=== PATIENT | male | born 1955 | race Caucasian/White ===

== ENCOUNTER → 2017-11-05 17:35 | Outpatient (CLI) | payer OTHER, SELFPAY ==
[2017-11-05] VITALS (16 sets, daily range): BP systolic 111–147; BP diastolic 53–87; PULSE 76–89; RESP 16–17; TEMP 36.1–36.5; O2SAT 99–100; BMI 36.2
[2017-11-05 20:22] LABS: POC Glucose,Bedside 336 (70-110)
[2017-11-06 00:30] VITALS: BP 124/63; PULSE 74; RESP 17; TEMP 36.2; O2SAT 98
[2017-11-06 00:50] VITALS: BP 126/67; PULSE 80; RESP 17; TEMP 36.1; O2SAT 98
[2017-11-06 01:50] VITALS: BP 125/70; PULSE 82; RESP 17; TEMP 36.1; O2SAT 100
[2017-11-06 02:11] VITALS: BP 125/70; PULSE 82; RESP 17; TEMP 36.1; O2SAT 100
[2017-11-06 02:13] LABS: Hematocrit 31.8 % (42.0-52.0)
[2017-11-06 02:17] LABS: Hemoglobin 9.5 g/dL (14.1-18.0)
== END | disposition home or self-care (01) ==
PROVIDERS: Family Provider Family Medicine; PCP Family Medicine; Visit Provider Internal Medicine Adolescent Medicine
DX: D64.9 Anemia, unspecified (principal)
CPT/HCPCS: 36415; 36430; 82962; 85014; 85018; 86850; P9016

== ENCOUNTER → 2017-11-07 10:14 | Outpatient (CLI) | payer OTHER, SELFPAY ==
[2017-11-07 13:27] LABS: Basophils % 0.7 % (0.1-2.0); Eosinophils # 0.2 K/mm3 (0.0-0.4); Eosinophils % 3.5 % (0.1-12.0); Hematocrit 32.5 % (42.0-52.0); Hemoglobin 9.6 g/dL (14.1-18.0); Lymphocytes % 41.9 K/mm3 (10-50); Mean Corpuscular HGB Conc 29.5 g/dL (31.8-35.4); Mean Corpuscular Volume 81.1 fl (80-94); Mean Platelet Volume 8.5 fl (7.4-10.4); Monocytes # 0.3 K/mm3 (0.1-1.0); Monocytes % 6.3 % (1.7-9.3); Neutrophils # 2.3 K/mm3 (1.8-7.8); Neutrophils % 47.5 % (37.0-80.0); Platelet Count 305 K/mm3 (142-424); Red Blood Count 4.01 M/mm3 (4.60-6.20); Red Cell Distribution Width 14.5 % (11.5-17.5); White Blood Count 4.8 K/mm3 (4.8-10.8)
[2017-11-07 13:51] LABS: Alanine Aminotransferase 143 U/L (12-78); Albumin Level 3.8 gm/dL (3.4-5.0); Albumin/Globulin Ratio 1.2 (1.1-1.8); Alkaline Phosphatase 140 U/L (46-116); Anion Gap 13.7 mEq/L (5-15); Aspartate Amino Transferase 99 U/L (15-37); Bilirubin,Total 0.5 mg/dL (0.2-1.0); Blood Urea Nitrogen 11 mg/dL (7-18); Calcium 8.9 mg/dL (8.5-10.1); Carbon Dioxide 28 mmol/L (21.0-32.0); Chloride 103 mmol/L (98-107); Creatinine,Serum 1.26 mg/dL (0.70-1.30); Estimated Glomerular Filt Rate 58 ml/min (>60); GFR (African American) 71 ML/MIN (>60); Globulin 3.3 gm/dl (1.3-3.2); Glucose 211 mg/dL (74-106); Magnesium 1.5 mg/dL (1.4-2.2); Potassium 3.7 mmoL/L (3.5-5.1); Sodium 141 mmol/L (136-145); Total Protein,Serum 7.1 gm/dL (6.4-8.2)
== END ==
PROVIDERS: Visit Provider Nurse Practitioner Family
DX: D64.9 Anemia, unspecified (principal); N18.9 Chronic kidney disease, unspecified
CPT/HCPCS: 36415; 80053; 83735; 85025

== ENCOUNTER → 2017-11-09 08:43 | Outpatient (CLI) | payer OTHER, SELFPAY ==
--- NOTE | 2017-11-09 08:45 | CA_ITS ---
PROCEDURE: 2-D M-mode and color Doppler study INDICATIONS FOR THE TEST: Chest pain X COPDX Heart Murmur Tobacco SmokingEX Palpitations FatigueX Syncope Edema HypertensionXDiabetes MellitusX Rheumatic Fever SOBXDOEXObesityXHyperlipidemiaX Family History HD Additional History CKD PATIENT INFORMATION HEIGHT: 71 WEIGHT:258 GENDER: Male B/P:170/81 2-D/M-MODE INTERPRETATION: 2-D MEASUREMENTS OBSERVED VALUES IN CMS Right Ventricular Dimension (RVDd) 2.3 Interventricular Septum (Thickness)(IVsd) .9 Left Ventricular Internal Dimensions(LVIDd) 5.7 Left Ventricular Posterior Wall (Thickness)(LVPWd) .9 Aortic Root 3.8 Aortic Cusp Separation 2.0 Left Atrial Dimensions (LAD) 3.3 2D 1. Left atrium is normal size, left ventricle is normal size, there is no concentric left ventricular hypertrophy, visually estimated ejection fraction 55% with no obvious regional wall motion abnormality. 2. The right atrium and right ventricle are normal size and contractility. 3. The aortic valve is minimally thickened and fibrosed. 4. The mitral and tricuspid valve leaflets are minimally thickened. 5. The pulmonic valve is poorly visualized. 6. No significant pericardial effusion noted. DOPPLER INTERROGATION: Doppler interrogation of the aortic, mitral and tricuspid valvular presence of mild mitral and tricuspid regurgitation, tricuspid regurgitant jet velocity is insufficient for calculation of the right ventricular systolic pressure, diastolic parameters are within normal range. CONCLUSION: 1. Normal left ventricular size, preserved left ventricular systolic function, visually estimated ejection fraction 55% with no obvious regional wall motion abnormality, diastolic parameters are within normal range. 2. Mild mitral and tricuspid regurgitation 3. No significant pericardial effusion noted.
== END ==
PROVIDERS: Family Provider Family Medicine; PCP Family Medicine; Visit Provider Internal Medicine
DX: D64.9 Anemia, unspecified
CPT/HCPCS: 93306

== ENCOUNTER → 2017-11-20 07:59 | Outpatient (CLI) | payer OTHER, SELFPAY ==
[2017-11-20 08:40] LABS: Basophils % 1.1 % (0.1-2.0); Eosinophils # 0.1 K/mm3 (0.0-0.4); Hematocrit 30.5 % (42.0-52.0); Hemoglobin 8.5 g/dL (14.1-18.0); Lymphocytes # 1.9 K/mm3 (0.7-4.5); Lymphocytes % 48.8 K/mm3 (10-50); Mean Corpuscular HGB Conc 28.1 g/dL (31.8-35.4); Mean Corpuscular Hemoglobin 22.8 pg (27.0-31.2); Mean Corpuscular Volume 81.1 fl (80-94); Mean Platelet Volume 9.4 fl (7.4-10.4); Monocytes # 0.3 K/mm3 (0.1-1.0); Monocytes % 8.4 % (1.7-9.3); Neutrophils # 1.5 K/mm3 (1.8-7.8); Neutrophils % 38.7 % (37.0-80.0); Platelet Count 237 K/mm3 (142-424); Red Blood Count 3.75 M/mm3 (4.60-6.20); White Blood Count 3.8 K/mm3 (4.8-10.8)
[2017-11-20 09:00] LABS: Alanine Aminotransferase 56 U/L (12-78); Albumin Level 3.4 gm/dL (3.4-5.0); Albumin/Globulin Ratio 1.1 (1.1-1.8); Alkaline Phosphatase 153 U/L (46-116); Anion Gap 11.2 mEq/L (5-15); Aspartate Amino Transferase 47 U/L (15-37); Bilirubin,Total 0.2 mg/dL (0.2-1.0); Blood Urea Nitrogen 11 mg/dL (7-18); Calcium 8.5 mg/dL (8.5-10.1); Carbon Dioxide 31 mmol/L (21.0-32.0); Chloride 102 mmol/L (98-107); Creatinine,Serum 1.24 mg/dL (0.70-1.30); Estimated Glomerular Filt Rate 59 ml/min (>60); Ferritin 16 ng/mL (8-388); GFR (African American) 72 ML/MIN (>60); Globulin 3.2 gm/dl (1.3-3.2); Glucose 295 mg/dL (74-106); Magnesium 1.5 mg/dL (1.4-2.2); Potassium 4.2 mmoL/L (3.5-5.1); Sodium 140 mmol/L (136-145); Total Protein,Serum 6.6 gm/dL (6.4-8.2)
[2017-11-21 08:33] LABS: Iron 47 ug/dL (38-169); Iron Saturation 10 % (15-55); UIBC 408 ug/dL (111-343); Vitamin B12 637 pg/mL (232-1245)
[2017-11-22 06:20] LABS: Folate >20.0 ng/mL (>3.0); Transferrin 367 mg/dL (200-370)
== END ==
PROVIDERS: Visit Provider Nurse Practitioner Family
DX: D64.9 Anemia, unspecified (principal); N18.9 Chronic kidney disease, unspecified
CPT/HCPCS: 36415; 80053; 82607; 82728; 82746; 83540; 83550; 83735; 84466; 85025

== ENCOUNTER → 2017-11-26 07:37 | Outpatient (CLI) | payer OTHER, SELFPAY ==
[2017-11-26 14:25] LABS: Basophils % 0.4 % (0.1-2.0); Eosinophils # 0.2 K/mm3 (0.0-0.4); Hematocrit 30.8 % (42.0-52.0); Hemoglobin 8.8 g/dL (14.1-18.0); Lymphocytes # 2.1 K/mm3 (0.7-4.5); Lymphocytes % 33.9 K/mm3 (10-50); Mean Corpuscular HGB Conc 28.6 g/dL (31.8-35.4); Mean Corpuscular Hemoglobin 22.2 pg (27.0-31.2); Mean Corpuscular Volume 77.6 fl (80-94); Mean Platelet Volume 8.5 fl (7.4-10.4); Monocytes # 0.3 K/mm3 (0.1-1.0); Monocytes % 5.4 % (1.7-9.3); Neutrophils # 3.4 K/mm3 (1.8-7.8); Neutrophils % 56.4 % (37.0-80.0); Platelet Count 254 K/mm3 (142-424); Red Blood Count 3.97 M/mm3 (4.60-6.20); Red Cell Distribution Width 14.9 % (11.5-17.5); White Blood Count 6.1 K/mm3 (4.8-10.8)
[2017-11-26 15:19] LABS: Alanine Aminotransferase 48 U/L (12-78); Albumin Level 3.5 gm/dL (3.4-5.0); Alkaline Phosphatase 154 U/L (46-116); Anion Gap 14.3 mEq/L (5-15); Aspartate Amino Transferase 33 U/L (15-37); Bilirubin,Total 0.3 mg/dL (0.2-1.0); Blood Urea Nitrogen 8 mg/dL (7-18); Calcium 8.2 mg/dL (8.5-10.1); Carbon Dioxide 28 mmol/L (21.0-32.0); Chloride 101 mmol/L (98-107); Creatinine,Serum 1.36 mg/dL (0.70-1.30); Estimated Glomerular Filt Rate 53 ml/min (>60); GFR (African American) 65 ML/MIN (>60); Globulin 3.4 gm/dl (1.3-3.2); Glucose 204 mg/dL (74-106); Potassium 3.3 mmoL/L (3.5-5.1); Sodium 140 mmol/L (136-145); Total Protein,Serum 6.9 gm/dL (6.4-8.2)
== END ==
PROVIDERS: Visit Provider Nurse Practitioner Family
DX: D64.9 Anemia, unspecified (principal)
CPT/HCPCS: 36415; 80053; 85025

== ENCOUNTER → 2017-12-12 10:39 | Outpatient (CLI) | payer OTHER, SELFPAY ==
[2017-12-12 13:56] LABS: Alanine Aminotransferase 76 U/L (12-78); Albumin Level 3.8 gm/dL (3.4-5.0); Alkaline Phosphatase 164 U/L (46-116); Anion Gap 12.9 mEq/L (5-15); Aspartate Amino Transferase 56 U/L (15-37); Bilirubin,Total 0.4 mg/dL (0.2-1.0); Blood Urea Nitrogen 10 mg/dL (7-18); Calcium 8.3 mg/dL (8.5-10.1); Carbon Dioxide 29 mmol/L (21.0-32.0); Chloride 93 mmol/L (98-107); Creatinine,Serum 1.76 mg/dL (0.70-1.30); Estimated Glomerular Filt Rate 40 ml/min (>60); GFR (African American) 48 ML/MIN (>60); Globulin 3.7 gm/dl (1.3-3.2); Glucose 353 mg/dL (74-106); Magnesium 1.2 mg/dL (1.4-2.2); Sodium 132 mmol/L (136-145); Total Protein,Serum 7.5 gm/dL (6.4-8.2)
[2017-12-12 14:01] LABS: Basophils % 0.5 % (0.1-2.0); Eosinophils # 0.2 K/mm3 (0.0-0.4); Eosinophils % 2.5 % (0.1-12.0); Hematocrit 35.8 % (42.0-52.0); Hemoglobin 9.9 g/dL (14.1-18.0); Lymphocytes % 26.8 K/mm3 (10-50); Mean Corpuscular HGB Conc 27.7 g/dL (31.8-35.4); Mean Corpuscular Volume 75.8 fl (80-94); Mean Platelet Volume 8.1 fl (7.4-10.4); Monocytes # 0.6 K/mm3 (0.1-1.0); Neutrophils # 4.7 K/mm3 (1.8-7.8); Neutrophils % 62.2 % (37.0-80.0); Platelet Count 289 K/mm3 (142-424); Red Blood Count 4.72 M/mm3 (4.60-6.20); Red Cell Distribution Width 15.1 % (11.5-17.5); White Blood Count 7.5 K/mm3 (4.8-10.8)
[2017-12-12 14:03] LABS: Potassium 2.9 mmoL/L (3.5-5.1)
== END ==
PROVIDERS: Visit Provider Nurse Practitioner Family
DX: D64.9 Anemia, unspecified (principal); N18.9 Chronic kidney disease, unspecified
CPT/HCPCS: 36415; 80053; 83735; 85025

== ENCOUNTER → 2017-12-31 07:09 | Outpatient (CLI) | payer OTHER, SELFPAY ==
[2017-12-31 14:01] LABS: Basophils % 0.5 % (0.1-2.0); Eosinophils # 0.2 K/mm3 (0.0-0.4); Hematocrit 33.4 % (42.0-52.0); Hemoglobin 9.9 g/dL (14.1-18.0); Lymphocytes # 2.8 K/mm3 (0.7-4.5); Lymphocytes % 47.8 K/mm3 (10-50); Mean Corpuscular HGB Conc 29.5 g/dL (31.8-35.4); Mean Corpuscular Hemoglobin 21.4 pg (27.0-31.2); Mean Corpuscular Volume 72.6 fl (80-94); Mean Platelet Volume 8.9 fl (7.4-10.4); Monocytes # 0.3 K/mm3 (0.1-1.0); Monocytes % 5.7 % (1.7-9.3); Neutrophils # 2.5 K/mm3 (1.8-7.8); Platelet Count 271 K/mm3 (142-424); Red Cell Distribution Width 16.4 % (11.5-17.5); White Blood Count 5.9 K/mm3 (4.8-10.8)
[2017-12-31 14:07] LABS: Alanine Aminotransferase 70 U/L (12-78); Albumin Level 3.2 gm/dL (3.4-5.0); Albumin/Globulin Ratio 0.8 (1.1-1.8); Alkaline Phosphatase 120 U/L (46-116); Anion Gap 14.8 mEq/L (5-15); Aspartate Amino Transferase 49 U/L (15-37); Bilirubin,Total 0.3 mg/dL (0.2-1.0); Blood Urea Nitrogen 11 mg/dL (7-18); Calcium 8.4 mg/dL (8.5-10.1); Carbon Dioxide 29 mmol/L (21.0-32.0); Chloride 96 mmol/L (98-107); Creatinine,Serum 1.73 mg/dL (0.70-1.30); Estimated Glomerular Filt Rate 40 ml/min (>60); GFR (African American) 49 ML/MIN (>60); Globulin 3.8 gm/dl (1.3-3.2); Glucose 222 mg/dL (74-106); Magnesium 1.5 mg/dL (1.4-2.2); Sodium 137 mmol/L (136-145)
[2017-12-31 14:12] LABS: Potassium 2.8 mmoL/L (3.5-5.1)
== END ==
PROVIDERS: Visit Provider Nurse Practitioner Family
DX: D64.9 Anemia, unspecified (principal)
CPT/HCPCS: 36415; 80053; 83735; 85025

== ENCOUNTER → 2018-01-08 07:02 | Outpatient (CLI) | payer OTHER, SELFPAY ==
[2018-01-08 13:49] LABS: Alanine Aminotransferase 101 U/L (12-78); Albumin Level 3.3 gm/dL (3.4-5.0); Albumin/Globulin Ratio 0.9 (1.1-1.8); Alkaline Phosphatase 135 U/L (46-116); Anion Gap 12.9 mEq/L (5-15); Aspartate Amino Transferase 77 U/L (15-37); Bilirubin,Total 0.2 mg/dL (0.2-1.0); Blood Urea Nitrogen 8 mg/dL (7-18); Calcium 8.4 mg/dL (8.5-10.1); Carbon Dioxide 28 mmol/L (21.0-32.0); Chloride 103 mmol/L (98-107); Creatinine,Serum 1.37 mg/dL (0.70-1.30); Estimated Glomerular Filt Rate 53 ml/min (>60); GFR (African American) 64 ML/MIN (>60); Globulin 3.6 gm/dl (1.3-3.2); Glucose 200 mg/dL (74-106); Potassium 3.9 mmoL/L (3.5-5.1); Sodium 140 mmol/L (136-145); Total Protein,Serum 6.9 gm/dL (6.4-8.2)
[2018-01-08 13:56] LABS: Basophils % 0.4 % (0.1-2.0); Eosinophils # 0.2 K/mm3 (0.0-0.4); Eosinophils % 2.9 % (0.1-12.0); Hematocrit 34.5 % (42.0-52.0); Hemoglobin 10.2 g/dL (14.1-18.0); Lymphocytes # 2.2 K/mm3 (0.7-4.5); Lymphocytes % 31.4 K/mm3 (10-50); Mean Corpuscular HGB Conc 29.6 g/dL (31.8-35.4); Mean Corpuscular Hemoglobin 21.2 pg (27.0-31.2); Mean Corpuscular Volume 71.6 fl (80-94); Mean Platelet Volume 7.9 fl (7.4-10.4); Monocytes # 0.4 K/mm3 (0.1-1.0); Monocytes % 6.1 % (1.7-9.3); Neutrophils # 4.2 K/mm3 (1.8-7.8); Neutrophils % 59.2 % (37.0-80.0); Platelet Count 286 K/mm3 (142-424); Red Blood Count 4.82 M/mm3 (4.60-6.20); Red Cell Distribution Width 16.4 % (11.5-17.5); White Blood Count 7.1 K/mm3 (4.8-10.8)
== END ==
PROVIDERS: Visit Provider Nurse Practitioner Family
DX: D64.9 Anemia, unspecified (principal); E87.6 Hypokalemia
CPT/HCPCS: 36415; 80053; 85025

== ENCOUNTER → 2018-01-25 10:50 | Outpatient (CLI) | payer OTHER, SELFPAY ==
[2018-01-25 12:34] LABS: Anion Gap 14.1 mEq/L (5-15); Blood Urea Nitrogen 8 mg/dL (7-18); Carbon Dioxide 33 mmol/L (21.0-32.0); Chloride 94 mmol/L (98-107); Estimated Glomerular Filt Rate 41 ml/min (>60); GFR (African American) 50 ML/MIN (>60); Glucose 126 mg/dL (74-106); Potassium 4.1 mmoL/L (3.5-5.1); Sodium 137 mmol/L (136-145)
== END ==
PROVIDERS: PCP Family Medicine; Visit Provider Internal Medicine Cardiovascular Disease
DX: I50.22 Chronic systolic (congestive) heart failure (principal); E78.5 Hyperlipidemia, unspecified
CPT/HCPCS: 36415; 80048; 83880

== ENCOUNTER → 2018-02-11 07:30 | Outpatient (CLI) | payer OTHER, SELFPAY ==
[2018-02-11 13:32] LABS: Basophils % 0.7 % (0.1-2.0); Eosinophils # 0.2 K/mm3 (0.0-0.4); Eosinophils % 2.7 % (0.1-12.0); Hematocrit 41.8 % (42.0-52.0); Hemoglobin 12.5 g/dL (14.1-18.0); Lymphocytes # 2.9 K/mm3 (0.7-4.5); Lymphocytes % 42.5 K/mm3 (10-50); Mean Corpuscular Volume 73.4 fl (80-94); Mean Platelet Volume 9.5 fl (7.4-10.4); Monocytes # 0.6 K/mm3 (0.1-1.0); Monocytes % 8.1 % (1.7-9.3); Neutrophils # 3.1 K/mm3 (1.8-7.8); Platelet Count 284 K/mm3 (142-424); Red Blood Count 5.69 M/mm3 (4.60-6.20); Red Cell Distribution Width 19.4 % (11.5-17.5); White Blood Count 6.7 K/mm3 (4.8-10.8)
[2018-02-11 15:20] LABS: Alanine Aminotransferase 91 U/L (12-78); Albumin Level 3.8 gm/dL (3.4-5.0); Albumin/Globulin Ratio 0.9 (1.1-1.8); Alkaline Phosphatase 152 U/L (46-116); Anion Gap 16.2 mEq/L (5-15); Aspartate Amino Transferase 67 U/L (15-37); Bilirubin,Total 0.4 mg/dL (0.2-1.0); Blood Urea Nitrogen 7 mg/dL (7-18); Calcium 9.4 mg/dL (8.5-10.1); Carbon Dioxide 28 mmol/L (21.0-32.0); Chloride 100 mmol/L (98-107); Creatinine,Serum 1.39 mg/dL (0.70-1.30); Estimated Glomerular Filt Rate 52 ml/min (>60); GFR (African American) 63 ML/MIN (>60); Globulin 4.1 gm/dl (1.3-3.2); Glucose 223 mg/dL (74-106); Potassium 4.2 mmoL/L (3.5-5.1); Sodium 140 mmol/L (136-145); Thyroid Stimulating Hormone 0.82 uIU/ml (0.358-3.740); Total Protein,Serum 7.9 gm/dL (6.4-8.2)
== END ==
LOC: LAB 07:32 → LAB.CARL 02-12 07:21
PROVIDERS: PCP Nurse Practitioner Family; Visit Provider Physician Assistant
DX: E11.9 Type 2 diabetes mellitus without complications (principal); E03.9 Hypothyroidism, unspecified
CPT/HCPCS: 36415; 80053; 84443; 85025

== ENCOUNTER → 2018-05-24 07:57 | Outpatient (CLI) | payer OTHER, SELFPAY ==
[2018-05-24 14:58] LABS: Basophils % 0.2 % (0.1-2.0); Eosinophils # 0.1 K/mm3 (0.0-0.4); Eosinophils % 0.6 % (0.1-12.0); Hematocrit 38.2 % (42.0-52.0); Hemoglobin 11.4 g/dL (14.1-18.0); Lymphocytes # 1.5 K/mm3 (0.7-4.5); Lymphocytes % 9.6 % (10-50); Mean Corpuscular HGB Conc 29.9 g/dL (31.8-35.4); Mean Corpuscular Hemoglobin 23.6 pg (27.0-31.2); Mean Platelet Volume 7.7 fl (7.4-10.4); Monocytes # 0.5 K/mm3 (0.1-1.0); Neutrophils # 13.3 K/mm3 (1.8-7.8); Neutrophils % 86.6 % (37.0-80.0); Platelet Count 278 K/mm3 (142-424); Red Blood Count 4.83 M/mm3 (4.60-6.20); Red Cell Distribution Width 20.3 % (11.5-17.5); White Blood Count 15.3 K/mm3 (4.8-10.8)
[2018-05-24 15:00] LABS: MANUAL DIFFERENTIAL MANUAL DIFFERENTIAL (MANUAL DIFF)
[2018-05-24 16:21] LABS: Alanine Aminotransferase 80 U/L (12-78); Albumin Level 3.3 gm/dL (3.4-5.0); Alkaline Phosphatase 144 U/L (46-116); Anion Gap 16.2 mEq/L (5-15); Aspartate Amino Transferase 50 U/L (15-37); Bilirubin,Total 0.5 mg/dL (0.2-1.0); Blood Urea Nitrogen 11 mg/dL (7-18); Calcium 8.4 mg/dL (8.5-10.1); Carbon Dioxide 25 mmol/L (21.0-32.0); Chloride 96 mmol/L (98-107); Creatinine,Serum 1.39 mg/dL (0.70-1.30); Estimated Glomerular Filt Rate 52 ml/min (>60); GFR (African American) 63 ML/MIN (>60); Globulin 3.4 gm/dl (1.3-3.2); Glucose 243 mg/dL (74-106); Potassium 3.2 mmoL/L (3.5-5.1); Sodium 134 mmol/L (136-145); Thyroid Stimulating Hormone 0.24 uIU/ml (0.358-3.740); Total Protein,Serum 6.7 gm/dL (6.4-8.2)
[2018-05-24 16:39] LABS: Hypochromasia 2+; Lymphocytes % 10 % (10-50); Monocytes % 1 % (2-9); Neutrophils % 89 % (42-76); Platelet Estimate Normal; Total Cells Counted 100
[2018-05-24 16:40] LABS: Microcytosis 1+
== END ==
PROVIDERS: PCP Nurse Practitioner Family; Visit Provider Nurse Practitioner Family
DX: E11.9 Type 2 diabetes mellitus without complications (principal); E03.9 Hypothyroidism, unspecified; D64.9 Anemia, unspecified
CPT/HCPCS: 36415; 80053; 83036; 84443; 85007; 85025

== ENCOUNTER 2018-06-14 11:34 | Outpatient (CLI) | payer OTHER, SELFPAY ==
--- NOTE | 2018-06-14 11:28 | PC.NURSE ---
HERE TO HAVE CROWDER CATHETER REMOVED PER MD ORDERS
[2018-06-14 13:33] LABS: Basophils # 0.1 K/mm3 (0-0.2); Basophils % 0.6 % (0.1-2.0); Eosinophils # 0.1 K/mm3 (0.0-0.4); Eosinophils % 1.2 % (0.1-12.0); Hematocrit 45.1 % (42.0-52.0); Hemoglobin 13.7 g/dL (14.1-18.0); Lymphocytes # 3.3 K/mm3 (0.7-4.5); Mean Corpuscular HGB Conc 30.4 g/dL (31.8-35.4); Mean Corpuscular Hemoglobin 23.4 pg (27.0-31.2); Mean Corpuscular Volume 77.1 fl (80-94); Mean Platelet Volume 8.8 fl (7.4-10.4); Monocytes # 0.8 K/mm3 (0.1-1.0); Neutrophils # 6.8 K/mm3 (1.8-7.8); Neutrophils % 61.2 % (37.0-80.0); Platelet Count 404 K/mm3 (142-424); Red Blood Count 5.85 M/mm3 (4.60-6.20); Red Cell Distribution Width 20.4 % (11.5-17.5); White Blood Count 11.1 K/mm3 (4.8-10.8)
[2018-06-14 14:39] LABS: Hemoglobin A1C 7.2 % (0.0-7.0)
[2018-06-14 15:21] LABS: Alanine Aminotransferase 89 U/L (12-78); Albumin Level 3.7 gm/dL (3.4-5.0); Albumin/Globulin Ratio 0.8 (1.1-1.8); Alkaline Phosphatase 152 U/L (46-116); Anion Gap 16.1 mEq/L (5-15); Aspartate Amino Transferase 47 U/L (15-37); Bilirubin,Total 0.4 mg/dL (0.2-1.0); Blood Urea Nitrogen 14 mg/dL (7-18); Calcium 9.6 mg/dL (8.5-10.1); Carbon Dioxide 27 mmol/L (21.0-32.0); Chloride 93 mmol/L (98-107); Chol/HDL Ratio 4.6 (1-3.5); Cholesterol 291 mg/dL (140-200); Creatinine,Serum 1.29 mg/dL (0.70-1.30); Estimated Glomerular Filt Rate 57 ml/min (>60); GFR (African American) 69 ML/MIN (>60); Globulin 4.4 gm/dl (1.3-3.2); Glucose 165 mg/dL (74-106); HDL Cholesterol 63 mg/dL (27-67); LDL Cholesterol 167 mg/dL (0-130); Magnesium 1.6 mg/dL (1.4-2.2); Phosphorous 3.1 mg/dL (2.4-4.9); Potassium 4.1 mmoL/L (3.5-5.1); Sodium 132 mmol/L (136-145); Total Protein,Serum 8.1 gm/dL (6.4-8.2); Triglycerides 303 mg/dL (30-200); VLDL Cholesterol 61 mg/dL (0-40)
[2018-06-15 07:15] LABS: Iron 39 ug/dL (38-169); UIBC 417 ug/dL (111-343)
[2018-06-15 22:51] LABS: Folate >20.0 ng/mL (>3.0); Iron Saturation 9 % (15-55); Vitamin B12 1010 pg/mL (232-1245)
[2018-06-16 12:26] LABS: Peripheral Smear Review Scanned Result
== END 2018-06-14 11:35 | disposition home or self-care (01) ==
PROVIDERS: PCP Nurse Practitioner Family; Visit Provider Nurse Practitioner Family
DX: R52 Pain, unspecified (principal); I10 Essential (primary) hypertension; D64.9 Anemia, unspecified; J44.9 Chronic obstructive pulmonary disease, unspecified
CPT/HCPCS: 36415; 80053; 80061; 82607; 82652; 82746; 83036; 83540; 83550; 83735; 84100; 85025

== ENCOUNTER → 2018-08-01 10:23 | Outpatient (CLI) | payer OTHER, SELFPAY ==
[2018-08-01 11:05] LABS: Basophils % 0.6 % (0.1-2.0); Eosinophils # 0.2 K/mm3 (0.0-0.4); Eosinophils % 4.4 % (0.1-12.0); Hematocrit 38.3 % (42.0-52.0); Hemoglobin 11.1 g/dL (14.1-18.0); Lymphocytes # 2.2 K/mm3 (0.7-4.5); Lymphocytes % 44.6 % (10-50); Mean Corpuscular HGB Conc 29.1 g/dL (31.8-35.4); Mean Corpuscular Volume 78.9 fl (80-94); Mean Platelet Volume 8.4 fl (7.4-10.4); Monocytes # 0.4 K/mm3 (0.1-1.0); Monocytes % 7.6 % (1.7-9.3); Neutrophils # 2.1 K/mm3 (1.8-7.8); Neutrophils % 42.9 % (37.0-80.0); Platelet Count 268 K/mm3 (142-424); Red Blood Count 4.85 M/mm3 (4.60-6.20); White Blood Count 4.9 K/mm3 (4.8-10.8)
== END ==
PROVIDERS: Visit Provider Internal Medicine Cardiovascular Disease
DX: D64.9 Anemia, unspecified (principal); E11.9 Type 2 diabetes mellitus without complications; E78.5 Hyperlipidemia, unspecified; I10 Essential (primary) hypertension; I50.22 Chronic systolic (congestive) heart failure; J44.9 Chronic obstructive pulmonary disease, unspecified; N18.2 Chronic kidney disease, stage 2 (mild); R00.0 Tachycardia, unspecified; R06.02 Shortness of breath
CPT/HCPCS: 36415; 83880; 85025

== ENCOUNTER → 2018-08-06 09:19 | Outpatient (POV) | payer OTHER, SELFPAY | PROVIDERS: Visit Provider Internal Medicine | DX: Z00.00 Encounter for general adult medical examination without abnormal findings (principal) ==

== ENCOUNTER → 2018-11-04 07:41 | Outpatient (CLI) | payer OTHER, SELFPAY ==
--- NOTE | 2018-11-04 07:44 | US_ITS ---
US Arterial Ankle Brachial Ind History: Claudication, rest pain, history of smoking ORDERING PHYSICIAN: Gavin Izaguirre MD PATIENT AGE: 63 years TECHNIQUE: Segmental pressures obtained of both right and left leg. These are compared to brachial blood pressure to yield index at each level sampled including summary TRUNG. The data sheets from the procedure are available in PACS FINDINGS Rest study only performed today No prior studies available for comparison. Blood pressures reported are in millimeters mercury. RIGHT LEG TRUNG = 1.32. RIGHT LEG TBI=1.27 Brachial BP: 127 Thigh BP: 133 Calf BP: 164 Ankle PT: 168 Ankle DP : 157 Digit =161 LEFT LEG TRUNG = 1.33 LEFT LEG TBI= 1.32 Brachial BPD: 118 Thigh BP: 150 Calf BP: 163 Ankle PT:169 Ankle DP: 152 Digit = 168 Pulses and waveforms: Normal. The waveforms are normal except at the right ankle were the pulse is a radical on the tracing obtained. IMPRESSION: The ABIs as reported above are within normal limits. Waveforms and pulses are also unremarkable.
== END ==
PROVIDERS: PCP Family Medicine; Visit Provider Internal Medicine
DX: I50.22 Chronic systolic (congestive) heart failure (principal); M79.604 Pain in right leg; M79.605 Pain in left leg; R06.02 Shortness of breath; Z86.711 Personal history of pulmonary embolism
CPT/HCPCS: 93922

== ENCOUNTER → 2019-03-06 09:52 | Outpatient (CLI) | payer OTHER, SELFPAY ==
[2019-03-06 14:46] LABS: Basophils % 0.6 % (0.1-2.0); Eosinophils # 0.2 K/mm3 (0.0-0.4); Eosinophils % 2.2 % (0.1-12.0); Hematocrit 38.4 % (42.0-52.0); Hemoglobin 11.3 g/dL (14.1-18.0); Lymphocytes # 2.8 K/mm3 (0.7-4.5); Lymphocytes % 40.4 % (10-50); Mean Corpuscular HGB Conc 29.3 g/dL (31.8-35.4); Mean Corpuscular Hemoglobin 23.8 pg (27.0-31.2); Mean Corpuscular Volume 81.3 fl (80-94); Mean Platelet Volume 10.6 fl (7.4-10.4); Monocytes # 0.5 K/mm3 (0.1-1.0); Monocytes % 7.1 % (1.7-9.3); Neutrophils # 3.4 K/mm3 (1.8-7.8); Neutrophils % 49.7 % (37.0-80.0); Platelet Count 309 K/mm3 (142-424); Red Blood Count 4.73 M/mm3 (4.60-6.20); White Blood Count 6.9 K/mm3 (4.8-10.8)
[2019-03-06 15:13] LABS: Alanine Aminotransferase 40 U/L (12-78); Albumin Level 3.7 gm/dL (3.4-5.0); Albumin/Globulin Ratio 0.9 (1.1-1.8); Alkaline Phosphatase 145 U/L (46-116); Anion Gap 15.2 mEq/L (5-15); Aspartate Amino Transferase 30 U/L (15-37); Bilirubin,Total 0.2 mg/dL (0.2-1.0); Blood Urea Nitrogen 8 mg/dL (7-18); Calcium 9.5 mg/dL (8.5-10.1); Carbon Dioxide 27 mmol/L (21.0-32.0); Chloride 92 mmol/L (98-107); Chol/HDL Ratio 2.7 (1-3.5); Cholesterol 111 mg/dL (140-200); Estimated Glomerular Filt Rate 61 ml/min (>60); Free Thyroxine Index 2.8 ug/dL (5.93-13.13); GFR (African American) 74 ML/MIN (>60); Globulin 4.3 gm/dl (1.3-3.2); Glucose 170 mg/dL (74-106); HDL Cholesterol 41 mg/dL (27-67); LDL Cholesterol 46 mg/dL (0-130); Potassium 4.2 mmoL/L (3.5-5.1); Sodium 130 mmol/L (136-145); T4 (Thyroxine) 8.1 ug/dl (4.7-13.3); Thyroid Stimulating Hormone 4.45 uIU/ml (0.358-3.740); Triglycerides 122 mg/dL (30-200); Triiodothryronine (T3) Uptake 34 % (31-39); VLDL Cholesterol 24 mg/dL (0-40)
[2019-03-06 15:56] LABS: Hemoglobin A1C 7.9 % (0.0-7.0)
== END ==
PROVIDERS: PCP Family Medicine; Visit Provider Family Medicine
DX: E11.9 Type 2 diabetes mellitus without complications (principal); E03.9 Hypothyroidism, unspecified; Z79.4 Long term (current) use of insulin
CPT/HCPCS: 36415; 80053; 80061; 83036; 84436; 84443; 84479; 85025

== ENCOUNTER → 2020-06-01 14:31 | Outpatient (CLI) | payer MEDICAID, SELFPAY ==
[2020-06-01 15:22] LABS: Basophils % 0.7 % (0.1-2.0); Eosinophils # 0.1 K/mm3 (0.0-0.4); Eosinophils % 1.3 % (0.1-12.0); Hematocrit 51.4 % (42.0-52.0); Hemoglobin 17.2 g/dL (14.1-18.0); Lymphocytes # 2.8 K/mm3 (0.7-4.5); Lymphocytes % 46.4 % (10-50); Mean Corpuscular HGB Conc 33.4 g/dL (31.8-35.4); Mean Corpuscular Volume 95.7 fl (80-94); Mean Platelet Volume 10.6 fl (7.4-10.4); Monocytes # 0.4 K/mm3 (0.1-1.0); Monocytes % 6.7 % (1.7-9.3); Neutrophils # 2.7 K/mm3 (1.8-7.8); Platelet Count 192 K/mm3 (142-424); Red Blood Count 5.37 M/mm3 (4.60-6.20); Red Cell Distribution Width 14.4 % (11.5-17.5)
[2020-06-01 15:52] LABS: Alanine Aminotransferase 148 U/L (12-78); Albumin Level 4.6 g/dl (3.5-5.0); Alkaline Phosphatase 168 U/L (38-126); Anion Gap 14.7 mEq/L (5-15); Aspartate Amino Transferase 121 U/L (17-59); Bilirubin,Direct 0.2 mg/dl (0.0-0.4); Bilirubin,Indirect 0.3 mg/dL (0.0-0.9); Bilirubin,Total 0.5 mg/dl (0.2-1.3); Bilirubin,Unconjugated 0.3 mg/dL (0.0-1.1); Blood Urea Nitrogen 11 mg/dl (9-20); Calcium 10.1 mg/dl (8.4-10.2); Carbon Dioxide 33 mmol/L (22.0-30.0); Chloride 96 mmol/L (98-107); Chol/HDL Ratio 3.4 (1-3.5); Cholesterol 141 mg/dl (140-200); Estimated Glomerular Filt Rate 51 ml/min (>60); GFR (African American) 62 ML/MIN (>60); Glucose 306 mg/dl (74-100); HDL Cholesterol 42 mg/dl (40-60); Potassium 4.7 mmoL/L (3.5-5.1); Sodium 139 mmol/L (136-145); Triglycerides 161 mg/dl (30-150); VLDL Cholesterol 32 mg/dL (0-40)
[2020-06-01 16:03] LABS: Direct LDL Cholesterol 75.68 mg/dL (100-129)
== END ==
PROVIDERS: Visit Provider Urology
DX: R06.02 Shortness of breath (principal); E11.8 Type 2 diabetes mellitus with unspecified complications; E78.49 Other hyperlipidemia; I50.22 Chronic systolic (congestive) heart failure; J44.9 Chronic obstructive pulmonary disease, unspecified; R94.31 Abnormal electrocardiogram [ECG] [EKG]; D64.89 Other specified anemias; N18.2 Chronic kidney disease, stage 2 (mild); I11.0 Hypertensive heart disease with heart failure; Z79.4 Long term (current) use of insulin
CPT/HCPCS: 36415; 80048; 80061; 80076; 85025

== ENCOUNTER → 2020-06-09 11:56 | Outpatient (CLI) | payer MEDICAID, SELFPAY ==
--- NOTE | 2020-06-09 11:57 | CA_ITS ---
APPROVED REPORT EXAM: Comprehensive 2D, Doppler, and color-flow Echocardiogram Front Desk: Amber Dahl CRT Ht: 5 ft 11 in Wt: 220lbs BSA: 2.20 BP: 122/80 mmHg Indications: Chest Pain, COPD, Diabetes, Hyperlipidemia, Hypertension/HDD, CKD 2D Dimensions LVOT 1.59 cm (M/F) 1.5-2.5 M-Mode Dimensions RVDd 1.56 cm (0.9-2.6) LA Diam 2.56 cm (1.9-4.0) LVDd 4.72 cm (3.5-5.7) Ao Diam 4.20 cm (2.0-3.7) LVDs 3.25 cm (3.5-5.7) IVSd 1.28 cm (0.6-1.1) PWd 0.59 cm (0.6-1.1) EF (Teich) 58.90% FS 31.10% EDV (Teich) 103.40 mL ESV (Teich) 42.50 mL LV Diastology E Decel Time 213.00 (160-240 msec) E/A Ratio 1.00 MED E' 7.30 (< 7 cm/sec) MED A' 13.00 cm/s E'/MED E' Ratio 10.85 (>14) LAT E' 11.30 (<10 cm/sec) LAT A' 12.50 cm/s E/LAT E' Ratio 7.01 (>14) Aortic Valve AoV Peak Joseph. 133.00 (50-130 cm/s) AO Peak GR. 7.10 mmHg AO Mean GR. 4.30 (<5 mmHg) AO VTI 21.91 (18-25 cm) Mitral Valve MV A Velocity 79.00 (40-130 cm/s) E/A Ratio 1.00 MV Decel. Time 213.00 (160-240 ms) Pulmonary Valve PV Peak Velocity 72.00 (50-150 cm/s) Tricuspid Valve TR P. Velocity 232.00 cm/s RAP Estimate 10.00 mmHg RVSP 31.50 mmHg Left Ventricle Technically difficult study because of the patient factors and poor acoustic windows. Left atrium is mildly enlarged, left ventricle is normal size, there is mild concentric left ventricular hypertrophy, visually estimated ejection fraction 55% with no obvious regional wall motion abnormality, grade 1 diastolic dysfunction seen without tissue Doppler evidence of raise left atrial pressure. Right Ventricle Right atrium and right ventricular qualitatively mildly enlarged with normal contractility. Aortic Valve Aortic valve is minimally thickened and fibrosed, there is no aortic stenosis or aortic insufficiency. Mitral Valve Mitral valve is grossly normal, there is mild mitral regurgitation. Tricuspid Valve Tricuspid valve is grossly normal, there is mild tricuspid regurgitation, tricuspid regurgitation jet velocity is inadequate for calculation of the right ventricular systolic pressure. Pulmonic Valve Pulmonic valve is poorly visualized. Great Vessels Aortic root is normal size. Pericardium No significant pericardial effusion noted. Conclusion 1. Technically difficult study, mild biatrial enlargement, normal left ventricular size, mild concentric left ventricular hypertrophy, visually estimated ejection fraction 55% with no regional wall motion abnormality, grade 1 diastolic dysfunction seen without tissue Doppler evidence of raise left atrial pressure. 2. Mildly enlarged right ventricle with normal contractility. 3. Mild mitral and tricuspid regurgitation. 4. No significant pericardial effusion noted. Electronically signed by : Nasir Aguayo, 06/10/2020 15:29:02
== END ==
PROVIDERS: PCP Family Medicine; Visit Provider Urology
DX: R06.02 Shortness of breath (principal); R94.31 Abnormal electrocardiogram [ECG] [EKG]; I50.22 Chronic systolic (congestive) heart failure; D64.89 Other specified anemias; E11.8 Type 2 diabetes mellitus with unspecified complications; E78.49 Other hyperlipidemia; I10 Essential (primary) hypertension; J44.9 Chronic obstructive pulmonary disease, unspecified; N18.2 Chronic kidney disease, stage 2 (mild)
CPT/HCPCS: 93306

== ENCOUNTER 2021-12-25 19:30 | Observation (INO) | payer MEDICAID, SELFPAY ==
[2021-12-25 19:29] VITALS: BP 142/88; PULSE 91; RESP 20; TEMP 36.9; O2SAT 97; BMI 33.0
--- NOTE | 2021-12-25 20:01 | ECG_ITS ---
APPROVED REPORT Exam: Resting ECG HR:90 bpm ECG Measurements Heart Rate 90 AXES DE 160 P 7 QRSd 94 QRS -32 QT 344 T 17 QTc 391 Conclusion SINUS RHYTHM LEFT AXIS DEVIATION [QRS AXIS < -30] Late r wave progression ABNORMAL ECG UNCONFIRMED REPORT Electronically signed by : Clifton Kulkarni MD 12/27/2021 21:12:13
--- NOTE | 2021-12-25 20:01 | XR_ITS ---
PROCEDURE INFORMATION: Exam: XR Chest Exam date and time: 12/25/2021 8:01 PM Age: 66 years old Clinical indication: Dyspnea; Additional info: Short of air TECHNIQUE: Imaging protocol: Radiologic exam of the chest. Views: 2 views. COMPARISON: CR CXR2 XR chest AP 11/05/2017 2:06 PM FINDINGS: Lungs: No consolidation. Pleural spaces: No pneumothorax. Heart/Mediastinum: No cardiomegaly. Bones/joints: No acute fracture. IMPRESSION: No acute findings.
[2021-12-25 20:10] LABS: Coronavirus 19, PCR Not Detected (NotDetected); Influenza A, PCR Not Detected (NotDetected); Influenza B, PCR Not Detected (NotDetected)
[2021-12-25 20:16] LABS: Alanine Aminotransferase 39 U/L (12-78); Albumin/Globulin Ratio 1.4 (1.1-1.8); Alkaline Phosphatase 116 U/L (38-126); Anion Gap 11.9 mEq/L (5-15); Aspartate Amino Transferase 42 U/L (17-59); Blood Urea Nitrogen 11 mg/dl (9-20); Calcium 8.9 mg/dl (8.4-10.2); Carbon Dioxide 27 mmol/L (22.0-30.0); Chloride 102 mmol/L (98-107); Creatinine Clearance Estimated 103 mL/min (50-200); Estimated Glomerular Filt Rate 67 ml/min (>60); GFR (African American) 82 ML/MIN (>60); Globulin 2.9 g/dL (1.3-3.2); Glucose 348 mg/dl (74-100); Potassium 3.9 mmoL/L (3.5-5.1); Sodium 137 mmol/L (136-145); Total Protein,Serum 6.9 g/dl (6.3-8.2)
[2021-12-25 20:17] LABS: Bilirubin,Total < 0.1 mg/dl (0.2-1.3); Lactic Acid 2.3 mmol/L (0.7-2.1)
[2021-12-25 20:30] LABS: Troponin I < 0.01 ng/ml (0.00-0.034)
[2021-12-25 20:31] VITALS: BP 136/74; PULSE 91; RESP 23; O2SAT 96
[2021-12-25 20:31] LABS: NT Pro Brain Natriuretic Pep. 26.5 pg/mL (0-125)
[2021-12-25 20:33] LABS: Basophils % 0.4 % (0.1-2.0); Eosinophils # 0.1 K/mm3 (0.0-0.4); Eosinophils % 1.4 % (0.1-12.0); Hematocrit 44.6 % (42.0-52.0); Hemoglobin 15.1 g/dL (14.1-18.0); Lymphocytes # 2.5 K/mm3 (0.7-4.5); Lymphocytes % 25.4 % (10-50); Mean Corpuscular HGB Conc 33.8 g/dL (31.8-35.4); Mean Corpuscular Hemoglobin 31.6 pg (27.0-31.2); Mean Corpuscular Volume 93.3 fl (80-94); Mean Platelet Volume 9.3 fl (7.4-10.4); Monocytes # 0.7 K/mm3 (0.1-1.0); Monocytes % 6.7 % (1.7-9.3); Neutrophils # 6.4 K/mm3 (1.8-7.8); Neutrophils % 66.1 % (37.0-80.0); Platelet Count 235 K/mm3 (142-424); Red Blood Count 4.78 M/mm3 (4.60-6.20); Red Cell Distribution Width 13.3 % (11.5-17.5); White Blood Count 9.7 K/mm3 (4.8-10.8)
--- NOTE | 2021-12-25 20:55 | HMH.EDSOB ---
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 The time I documented below is in addition to time spent performing reported procedures but includes the following listed in this critical care notation. Medical Decision Making - Medical Records Medical records reviewed: Yes: I reviewed the patient's medical records. - [place] Inquiry Pt receiving controlled substance: No Vital Signs: 12/25/21 19:29 Temperature 98.5 F Temperature Source Oral Pulse Rate [Left] 91 H Respiratory Rate 20 Blood Pressure [Right Arm] 142/88 H Blood Pressure Mean [Right Arm] 106 02 Sat by Pulse Oximetry 97 Oxygen Delivery Method Nasal Cannula Oxygen Flow Rate (LPM) 3 - Lab Data Lab results reviewed: Yes: I reviewed the patient's lab results. Lab Results 12/25/21 19:41: WBC 9.7, RBC 4.78, Hgb 15.1, Hct 44.6, MCV 93.3, MCH 31.6 H, MCHC 33.8, RDW 13.3, Plt Count 235, MPV 9.3, Neut % (Auto) 66.1, Lymph % (Auto) 25.4, [place] % (Auto) 6.7, Eos % (Auto) 1.4, Baso % (Auto) 0.4, Neut # (Auto) 6.4, Lymph # (Auto) 2.5, [place] # (Auto) 0.7, Eos # (Auto) 0.1, Baso # (Auto) 0.0 12/25/21 19:41: Sodium 137, Potassium 3.9, Chloride 102, Carbon Dioxide 27, Anion Gap 11.9, BUN 11, Creatinine 1.10, Estimated Creat Clear 103, Estimated GFR 67, Est GFR ( Amer) 82, Glucose 348 H, Calcium 8.9, Total Bilirubin < 0.1 L, AST 42, ALT 39, Alkaline Phosphatase 116, Troponin I < 0.01, Total Protein 6.9, Albumin 4.0, Globulin 2.9, Albumin/Globulin Ratio 1.4 12/25/21 19:41: Lactate 2.3 H 12/25/21 19:41: SARS-CoV-2 (PCR) Not detected, Influenza A Untype (PCR) Not detected, Influenza Type B (PCR) Not detected 12/25/21 19:41: NT-Pro-B Natriuret Pep 26.5 Result diagrams: 12/25/21 19:41 12/25/21 19:41 Orders (Tests/Meds): ED MEDICATIONS Generic Name Dose Route Start Last Admin Trade Name Freq PRN Reason Stop Dose Admin Sodium Chloride 1,000 mls @ 999 mls/hr 12/25/21 20:15 Sod Chlor 0.9% 1000ml Bag IV 12/25/21 21:15 .Q1H1M [facility] ORDERS Category Date Time Status Troponin I Q3H Lab 12/25/21 23:15 Ordered Troponin I Q3H Lab 12/26/21 02:15 Ordered Blood Culture Stat Micro 12/25/21 19:41 Received - Radiology Data #1 Image(s): Chest Image Reviewed: Yes I have reviewed radiologist's interpretation Preliminary Findings: Normal/NAD - ECG Data Tracing #1 Normal Sinus Rhythm: Yes Ischemic changes: non-specific ST-T wave changes - DEBRA Score for Non-Stemi Age of Patient: 60-69 years old Heart Rate: 90-109 bpm Systolic Blood Pressure: 140-159 mmHg Serum Creatinine: 0.80-1.19 mg/dl CHF Killip Class: I-No CHF Other Risk Factors: None Non-Stemi Risk Score: 104 Resp/SOB HPI - General Chief Complaint: Shortness of Breath/Dyspnea Stated Complaint: SOA Time Seen by Provider: 12/25/21 20:00 Mode of Arrival: EMS Source of Information: Patient, EMS, Medical Record Limitations: No Limitations Description of Symptoms (Recalled from ER Triage Doc. by RN): Pt states that he has just finished antibiotics from left lower lobe pnemonia pt is on 3 l for copd states that he just feels bad and has a trouble breathing - History of Present Illness over the last 10 days has
[2021-12-25 21:01] VITALS: BP 128/71; PULSE 88; O2SAT 98
[2021-12-25 21:36] LABS: Chol/HDL Ratio 4.7 (1-3.5); Cholesterol 189 mg/dl (140-200); HDL Cholesterol 40 mg/dl (40-60); Triglycerides 232 mg/dl (30-150); VLDL Cholesterol 46 mg/dL (0-40)
[2021-12-25 21:40] LABS: Hemoglobin A1C 6.7 % (4.0-6.0)
[2021-12-25 21:47] LABS: Direct LDL Cholesterol 106.48 mg/dL (100-129)
[2021-12-25 22:01] LABS: T4 (Thyroxine) 9.8 ug/dl (5.53-11.0)
[2021-12-25 22:14] LABS: Thyroid Stimulating Hormone 0.23 uIU/mL (0.465-4.68)
[2021-12-25 22:31] VITALS: BP 136/83; PULSE 89; RESP 17; TEMP 36.7; O2SAT 97; BMI 33.5
--- NOTE | 2021-12-25 22:31 | PC.NURSE ---
patient up to floor via wheelchair @ this time.
[2021-12-25 22:34] VITALS: BP 128/71; PULSE 88; RESP 18; TEMP 36.8; O2SAT 99
[2021-12-25 22:39] LABS: Reflex Lactic Add Lactic Reflex
[2021-12-25 23:00] VITALS: PULSE 80
[2021-12-26] VITALS (23 sets, daily range): BP systolic 107–145; BP diastolic 60–84; PULSE 57–103; RESP 16–20; TEMP 36.4–36.8; O2SAT 94–100; BMI 33.5
[2021-12-26 00:37] LABS: Lactic Acid Follow Up (RFLX 1) 1.5 mmol/L (0.7-2.1)
[2021-12-26 01:05] LABS: Troponin I < 0.01 ng/ml (0.00-0.034)
[2021-12-26 03:44] LABS: Troponin I < 0.01 ng/ml (0.00-0.034)
[2021-12-26 05:47] LABS: POC Glucose,Bedside 300 (70-110)
--- NOTE | 2021-12-26 06:08 | PC.NURSE ---
PT ALERT AND ORIENTED X 4. PT IS CURRENTLY ON 3 L NC, PT STATES HE NORMALLY WEARS 2-3L NC AT HOME. PT IS MAINTAINING O2 SAT >92%. LUNGS SOUNDS - CLEAR, DIMINISHED. PT HAS + 1 EDEMA TO BILATERAL LOWER EXT. BS ACTIVE X 4 - LAST BM WAS 12/25/21 PER PT REPORT. PT STATES HE HAS EPISODES OF URINARY AND BOWEL INCONTINENCE. PT HAD 1 EPISODE OF URINARY INCONTINENCE THIS SHIFT, PT CLEANED AND DEPENDS CHANGED. OTHER TIME PT USED URINAL. PT HAS RESTED WELL THIS SHIFT. MONITORING PT VIA TELE - NSR. PT HAS HAD NO C/O OF CHEST PAIN OR SOA. NITRO PASTE NOTED TO CHEST. CHECKING BLOOD GLUCOSE AC&HS. IV FLUIDS INFUSING PER ORDER. NO COMPLAINTS VOICED THUS FAR DURING MY SHIFT. PT IS TO HAVE A CARDIOLOGY AND PULMONARY CONSULT. CALL LIGHT IN REACH, BED ALARM ON FOR SAFETY.
[2021-12-26 06:42] LABS: Basophils % 0.2 % (0.1-2.0); Eosinophils # 0.1 K/mm3 (0.0-0.4); Eosinophils % 0.7 % (0.1-12.0); Hematocrit 40.9 % (42.0-52.0); Mean Corpuscular HGB Conc 34.3 g/dL (31.8-35.4); Mean Corpuscular Hemoglobin 31.2 pg (27.0-31.2); Mean Corpuscular Volume 90.9 fl (80-94); Monocytes # 0.1 K/mm3 (0.1-1.0); Monocytes % 1.4 % (1.7-9.3); Neutrophils # 5.3 K/mm3 (1.8-7.8); Neutrophils % 81.7 % (37.0-80.0); Platelet Count 199 K/mm3 (142-424); Red Cell Distribution Width 13.3 % (11.5-17.5); White Blood Count 6.5 K/mm3 (4.8-10.8)
[2021-12-26 06:52] LABS: Anion Gap 11.3 mEq/L (5-15); Blood Urea Nitrogen 13 mg/dl (9-20); Calcium 8.8 mg/dl (8.4-10.2); Carbon Dioxide 25 mmol/L (22.0-30.0); Chloride 106 mmol/L (98-107); Creatinine Clearance Estimated 115 mL/min (50-200); Estimated Glomerular Filt Rate 75 ml/min (>60); GFR (African American) 91 ML/MIN (>60); Glucose 348 mg/dl (74-100); Magnesium 1.6 mg/dl (1.6-2.3); Potassium 4.3 mmoL/L (3.5-5.1); Sodium 138 mmol/L (136-145)
--- NOTE | 2021-12-26 07:28 | HMH.PHAVTE ---
[facility] Pharmacy VTE Monitoring - Patient Demographics Admission date: 12/25/21 Report Date: 12/26/21 Time: 07:28 Allergies/Adverse Reactions: Patient Allergies morphine Adverse Reaction (Verified 12/25/21 22:36) Height: 1.8 m Weight: 108.499 kg Patient Problems: Current Active Problems (Last Updated 06/10/19 @ 13:26 by Dai Peraza RN) Acute exacerbation of chronic obstructive airways disease (Acute) Obesity (BMI 30-39.9) (Acute) Atypical angina (Acute) Diabetes mellitus (Chronic) - VTE Risk Labs: VTE Related Lab Results Hgb 14.0 g/dL (14.1-18.0) L 12/26/21 06:30 Hct 40.9 % (42.0-52.0) L 12/26/21 06:30 Plt Count 199 K/mm3 (142-424) 12/26/21 06:30 BUN 13 mg/dl (9-20) 12/26/21 06:30 Creatinine 1.00 mg/dl (0.66-1.25) 12/26/21 06:30 Estimated Creat Clear 115 mL/min (50-200) 12/26/21 06:30 VTE Score: 9 VTE Risk Level: Moderate Risk - Prophylaxis VTE Prophylaxis Ordered?: Yes Types of VTE Prophylaxis: TEDS Knee High Location of Applied Device: Bilateral Lower Extremeties
--- NOTE | 2021-12-26 08:00 | CA_ITS ---
APPROVED REPORT EXAM: Comprehensive 2D, Doppler, and color-flow Echocardiogram Bottom Ironer: Amber Dahl CRT Ht: 5 ft 11 in Wt: 237lbs BSA: 2.27 BP: 142/88 mmHg Indications: Chest Pain, COPD, Shortness of Breath, Diabetes, Obesity, CAD, Hyperlipidemia, Hypertension/HDD, CKD, home O2 2D Dimensions LVOT 2.01 cm (M/F) 1.5-2.5 M-Mode Dimensions RVDd 2.14 cm (0.9-2.6) LA Diam 3.06 cm (1.9-4.0) LVDd 4.88 cm (3.5-5.7) Ao Diam 4.10 cm (2.0-3.7) LVDs 3.58 cm (3.5-5.7) IVSd 1.60 cm (0.6-1.1) PWd 0.62 cm (0.6-1.1) EF (Teich) 51.90% FS 26.60% EDV (Teich) 111.70 mL ESV (Teich) 53.70 mL LV Diastology E Decel Time 150.00 (160-240 msec) E/A Ratio 0.64 Aortic Valve AO Peak GR. 9.80 mmHg Mitral Valve MV E Max Joseph. 55.00 (40-130 cm/s) MV A Velocity 86.00 (40-130 cm/s) E/A Ratio 0.64 MV Decel. Time 150.00 (160-240 ms) MV PHT 44.00 ms Pulmonary Valve PV Peak Velocity 133.00 (50-150 cm/s) Tricuspid Valve TR P. Velocity 307.00 cm/s RAP Estimate 10.00 mmHg RVSP 47.70 mmHg Left Ventricle Technically difficult study because of the patient factors and poor acoustic windows. Left atrium is mildly enlarged, left ventricle is normal size, estimated ejection fraction 55% with no regional wall motion abnormality, Doppler evidence of impaired LV relaxation seen. Right Ventricle Right atrium and right ventricle are mildly enlarged with normal contractility. Aortic Valve Aortic valve is minimally thickened and fibrosed there is no aortic stenosis or aortic insufficiency. Mitral Valve Mitral valve is grossly normal, there is trace mitral regurgitation. Tricuspid Valve Tricuspid grossly normal, there is trace tricuspid regurgitation, tricuspid regurgitation jet velocity is inadequate for calculation of the right ventricular systolic pressure. Pulmonic Valve Pulmonic valve is poorly visualized. Great Vessels Aortic root is normal size. Inferior vena cava is poorly visualized. Pericardium No significant pericardial effusion noted. Conclusion 1. Normal left ventricular size, preserved left ventricular systolic function, estimated ejection fraction 55% with no regional wall motion abnormality, Doppler evidence of impaired LV relaxation seen. 2. Mildly enlarged right ventricle with normal contractility. 3. Trace mitral and tricuspid regurgitation. 4. No significant pericardial effusion. 5. Inferior vena cava is poorly visualized. Electronically signed by : Nasir Aguayo MD 12/26/2021 19:48:02
--- NOTE | 2021-12-26 09:35 | HMH.PHAINT ---
MEDICATION RECONCILIATION COMPLETED ON PATIENT USING EXTERNAL FILL HISTORY FROM PHARMACY AND LIST FROM PCP OFFICE. -CON HERNANDEZD
--- NOTE | 2021-12-26 09:46 | HMH.PULMCON ---
*Admission Date: 12/25/21 *Reason for consult:: COPD exacerbation *History of present illness: Mr. Nichole is a 66-year-old male prior smoker around [id number] smoking/smoked 20 years ago presented to hospital with worsening respiratory distress along with chest tightness. Patient denies any wheezing, febrile episodes, worsening cough or worsening productive phlegm with this episode. Denies any known sick contacts. [facility] History Medical History: Reports:: Asthma, Chronic Obstructive Pulmonary Disease (COPD), Diabetes Mellitus Type 2, Home Oxygen, Hyperlipidemia, Hypertension, Osteoporosis, Seizures Denies:: Cancer, Diabetes Mellitus Type 1, MRSA *Have you ever received a pneumonia vaccine?: Yes *Have you received a flu vaccine this season?: Yes Other Medical History: Reports: Arthritis, Cataracts, Glaucoma, Hypothyroidism, Osteoporosis, Thyroid Disease Laterality Cases: Left: Arthroscopy Shoulder, Right: Carpal Tunnel Release Other Surgeries: Yes: No Previous Surgery, Cardiac Catheterization, Colonoscopy Amputation: No Fractures: Yes - *Social History Smoking Status: Former smoker Tobacco Type: cigarettes Alcohol Intake: never Alcohol Intake Frequency:: other Substance Use Type: denies use *Occupational Status:: unemployed Housing: house Household Members: spouse *Travel in the last 8 weeks: None Family Hx:: Coronary Artery Disease, Diabetes, Heart Attack, Hyperlipidemia, Hypertension ROS - Cons Denies fever(s), Denies headache(s) - Eyes Reports blurry vision - ENT Denies bleeding gums - Card Reports chest pain, Reports shortness of breath, Reports shortness of breath with activity - Resp Respiratory: Reports chest congestion, Reports cough, Denies excessive phlegm production, Denies coughing up blood, Denies cough with sputum production, Denies pain with breathing - GI Gastrointestingal: Denies: abdominal pain - Psych Denies thoughts of hurting/killing others, Denies thoughts of hurting/killing yourself Meds Home Medications Medication Instructions Recorded Confirmed Type insulin glargine 100 unit/mL 120 unit SQ DAILY ml 11/20/17 12/26/21 History subcutaneous solution montelukast 10 mg tablet 10 mg PO PM 11/20/17 12/26/21 History oxycodone 10 mg tablet 10 mg PO TIDP PRN 11/20/17 12/26/21 History pantoprazole 40 mg tablet,delayed 40 mg PO DAILY tab 11/20/17 12/25/21 History release potassium chloride 20 mEq 20 meq PO BID tab 06/10/18 12/25/21 History tablet,extended release metoprolol succinate 25 mg 25 mg PO DAILY #30 tab 11/02/21 12/25/21 Rx tablet,extended release 24 hr furosemide 40 mg tablet 40 mg PO DAILY #30 tab 11/21/21 12/25/21 Rx nitroglycerin 0.4 mg sublingual 0.4 mg SUBLINGUAL Q5-15M PRN #25 11/21/21 12/25/21 Rx tablet tab spironolactone 25 mg tablet 25 mg PO DAILY #90 tab 11/22/21 12/25/21 Rx albuterol sulfate 90 mcg/actuation 2 puff INHALATION Q4-6H PRN #8.5 g 12/15/21 12/25/21 Rx aerosol inhaler allopurinol 300 mg tablet 300 mg PO DAILY #90 tab 12/15/21 12/25/21 Rx cetirizine 10 mg tablet 10 mg PO DAILY #90 tab 12/15/21 12/25/21 Rx escitalopram oxalate 10 mg tablet 10 mg PO DAILY tab 12/15/21 12/25/21 History triamcinolone acetonide 0.5 % 1 applic TP BID 12/15/21 12/25/21 History topical cream oxybutynin chloride 15 mg 15 mg PO DAILY #30 tab 12/23/21 12/25/21 Rx tablet,extended release 24 hr ARIPiprazole [Aripiprazole 5mg 5 mg PO DAILY 12/25/21 12/25/21 History Tablet] Insulin Lispro [Humalog Kwikpen 25 unit SQ AC 12/26/21 12/26/21 History U-100] Levothyroxine Sodium 175 mcg PO DAILY 12/26/21 12/26/21 History [Levothyroxine 175mcg (0.175mg) Tab] Pregabalin [Lyrica 100mg Cap] 100 mg PO TID 12/26/21 12/26/21 History Rivaroxaban [Xarelto 15mg tablet] 15 mg PO QPMWITHMEAL 12/26/21 12/26/21 History Tizanidine HCl [Zanaflex 4mg 4 mg PO HSP PRN 12/26/21 12/26/21 History tablet] Topiramate 50 mg PO DAILY 12/26/21 12/26/21 History diazePAM [Diazepam 10
--- NOTE | 2021-12-26 09:58 | HMH.CNCARD ---
History of Present Illness Consult date: 12/26/21 Requesting physician: Mj Allen Consult reason: chest pain, shortness of breath Chief complaint: SOA, chest pain Additional Medical History:: 1. Hypertension 2. Hyperlipidemia 3. Diabetes mellitus, treated for 30 years, insulin requiring 4. History of diastolic congestive heart failure A. Echocardiogram, 06/2020, 1. Technically difficult study, mild biatrial enlargement, normal left ventricular size, mild concentric left ventricular hypertrophy, visually estimated ejection fraction 55% with no regional wall motion abnormality, grade 1 diastolic dysfunction seen without tissue Doppler evidence of raise left atrial pressure. 2. Mildly enlarged right ventricle with normal contractility. 3. Mild mitral and tricuspid regurgitation. 4. No significant pericardial effusion noted. 5. COPD with chronic oxygen therapy and history of asbestos exposure 6. Obesity 7. Sedentary lifestyle 8. History of pulmonary embolus with chronic anticoagulation therapy History of present illness: 66-year-old white male presented to the emergency department for difficulty breathing with some associated chest discomfort. Patient received combination of 4 baby aspirin, breathing treatment and sublingual nitroglycerin with transdermal paste with subsequent resolution of symptoms. Patient is a long-term diabetic with COPD in addition to hypertension and hyperlipidemia. He describes 2 months history of exertional shortness of breath and chest pain that resolves with rest. He just finished 10 days of antibiotic therapy for bronchitis/pneumonia but is still having shortness of breath and chest pain. He was admitted with troponins returning normal x3 overnight. EKG is sinus with borderline voltage criteria for LVH, left axis deviation and possible old anterior TN. No acute ST segment changes are noted. Echocardiogram today shows ejection fraction estimated about 50% with no significant valve disease. Patient was last seen in our office in late 2020 and due to complaints of chest pain and shortness of breath he was slated for left heart catheterization at that time but patient states he chickened out . At this time he is ready to have the procedure if deemed necessary. [facility] History Medical History: Reports:: Asthma, Chronic Obstructive Pulmonary Disease (COPD), Diabetes Mellitus Type 2, Home Oxygen, Hyperlipidemia, Hypertension, Osteoporosis, Seizures Denies:: Cancer, Diabetes Mellitus Type 1, MRSA *Have you ever received a pneumonia vaccine?: Yes *Have you received a flu vaccine this season?: Yes Other Medical History: Reports: Arthritis, Cataracts, Glaucoma, Hypothyroidism, Osteoporosis, Thyroid Disease Laterality Cases: Left: Arthroscopy Shoulder, Right: Carpal Tunnel Release Other Surgeries: Yes: No Previous Surgery, Cardiac Catheterization, Colonoscopy Amputation: No Fractures: Yes - *Social History Smoking Status: Former smoker Tobacco Type: cigarettes Alcohol Intake: never Alcohol Intake Frequency:: other Substance Use Type: denies use *Occupational Status:: unemployed Housing: house Household Members: spouse *Travel in the last 8 weeks: None Family Hx:: Coronary Artery Disease, Diabetes, Heart Attack, Hyperlipidemia, Hypertension Meds Home Medications Medication Instructions Recorded Confirmed Type insulin glargine 100 unit/mL 120 unit SQ DAILY ml 11/20/17 12/26/21 History subcutaneous solution montelukast 10 mg tablet 10 mg PO PM 11/20/17 12/26/21 History oxycodone 10 mg tablet 10 mg PO TIDP PRN 11/20/17 12/26/21 History pantoprazole 40 mg tablet,delayed 40 mg PO DAILY tab 11/20/17 12/25/21 History release potassium chloride 20 mEq 20 meq PO BID tab 06/10/18 12/25/21 History tablet,extended release metoprolol succinate 25 mg 25 mg PO DAILY #30 tab 11/02/21 12/25/21 Rx tablet,extended release 24 hr furosemide 40 mg tablet 40 mg PO DAILY #30 tab 11/21/21
--- NOTE | 2021-12-26 10:19 | IR_ITS ---
APPROVED REPORT Patient Location: Inpatient Make Up Operator Helper: ALVIN Macias RT (R) PROCEDURES Left heart catheterization Left ventriculogram Selective coronary angiogram FFR to the LAD INDICATION Coronary artery disease, Accelerated angina pectoris Informed consent was obtained prior to the procedure. COMPLICATIONS None Estimated Blood Loss: Less than 10 mls TECHNIQUE One percent lidocaine used to anesthetize the right anterior aspect of the wrist. The right radial artery was accessed via the Seldinger technique. A 6 Italian sheath was placed in the right radial artery. 2.5 mg of verapamil, 800 mcg of nitroglycerin, 1mg Lidocaine and 5000 U Heparin were given through the arterial sheath. The papa catheter was also used to perform left heart catheterization, left ventriculogram and selective coronary angiogram. At the end the diagnostic angiogram therapeutic heparin was administered giving a therapeutic ACT and the guide catheter was placed in the left main artery followed by a Choice PT extra-support wire. An nevus FFR catheter was equalized in the left main artery and then advanced to the distal LAD where adenosine was infused. The FFR index dropped to 0.83. Given this did not meet hemodynamic significance the apparatus was removed the sheath was removed good hemostasis was achieved using TR banding patient was transferred to the postop putting in stable condition ANGIOGRAPHIC RESULTS The left main artery Has a distal 20% concentric stenosis The left anterior descending artery Has a proximal hazy 40% stenosis with a mid vessel 20% stenosis The circumflex artery Is nondominant and has mild 10% diffuse luminal irregularities The right coronary artery Is a large dominant vessel with mild mid vessel 10% luminal regularities The JULIAN ventriculogram reveals Normal 65% The left ventricular end-diastolic pressure 20 mmHg FFR index 0.83 in the LAD IMPRESSION Mild to moderate coronary disease as described above Normal ejection fraction Elevated LVEDP PLAN 1. LDL less than 55 to be achieved with high intensity statin 2. Risk factor modification 3. Avoidance of tobacco products 4. Medical management for coronary artery disease 5. Treatment diastolic dysfunction Electronically signed by : Gavin Izaguirre MD 12/26/2021 13:51:27
--- NOTE | 2021-12-26 12:05 | HMH.HP ---
*Admission Date: 12/25/21 *Chief complaint: sob *History of present illness: this patient presented to the ed with progressive sob and episodes of chest pain over the last few days - pt has known ht dis and copd - pt has been compliant with meds -pt will be admitted to be seen by card and pul as sx have been progressive - [facility] History I have reviewed the patient's past medical history: Yes Medical History: Reports:: Asthma, Chronic Obstructive Pulmonary Disease (COPD), Diabetes Mellitus Type 2, Home Oxygen, Hyperlipidemia, Hypertension, Osteoporosis, Seizures Denies:: Cancer, Diabetes Mellitus Type 1, MRSA *Have you ever received a pneumonia vaccine?: Yes *Have you received a flu vaccine this season?: Yes Other Medical History: Reports: Arthritis, Cataracts, Glaucoma, Hypothyroidism, Osteoporosis, Thyroid Disease Laterality Cases: Left: Arthroscopy Shoulder, Right: Carpal Tunnel Release Other Surgeries: Yes: No Previous Surgery, Cardiac Catheterization, Colonoscopy Amputation: No Fractures: Yes - *Social History Smoking Status: Former smoker Tobacco Type: cigarettes Alcohol Intake: never Alcohol Intake Frequency:: other Substance Use Type: denies use *Occupational Status:: unemployed Housing: house Household Members: spouse *Travel in the last 8 weeks: None Family Hx:: Coronary Artery Disease, Diabetes, Heart Attack, Hyperlipidemia, Hypertension Review of Systems - Review of Systems Review of systems:: pertinent systems reviewed and negative unless documented below - Constitutional Denies chills - Eyes Denies change in vision - ENT Denies nasal congestion - *Cardiovascular Reports chest pain at rest, Reports chest pain with activity, Reports shortness of breath - *Respiratory Reports cough, Reports shortness of breath, Reports shortness of breath with activity, Denies coughing up blood - *Gastrointestinal Denies abdominal pain - *Genitourinary Denies blood in urine - *Musculoskeletal Denies joint pain - Integumentary/Breasts Denies rash - *Neurologic Reports weakness, Denies localized weakness, Denies headache(s) Meds Home Medications Medication Instructions Recorded Confirmed Type insulin glargine 100 unit/mL 120 unit SQ DAILY ml 11/20/17 12/26/21 History subcutaneous solution montelukast 10 mg tablet 10 mg PO PM 11/20/17 12/26/21 History oxycodone 10 mg tablet 10 mg PO TIDP PRN 11/20/17 12/26/21 History pantoprazole 40 mg tablet,delayed 40 mg PO DAILY tab 11/20/17 12/25/21 History release potassium chloride 20 mEq 20 meq PO BID tab 06/10/18 12/25/21 History tablet,extended release metoprolol succinate 25 mg 25 mg PO DAILY #30 tab 11/02/21 12/25/21 Rx tablet,extended release 24 hr furosemide 40 mg tablet 40 mg PO DAILY #30 tab 11/21/21 12/25/21 Rx nitroglycerin 0.4 mg sublingual 0.4 mg SUBLINGUAL Q5-15M PRN #25 11/21/21 12/25/21 Rx tablet tab spironolactone 25 mg tablet 25 mg PO DAILY #90 tab 11/22/21 12/25/21 Rx albuterol sulfate 90 mcg/actuation 2 puff INHALATION Q4-6H PRN #8.5 g 12/15/21 12/25/21 Rx aerosol inhaler allopurinol 300 mg tablet 300 mg PO DAILY #90 tab 12/15/21 12/25/21 Rx cetirizine 10 mg tablet 10 mg PO DAILY #90 tab 12/15/21 12/25/21 Rx escitalopram oxalate 10 mg tablet 10 mg PO DAILY tab 12/15/21 12/25/21 History triamcinolone acetonide 0.5 % 1 applic TP BID 12/15/21 12/25/21 History topical cream oxybutynin chloride 15 mg 15 mg PO DAILY #30 tab 12/23/21 12/25/21 Rx tablet,extended release 24 hr ARIPiprazole [Aripiprazole 5mg 5 mg PO DAILY 12/25/21 12/25/21 History Tablet] Insulin Lispro [Humalog Kwikpen 25 unit SQ AC 12/26/21 12/26/21 History U-100] Levothyroxine Sodium 175 mcg PO DAILY 12/26/21 12/26/21 History [Levothyroxine 175mcg (0.175mg) Tab] Pregabalin [Lyrica 100mg Cap] 100 mg PO TID 12/26/21 12/26/21 History Rivaroxaban [Xarelto 15mg tablet] 15 mg PO QPMWITHMEAL 12/26/21 12/26/21 History Tizanidine HCl [Zanaflex 4mg 4 mg
--- NOTE | 2021-12-26 17:42 | PC.NURSE ---
pt is A&OX4. went down for a heart cath today, received no stents. radial band has been removed and dressing applied is CDI. no complaints of pain this shift. has been incontinent of bladder X2 today. 2L of O2 via NC, tolerating well.
[2021-12-26 20:22] LABS: POC Glucose,Bedside 288 (70-110)
[2021-12-26 20:22] LABS: POC Glucose,Bedside 275 (70-110)
[2021-12-27] VITALS: BP 117/52; PULSE 70; PULSE 75; RESP 16; TEMP 36.6; O2SAT 94
[2021-12-27 00:51] LABS: POC Glucose,Bedside 348 (70-110)
[2021-12-27 04:00] VITALS: BP 147/74; PULSE 60; PULSE 66; RESP 17; TEMP 36.6; O2SAT 96
--- NOTE | 2021-12-27 04:02 | PC.NURSE ---
Pt is alert and oriented x4, pt has rested throughout the night. Pt has used urinal independently. Pt has complained of pain 1 time this shift, treated prn per mar. Pt has had no complaints. Pt is on 1L NC with O2 sats >90%. Lung sounds diminished but clear bilaterally. Pt is ACHS FS, pt required coverage. Tele shows NSR.
[2021-12-27 04:51] VITALS: BMI 33.3
[2021-12-27 06:03] LABS: POC Glucose,Bedside 278 (70-110)
[2021-12-27 06:09] VITALS: PULSE 65; PULSE 68; O2SAT 95
--- NOTE | 2021-12-27 07:35 | HMH.PNCARD ---
Subjective Date: 12/27/21 Time: 08:02 Principal diagnosis: CP, SOA Interval history: 66-year-old white male in bed in no acute distress. Denies any chest pain, shortness of breath or chest pressure. Results of echocardiogram and left heart catheterization (noted below) discussed with patient. Echo results: 1. Normal left ventricular size, preserved left ventricular systolic function, estimated ejection fraction 55% with no regional wall motion abnormality, Doppler evidence of impaired LV relaxation seen. 2. Mildly enlarged right ventricle with normal contractility. 3. Trace mitral and tricuspid regurgitation. 4. No significant pericardial effusion. 5. Inferior vena cava is poorly visualized. Electronically signed by : Nasir Aguayo MD 12/26/2021 19:48:02 ANGIOGRAPHIC RESULTS: The left main artery Has a distal 20% concentric stenosis The left anterior descending artery Has a proximal hazy 40% stenosis with a mid vessel 20% stenosis The circumflex artery Is nondominant and has mild 10% diffuse luminal irregularities The right coronary artery Is a large dominant vessel with mild mid vessel 10% luminal regularities The JULIAN ventriculogram reveals Normal 65% The left ventricular end-diastolic pressure 20 mmHg FFR index 0.83 in the LAD IMPRESSION Mild to moderate coronary disease as described above Normal ejection fraction Elevated LVEDP PLAN 1. LDL less than 55 to be achieved with high intensity statin 2. Risk factor modification 3. Avoidance of tobacco products 4. Medical management for coronary artery disease 5. Treatment diastolic dysfunction Electronically signed by : Gavin Izaguirre MD 12/26/2021 13:51:27 Exam Vital signs and Labs for Last 24 Hours: Temp Pulse Resp BP Pulse Ox 97.9 F 65 17 147/74 H 95 12/27/21 04:00 12/27/21 06:09 12/27/21 04:00 12/27/21 04:00 12/27/21 06:09 Laboratory Results - last 24 hr 12/26/21 13:28: POC Glucose 275 H 12/26/21 16:20: POC Glucose 288 H 12/26/21 20:17: POC Glucose 348 H* 12/27/21 05:55: POC Glucose 278 H I & O for Last 24 hours: Intake & Output 12/24/21 12/25/21 12/26/21 12/27/21 11:59 11:59 11:59 11:59 Intake Total 392 / 392 790 / 790 Output Total 700 / 700 1400 / 1400 Balance -308 / -308 -610 / -610 Weight 239 lb 3.2 oz 238 lb - Constitutional no acute distress - *Routine Respiratory Exam Present: CTA bilaterally - *Routine Cardiovascular Exam Present: RRR - *Routine Neurological Exam Present: alert, oriented X3 Progress Note: A&P (1) Chest pain Status: Acute (2) Acute exacerbation of chronic obstructive airways disease Status: Acute (3) Obesity (BMI 30-39.9) Status: Acute (4) Diabetes mellitus Status: Chronic (5) Abnormal EKG Status: Chronic (6) HLD (hyperlipidemia) Status: Chronic (7) HTN (hypertension) Status: Chronic (8) Severe sepsis with acute organ dysfunction Status: Acute (9) Atypical angina Status: Acute Assessment and Plan for All Diagnoses:: 1. Chest pain without ACS. LHC revealed mild to moderate CAD with recommendation for medical therapy. 2. COPD with acute exacerbation, defer to PCP and pulmonary 3. History of pulmonary embolus on chronic rivaroxaban therapy. 4. Hypertension, controlled 5. Hyperlipidemia, not on statin therapy, LDL 106, HDL 40. Will start atorvastatin 40 mg daily. 6. Diabetes mellitus, on insulin therapy, hemoglobin A1c 6.7 Stable from a cardiac standpoint for discharge home. Home medication recommendations: Xarelto 15 mg daily Metoprolol succinate 25 mg daily Lasix 40 mg daily Increase Spironolactone 25 mg to BID New Atorvastatin 40 mg daily Stop Potassium Start ASA 81 mg daily BMP in one week to decide on need for potassium supplementation Follow up in 1 wk
[2021-12-27 08:00] VITALS: BP 147/72; PULSE 80; PULSE 81; RESP 18; TEMP 36.6; O2SAT 98
--- NOTE | 2021-12-27 09:04 | HMH.DCSUM ---
General - General Admission date:: 12/25/21 Discharge date: 12/27/21 HPI HPI: this patient presented to the ed with progressive sob and episodes of chest pain over the last few days - pt has known ht dis and copd - pt has been compliant with meds -pt will be admitted to be seen by card and pul as sx have been progressive - Hospital Course Hospital Course: 66-year-old male patient admitted to [facility] with increasing shortness of breath and chest pain over the last several days, has known heart disease and COPD. He reports taking all medications per instruction Cardiology and pulmonology consulted 12/25/2021 chest x-ray reveals no acute findings 12/26/21 ECHO: Conclusion 1. Normal left ventricular size, preserved left ventricular systolic function, estimated ejection fraction 55% with no regional wall motion abnormality, Doppler evidence of impaired LV relaxation seen. 2. Mildly enlarged right ventricle with normal contractility. 3. Trace mitral and tricuspid regurgitation. 4. No significant pericardial effusion. 5. Inferior vena cava is poorly visualized. Electronically signed by : Nasir Aguayo MD 12/26/2021 cardiac catheterization: ANGIOGRAPHIC RESULTS The left main artery Has a distal 20% concentric stenosis The left anterior descending artery Has a proximal hazy 40% stenosis with a mid vessel 20% stenosis The circumflex artery Is nondominant and has mild 10% diffuse luminal irregularities The right coronary artery Is a large dominant vessel with mild mid vessel 10% luminal regularities The JULIAN ventriculogram reveals Normal 65% The left ventricular end-diastolic pressure 20 mmHg FFR index 0.83 in the LAD IMPRESSION Mild to moderate coronary disease as described above Normal ejection fraction Elevated LVEDP PLAN 1. LDL less than 55 to be achieved with high intensity statin 2. Risk factor modification 3. Avoidance of tobacco products 4. Medical management for coronary artery disease 5. Treatment diastolic dysfunction Electronically signed by : Gavin Izaguirre MD Cardiology has seen and recommends: 1. Chest pain without ACS. LHC revealed mild to moderate CAD with recommendation for medical therapy. 2. COPD with acute exacerbation, defer to PCP and pulmonary 3. History of pulmonary embolus on chronic rivaroxaban therapy. 4. Hypertension, controlled 5. Hyperlipidemia, not on statin therapy, LDL 106, HDL 40. Will start atorvastatin 40 mg daily. 6. Diabetes mellitus, on insulin therapy, hemoglobin A1c 6.7 Stable from a cardiac standpoint for discharge home. Home medication recommendations: Xarelto 15 mg daily Metoprolol succinate 25 mg daily Lasix 40 mg daily Increase Spironolactone 25 mg to BID New Atorvastatin 40 mg daily Stop Potassium Start ASA 81 mg daily BMP in one week to decide on need for potassium supplementation Follow up in 1 wk Pulmonary has seen and recommends: 66-year-old greater than 37-ytpb-tpex smoking history last smoked 20 years ago. On chronic long-term oxygen therapy at 2 L. Patient also carries a diagnosis of sleep apnea however not compliant with his NIV. On home inhaler therapy including Breo along with DuoNeb/albuterol every 6 hours on as-needed basis. Completed vaccination for COVID-19 pneumonia. Present with worsening respiratory distress and chest tightness not associated with fevers cough or productive phlegm. COVID-19 and flu PCR negative. Evidence of leukocytosis. BUN/creatinine within normal limits. Chest x-ray right lower lobe airspace disease/atelectasis. Patient was initiated levofloxacin upon admission. Interval update: Patient respiratory status remained stable on 2 L home long-term oxygen therapy. Continue to receive doxycycline with Advair 250. We will continue home inhaler therapy which appears to be Breo as per the patient. Plan: Doxycycline 100 mg twice daily x5 days for COPD exacerbation Initiate Advair 25
--- NOTE | 2021-12-27 09:23 | DIET.NUTRFU ---
Patient plans to discharge today and follow-up with [facility]. He was told to eat no salt, this RD reviewed handout and reviewed regular meal intake at home. He reports he consumes 3-4 powerade daily each one has 150mg of sodium. Patient has been educated on DM diet in past and used to checking label for sugar content, now he will be watching sodium content also.
--- NOTE | 2021-12-27 09:32 | HMH.PULMPN ---
Internal Medicine - PN: Subj *Date: 12/27/21 *Time: 11:09 Interval history: No acute respiratory events overnight. Continues to remain on nasal cannula. LHC, CAD status post stenting. Exam - Constitutional Constitutional:: Present: no acute distress, comfortable - HENMT Exam HENMT: Present: normocephalic - Eye Exam Eyes:: Present: normal appearance both eyes and related structures - Neck Exam Neck:: Present: normal visual inspection - Respiratory Exam Respiratory:: Present: able to speak in complete sentences, no respiratory distress. Absent: wheezing - Cardiovascular Exam Cardiac:: Present: S1, S2 - GI Exam GI:: Present: soft - Skin Exam Skin: Present: warm, no rash - Neurological Exam Neurological: Present: alert, awake, normal cognition - Extremities Exam Extremities: Present: no cyanosis, no clubbing, no edema Assessment and Plan (1) Chest pain Status: Acute Qualifiers: Qualified Code(s): R07.89 - Other chest pain Category: Medical Code(s): R07.9 - Chest pain, unspecified (2) Acute exacerbation of chronic obstructive airways disease Status: Acute Category: Medical Code(s): J44.1 - Chronic obstructive pulmonary disease with (acute) exacerbation (3) Obesity (BMI 30-39.9) Status: Acute Category: Medical Code(s): E66.9 - Obesity, unspecified (4) Diabetes mellitus Status: Chronic Qualifiers: Qualified Code(s): E11.69 - Type 2 diabetes mellitus with other specified complication Category: Medical Code(s): E11.9 - Type 2 diabetes mellitus without complications (5) Abnormal EKG Status: Chronic Category: Medical Code(s): R94.31 - Abnormal electrocardiogram [ECG] [EKG] (6) HLD (hyperlipidemia) Status: Chronic Qualifiers: Qualified Code(s): E78.49 - Other hyperlipidemia Category: Medical Code(s): E78.5 - Hyperlipidemia, unspecified (7) HTN (hypertension) Status: Chronic Category: Medical Code(s): I10 - Essential (primary) hypertension (8) Severe sepsis with acute organ dysfunction Status: Acute Category: Medical Code(s): A41.9 - Sepsis, unspecified organism; R65.20 - Severe sepsis without septic shock (9) Atypical angina Status: Acute Category: Medical Code(s): I20.8 - Other forms of angina pectoris - Assessment and plan all Dx Assessment and Plan for all problems:: #COPD exacerbation: 66-year-old greater than 48-kwbe-ctrd smoking history last smoked 20 years ago. On chronic long-term oxygen therapy at 2 L. Patient also carries a diagnosis of sleep apnea however not compliant with his NIV. On home inhaler therapy including Breo along with DuoNeb/albuterol every 6 hours on as-needed basis. Completed vaccination for COVID-19 pneumonia. Present with worsening respiratory distress and chest tightness not associated with fevers cough or productive phlegm. COVID-19 and flu PCR negative. Evidence of leukocytosis. BUN/creatinine within normal limits. Chest x-ray right lower lobe airspace disease/atelectasis. Patient was initiated levofloxacin upon admission. Interval update: Patient respiratory status remained stable on 2 L home long-term oxygen therapy. Continue to receive doxycycline with Advair 250. We will continue home inhaler therapy which appears to be Breo as per the patient. C status post CAD and stenting. Plan: Doxycycline 100 mg twice daily x5 days for COPD exacerbation Advair 250 twice daily along with DuoNebs every 6 hours on as-needed basis Incentive spirometry #Thank for involving pulmonary in this patient care. We will follow the patient in pulmonary clinic in 4 to 6 weeks to full PFT 6-minute walk testing and nocturnal oximetry testing.
--- NOTE | 2021-12-27 11:17 | HMH.PTEV ---
Physical Therapy Evaluation Rehab PT IP Evaluation Start: 12/27/21 08:28 Freq: ONCE Status: Active Protocol: Document 12/27/21 11:06 CECY (Rec: 12/27/21 11:17 CECY [id number]) Subjective/History History History this patient presented to the ed with progressive sob and episodes of chest pain over the last few days - pt has known ht dis and copd Subjective Subjective Pt reports he is feeling good. Wishes to sit in chair. Rehab PT IP Eval Objective Appearance Patient Behavior Appropriate,Cooperative Patient Orientation Name,Birthday,Year,Situation Difficulty following instructions none Speech Pattern Clear,Appropriate Ambulation Patient Able to Ambulate Yes Ambulation Observation IP General Gait Pattern Observation Wide Based Gait Ambulation Distance (feet) 100 Ambulation Assistive Device None Ambulation Ability Supervision/Stand by,Contact Guard/Hand Hold Balance Ability to Arise Able, uses arms to help Sitting Balance Steady, safe Standing Balance Steady, wide stance Dynamic Sitting Balance Ability Good Dynamic Standing Balance Ability Good Transfers Bed Transfer Ability Independent Chair Transfer Ability Independent Sit to Stand Bed Transfer Ability Independent Sit to Stand Chair Transfer Ability Independent Rehab PT IP prob,goals,plan Problems Date of Evaluation: 12/27/21 Rehab Potential Rehab Potential Innapropriate for Skilled Therapy Discharge Plan PT Discharge Plan Pt at very functional baseline - has all appropriate and needed AD's at home w/ supervison. Pt does not require skilled therapy at this time - pt to dc home once medically stable G -code Required No PHYSICIAN CERTIFICATION: I certify the specified therapy services for Adeel Deweynata YO are required, authorized, and reviewed every 30 days.
[2021-12-27 12:00] VITALS: BP 164/75; PULSE 95; RESP 18; TEMP 37; O2SAT 95
[2021-12-27 18:47] LABS: POC Glucose,Bedside 327 (70-110)
--- NOTE | 2021-12-28 11:46 | CARE MANAGER ---
Spoke with patient's daughter who states patient is doing well. Picked up his meds without any issues and is aware of doctors' appointments. ANGELLA Barney
--- NOTE | 2021-12-28 13:22 | DIET.NUTRFU ---
Spoke to patient today to reviewed cardiac and diabetic diet recommendations. Patient was just here at facility but left to early to see for dietitian. He has PMH of cardiac and diabetic diet, will mail handout so can review. also wanted to review discharge plan notes, did then also- provided wanted potassium stopped until follow-up apt and new labs are drawn.
== END 2021-12-27 12:33 | disposition home or self-care (01) ==
LOC: ER 21:31 → 2ND 22:51
PROVIDERS: Internal Medicine; Admitting Provider Emergency Medicine; Emergency Provider Emergency Medicine; PCP Family Medicine; Visit Provider Family Medicine
DX: J44.1 Chronic obstructive pulmonary disease with (acute) exacerbation (principal); E11.22 Type 2 diabetes mellitus with diabetic chronic kidney disease; E78.5 Hyperlipidemia, unspecified; I13.0 Hypertensive heart and chronic kidney disease with heart failure and stage 1 through stage 4 chronic kidney disease, or unspecified chronic kidney disease; I25.118 Atherosclerotic heart disease of native coronary artery with other forms of angina pectoris; I50.22 Chronic systolic (congestive) heart failure; N18.2 Chronic kidney disease, stage 2 (mild); R06.02 Shortness of breath; R60.9 Edema, unspecified; R94.31 Abnormal electrocardiogram [ECG] [EKG]; Z79.4 Long term (current) use of insulin; Z79.01 Long term (current) use of anticoagulants; Z99.81 Dependence on supplemental oxygen; Z87.891 Personal history of nicotine dependence
CPT/HCPCS: 36415; 71046; 80048; 80053; 80061; 82962; 83036; 83605; 83735; 83880; 84436; 84443; 84484; 85025; 87040; 93005; 93306; 93458; 93571; 94640; 99152; 99285; C1725; C1769; C9803; G0378; J0153; J1644; J1956; Q9967; U0003; U0005

== ENCOUNTER → 2022-01-03 07:15 | Outpatient (CLI) | payer MEDICAID, SELFPAY ==
[2022-01-03 08:25] VITALS: PULSE 86; PULSE 90
== END ==
PROVIDERS: PCP Family Medicine; Visit Provider Internal Medicine Pulmonary Disease
DX: J44.1 Chronic obstructive pulmonary disease with (acute) exacerbation (principal)
CPT/HCPCS: 94060; 94640; 94727; 94729

== ENCOUNTER → 2022-01-05 09:35 | Outpatient (CLI) | payer MEDICAID, SELFPAY ==
--- NOTE | 2022-01-05 10:12 | CA_ITS ---
FINAL REPORT CLINICAL HISTORY: PT HAD CATH 12/06/21 WITH RT WRIST ACCESS,C/O PAIN AND RT HAND SWELLING, PT ON XARELTO FINDINGS: Spectral and Doppler waveform evaluations of the right wrist was performed. Spectral analysis was performed. There is no evidence of pseudoaneurysm. IMPRESSION: No evidence of pseudoaneurysm. Reviewed, Interpreted and Dictated by Doug Pham III, MD Transcribed by Valerie Hill Authenticated and [facility]
[2022-01-05 10:15] LABS: Basophils # 0.1 K/mm3 (0-0.2); Basophils % 1.5 % (0.1-2.0); Eosinophils # 0.2 K/mm3 (0.0-0.4); Eosinophils % 1.9 % (0.1-12.0); Hematocrit 50.8 % (42.0-52.0); Hemoglobin 16.4 g/dL (14.1-18.0); Lymphocytes # 2.6 K/mm3 (0.7-4.5); Lymphocytes % 29.8 % (10-50); Mean Corpuscular HGB Conc 32.2 g/dL (31.8-35.4); Mean Corpuscular Hemoglobin 31.5 pg (27.0-31.2); Mean Corpuscular Volume 97.7 fl (80-94); Mean Platelet Volume 9.7 fl (7.4-10.4); Monocytes # 0.6 K/mm3 (0.1-1.0); Monocytes % 6.5 % (1.7-9.3); Neutrophils # 5.3 K/mm3 (1.8-7.8); Neutrophils % 60.2 % (37.0-80.0); Platelet Count 234 K/mm3 (142-424); Red Cell Distribution Width 13.4 % (11.5-17.5); White Blood Count 8.8 K/mm3 (4.8-10.8)
[2022-01-05 10:54] LABS: Alanine Aminotransferase 52 U/L (12-78); Albumin Level 4.4 g/dl (3.5-5.0); Albumin/Globulin Ratio 1.6 (1.1-1.8); Alkaline Phosphatase 123 U/L (38-126); Anion Gap 11.2 mEq/L (5-15); Aspartate Amino Transferase 50 U/L (17-59); Bilirubin,Total 0.2 mg/dl (0.2-1.3); Blood Urea Nitrogen 15 mg/dl (9-20); Calcium 10.3 mg/dl (8.4-10.2); Carbon Dioxide 31 mmol/L (22.0-30.0); Chloride 100 mmol/L (98-107); Estimated Glomerular Filt Rate 67 ml/min (>60); GFR (African American) 82 ML/MIN (>60); Globulin 2.8 g/dL (1.3-3.2); Glucose 188 mg/dl (74-100); Potassium 4.2 mmoL/L (3.5-5.1); Sodium 138 mmol/L (136-145); Total Protein,Serum 7.2 g/dl (6.3-8.2)
[2022-01-05 11:37] LABS: Iron 104 ug/dL (49-181)
[2022-01-05 11:46] LABS: Total Iron Binding Capacity 358 ug/dL (261-462)
[2022-01-12 09:17] LABS: 1,25 Dihydroxy Vitamin D 38 pg/mL (.); 1,25-Dihydroxy, Vitamin D-2 <10 pg/mL (.); 1,25-Dihydroxy, Vitamin D-3 38 pg/mL (.)
== END ==
PROVIDERS: PCP Family Medicine; Visit Provider Physician Assistant
DX: M79.601 Pain in right arm (principal); Z76.89 Persons encountering health services in other specified circumstances; E78.49 Other hyperlipidemia; I11.0 Hypertensive heart disease with heart failure; I50.22 Chronic systolic (congestive) heart failure; N18.2 Chronic kidney disease, stage 2 (mild); R60.9 Edema, unspecified
CPT/HCPCS: 36415; 80053; 82652; 83540; 83550; 85025; 93931

== ENCOUNTER → 2022-07-25 07:45 | Outpatient (CLI) | payer MEDICARE, OTHER, MEDICAID, SELFPAY ==
--- NOTE | 2022-07-25 08:03 | XR_ITS ---
FINAL REPORT CLINICAL HISTORY: hand pain, inability to extend fingers, ?neuropathy patient is unable to extend fingers, tech attempted to straighten but it is too painful for patient , best images due to patient condition. FINDINGS: 3 views of the right hand were obtained. There is no acute fracture or dislocation. Flexion deformity of the 2nd through 5th digits is worst involving the 5th digit. There is chronic deformity of the 5th proximal phalanx consistent with a prior fracture. There are mild degenerative changes. IMPRESSION: Mild degenerative changes. Reviewed, Interpreted and Dictated by Doug Pham III, MD Transcribed by Cory Lopez Authenticated and . [facility]
--- NOTE | 2022-07-25 08:03 | XR_ITS ---
FINAL REPORT CLINICAL HISTORY: hand pain hand pain, inability to extend fingers, ?neuropathy patient is unable to extend fingers, tech attempted to straighten but it is too painful for patient , best images due to patient condition. FINDINGS: 3 views of the left hand were obtained. There is no acute fracture or dislocation. There is flexion deformity of the 2nd through 5th digits. There are mild degenerative changes. IMPRESSION: Mild degenerative change. Reviewed, Interpreted and Dictated by Doug Pham III, MD Transcribed by Cory Lopez Authenticated and . [facility]
== END ==
PROVIDERS: PCP Family Medicine; Visit Provider Orthopaedic Surgery
DX: M79.641 Pain in right hand (principal); M79.642 Pain in left hand
CPT/HCPCS: 73130

== ENCOUNTER 2022-08-25 12:27 | Emergency (ER) | payer MEDICARE, OTHER, MEDICAID, SELFPAY ==
[2022-08-25 12:37] VITALS: BP 109/80; PULSE 89; RESP 16; TEMP 36.6; O2SAT 96; BMI 31.2
--- NOTE | 2022-08-25 12:40 | PC.NURSE ---
Indwelling latham placed due to unable to void since time of fall. 1300ml output. Decreased sensation to RLE. +pedal pulses. notified.
--- NOTE | 2022-08-25 12:51 | HMH.EDGENADL ---
Discharge Plan Disposition Chief Complaint: Fall Prescriptions Prescriptions: No Action montelukast 10 mg tablet 10 mg PO PM pantoprazole 40 mg tablet,delayed release (DR/EC) 40 mg PO DAILY oxycodone 10 mg tablet 10 mg PO TIDP PRN (Reason: Moderate Pain) insulin glargine [Lantus U-100 Insulin] 100 unit/mL solution 80 unit SQ DAILY diazepam 10 mg tablet 5 mg PO TIDP PRN (Reason: Tremors) Qty: 45 5RF oxybutynin chloride 15 mg tablet extended release 24hr 15 mg PO DAILY Qty: 90 3RF potassium chloride 20 mEq tablet extended release 20 meq PO DAILY Label Comments: TAKE 1 TABLET BY MOUTH TWICE DAILY escitalopram oxalate 10 mg tablet 10 mg PO DAILY Label Comments: TAKE 1 TABLET BY MOUTH EVERY DAY cetirizine 10 mg tablet 10 mg PO DAILY Qty: 90 3RF allopurinol 300 mg tablet 300 mg PO DAILY Qty: 90 3RF Ozempic 0.25 mg or 0.5 mg(2 mg/1.5 mL) pen injector 0.5 mg SQ WEEKLY isosorbide mononitrate 60 mg tablet extended release 24 hr 60 mg PO DAILY Qty: 30 2RF atorvastatin 40 mg tablet 40 mg PO HS Qty: 90 3RF furosemide 40 mg tablet 40 mg PO DAILY Qty: 30 5RF metoprolol succinate [Toprol XL] 25 mg tablet extended release 24 hr 25 mg PO DAILY Qty: 30 3RF rivaroxaban 15 mg tablet 15 mg PO QPMWITHMEAL Qty: 30 5RF spironolactone 25 mg tablet 25 mg PO BID Qty: 180 3RF tizanidine 4 mg tablet 4 mg PO HSP PRN (Reason: Muscle Spasm) Qty: 90 3RF topiramate [Topamax] 25 mg tablet 25 mg PO DAILY Qty: 90 3RF nitroglycerin 0.4 mg tablet, sublingual 0.4 mg SL Q5-15M PRN (Reason: chest pain) Qty: 25 0RF triamcinolone acetonide 0.5 % cream 1 applic TP BID Qty: 15 0RF aspirin 81 mg tablet,chewable 81 mg PO DAILY 30 Days Qty: 30 0RF topiramate 50 mg tablet 50 mg PO DAILY Qty: 90 0RF albuterol sulfate [Ventolin HFA] 90 mcg/actuation HFA aerosol inhaler 2 puff IH Q4-6H PRN (Reason: shortness of breath or wheezing) Qty: 8.5 10RF aripiprazole 5 MG tablet 5 mg PO DAILY levothyroxine 175 MCG tablet 175 mcg PO DAILY insulin lispro 100 UNIT/ML insulin pen 25 unit SQ AC pregabalin 100 MG capsule 100 mg PO TID Referrals Follow up/Referrals: Provider,Referral, [Referring] - See instructions Discharge ED Provider: Karla Mascorro General Adult HPI General Chief complaint: Fall Stated complaint: fall Time Seen by Provider: 08/25/22 12:51 Mode of Arrival: EMS Source of Information: EMS Limitations: Physical Limitations Description of Symptoms (Recalled from ER Triage Doc. by RN): Presents via POV d/t fall last night secondary to dizziness at approx. 9pm. Pt states he landed on his right hip on the hard wood floor. Denies head injury. Neg. LOC. +Blood thinners (unknown). Denies hx of back/hip injury/surgies. Pt further reports decreased senstation to RLE and unable to void since the fall. History of Present Illness HPI narrative: Patient is a 67-year-old man who was dizzy last night and had a mechanical fall secondary to his dizziness. States that he did not lose consciousness has not been dizzy before or after that. He fell directly onto his bottom and had immediate lower back pain and associated right lower extremity numbness and weakness and urinary retention. Patient states his numbness goes down the medial aspect and saddle area of his right lower extremity extending all the way down to his foot he is having difficulty with dorsiflexion of the lower extremity as well as extension at the hip. Been unable to walk since this happened. Happened at 9 PM yesterday evening on the . Denies any cervical spine pain or thoracic pain denies any chest abdomen pelvis or other long bone pain. He does state however that he has right hip pain associate with this fall Related Data Home Medications Medication Instructions Recorded Confirmed montelukast 10 mg tablet 10 mg PO PM Al
[2022-08-25 12:56] VITALS: BP 101/69; PULSE 86; O2SAT 96
--- NOTE | 2022-08-25 12:57 | CT_ITS ---
FINAL REPORT TECHNIQUE: Axial images were performed through the lumbar spine by computed tomography. Sagittal reconstruction images were also performed. This study was performed with techniques to keep radiation doses as low as reasonably achievable, (ALARA). Individualized dose reduction techniques using automated exposure control or adjustment of mA and/or kV according to the patient''s size were employed. CLINICAL HISTORY: fall, Lower T/L pain, RLE weakness, saddle anesth FINDINGS: There is mild anterior osteophyte formation, most evident at L1-2 and L3-4. The vertebral body demonstrates normal height. There is no malalignment. L1-2: No significant disc bulge or protrusion. L2-3: Mild diffuse disc bulge is present with mild bilateral neural foraminal narrowing. L3-4: Mild diffuse disc bulge is present with mild bilateral neural foraminal narrowing. L4-5: Moderate diffuse disc bulge and endplate hypertrophy are present. There is mild to moderate right and mild left neural foraminal narrowing. L5-S1: No significant disc bulge or protrusion. IMPRESSION: Hypertrophic changes of degenerative disc disease, most evident at L4-5 where there is mild to moderate right neural foraminal narrowing. Reviewed, Interpreted and Dictated by Ryland Vargas MD Transcribed by Valerie Hill Authenticated and [facility]
--- NOTE | 2022-08-25 12:57 | CT_ITS ---
FINAL REPORT TECHNIQUE: Axial images through the pelvis were performed by computed tomography. Sagittal and coronal reformatted images were obtained and reviewed. This study was performed with techniques to keep radiation doses as low as reasonably achievable (ALARA). Individualized dose reduction techniques using automated exposure control or adjustment of mA and/or kV according to the patient's size were employed. CLINICAL HISTORY: fall, Lower T/L pain, RLE weakness, saddle anesth FINDINGS: Rodriguez balloon catheter is seen within a decompressed urinary bladder. No acute fracture is identified. There is moderate right hip joint space narrowing with subchondral sclerosis. There is avascular necrosis of the right femoral head. There is indentation at the anterior surface of the right femoral head. There is mild left hip joint space narrowing. IMPRESSION: Moderate to advanced osteoarthritis of the right hip with underlying avascular necrosis of the right femoral head. Reviewed, Interpreted and Dictated by Ryland Vargas MD Transcribed by Valerie Hill Authenticated and . [facility]
--- NOTE | 2022-08-25 12:57 | CT_ITS ---
FINAL REPORT TECHNIQUE: Axial images through the thoracic spine were performed. Sagittal reconstruction images were performed. This study was performed with techniques to keep radiation doses as low as reasonably achievable, (ALARA). Individualized dose reduction techniques using automated exposure control or adjustment of mA and/or kV according to the patient's size were employed. CLINICAL HISTORY: fall, Lower T/L pain, RLE weakness, saddle anesth FINDINGS: There is moderate anterior osteophyte formation in the mid and lower thoracic spine. There is mild loss of height of T7 and T8, probably chronic. At the T6-7 level is an unusual calcification in the anterior aspect of the spinal canal. Finding is best seen on image 84 of series 1002 and image 89 of series 7. There is mild spinal canal compromise. IMPRESSION: Moderate changes of degenerative disc disease. Unusual calcification at T6-7, may be related to a calcified partially extruded disc. Please correlate with any radicular symptoms. Reviewed, Interpreted and Dictated by Ryland Vargas MD Transcribed by Valerie Hill Authenticated and [facility]
[2022-08-25 13:00] VITALS: BP 102/67; PULSE 97; O2SAT 95
[2022-08-25 13:00] LABS: Coronavirus 19, PCR Not Detected (NotDetected); Influenza A, PCR Not Detected (NotDetected); Influenza B, PCR Not Detected (NotDetected)
[2022-08-25 13:17] LABS: Basophils # 0.1 K/mm3 (0-0.2); Basophils % 0.8 % (0.1-2.0); Eosinophils # 0.2 K/mm3 (0.0-0.4); Eosinophils % 1.5 % (0.1-12.0); Hematocrit 45.2 % (42.0-52.0); Hemoglobin 15.2 g/dL (14.1-18.0); Lymphocytes # 2.3 K/mm3 (0.7-4.5); Lymphocytes % 21.8 % (10-50); Mean Corpuscular HGB Conc 33.7 g/dL (31.8-35.4); Mean Corpuscular Hemoglobin 31.6 pg (27.0-31.2); Mean Corpuscular Volume 93.8 fl (80-94); Mean Platelet Volume 10.2 fl (7.4-10.4); Monocytes # 0.7 K/mm3 (0.1-1.0); Monocytes % 6.8 % (1.7-9.3); Neutrophils # 7.2 K/mm3 (1.8-7.8); Neutrophils % 68.9 % (37.0-80.0); Platelet Count 226 K/mm3 (142-424); Red Blood Count 4.81 M/mm3 (4.60-6.20); Red Cell Distribution Width 14.3 % (11.5-17.5); White Blood Count 10.4 K/mm3 (4.8-10.8)
[2022-08-25 13:18] LABS: Alanine Aminotransferase 23 U/L (12-78); Albumin Level 4.2 g/dl (3.5-5.0); Albumin/Globulin Ratio 1.4 (1.1-1.8); Alkaline Phosphatase 87 U/L (38-126); Anion Gap 11.6 mEq/L (5-15); Aspartate Amino Transferase 39 U/L (17-59); Bilirubin,Total 1.1 mg/dl (0.2-1.3); Blood Urea Nitrogen 16 mg/dl (9-20); Calcium 8.9 mg/dl (8.4-10.2); Carbon Dioxide 29 mmol/L (22.0-30.0); Chloride 98 mmol/L (98-107); Creatinine Clearance Estimated 88 mL/min (50-200); Estimated Glomerular Filt Rate 61 ml/min (>60); GFR (African American) 74 ML/MIN (>60); Glucose 140 mg/dl (74-100); Potassium 4.6 mmoL/L (3.5-5.1); Sodium 134 mmol/L (136-145); Total Protein,Serum 7.2 g/dl (6.3-8.2)
[2022-08-25 13:24] LABS: Activated Partial Thrombo Time 36.9 seconds (22.8-30.6); INR 1.24 (0.9-1.1); Prothrombin Time 13.2 seconds (10.1-12.5)
[2022-08-25 13:30] VITALS: BP 111/68; PULSE 86; O2SAT 90
--- NOTE | 2022-08-25 13:33 | PC.NURSE ---
calling [facility] to speak to a doctor dairy nutrition consultant for traumatic cuda equina diagnosis.
[2022-08-25 14:00] VITALS: BP 110/63; PULSE 80; RESP 16; O2SAT 94
--- NOTE | 2022-08-25 14:19 | PC.NURSE ---
calling [facility] to get and update health promotion specialist back for pt
--- NOTE | 2022-08-25 14:27 | PC.NURSE ---
Dr Mascorro speaking with [facility]
--- NOTE | 2022-08-25 14:30 | PC.NURSE ---
stated they would not accept the transfer until an MRI has been done
--- NOTE | 2022-08-25 14:33 | PC.NURSE ---
called MRI to see if we could get one [facility] said they wouldn't be able to do it until after 16:45 but was calling to speak to there boss before a definite yes.. [facility] will not except pt for transfer without MRI
--- NOTE | 2022-08-25 14:40 | PC.NURSE ---
calling [facility] to see possible transfer
--- NOTE | 2022-08-25 14:42 | PC.NURSE ---
Holding to speak to a Vic surgeon at [facility]
--- NOTE | 2022-08-25 14:46 | PC.NURSE ---
christian hinkle speaking to dr. obrien @ [facility]
--- NOTE | 2022-08-25 14:54 | PC.NURSE ---
weather check for [employer]. declined transport due to weather at this time
--- NOTE | 2022-08-25 14:54 | PC.NURSE ---
call [facility] for possible transfer
--- NOTE | 2022-08-25 14:58 | PC.NURSE ---
er speaking to trauma md
--- NOTE | 2022-08-25 15:02 | PC.NURSE ---
pt accepted to by Dr. Triplett
--- NOTE | 2022-08-25 15:09 | PC.NURSE ---
[facility] called regarding pt transfer
--- NOTE | 2022-08-25 15:18 | PC.NURSE ---
Report provided to hSakira PERALES
--- NOTE | 2022-08-25 15:32 | PC.NURSE ---
Patient updated on plan of car; transfer to . EMS enroute. Indwelling latham emptied; 700 ml output. Personal belongings placed in bag and labeled.
[2022-08-25 15:56] VITALS: BP 115/65; PULSE 78; RESP 13; TEMP 36.6; O2SAT 98
--- NOTE | 2022-08-25 16:02 | PC.NURSE ---
13:[address] with (2) polly cm, RN, and Tech to assist with transfer maintaining spinal alignment. MD notified of further decrease in sensation of RLE and minimal movement.
== END 2022-08-25 16:01 | disposition other institution (70) ==
PROVIDERS: Emergency Provider Student in an Organized Health Care Education/Training Program; PCP Family Medicine
DX: R20.0 Anesthesia of skin (principal); R33.9 Retention of urine, unspecified; G83.4 Cauda equina syndrome; M62.81 Muscle weakness (generalized)
CPT/HCPCS: 72128; 72131; 72192; 80053; 85025; 85610; 85730; 96361; 96374; 96376; 99291; C9803; U0003; U0005

== ENCOUNTER → 2023-01-23 10:07 | Outpatient (CLI) | payer MEDICARE, OTHER, MEDICAID, SELFPAY ==
[2023-01-23 10:44] LABS: Basophils # 0.1 K/mm3 (0-0.2); Basophils % 0.4 % (0.1-2.0); Eosinophils # 0.1 K/mm3 (0.0-0.4); Eosinophils % 0.9 % (0.1-12.0); Hematocrit 52.4 % (42.0-52.0); Hemoglobin 17.2 g/dL (14.1-18.0); Lymphocytes # 2.2 K/mm3 (0.7-4.5); Mean Corpuscular HGB Conc 32.8 g/dL (31.8-35.4); Mean Corpuscular Volume 91.6 fl (80-94); Monocytes # 0.6 K/mm3 (0.1-1.0); Monocytes % 4.8 % (1.7-9.3); Neutrophils # 8.8 K/mm3 (1.8-7.8); Neutrophils % 74.9 % (37.0-80.0); Platelet Count 206 K/mm3 (142-424); Red Blood Count 5.72 M/mm3 (4.60-6.20); Red Cell Distribution Width 15.7 % (11.5-17.5); White Blood Count 11.7 K/mm3 (4.8-10.8)
[2023-01-23 11:20] LABS: Chloride 103 mmol/L (98-107); Potassium 4.3 mmoL/L (3.5-5.1); Sodium 140 mmol/L (136-145)
[2023-01-23 11:23] LABS: Alanine Aminotransferase 27 U/L (12-78); Albumin Level 4.3 g/dl (3.5-5.0); Alkaline Phosphatase 128 U/L (38-126); Anion Gap 14.3 mEq/L (5-15); Aspartate Amino Transferase 31 U/L (17-59); Bilirubin,Direct 0.3 mg/dl (0.0-0.4); Bilirubin,Indirect 0.4 mg/dL (0.0-0.9); Bilirubin,Total 0.7 mg/dl (0.2-1.3); Bilirubin,Unconjugated 0.4 mg/dL (0.0-1.1); Blood Urea Nitrogen 11 mg/dl (9-20); Calcium 9.6 mg/dl (8.4-10.2); Carbon Dioxide 27 mmol/L (22.0-30.0); Chol/HDL Ratio 3.6 (1-3.5); Cholesterol 139 mg/dl (140-200); Estimated Glomerular Filt Rate 75 ml/min (>60); GFR (African American) 91 ML/MIN (>60); Glucose 152 mg/dl (74-100); HDL Cholesterol 39 mg/dl (40-60); Total Protein,Serum 7.6 g/dl (6.3-8.2); Triglycerides 108 mg/dl (30-150); VLDL Cholesterol 22 mg/dL (0-40)
[2023-01-23 11:34] LABS: Direct LDL Cholesterol 78.62 mg/dL (100-129)
[2023-01-23 11:41] LABS: Free T4 (Free Thyroxine) 0.99 ng/dl (0.78-2.19)
[2023-01-23 11:54] LABS: Thyroid Stimulating Hormone 1.13 uIU/mL (0.465-4.68)
== END ==
PROVIDERS: PCP Family Medicine; Visit Provider Physician Assistant
DX: E11.9 Type 2 diabetes mellitus without complications (principal); E78.5 Hyperlipidemia, unspecified; I25.10 Atherosclerotic heart disease of native coronary artery without angina pectoris; I50.22 Chronic systolic (congestive) heart failure; J44.9 Chronic obstructive pulmonary disease, unspecified; R06.02 Shortness of breath; R07.9 Chest pain, unspecified; R94.31 Abnormal electrocardiogram [ECG] [EKG]; I11.0 Hypertensive heart disease with heart failure; Z79.4 Long term (current) use of insulin
CPT/HCPCS: 36415; 80048; 80061; 80076; 84439; 84443; 85025

== ENCOUNTER 2023-03-29 00:41 | Observation (INO) | payer MEDICARE, OTHER, SELFPAY ==
[2023-03-29] VITALS (11 sets, daily range): BP systolic 114–139; BP diastolic 68–89; PULSE 77–118; RESP 13–19; TEMP 36.5–37; O2SAT 91–95; BMI 30.7; BMI 32.3
--- NOTE | 2023-03-29 00:44 | ECG_ITS ---
APPROVED REPORT Exam: Resting ECG HR:118 bpm ECG Measurements Heart Rate 118 AXES AK 164 P 34 QRSd 88 QRS -50 QT 314 T 52 QTc 384 Conclusion SINUS TACHYCARDIA INDETERMINATE AXIS LEFT ANTERIOR FASCICULAR BLOCK [QRS AXIS <= -45, QR IN I, RS IN II] MODERATE VOLTAGE CRITERIA FOR LVH, CONSIDER NORMAL VARIANT [MEETS CRITERIA IN ONE OF: R(aVL), S(V1), R(V5), R(V5/V6)+S(V1)] POSSIBLE ANTERIOR MYOCARDIAL INFARCTION , OF INDETERMINATE AGE [30 ms Q WAVE IN V3/V4, OR R < 0.2 mV IN V4] ABNORMAL ECG UNCONFIRMED REPORT Electronically signed by : Clifton Kulkarni MD 03/29/2023 21:26:42
--- NOTE | 2023-03-29 00:47 | HMH.EDGENADL ---
Discharge Plan Disposition Patient Disposition: Admitted Condition: Good Chief Complaint: Chest Pain Prescriptions Prescriptions: No Action montelukast 10 mg tablet 10 mg PO PM insulin glargine [Basaglar KwikPen U-100 Insulin] 100 unit/mL (3 mL) insulin pen SQ azithromycin [Zithromax Z-Esequiel] 250 mg tablet See Rx Instructions PO .COMPLEX Qty: 6 0RF Rx Instructions: For 250 mg dose pack: take 500 mg today (day 1), then 250 mg for 4 days (days 2-5) PO diazepam 5 mg tablet 5 mg PO TID Qty: 90 2RF cetirizine 10 mg tablet 10 mg PO DAILY Qty: 90 3RF atorvastatin 40 mg tablet 40 mg PO HS Qty: 90 3RF metoprolol succinate [Toprol XL] 25 mg tablet extended release 24 hr 25 mg PO DAILY Qty: 30 3RF spironolactone 25 mg tablet 25 mg PO BID Qty: 180 3RF tizanidine 4 mg tablet 4 mg PO HSP PRN (Reason: Muscle Spasm) Qty: 90 3RF oxycodone-acetaminophen 10-325 mg tablet 1 tab PO TID PRN Patient Comments: TAKE 1 TABLET BY MOUTH THREE TIMES DAILY NEEDED Ozempic 1 mg/dose (4 mg/3 mL) pen injector 1 mg SQ WEEKLY Patient Comments: INJECT 1MG UNDER THE SKIN 1 TIME A WEEK nitroglycerin 0.4 mg tablet, sublingual 0.4 mg SL Q5-15M PRN (Reason: chest pain) Qty: 25 0RF triamcinolone acetonide 0.5 % cream 1 applic TP BID Qty: 15 0RF aspirin 81 mg tablet,chewable 81 mg PO DAILY 30 Days Qty: 30 0RF isosorbide mononitrate 60 mg tablet extended release 24 hr 60 mg PO DAILY Qty: 90 3RF escitalopram oxalate 10 mg tablet 10 mg PO DAILY Qty: 90 1RF furosemide 40 mg tablet 40 mg PO DAILY Qty: 30 5RF topiramate [Topamax] 25 mg tablet 25 mg PO DAILY Qty: 90 3RF albuterol sulfate [Ventolin HFA] 90 mcg/actuation HFA aerosol inhaler 2 puff IH Q4-6H PRN (Reason: shortness of breath or wheezing) Qty: 8.5 10RF aripiprazole 5 mg tablet See Rx Instructions .ROUTE .COMPLEX Qty: 90 0RF Dose Instruction: TAKE 1 TABLET BY MOUTH DAILY FOR MOOD Rx Instructions: TAKE 1 TABLET BY MOUTH DAILY FOR MOOD allopurinol 300 mg tablet 300 mg PO DAILY Qty: 90 3RF pantoprazole 40 mg tablet,delayed release (DR/EC) See Rx Instructions .ROUTE .COMPLEX Qty: 90 0RF Dose Instruction: TAKE 1 TABLET BY MOUTH DAILY FOR GERD Rx Instructions: TAKE 1 TABLET BY MOUTH DAILY FOR GERD rivaroxaban 15 mg tablet 15 mg PO QPMWITHMEAL Qty: 30 5RF potassium chloride 20 mEq tablet extended release 20 meq PO DAILY Qty: 30 5RF oxybutynin chloride 15 mg tablet extended release 24hr 15 mg PO DAILY Qty: 90 3RF topiramate 50 mg tablet 50 mg PO DAILY Qty: 90 0RF levothyroxine 175 MCG tablet 175 mcg PO DAILY insulin lispro 100 UNIT/ML insulin pen 25 unit SQ AC pregabalin 100 MG capsule 100 mg PO TID Referrals Follow up/Referrals: Provider,Referral, MD [Primary Care Provider] - See instructions Clinical Impressions Clinical Impression: Left lower lobe pneumonia Discharge ED Provider: Mercedes Cage General Adult HPI General Chief complaint: Chest Pain Stated complaint: Chest pain Time Seen by Provider: 03/29/23 00:46 History of Present Illness HPI narrative: Patient has a PMHx significant for COPD on 2L NC at baseline, HTN, CAD, DM, CKD, CHF who presents to the ED via EMS with complaints of chest pain. Patient notes that upon awakening this morning, he was feeling very fatigued and short of breath. Patient notes that he took a dose of his diuretics, but has only urinated once today. Patient notes that as the day progressed, shortness of breath increased. Patient notes that he wears 2 L at baseline, but due to increasing shortness of breath changed to 3 L nasal cannula. Approximately 2 hours prior to arrival, the patient started experiencing chest pain, which she describes as a pressure sensation. Patient took 2 nitro tabs at home with some improvement of pain, but due to mike
--- NOTE | 2023-03-29 00:58 | XR_ITS ---
PROCEDURE INFORMATION: Exam: XR Chest Exam date and time: 03/29/2023 1:27 AM Age: 68 years old Clinical indication: Sternal or substernal pain; Additional info: Chest pain TECHNIQUE: Imaging protocol: Radiologic exam of the chest. Views: 1 view. COMPARISON: CR XR CHEST 2V 12/25/2021 8:01 PM FINDINGS: Lungs: There is mild prominence of the perihilar lung markings which could be related to crowding. Pleural spaces: No evidence of pleural effusion, pneumothorax, or pleural thickening in the visualized pleural spaces. Heart/Mediastinum: Stable cardiac and mediastinal contours. Bones/joints: No evidence of acute osseous abnormalities within the visualized portions of the thoracic spine and ribs. Osseous structures appear appropriate for patient age. Other findings: The patient is rotated on the examination which somewhat alters the expected anatomic relationships and limits the study. There is a low level of inspiration. IMPRESSION: No dense parenchymal consolidation, pleural effusion, or pneumothorax.
[2023-03-29 01:01] LABS: VBG Base Excess 2.6 mmol/L (-2.4-2.3); VBG HCO3 27.5 mmol/L (23-30); VBG Oxygen Saturation 87.2 % (50-70); VBG PCO2 46.4 mmol/L (35-51); VBG PH 7.39 mmol/L (7.31-7.41); VBG PO2 50.5 mmol/L (28-40); VBG Total CO2 28.9 mmol/L (23-27)
--- NOTE | 2023-03-29 01:06 | PC.NURSE ---
0052 bladder scan shows 400ml in bladder. Per , anchor latham catheter. 16fr latham catheter anchored, pt tolerated well. 400 ml clear/yellow urine drained.
[2023-03-29 01:07] LABS: Microscopic, Urine URINE MICROSCOPIC (MICROSCOPIC)
[2023-03-29 01:09] LABS: Appearance,Urine CLEAR (Clear); Bilirubin,Urine Negative (Negative); Blood, Urine Negative (Negative); Color,Urine YELLOW (Yellow); Glucose,Urine (UA) 2+ (Negative); Ketones,Urine Negative (Negative); Leukocyte Esterase,Urine 1+ (Negative); Nitrate,Urine Negative (Negative); Protein,Urine Negative (Negative); Urobilinogen,Urine 0.2 EU/dl (0.2)
[2023-03-29 01:15] LABS: Alanine Aminotransferase 46 U/L (12-78); Albumin Level 4.4 g/dl (3.5-5.0); Albumin/Globulin Ratio 1.4 (1.1-1.8); Alkaline Phosphatase 144 U/L (38-126); Anion Gap 16.9 mEq/L (5-15); Aspartate Amino Transferase 43 U/L (17-59); Bilirubin,Total 0.4 mg/dl (0.2-1.3); Blood Urea Nitrogen 11 mg/dl (9-20); Calcium 9.4 mg/dl (8.4-10.2); Carbon Dioxide 31 mmol/L (22.0-30.0); Chloride 91 mmol/L (98-107); Creatinine Clearance Estimated 85 mL/min (50-200); Estimated Glomerular Filt Rate 61 ml/min (>60); GFR (African American) 73 ML/MIN (>60); Globulin 3.2 g/dL (1.3-3.2); Glucose 380 mg/dl (74-100); Lipase 189 U/L (23-300); Potassium 3.9 mmoL/L (3.5-5.1); Sodium 135 mmol/L (136-145); Total Protein,Serum 7.6 g/dl (6.3-8.2)
[2023-03-29 01:17] LABS: Basophils # 0.1 K/mm3 (0-0.2); Basophils % 0.4 % (0.1-2.0); Eosinophils # 0.2 K/mm3 (0.0-0.4); Eosinophils % 0.8 % (0.1-12.0); Hematocrit 45.5 % (42.0-52.0); Hemoglobin 15.5 g/dL (14.1-18.0); Lymphocytes # 3.6 K/mm3 (0.7-4.5); Lymphocytes % 19.4 % (10-50); Mean Corpuscular Hemoglobin 31.5 pg (27.0-31.2); Mean Corpuscular Volume 92.6 fl (80-94); Mean Platelet Volume 10.1 fl (7.4-10.4); Monocytes % 5.2 % (1.7-9.3); Neutrophils # 13.8 K/mm3 (1.8-7.8); Neutrophils % 74.2 % (37.0-80.0); Platelet Count 212 K/mm3 (142-424); Red Blood Count 4.91 M/mm3 (4.60-6.20); Red Cell Distribution Width 14.8 % (11.5-17.5); White Blood Count 18.6 K/mm3 (4.8-10.8)
[2023-03-29 01:19] LABS: MANUAL DIFFERENTIAL MANUAL DIFFERENTIAL (MANUAL DIFF)
[2023-03-29 01:21] LABS: Squamous Epithelial Cell,Urine Occasional #/hpf (0-5)
[2023-03-29 01:27] LABS: NT Pro Brain Natriuretic Pep. < 20.0 pg/mL (0-125)
[2023-03-29 01:50] LABS: Troponin I < 0.01 ng/ml (0.00-0.034)
--- NOTE | 2023-03-29 02:31 | EXP.HP ---
History of Present Illness *Admission Date: 03/29/23 *Reason for visit:: chest thighness *History of present illness: This is a 68yo male with PMHx significant for COPD on 2L NC at baseline, HTN, CAD, DM, CKD, CHF who presented to the ED via EMS with complaints of chest pain. Patient notes that upon awakening this morning, he was feeling very fatigued and short of breath. Also reported not able to urinate despite taking a dose of his diuretics. Shortness of breath increased and worsened throughout the day today Approximately 2 hours prior to arrival, the patient started experiencing chest pain, which she describes as a pressure sensation. Patient took 2 nitro tabs at home with some improvement of pain, but due to continued pain decided call EMS. In route, EMS gave the patient 324 of aspirin and another nitro tab. Patient reports that he underwent a heart cath 3 months ago that was negative. Patient is on Xarelto at home. Admitted for treatment and management. [facility] Disclaimer: The information contained in this section may have been updated after the patient was seen, as this information can be updated by other users. Medical History Abnormal EKG Atypical angina Chest pain Edema Encounter for immunization HTN (hypertension) Leg pain, bilateral SOB (shortness of breath) Tachycardia Surgical History H/O repair of rotator cuff Family History Other Diabetes Hypertension Stroke Social History (Updated 03/29/23 @ 03:36 by Lashonda Monge RN) Smoking Status: Unknown if ever smoked alcohol intake: never substance use type: denies use current occupational status: unemployed Travel in the last 8 weeks: None household members: spouse housing: house caffeine: Yes Review of Systems Review of Systems Review of systems:: pertinent systems reviewed and negative unless documented below Meds Home Medications and Allergies Home Medications Medication Instructions Recorded Confirmed Type montelukast 10 mg tablet 10 mg PO PM Allergy symptoms 11/20/17 03/29/23 History insulin lispro 100 unit/mL 25 unit SQ AC Diabetes 12/26/21 03/29/23 History subcutaneous pen levothyroxine 175 mcg tablet 175 mcg PO DAILY Thyroid 12/26/21 03/29/23 History pregabalin 100 mg capsule 100 mg PO TID Pain 12/26/21 03/29/23 History tizanidine 4 mg tablet 4 mg PO HSP PRN Muscle Spasm #90 04/20/22 03/29/23 Rx tabs isosorbide mononitrate 60 mg 60 mg PO DAILY #90 tabs 10/05/22 03/29/23 Rx tablet,extended release 24 hr escitalopram oxalate 10 mg tablet 10 mg PO DAILY Depression #90 tabs 10/19/22 03/29/23 Rx albuterol sulfate 90 mcg/actuation 2 puff inhalation Q4-6H PRN 01/01/23 03/29/23 Rx aerosol inhaler (Ventolin HFA) shortness of breath or wheezing #8.5 grams oxycodone-acetaminophen 10 mg-325 1 tab PO TIDP PRN Moderate Pain 03/07/23 03/29/23 History mg tablet (Scale Score 5-6) semaglutide 1 mg/dose (4 mg/3 mL) 1 mg SQ WEEKLY Diabetes 03/07/23 03/29/23 History subcutaneous pen injector (Ozempic) diazepam 5 mg tablet 5 mg PO TID Tremors #90 tabs 03/09/23 03/29/23 Rx insulin glargine 100 unit/mL (3 80 unit SQ DAILY Diabetes 03/09/23 03/29/23 History mL) subcutaneous pen (Basaglar KwikPen U-100 Insulin) allopurinol 300 mg tablet 300 mg PO DAILY Gout 03/29/23 03/29/23 History aripiprazole 5 mg tablet 5 mg PO DAILY Mood 03/29/23 03/29/23 History aspirin 81 mg chewable tablet 81 mg PO DAILY Heart Health 03/29/23 03/29/23 History atorvastatin 40 mg tablet 40 mg PO HS Cholesterol 03/29/23 03/29/23 History cetirizine 10 mg tablet 10 mg PO DAILY Allergy Symptoms 03/29/23 03/29/23 History furosemide 40 mg tablet 40 mg PO DAILY Fluid 03/29/23 03/29/23 History metoprolol succinate 25 mg 25 mg PO DAILY High Blood Pressure 03/29/23 03/29/23 History tablet,extend
[2023-03-29 02:35] LABS: Lymphocytes % 22 % (10-50); Monocytes % 3 % (2-9); Neutrophils % 74 % (42-76); Platelet Estimate Normal; RBC Morphology Normal; Total Cells Counted 100
--- NOTE | 2023-03-29 02:46 | PC.NURSE ---
called [facility] for admission
[2023-03-29 03:05] LABS: Hemoglobin A1C 8.7 % (4.0-6.0)
[2023-03-29 03:54] LABS: Basophils # 0.1 K/mm3 (0-0.2); Basophils % 0.4 % (0.1-2.0); Eosinophils # 0.2 K/mm3 (0.0-0.4); Eosinophils % 1.1 % (0.1-12.0); Hematocrit 43.5 % (42.0-52.0); Hemoglobin 15.2 g/dL (14.1-18.0); Lymphocytes # 2.5 K/mm3 (0.7-4.5); Lymphocytes % 17.7 % (10-50); Mean Corpuscular HGB Conc 34.9 g/dL (31.8-35.4); Mean Corpuscular Hemoglobin 32.5 pg (27.0-31.2); Mean Corpuscular Volume 93.1 fl (80-94); Mean Platelet Volume 9.8 fl (7.4-10.4); Monocytes # 0.8 K/mm3 (0.1-1.0); Monocytes % 5.6 % (1.7-9.3); Neutrophils # 10.8 K/mm3 (1.8-7.8); Neutrophils % 75.3 % (37.0-80.0); Platelet Count 185 K/mm3 (142-424); Red Blood Count 4.67 M/mm3 (4.60-6.20); Red Cell Distribution Width 14.8 % (11.5-17.5); White Blood Count 14.3 K/mm3 (4.8-10.8)
[2023-03-29 04:19] LABS: Chloride 93 mmol/L (98-107); Potassium 3.8 mmoL/L (3.5-5.1); Sodium 136 mmol/L (136-145)
[2023-03-29 04:21] LABS: Blood Urea Nitrogen 12 mg/dl (9-20); Creatinine Clearance Estimated 85 mL/min (50-200); Estimated Glomerular Filt Rate 61 ml/min (>60); GFR (African American) 73 ML/MIN (>60)
[2023-03-29 04:22] LABS: Alanine Aminotransferase 45 U/L (12-78); Albumin Level 4.3 g/dl (3.5-5.0); Albumin/Globulin Ratio 1.3 (1.1-1.8); Alkaline Phosphatase 145 U/L (38-126); Anion Gap 14.8 mEq/L (5-15); Aspartate Amino Transferase 48 U/L (17-59); Bilirubin,Total 0.2 mg/dl (0.2-1.3); Calcium 8.7 mg/dl (8.4-10.2); Carbon Dioxide 32 mmol/L (22.0-30.0); Globulin 3.3 g/dL (1.3-3.2); Glucose 320 mg/dl (74-100); Total Protein,Serum 7.6 g/dl (6.3-8.2)
[2023-03-29 04:26] LABS: Hemoglobin A1C 8.6 % (4.0-6.0)
[2023-03-29 04:48] LABS: Troponin I < 0.01 ng/ml (0.00-0.034)
[2023-03-29 05:18] LABS: POC Glucose,Bedside 296 (70-110)
--- NOTE | 2023-03-29 07:56 | HMH.PHAINT1 ---
Pharmacy Intervention Comments: MEDICATION RECONCILIATION COMPLETED ON PATIENT USING EXTERNAL FILL HISTORY FROM PHARMACY AND LIST FROM PCP OFFICE. -GLADIS OLMSTEAD, COND
[2023-03-29 09:05] LABS: Troponin I < 0.01 ng/ml (0.00-0.034)
[2023-03-29 11:49] LABS: POC Glucose,Bedside 304 (70-110)
[2023-03-29 11:49] LABS: POC Glucose,Bedside 311 (70-110)
--- NOTE | 2023-03-29 13:49 | HMH.PTEV ---
Physical Therapy Evaluation Rehab PT IP Evaluation Start: 03/29/23 12:08 Freq: ONCE Status: Active Protocol: Document 03/29/23 13:44 PHORNE (Rec: 03/29/23 13:49 PHORNE [id number]) Subjective/History History History 68 yowm adm to [facility] with PNA. PMHx significant for COPD on 2L NC at baseline, HTN, CAD, DM, CKD, CHF. He reports he uses a walker for ambulation at home and has assistance with all transfers and ADLs at baseline. He uses oxygen via NC at all times at baseline. Subjective Subjective Pt has no c/o at this time other than generalized fatigue . New diagnosis of cancer in past 12 No months? Rehab PT IP Eval Objective Appearance Patient Behavior Appropriate Patient Orientation Person,Place,Time Difficulty following instructions none Speech Pattern Clear Ambulation Patient Able to Ambulate Yes Ambulation Observation IP General Gait Pattern Observation Wide Based Gait,Shuffling Step Ambulation Distance (feet) 10 Ambulation Assistive Device None Ambulation Ability Minimal x 1 (25% assist) Balance Ability to Arise Able, uses arms to help Sitting Balance Steady, safe Standing Balance Unsteady Dynamic Sitting Balance Ability Fair Dynamic Standing Balance Ability Poor Transfers Bed Transfer Ability Minimal x 1 (25% assist) Chair Transfer Ability Minimal x 1 (25% assist) Sit to Stand Bed Transfer Ability Minimal x 1 (25% assist) Sit to Stand Chair Transfer Ability Minimal x 1 (25% assist) Rehab PT IP prob,goals,plan Problems Date of Evaluation: 03/29/23 PT IP Problems Bed Mobility,Transfers,Gait Rehab Potential Rehab Potential Good Plan PT Intervention Plan Bed Mobility,Transfers,Gait, Therapeutic Exercise PT Plan Frequency Daily Duration LOS Discharge Goals Bed Transfer Ability Contact Guard/Hand Hold Sit to Stand Chair Transfer Ability Minimal x 1 (25% assist) Ambulation Assistive Device Rolling Walker Ambulation Distance (feet) 20 Discharge Plan PT Discharge Plan Pt is currently at or close to baseline for all activity ( which was very poor to begin with). He is appropriate to return home once medically
--- NOTE | 2023-03-29 13:55 | HMH.OTEV ---
OT Inpatient Evaluation Rehab OT IP Evaluation Start: 03/29/23 12:08 Freq: ONCE Status: Active Protocol: Document 03/29/23 13:48 [facility] (Rec: 03/29/23 13:55 [facility] [id number]) Rehab OT IP Assessment Subjective History Pt oriented x 3 on arrival. Pt agreeable to engage in therapy evaluation. Pt was admitted on 03/29/23 for left lower lobe PNA. Pt is a 68yo male with PMHx significant for COPD on 2L NC at baseline, HTN, CAD, DM, CKD, CHF who presented to the ED via EMS with complaints of chest pain. Prior to being in the hospital pt lived at home with his . Pt reports he requires assistance with bathing and dressing. He also has sitters that come to assist with ADLs . He is dependent upon others for completion of all IADLs. Pt does use a rolling walker during transfers. He wear o2 at all times. Subjective I am still tired. Objective Patient Orientation Person,Place,Birthday Upper Extremity Gross ROM WFL Bed Mobility bed mobility-scooting,bed mobility - supine/sit Assist Level Minimal x 1 (25% assist) Transfer Training Sit/Stand Transfer Assist Level Minimal x 2 (25% assist) Rehab OT IP prob,goals,plan Problems Date of Evaluation: 03/29/23 OT IP Problems Bed Mobility,Transfers,Balance ,Self care,Safety Rehab Potential Rehab Potential Good Equipment Needs Assistive Devices Rolling / Wheeled Walker Plan OT intervention Plan Bed Mobility,Transfers,Balance ,Self care,Safety,Therapeutic Exercise OT Plan Frequency BID Duration LOS Discharge Goals Bed Mobility Ability Standby Assistance,Assistance x1 Sit to Stand Chair Transfer Ability Minimal x 1 (25% assist) Chair Transfer Ability Minimal x 1 (25% assist) Chair Transfer Technique Sit to/from Ambulatory Chair Transfer Assistive Devices Rolling Walker Feeding Ability Assist with Tray Set Up Lower Body Dressing Ability Assistance X1 Upper Body Dress
[2023-03-29 16:19] LABS: POC Glucose,Bedside 276 (70-110)
--- NOTE | 2023-03-29 18:36 | PC.NURSE ---
Patient Rodriguez catheter taken out at 1100, patient unable to void. MD aware.
[2023-03-29 21:44] LABS: POC Glucose,Bedside 189 (70-110)
--- NOTE | 2023-03-29 23:08 | PC.NURSE ---
2310 PATIENT HAS NOT VOIDED SINCE 11:30 THIS AM. ORDER RECEIVED TO BLADDER SCAN AND IF > 300 PERFORM I/O CAT.
--- NOTE | 2023-03-29 23:09 | PC.NURSE ---
500 UOP VIA I/O CATH. U/A SENT TO LAB. SEVERIANO Yu NP NOTIFIED. TO BLADDER SCAN AGAIN IN 6 HRS AND IF > 300 I/O CATH AGAIN.
[2023-03-29 23:26] LABS: Microscopic,Cath URINE MICROSCOPIC (MICROSCOPIC)
[2023-03-29 23:27] LABS: Appearance,Urine/Cath CLOUDY (Clear); Bilirubin,Cath Negative (Negative); Blood, Urine/Cath 3+ (Negative); Color,Urine/Cath DARK YELLOW (Yellow); Glucose,Urine/Cath (UA) 1+ (Negative); Ketones,Urine/Cath Negative (Negative); Leukocyte Esterase,Cath Negative (Negative); Nitrate,Cath Negative (Negative); Protein,Urine/Cath TRACE (Negative); Specific Gravity, Urine/Cath 1.025 (1.005-1.030); Urobilinogen,Cath 0.2 EU/dl (0.2)
[2023-03-30] VITALS: BP 105/60; PULSE 69; RESP 18; TEMP 36.3; O2SAT 95
[2023-03-30 00:21] LABS: Squamous Epithelial Ur./Cath Occasional #/hpf (0-5); WBC,Urine/Cath Occasional #/hpf (0-3)
--- NOTE | 2023-03-30 03:26 | PC.NURSE ---
#18 fr latham cath anchored due to 1000 cc uop. Pt says he retains urine and has to have a latham catheter at home.
[2023-03-30 04:00] VITALS: BP 111/60; PULSE 66; RESP 18; TEMP 36.4; O2SAT 94; BMI 32.8
--- NOTE | 2023-03-30 05:11 | PC.NURSE ---
RESTING IN BED. C/O LOW BACK PAIN EARLY IN THE SHIFT AND RECEIVED TYLENOL 650 MG PO. F/C INTACT TO BSD, UOP CLEAR LIGHT YELLOW. NO COUGHING NOTED. 02 AT 2LNC. 02 [id number]
[2023-03-30 05:47] LABS: POC Glucose,Bedside 138 (70-110)
[2023-03-30 07:25] LABS: Basophils % 0.5 % (0.1-2.0); Eosinophils # 0.2 K/mm3 (0.0-0.4); Eosinophils % 3.4 % (0.1-12.0); Hematocrit 42.1 % (42.0-52.0); Hemoglobin 14.5 g/dL (14.1-18.0); Lymphocytes % 28.4 % (10-50); Mean Corpuscular HGB Conc 34.5 g/dL (31.8-35.4); Mean Corpuscular Volume 92.8 fl (80-94); Mean Platelet Volume 9.4 fl (7.4-10.4); Monocytes # 0.4 K/mm3 (0.1-1.0); Monocytes % 6.1 % (1.7-9.3); Neutrophils # 4.3 K/mm3 (1.8-7.8); Neutrophils % 61.7 % (37.0-80.0); Platelet Count 137 K/mm3 (142-424); Red Blood Count 4.54 M/mm3 (4.60-6.20); Red Cell Distribution Width 14.8 % (11.5-17.5); White Blood Count 6.9 K/mm3 (4.8-10.8)
[2023-03-30 07:26] LABS: Chloride 101 mmol/L (98-107); Potassium 3.6 mmoL/L (3.5-5.1); Sodium 136 mmol/L (136-145)
[2023-03-30 07:29] LABS: Alanine Aminotransferase 35 U/L (12-78); Albumin Level 3.8 g/dl (3.5-5.0); Albumin/Globulin Ratio 1.3 (1.1-1.8); Alkaline Phosphatase 89 U/L (38-126); Anion Gap 8.6 mEq/L (5-15); Aspartate Amino Transferase 47 U/L (17-59); Bilirubin,Total 0.6 mg/dl (0.2-1.3); Blood Urea Nitrogen 12 mg/dl (9-20); Calcium 8.1 mg/dl (8.4-10.2); Carbon Dioxide 30 mmol/L (22.0-30.0); Creatinine Clearance Estimated 109 mL/min (50-200); Estimated Glomerular Filt Rate 84 ml/min (>60); GFR (African American) 102 ML/MIN (>60); Glucose 147 mg/dl (74-100); Total Protein,Serum 6.8 g/dl (6.3-8.2)
[2023-03-30 07:30] LABS: Magnesium 1.7 mg/dl (1.6-2.3)
[2023-03-30 08:00] VITALS: BP 116/58; PULSE 74; RESP 19; TEMP 36.6; O2SAT 94; O2SAT 96
[2023-03-30 09:08] LABS: POC Glucose,Bedside 241 (70-110)
--- NOTE | 2023-03-30 10:04 | SW/DCPLANNER ---
Addendum entered by Alley Velasquez 03/30/23 13:51: Lilli w/ [facility] stated that services will begin Sunday04/02/23 for this patient. Original Note: I spoke w/ this patient regarding plans once medically stable for discharge. PT/OT recommended that patient return home w/ home health services. Patient is agreeable to home health and stated that he has used [facility] in the past. Patient stated that he prefer to use [facility] once discharged and will have 24/ assistance at home. Patient does currently use home O2 and will have a portable tank. I will fax patient information/order to [facility] at time of discharge. Patient may discharge home later today.
--- NOTE | 2023-03-30 11:16 | PC.NURSE ---
courtesy tech note: pt is sitting up in bed. A pitcher of ice water was given per request. Call light is within reach.
[2023-03-30 12:00] VITALS: BP 133/73; PULSE 89; RESP 19; TEMP 36.8; O2SAT 98
--- NOTE | 2023-03-30 12:31 | EXP.DC.SUM ---
General Admission date:: 03/29/23 Discharge date: 03/30/23 HPI HPI HPI: This is a 68yo male with PMHx significant for COPD on 2L NC at baseline, HTN, CAD, DM, CKD, CHF who presented to the ED via EMS with complaints of chest pain. Patient notes that upon awakening this morning, he was feeling very fatigued and short of breath. Also reported not able to urinate despite taking a dose of his diuretics. Shortness of breath increased and worsened throughout the day today Approximately 2 hours prior to arrival, the patient started experiencing chest pain, which she describes as a pressure sensation. Patient took 2 nitro tabs at home with some improvement of pain, but due to continued pain decided call EMS. In route, EMS gave the patient 324 of aspirin and another nitro tab. Patient reports that he underwent a heart cath 3 months ago that was negative. Patient is on Xarelto at home. Admitted for treatment and management. Hospital Course Hospital Course Hospital Course: 68yo male with PMHx significant for COPD on 2L NC at baseline, HTN, CAD, DM, CKD, heart failure with preserved ejection fraction, progressive paralysis, dependent on his and a private sitter for ADLs who presented to the ED via EMS with complaints of chest pain. Patient notes that upon awakening this morning, he was feeling very fatigued and short of breath. Also reported not able to urinate despite taking a dose of his diuretics. Upon arrival patient was found tachycardia, elevated WBC, on acute urinary retention. CXR was obtained. Discussion with ER provider was made for admission. Symptoms have improved during admission, white cell count normalized. Stable kidney function and electrolytes. Back to baseline oxygen requirement. Stable for discharge home with home health. Problems addressed as follows: -left lower pneumonia: -COPD exacerbation Confirmed clinically. pain may be pleuritic pain on his left side, ACS ruled out. however patient had 3 rounds of nitro and ASA. EKG reviewed and there is negative. Findings are significant for increased difficult breathing and moderate leukocytosis. Radiology did not confirm the diagnosis. Imaging reviewed. Patient improved during admission to baseline oxygen of 2 L continuously. Was started on azithromycin and ceftriaxone. We will continue antibiotics to complete 5 days total with azithromycin and cefdinir. Stable on his baseline oxygen requirement. Continue breathing treatment per home regimen. Sputum obtained, still pending at discharge. - Acute urinary retention in the setting of chronic cauda equina syndrome. - Neurogenic bladder -No UTI noted during admission. Rodriguez catheter placed due to inability to void. Patient on oxybutynin at baseline. Added tamsulosin. His Rodriguez was placed during admission and left at discharge due to retention, will refer patient to urology for further management. Patient states he does not in and out cath at home, this would likely be a safer option than long-term indwelling Rodriguez given increased risk for infection. Explained this to patient. He would like to keep Rodriguez at this time given difficulty with urination. -Chronic conditions: CHF, HTN HLD, COPD: Conditions reviewed. does not seem to be on fluid overload or COPD exacerbation. Continue home regimen. -Uncontrolled Diabetes Mellitus: A1c 8.7. resume home lantus. sliding scale. Significant social determinants of health given patient's stability, functional paraplegia, dependence upon others for all of his ADLs. This significantly complicates his condition. If he did not have a spouse that cared for him heating engineer that cared for him 25/12, he would surely be in a nursing facility. Home health consult placed on discharge Exam Data for Last 24 hours Vital signs and Labs for Last 24 Hours: Temp Pulse Resp BP Pulse Ox O2 Del Method O2 Flow Rate 97.8 F 74 19 116/58 L 96 Nasal Cannula 2 03/30/23 08:00 03/30/23 08:00
[2023-03-30 12:32] LABS: POC Glucose,Bedside 260 (70-110)
--- NOTE | 2023-03-30 13:33 | HMH.PHAINT1 ---
Pharmacy Intervention Comments: DISCHARGE MEDICATION COUNSELING PROVIDED. DISCUSSED STARTING THE FOLLOWING: -AZITHROMYCIN (ANTIBIOTIC, DAILY, TAKE WITH FOOD, N/V/D POSSIBLE) -CEFDINIR (ANTIBIOTIC, TWICE DAILY, TAKE WITH FOOD, N/V/D POSSIBLE) -TAMSULOSIN (FOR PROSTATE/URINARY FUNCTION, TAKE AT BEDTIME, DIZZINESS, LIGHTHEADEDNESS, LOW BP POSSIBLE) PATIENT VERBALIZED NO QUESTIONS AT THIS TIME.
--- NOTE | 2023-03-30 13:36 | PC.NURSE ---
Spoke with daughter and she can have him picked up between 15:30- 16:00.
--- NOTE | 2023-04-02 16:25 | CARE MANAGER ---
Spoke with patient's daughter who states that he is doing ok. She states they asked for latham cath supplies to take home and the hospital did not send any. We discussed how typically the bags and actually foleys are provided by whomever is caring for it in the outpatient setting, such as home health who is seeing the patient. She said he otherwise had no issues with his stay. His medications were picked up and they deny any questions. ANGELLA Barney
--- NOTE | 2023-04-07 15:26 | PC.NURSE ---
blood culture results on worklist, notified dr. ayers (on shift at the time). He states culture is most likely a contaminant however he does request a f/u call with pt to see how pt is feeling. Called the number on pts chart- was pts daughter/POA. Daughter reports pt is feeling better regarding his pneumonia. states she is having some difficulty getting pt in for a urology appt, gave her another number to call for a urologist.
== END 2023-03-30 16:02 | disposition home health service (06) ==
LOC: ER 02:19 → 2ND 03:07
PROVIDERS: Nurse Practitioner Family; Admitting Provider Internal Medicine Adolescent Medicine; Emergency Provider Emergency Medicine; PCP Emergency Medicine; Visit Provider Internal Medicine Adolescent Medicine
DX: J18.9 Pneumonia, unspecified organism (principal); R33.8 Other retention of urine; G83.4 Cauda equina syndrome; I50.22 Chronic systolic (congestive) heart failure; I13.0 Hypertensive heart and chronic kidney disease with heart failure and stage 1 through stage 4 chronic kidney disease, or unspecified chronic kidney disease; E78.49 Other hyperlipidemia; J44.9 Chronic obstructive pulmonary disease, unspecified; E11.69 Type 2 diabetes mellitus with other specified complication; Z79.4 Long term (current) use of insulin; Z79.01 Long term (current) use of anticoagulants; Z99.81 Dependence on supplemental oxygen; N18.9 Chronic kidney disease, unspecified; E11.22 Type 2 diabetes mellitus with diabetic chronic kidney disease; F44.4 Conversion disorder with motor symptom or deficit
CPT/HCPCS: 36415; 51702; 71045; 80053; 81001; 82803; 82962; 83036; 83690; 83735; 83880; 84484; 85007; 85025; 87040; 87086; 93005; 97110; 97163; 97166; 99285; G0378; J0456; J0696

== ENCOUNTER 2023-03-30 20:43 | Emergency (ER) | payer MEDICARE, OTHER, SELFPAY ==
--- NOTE | 2023-03-30 20:20 | PC.NURSE ---
[facility]; patient is a&ox4, 68 yo male who called ems tonight after rolling over and pulling/tugging on indwelling latham catheter. No bleeding evident, but rates pain to jonas /suprapubic area 5/10. Unsure of still draining appropriately and 'wants to be checked out'. Room assigned 10.
[2023-03-30 20:35] VITALS: BP 119/69; PULSE 102; RESP 20; TEMP 36.7; O2SAT 95; BMI 67.6
--- NOTE | 2023-03-30 20:36 | PC.NURSE ---
in rrom talking with patient at this time.
--- NOTE | 2023-03-30 20:37 | HMH.EDGENADL ---
Discharge Plan Disposition Patient Disposition: Home, Self-Care Prescriptions Prescriptions: No Action montelukast 10 mg tablet 10 mg PO PM insulin glargine [Basaglar FaucndoPen U-100 Insulin] 100 unit/mL (3 mL) insulin pen 80 unit SQ DAILY diazepam 5 mg tablet 5 mg PO TID Qty: 90 2RF tizanidine 4 mg tablet 4 mg PO HSP PRN (Reason: Muscle Spasm) Qty: 90 3RF oxycodone-acetaminophen 10-325 mg tablet 1 tab PO TIDP PRN (Reason: Moderate Pain (Scale Score 5-6)) Patient Comments: TAKE 1 TABLET BY MOUTH THREE TIMES DAILY NEEDED Ozempic 1 mg/dose (4 mg/3 mL) pen injector 1 mg SQ WEEKLY Patient Comments: INJECT 1MG UNDER THE SKIN 1 TIME A WEEK isosorbide mononitrate 60 mg tablet extended release 24 hr 60 mg PO DAILY Qty: 90 3RF escitalopram oxalate 10 mg tablet 10 mg PO DAILY Qty: 90 1RF albuterol sulfate [Ventolin HFA] 90 mcg/actuation HFA aerosol inhaler 2 puff IH Q4-6H PRN (Reason: shortness of breath or wheezing) Qty: 8.5 10RF furosemide 40 mg tablet 40 mg PO DAILY atorvastatin 40 mg tablet 40 mg PO HS oxybutynin chloride 15 mg tablet extended release 24hr 15 mg PO DAILY cetirizine 10 mg tablet 10 mg PO DAILY topiramate [Topamax] 25 mg tablet 25 mg PO DAILY spironolactone 25 mg tablet 25 mg PO BID pantoprazole 40 mg tablet,delayed release (DR/EC) 40 mg PO DAILY nitroglycerin 0.4 mg tablet, sublingual 0.4 mg SUBLINGUAL Q5MINP PRN (Reason: chest pain) aspirin 81 mg tablet,chewable 81 mg PO DAILY allopurinol 300 mg tablet 300 mg PO DAILY metoprolol succinate [Toprol XL] 25 mg tablet extended release 24 hr 25 mg PO DAILY aripiprazole 5 mg tablet 5 mg PO DAILY rivaroxaban 15 mg tablet 15 mg PO QPMWITHMEAL potassium chloride 20 mEq tablet extended release 20 meq PO DAILY tamsulosin 0.4 mg Capsule 0.8 mg PO HS 30 Days Qty: 60 0RF azithromycin 500 mg tablet 500 mg PO DAILY 3 Days Qty: 3 0RF cefdinir 300 mg capsule 300 mg PO BID 3 Days Qty: 6 0RF levothyroxine 175 MCG tablet 175 mcg PO DAILY insulin lispro 100 UNIT/ML insulin pen 25 unit SQ AC pregabalin 100 MG capsule 100 mg PO TID Clinical Impressions Clinical Impression: Complication of Latham catheter Instructions Patient Instructions: DI for Urinary Tract Infection (UTI), DI for Urinary Tract Infection in Children Discharge ED Provider: Karla Mascorro General Adult HPI General Chief complaint: Urogenital-Male Stated complaint: latham cath issues Time Seen by Provider: 03/30/23 20:43 History of Present Illness HPI narrative: Patient is a 68-year-old male who was discharged earlier today had a diagnosis of acute urinary retention and pneumonia. Had a Latham catheter that was indwelling and was told to follow-up with urology for a voiding trial. However he went home and felt like his Latham may have repositioned and started having leaking outside of his Latham catheter. Denies any significant pain or other symptoms. Related Data Home Medications Medication Instructions Recorded Confirmed montelukast 10 mg tablet 10 mg PO PM Allergy symptoms 11/20/17 03/29/23 insulin lispro 100 unit/mL 25 unit SQ AC Diabetes 12/26/21 03/29/23 subcutaneous pen levothyroxine 175 mcg tablet 175 mcg PO DAILY Thyroid 12/26/21 03/29/23 pregabalin 100 mg capsule 100 mg PO TID Pain 12/26/21 03/29/23 oxycodone-acetaminophen 10 mg-325 1 tab PO TIDP PRN Moderate Pain 03/07/23 03/29/23 mg tablet (Scale Score 5-6) semaglutide 1 mg/dose (4 mg/3 mL) 1 mg SQ WEEKLY Diabetes 03/07/23 03/29/23 subcutaneous pen injector (Ozempic) insulin glargine 100 unit/mL (3 80 unit SQ DAILY Diabetes 03/09/23 03/29/23 mL) subcutaneous pen (Basaglar KwikPen U-100 Insulin) allopurinol 300 mg tablet 300 mg PO DAILY Gout 03/29/23 03/29/23 aripiprazole 5 mg tablet 5 mg PO DAILY Mood 03/29/23 03/29/23 aspi
[2023-03-30 20:45] VITALS: BP 119/69; PULSE 102; O2SAT 97
[2023-03-30 21:00] VITALS: BP 121/68; PULSE 99; O2SAT 96
--- NOTE | 2023-03-30 21:37 | PC.NURSE ---
Patient resting in bed at this time. No complaints of pain at catheter site. Urine remains yellow and clear. Emptied 1000ml out of urine meter bag.
[2023-03-30 22:01] VITALS: BP 125/67; PULSE 95; RESP 18; TEMP 36.7; O2SAT 96
== END 2023-03-30 22:02 | disposition home or self-care (01) ==
LOC: ER 21:01
PROVIDERS: Emergency Provider Student in an Organized Health Care Education/Training Program; PCP Emergency Medicine
DX: T83.091A Other mechanical complication of indwelling urethral catheter, initial encounter (principal); I20.89 Other forms of angina pectoris; I11.9 Hypertensive heart disease without heart failure
CPT/HCPCS: 99282

== ENCOUNTER 2023-04-11 21:19 | Observation (INO) | payer MEDICARE, OTHER, SELFPAY ==
[2023-04-11 21:19] VITALS: BP 91/52; PULSE 120; RESP 20; TEMP 37.6; O2SAT 94; BMI 32.1
[2023-04-11 21:31] VITALS: BP 99/67; PULSE 119; O2SAT 93
--- NOTE | 2023-04-11 21:37 | XR_ITS ---
PROCEDURE INFORMATION: Exam: XR Chest Exam date and time: 04/11/2023 9:59 PM Age: 68 years old Clinical indication: Cough and shortness of breath; Additional info: Cough, SOA TECHNIQUE: Imaging protocol: Radiologic exam of the chest. Views: 1 view. COMPARISON: CR XR CHEST PORTABLE 03/29/2023 1:27 AM FINDINGS: Lungs: Unremarkable. No consolidation. Pleural spaces: Unremarkable. No pleural effusion. No pneumothorax. Heart/Mediastinum: Evidence for a left paratracheal mass at the thoracic inlet noted. Bones/joints: Unremarkable. IMPRESSION: 1. No acute abnormality. 2. Evidence for left paratracheal mass or mass effect raising concern for possible enlarged left thyroid mass. Advise further assessment with nonemergent ultrasound of the thyroid.
--- NOTE | 2023-04-11 21:54 | PC.NURSE ---
VBG collected at this time. RT at bedside
[2023-04-11 22:00] VITALS: BP 119/67; PULSE 112; O2SAT 95
[2023-04-11 22:00] LABS: VBG Base Excess -4.4 mmol/L (-2.4-2.3); VBG HCO3 20.3 mmol/L (23-30); VBG Oxygen Saturation 90.7 % (50-70); VBG PCO2 33.3 mmol/L (35-51); VBG PO2 57.6 mmol/L (28-40); VBG Total CO2 21.3 mmol/L (23-27)
[2023-04-11 22:01] VITALS: PULSE 114
[2023-04-11 22:31] VITALS: BP 120/66; PULSE 122; O2SAT 94
--- NOTE | 2023-04-11 22:34 | PC.NURSE ---
Pt yeison chamged out per Dr Campa
--- NOTE | 2023-04-11 22:35 | HMH.EDGENADL ---
Discharge Plan Disposition Patient Disposition: Admitted Condition: Fair Prescriptions Prescriptions: No Action insulin glargine [Makenzie Paris U-100 Insulin] 100 unit/mL (3 mL) insulin pen 80 unit SQ DAILY diazepam 5 mg tablet 5 mg PO TID Qty: 90 2RF tizanidine 4 mg tablet 4 mg PO HSP PRN (Reason: Muscle Spasm) Qty: 90 3RF oxycodone-acetaminophen 10-325 mg tablet 1 tab PO TIDP PRN (Reason: Moderate Pain (Scale Score 5-6)) Patient Comments: TAKE 1 TABLET BY MOUTH THREE TIMES DAILY NEEDED Ozempic 1 mg/dose (4 mg/3 mL) pen injector 1 mg SQ WEEKLY Patient Comments: INJECT 1MG UNDER THE SKIN 1 TIME A WEEK isosorbide mononitrate 60 mg tablet extended release 24 hr 60 mg PO DAILY Qty: 90 3RF escitalopram oxalate 10 mg tablet 10 mg PO DAILY Qty: 90 1RF albuterol sulfate [Ventolin HFA] 90 mcg/actuation HFA aerosol inhaler 2 puff IH Q4-6H PRN (Reason: shortness of breath or wheezing) Qty: 8.5 10RF topiramate 50 mg tablet See Rx Instructions .ROUTE .COMPLEX Qty: 90 0RF Dose Instruction: TAKE 1 TABLET BY MOUTH DAILY FOR MIGRAINE Rx Instructions: TAKE 1 TABLET BY MOUTH DAILY FOR MIGRAINE furosemide 40 mg tablet 40 mg PO DAILY atorvastatin 40 mg tablet 40 mg PO HS oxybutynin chloride 15 mg tablet extended release 24hr 15 mg PO DAILY topiramate [Topamax] 25 mg tablet 25 mg PO DAILY spironolactone 25 mg tablet 25 mg PO BID pantoprazole 40 mg tablet,delayed release (DR/EC) 40 mg PO DAILY nitroglycerin 0.4 mg tablet, sublingual 0.4 mg SUBLINGUAL Q5MINP PRN (Reason: chest pain) aspirin 81 mg tablet,chewable 81 mg PO DAILY allopurinol 300 mg tablet 300 mg PO DAILY metoprolol succinate [Toprol XL] 25 mg tablet extended release 24 hr 25 mg PO DAILY aripiprazole 5 mg tablet 5 mg PO DAILY rivaroxaban 15 mg tablet 15 mg PO QPMWITHMEAL potassium chloride 20 mEq tablet extended release 20 meq PO DAILY tamsulosin 0.4 mg Capsule 0.8 mg PO HS 30 Days Qty: 60 0RF levothyroxine 175 MCG tablet 175 mcg PO DAILY insulin lispro 100 UNIT/ML insulin pen 25 unit SQ AC pregabalin 100 MG capsule 100 mg PO TID Clinical Impressions Clinical Impression: Acute and chronic respiratory failure, Acute exacerbation of chronic obstructive pulmonary disease, SIRS (systemic inflammatory response syndrome), STEPHANI (acute kidney injury), Peritracheal mass Discharge ED Provider: Estephania Campa General Adult HPI <Estephania Campa DO - Last Filed: 04/11/23 23:24> General Chief complaint: Urogenital-Male Stated complaint: weakness Time Seen by Provider: 04/11/23 21:23 Mode of Arrival: EMS Source of Information: Patient and EMS Limitations: No Limitations Description of Symptoms (Recalled from ER Triage Doc. by RN): Pt arrives via [facility]. with c/o increased weakness, back pain, and bleeding around his latham which was placed here 2 weeks ago. Blood present on meatus no hematuria in latham bag. Denies any pulling of tubing. History of Present Illness HPI narrative: This patient is a 68-year-old male with a history of type 2 diabetes, hypertension, hyperlipidemia, CKD, systolic heart failure, COPD on 2 L nasal cannula home, progressive paralysis, and urinary retention with Latham catheter in place presenting to the emergency department with concern for increasing weakness, back pain, bleeding around his Latham, fevers, cough, congestion, and shortness of breath that have been worsening over the last few days. The Latham catheter has been in place since 03/30/2023 after it was replaced in the ED following accidental removal after discharge from 03/29. He was admitted at that time for COPD exacerbation and urinary retention. On medical record review, he was seen by his primary care provider on 04/09/2023 and was doing well at that time. He reports compliance with his medicat
[2023-04-11 22:39] LABS: Microscopic, Urine URINE MICROSCOPIC (MICROSCOPIC)
--- NOTE | 2023-04-11 22:45 | ECG_ITS ---
APPROVED REPORT Exam: Resting ECG HR:121 bpm ECG Measurements Heart Rate 121 AXES NM 157 P 31 QRSd 100 QRS -57 QT 338 T 39 QTc 410 Conclusion SINUS TACHYCARDIA LEFT ANTERIOR FASCICULAR BLOCK [QRS AXIS <= -45, QR IN I, RS IN II] VOLTAGE CRITERIA FOR LVH [MEETS CRITERIA IN ONE OF: R(aVL), S(V1), R(V5), R(V5/V6)+S(V1)] POSSIBLE ANTERIOR MYOCARDIAL INFARCTION , PROBABLY OLD [30 ms Q WAVE IN V3/V4, OR R < 0.2 mV IN V4] ABNORMAL ECG UNCONFIRMED REPORT Electronically signed by : Clifton Kulkarni MD 04/12/2023 17:30:53
[2023-04-11 22:49] LABS: Alanine Aminotransferase 37 U/L (12-78); Albumin Level 4.2 g/dl (3.5-5.0); Albumin/Globulin Ratio 1.3 (1.1-1.8); Alkaline Phosphatase 93 U/L (38-126); Anion Gap 15.7 mEq/L (5-15); Aspartate Amino Transferase 39 U/L (17-59); Basophils % 0.3 % (0.1-2.0); Bilirubin,Total 0.5 mg/dl (0.2-1.3); Blood Urea Nitrogen 10 mg/dl (9-20); Calcium 9.2 mg/dl (8.4-10.2); Carbon Dioxide 26 mmol/L (22.0-30.0); Chloride 100 mmol/L (98-107); Creatinine Clearance Estimated 82 mL/min (50-200); Eosinophils # 0.1 K/mm3 (0.0-0.4); Eosinophils % 0.8 % (0.1-12.0); Estimated Glomerular Filt Rate 55 ml/min (>60); GFR (African American) 67 ML/MIN (>60); Globulin 3.2 g/dL (1.3-3.2); Glucose 174 mg/dl (74-100); Hematocrit 43.4 % (42.0-52.0); Hemoglobin 14.9 g/dL (14.1-18.0); Lymphocytes # 3.8 K/mm3 (0.7-4.5); Lymphocytes % 24.8 % (10-50); Mean Corpuscular HGB Conc 34.3 g/dL (31.8-35.4); Mean Corpuscular Hemoglobin 31.3 pg (27.0-31.2); Mean Corpuscular Volume 91.2 fl (80-94); Mean Platelet Volume 9.5 fl (7.4-10.4); Monocytes # 0.8 K/mm3 (0.1-1.0); Monocytes % 5.5 % (1.7-9.3); Neutrophils # 10.5 K/mm3 (1.8-7.8); Neutrophils % 68.6 % (37.0-80.0); Platelet Count 220 K/mm3 (142-424); Potassium 3.7 mmoL/L (3.5-5.1); Red Blood Count 4.76 M/mm3 (4.60-6.20); Red Cell Distribution Width 14.3 % (11.5-17.5); Sodium 138 mmol/L (136-145); Total Protein,Serum 7.4 g/dl (6.3-8.2); White Blood Count 15.3 K/mm3 (4.8-10.8)
[2023-04-11 22:50] LABS: Lactic Acid 1.9 mmol/L (0.7-2.1)
[2023-04-11 22:51] LABS: MANUAL DIFFERENTIAL MANUAL DIFFERENTIAL (MANUAL DIFF)
[2023-04-11 22:54] LABS: D-Dimer 0.96 ug/mL (0.0-0.5)
[2023-04-11 23:00] VITALS: BP 129/65; PULSE 122; RESP 19; O2SAT 90
[2023-04-11 23:04] LABS: NT Pro Brain Natriuretic Pep. 47.7 pg/mL (0-125)
[2023-04-11 23:06] LABS: Troponin I < 0.01 ng/ml (0.00-0.034)
[2023-04-11 23:06] LABS: Appearance,Urine CLEAR (Clear); Bilirubin,Urine Negative (Negative); Blood, Urine 2+ (Negative); Color,Urine YELLOW (Yellow); Glucose,Urine (UA) Negative (Negative); Ketones,Urine Negative (Negative); Leukocyte Esterase,Urine 3+ (Negative); Nitrate,Urine Negative (Negative); Protein,Urine Negative (Negative); Urobilinogen,Urine 0.2 EU/dl (0.2)
[2023-04-11 23:08] LABS: T4 (Thyroxine) 7.9 ug/dl (5.53-11.0)
[2023-04-11 23:22] LABS: Thyroid Stimulating Hormone 3.13 uIU/mL (0.465-4.68)
[2023-04-11 23:45] LABS: Eosinophils % 1 % (0-3); Lymphocytes % 23 % (10-50); Monocytes % 1 % (2-9); Neutrophils % 74 % (42-76); Total Cells Counted 100
[2023-04-11 23:46] LABS: Platelet Estimate Normal; RBC Morphology Normal
[2023-04-11 23:59] LABS: Bacteria,Urine Trace /lpf; RBC,Urine Occasional #/hpf (0-3); Squamous Epithelial Cell,Urine Occasional #/hpf (0-5); Transitional Epi Cells,Urine OCC #/lpf (0-3)
[2023-04-12] VITALS (15 sets, daily range): BP systolic 91–131; BP diastolic 44–81; PULSE 70–113; RESP 17–18; TEMP 36.6–37.2; O2SAT 90–95; BMI 33.1
--- NOTE | 2023-04-12 | CT_ITS ---
PROCEDURE INFORMATION: Exam: CT Neck With Contrast Exam date and time: 04/12/2023 1:07 AM Age: 68 years old Clinical indication: Abnormal findings; Abnormal radiologic study of neck; Additional info: Concern for paratracheal mass per radiology TECHNIQUE: Imaging protocol: Computed tomography of the neck with contrast. Radiation optimization: All CT scans at this facility use at least one of these dose optimization techniques: automated exposure control; mA and/or kV adjustment per patient size (includes targeted exams where dose is matched to clinical indication); or iterative reconstruction. Contrast material: ISOVUE; Contrast volume: 75 ml; Contrast route: IV; REPORTING DATA: Count of CT and Cardiac NM exams in prior 12 months: This patient has received 3 known CTs and 0 known cardiac nuclear medicine studies in the 12 months prior to the current study. COMPARISON: CR XR CHEST PORTABLE 04/11/2023 9:59 PM FINDINGS: Mastoid air cells: The visualized mastoid sinuses are clear Paranasal sinuses: The visualized portions of the sinuses are clear. Nasal cavity: There is prominent rightward nasal septal deviation with nasal septal spur formation. Pharynx: No significant tonsillar enlargement. Larynx: The epiglottis and aryepiglottic folds are preserved. Prevertebral and retropharyngeal spaces: No retropharyngeal or prevertebral fluid collections. Salivary glands: The visualized parotid glands and submandibular glands appear within range of normal. Thyroid: There is a large ovoid heterogeneous mass in the left thyroid bed measuring approximately 7.3 x 5.6 x 7.5 cm. This shows mixed attenuation with areas of enhancement and other areas of somewhat rounded and amorphous decreased attenuation. The findings are most likely thyroidal in etiology. There are a few peripheral calcifications along the anterior inferior aspect of the mass. This mass creates localized mass effect with [id number] tracheal deviation. This mass also extends into the left thoracic inlet creating mild mass effect upon the adjacent great vessels. The right thyroid lobe appears diminutive. Lymph nodes: No pathologic adenopathy. Trachea: No significant tracheal narrowing. Lungs: The visualized portions of the lung apices are normal. Bones/joints: The visualized cervical spine demonstrates mild discogenic and spondylitic degenerative changes at multiple levels. This is predominantly manifest by endplate discogenic degenerative changes and marginal osteophytes, most prominent at the C4 through C7 levels. There is mild anterior positioning of the mandibular condyles in relation to the the temporomandibular joints bilaterally. There is no evidence of acute fracture. Mild left parasagittal posterior bar/disc at the C3-C4 level produces mild left ventral effacement upon the thecal sac. Posterior central bar/disc at the C4-C5 level produces moderate ventral effacement upon the thecal sac and moderate central canal stenosis. Similar findings are present at C5-C6. There is a posterior and left parasagittal and neural foraminal bar/disc at the C6-C7 level resulting in mild central canal and marked leftward neural foraminal narrowing at this level. Soft tissues: No significant soft tissue swelling. No focal soft tissue hematomas. IMPRESSION: Large ovoid heterogeneous mass within the left thyroid bed suggestive of thyroid mass, resulting in localized mass effect and [id number] tracheal deviation. Correlate clinically and recommend additional evaluation. Differential includes both benign and malignant etiologies. Recommend ENT consultation. Multilevel discogenic and spondylitic degenerative changes of the cervical spine as described above wit
--- NOTE | 2023-04-12 | CT_ITS ---
PROCEDURE INFORMATION: Exam: CT Abdomen And Pelvis With Contrast Exam date and time: 04/12/2023 1:11 AM Age: 68 years old Clinical indication: Abdominal pain; Additional info: Abd pain, latham issues, sirs + TECHNIQUE: Imaging protocol: Computed tomography of the abdomen and pelvis with contrast. Radiation optimization: All CT scans at this facility use at least one of these dose optimization techniques: automated exposure control; mA and/or kV adjustment per patient size (includes targeted exams where dose is matched to clinical indication); or iterative reconstruction. Contrast material: ISOVUE; Contrast volume: 75 ml; Contrast route: IV; REPORTING DATA: Count of CT and Cardiac NM exams in prior 12 months: This patient has received 3 known CTs and 0 known cardiac nuclear medicine studies in the 12 months prior to the current study. COMPARISON: CT BONY PELVIS 08/25/2022 1:22 PM FINDINGS: Lungs: Left lower lobe pneumonic infiltrate as noted on the CT chest redemonstrated. Liver: Fatty liver changes noted. Liver otherwise unremarkable. Gallbladder and bile ducts: Normal. No calcified stones. No ductal dilation. Pancreas: Normal. No ductal dilation. Spleen: Normal. No splenomegaly. Adrenal glands: Normal. No mass. Kidneys and ureters: No obstructing stones or uropathy. Stomach and bowel: Unremarkable. No obstruction. No mucosal thickening. Appendix: Appendix is normal. No evidence of appendicitis. Intraperitoneal space: Unremarkable. No free air. No significant fluid collection. Vasculature: Unremarkable. No abdominal aortic aneurysm. Lymph nodes: Unremarkable. No enlarged lymph nodes. Urinary bladder: Bladder largely decompressed with a Latham catheter with associated bladder air. Reproductive: Unremarkable as visualized. Bones/joints: Unremarkable. No acute fracture. Soft tissues: Unremarkable. IMPRESSION: 1. Left lower lobe pneumonia redemonstrated. 2. Additional nonemergent findings as above.
--- NOTE | 2023-04-12 | CT_ITS ---
PROCEDURE INFORMATION: Exam: CTA Chest With Contrast Exam date and time: 04/12/2023 1:11 AM Age: 68 years old Clinical indication: Condition or disease; Lung condition and disease; Respiratory failure; Acute on chronic; Additional info: Acute on chronic resp failure TECHNIQUE: Imaging protocol: Computed tomographic angiography of the chest with contrast. Exam focused on the arteries. 3D rendering (Not supervised by radiologist): MIP and/or 3D reconstructed images were created by the technologist. Radiation optimization: All CT scans at this facility use at least one of these dose optimization techniques: automated exposure control; mA and/or kV adjustment per patient size (includes targeted exams where dose is matched to clinical indication); or iterative reconstruction. Contrast material: ISOVUE; Contrast volume: 75 ml; Contrast route: INTRAVENOUS (IV); REPORTING DATA: Count of CT and Cardiac NM exams in prior 12 months: This patient has received 3 known CTs and 0 known cardiac nuclear medicine studies in the 12 months prior to the current study. COMPARISON: CR XR CHEST PORTABLE 04/11/2023 9:59 PM FINDINGS: Pulmonary arteries: Normal. No pulmonary emboli. Aorta: Dilated ascending aorta measuring 4.4 cm. Advise clinical assessment and follow-up. 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 Lungs: A [id number] area of airspace opacification compatible with pneumonia noted involving most of the left lower lobe. A incidental 7 mm nodule noted in the posterolateral left upper lobe on axial image 32 of series 5. Lungs are otherwise clear. Pleural spaces: Unremarkable. No pneumothorax. No pleural effusion. Heart: Unremarkable. No cardiomegaly. No pericardial effusion. Lymph nodes: Multiple mildly enlarged left hilar and infrahilar lymph nodes are identified largest measuring up to 13 mm in short axis. No other mediastinal or hilar adenopathy. Bones/joints: Unremarkable. No acute fracture. Soft tissues: Unremarkable. IMPRESSION: 1. Large area of pneumonia involving the left lower lobe. Advise follow-up chest x-rays to ensure resolution. 2. Left hilar and infrahilar adenopathy presumably reactive. Advise follow-up CT chest in 3 months to ensure resolution of this finding. 3. Incidental 7 mm left upper lobe nodule that can be reassessed on follow-up CT in 3 months as well. 4. Dilated ascending aorta measuring 4.4 cm. Advise clinical assessment and follow-up. 5. 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 Further assessment with nonemergent ultrasound of the thyroid advised. Tissue sampling of this lesion may be indicated. COMMENTS: Consistent with the [employer]'s Incidental Findings Committee white paper (J Am Heather Radiol 2015): In patients aged 35 years and older with an incidental thyroid nodule equal to or greater than 1.[address], MRI or extrathyroidal US, further evaluation with dedicated thyroid US is recommended for patients with normal life expectancy and without comorbidities. For smaller nodules without suspicious features, no further evaluation or follow up is recommended.
--- NOTE | 2023-04-12 00:40 | PC.NURSE ---
Admitting notified for hospitalist OBS admission to Med/Surg 213 for COPD Exacerbation
--- NOTE | 2023-04-12 00:56 | PC.NURSE ---
PHONE REPORT RECEIVED FROM MENG RN/ED NURSE AT 0050. PATIENT IS A 68 YO MALE. ADM DIAGNOSIS IS UTI/COPD EXACERBATION/RUL PNEUMONIA.
--- NOTE | 2023-04-12 00:57 | PC.NURSE ---
report called to Anju PERALES
[2023-04-12 01:17] LABS: Coronavirus 19, PCR Not Detected (NotDetected); Influenza A, PCR Not Detected (NotDetected); Influenza B, PCR Not Detected (NotDetected)
--- NOTE | 2023-04-12 01:41 | EXP.HP ---
History of Present Illness *Admission Date: 04/12/23 *Reason for visit:: SOB *History of present illness: This is a 68yo male with PMHx significant for COPD on 2L NC at baseline, HTN, CAD, DM, CKD, CHF who presented to the ED via EMS with complaints of SOB and difficulty breathing, increased weakness and bleeding from latham catheter. catheter was reworked on the same day of discharged 03/30 for same issues. Patient is on Xarelto at home. Patient was hospitalized for pneumonia with exacerbation of his COPD. Recently discharge home with PO abx for pneumonia. Patient reported being taking his meds. Did follow up with PCP. Conditions had worsening over the last few days. patient called EMS. found to be hypoxic on arrival. Admitted for treatment and management. [facility] Disclaimer: The information contained in this section may have been updated after the patient was seen, as this information can be updated by other users. Medical History (Updated 04/12/23 @ 10:48 by Quinn Orozco MD) Abnormal EKG Acute urinary retention Atypical angina Chest pain Chronic respiratory failure with hypoxia Diabetes mellitus Edema Encounter for immunization Healthcare-associated pneumonia HTN (hypertension) Leg pain, bilateral Pneumonia SOB (shortness of breath) Tachycardia Surgical History H/O repair of rotator cuff Family History Other Diabetes Hypertension Stroke Social History (Updated 04/12/23 @ 02:12 by Lashonda Monge RN) Smoking Status: Never smoker alcohol intake: never substance use type: denies use current occupational status: unemployed Travel in the last 8 weeks: None household members: spouse housing: house caffeine: Yes Meds Home Medications and Allergies Home Medications Medication Instructions Recorded Confirmed Type insulin lispro 100 unit/mL 25 unit SQ AC Diabetes 12/26/21 04/12/23 History subcutaneous pen levothyroxine 175 mcg tablet 175 mcg PO DAILY Thyroid 12/26/21 04/12/23 History pregabalin 100 mg capsule 100 mg PO TID Pain 12/26/21 04/12/23 History tizanidine 4 mg tablet 4 mg PO HSP PRN Muscle Spasm #90 04/20/22 04/12/23 Rx tabs albuterol sulfate 90 mcg/actuation 2 puff inhalation Q4-6H PRN 07/31/23 11/09/23 Rx aerosol inhaler (Ventolin HFA) shortness of breath or wheezing #8.5 grams oxycodone-acetaminophen 10 mg-325 1 tab PO TIDP PRN Moderate Pain 03/07/23 04/12/23 History mg tablet (Scale Score 5-6) semaglutide 1 mg/dose (4 mg/3 mL) 1 mg SQ WEEKLY Diabetes 03/07/23 04/12/23 History subcutaneous pen injector (Ozempic) diazepam 5 mg tablet 5 mg PO TID Tremors #90 tabs 03/09/23 04/12/23 Rx insulin glargine 100 unit/mL (3 80 unit SQ DAILY Diabetes 03/09/23 04/12/23 History mL) subcutaneous pen (Basaglar KwikPen U-100 Insulin) allopurinol 300 mg tablet 300 mg PO DAILY Gout 03/29/23 04/12/23 History aripiprazole 5 mg tablet 5 mg PO DAILY Mood 03/29/23 04/12/23 History aspirin 81 mg chewable tablet 81 mg PO DAILY Heart Health 03/29/23 04/12/23 History atorvastatin 40 mg tablet 40 mg PO HS Cholesterol 03/29/23 04/12/23 History furosemide 40 mg tablet 40 mg PO DAILY Fluid 03/29/23 04/12/23 History metoprolol succinate 25 mg 25 mg PO DAILY High Blood Pressure 03/29/23 04/12/23 History tablet,extended release 24 hr (Toprol XL) nitroglycerin 0.4 mg sublingual 0.4 mg sublingual Q5MINP PRN chest 03/29/23 04/12/23 History tablet pain oxybutynin chloride 15 mg 15 mg PO DAILY Bladder 03/29/23 04/12/23 History tablet,extended release 24 hr pantoprazole 40 mg tablet,delayed 40 mg PO DAILY Acid Reflux 03/29/23 04/12/23 History release potassium chloride 20 mEq 20 meq PO DAILY Supplement 03/29/23 04/12/23 History tablet,extended release rivaroxaban 15 mg tablet 15 mg PO QPMWITHMEAL Blood 03/29/23 04/12/23 History thinner/AFIB spironolactone 25 mg ta
--- NOTE | 2023-04-12 01:50 | PC.NURSE ---
0150 PATIENT ARRIVED TO THE FLOOR VIA STRETCHER AND ADMITTED T0 ROOM 213.
--- NOTE | 2023-04-12 02:19 | PC.NURSE ---
pt arrived to the floor via wheelchair @01:56
[2023-04-12 05:41] LABS: POC Glucose,Bedside 306 (70-110)
[2023-04-12 06:18] LABS: Basophils % 0.2 % (0.1-2.0); Eosinophils % 0.2 % (0.1-12.0); Hematocrit 39.6 % (42.0-52.0); Hemoglobin 13.6 g/dL (14.1-18.0); Lymphocytes # 1.3 K/mm3 (0.7-4.5); Lymphocytes % 12.1 % (10-50); Mean Corpuscular HGB Conc 34.3 g/dL (31.8-35.4); Mean Corpuscular Hemoglobin 31.9 pg (27.0-31.2); Mean Corpuscular Volume 93.1 fl (80-94); Mean Platelet Volume 9.8 fl (7.4-10.4); Monocytes # 0.2 K/mm3 (0.1-1.0); Neutrophils % 85.5 % (37.0-80.0); Platelet Count 170 K/mm3 (142-424); Red Blood Count 4.25 M/mm3 (4.60-6.20); Red Cell Distribution Width 14.3 % (11.5-17.5); White Blood Count 10.5 K/mm3 (4.8-10.8)
[2023-04-12 06:39] LABS: Alanine Aminotransferase 40 U/L (12-78); Albumin Level 3.9 g/dl (3.5-5.0); Albumin/Globulin Ratio 1.3 (1.1-1.8); Alkaline Phosphatase 98 U/L (38-126); Anion Gap 18.4 mEq/L (5-15); Aspartate Amino Transferase 42 U/L (17-59); Bilirubin,Total 0.4 mg/dl (0.2-1.3); Blood Urea Nitrogen 13 mg/dl (9-20); Calcium 8.7 mg/dl (8.4-10.2); Carbon Dioxide 20 mmol/L (22.0-30.0); Chloride 100 mmol/L (98-107); Creatinine Clearance Estimated 85 mL/min (50-200); Estimated Glomerular Filt Rate 55 ml/min (>60); GFR (African American) 67 ML/MIN (>60); Glucose 344 mg/dl (74-100); Potassium 4.4 mmoL/L (3.5-5.1); Sodium 134 mmol/L (136-145); Total Protein,Serum 6.9 g/dl (6.3-8.2)
--- NOTE | 2023-04-12 07:53 | EXP.PHA.CONS ---
Pharmacy Consult Date: 04/12/23 Time: 07:54 Referring provider: rupinder Reason for Consult:: pharmacy consulted to initiate and manage vancomycin therapy for possible pneumonia Allergies Allergy/AdvReac Type Severity Reaction Status Date / Time No Known Allergies Allergy Verified 04/09/23 09:55 Home Medications Medication Instructions Recorded Confirmed Type insulin lispro 100 unit/mL 25 unit SQ AC Diabetes 12/26/21 04/12/23 History subcutaneous pen levothyroxine 175 mcg tablet 175 mcg PO DAILY Thyroid 12/26/21 04/12/23 History pregabalin 100 mg capsule 100 mg PO TID Pain 12/26/21 04/12/23 History tizanidine 4 mg tablet 4 mg PO HSP PRN Muscle Spasm #90 04/20/22 04/12/23 Rx tabs albuterol sulfate 90 mcg/actuation 2 puff inhalation Q4-6H PRN 01/01/23 04/12/23 Rx aerosol inhaler (Ventolin HFA) shortness of breath or wheezing #8.5 grams oxycodone-acetaminophen 10 mg-325 1 tab PO TIDP PRN Moderate Pain 03/07/23 04/12/23 History mg tablet (Scale Score 5-6) semaglutide 1 mg/dose (4 mg/3 mL) 1 mg SQ WEEKLY Diabetes 03/07/23 04/12/23 History subcutaneous pen injector (Ozempic) diazepam 5 mg tablet 5 mg PO TID Tremors #90 tabs 03/09/23 04/12/23 Rx insulin glargine 100 unit/mL (3 80 unit SQ DAILY Diabetes 03/09/23 04/12/23 History mL) subcutaneous pen (Basaglar KwikPen U-100 Insulin) allopurinol 300 mg tablet 300 mg PO DAILY Gout 03/29/23 04/12/23 History aripiprazole 5 mg tablet 5 mg PO DAILY Mood 03/29/23 04/12/23 History aspirin 81 mg chewable tablet 81 mg PO DAILY Heart Health 03/29/23 04/12/23 History atorvastatin 40 mg tablet 40 mg PO HS Cholesterol 03/29/23 04/12/23 History furosemide 40 mg tablet 40 mg PO DAILY Fluid 03/29/23 04/12/23 History metoprolol succinate 25 mg 25 mg PO DAILY High Blood Pressure 03/29/23 04/12/23 History tablet,extended release 24 hr (Toprol XL) nitroglycerin 0.4 mg sublingual 0.4 mg sublingual Q5MINP PRN chest 03/29/23 04/12/23 History tablet pain oxybutynin chloride 15 mg 15 mg PO DAILY Bladder 03/29/23 04/12/23 History tablet,extended release 24 hr pantoprazole 40 mg tablet,delayed 40 mg PO DAILY Acid Reflux 03/29/23 04/12/23 History release potassium chloride 20 mEq 20 meq PO DAILY Supplement 03/29/23 04/12/23 History tablet,extended release rivaroxaban 15 mg tablet 15 mg PO QPMWITHMEAL Blood 03/29/23 04/12/23 History thinner/AFIB spironolactone 25 mg tablet 25 mg PO BID Fluid 03/29/23 04/12/23 History topiramate 25 mg tablet (Topamax) 25 mg PO DAILY Migraines 03/29/23 04/12/23 History cetirizine 10 mg tablet 10 mg PO DAILY allergies 04/12/23 04/12/23 History escitalopram oxalate 10 mg tablet 10 mg PO DAILY Mood 04/12/23 04/12/23 History isosorbide mononitrate 60 mg 60 mg PO DAILY High Blood Pressure 04/12/23 04/12/23 History tablet,extended release 24 hr montelukast 10 mg tablet 10 mg PO DAILY allergies 04/12/23 04/12/23 History tamsulosin 0.4 mg capsule 0.8 mg PO HS Prostate 04/12/23 04/12/23 History topiramate 50 mg tablet 50 mg PO DAILY Migraines 04/12/23 04/12/23 History New Prescriptions to Start Prescriptions: Height: 1.8 m Weight: 107.501 kg Laboratory Results:: Laboratory Results - last 24 hr 04/11/23 21:37: VBG pH 7.40, VBG pCO2 33.3 L, VBG pO2 57.6 H, VBG HCO3 20.3 L, VBG Total CO2 21.3 L, VBG O2 Saturation 90.7 H, VBG Base Excess -4.4 L 04/11/23 22:25: WBC 15.3 H, RBC 4.76, Hgb 14.9, Hct 43.4, MCV 91.2, MCH 31.3 H, MCHC 34.3, RDW 14.3, Plt Count 220, MPV 9.5, Neut % (Auto) 68.6, Lymph % (Auto) 24.8, [place] % (Auto) 5.5, Eos % (Auto) 0.8, Baso % (Auto) 0.3, Neut # (Auto) 10.5 H, Lymph # (Auto) 3.8, [place] # (Auto) 0.8, Eos # (Auto) 0.1, Baso # (Auto) 0.0, Total Counted 100, Neutrophils % (Manual) 74, Lymphocytes % (Manual) 23, Monocytes % (Manual) 1 L, Eosinophils % (Manual) 1, Basophils % (Manual) 1.0, Platelet Estimate Normal, RBC Morphology Normal, D-Dimer 0.96 H, Sodium 138, Potassium 3.7, Chloride 100, Carbon Dioxide 26, Anion Gap 15.7
--- NOTE | 2023-04-12 08:34 | HMH.PHAINT1 ---
Pharmacy Intervention Comments: Med reconciliation completed using pharmacy fill record, past discharge summary from 03/30, and patient interview.
--- NOTE | 2023-04-12 08:54 | EXP.PULM.CON ---
History of Present Illness History of present illness: Ms. Nichole is a 68-year-old male last smoked more than 30 years ago with reported history of COPD, chronic hypoxic respiratory failure on 200 At baseline, CKD, CHF presented to the ER with worsening respiratory distress increased weakness found to be in hypoxic respiratory failure on arrival and pulmonary was called for further evaluation and management. [facility] Disclaimer: The information contained in this section may have been updated after the patient was seen, as this information can be updated by other users. Medical History (Updated 04/12/23 @ 10:48 by Quinn Orozco MD) Abnormal EKG Acute urinary retention Atypical angina Chest pain Chronic respiratory failure with hypoxia Diabetes mellitus Edema Encounter for immunization Healthcare-associated pneumonia HTN (hypertension) Leg pain, bilateral Pneumonia SOB (shortness of breath) Tachycardia Surgical History H/O repair of rotator cuff Family History Other Diabetes Hypertension Stroke Social History (Updated 04/12/23 @ 02:12 by Lashonda Monge RN) Smoking Status: Never smoker alcohol intake: never substance use type: denies use current occupational status: unemployed Travel in the last 8 weeks: None household members: spouse housing: house caffeine: Yes Review of Systems Constitutional Constitutional: Reports anorexia, Reports body ache(s) and Reports fatigue Eyes Eyes: Denies eye discharge, Denies dry eyes, Denies irritation and Denies itchy eyes ENT Ears, Nose, Mouth, and Throat: Denies epistaxis, Denies facial pain, Denies lip swelling and Denies throat swelling *Cardiovascular Cardiovascular: Reports dyspnea and Reports dyspnea on exertion *Respiratory Respiratory: Denies change in phlegm color, Reports chest congestion, Reports cough, Reports dyspnea, Reports dyspnea on exertion, Denies excessive phlegm production and Denies wheezing *Gastrointestinal Gastrointestinal: Denies abdominal pain, Denies belching and Denies cramping *Musculoskeletal Musculoskeletal: Reports back pain, Reports myalgias and Reports other (No small joint swelling or Pain) Psychiatric Psychiatric: Denies homicidal ideation and Denies suicidal ideation Endocrine Endocrine: Reports fatigue and Denies heat intolerance Hematologic/Lymphatic Hematologic/Lymphatic: Denies easy bleeding and Denies lymphadenopathy Allergic/Immunologic Allergic/Immunologic: Denies itchy eyes, Denies lip swelling, Denies throat swelling and Denies wheezing Pulmonology Exam Inpatient Vital signs and Labs for Last 24 Hours: Temp Pulse Resp BP Pulse Ox O2 Del Method O2 Flow Rate 98.4 F 101 H 18 115/73 93 L Nasal Cannula 2 04/12/23 07:52 04/12/23 07:52 04/12/23 07:52 04/12/23 07:52 04/12/23 07:52 04/12/23 07:52 04/12/23 07:52 Laboratory Results - last 24 hr 04/11/23 21:37: VBG pH 7.40, VBG pCO2 33.3 L, VBG pO2 57.6 H, VBG HCO3 20.3 L, VBG Total CO2 21.3 L, VBG O2 Saturation 90.7 H, VBG Base Excess -4.4 L 04/11/23 22:25: WBC 15.3 H, RBC 4.76, Hgb 14.9, Hct 43.4, MCV 91.2, MCH 31.3 H, MCHC 34.3, RDW 14.3, Plt Count 220, MPV 9.5, Neut % (Auto) 68.6, Lymph % (Auto) 24.8, [place] % (Auto) 5.5, Eos % (Auto) 0.8, Baso % (Auto) 0.3, Neut # (Auto) 10.5 H, Lymph # (Auto) 3.8, [place] # (Auto) 0.8, Eos # (Auto) 0.1, Baso # (Auto) 0.0, Total Counted 100, Neutrophils % (Manual) 74, Lymphocytes % (Manual) 23, Monocytes % (Manual) 1 L, Eosinophils % (Manual) 1, Basophils % (Manual) 1.0, Platelet Estimate Normal, RBC Morphology Normal, D-Dimer 0.96 H, Sodium 138, Potassium 3.7, Chloride 100, Carbon Dioxide 26, Anion Gap 15.7 H, BUN 10, Creatinine 1.30 H, Estimated Creat Clear 82, Estimated GFR 55 L, Est GFR ( Amer) 67, Glucose 174 H, Lactate 1.9, Calcium 9.2, Total Bilirubin 0.5, AST 39, ALT 37, Alkaline Phosphatase 93, Troponin I <
--- NOTE | 2023-04-12 09:55 | HMH.OTEV ---
OT Inpatient Evaluation Rehab OT IP Evaluation Start: 04/12/23 07:17 Freq: ONCE Status: Active Protocol: Document 04/12/23 09:49 [email or web address] (Rec: 04/12/23 09:55 [email or web address] [id number]) Rehab OT IP Assessment Subjective History This is a 68yo male with PMHx significant for COPD on 2L NC at baseline, HTN, CAD, DM, CKD , CHF who presented to the ED via EMS with complaints of SOB and difficulty breathing, increased weakness and bleeding from latham catheter. catheter was reworked on the same day of discharged 03/30 for same issues. Patient is on Xarelto at home. Patient was hospitalized for pneumonia with exacerbation of his COPD. Recently discharge home with PO abx for pneumonia. Patient reported being taking his meds . Did follow up with PCP. Conditions had worsening over the last few days. patient called EMS. found to be hypoxic on arrival. Admitted for treatment and management. Patient lives with in 1 story home with ramp to enter. Patient requires assistance from and sitter who for all ADLs and fx'l mobility. Sitter comes 4 hours a day to assist with patient's need to give the a break. Patient uses a power wheelchair to maneuver throughout the house. Subjective I can try to get up. Instructed Patient on proper hand and foot placement to complete bed mobility from supine->sit @ EOB requiring Mod A. Patient demonstrated good dynamic sitting balance @ EOB. Instructed Patient on SPT from EOB->recliner requiring Mod/Min A. Left Patient sitting upright in chair with needs met at end of session.
--- NOTE | 2023-04-12 10:07 | HMH.PTEV ---
Physical Therapy Evaluation Rehab PT IP Evaluation Start: 04/12/23 07:17 Freq: ONCE Status: Active Protocol: Document 04/12/23 09:58 RAMÍREZ (Rec: 04/12/23 10:07 PHOROBBIE [id number]) Subjective/History History History 68 yowm adm to [facility] with COPD exac. He has PMH of COPD, HTN, CAD, DM, CKD, CHF. He lives with his and has sitter suring the week and they both assist iris with all of his ADLs. He does not ambulates and uses a motorized w/c at baseline for all mobility. He uses oxygen at 2 L/min via NC at all times at home. No LORY the home. Subjective Subjective Pt reports generally feeling unwell, but no specific c/o. He agrees to mobility assessment. New diagnosis of cancer in past 12 No months? Rehab PT IP Eval Objective Appearance Patient Behavior Appropriate Patient Orientation Person,Place,Time Difficulty following instructions none Speech Pattern Clear Ambulation Patient Able to Ambulate No Balance Ability to Arise Able, uses arms to help Sitting Balance Steady, safe Standing Balance Unsteady Dynamic Sitting Balance Ability Fair Dynamic Standing Balance Ability Poor Transfers Bed Transfer Ability Minimal x 1 (25% assist) Chair Transfer Ability Moderate x 1 (50% assist) Sit to Stand Bed Transfer Ability Moderate x 1 (50% assist) Sit to Stand Chair Transfer Ability Moderate x 1 (50% assist) Rehab PT IP prob,goals,plan Problems Date of Evaluation: 04/12/23 PT IP Problems Bed Mobility,Transfers Rehab Potential Rehab Potential Good Plan PT Intervention Plan Bed Mobility,Transfers, Therapeutic Exercise PT Plan Frequency Daily Duration LOS Discharge Goals Bed Transfer Ability Minimal x 1 (25% assist) Sit to Stand Chair Transfer Ability Minimal x 2 (25% assist) Discharge Plan PT Discharge Plan Pt is appropriate to return home once medically stable for d/c. Recommend continuing home health therapy already established. Eval Complexity Eval Charge Codes 12511 - High Complexity P
[2023-04-12 10:58] LABS: POC Glucose,Bedside 375 (70-110)
[2023-04-12 11:43] LABS: Procalcitonin 0.156 ng/mL (0.0-2.0)
--- NOTE | 2023-04-12 11:52 | SW/DCPLANNER ---
I spoke w/ this patient regarding plans once medically stable for discharge. PT/OT evaluated patient and stated that he could return home w/ home health services. Patient stated that he is not interested in placement and would prefer to return home w/ [facility]. Once patient is medically stable for discharge I will fax updated patient information to Lilli w/ [facility]. Patient could possibly discharge home tomorrow.
[2023-04-12 16:19] LABS: POC Glucose,Bedside 358 (70-110)
--- NOTE | 2023-04-12 17:27 | PC.NURSE ---
A&OX4. TOLERATING 2LNC WELL WHICH HE WEARS AT HOME. PT HAS BEEN UP TO CHAIR PART OF SHIFT, BACK TO BED, X2 ASSIST. F/C PRESENT DRAINING BRIGHT YELLOW URINE. PT HAS C/O BACK PAIN, TX PER MAR, EFFECTIVENESS NOTED. NO OTHER NEEDS OR C/O NOTED AT THIS TIME. PT IS VERY PLEASANT. VSS.
--- NOTE | 2023-04-12 18:42 | PC.NURSE ---
SMALL AMOUNT OF BRIGHT RED BLEEDING NOTED TO TIP OF PENIS AT F/C INSERTION SITE WHEN CHANGING PT. CLEANED, NO MORE BLEEDING NOTED.
[2023-04-12 20:33] LABS: POC Glucose,Bedside 333 (70-110)
[2023-04-13] VITALS: BP 125/62; PULSE 72; PULSE 80; RESP 18; TEMP 36.6; O2SAT 94
[2023-04-13 04:00] VITALS: BP 114/62; PULSE 68; PULSE 70; RESP 20; TEMP 36.6; O2SAT 95; BMI 33.3
--- NOTE | 2023-04-13 04:03 | PC.NURSE ---
Patient remains on home oxygen 2.5LNC. Wheezes in bilateral bases. VS stable and no other changes noted. No bloody discharge noted around catheter.
[2023-04-13 06:33] LABS: Basophils % 0.2 % (0.1-2.0); Eosinophils % 0.2 % (0.1-12.0); Hematocrit 36.6 % (42.0-52.0); Hemoglobin 12.5 g/dL (14.1-18.0); Lymphocytes # 1.8 K/mm3 (0.7-4.5); Lymphocytes % 17.9 % (10-50); Mean Corpuscular Hemoglobin 32.1 pg (27.0-31.2); Mean Corpuscular Volume 94.3 fl (80-94); Mean Platelet Volume 9.4 fl (7.4-10.4); Monocytes # 0.6 K/mm3 (0.1-1.0); Monocytes % 5.9 % (1.7-9.3); Neutrophils # 7.5 K/mm3 (1.8-7.8); Neutrophils % 75.9 % (37.0-80.0); Platelet Count 171 K/mm3 (142-424); Red Blood Count 3.89 M/mm3 (4.60-6.20); Red Cell Distribution Width 14.5 % (11.5-17.5); White Blood Count 9.8 K/mm3 (4.8-10.8)
[2023-04-13 06:37] LABS: POC Glucose,Bedside 270 (70-110)
[2023-04-13 06:52] LABS: Alanine Aminotransferase 28 U/L (12-78); Albumin Level 3.6 g/dl (3.5-5.0); Albumin/Globulin Ratio 1.3 (1.1-1.8); Alkaline Phosphatase 77 U/L (38-126); Anion Gap 13.1 mEq/L (5-15); Aspartate Amino Transferase 31 U/L (17-59); Bilirubin,Total 0.3 mg/dl (0.2-1.3); Blood Urea Nitrogen 19 mg/dl (9-20); Calcium 8.5 mg/dl (8.4-10.2); Carbon Dioxide 24 mmol/L (22.0-30.0); Chloride 103 mmol/L (98-107); Creatinine Clearance Estimated 92 mL/min (50-200); Estimated Glomerular Filt Rate 61 ml/min (>60); GFR (African American) 73 ML/MIN (>60); Globulin 2.7 g/dL (1.3-3.2); Glucose 287 mg/dl (74-100); Magnesium 1.8 mg/dl (1.6-2.3); Potassium 4.1 mmoL/L (3.5-5.1); Sodium 136 mmol/L (136-145); Total Protein,Serum 6.3 g/dl (6.3-8.2)
[2023-04-13 08:00] VITALS: BP 125/61; PULSE 70; PULSE 74; RESP 17; TEMP 36.5; O2SAT 96
--- NOTE | 2023-04-13 08:48 | PC.NURSE ---
COURTESY NOTE: morning round completed on pt. pt denies any assistance needs. no new pt requests at this time. Josemanuel SRNA
[2023-04-13 09:17] LABS: POC Glucose,Bedside 247 (70-110)
--- NOTE | 2023-04-13 09:20 | EXP.PULM.PN ---
Subjective *Date: 04/13/23 *Time: 10:42 Interval history: No acute respiratory vents overnight. Patient denies any new respiratory complaints. Pulmonology Exam Inpatient Vital signs and Labs for Last 24 Hours: Temp Pulse Resp BP Pulse Ox O2 Del Method O2 Flow Rate 97.7 F 74 17 125/61 96 Nasal Cannula 2 04/13/23 08:00 04/13/23 08:00 04/13/23 08:00 04/13/23 08:00 04/13/23 08:00 04/13/23 08:00 04/13/23 08:00 Laboratory Results - last 24 hr 04/12/23 10:47: POC Glucose 375 H* 04/12/23 10:53: Procalcitonin 0.156 04/12/23 16:03: POC Glucose 358 H* 04/12/23 20:26: POC Glucose 333 H* 04/13/23 05:23: WBC 9.8, RBC 3.89 L, Hgb 12.5 L, Hct 36.6 L, MCV 94.3 H, MCH 32.1 H, MCHC 34.0, RDW 14.5, Plt Count 171, MPV 9.4, Neut % (Auto) 75.9, Lymph % (Auto) 17.9, [place] % (Auto) 5.9, Eos % (Auto) 0.2, Baso % (Auto) 0.2, Neut # (Auto) 7.5, Lymph # (Auto) 1.8, [place] # (Auto) 0.6, Eos # (Auto) 0.0, Baso # (Auto) 0.0, Sodium 136, Potassium 4.1, Chloride 103, Carbon Dioxide 24, Anion Gap 13.1, BUN 19 D, Creatinine 1.20, Estimated Creat Clear 92, Estimated GFR 61, Est GFR ( Amer) 73, Glucose 287 H, Calcium 8.5, Magnesium 1.8, Total Bilirubin 0.3, AST 31 D, ALT 28 D, Alkaline Phosphatase 77, Total Protein 6.3, Albumin 3.6, Globulin 2.7, Albumin/Globulin Ratio 1.3 04/13/23 06:28: POC Glucose 270 H 04/13/23 08:59: POC Glucose 247 H I & O for Labs for Last 24 Hours: Intake & Output 04/10/23 04/11/23 04/12/23 11/10/23 23:59 23:59 23:59 23:59 Intake Total 2234 / 2234 648 / 648 Output Total 3700 / 4900 2600 / 2600 Balance -1466 / -2666 -1951 / -1951 Weight 230 lb 237 lb 237 lb 11.2 oz Constitutional: Present moderate distress Head: Present normocephalic and atraumatic ENT: Present normal exam, normal oropharynx and mucous membranes moist Neck: Present full ROM Respiratory: Present able to speak in complete sentences; Absent prolonged expiratory phase, respiratory distress or wheezes Cardiac: Present S1/S2, Tachycardia and radial pulses present GI: Present soft and distention; Absent tenderness or guarding Skin: Present intact; Absent cyanosis or jaundice Neuro: Present alert, awake and oriented x 3 Extremities: Present normal inspection; Absent clubbing or cyanosis Psychiatric: Present normal affect and cooperative Assessment and Plan *Assessment and plan (1) Chronic respiratory failure with hypoxia: Status: Acute Category: Medical Code(s): J96.11 - Chronic respiratory failure with hypoxia (2) Pneumonia: Status: Acute Qualifiers: Laterality: left Lung location: lower lobe of lung Pneumonia type: due to unspecified organism Qualified Code(s): J18.9 - Pneumonia, unspecified organism Category: Medical Code(s): J18.9 - Pneumonia, unspecified organism Plan Ms. Nichole is a 68-year-old male last smoked more than 30 years ago with reported history of COPD, chronic hypoxic respiratory failure on 200 At baseline, CKD, CHF presented to the ER with worsening respiratory distress increased weakness found to be in hypoxic respiratory failure on arrival and pulmonary was called for further evaluation and management. Patient was recently in the hospital for chest pain admitted on 03/29/23 , thought to be pleuritic secondary to left lower lobe airspace disease, received ceftriaxone and azithromycin and discharged on 03/30/23 cefdinir and azithromycin complete a total of 5-day course CTA upon admission, left lower lobe airspace disease. Left hilar adenopathy. Patient also noted to have large left paratracheal mass 7 cm in size with mass effect on the trachea. Afebrile. Hemodynamically stable with leukocytosis upon admission, improving. COVID-19 and flu PCR negative. Patient was initiated on vancomycin and cefepime upon admission. On examination patient does not appear to be in any respiratory distress. Admits to chronic cough with scant productive phlegm at baseline, no significant worsenin
[2023-04-13 12:00] VITALS: PULSE 70
[2023-04-13 12:25] LABS: POC Glucose,Bedside 235 (70-110)
--- NOTE | 2023-04-13 13:03 | EXP.DC.SUM ---
General Admission date:: 04/12/23 Discharge date: 04/13/23 HPI HPI HPI: This is a 68yo male with PMHx significant for COPD on 2L NC at baseline, HTN, CAD, DM, CKD, CHF who presented to the ED via EMS with complaints of SOB and difficulty breathing, increased weakness and bleeding from latham catheter. catheter was reworked on the same day of discharged 03/30 for same issues. Patient is on Xarelto at home. Patient was hospitalized for pneumonia with exacerbation of his COPD. Recently discharge home with PO abx for pneumonia. Patient reported being taking his meds. Did follow up with PCP. Conditions had worsening over the last few days. patient called EMS. found to be hypoxic on arrival. Admitted for treatment and management. Hospital Course Hospital Course Hospital Course: 68yo male with PMHx significant for COPD on 2L NC at baseline, HTN, CAD, DM, CKD, heart failure with preserved ejection fraction, progressive paralysis, dependent on his and a private sitter for ADLs who presented to the ED via EMS with complaints of worsening SOB after recently discharged form this institution for [facility] P[facility]. Patient notes that upon awakening this morning, he was feeling very fatigued and short of breath. Also reported bleeding form his latham. . Upon arrival patient was found tachycardia, elevated WBC. CTA was obtained. Discussion with ER provider was made for readmission. Patient at baseline oxygen. Pulmonology was consulted. Stable for discharge home to complete antibiotic course. Strong concern for high risk of readmissions given patient social determinants, debility, equivalent status to being a group home patient and significant nursing needs along with poorly controlled diabetes at home leading to increased risk for infections. Problems addressed during hospitalization as follows: -left lower pneumonia: -COPD exacerbation Confirmed clinically and radiologically. Had increased work of breathing and moderate leukocytosis on admission. Quickly returned to baseline oxygen requirement of 2 L. Was initiated on vancomycin and Zosyn. Pulmonology was consulted. Recommend transitioning to levofloxacin to complete a 7-day course of antibiotics total. Continue DuoNebs at home. Patient in no acute distress and at baseline level of function. Cough is chronic. Pulmonology also recommends incentive spirometry and flutter valve. Regarding patient's lymphadenopathy likely reactive. Patient is not willing to pursue any invasive procedures/bronchoscopy at this point of time. We will continue to monitor with repeat CT chest in 3 months for the noted 7 mm nodule and lymphadenopathy left hilar - Urinary retention with latham catheter in place . Urinary catheter to remain in place. -Uncontrolled Diabetes Mellitus: last A1c 8.7. Continue home regimen with mealtime insulin at discharge. Defer further adjustments to PCP Continue other home medic patients can,, GERD, BPH mood. Significant social determinants of health given patient's stability, functional paraplegia, dependence upon others for all of his ADLs. This significantly complicates his condition. 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 Home health consult placed on discharge Exam Data for Last 24 hours Vital signs and Labs for Last 24 Hours: Temp Pulse Resp BP Pulse Ox O2 Del Method O2 Flow Rate 97.7 F 74 17 125/61 96 Nasal Cannula 2 04/13/23 08:00 04/13/23 08:00 04/13/23 08:00 04/13/23 08:00 04/13/23 08:00 04/13/23 08:00 04/13/23 08:00 Laboratory Results - last 24 hr 04/12/23 16:03: POC Glucose 358 H* 04/12/23 20:26: POC Glucose 333 H* 04/13/23 05:23: WBC 9.8, RBC 3.89 L, Hgb 12.5 L, Hct 36.6 L, MCV 94.3 H, MCH 32.1 H, MCHC 34.0, RDW 14.5, Plt Count 171, MPV 9.4, Neut % (Auto) 75.9, Lymph % (Auto) 17.9, [place] % (Auto) 5.9, Eos % (Auto) 0.2, Baso % (Auto) 0.2, Neut # (Auto) 7.5, Lymph # (Auto
[2023-04-13 13:56] VITALS: BMI 33.3
--- NOTE | 2023-04-16 14:24 | SW/DCPLANNER ---
Follow up phone call w/ patient: daughter stated that patient is doing well at home at this time. Daughter stated that home health has not contacted him at this time. I will follow up w/ Lilli from [facility] regarding home health services. Daughter stated that patient did not have any further needs/questions at this time.
--- NOTE | 2023-04-18 15:46 | PC.NURSE ---
urine culture results enterococcus faecalis, pt admitted to floor, given vancomycin and levaquin.
== END 2023-04-13 15:10 | disposition home health service (06) ==
LOC: ER 23:25 → 2ND 04-12 00:45
PROVIDERS: Internal Medicine Pulmonary Disease; Nurse Practitioner Family; Admitting Provider Internal Medicine Adolescent Medicine; Emergency Provider Emergency Medicine; PCP Emergency Medicine; Visit Provider Internal Medicine Adolescent Medicine
DX: J44.1 Chronic obstructive pulmonary disease with (acute) exacerbation (principal); J96.11 Chronic respiratory failure with hypoxia; J18.9 Pneumonia, unspecified organism; G83.4 Cauda equina syndrome; Z97.8 Presence of other specified devices; I50.22 Chronic systolic (congestive) heart failure; E78.49 Other hyperlipidemia; J44.9 Chronic obstructive pulmonary disease, unspecified; E11.69 Type 2 diabetes mellitus with other specified complication; I11.0 Hypertensive heart disease with heart failure; Z79.01 Long term (current) use of anticoagulants; Z79.4 Long term (current) use of insulin; Z99.81 Dependence on supplemental oxygen; F44.4 Conversion disorder with motor symptom or deficit; R33.9 Retention of urine, unspecified
CPT/HCPCS: 36415; 70491; 71045; 71275; 74177; 80053; 81001; 82803; 82962; 83605; 83735; 83880; 84145; 84436; 84443; 84484; 85007; 85025; 85378; 87040; 87081; 87086; 87636; 93005; 97110; 97163; 97165; 97530; 99291; G0378; J2543; Q9967

== ENCOUNTER 2023-04-25 09:36 | Emergency (ER) | payer MEDICARE, OTHER, SELFPAY ==
[2023-04-25 09:38] VITALS: BP 117/75; PULSE 80; RESP 19; TEMP 36.5; O2SAT 98; BMI 39.0
--- NOTE | 2023-04-25 09:52 | PC.NURSE ---
BLADDER SCAN 418MLS
[2023-04-25 10:01] VITALS: BP 117/57; PULSE 70; O2SAT 97
[2023-04-25 10:15] VITALS: BP 121/64; PULSE 77; O2SAT 99
--- NOTE | 2023-04-25 10:27 | HMH.EDGENADL ---
Discharge Plan Disposition Patient Disposition: Home, Self-Care Condition: Good Prescriptions Prescriptions: No Action albuterol sulfate [Ventolin HFA] 90 mcg/actuation HFA aerosol inhaler 2 puff IH Q4-6H PRN (Reason: shortness of breath or wheezing) Qty: 8.5 10RF allopurinol 300 mg tablet 300 mg PO DAILY 90 Days Qty: 90 3RF atorvastatin 40 mg tablet 40 mg PO HS 90 Days Qty: 90 2RF diazepam 5 mg tablet 5 mg PO TID 90 Days Qty: 270 2RF escitalopram oxalate 10 mg tablet 10 mg PO DAILY 90 Days Qty: 90 2RF furosemide 40 mg tablet 40 mg PO DAILY 90 Days Qty: 90 2RF isosorbide mononitrate 60 mg tablet extended release 24 hr 60 mg PO DAILY 90 Days Qty: 90 2RF metoprolol succinate [Toprol XL] 25 mg tablet extended release 24 hr 25 mg PO DAILY 90 Days Qty: 90 0RF montelukast 10 mg tablet 10 mg PO DAILY 90 Days Qty: 90 2RF nitroglycerin 0.4 mg tablet, sublingual 0.4 mg SUBLINGUAL Q5MINP PRN (Reason: chest pain) Qty: 90 0RF oxybutynin chloride 15 mg tablet extended release 24hr 15 mg PO DAILY 90 Days Qty: 90 2RF potassium chloride 20 mEq tablet extended release 20 meq PO DAILY 90 Days Qty: 90 2RF pregabalin 100 mg capsule 100 mg PO TID 30 Days Qty: 90 3RF rivaroxaban 15 mg tablet 15 mg PO QPMWITHMEAL 90 Days Qty: 90 2RF Ozempic 1 mg/dose (4 mg/3 mL) pen injector 1 mg SQ WEEKLY 90 Days Qty: 9.75 3RF spironolactone 25 mg tablet 25 mg PO BID 90 Days Qty: 180 3RF tamsulosin 0.4 mg capsule 0.8 mg PO HS 90 Days Qty: 180 3RF tizanidine 4 mg tablet 4 mg PO HSP PRN (Reason: Muscle Spasm) Qty: 90 3RF topiramate [Topamax] 25 mg tablet 25 mg PO DAILY 90 Days Qty: 90 3RF Rx Instructions: Takes with 50 mg tablet for a total of 75 mg daily insulin glargine [Basaglrocky LoredoPen U-100 Insulin] 100 unit/mL (3 mL) insulin pen 80 unit SQ DAILY 60 Days Qty: 48 2RF insulin lispro 100 unit/mL insulin pen 25 unit SQ AC 60 Days Qty: 15 2RF budesonide 90 mcg/actuation aerosol powdr breath activated 1 inh inhalation BID 30 Days Qty: 1 4RF oxycodone 10 mg tablet 10 mg PO Q4H PRN (Reason: chronic pain) 30 Days Qty: 120 0RF levothyroxine 175 mcg tablet 175 mcg PO DAILY 30 Days Qty: 30 3RF pantoprazole 40 mg tablet,delayed release (DR/EC) 40 mg PO DAILY aspirin 81 mg tablet,chewable 81 mg PO DAILY aripiprazole 5 mg tablet 5 mg PO DAILY cetirizine 10 mg tablet 10 mg PO DAILY Patient Comments: TAKE 1 TABLET BY MOUTH DAILY topiramate 50 mg tablet 50 mg PO DAILY Patient Comments: TAKE 1 TABLET BY MOUTH DAILY FOR MIGRAINE Rx Instructions: Takes with 25 mg tablet for a total of 75 mg daily levofloxacin 750 mg tablet 750 mg PO DAILY 5 Days Qty: 5 0RF Rx Instructions: start on 04/14/23, complete full course Referrals Follow up/Referrals: Paulo Brody DO [Primary Care Provider] - See instructions Activity Restrictions/Add. Instructions Additional Instructions/Restrictions: You were evaluated in the emergency department today. Please call your urologist and let them know that you were not able to urinate after Latham catheter removal, so you had to have a new one placed today. Exercise good Latham catheter care at home. Return to the emergency department for new or worsening symptoms. Clinical Impressions Clinical Impression: Acute urinary retention Instructions Patient Instructions: How to Care for Your Latham Catheter -- Male Discharge ED Provider: Estephania Campa General Adult HPI General Chief complaint: Urogenital-Male Stated complaint: NEEDS CATHETER Time Seen by Provider: 04/25/23 10:03 Mode of Arrival: Wheelchair Source of Information: Patient and Spouse Limitations: No Limitations Description of Symptoms (Recalled from ER Triage Doc. by RN): Pt c/o inability to urinate and requesting latham cath. Stahasmukh he has been having difficulty voiding
[2023-04-25 10:30] VITALS: BP 119/67; PULSE 77; O2SAT 99
[2023-04-25 10:39] LABS: Basophils # 0.1 K/mm3 (0-0.2); Basophils % 0.6 % (0.1-2.0); Eosinophils # 0.1 K/mm3 (0.0-0.4); Eosinophils % 1.7 % (0.1-12.0); Hematocrit 42.8 % (42.0-52.0); Hemoglobin 14.1 g/dL (14.1-18.0); Lymphocytes # 1.9 K/mm3 (0.7-4.5); Lymphocytes % 23.1 % (10-50); Mean Corpuscular Hemoglobin 31.1 pg (27.0-31.2); Mean Corpuscular Volume 94.4 fl (80-94); Mean Platelet Volume 9.1 fl (7.4-10.4); Monocytes # 0.6 K/mm3 (0.1-1.0); Monocytes % 7.1 % (1.7-9.3); Neutrophils # 5.5 K/mm3 (1.8-7.8); Neutrophils % 67.5 % (37.0-80.0); Platelet Count 154 K/mm3 (142-424); Red Blood Count 4.53 M/mm3 (4.60-6.20); Red Cell Distribution Width 14.7 % (11.5-17.5); White Blood Count 8.1 K/mm3 (4.8-10.8)
[2023-04-25 10:41] LABS: Blood Urea Nitrogen 15 mg/dl (9-20); Calcium 8.5 mg/dl (8.4-10.2); Carbon Dioxide 27 mmol/L (22.0-30.0); Chloride 95 mmol/L (98-107); Creatinine Clearance Estimated 100 mL/min (50-200); Estimated Glomerular Filt Rate 55 ml/min (>60); GFR (African American) 67 ML/MIN (>60); Glucose 223 mg/dl (74-100); Sodium 132 mmol/L (136-145)
[2023-04-25 10:45] LABS: Microscopic, Urine URINE MICROSCOPIC (MICROSCOPIC)
[2023-04-25 10:48] LABS: Appearance,Urine CLEAR (Clear); Bilirubin,Urine Negative (Negative); Blood, Urine TRACE-I (Negative); Color,Urine YELLOW (Yellow); Glucose,Urine (UA) Negative (Negative); Ketones,Urine Negative (Negative); Leukocyte Esterase,Urine Negative (Negative); Nitrate,Urine Negative (Negative); Protein,Urine Negative (Negative); Specific Gravity, Urine <= 1.005 (1.005-1.030); Urobilinogen,Urine 0.2 EU/dl (0.2)
[2023-04-25 10:49] LABS: Bacteria,Urine Trace /lpf; RBC,Urine Occasional #/hpf (0-3); Squamous Epithelial Cell,Urine Occasional #/hpf (0-5)
[2023-04-25 11:00] VITALS: BP 118/74; BP 123/74; PULSE 75; PULSE 82; RESP 18; RESP 20; TEMP 36.5; O2SAT 97; O2SAT 98
== END 2023-04-25 11:02 | disposition home or self-care (01) ==
PROVIDERS: Emergency Provider Emergency Medicine; PCP Internal Medicine
DX: R33.9 Retention of urine, unspecified (principal); E87.1 Hypo-osmolality and hyponatremia; E11.65 Type 2 diabetes mellitus with hyperglycemia; E66.9 Obesity, unspecified; I11.0 Hypertensive heart disease with heart failure; I50.9 Heart failure, unspecified; J44.9 Chronic obstructive pulmonary disease, unspecified; N18.2 Chronic kidney disease, stage 2 (mild); E78.5 Hyperlipidemia, unspecified; Z79.4 Long term (current) use of insulin; Z79.85 Long-term (current) use of injectable non-insulin antidiabetic drugs; Z87.891 Personal history of nicotine dependence
CPT/HCPCS: 51702; 80048; 81001; 85025; 87086; 99283

== ENCOUNTER 2023-05-11 22:20 | Observation (INO) | payer MEDICARE, OTHER, SELFPAY ==
[2023-05-11 22:20] VITALS: BP 108/74; PULSE 79; RESP 20; TEMP 36.5; O2SAT 94; BMI 33.3
[2023-05-11 22:30] VITALS: BP 117/69; PULSE 73; RESP 16; O2SAT 97
--- NOTE | 2023-05-11 22:41 | ECG_ITS ---
APPROVED REPORT Exam: Resting ECG HR:76 bpm ECG Measurements Heart Rate 76 AXES VA 185 P 19 QRSd 101 QRS -29 QT 354 T 67 QTc 384 Conclusion SINUS RHYTHM VOLTAGE CRITERIA FOR LVH [MEETS CRITERIA IN ONE OF: R(aVL), S(V1), R(V5), R(V5/V6)+S(V1)] POSSIBLE ANTERIOR MYOCARDIAL INFARCTION , OF INDETERMINATE AGE [30 ms Q WAVE IN V3/V4, OR R < 0.2 mV IN V4] ABNORMAL ECG UNCONFIRMED REPORT Electronically signed by : Clifton Kulkarni MD 05/12/2023 09:56:44
--- NOTE | 2023-05-11 22:45 | HMH.EDGENADL ---
Discharge Plan Disposition Patient Disposition: Admitted Condition: Good Prescriptions Prescriptions: No Action albuterol sulfate [Ventolin HFA] 90 mcg/actuation HFA aerosol inhaler 2 puff IH Q4-6H PRN (Reason: shortness of breath or wheezing) Qty: 8.5 10RF allopurinol 300 mg tablet 300 mg PO DAILY 90 Days Qty: 90 3RF atorvastatin 40 mg tablet 40 mg PO HS 90 Days Qty: 90 2RF diazepam 5 mg tablet 5 mg PO TID 90 Days Qty: 270 2RF escitalopram oxalate 10 mg tablet 10 mg PO DAILY 90 Days Qty: 90 2RF furosemide 40 mg tablet 40 mg PO DAILY 90 Days Qty: 90 2RF isosorbide mononitrate 60 mg tablet extended release 24 hr 60 mg PO DAILY 90 Days Qty: 90 2RF metoprolol succinate [Toprol XL] 25 mg tablet extended release 24 hr 25 mg PO DAILY 90 Days Qty: 90 0RF montelukast 10 mg tablet 10 mg PO DAILY 90 Days Qty: 90 2RF nitroglycerin 0.4 mg tablet, sublingual 0.4 mg SUBLINGUAL Q5MINP PRN (Reason: chest pain) Qty: 90 0RF oxybutynin chloride 15 mg tablet extended release 24hr 15 mg PO DAILY 90 Days Qty: 90 2RF potassium chloride 20 mEq tablet extended release 20 meq PO DAILY 90 Days Qty: 90 2RF pregabalin 100 mg capsule 100 mg PO TID 30 Days Qty: 90 3RF rivaroxaban 15 mg tablet 15 mg PO QPMWITHMEAL 90 Days Qty: 90 2RF Ozempic 1 mg/dose (4 mg/3 mL) pen injector 1 mg SQ WEEKLY 90 Days Qty: 9.75 3RF spironolactone 25 mg tablet 25 mg PO BID 90 Days Qty: 180 3RF tamsulosin 0.4 mg capsule 0.8 mg PO HS 90 Days Qty: 180 3RF tizanidine 4 mg tablet 4 mg PO HSP PRN (Reason: Muscle Spasm) Qty: 90 3RF topiramate [Topamax] 25 mg tablet 25 mg PO DAILY 90 Days Qty: 90 3RF Rx Instructions: Takes with 50 mg tablet for a total of 75 mg daily insulin glargine [Basaglar FacundoPen U-100 Insulin] 100 unit/mL (3 mL) insulin pen 80 unit SQ DAILY 60 Days Qty: 48 2RF insulin lispro 100 unit/mL insulin pen 25 unit SQ AC 60 Days Qty: 15 2RF budesonide 90 mcg/actuation aerosol powdr breath activated 1 inh inhalation BID 30 Days Qty: 1 4RF levothyroxine 175 mcg tablet 175 mcg PO DAILY 30 Days Qty: 30 3RF oxycodone 10 mg tablet 10 mg PO Q4H PRN (Reason: chronic pain) 30 Days Qty: 120 0RF pantoprazole 40 mg tablet,delayed release (DR/EC) 40 mg PO DAILY aspirin 81 mg tablet,chewable 81 mg PO DAILY aripiprazole 5 mg tablet 5 mg PO DAILY cetirizine 10 mg tablet 10 mg PO DAILY Patient Comments: TAKE 1 TABLET BY MOUTH DAILY topiramate 50 mg tablet 50 mg PO DAILY Patient Comments: TAKE 1 TABLET BY MOUTH DAILY FOR MIGRAINE Rx Instructions: Takes with 25 mg tablet for a total of 75 mg daily levofloxacin 750 mg tablet 750 mg PO DAILY 5 Days Qty: 5 0RF Rx Instructions: start on 04/14/23, complete full course Referrals Follow up/Referrals: Paulo Brody DO [Primary Care Provider] - See instructions Clinical Impressions Clinical Impression: Acute exacerbation of chronic obstructive pulmonary disease Discharge ED Provider: Mercedes Cage General Adult HPI <Natanael Moran MD - Last Filed: 05/11/23 23:06> General Chief complaint: Shortness of Breath/Dyspnea Stated complaint: Shortness of Breath Time Seen by Provider: 05/11/23 22:35 Mode of Arrival: EMS Source of Information: Patient and EMS Limitations: No Limitations Description of Symptoms (Recalled from ER Triage Doc. by RN): Patient states that he has beeb admitted here twice for pneumonia recently and for the last two days he has had greater shortness of breath and painful deep breathing. History of Present Illness HPI narrative: 68-year-old male, history of insulin-dependent diabetes, CKD, recent admission last month for pneumonia, COPD on 2 L nasal cannula baseline, hypertension, hyperlipidemia, chronic indwelling Rodriguez presents with worsening chest pain back pain and shortness of breath over the last cou
--- NOTE | 2023-05-11 22:47 | XR_ITS ---
PROCEDURE INFORMATION: Exam: XR Chest Exam date and time: 05/11/2023 10:50 PM Age: 68 years old Clinical indication: Shortness of breath; Additional info: SOA TECHNIQUE: Imaging protocol: Radiologic exam of the chest. Views: 1 view. Total images: 1 COMPARISON: CT ANGIO CHEST PE PROTOCOL 04/12/2023 1:11 AM FINDINGS: Tubes, catheters and devices: EKG leads are present. Lungs: Fine linear right basilar atelectasis. Mild residual left retrocardiac infiltrate. No focal airspace consolidation or vascular congestion. No interstitial edema. Pleural spaces: Unremarkable. No pleural effusion. No pneumothorax. Heart/Mediastinum: Left paratracheal mass compatible with chest CT April 12, 2023, likely thyroid mass. Normal heart size. No mediastinal widening. Bones/joints: Partially visualized moderate degenerative changes thoracic spine. Other findings: Patient rotation to the left. IMPRESSION: 1. Mild residual left retrocardiac infiltrate, improved from chest CT April 12, 2023. 2. Minor right basilar atelectasis 3. Left paratracheal mass, likely of thyroid origin.
[2023-05-11 22:54] LABS: Basophils # 0.1 K/mm3 (0-0.2); Basophils % 0.6 % (0.1-2.0); Eosinophils # 0.3 K/mm3 (0.0-0.4); Eosinophils % 3.2 % (0.1-12.0); Hematocrit 42.8 % (42.0-52.0); Hemoglobin 14.2 g/dL (14.1-18.0); Lymphocytes # 2.6 K/mm3 (0.7-4.5); Lymphocytes % 32.2 % (10-50); Mean Corpuscular HGB Conc 33.2 g/dL (31.8-35.4); Mean Corpuscular Hemoglobin 30.3 pg (27.0-31.2); Monocytes # 0.7 K/mm3 (0.1-1.0); Monocytes % 8.5 % (1.7-9.3); Neutrophils # 4.4 K/mm3 (1.8-7.8); Neutrophils % 55.5 % (37.0-80.0); Platelet Count 180 K/mm3 (142-424); Red Cell Distribution Width 14.4 % (11.5-17.5); White Blood Count 7.9 K/mm3 (4.8-10.8)
[2023-05-11 23:00] VITALS: BP 109/70; RESP 19
[2023-05-11 23:00] LABS: Alanine Aminotransferase 33 U/L (12-78); Albumin Level 4.3 g/dl (3.5-5.0); Albumin/Globulin Ratio 1.3 (1.1-1.8); Alkaline Phosphatase 95 U/L (38-126); Anion Gap 13.5 mEq/L (5-15); Aspartate Amino Transferase 35 U/L (17-59); Bilirubin,Total 0.3 mg/dl (0.2-1.3); Blood Urea Nitrogen 15 mg/dl (9-20); Calcium 8.3 mg/dl (8.4-10.2); Carbon Dioxide 27 mmol/L (22.0-30.0); Chloride 96 mmol/L (98-107); Creatinine Clearance Estimated 83 mL/min (50-200); Estimated Glomerular Filt Rate 55 ml/min (>60); GFR (African American) 67 ML/MIN (>60); Globulin 3.3 g/dL (1.3-3.2); Glucose 206 mg/dl (74-100); Potassium 3.5 mmoL/L (3.5-5.1); Sodium 133 mmol/L (136-145); Total Protein,Serum 7.6 g/dl (6.3-8.2)
[2023-05-11 23:07] LABS: VBG Base Excess -2.4 mmol/L (-2.4-2.3); VBG HCO3 23.6 mmol/L (23-30); VBG Oxygen Saturation 80.1 % (50-70); VBG PH 7.33 mmol/L (7.31-7.41)
[2023-05-11 23:21] LABS: Lactic Acid 1.7 mmol/L (0.7-2.1)
[2023-05-11 23:29] VITALS: PULSE 72; PULSE 92
[2023-05-11 23:30] VITALS: BP 112/83; PULSE 86; RESP 20; O2SAT 95
[2023-05-11 23:32] LABS: NT Pro Brain Natriuretic Pep. < 20.0 pg/mL (0-125)
[2023-05-11 23:33] LABS: Troponin I < 0.01 ng/ml (0.00-0.034)
--- NOTE | 2023-05-11 23:43 | PC.NURSE ---
Patient resting in bed, breathing even and unlabored. no needs at this time. offered a blanket for comfort, patient refused.
[2023-05-12] VITALS (15 sets, daily range): BP systolic 105–150; BP diastolic 55–82; PULSE 95–117; RESP 15–22; TEMP 36.4–36.8; O2SAT 91–96; BMI 33.4
--- NOTE | 2023-05-12 01:10 | PC.NURSE ---
I spoke with household appliance installer, Dora PERALES, to request a bed for admission.
--- NOTE | 2023-05-12 01:24 | PC.NURSE ---
report called to nereida villela
--- NOTE | 2023-05-12 01:26 | PC.NURSE ---
0120 received phome report from Elisabeth RN/ED nurse. Patient is a 68 yo male. Admission diagnosis: COPD exacerbation.
--- NOTE | 2023-05-12 01:41 | PC.NURSE ---
PT ARRIVED TO FLOOR AT 1:31 AM
--- NOTE | 2023-05-12 01:55 | PC.NURSE ---
PATIENT ARRIVED TO THE FLOOR VIA STRETCHER AT 0120. FSBS 257. ORIENTED TO ROOM AND EQUIPEMENT.
[2023-05-12 02:01] LABS: POC Glucose,Bedside 257 (70-110)
[2023-05-12 02:12] LABS: Coronavirus 19, PCR Not Detected (NotDetected); Influenza A, PCR Not Detected (NotDetected); Influenza B, PCR Not Detected (NotDetected)
--- NOTE | 2023-05-12 02:13 | EXP.HP ---
History of Present Illness *Admission Date: 05/12/23 *Reason for visit:: shortness of breath *History of present illness: This is a 68-year-old male with past medical history of insulin-dependent diabetes, CKD, recurrent admission for shortness of breath and pneumonia, COPD on 2 L nasal cannula at baseline, hypertension, hyperlipidemia, chronic indwelling Rodriguez catheter who presents emergency department today with complaints of shortness of breath and chest pain. He reports increased work of breathing over the last several days and states that he was unable to finish his antibiotics for his prior hospitalization for pneumonia. He reports pain with breathing. Denies fever or any further sick contacts. Emergency Department workup significant for increased work of breathing with wheezing on arrival to the emergency department. He currently is on his 2 L nasal cannula. Blood gas within normal limits. Creatinine 1.3 which is patient's baseline. Chest x-ray with some improvement and retrocardiac opacity as compared to prior imaging. Patient was treated with DuoNebs and steroids in the emergency department. He was attempted to be discharged home but had further increased work of breathing when reevaluated by ED provider. Given this, he will be admitted to hospital service for further evaluation. [facility] Disclaimer: The information contained in this section may have been updated after the patient was seen, as this information can be updated by other users. Medical History Abnormal EKG Acute urinary retention Atypical angina Chest pain Chronic respiratory failure with hypoxia CKD (chronic kidney disease) stage 2, GFR 60-89 ml/min Diabetes mellitus Edema Encounter for immunization Healthcare-associated pneumonia HTN (hypertension) Leg pain, bilateral Pneumonia SOB (shortness of breath) Tachycardia Surgical History H/O repair of rotator cuff Family History Other Diabetes Hypertension Stroke Social History (Updated 05/12/23 @ 02:31 by Carla Zee RN) Smoking Status: Former smoker tobacco type: cigarettes alcohol intake: never substance use type: denies use current occupational status: unemployed Travel in the last 8 weeks: None household members: spouse housing: house caffeine: Yes Review of Systems Constitutional Constitutional: Reports as per HPI Eyes Eyes: Reports as per HPI ENT Ears, Nose, Mouth, and Throat: Reports as per HPI *Cardiovascular Cardiovascular: Reports as per HPI *Respiratory Respiratory: Reports as per HPI *Gastrointestinal Gastrointestinal: Reports as per HPI *Genitourinary Genitourinary: Reports as per HPI *Musculoskeletal Musculoskeletal: Reports as per HPI *Neurologic Neurologic: Reports as per HPI Meds Home Medications and Allergies Home Medications Medication Instructions Recorded Confirmed Type aripiprazole 5 mg tablet 5 mg PO DAILY Mood 03/29/23 05/11/23 History aspirin 81 mg chewable tablet 81 mg PO DAILY Heart Health 03/29/23 05/11/23 History pantoprazole 40 mg tablet,delayed 40 mg PO DAILY Acid Reflux 03/29/23 05/11/23 History release topiramate 50 mg tablet 50 mg PO DAILY Migraines 04/12/23 05/11/23 History allopurinol 300 mg tablet 300 mg PO DAILY Gout 90 days #90 04/17/23 05/11/23 Rx tabs atorvastatin 40 mg tablet 40 mg PO HS Cholesterol 90 days 04/17/23 05/11/23 Rx #90 tabs budesonide 90 mcg/actuation breath 1 inh inhalation BID 30 days #1 ea 04/17/23 05/11/23 Rx activated powder inhaler diazepam 5 mg tablet 5 mg PO TID Tremors 90 days #270 04/17/23 05/11/23 Rx tabs escitalopram oxalate 10 mg tablet 10 mg PO DAILY Mood 90 days #90 04/17/23 05/11/23 Rx tabs furosemide 40 mg tablet 40 mg PO DAILY Fluid 90 days #90 04/17/23 05/11/23 Rx tabs insulin lispro
[2023-05-12 03:22] LABS: Microscopic, Urine URINE MICROSCOPIC (MICROSCOPIC)
[2023-05-12 03:25] LABS: Troponin I < 0.01 ng/ml (0.00-0.034)
[2023-05-12 03:36] LABS: Appearance,Urine CLEAR (Clear); Bilirubin,Urine Negative (Negative); Blood, Urine 1+ (Negative); Color,Urine YELLOW (Yellow); Glucose,Urine (UA) 1+ (Negative); Ketones,Urine Negative (Negative); Leukocyte Esterase,Urine 2+ (Negative); Nitrate,Urine Negative (Negative); PH,Urine 5.5 (5.0-8.5); Protein,Urine Negative (Negative); Urobilinogen,Urine 0.2 EU/dl (0.2)
--- NOTE | 2023-05-12 03:39 | PC.NURSE ---
PATIENT C/O SOA ON EXERTION. CHEST WALL TENDER TO PALPATION. O2 AT 2LNC. HAS RECEIVED BOTH ROCEPHINE AND AZITHROMYCIN IVAB. BLOOD SUGAR RUNNING IN 200s. F/C TO BED SIDE DRAINAGE, UOP ADEQUATE.
[2023-05-12 03:45] LABS: Bacteria,Urine Trace /lpf
[2023-05-12 05:09] LABS: POC Glucose,Bedside 375 (70-110)
[2023-05-12 07:49] LABS: Chloride 96 mmol/L (98-107); Potassium 3.5 mmoL/L (3.5-5.1); Sodium 134 mmol/L (136-145)
[2023-05-12 07:51] LABS: Blood Urea Nitrogen 18 mg/dl (9-20); Creatinine Clearance Estimated 84 mL/min (50-200); Estimated Glomerular Filt Rate 55 ml/min (>60); GFR (African American) 67 ML/MIN (>60)
[2023-05-12 07:52] LABS: Anion Gap 26.5 mEq/L (5-15); Calcium 8.4 mg/dl (8.4-10.2); Carbon Dioxide 15 mmol/L (22.0-30.0); Chol/HDL Ratio 3.1 (1-3.5); Cholesterol 96 mg/dl (140-200); Glucose 393 mg/dl (74-100); HDL Cholesterol 31 mg/dl (40-60); Triglycerides 62 mg/dl (30-150); VLDL Cholesterol 12 mg/dL (0-40)
[2023-05-12 07:54] LABS: Basophils % 0.1 % (0.1-2.0); Eosinophils % 0.2 % (0.1-12.0); Hematocrit 42.2 % (42.0-52.0); Hemoglobin 13.7 g/dL (14.1-18.0); Lymphocytes # 0.8 K/mm3 (0.7-4.5); Lymphocytes % 7.7 % (10-50); Mean Corpuscular HGB Conc 32.4 g/dL (31.8-35.4); Mean Corpuscular Hemoglobin 30.9 pg (27.0-31.2); Mean Corpuscular Volume 95.5 fl (80-94); Mean Platelet Volume 10.2 fl (7.4-10.4); Monocytes # 0.2 K/mm3 (0.1-1.0); Monocytes % 1.9 % (1.7-9.3); Neutrophils # 9.1 K/mm3 (1.8-7.8); Neutrophils % 90.2 % (37.0-80.0); Platelet Count 160 K/mm3 (142-424); Red Blood Count 4.42 M/mm3 (4.60-6.20); Red Cell Distribution Width 14.1 % (11.5-17.5); White Blood Count 10.1 K/mm3 (4.8-10.8)
[2023-05-12 08:03] LABS: Direct LDL Cholesterol 56.06 mg/dL (100-129)
[2023-05-12 08:09] LABS: MANUAL DIFFERENTIAL MANUAL DIFFERENTIAL (MANUAL DIFF)
[2023-05-12 08:48] LABS: Lymphocytes % 5 % (10-50); Monocytes % 2 % (2-9); Neutrophils % 93 % (42-76); Platelet Estimate Normal; RBC Morphology Normal; Total Cells Counted 100
[2023-05-12 10:49] LABS: POC Glucose,Bedside 366 (70-110)
[2023-05-12 16:20] LABS: POC Glucose,Bedside 406 (70-110)
--- NOTE | 2023-05-12 16:48 | PC.NURSE ---
Patient A&Ox4 with VSS. Patient continues to have high glucose. Patient noncompliant with ordered diet as family members have brought outside sources of food. Patient educated about proper diet and continues to eat outside sources of food from family.
--- NOTE | 2023-05-12 21:41 | PC.NURSE ---
FSBS 406. J AN WEINER NOTIFIED. ORDER TO GIVE 20 UNITS OF S/S HUMALOG AND REPEAT FSBS AT 2200.
--- NOTE | 2023-05-12 22:14 | PC.NURSE ---
PATIENT WAS EATING ANOTHER BAG OF MCDONALDS DELIVERED BY [employer]. INFORMED PATIENT THAT HE DID NOT NEED TO EAT THE FASTFOOD HIS BLD SUGAR 406. PATIENT NON COMPLIANT. CONTINUES TO EATFOODS ON TOP OF HOSPITAL DIET.
[2023-05-12 23:43] LABS: POC Glucose,Bedside 406 (70-110)
[2023-05-12 23:43] LABS: POC Glucose,Bedside 353 (70-110)
[2023-05-13] VITALS (9 sets, daily range): BP systolic 114–132; BP diastolic 63–78; PULSE 86–112; RESP 18–24; TEMP 36.5–37.2; O2SAT 93–96; BMI 33.6
[2023-05-13 12:25] LABS: POC Glucose,Bedside 274 (70-110)
--- NOTE | 2023-05-13 16:15 | EXP.PN ---
Subjective *Date: 05/13/23 *Time: 16:15 Interval history: patient was seen and evaluated at the bedside. denies chest pain, shortness of breath, nausea, vomiting, abdominal pain. Patient does not have any complaints at this time. feels better overall Exam Data for Last 24 hours Vital signs and Labs for Last 24 Hours: Temp Pulse Resp BP Pulse Ox O2 Del Method O2 Flow Rate 98.0 F 91 H 18 129/69 95 Nasal Cannula 3 05/13/23 15:06 05/13/23 15:06 05/13/23 15:06 05/13/23 15:06 05/13/23 15:06 05/13/23 15:06 05/13/23 15:06 Laboratory Results - last 24 hr 05/12/23 16:05: POC Glucose 406 H* 05/12/23 20:20: POC Glucose 406 H* 05/12/23 22:40: POC Glucose 353 H* 05/13/23 12:19: POC Glucose 274 H I & O for Last 24 hours: Intake & Output 05/10/23 05/11/23 05/12/23 05/13/23 23:59 23:59 23:59 23:59 Intake Total 1650 / 2620 1450 / 1450 Output Total 6400 / 6400 5000 / 5000 Balance -4750 / -3780 -3550 / -3550 Weight 105.233 kg 105.959 kg 106.64 kg Constitutional Constitutional: no acute distress *Routine HEENT Exam Head: Present normocephalic Eye: Present EOMI and PERRL ENT: Present mucous membranes moist *Routine Neck Exam Neck: Present supple; Absent lymphadenopathy *Routine Respiratory Exam Respiratory: Present CTA bilaterally *Routine Cardiovascular Exam Cardiovascular: Present RRR *Routine Abdominal Exam Abdominal: Present soft and normoactive bowel sounds; Absent tenderness *Routine Extremities Exam Extremities: Absent cyanosis, clubbing or edema *Routine Skin Exam Skin: Present warm; Absent rash *Routine Neurological Exam Neurological: Present alert and oriented X3 Assessment and Plan *Assessment and plan (1) Acute exacerbation of chronic obstructive pulmonary disease: Status: Acute Category: Medical Code(s): J44.1 - Chronic obstructive pulmonary disease with (acute) exacerbation (2) Chronic pain: Problem Comment: This patient has multiple reasons to have chronic pain including, diabetic peripheral polyneuropathy, cauda equina syndrome, and other issues. We will continue his oxycodone but I would prefer to do this without the acetaminophen. I will give him up to 4 tablets/day of oxycodone 10 mg. Goal is to keep him comfortable as best as possible. He is on diazepam as well and this is greatly concerning but we will discuss it at his next visit. Status: Acute Qualifiers: Chronic pain type: other chronic pain Qualified Code(s): G89.29 - Other chronic pain Category: Medical Code(s): G89.29 - Other chronic pain (3) Diabetes mellitus type 2 in obese: Problem Comment: Patient's A1c was excellent. We will continue his glargine and lispro insulins. Status: Acute Category: Medical Code(s): E11.69 - Type 2 diabetes mellitus with other specified complication; E66.9 - Obesity, unspecified (4) CKD (chronic kidney disease) stage 2, GFR 60-89 ml/min: Problem Comment: Last labs revealed a GFR of 61. He continues to be stage II mild chronic kidney disease probably related to his diabetes and hypertension. Status: Chronic Category: Medical Code(s): N18.2 - Chronic kidney disease, stage 2 (mild) (5) Chronic respiratory failure with hypoxia: Status: Acute Category: Medical Code(s): J96.11 - Chronic respiratory failure with hypoxia (6) HLD (hyperlipidemia): Problem Comment: Patient is on atorvastatin. Last lipid panel does reveal a total triglyceride of 108 total cholesterol 139 LDL of 78 VLDL of 22 HDL of 39. This really is good panel and I would continue atorvastatin 40. Status: Chronic Qualifiers: Hyperlipidemia type: other hyperlipidemia Qualified Code(s): E78.49 - Other hyperlipidemia Category: Medical Code(s): E78.5 - Hyperlipidemia, unspecified Plan COPD exacerbation T2DM Chronic pain Urinary retention with chronic Rodriguez cat
[2023-05-13 17:18] LABS: POC Glucose,Bedside 271 (70-110)
--- NOTE | 2023-05-13 18:35 | PC.NURSE ---
Patient A&ox4 and VSS. Patient continues to tolerate IV abx. Patient continues to have good intake and urine output.
[2023-05-14 04:00] VITALS: BP 122/76; PULSE 73; RESP 22; TEMP 36.6; O2SAT 97; BMI 34.1
--- NOTE | 2023-05-14 04:47 | PC.NURSE ---
VITAL SIGNS STABLE. AFEBRILE. HAS BEEN MORE COMPLIANT WITH DIABETIC DIET. CONTINUES TO REQUIRE S/S INSULIN FOR BLD SUGAR ELEVATIO. VALIUM HAS HELPED WITH TREMORS. NO C/O BACK PAIN AFTER RECEIVING OXYCODONE. DEXACOM INTACT TO [facility].LUNGS/C/D BILAT. NO COUGH. NO RESP DISTRESS. F/C INTACT TO [facility], URINE CLEAR YELLOW.
[2023-05-14 06:30] VITALS: PULSE 63; PULSE 65; O2SAT 92
[2023-05-14 07:12] LABS: Chloride 95 mmol/L (98-107)
[2023-05-14 07:13] LABS: Potassium 3.8 mmoL/L (3.5-5.1); Sodium 133 mmol/L (136-145)
[2023-05-14 07:16] LABS: Anion Gap 11.8 mEq/L (5-15); Basophils % 0.1 % (0.1-2.0); Blood Urea Nitrogen 28 mg/dl (9-20); Calcium 8.6 mg/dl (8.4-10.2); Carbon Dioxide 30 mmol/L (22.0-30.0); Creatinine Clearance Estimated 93 mL/min (50-200); Eosinophils % 0.3 % (0.1-12.0); Estimated Glomerular Filt Rate 61 ml/min (>60); GFR (African American) 73 ML/MIN (>60); Glucose 226 mg/dl (74-100); Hematocrit 41.5 % (42.0-52.0); Hemoglobin 13.6 g/dL (14.1-18.0); Lymphocytes # 2.4 K/mm3 (0.7-4.5); Lymphocytes % 20.8 % (10-50); Mean Corpuscular HGB Conc 32.8 g/dL (31.8-35.4); Mean Corpuscular Hemoglobin 30.7 pg (27.0-31.2); Mean Corpuscular Volume 93.6 fl (80-94); Mean Platelet Volume 9.7 fl (7.4-10.4); Monocytes # 0.7 K/mm3 (0.1-1.0); Monocytes % 6.4 % (1.7-9.3); Neutrophils # 8.3 K/mm3 (1.8-7.8); Neutrophils % 72.3 % (37.0-80.0); Platelet Count 173 K/mm3 (142-424); Red Blood Count 4.43 M/mm3 (4.60-6.20); Red Cell Distribution Width 14.4 % (11.5-17.5); White Blood Count 11.4 K/mm3 (4.8-10.8)
[2023-05-14 07:40] VITALS: BP 123/67; PULSE 82; RESP 18; TEMP 36.4; O2SAT 97
[2023-05-14 11:49] VITALS: BP 122/65; PULSE 74; RESP 16; TEMP 36.9; O2SAT 97
[2023-05-14 11:50] VITALS: PULSE 72; PULSE 76; O2SAT 94
--- NOTE | 2023-05-14 12:12 | EXP.DC.SUM ---
General Admission date:: 05/12/23 Discharge date: 05/14/23 HPI HPI HPI: This is a 68-year-old male with past medical history of insulin-dependent diabetes, CKD, recurrent admission for shortness of breath and pneumonia, COPD on 2 L nasal cannula at baseline, hypertension, hyperlipidemia, chronic indwelling Rodriguez catheter who presents emergency department today with complaints of shortness of breath and chest pain. He reports increased work of breathing over the last several days and states that he was unable to finish his antibiotics for his prior hospitalization for pneumonia. He reports pain with breathing. Denies fever or any further sick contacts. Emergency Department workup significant for increased work of breathing with wheezing on arrival to the emergency department. He currently is on his 2 L nasal cannula. Blood gas within normal limits. Creatinine 1.3 which is patient's baseline. Chest x-ray with some improvement and retrocardiac opacity as compared to prior imaging. Patient was treated with DuoNebs and steroids in the emergency department. He was attempted to be discharged home but had further increased work of breathing when reevaluated by ED provider. Given this, he will be admitted to hospital service for further evaluation. Hospital Course Hospital Course Hospital Course: Patient was seen and evaluated at the bedside on the day of discharge. Patient is stable for discharge. Patient wishes to be discharged. All patient questions were answered and patient was given time to ask questions. Patient was discharged in stable condition. Patient understands that she can return to ER in case of any sudden changes in health. Total time spent on DC - 38 mins COPD exacerbation - improved T2DM Chronic pain Urinary retention with chronic Rodriguez catheter HTN HLD Plan Continue corticosteroids and nebulizer treatments DC on PO abx and follow up with PCP in 1 week Continue home chronic Rodriguez catheter continue home medicationn DVT Continue home Xarelto Full Code Exam Data for Last 24 hours Vital signs and Labs for Last 24 Hours: Temp Pulse Resp BP Pulse Ox O2 Del Method O2 Flow Rate 98.4 F 72 16 122/65 94 L Nasal Cannula 2 05/14/23 11:49 05/14/23 11:50 05/14/23 11:49 05/14/23 11:49 05/14/23 11:50 05/14/23 11:50 05/14/23 11:50 FiO2 28 05/13/23 18:36 Laboratory Results - last 24 hr 05/12/23 02:00: RSV Nasal Swab Negative 05/13/23 12:19: POC Glucose 274 H 05/13/23 17:10: POC Glucose 271 H 05/14/23 06:29: WBC 11.4 H, RBC 4.43 L, Hgb 13.6 L, Hct 41.5 L, MCV 93.6, MCH 30.7, MCHC 32.8, RDW 14.4, Plt Count 173, MPV 9.7, Neut % (Auto) 72.3, Lymph % (Auto) 20.8, [place] % (Auto) 6.4, Eos % (Auto) 0.3, Baso % (Auto) 0.1, Neut # (Auto) 8.3 H, Lymph # (Auto) 2.4, [place] # (Auto) 0.7, Eos # (Auto) 0.0, Baso # (Auto) 0.0, Sodium 133 L, Potassium 3.8, Chloride 95 L, Carbon Dioxide 30, Anion Gap 11.8, BUN 28 H D, Creatinine 1.20, Estimated Creat Clear 93, Estimated GFR 61, Est GFR ( Amer) 73, Glucose 226 H, Calcium 8.6 I & O for Last 24 hours: Intake & Output 05/11/23 05/12/23 05/13/23 05/14/23 23:59 23:59 23:59 23:59 Intake Total 1650 / 2620 1690 / 2410 1070 / 1070 Output Total 6400 / 6400 6300 / 6300 4325 / 4325 Balance -4750 / -3780 -4610 / -3890 -3255 / -3255 Weight 105.233 kg 105.959 kg 106.64 kg 108.046 kg Constitutional Constitutional: no acute distress *Routine HEENT Exam Head: Present normocephalic Eye: Present EOMI and PERRL ENT: Present mucous membranes moist *Routine Neck Exam Neck: Present supple; Absent lymphadenopathy *Routine Respiratory Exam Respiratory: Present CTA bilaterally *Routine Cardiovascular Exam Cardiovascular: Present RRR *Routine Abdominal Exam Abdominal: Present soft and normoactive bowel sounds; Absent tenderness *Routine Extremities Exam Extremities: Absent cyanosis, clubbing or edema *Routine Skin Exam Skin: Present warm; Absent rash *Routine Neurolog
--- NOTE | 2023-05-14 13:04 | PC.NURSE ---
pt called to inform that pt is being discharged, pt stated 30 minutes away
--- NOTE | 2023-05-15 14:51 | CARE MANAGER ---
Addendum entered by Alley Velasquez 05/17/23 10:43: Patient information has been faxed to Lilli sullivan/ [facility] to resume services. Original Note: Called and spoke with patient's daughter in regards to recent discharge. She states that patient is doing well, no questions or concerns at time of call. He has started new medication and is aware of scheduled f/u appt.
[2023-05-16 11:24] LABS: POC Glucose,Bedside 220 (70-110)
[2023-05-16 11:24] LABS: POC Glucose,Bedside 207 (70-110)
[2023-05-16 11:24] LABS: POC Glucose,Bedside 271 (70-110)
[2023-05-16 11:24] LABS: POC Glucose,Bedside 350 (70-110)
== END 2023-05-14 14:05 | disposition home or self-care (01) ==
LOC: ER 05-12 01:10 → 2ND 05-12 02:12
PROVIDERS: Emergency Medicine; Internal Medicine; Nurse Practitioner Acute Care; Admitting Provider Internal Medicine Adolescent Medicine; Emergency Provider Emergency Medicine; PCP Internal Medicine; Visit Provider Internal Medicine Adolescent Medicine
DX: J44.1 Chronic obstructive pulmonary disease with (acute) exacerbation (principal); G89.29 Other chronic pain; E66.9 Obesity, unspecified; N18.2 Chronic kidney disease, stage 2 (mild); J96.11 Chronic respiratory failure with hypoxia; E78.49 Other hyperlipidemia; E11.22 Type 2 diabetes mellitus with diabetic chronic kidney disease; Z99.81 Dependence on supplemental oxygen; Z87.891 Personal history of nicotine dependence; E11.42 Type 2 diabetes mellitus with diabetic polyneuropathy; E11.69 Type 2 diabetes mellitus with other specified complication; Z68.34 Body mass index [BMI] 34.0-34.9, adult; E78.5 Hyperlipidemia, unspecified; R33.9 Retention of urine, unspecified
CPT/HCPCS: 36415; 71045; 80048; 80053; 80061; 81001; 82803; 82962; 83605; 83735; 83880; 84484; 85007; 85025; 87040; 87086; 87636; 87807; 93005; 94640; 94761; 99285; G0378; J0456; J0696; J3475

== ENCOUNTER 2023-05-30 19:21 | Emergency (ER) | payer MEDICARE, OTHER, SELFPAY ==
[2023-05-30] VITALS (8 sets, daily range): BP systolic 111–115; BP diastolic 60–71; PULSE 86–97; RESP 13–20; TEMP 36.8; O2SAT 95–99; BMI 31.5
--- NOTE | 2023-05-30 20:16 | XR_ITS ---
PROCEDURE INFORMATION: Exam: XR Chest Exam date and time: 05/30/2023 8:17 PM Age: 68 years old Clinical indication: Dyspnea TECHNIQUE: Imaging protocol: Radiologic exam of the chest. Views: 1 view. COMPARISON: 1. CR XR CHEST PORTABLE 05/11/2023 10:[address] ANGIO CHEST PE PROTOCOL 04/12/2023 1:11 AM FINDINGS: Lungs: Normal. Pleural spaces: Normal No pleural effusion. No pneumothorax. 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 Vasculature: Atherosclerotic thoracic aorta. Bones/joints: Moderate degenerative change of the thoracic spine. IMPRESSION: No acute findings.
--- NOTE | 2023-05-30 20:17 | HMH.EDGENADL ---
Discharge Plan Disposition Chief Complaint: Shortness of Breath/Dyspnea Prescriptions Prescriptions: No Action allopurinol 300 mg tablet 300 mg PO DAILY 90 Days Qty: 90 3RF atorvastatin 40 mg tablet 40 mg PO HS 90 Days Qty: 90 2RF diazepam 5 mg tablet 5 mg PO TID 90 Days Qty: 270 2RF escitalopram oxalate 10 mg tablet 10 mg PO DAILY 90 Days Qty: 90 2RF isosorbide mononitrate 60 mg tablet extended release 24 hr 60 mg PO DAILY 90 Days Qty: 90 2RF metoprolol succinate [Toprol XL] 25 mg tablet extended release 24 hr 25 mg PO DAILY 90 Days Qty: 90 0RF montelukast 10 mg tablet 10 mg PO DAILY 90 Days Qty: 90 2RF nitroglycerin 0.4 mg tablet, sublingual 0.4 mg SUBLINGUAL Q5MINP PRN (Reason: chest pain) Qty: 90 0RF oxybutynin chloride 15 mg tablet extended release 24hr 15 mg PO DAILY 90 Days Qty: 90 2RF potassium chloride 20 mEq tablet extended release 20 meq PO DAILY 90 Days Qty: 90 2RF pregabalin 100 mg capsule 100 mg PO TID 30 Days Qty: 90 3RF rivaroxaban 15 mg tablet 15 mg PO QPMWITHMEAL 90 Days Qty: 90 2RF Ozempic 1 mg/dose (4 mg/3 mL) pen injector 1 mg SQ WEEKLY 90 Days Qty: 9.75 3RF spironolactone 25 mg tablet 25 mg PO BID 90 Days Qty: 180 3RF tamsulosin 0.4 mg capsule 0.8 mg PO HS 90 Days Qty: 180 3RF tizanidine 4 mg tablet 4 mg PO HSP PRN (Reason: Muscle Spasm) Qty: 90 3RF topiramate [Topamax] 25 mg tablet 25 mg PO DAILY 90 Days Qty: 90 3RF Rx Instructions: Takes with 50 mg tablet for a total of 75 mg daily insulin lispro 100 unit/mL insulin pen 25 unit SQ AC 60 Days Qty: 15 2RF budesonide 90 mcg/actuation aerosol powdr breath activated 1 inh inhalation BID 30 Days Qty: 1 4RF levothyroxine 175 mcg tablet 175 mcg PO DAILY 30 Days Qty: 30 3RF oxycodone 10 mg tablet 10 mg PO Q4H PRN (Reason: chronic pain) 30 Days Qty: 120 0RF pantoprazole 40 mg tablet,delayed release (DR/EC) 40 mg PO DAILY aspirin 81 mg tablet,chewable 81 mg PO DAILY aripiprazole 5 mg tablet 5 mg PO DAILY topiramate 50 mg tablet 50 mg PO DAILY Patient Comments: TAKE 1 TABLET BY MOUTH DAILY FOR MIGRAINE Rx Instructions: Takes with 25 mg tablet for a total of 75 mg daily albuterol sulfate [Ventolin HFA] 90 mcg/actuation HFA aerosol inhaler 2 inh INHALATION Q4HP PRN (Reason: SOA) Patient Comments: INHALE 2 PUFFS BY MOUTH EVERY 4 TO 6 HOURS NEEDED FOR SHORTNESS OF BREATH OR WHEEZING insulin glargine [Basaglar KwikPen U-100 Insulin] 100 unit/mL (3 mL) insulin pen 80 unit SQ DAILY Patient Comments: ADMINISTER 70 UNITS UNDER THE SKIN EVERY MORNING furosemide 40 mg tablet 40 mg PO BID 30 Days Qty: 90 0RF Referrals Follow up/Referrals: Paulo Brody DO [Primary Care Provider] - See instructions Clinical Impressions Clinical Impression: Bronchitis, Chest wall muscle strain Discharge ED Provider: Karla Mascorro General Adult HPI General Chief complaint: Shortness of Breath/Dyspnea Stated complaint: Pne Time Seen by Provider: 05/30/23 20:08 Mode of Arrival: EMS Source of Information: Patient Limitations: No Limitations Description of Symptoms (Recalled from ER Triage Doc. by RN): Patient developed a non productive cough today and has been more SOA but has been having oxygen sats fine on his home oxygen of 2L NC. History of Present Illness HPI narrative: Patient is a 68-year-old male history of COPD, CKD, has had multiple diagnoses recently of pneumonia presents today with cough that began today with associated back pain with a cough. States he was coughing so hard at 1 point he felt like he was in a pass out. No increased wheezing sputum production etc. Related Data Home Medications Medication Instructions Recorded Confirmed aripiprazole 5 mg tablet 5 mg PO DAILY Mood 03/29/23 05/21/23 aspirin 81 mg chewable tablet 81 mg PO DAILY Heart Health 03/29/23 05/21/23 pantoprazole 40 mg tablet,delayed 40 mg PO DAILY Acid Reflux 03/29/23 05/21/23 release topiramate 50 mg tablet 50 mg PO DAILY Migraines 04/12/23 05/21/23 albuterol sulfate 90 mcg/actuation 2 inh inhalation Q4HP PRN SOA 05/12/23 05/21/23 aerosol inhaler (Ventolin HFA) insulin glargine 100 unit/mL (3 80 unit SQ DAILY Diabetes 05/12/23 05/21/23 mL) subcutaneous pen (Basaglar KwikPen U-100 Insulin) Previous Rx's Medication Instructions Recorded allopurinol 300 mg tablet 300 mg PO DAILY Gout 90 days #90 04/17/23 tabs atorvastatin 40 mg tablet 40 mg PO HS Cholesterol 90 days 04/17/23 #90 tabs budesonide 90 mcg/actuation breath 1 inh inhalation BID 30 days #1 ea 04/17/23 activated powder inhaler diazepam 5 mg tablet 5 mg PO TID Tremors 90 days #270 04/17/23 tabs escitalopram oxalate 10 mg tablet 10 mg PO DAILY Mood 90 days #90 04/17/23 tabs insulin lispro 100 unit/mL 25 unit (0.25 mL) SQ AC Diabetes 04/17/23 subcutaneous pen 60 days #15 mL isosorbide mononitrate 60 mg 60 mg PO DAILY High Blood Pressure 04/17/23 tablet,extended release 24 hr 90 days #90 tabs metoprolol succinate 25 mg 25 mg PO DAILY High Blood Pressure 04/17/23 tablet,extended release 24 hr 90 days #90 tabs (Toprol XL) montelukast 10 mg tablet 10 mg PO DAILY allergies 90 days 04/17/23 #90 tabs nitroglycerin 0.4 mg sublingual 0.4 mg sublingual Q5MINP PRN chest 04/17/23 tablet pain #90 tabs oxybutynin chloride 15 mg 15 mg PO DAILY Bladder 90 days #90 04/17/23 tablet,extended release 24 hr tabs potassium chloride 20 mEq 20 meq PO DAILY Supplement 90 days 04/17/23 tablet,extended release #90 tabs pregabalin 100 mg capsule 100 mg PO TID Pain 30 days #90 caps 04/17/23 rivaroxaban 15 mg tablet 15 mg PO QPMWITHMEAL Blood 04/17/23 thinner/AFIB 90 days #90 tabs semaglutide 1 mg/dose (4 mg/3 mL) 1 mg (0.75 mL) SQ WEEKLY Diabetes 04/17/23 subcutaneous pen injector (Ozempic) 90 days #9.75 mL spironolactone 25 mg tablet 25 mg PO BID Fluid 90 days #180 04/17/23 tabs tamsulosin 0.4 mg capsule 0.8 mg PO HS Prostate 90 days #180 04/17/23 caps tizanidine 4 mg tablet 4 mg PO HSP PRN Muscle Spasm #90 04/17/23 tabs topiramate 25 mg tablet (Topamax) 25 mg PO DAILY Migraines 90 days 04/17/23 #90 tabs levothyroxine 175 mcg tablet 175 mcg PO DAILY Thyroid 30 days 04/18/23 #30 tabs oxycodone 10 mg tablet 10 mg PO Q4H PRN chronic pain 30 05/11/23 days #120 tabs furosemide 40 mg tablet 40 mg PO BID Fluid 30 days #90 tabs 05/14/23 Allergies Allergy/AdvReac Type Severity Reaction Status Date / Time gabapentin [From Neurontin] Allergy Intermediate Rash Verified 05/21/23 08:25 [facility] Disclaimer: The information contained in this section may have been updated after the patient was seen, as this information can be updated by other users. Medical History (Updated 05/30/23 @ 20:18 by Karla Mascorro MD) Abnormal EKG Acute exacerbation of chronic obstructive pulmonary disease Acute urinary retention Acute urinary retention At risk for osteoporosis At risk for polypharmacy Atypical angina Cauda equina syndrome Chest pain Chronic indwelling Rodriguez catheter Chronic pain Chronic respiratory failure with hypoxia Chronic systolic heart failure CKD (chronic kidney disease) stage 2, GFR 60-89 ml/min COPD (chronic obstructive pulmonary disease) Diabetes mellitus Diabetes mellitus type 2 in obese Edema Encounter for immunization Healthcare-associated pneumonia HLD (hyperlipidemia) HTN (hypertension) Leg pain, bilateral Paralysis, progressive Peritracheal mass Pneumonia SOB (shortness of breath) Tachycardia Surgical History H/O repair of rotator cuff Family History Other Diabetes Hypertension Stroke Social History Smoking Status: Former smoker tobacco type: cigarettes alcohol intake: never substance use type: denies use current occupational status: unemployed Travel in the last 8 weeks: None household members: spouse housing: house caffeine: Yes ROS Obtained: Yes All systems reviewed & no additional complaints except as documented Physical Exam General General appearance: alert and in no apparent distress Respiratory Respiratory exam: Present other (On his home 2 L with oxygen saturations which are normal no respiratory distress no focal adventitious lung sounds no wheezing or prolonged expiratory phase.) Cardiovascular Cardiovascular exam: Present regular rate; Absent tachycardia Abdominal Exam Abdominal exam: Present soft; Absent distention Neurological Exam Neurological exam: Present alert and oriented X3 Medical Decision Making [place] Inquiry Pt receiving controlled substance: No Vital Signs: 05/30/23 19:21 05/30/23 19:33 05/30/23 20:00 Temperature 98.2 F Temperature Source Oral Pulse Rate 96 H 97 H Pulse Rate [Radial] 86 Respiratory Rate 16 13 16 Blood Pressure 112/64 Blood Pressure [Left Radial Artery] 111/65 Blood Pressure Mean [Left Radial Artery] 80 Blood Pressure Source [Left Radial Artery] Automatic Cuff Blood Pressure Position [Left Radial Artery] Sitting 02 Sat by Pulse Oximetry 95 99 97 Oxygen Delivery Method Nasal Cannula Nasal Cannula Nasal Cannula Oxygen Flow Rate (LPM) 2 2 2 05/30/23 20:30 05/30/23 20:45 05/30/23 21:00 Temperature Temperature Source Pulse Rate 86 92 H 94 H Pulse Rate [Radial] Respiratory Rate 19 Blood Pressure 111/71 111/61 Blood Pressure [Left Radial Artery] Blood Pressure Mean [Left Radial Artery] Blood Pressure Source [Left Radial Artery] Blood Pressure Position [Left Radial Artery] 02 Sat by Pulse Oximetry 99 96 96 Oxygen Delivery Method Nasal Cannula Nasal Cannula Nasal Cannula Oxygen Flow Rate (LPM) 2 2 2 05/30/23 21:30 Temperature Temperature Source Pulse Rate 92 H Pulse Rate [Radial] Respiratory Rate Blood Pressure 115/60 Blood Pressure [Left Radial Artery] Blood Pressure Mean [Left Radial Artery] Blood Pressure Source [Left Radial Artery] Blood Pressure Position [Left Radial Artery] 02 Sat by Pulse Oximetry 95 Oxygen Delivery Method Nasal Cannula Oxygen Flow Rate (LPM) 2 Lab Data Lab results reviewed: Yes I reviewed the patient's lab results. Lab Results 05/30/23 19:49: WBC 6.4, RBC 4.50 L, Hgb 13.6 L, Hct 40.7 L, MCV 90.3, MCH 30.2, MCHC 33.5, RDW 14.1, Plt Count 148, MPV 9.7, Neut % (Auto) 64.3, Lymph % (Auto) 26.4, [place] % (Auto) 7.3, Eos % (Auto) 1.6, Baso % (Auto) 0.4, Neut # (Auto) 4.1, Lymph # (Auto) 1.7, [place] # (Auto) 0.5, Eos # (Auto) 0.1, Baso # (Auto) 0.0, Sodium 134 L, Potassium 4.5, Chloride 103, Carbon Dioxide 22, Anion Gap 13.5, BUN 12, Creatinine 1.10, Estimated Creat Clear 93, Estimated GFR 67, Est GFR ( Amer) 81, Glucose 187 H, Calcium 8.7, Total Bilirubin 0.7, AST 53, ALT 36, Alkaline Phosphatase 64, Troponin I < 0.01, Total Protein 7.0, Albumin 3.9, Globulin 3.1, Albumin/Globulin Ratio 1.3 05/30/23 20:30: SARS-CoV-2 (PCR) Not detected, Influenza A Untype (PCR) Not detected, Influenza Type B (PCR) Not detected 05/30/23 19:49 05/30/23 19:49 Orders (Tests/Meds): ED MEDICATIONS Discontinued Medications Generic Name Dose Route Start Last Admin Trade Name Freq PRN Reason Stop Dose Admin Ketorolac Tromethamine 15 mg 05/30/23 20:16 05/30/23 20:52 Ketorolac 30mg/Ml Vial IV 05/30/23 20:17 15 mg ONCE ONE Administration ORDERS Category Date Time Status CXR --portable [XR chest portable] Stat Exams 05/30/23 20:16 Completed CBC w/Auto Diff [Complete Blood Count Auto Diff] Stat Lab 05/30/23 19:49 Completed CMP [Comprehensive Metabolic Panel] Stat Lab 05/30/23 19:49 Completed Rapid PCR Covid and Flu A/B Stat Lab 05/30/23 20:30 Completed Trop I [Troponin I] Stat Lab 05/30/23 19:49 Completed Troponin I Q3H Lab 05/30/23 23:30 Ordered Troponin I Q3H Lab 05/31/23 02:30 Ordered HEART Score History (anamnesis): Slightly suspicious ECG: Non-specific disturbance Age: >65 years Risk factors: 3 or more risk factors Troponin: </= normal limit HEART Score: 5 Medical Decision Narrative: Patient is a 68-year-old male with history of COPD presenting today with a cough that you started today he has a normal respiratory exam for me he is on his home oxygen with normal oxygen saturations. He does have some back pain with a cough which is most likely musculoskeletal. Will get a plain film check him for COVID and flu give him some Toradol and reassess Reassessment patient very stable no respiratory distress chest x-ray performed which I personally interpreted which shows no acute cardiopulmonary emergency. Specifically no pneumonia. Radiology read consistent with this as well. EKG performed which I personally interpreted shows a ventricular rate of 87 sinus rhythm no acute ST segment elevations depressions or T wave inversions to suggest acute ischemia there is a negative deflection in lead aVF with left anterior fascicular block overall nondiagnostic emergency EKG. Troponin undetectably low this is not consistent with acute coronary syndrome myocarditis etc. I am not concerned clinically about a pulmonary embolism. Overall this is still consistent with a viral bronchitis most likely musculoskeletal strain causing the back pain that has been having. He has been advised to take [id number] medications for that COVID and flu were negative no indication for specific antiviral or antibiotics and supportive care has been emphasized and he will follow-up with primary care doctor which she agrees to. Critical Care Critical Care Time Critical Care Time: No
--- NOTE | 2023-05-30 20:31 | ECG_ITS ---
APPROVED REPORT Exam: Resting ECG HR:87 bpm ECG Measurements Heart Rate 87 AXES NC 171 P 26 QRSd 92 QRS -46 QT 341 T 52 QTc 386 Conclusion SINUS RHYTHM LEFT ANTERIOR FASCICULAR BLOCK [QRS AXIS <= -45, QR IN I, RS IN II] VOLTAGE CRITERIA FOR LVH Late R wave progression - old finding ABNORMAL ECG UNCONFIRMED REPORT Electronically signed by : Clifton Kulkarni MD 06/01/2023 08:00:18
[2023-05-30 20:32] LABS: Basophils % 0.4 % (0.1-2.0); Eosinophils # 0.1 K/mm3 (0.0-0.4); Eosinophils % 1.6 % (0.1-12.0); Hematocrit 40.7 % (42.0-52.0); Hemoglobin 13.6 g/dL (14.1-18.0); Lymphocytes # 1.7 K/mm3 (0.7-4.5); Lymphocytes % 26.4 % (10-50); Mean Corpuscular HGB Conc 33.5 g/dL (31.8-35.4); Mean Corpuscular Hemoglobin 30.2 pg (27.0-31.2); Mean Corpuscular Volume 90.3 fl (80-94); Mean Platelet Volume 9.7 fl (7.4-10.4); Monocytes # 0.5 K/mm3 (0.1-1.0); Monocytes % 7.3 % (1.7-9.3); Neutrophils # 4.1 K/mm3 (1.8-7.8); Neutrophils % 64.3 % (37.0-80.0); Platelet Count 148 K/mm3 (142-424); Red Cell Distribution Width 14.1 % (11.5-17.5); White Blood Count 6.4 K/mm3 (4.8-10.8)
[2023-05-30 20:34] LABS: Alanine Aminotransferase 36 U/L (12-78); Albumin Level 3.9 g/dl (3.5-5.0); Albumin/Globulin Ratio 1.3 (1.1-1.8); Alkaline Phosphatase 64 U/L (38-126); Anion Gap 13.5 mEq/L (5-15); Aspartate Amino Transferase 53 U/L (17-59); Bilirubin,Total 0.7 mg/dl (0.2-1.3); Blood Urea Nitrogen 12 mg/dl (9-20); Calcium 8.7 mg/dl (8.4-10.2); Carbon Dioxide 22 mmol/L (22.0-30.0); Chloride 103 mmol/L (98-107); Creatinine Clearance Estimated 93 mL/min (50-200); Estimated Glomerular Filt Rate 67 ml/min (>60); GFR (African American) 81 ML/MIN (>60); Globulin 3.1 g/dL (1.3-3.2); Glucose 187 mg/dl (74-100); Potassium 4.5 mmoL/L (3.5-5.1); Sodium 134 mmol/L (136-145)
[2023-05-30 20:49] LABS: Troponin I < 0.01 ng/ml (0.00-0.034)
[2023-05-30] MEDS: KETOROLAC 30MG/ML VIAL 15 MG IV (20:52)
[2023-05-30 20:53] LABS: Coronavirus 19, PCR Not Detected (NotDetected); Influenza A, PCR Not Detected (NotDetected); Influenza B, PCR Not Detected (NotDetected)
--- NOTE | 2023-05-30 22:28 | PC.NURSE ---
Daughter notified that patient was ready for discharge and she states that she is on her way to get him.
== END 2023-05-30 22:49 | disposition home or self-care (01) ==
PROVIDERS: Emergency Provider Student in an Organized Health Care Education/Training Program; PCP Internal Medicine
DX: J40 Bronchitis, not specified as acute or chronic (principal); S29.011A Strain of muscle and tendon of front wall of thorax, initial encounter; R06.02 Shortness of breath; J44.9 Chronic obstructive pulmonary disease, unspecified; I13.0 Hypertensive heart and chronic kidney disease with heart failure and stage 1 through stage 4 chronic kidney disease, or unspecified chronic kidney disease; N18.2 Chronic kidney disease, stage 2 (mild); I50.22 Chronic systolic (congestive) heart failure; E11.22 Type 2 diabetes mellitus with diabetic chronic kidney disease; E78.5 Hyperlipidemia, unspecified; I20.9 Angina pectoris, unspecified
CPT/HCPCS: 71045; 80053; 84484; 85025; 87636; 93005; 96374; 99285

== ENCOUNTER 2023-06-12 12:36 | Outpatient (CLI) | payer MEDICARE, OTHER, SELFPAY ==
[2023-06-12 12:45] LABS: Microscopic, Urine URINE MICROSCOPIC (MICROSCOPIC)
[2023-06-12 12:47] LABS: Appearance,Urine CLEAR (Clear); Bilirubin,Urine Negative (Negative); Blood, Urine 3+ (Negative); Color,Urine YELLOW (Yellow); Glucose,Urine (UA) Negative (Negative); Ketones,Urine Negative (Negative); Leukocyte Esterase,Urine 2+ (Negative); Nitrate,Urine Negative (Negative); Protein,Urine Negative (Negative)
[2023-06-12 13:02] LABS: RBC,Urine 20-50 #/hpf (0-3); Squamous Epithelial Cell,Urine Occasional #/hpf (0-5)
[2023-06-12 13:03] LABS: Bacteria,Urine Trace /lpf
== END 2023-06-12 23:59 ==
PROVIDERS: PCP Internal Medicine; Visit Provider Internal Medicine
DX: R39.9 Unspecified symptoms and signs involving the genitourinary system (principal); N39.0 Urinary tract infection, site not specified; B96.89 Other specified bacterial agents as the cause of diseases classified elsewhere
CPT/HCPCS: 81001; 87086

== ENCOUNTER 2023-07-05 10:44 | Outpatient (CLI) | payer MEDICARE, OTHER, SELFPAY ==
[2023-07-05 10:50] LABS: Microscopic, Urine URINE MICROSCOPIC (MICROSCOPIC)
[2023-07-05 11:10] LABS: Appearance,Urine CLOUDY (Clear); Bilirubin,Urine Negative (Negative); Blood, Urine 3+ (Negative); Color,Urine RED (Yellow); Glucose,Urine (UA) Negative (Negative); Ketones,Urine Negative (Negative); Leukocyte Esterase,Urine 2+ (Negative); Nitrate,Urine POSITIVE (Negative); Protein,Urine 1+ (Negative)
[2023-07-05 11:18] LABS: Bacteria,Urine 1+ /lpf; RBC,Urine TNTC #/hpf (0-3); Squamous Epithelial Cell,Urine Occasional #/hpf (0-5)
== END 2023-07-05 23:59 ==
LOC: LAB.DROPOF 10:45
PROVIDERS: PCP Internal Medicine; Visit Provider Internal Medicine
DX: R82.90 Unspecified abnormal findings in urine (principal); R30.0 Dysuria; N39.0 Urinary tract infection, site not specified; B96.5 Pseudomonas (aeruginosa) (mallei) (pseudomallei) as the cause of diseases classified elsewhere; B96.89 Other specified bacterial agents as the cause of diseases classified elsewhere
CPT/HCPCS: 81001; 87086

== ENCOUNTER 2023-07-07 16:11 | Emergency (ER) | payer MEDICARE, OTHER, SELFPAY ==
[2023-07-07 16:11] VITALS: BP 124/77; PULSE 105; RESP 16; TEMP 36.7; O2SAT 95; BMI 32.3
--- NOTE | 2023-07-07 16:56 | HMH.EDGENADL ---
Discharge Plan Disposition Patient Disposition: Home, Self-Care Prescriptions Prescriptions: New cefdinir 300 mg capsule 300 mg PO BID 7 Days Qty: 14 0RF No Action Ozempic 2 mg/dose (8 mg/3 mL) pen injector SQ allopurinol 300 mg tablet 300 mg PO DAILY 90 Days Qty: 90 3RF atorvastatin 40 mg tablet 40 mg PO HS 90 Days Qty: 90 2RF diazepam 5 mg tablet 5 mg PO TID 90 Days Qty: 270 2RF escitalopram oxalate 10 mg tablet 10 mg PO DAILY 90 Days Qty: 90 2RF isosorbide mononitrate 60 mg tablet extended release 24 hr 60 mg PO DAILY 90 Days Qty: 90 2RF montelukast 10 mg tablet 10 mg PO DAILY 90 Days Qty: 90 2RF nitroglycerin 0.4 mg tablet, sublingual 0.4 mg SUBLINGUAL Q5MINP PRN (Reason: chest pain) Qty: 90 0RF oxybutynin chloride 15 mg tablet extended release 24hr 15 mg PO DAILY 90 Days Qty: 90 2RF potassium chloride 20 mEq tablet extended release 20 meq PO DAILY 90 Days Qty: 90 2RF pregabalin 100 mg capsule 100 mg PO TID 30 Days Qty: 90 3RF rivaroxaban 15 mg tablet 15 mg PO QPMWITHMEAL 90 Days Qty: 90 2RF tamsulosin 0.4 mg capsule 0.8 mg PO HS 90 Days Qty: 180 3RF tizanidine 4 mg tablet 4 mg PO HSP PRN (Reason: Muscle Spasm) Qty: 90 3RF insulin lispro 100 unit/mL insulin pen 25 unit SQ AC 60 Days Qty: 15 2RF budesonide 90 mcg/actuation aerosol powdr breath activated 1 inh inhalation BID 30 Days Qty: 1 4RF levothyroxine 175 mcg tablet 175 mcg PO DAILY 30 Days Qty: 30 3RF metoprolol succinate 25 mg tablet extended release 24 hr See Rx Instructions .ROUTE .COMPLEX Qty: 90 0RF Dose Instruction: TAKE ONE TABLET BY MOUTH EVERY DAY FOR high blood pressure Rx Instructions: TAKE ONE TABLET BY MOUTH EVERY DAY FOR high blood pressure oxycodone 10 mg tablet 10 mg PO Q4H PRN (Reason: chronic pain) 30 Days Qty: 120 0RF pantoprazole 40 mg tablet,delayed release (DR/EC) 40 mg PO DAILY 60 Days Qty: 60 1RF topiramate [Topamax] 25 mg tablet 25 mg PO DAILY 90 Days Qty: 90 3RF Rx Instructions: Takes with 50 mg tablet for a total of 75 mg daily spironolactone 25 mg tablet See Rx Instructions .ROUTE .COMPLEX Qty: 180 4RF Dose Instruction: TAKE 1 TABLET BY MOUTH TWICE DAILY Rx Instructions: TAKE 1 TABLET BY MOUTH TWICE DAILY aspirin 81 mg tablet,chewable 81 mg PO DAILY aripiprazole 5 mg tablet 5 mg PO DAILY topiramate 50 mg tablet 50 mg PO DAILY Patient Comments: TAKE 1 TABLET BY MOUTH DAILY FOR MIGRAINE Rx Instructions: Takes with 25 mg tablet for a total of 75 mg daily albuterol sulfate [Ventolin HFA] 90 mcg/actuation HFA aerosol inhaler 2 inh INHALATION Q4HP PRN (Reason: SOA) Patient Comments: INHALE 2 PUFFS BY MOUTH EVERY 4 TO 6 HOURS NEEDED FOR SHORTNESS OF BREATH OR WHEEZING insulin glargine [Basaglar KwikPen U-100 Insulin] 100 unit/mL (3 mL) insulin pen 80 unit SQ DAILY Patient Comments: ADMINISTER 70 UNITS UNDER THE SKIN EVERY MORNING furosemide 40 mg tablet 40 mg PO BID 30 Days Qty: 90 0RF Referrals Follow up/Referrals: Provider,Referral, MD [Primary Care Provider] - See instructions Activity Restrictions/Add. Instructions Additional Instructions/Restrictions: Call your family doctor to establish care for this visit to the emergency department and schedule follow-up within 48 hours to ensure improvement. If you have any worsening of your condition or any other concerning signs or symptoms, return to the emergency department or your primary care doctor for further evaluation. Cefdinir twice daily for 7 days Clinical Impressions Clinical Impression: UTI (urinary tract infection) due to urinary indwelling catheter Qualifiers: Indwelling urinary catheter type: indwelling urethral catheter Encounter type: initial encounter Qualified Code(s): T83.511A - Infection and inflammatory reaction due to indwelling urethral catheter, initial encounter Instructions Patient Instructions: DI for Urinary Tract Infection (UTI), DI for Urinary Tract Infection in Children Discharge ED Provider: Zenon Vora [facility] Adult [facility] General Chief complaint: Urogenital-Male Stated complaint: blood in urine Time Seen by Provider: 07/07/23 16:11 Mode of Arrival: EMS Source of Information: Patient and EMS Limitations: No Limitations Description of Symptoms (Recalled from ER Triage Doc. by RN): pt presents to ED from home via EMs for blood in urine. pt does have chronic latham catheter, pt reports this is due to weak bladder . pt reports his f/c has not been changed for approx 4-5 weeks. pt reports he used to have home health but they have not been to his house. pt reports abdominal pain located in middle of abdomen that began sunday night. blood in urine began sunday night. pt does take a blood thinner History of Present Illness HPI narrative: 68-year-old male with history of hypertension, hyperlipidemia, COPD on 2 L nasal cannula at home, diabetes, chronic indwelling Latham catheter secondary to bladder failing, presenting with hematuria. Patient states that for the past couple of days he has had lower abdominal tenderness and distention. Had a fever and clamminess yesterday, 07/06. Today, he noticed that the output from his Latham catheter was red and cloudy. Denies flank tenderness, nausea or vomiting, cough, chest pain, shortness of breath, or any other concerns. Related Data Home Medications Medication Instructions Recorded Confirmed aripiprazole 5 mg tablet 5 mg PO DAILY Mood 03/29/23 06/14/23 aspirin 81 mg chewable tablet 81 mg PO DAILY Heart Health 03/29/23 06/14/23 topiramate 50 mg tablet 50 mg PO DAILY Migraines 04/12/23 06/14/23 albuterol sulfate 90 mcg/actuation 2 inh inhalation Q4HP PRN SOA 05/12/23 06/14/23 aerosol inhaler (Ventolin HFA) insulin glargine 100 unit/mL (3 80 unit SQ DAILY Diabetes 05/12/23 06/14/23 mL) subcutaneous pen (Basaglar KwikPen U-100 Insulin) semaglutide 2 mg/dose (8 mg/3 mL) mg SQ 06/14/23 06/14/23 subcutaneous pen injector (Ozempic) Previous Rx's Medication Instructions Recorded allopurinol 300 mg tablet 300 mg PO DAILY Gout 90 days #90 04/17/23 tabs atorvastatin 40 mg tablet 40 mg PO HS Cholesterol 90 days 04/17/23 #90 tabs budesonide 90 mcg/actuation breath 1 inh inhalation BID 30 days #1 ea 04/17/23 activated powder inhaler diazepam 5 mg tablet 5 mg PO TID Tremors 90 days #270 04/17/23 tabs escitalopram oxalate 10 mg tablet 10 mg PO DAILY Mood 90 days #90 04/17/23 tabs insulin lispro 100 unit/mL 25 unit (0.25 mL) SQ AC Diabetes 04/17/23 subcutaneous pen 60 days #15 mL isosorbide mononitrate 60 mg 60 mg PO DAILY High Blood Pressure 04/17/23 tablet,extended release 24 hr 90 days #90 tabs montelukast 10 mg tablet 10 mg PO DAILY allergies 90 days 04/17/23 #90 tabs nitroglycerin 0.4 mg sublingual 0.4 mg sublingual Q5MINP PRN chest 04/17/23 tablet pain #90 tabs oxybutynin chloride 15 mg 15 mg PO DAILY Bladder 90 days #90 04/17/23 tablet,extended release 24 hr tabs potassium chloride 20 mEq 20 meq PO DAILY Supplement 90 days 04/17/23 tablet,extended release #90 tabs pregabalin 100 mg capsule 100 mg PO TID Pain 30 days #90 caps 04/17/23 rivaroxaban 15 mg tablet 15 mg PO QPMWITHMEAL Blood 04/17/23 thinner/AFIB 90 days #90 tabs tamsulosin 0.4 mg capsule 0.8 mg PO HS Prostate 90 days #180 04/17/23 caps tizanidine 4 mg tablet 4 mg PO HSP PRN Muscle Spasm #90 04/17/23 tabs levothyroxine 175 mcg tablet 175 mcg PO DAILY Thyroid 30 days 04/18/23 #30 tabs furosemide 40 mg tablet 40 mg PO BID Fluid 30 days #90 tabs 05/14/23 metoprolol succinate 25 mg See Rx Instructions .Route 05/31/23 tablet,extended release 24 hr .COMPLEX #90 tabs oxycodone 10 mg tablet 10 mg PO Q4H PRN chronic pain 30 06/05/23 days #120 tabs pantoprazole 40 mg tablet,delayed 40 mg PO DAILY Acid Reflux 60 days 06/05/23 release #60 tabs topiramate 25 mg tablet (Topamax) 25 mg PO DAILY Migraines 90 days 06/05/23 #90 tabs spironolactone 25 mg tablet See Rx Instructions .Route 07/02/23 .COMPLEX #180 tabs cefdinir 300 mg capsule 300 mg PO BID 7 days #14 caps 07/07/23 Allergies Allergy/AdvReac Type Severity Reaction Status Date / Time gabapentin [From Neurontin] Allergy Intermediate Rash Verified 06/14/23 09:57 [facility] Disclaimer: The information contained in this section may have been updated after the patient was seen, as this information can be updated by other users. Medical History Abnormal EKG Acute exacerbation of chronic obstructive pulmonary disease Acute urinary retention Acute urinary retention At risk for osteoporosis As I mentioned in my previous note that the things have become difficult due to his advanced disease. We will stop the DEXA scan. His daughter indicates to be very difficult for him to undergo this procedure and I agree. Please see palliative care below. At risk for polypharmacy Patient is on multiple medications from multiple medications from multiple providers. I think we have gotten this patient's medications down as low as we can at this point. If the patient were to enter palliative care other medicines might be removed please see below. Atypical angina Cauda equina syndrome Probably causing some of his pain. Continue his pain medications which appear to be controlling his pain fairly well. PDMP was checked. Chest pain Chronic indwelling Latham catheter I reviewed the UA that was obtained recently. This is typical for an indwelling catheter and I do not think there is anything further to do at this point. Chronic pain This patient has multiple reasons to have chronic pain including, diabetic peripheral polyneuropathy, cauda equina syndrome, and other issues. We will continue his oxycodone but I would prefer to do this without the acetaminophen. I will give him up to 4 tablets/day of oxycodone 10 mg. Goal is to keep him comfortable as best as possible. He is on diazepam as well and this is greatly concerning but we will discuss it at his next visit. Chronic respiratory failure with hypoxia Chronic systolic heart failure CKD (chronic kidney disease) stage 2, GFR 60-89 ml/min Last labs revealed a GFR of 61. He continues to be stage II mild chronic kidney disease probably related to his diabetes and hypertension. He does follow with nephrology, however he would follow with palliative medicine if he enters that program see below.. COPD (chronic obstructive pulmonary disease) Patient had wheezes at his last visit. I did prescribe budesonide MDI and he is using that twice a day. He does feel the MDIs have been helpful and did not have wheezes today.. Diabetes mellitus This patient's A1c done November 2022 was 5.4. This actually is excellent. Would not change his insulin regimen at this point. Diabetes mellitus type 2 in obese A1c's have been good. However in this patient I am not sure trying to attain A1c is around 7 is worth the effort or worth the potential downside for this patient. Leave things as they are currently. Edema Encounter for immunization Healthcare-associated pneumonia HLD (hyperlipidemia) Patient is on atorvastatin. Last lipid panel does reveal a total triglyceride of 108 total cholesterol 139 LDL of 78 VLDL of 22 HDL of 39. This really is good panel and I would continue atorvastatin 40. HTN (hypertension) Blood pressures have been good here at the clinic. Will continue his current therapy, see below. Leg pain, bilateral Paralysis, progressive Peritracheal mass Pneumonia SOB (shortness of breath) Tachycardia Surgical History H/O repair of rotator cuff Family History Other Diabetes Hypertension Stroke Social History Smoking Status: Former smoker tobacco type: cigarettes alcohol intake: never substance use type: denies use current occupational status: unemployed Travel in the last 8 weeks: None household members: spouse housing: house caffeine: Yes ROS Obtained: Yes All systems reviewed & no additional complaints except as documented Physical Exam General General appearance: alert, in no apparent distress and other (Chronically ill) Head Head exam: atraumatic and normocephalic Eye Eye exam: Present normal appearance, PERRL and EOMI ENT ENT exam: Present mucous membranes moist Neck Neck exam: Present normal inspection, full ROM and trachea midline Respiratory Respiratory exam: Present normal lung sounds bilaterally and other (On home oxygen); Absent respiratory distress, wheezes, stridor, accessory muscle use or prolonged expiratory phase Cardiovascular Cardiovascular exam: Present normal rhythm Abdominal Exam Abdominal exam: Present soft; Absent distention, tenderness, guarding, rebound or rigidity Extremities Exam Extremities exam: Absent edema Neurological Exam Neurological exam: Present alert, oriented X3, CN II-XII intact and normal gait; Absent motor sensory deficit Skin Skin exam: Present warm and dry; Absent diaphoresis or erythema Medical Decision Making Medical Records Medical records reviewed: Yes I reviewed the patient's medical records. Heber Inquiry Pt receiving controlled substance: No He[place] was queried for this patient: No Vital Signs: 07/07/23 16:11 07/07/23 17:03 07/07/23 17:30 Temperature 98.0 F Temperature Source Oral Pulse Rate 115 H 109 H Pulse Rate [Left Radial] 105 H Respiratory Rate 16 Blood Pressure 111/68 120/74 Blood Pressure [Right Arm] 124/77 Blood Pressure Mean 89 Blood Pressure Mean [Right Arm] 92 02 Sat by Pulse Oximetry 95 93 L 93 L Oxygen Delivery Method Room Air Nasal Cannula Nasal Cannula Oxygen Flow Rate (LPM) 2 2 07/07/23 18:00 Temperature Temperature Source Pulse Rate 105 H Pulse Rate [Left Radial] Respiratory Rate Blood Pressure 131/79 Blood Pressure [Right Arm] Blood Pressure Mean 93 Blood Pressure Mean [Right Arm] 02 Sat by Pulse Oximetry 92 L Oxygen Delivery Method Nasal Cannula Oxygen Flow Rate (LPM) 2 Lab Data Lab Results 07/07/23 17:43: Urine Color Yellow, Urine Appearance Sl cloudy, Urine pH 7.5, Ur Specific [place] <= 1.005, Urine Protein Negative, Urine Glucose (UA) Negative, Urine Ketones Negative, Urine Blood 3+, Urine Nitrate Negative, Urine Bilirubin Negative, Urine Urobilinogen 0.2, Ur Leukocyte Esterase 3+ A, Urine RBC 5-10, Urine WBC 10-20, Ur Squamous Epith Cells None, Urine Bacteria Trace Orders (Tests/Meds): ED MEDICATIONS Generic Name Dose Route Start Last Admin Trade Name Freq PRN Reason Stop Dose Admin Lactated Ringer's 1,000 mls @ 999 mls/hr 07/07/23 18:06 07/07/23 18:17 Lactated Ringer's 1000 Ml Bag IV 07/07/23 19:06 999 mls/hr .Q1H1M ONE Administration Ceftriaxone Sodium 1 gm/ 50 mls @ 100 mls/hr 07/07/23 18:28 Sodium Chloride IV 07/07/23 18:57 ONCE ONE ORDERS Category Date Time Status UA [Urinalysis and Microscopic] Stat Lab 07/07/23 17:43 Completed Urine Culture Stat Micro 07/07/23 17:43 Received Medical Decision Narrative: 68-year-old male with history of hypertension, hyperlipidemia, COPD on 2 L nasal cannula at home, diabetes, chronic indwelling Latham catheter secondary to bladder failing, presenting with hematuria. Patient states that for the past couple of days he has had lower abdominal tenderness and distention. Had a fever and clamminess yesterday, 2/. Today, he noticed that the output from his Latham catheter was red and cloudy. Denies flank tenderness, nausea or vomiting, cough, chest pain, shortness of breath, or any other concerns. History was obtained via conversation with patient and EMS. On arrival, patient hemodynamically stable, alert, oriented x4, appropriate, GCS 15, moving all extremities spontaneously, pupils equal and reactive to light. Full physical exam performed and significant for chronically ill-appearing male in no acute distress. On home oxygen. Lungs are clear to auscultation. Patient saturating appropriately on his home oxygen. Abdomen is soft, nontender. Patient does have blood and sediment in Latham bag.. Differential includes UTI, pyelonephritis, nephrolithiasis, viral syndrome, among others. Patient was given Latham exchange for symptomatic management and correction of underlying abnormalities. Workup independently interpreted and significant for UTI with blood, leukocyte Estrace, white blood cells, and bacteria on UA. See radiology read for full review of final results. On reevaluation, patient given 1 g ceftriaxone. Given patient presentation, workup, history, this most likely represents UTI in the setting of chronic indwelling Latham. Because patient at baseline without signs or symptoms of clinical decompensation, deemed appropriate for discharge. Results were relayed to patient who voiced understanding and were agreeable to outpatient management and follow up. At the time of discharge the patient was hemodynamically stable, tolerating PO, and mobilizing appropriately. Critical Care Critical Care Time Critical Care Time: No
[2023-07-07 17:03] VITALS: BP 111/68; PULSE 115; O2SAT 93
[2023-07-07 17:30] VITALS: BP 120/74; PULSE 109; O2SAT 93
--- NOTE | 2023-07-07 17:44 | PC.NURSE ---
18F latham removed and replaced from our facility. pt does have a chronic latham placed. urine sent from new latham placement
[2023-07-07 18:00] VITALS: BP 131/79; PULSE 105; O2SAT 92
[2023-07-07 18:11] LABS: Microscopic, Urine URINE MICROSCOPIC (MICROSCOPIC)
[2023-07-07 18:14] LABS: Appearance,Urine SL CLOUDY (Clear); Bilirubin,Urine Negative (Negative); Blood, Urine 3+ (Negative); Color,Urine YELLOW (Yellow); Glucose,Urine (UA) Negative (Negative); Ketones,Urine Negative (Negative); Leukocyte Esterase,Urine 3+ (Negative); Nitrate,Urine Negative (Negative); PH,Urine 7.5 (5.0-8.5); Protein,Urine Negative (Negative); Specific Gravity, Urine <= 1.005 (1.005-1.030); Urobilinogen,Urine 0.2 EU/dl (0.2)
[2023-07-07] MEDS: LACTATED RINGERS 1000ML 1,000 ML 999 ML IV (18:17)
[2023-07-07 18:30] VITALS: BP 115/77; PULSE 106; O2SAT 92
[2023-07-07 18:32] LABS: Bacteria,Urine Trace /lpf
[2023-07-07] MEDS: CEFTRIAXONE SODIUM 1 GM in 0.9 % SODIUM CHLORIDE 50 ML IV (18:44)
[2023-07-07 19:17] VITALS: BP 112/76; PULSE 96; RESP 20; TEMP 36.6; O2SAT 90
== END 2023-07-07 19:18 | disposition home or self-care (01) ==
PROVIDERS: Emergency Provider Emergency Medicine
DX: T83.511A Infection and inflammatory reaction due to indwelling urethral catheter, initial encounter (principal); R31.9 Hematuria, unspecified; E11.22 Type 2 diabetes mellitus with diabetic chronic kidney disease; I13.0 Hypertensive heart and chronic kidney disease with heart failure and stage 1 through stage 4 chronic kidney disease, or unspecified chronic kidney disease; E78.5 Hyperlipidemia, unspecified; J44.9 Chronic obstructive pulmonary disease, unspecified; N18.2 Chronic kidney disease, stage 2 (mild); I50.20 Unspecified systolic (congestive) heart failure; Z87.891 Personal history of nicotine dependence
CPT/HCPCS: 81001; 87086; 96361; 96365; 99284; J0696

== ENCOUNTER 2023-07-18 11:39 | Outpatient (CLI) | payer MEDICARE, OTHER, SELFPAY | END 2023-07-18 23:59 | PROVIDERS: PCP Internal Medicine; Visit Provider Internal Medicine | DX: R30.0 Dysuria (principal) | CPT/HCPCS: 87086 ==

== ENCOUNTER 2023-07-25 17:53 | Outpatient (CLI) | payer MEDICARE, OTHER, SELFPAY ==
[2023-07-25 20:12] LABS: Microscopic, Urine URINE MICROSCOPIC (MICROSCOPIC)
[2023-07-25 20:52] LABS: Appearance,Urine CLEAR (Clear); Bilirubin,Urine Negative (Negative); Blood, Urine 3+ (Negative); Color,Urine YELLOW (Yellow); Glucose,Urine (UA) TRACE (Negative); Ketones,Urine Negative (Negative); Leukocyte Esterase,Urine TRACE (Negative); Nitrate,Urine Negative (Negative); Protein,Urine Negative (Negative); Urobilinogen,Urine 0.2 EU/dl (0.2)
[2023-07-25 21:04] LABS: Squamous Epithelial Cell,Urine Occasional #/hpf (0-5); WBC,Urine Occasional #/hpf (0-3)
== END 2023-07-25 23:59 ==
PROVIDERS: PCP Internal Medicine; Visit Provider Internal Medicine
DX: R30.9 Painful micturition, unspecified (principal)
CPT/HCPCS: 81001

== ENCOUNTER 2023-07-27 10:47 | Outpatient (CLI) | payer MEDICARE, OTHER, SELFPAY | END 2023-07-27 23:59 | PROVIDERS: PCP Internal Medicine; Visit Provider Internal Medicine | DX: R36.9 Urethral discharge, unspecified (principal); B96.83 Acinetobacter baumannii as the cause of diseases classified elsewhere; Z79.899 Other long term (current) drug therapy | CPT/HCPCS: 87070; 87205 ==

== ENCOUNTER 2023-09-10 18:57 | Outpatient (CLI) | payer MEDICARE, OTHER, SELFPAY | END 2023-09-10 23:59 | LOC: LAB.DROPOF 18:59 | PROVIDERS: PCP Internal Medicine; Visit Provider Internal Medicine | DX: N39.0 Urinary tract infection, site not specified (principal); T83.511A Infection and inflammatory reaction due to indwelling urethral catheter, initial encounter; B96.29 Other Escherichia coli [E. coli] as the cause of diseases classified elsewhere | CPT/HCPCS: 87086 ==

== ENCOUNTER 2023-09-22 13:14 | Emergency (ER) | payer MEDICARE, OTHER, SELFPAY ==
[2023-09-22 13:14] VITALS: BP 138/103; PULSE 99; RESP 20; TEMP 36.7; O2SAT 96; BMI 30.8
[2023-09-22 13:30] VITALS: BP 141/78; PULSE 97; RESP 18; O2SAT 95
--- NOTE | 2023-09-22 13:35 | PC.NURSE ---
DR REECE AT BEDSIDE
--- NOTE | 2023-09-22 13:35 | PC.NURSE ---
bladder scan showed greater than 750ml,ER aware
[2023-09-22 14:00] VITALS: BP 133/82; PULSE 105; RESP 18; O2SAT 93
[2023-09-22 14:30] VITALS: BP 139/78; PULSE 110; RESP 18; O2SAT 97
--- NOTE | 2023-09-22 14:30 | PC.NURSE ---
removed regular 16 fr latham cath that was placed yesterday per [facility]ators per the patient. attempted to place a regular 3 way latham cath with no success for bladder irrigation per ER MD. when removing latham that was placed a lot of bleeding was noted and ER MD called to the bedside. was able to place a 2 way coude with difficulty and with ER doc. however latham is completly clotted off and unable to drain. ER MD to transfer patient
--- NOTE | 2023-09-22 14:54 | CT_ITS ---
PROCEDURE INFORMATION: Exam: CTA Abdomen and Pelvis With Contrast Exam date and time: 09/22/2023 5:17 PM Age: 68 years old Clinical indication: Other: Blood in latham bag; Patient HX: PT got new latham yesterday and has had blood since; Additional info: Bladder hemorrhage TECHNIQUE: Imaging protocol: Computed tomographic angiography of the abdomen and pelvis with contrast. Exam focused on the arteries. 3D rendering (Not supervised by radiologist): MIP and/or 3D reconstructed images were created by the technologist. Radiation optimization: All CT scans at this facility use at least one of these dose optimization techniques: automated exposure control; mA and/or kV adjustment per patient size (includes targeted exams where dose is matched to clinical indication); or iterative reconstruction. Contrast material: ISOVUE 370; Contrast volume: 100 ml; Contrast route: INTRAVENOUS (IV); COMPARISON: CT ABDOMEN PELVIS W CON 04/12/2023 1:11 AM FINDINGS: Tubes, catheters and devices: Small collections of air in the region of the balloon tip most likely related to positioning rather than suggestive of developing infection. Findings demonstrated on series 1002: 111 -115, 5: 186-194. Lungs: Bibasilar atelectasis versus parenchymal scarring. Diaphragm: Small hiatal hernia Aorta: Scattered regions of atherosclerotic vascular calcification within the abdominal aorta and common iliac arteries. Celiac trunk and mesenteric arteries: No occlusion or significant stenosis. Renal arteries: No occlusion or significant stenosis. Right iliac arteries: No occlusion or significant stenosis. Left iliac arteries: No occlusion or significant stenosis. Liver: Decreased density throughout the liver compatible with hepatic steatosis. Gallbladder and bile ducts: Unremarkable. No calcified stones. No ductal dilation. Pancreas: Unremarkable. No mass. No ductal dilation. Spleen: The spleen is unremarkable. Adrenal glands: Adrenal glands unremarkable. Kidneys and ureters: Bilateral punctate nonobstructing renal calculi. Punctate foci of increased density in the region of the left ureterovesical junction suggestive of multiple calculi. Mild bilateral hydroureteronephrosis. Perinephric stranding. Findings nonspecific and may reflect acute versus chronic inflammatory change. Stomach and bowel: Unremarkable. No obstruction. No mucosal thickening. Appendix: Appendix unremarkable Intraperitoneal space: Unremarkable. No free air. No significant fluid collection. Lymph nodes: Unremarkable. No enlarged lymph nodes. Urinary bladder: Marked bladder distension. Latham catheter balloon present within the bulbar urethra and does not extend into the bladder. Reproductive: Unremarkable as visualized. Bones/joints: Lumbar spondylosis with multilevel disc degeneration. Soft tissues: Soft tissue debris demonstrated in the dependent position of the bladder. Findings most likely compatible with hemorrhage. Fat filled inguinal hernias. IMPRESSION: 1. Malpositioning of balloon inflated Latham catheter within the bulbar the urethra. This does not extend into the bladder. 2. Marked bladder distension. 3. Soft tissue debris demonstrated in the dependent position of the bladder. Findings most likely compatible with hemorrhage. 4. A call is been placed to the referring physician at which time an addended report will be issued.
--- NOTE | 2023-09-22 15:24 | HMH.EDGENADL ---
Discharge Plan Disposition Patient Disposition: Xfer Short-Term Hosp Prescriptions Prescriptions: No Action ranolazine 500 mg tablet extended release 12 hr 500 mg PO Q12H Qty: 60 2RF Rx Instructions: do not break, crush, or chew tablet(s) Ozempic 2 mg/dose (8 mg/3 mL) pen injector SQ oxycodone 10 mg tablet 10 mg PO Q6H PRN (Reason: pain) 30 Days Qty: 120 0RF oxycodone 10 mg tablet 10 mg PO Q6H PRN (Reason: pain) 30 Days Qty: 120 0RF pregabalin 100 mg capsule 100 mg PO TID 30 Days Qty: 90 3RF allopurinol 300 mg tablet 300 mg PO DAILY 90 Days Qty: 90 3RF atorvastatin 40 mg tablet 40 mg PO HS 90 Days Qty: 90 2RF escitalopram oxalate 10 mg tablet 10 mg PO DAILY 90 Days Qty: 90 2RF isosorbide mononitrate 60 mg tablet extended release 24 hr 60 mg PO DAILY 90 Days Qty: 90 2RF montelukast 10 mg tablet 10 mg PO DAILY 90 Days Qty: 90 2RF nitroglycerin 0.4 mg tablet, sublingual 0.4 mg SUBLINGUAL Q5MINP PRN (Reason: chest pain) Qty: 90 0RF oxybutynin chloride 15 mg tablet extended release 24hr 15 mg PO DAILY 90 Days Qty: 90 2RF potassium chloride 20 mEq tablet extended release 20 meq PO DAILY 90 Days Qty: 90 2RF rivaroxaban 15 mg tablet 15 mg PO QPMWITHMEAL 90 Days Qty: 90 2RF tamsulosin 0.4 mg capsule 0.8 mg PO HS 90 Days Qty: 180 3RF tizanidine 4 mg tablet 4 mg PO HSP PRN (Reason: Muscle Spasm) Qty: 90 3RF insulin lispro 100 unit/mL insulin pen 25 unit SQ AC 60 Days Qty: 15 2RF budesonide 90 mcg/actuation aerosol powdr breath activated 1 inh inhalation BID 30 Days Qty: 1 4RF metoprolol succinate 25 mg tablet extended release 24 hr See Rx Instructions .ROUTE .COMPLEX Qty: 90 0RF Dose Instruction: TAKE ONE TABLET BY MOUTH EVERY DAY FOR high blood pressure Rx Instructions: TAKE ONE TABLET BY MOUTH EVERY DAY FOR high blood pressure pantoprazole 40 mg tablet,delayed release (DR/EC) 40 mg PO DAILY 60 Days Qty: 60 1RF topiramate [Topamax] 25 mg tablet 25 mg PO DAILY 90 Days Qty: 90 3RF Rx Instructions: Takes with 50 mg tablet for a total of 75 mg daily spironolactone 25 mg tablet See Rx Instructions .ROUTE .COMPLEX Qty: 180 4RF Dose Instruction: TAKE 1 TABLET BY MOUTH TWICE DAILY Rx Instructions: TAKE 1 TABLET BY MOUTH TWICE DAILY aripiprazole 5 mg tablet 5 mg PO DAILY Qty: 90 1RF levothyroxine 175 mcg tablet See Rx Instructions .ROUTE .COMPLEX Qty: 30 3RF Dose Instruction: TAKE ONE TABLET BY MOUTH EVERY DAY Rx Instructions: TAKE ONE TABLET BY MOUTH EVERY DAY diazepam 5 mg tablet 5 mg PO TID 90 Days Qty: 270 2RF oxycodone 10 mg tablet 10 mg PO Q4H PRN (Reason: chronic pain) 30 Days Qty: 120 0RF sulfamethoxazole-trimethoprim 800-160 mg tablet 1 tab PO BID 14 Days Qty: 28 0RF furosemide 40 mg tablet 40 mg PO BID 30 Days Qty: 90 0RF aspirin 81 mg tablet,chewable 81 mg PO DAILY topiramate 50 mg tablet 50 mg PO DAILY Patient Comments: TAKE 1 TABLET BY MOUTH DAILY FOR MIGRAINE Rx Instructions: Takes with 25 mg tablet for a total of 75 mg daily albuterol sulfate [Ventolin HFA] 90 mcg/actuation HFA aerosol inhaler 2 inh INHALATION Q4HP PRN (Reason: SOA) Patient Comments: INHALE 2 PUFFS BY MOUTH EVERY 4 TO 6 HOURS NEEDED FOR SHORTNESS OF BREATH OR WHEEZING insulin glargine [Basaglar KwikPen U-100 Insulin] 100 unit/mL (3 mL) insulin pen 80 unit SQ DAILY Patient Comments: ADMINISTER 70 UNITS UNDER THE SKIN EVERY MORNING cefdinir 300 mg capsule 300 mg PO BID 7 Days Qty: 14 0RF Referrals Follow up/Referrals: Provider,Referral, MD [Primary Care Provider] - See instructions Clinical Impressions Clinical Impression: Hematuria, Obstructed Rodriguez catheter Instructions Patient Instructions: DI for Acute Abdominal Pain Discharge ED Provider: Estephania Campa General Adult HPI <Estephania Campa DO - Last Filed: 09/22/23 15:35> General Chief complaint: Abdominal Pain Stated complaint: Catheter Problems Time Seen by Provider: 09/22/23 13:18 Mode of Arrival: EMS Source of Information: Patient Limitations: No Limitations Description of Symptoms (Recalled from ER Triage Doc. by RN): PT had a new catheter placed yesterday by [facility] and ever since it has been severe bloody output and abd pain. pt is following with dr burkett in [place] for urinary issues, denies any fever History of Present Illness HPI narrative: This patient is a 68-year-old male with a history of cauda equina syndrome, hypertension, hyperlipidemia, COPD on 2 L nasal cannula at home, diabetes, chronic indwelling Rodriguez catheter secondary to bladder failing, presenting with hematuria. Patient reports that he had [facility] switch out his Rodriguez catheter yesterday, and since then he has had suprapubic pain and hematuria. He notes that he thinks that his catheter stopped draining. He is on Xarelto. No other concerns noted at this time. Related Data Home Medications Medication Instructions Recorded Confirmed aspirin 81 mg chewable tablet 81 mg PO DAILY Heart Health 03/29/23 09/10/23 topiramate 50 mg tablet 50 mg PO DAILY Migraines 04/12/23 09/10/23 albuterol sulfate 90 mcg/actuation 2 inh inhalation Q4HP PRN SOA 05/12/23 09/10/23 aerosol inhaler (Ventolin HFA) insulin glargine 100 unit/mL (3 80 unit SQ DAILY Diabetes 05/12/23 09/10/23 mL) subcutaneous pen (Basaglar KwikPen U-100 Insulin) semaglutide 2 mg/dose (8 mg/3 mL) mg SQ 06/14/23 09/10/23 subcutaneous pen injector (Ozempic) Previous Rx's Medication Instructions Recorded allopurinol 300 mg tablet 300 mg PO DAILY Gout 90 days #90 04/17/23 tabs atorvastatin 40 mg tablet 40 mg PO HS Cholesterol 90 days 04/17/23 #90 tabs budesonide 90 mcg/actuation breath 1 inh inhalation BID 30 days #1 ea 04/17/23 activated powder inhaler escitalopram oxalate 10 mg tablet 10 mg PO DAILY Mood 90 days #90 04/17/23 tabs insulin lispro 100 unit/mL 25 unit (0.25 mL) SQ AC Diabetes 04/17/23 subcutaneous pen 60 days #15 mL isosorbide mononitrate 60 mg 60 mg PO DAILY High Blood Pressure 04/17/23 tablet,extended release 24 hr 90 days #90 tabs montelukast 10 mg tablet 10 mg PO DAILY allergies 90 days 04/17/23 #90 tabs nitroglycerin 0.4 mg sublingual 0.4 mg sublingual Q5MINP PRN chest 04/17/23 tablet pain #90 tabs oxybutynin chloride 15 mg 15 mg PO DAILY Bladder 90 days #90 04/17/23 tablet,extended release 24 hr tabs potassium chloride 20 mEq 20 meq PO DAILY Supplement 90 days 04/17/23 tablet,extended release #90 tabs rivaroxaban 15 mg tablet 15 mg PO QPMWITHMEAL Blood 04/17/23 thinner/AFIB 90 days #90 tabs tamsulosin 0.4 mg capsule 0.8 mg (2 x 0.4 mg) PO HS Prostate 04/17/23 90 days #180 caps tizanidine 4 mg tablet 4 mg PO HSP PRN Muscle Spasm #90 04/17/23 tabs metoprolol succinate 25 mg See Rx Instructions .Route 05/31/23 tablet,extended release 24 hr .COMPLEX #90 tabs pantoprazole 40 mg tablet,delayed 40 mg PO DAILY Acid Reflux 60 days 06/05/23 release #60 tabs topiramate 25 mg tablet (Topamax) 25 mg PO DAILY Migraines 90 days 06/05/23 #90 tabs spironolactone 25 mg tablet See Rx Instructions .Route 07/02/23 .COMPLEX #180 tabs cefdinir 300 mg capsule 300 mg PO BID 7 days #14 caps 07/07/23 ranolazine 500 mg tablet,extended 500 mg PO Q12H #60 tabs 07/23/23 release,12 hr aripiprazole 5 mg tablet 5 mg PO DAILY Mood #90 tabs 08/20/23 levothyroxine 175 mcg tablet See Rx Instructions .Route 08/21/23 .COMPLEX #30 tabs diazepam 5 mg tablet 5 mg PO TID Tremors 90 days #270 09/04/23 tabs oxycodone 10 mg tablet 10 mg PO Q4H PRN chronic pain 30 09/04/23 days #120 tabs oxycodone 10 mg tablet 10 mg PO Q6H PRN pain 30 days #120 09/10/23 tabs oxycodone 10 mg tablet 10 mg PO Q6H PRN pain 30 days #120 09/10/23 tabs pregabalin 100 mg capsule 100 mg PO TID Pain 30 days #90 caps 09/10/23 sulfamethoxazole 800 1 tab PO BID 14 days #28 tabs 09/19/23 mg-trimethoprim 160 mg tablet furosemide 40 mg tablet 40 mg PO BID Fluid 30 days #90 tabs 09/21/23 Allergies Allergy/AdvReac Type Severity Reaction Status Date / Time gabapentin [From Neurontin] Allergy Intermediate Rash Verified 09/10/23 10:04 [facility] <Estephania Campa DO - Last Filed: 09/22/23 15:35> PFS Disclaimer: The information contained in this section may have been updated after the patient was seen, as this information can be updated by other users. Medical History Acute exacerbation of chronic obstructive pulmonary disease Acute urinary retention Chronic pain At risk for osteoporosis Diabetes mellitus type 2 in obese At risk for polypharmacy Pneumonia Healthcare-associated pneumonia Chronic respiratory failure with hypoxia Chronic indwelling Rodriguez catheter Peritracheal mass Acute urinary retention Cauda equina syndrome Paralysis, progressive Encounter for immunization Atypical angina Chest pain Abnormal EKG Edema Leg pain, bilateral Tachycardia SOB (shortness of breath) Chronic systolic heart failure CKD (chronic kidney disease) stage 2, GFR 60-89 ml/min Diabetes mellitus COPD (chronic obstructive pulmonary disease) HLD (hyperlipidemia) HTN (hypertension) Surgical History H/O repair of rotator cuff Family History Other Diabetes Hypertension Stroke Social History Smoking Status: Former smoker tobacco type: cigarettes alcohol intake: never substance use type: denies use current occupational status: unemployed Travel in the last 8 weeks: None household members: spouse housing: house caffeine: Yes <Estephania Campa DO - Last Filed: 09/22/23 15:35> ROS Obtained: Yes All systems reviewed & no additional complaints except as documented Physical Exam <Estephania Campa DO - Last Filed: 09/22/23 15:35> General General appearance: alert, in no apparent distress and obese Head Head exam: atraumatic and normocephalic Eye Eye exam: Present normal appearance, PERRL and EOMI ENT ENT exam: Present normal exam, normal oropharynx, mucous membranes moist and normal external ear exam Neck Neck exam: Present normal inspection, full ROM and trachea midline; Absent tenderness Chest Chest inspection: Present normal inspection and symmetric chest wall rise; Absent tenderness Respiratory Respiratory exam: Present normal lung sounds bilaterally; Absent respiratory distress, wheezes, stridor or accessory muscle use Cardiovascular Cardiovascular exam: Present regular rate and normal rhythm Abdominal Exam Abdominal exam: Present soft and tenderness (Suprapubic with fullness); Absent distention, guarding, rebound or rigidity exam: Present other (Rodriguez catheter in place with adonis blood.) Extremities Exam Extremities exam: Present normal capillary refill; Absent tenderness or edema Back Exam Back exam: Present normal inspection and full ROM; Absent tenderness Neurological Exam Neurological exam: Present alert, oriented X3, CN II-XII intact and other (Chronic bilateral lower extremity edema) Psychiatric Psychiatric exam: Present normal affect and normal mood Skin Skin exam: Present warm and dry Medical Decision Making <Estephania Campa, DO - Last Filed: 09/22/23 15:35> Medical Records Medical records reviewed: Yes I reviewed the patient's medical records. [place] Inquiry Pt receiving controlled substance: No Vital Signs: 09/22/23 13:14 09/22/23 13:30 09/22/23 14:00 Temperature 98.0 F Temperature Source Oral Pulse Rate 97 H 105 H Pulse Rate [Right Radial] 99 H Respiratory Rate 20 18 18 Blood Pressure 141/78 H 133/82 Blood Pressure [Right Arm] 138/103 H Blood Pressure Mean 100 97 Blood Pressure Mean [Right Arm] 114 02 Sat by Pulse Oximetry 96 95 93 L Oxygen Delivery Method Room Air 09/22/23 14:30 09/22/23 15:33 Temperature Temperature Source Pulse Rate 110 H Pulse Rate [Right Radial] Respiratory Rate 18 22 Blood Pressure 139/78 130/74 Blood Pressure [Right Arm] Blood Pressure Mean 96 98 Blood Pressure Mean [Right Arm] 02 Sat by Pulse Oximetry 97 97 Oxygen Delivery Method Lab Data Lab results reviewed: Yes I reviewed the patient's lab results. Orders (Tests/Meds): ED MEDICATIONS Generic Name Dose Route Start Last Admin Trade Name Freq PRN Reason Stop Dose Admin Lactated Ringer's 3,000 mls @ 998.983 mls/hr 09/22/23 14:25 Lactated Ringer's For Irr 3000ml IR 10/22/23 14:24 NEEDED PRN CONTINUOUS BLADDER IRRIGATION Discontinued Medications Generic Name Dose Route Start Last Admin Trade Name Santiago PRN Reason Stop Dose Admin Lactated Ringer's 1,000 mls @ 999 mls/hr 09/22/23 14:40 09/22/23 16:00 Lactated Ringer's 1000 Ml Bag IV 09/22/23 15:40 999 mls/hr .Q1H1M ONE Administration ORDERS Category Date Time Status CT angio abdomen pelvis Stat Cat Scan 09/22/23 14:54 Ordered Activated Partial Thrombo Time Stat Lab 09/22/23 13:39 Ordered Complete Blood Count Auto Diff Stat Lab 09/22/23 13:39 Ordered Comprehensive Metabolic Panel Stat Lab 09/22/23 13:39 Ordered Prothrombin Time INR Stat Lab 09/22/23 13:39 Ordered Urinalysis and Microscopic Stat Lab 09/22/23 15:00 Received Urine Culture Stat Micro 09/22/23 15:00 Received Medical Decision Narrative: In summary, this patient is a 68-year-old male presenting to the Emergency Department for evaluation of hematuria after Rodriguez catheter exchange. Differential diagnoses considered include but are not limited to urethral injury, bladder injury, clotted off Rodriguez catheter, coagulopathy, anemia. Ruling out the most morbid conditions drove assessment. I reviewed patient's past medical records and noted previous evaluation in July for similar symptoms. On exam, the patient is in no acute distress, but he does have suprapubic tenderness and fullness as well as adonis blood in his Rodriguez catheter. It does not appear to be actively draining at this time. Bladder scan was obtained that demonstrated greater than 700 and his bladder despite Rodriguez catheter being in place. Labs were ordered including CBC, CMP, coags. CTA of the abdomen pelvis was also ordered. Bolus of IV fluids was ordered. After discussion with the patient, decision was made to try and irrigate the bladder, as I feel that his Rodriguez has clotted off given the adonis blood. Rodriguez catheter was removed, at which point he started having more adonis blood coming from his penis. A new Rodriguez catheter was placed with about 300 mL of bloody urine out. We did try to instill some sterile fluids without good return. At this time, patient care signed to the oncoming provider, Dr. Vora. <Zenon Vora MD - Last Filed: 09/22/23 16:36> Vital Signs: 09/22/23 13:14 09/22/23 13:30 09/22/23 14:00 Temperature 98.0 F Temperature Source Oral Pulse Rate 97 H 105 H Pulse Rate [Right Radial] 99 H Respiratory Rate 20 18 18 Blood Pressure 141/78 H 133/82 Blood Pressure [Right Arm] 138/103 H Blood Pressure Mean 100 97 Blood Pressure Mean [Right Arm] 114 02 Sat by Pulse Oximetry 96 95 93 L Oxygen Delivery Method Room Air 09/22/23 14:30 09/22/23 15:33 Temperature Temperature Source Pulse Rate 110 H Pulse Rate [Right Radial] Respiratory Rate 18 22 Blood Pressure 139/78 130/74 Blood Pressure [Right Arm] Blood Pressure Mean 96 98 Blood Pressure Mean [Right Arm] 02 Sat by Pulse Oximetry 97 97 Oxygen Delivery Method Orders (Tests/Meds): ED MEDICATIONS Generic Name Dose Route Start Last Admin Trade Name Freq PRN Reason Stop Dose Admin Lactated Ringer's 3,000 mls @ 998.983 mls/hr 09/22/23 14:25 Lactated Ringer's For Irr 3000ml IR 10/22/23 14:24 NEEDED PRN CONTINUOUS BLADDER IRRIGATION Discontinued Medications Generic Name Dose Route Start Last Admin Trade Name Freq PRN Reason Stop Dose Admin Lactated Ringer's 1,000 mls @ 999 mls/hr 09/22/23 14:40 09/22/23 16:00 Lactated Ringer's 1000 Ml Bag IV 09/22/23 15:40 999 mls/hr .Q1H1M ONE Administration ORDERS Category Date Time Status CT angio abdomen pelvis Stat Cat Scan 09/22/23 14:54 Ordered Activated Partial Thrombo Time Stat Lab 09/22/23 13:39 Ordered Complete Blood Count Auto Diff Stat Lab 09/22/23 13:39 Ordered Comprehensive Metabolic Panel Stat Lab 09/22/23 13:39 Ordered Prothrombin Time INR Stat Lab 09/22/23 13:39 Ordered Urinalysis and Microscopic Stat Lab 09/22/23 15:00 Received Urine Culture Stat Micro 09/22/23 15:00 Received Medical Decision Narrative: In summary, this patient is a 68-year-old male presenting to the Emergency Department for evaluation of hematuria after Rodriguez catheter exchange. Differential diagnoses considered include but are not limited to urethral injury, bladder injury, clotted off Rodriguez catheter, coagulopathy, anemia. Ruling out the most morbid conditions drove assessment. I reviewed patient's past medical records and noted previous evaluation in July for similar symptoms. On exam, the patient is in no acute distress, but he does have suprapubic tenderness and fullness as well as adonis blood in his Rodriguez catheter. It does not appear to be actively draining at this time. Bladder scan was obtained that demonstrated greater than 700 and his bladder despite Rodriguez catheter being in place. Labs were ordered including CBC, CMP, coags. CTA of the abdomen pelvis was also ordered. Bolus of IV fluids was ordered. After discussion with the patient, decision was made to try and irrigate the bladder, as I feel that his Rodriguez has clotted off given the adonis blood. Rodriguez catheter was removed, at which point he started having more adonis blood coming from his penis. A new Rodriguez catheter was placed with about 300 mL of bloody urine out. We did try to instill some sterile fluids without good return. At this time, patient care signed to the oncoming provider, Dr. Vora. Diony: I assumed primary responsibility for this patient after signout from previous physician. I agree with previous workup, I did very little for this patient's care. I was involved in coud? Rodriguez placement, unable to irrigate, flush, or retrieve clots given coud? tip. Very difficult Rodriguez placement. Intravenous access difficult to obtain. Because patient has many clots bedside ultrasound with large volume bladder, concern for impending bladder rupture. [facility] was contacted and case was discussed at length with hospitalist and urologist, recommended transfer, graciously. Because patient high risk for clinical decompensation if discharged, deemed appropriate for transfer and inpatient admission. Results were relayed to patient who voiced understanding and patient was agreeable to transfer, inpatient admission, and management. Patient was graciously accepted and transferred to [place] for further definitive management, under Dr. Peters and Sophie. Critical Care <Estephania Campa DO - Last Filed: 09/22/23 15:35> Critical Care Time Critical Care Time: No <Zenon Vora MD - Last Filed: 09/22/23 16:36> Critical Care Time Critical Care Time: Yes (ID) Attestation: On 09/22/23, the high probability of a clinically significant, sudden or life threatening deterioration of the following system(s) required my full and direct attention, intervention and personal management. The time I documented below is in addition to time spent performing reported procedures but includes the following listed in this critical care notation. Total Time Total Critical Care Time: 60
[2023-09-22 15:33] VITALS: BP 130/74; RESP 22; O2SAT 97
--- NOTE | 2023-09-22 15:51 | PC.NURSE ---
calling [facility] for transfer
--- NOTE | 2023-09-22 15:56 | PC.NURSE ---
[facility] to call back soon
[2023-09-22] MEDS: LACTATED RINGERS 1000ML 1,000 ML 999 ML IV (16:00)
[2023-09-22 16:11] LABS: Microscopic, Urine URINE MICROSCOPIC (MICROSCOPIC)
--- NOTE | 2023-09-22 16:30 | PC.NURSE ---
LONG PATEL speaking with Dr Barrios at this time
--- NOTE | 2023-09-22 16:33 | PC.NURSE ---
DR Barrios accepted will call back with 4room assignment
[2023-09-22 16:42] LABS: Appearance,Urine Turbid (Clear); Color,Urine Red (Yellow)
[2023-09-22 16:46] LABS: Basophils # 0.2 K/mm3 (0-0.2); Basophils % 0.6 % (0.1-2.0); Eosinophils # 0.2 K/mm3 (0.0-0.4); Eosinophils % 0.7 % (0.1-12.0); Hematocrit 47.5 % (42.0-52.0); Lymphocytes # 2.2 K/mm3 (0.7-4.5); Lymphocytes % 7.3 % (10-50); Mean Corpuscular HGB Conc 31.6 g/dL (31.8-35.4); Mean Corpuscular Hemoglobin 27.8 pg (27.0-31.2); Mean Corpuscular Volume 87.8 fl (80-94); Mean Platelet Volume 9.6 fl (7.4-10.4); Monocytes # 0.4 K/mm3 (0.1-1.0); Monocytes % 1.3 % (1.7-9.3); Neutrophils # 27.9 K/mm3 (1.8-7.8); Neutrophils % 90.2 % (37.0-80.0); Platelet Count 334 K/mm3 (142-424); Red Cell Distribution Width 18.6 % (11.5-17.5)
[2023-09-22 16:52] LABS: Chloride 89 mmol/L (98-107); Potassium 5.8 mmoL/L (3.5-5.1); Sodium 125 mmol/L (136-145)
[2023-09-22 16:54] LABS: Alanine Aminotransferase 35 U/L (12-78); Aspartate Amino Transferase 50 U/L (17-59); Blood Urea Nitrogen 25 mg/dl (9-20); Creatinine Clearance Estimated 56 mL/min (50-200); Estimated Glomerular Filt Rate 38 ml/min (>60); GFR (African American) 46 ML/MIN (>60)
[2023-09-22 16:55] LABS: Albumin Level 4.2 g/dl (3.5-5.0); Albumin/Globulin Ratio 1.3 (1.1-1.8); Alkaline Phosphatase 142 U/L (38-126); Anion Gap 25.8 mEq/L (5-15); Bilirubin,Total 1.5 mg/dl (0.2-1.3); Calcium 9.4 mg/dl (8.4-10.2); Carbon Dioxide 16 mmol/L (22.0-30.0); Globulin 3.2 g/dL (1.3-3.2); Glucose 356 mg/dl (74-100); Total Protein,Serum 7.4 g/dl (6.3-8.2)
[2023-09-22 16:58] LABS: Blood, Urine 3+ (Negative); Glucose,Urine (UA) 3+ (Negative); Ketones,Urine 2+ (Negative); Leukocyte Esterase,Urine 3+ (Negative); Nitrate,Urine POSITIVE (Negative); PH,Urine 7.5 (5.0-8.5); Protein,Urine 3+ (Negative)
[2023-09-22 16:59] LABS: MANUAL DIFFERENTIAL MANUAL DIFFERENTIAL (MANUAL DIFF)
--- NOTE | 2023-09-22 17:00 | PC.NURSE ---
called report to Chitra PERALES at [facility] on [address], answered all questions
[2023-09-22 17:02] LABS: Bilirubin,Urine 2+ (Negative); RBC,Urine TNTC #/hpf (0-3)
--- NOTE | 2023-09-22 17:02 | ECG_ITS ---
APPROVED REPORT Exam: Resting ECG HR:150 bpm ECG Measurements Heart Rate 150 AXES NH 96 P -30 QRSd 92 QRS -54 QT 297 T 52 QTc 383 Conclusion SINUS TACHYCARDIA WITH SHORT NH INTERVAL, POSSIBLE ATRIAL FLUTTER LEFT ANTERIOR FASCICULAR BLOCK [QRS AXIS <= -45, QR IN I, RS IN II] POSSIBLE ANTERIOR MYOCARDIAL INFARCTION , OF INDETERMINATE AGE [30 ms Q WAVE IN V3/V4, OR R < 0.2 mV IN V4] CRITICAL TEST RESULT UNCONFIRMED REPORT Electronically signed by : JAYDEN CASEY, 09/24/2023 03:01:44
[2023-09-22 17:03] LABS: Bacteria,Urine 1+ /lpf
[2023-09-22] MEDS: ONDANSETRON 4MG/2ML VIAL 4 MG IV (17:06)
--- NOTE | 2023-09-22 17:08 | PC.NURSE ---
bladder scan 946ml
--- NOTE | 2023-09-22 17:12 | PC.NURSE ---
PT TO CT
[2023-09-22] MEDS: 0.9 % SODIUM CHLORIDE 50 ML VIAL IV (17:18)
[2023-09-22] MEDS: SODIUM CHLORIDE 0.9% 10ML SYR (RAD ONLY) 10 ML IV (17:18)
[2023-09-22] MEDS: IOPAMIDOL-370 (76%);100ML BOTTLE 100 ML IV (17:18)
[2023-09-22] MEDS: CEFTRIAXONE SODIUM 2 GM in 0.9 % SODIUM CHLORIDE 100 ML IV (17:27)
--- NOTE | 2023-09-22 17:30 | PC.NURSE ---
spoke with patient JUAN JDaisy Bharti Nichole at [phone] and advised that patient is being transferred to [facility].
[2023-09-22 17:48] LABS: Lymphocytes % 10 % (10-50); Neutrophils % 89 % (42-76); Platelet Estimate Normal; RBC Morphology Normal; Total Cells Counted 100
--- NOTE | 2023-09-22 17:56 | PC.NURSE ---
pt being transferred at this time to [facility]
--- NOTE | 2023-09-22 18:07 | PC.NURSE ---
SWAPNAAD called with report after patient had already left facility that [place] cath is not in the bladder and there is debris in bladder probably from hemmorrhage. Relayed message to ROSALEE PERALES
[2023-09-22 18:10] VITALS: BP 99/60; PULSE 110; RESP 22; TEMP 36.7; O2SAT 94
== END 2023-09-22 18:12 | disposition short-term general hospital (02) ==
PROVIDERS: Emergency Provider Emergency Medicine
DX: T83.511A Infection and inflammatory reaction due to indwelling urethral catheter, initial encounter; B96.29 Other Escherichia coli [E. coli] as the cause of diseases classified elsewhere; T83.091A Other mechanical complication of indwelling urethral catheter, initial encounter; D72.829 Elevated white blood cell count, unspecified; E87.1 Hypo-osmolality and hyponatremia; E87.5 Hyperkalemia; R31.9 Hematuria, unspecified; R94.31 Abnormal electrocardiogram [ECG] [EKG]; E11.22 Type 2 diabetes mellitus with diabetic chronic kidney disease; N18.2 Chronic kidney disease, stage 2 (mild); I11.0 Hypertensive heart disease with heart failure; I50.22 Chronic systolic (congestive) heart failure; J44.9 Chronic obstructive pulmonary disease, unspecified; Z87.891 Personal history of nicotine dependence; Z79.4 Long term (current) use of insulin
CPT/HCPCS: 74174; 80053; 81001; 85007; 85025; 87086; 93005; 96365; 96366; 96367; 96375; 99285; J0696; J2405; Q9967

== ENCOUNTER 2023-09-29 11:42 | Emergency (ER) | payer MEDICARE, OTHER, SELFPAY ==
[2023-09-29 11:40] VITALS: BP 118/81; PULSE 65; RESP 18; TEMP 36.7; O2SAT 96; BMI 25.8
[2023-09-29 11:45] VITALS: PULSE 91; O2SAT 92
[2023-09-29 12:00] VITALS: BP 119/75; PULSE 89; O2SAT 93
--- NOTE | 2023-09-29 12:05 | CT_ITS ---
PROCEDURE INFORMATION: Exam: CT Abdomen And Pelvis With Contrast Exam date and time: 09/29/2023 12:39 PM Age: 68 years old Clinical indication: Abdominal pain; Acute; Prior surgery; Surgery date: 1-6 months; Surgery type: Urethral; Additional info: Recent urethral surg; Increasing abd/urethral pain TECHNIQUE: Imaging protocol: Computed tomography of the abdomen and pelvis with contrast. Radiation optimization: All CT scans at this facility use at least one of these dose optimization techniques: automated exposure control; mA and/or kV adjustment per patient size (includes targeted exams where dose is matched to clinical indication); or iterative reconstruction. Contrast material: ISOVUE; Contrast volume: 75 ml; Contrast route: IV; COMPARISON: CT ANGIO ABDOMEN PELVIS 09/22/2023 5:17 PM FINDINGS: Lungs: Bibasilar subsegmental atelectasis noted. Subtle tree-in-bud opacities in the lower lobe suspicious for bronchiolitis/aspiration. Liver: No focal hepatic lesions. Gallbladder and bile ducts: Cholelithiasis noted without pericholecystic fluid/stranding. No biliary ductal dilation. Pancreas: No peripancreatic fluid stranding. No main pancreatic ductal dilation. Spleen: No splenomegaly. Adrenal glands: The adrenal glands are normal. Kidneys and ureters: Nephrograms are symmetric. Nonobstructive left nephrolithiasis noted. No hydroureteronephrosis on either side. No solid lesions. Stomach and bowel: No bowel wall thickening or distention. Appendix: A normal appendix is identified. Intraperitoneal space: There is no evidence of free intraperitoneal or pelvic fluid. Vasculature: Proximal ascending aorta measures 4.2 x 3.7 cm (ectatic). The aorta demonstrates mild atherosclerotic calcification. Lymph nodes: No lymphadenopathy. Urinary bladder: Urinary bladder is decompressed around a Rodriguez catheter. Intravesicular air likely from recent instrumentation. Reproductive: Unremarkable as visualized. 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 No intra-articular collapse. No acute osseous abnormality. Multilevel degenerative changes of the included spine. Soft tissues: There is nonspecific subcutaneous air dissecting through the fascial planes of the right thigh. There is nonspecific gynecomastia. IMPRESSION: 1. No acute abnormality in the abdomen or pelvis. Nonobstructive left nephrolithiasis. 2. Subtle tree-in-bud opacities in the lower lobe suspicious for bronchiolitis/aspiration. 3. There is nonspecific subcutaneous air dissecting through the fascial planes of the right thigh.
--- NOTE | 2023-09-29 12:07 | ED_ITS ---
Discharge Plan Disposition Patient Disposition: Home, Self-Care Prescriptions Prescriptions: No Action ranolazine 500 mg tablet extended release 12 hr 500 mg PO Q12H Qty: 60 2RF Rx Instructions: do not break, crush, or chew tablet(s) Ozempic 2 mg/dose (8 mg/3 mL) pen injector SQ oxycodone 10 mg tablet 10 mg PO Q6H PRN (Reason: pain) 30 Days Qty: 120 0RF oxycodone 10 mg tablet 10 mg PO Q6H PRN (Reason: pain) 30 Days Qty: 120 0RF pregabalin 100 mg capsule 100 mg PO TID 30 Days Qty: 90 3RF allopurinol 300 mg tablet 300 mg PO DAILY 90 Days Qty: 90 3RF atorvastatin 40 mg tablet 40 mg PO HS 90 Days Qty: 90 2RF escitalopram oxalate 10 mg tablet 10 mg PO DAILY 90 Days Qty: 90 2RF isosorbide mononitrate 60 mg tablet extended release 24 hr 60 mg PO DAILY 90 Days Qty: 90 2RF montelukast 10 mg tablet 10 mg PO DAILY 90 Days Qty: 90 2RF nitroglycerin 0.4 mg tablet, sublingual 0.4 mg SUBLINGUAL Q5MINP PRN (Reason: chest pain) Qty: 90 0RF oxybutynin chloride 15 mg tablet extended release 24hr 15 mg PO DAILY 90 Days Qty: 90 2RF potassium chloride 20 mEq tablet extended release 20 meq PO DAILY 90 Days Qty: 90 2RF rivaroxaban 15 mg tablet 15 mg PO QPMWITHMEAL 90 Days Qty: 90 2RF tamsulosin 0.4 mg capsule 0.8 mg PO HS 90 Days Qty: 180 3RF tizanidine 4 mg tablet 4 mg PO HSP PRN (Reason: Muscle Spasm) Qty: 90 3RF insulin lispro 100 unit/mL insulin pen 25 unit SQ AC 60 Days Qty: 15 2RF budesonide 90 mcg/actuation aerosol powdr breath activated 1 inh inhalation BID 30 Days Qty: 1 4RF metoprolol succinate 25 mg tablet extended release 24 hr See Rx Instructions .ROUTE .COMPLEX Qty: 90 0RF Dose Instruction: TAKE ONE TABLET BY MOUTH EVERY DAY FOR high blood pressure Rx Instructions: TAKE ONE TABLET BY MOUTH EVERY DAY FOR high blood pressure pantoprazole 40 mg tablet,delayed release (DR/EC) 40 mg PO DAILY 60 Days Qty: 60 1RF topiramate [Topamax] 25 mg tablet 25 mg PO DAILY 90 Days Qty: 90 3RF Rx Instructions: Takes with 50 mg tablet for a total of 75 mg daily spironolactone 25 mg tablet See Rx Instructions .ROUTE .COMPLEX Qty: 180 4RF Dose Instruction: TAKE 1 TABLET BY MOUTH TWICE DAILY Rx Instructions: TAKE 1 TABLET BY MOUTH TWICE DAILY aripiprazole 5 mg tablet 5 mg PO DAILY Qty: 90 1RF levothyroxine 175 mcg tablet See Rx Instructions .ROUTE .COMPLEX Qty: 30 3RF Dose Instruction: TAKE ONE TABLET BY MOUTH EVERY DAY Rx Instructions: TAKE ONE TABLET BY MOUTH EVERY DAY diazepam 5 mg tablet 5 mg PO TID 90 Days Qty: 270 2RF oxycodone 10 mg tablet 10 mg PO Q4H PRN (Reason: chronic pain) 30 Days Qty: 120 0RF sulfamethoxazole-trimethoprim 800-160 mg tablet 1 tab PO BID 14 Days Qty: 28 0RF furosemide 40 mg tablet 40 mg PO BID 30 Days Qty: 90 0RF aspirin 81 mg tablet,chewable 81 mg PO DAILY topiramate 50 mg tablet 50 mg PO DAILY Patient Comments: TAKE 1 TABLET BY MOUTH DAILY FOR MIGRAINE Rx Instructions: Takes with 25 mg tablet for a total of 75 mg daily albuterol sulfate [Ventolin HFA] 90 mcg/actuation HFA aerosol inhaler 2 inh INHALATION Q4HP PRN (Reason: SOA) Patient Comments: INHALE 2 PUFFS BY MOUTH EVERY 4 TO 6 HOURS NEEDED FOR SHORTNESS OF BREATH OR WHEEZING insulin glargine [Basaglar KwikPen U-100 Insulin] 100 unit/mL (3 mL) insulin pen 80 unit SQ DAILY Patient Comments: ADMINISTER 70 UNITS UNDER THE SKIN EVERY MORNING cefdinir 300 mg capsule 300 mg PO BID 7 Days Qty: 14 0RF Referrals Follow up/Referrals: Paulo Brody DO [Primary Care Provider] - See instructions Activity Restrictions/Add. Instructions Additional Instructions/Restrictions: No emergent medical condition identified today but you do have a catheter associated urinary tract infection. After discussing the case with your urologist please continue your IM Rocephin shots keep the Rodriguez catheter that you currently have indwelling call their clinic first thing on Sunday to be seen next available appointment. Clinical Impressions Clinical Impression: Catheter-associated urinary tract infection, Post-op pain, Emphysema (subcutaneous) (surgical) resulting from a procedure Discharge ED Provider: Karla Mascorro General Adult HPI General Chief complaint: Shortness of Breath/Dyspnea Stated complaint: SOA, Weakness Time Seen by Provider: 09/29/23 12:01 Mode of Arrival: EMS Source of Information: Patient and EMS Limitations: No Limitations Description of Symptoms (Recalled from ER Triage Doc. by RN): shortness of air. weakness History of Present Illness HPI narrative: Patient is a 68-year-old male who was recently transported to [facility] for urethral tear requiring urethral emergency surgery. He was discharged a few days ago and is back to our emergency department today with increasing pain in his urethra and lower abdominal discomfort and pain. Does not mention or complain of any shortness of breath to me but does have some generalized weakness. No fevers or chills. Has an indwelling Rodriguez catheter. Related Data Home Medications Medication Instructions Recorded Confirmed aspirin 81 mg chewable tablet 81 mg PO DAILY Heart Health 03/29/23 09/10/23 topiramate 50 mg tablet 50 mg PO DAILY Migraines 04/12/23 09/10/23 albuterol sulfate 90 mcg/actuation 2 inh inhalation Q4HP PRN SOA 05/12/23 09/10/23 aerosol inhaler (Ventolin HFA) insulin glargine 100 unit/mL (3 80 unit SQ DAILY Diabetes 05/12/23 09/10/23 mL) subcutaneous pen (Basaglar KwikPen U-100 Insulin) semaglutide 2 mg/dose (8 mg/3 mL) mg SQ 06/14/23 09/10/23 subcutaneous pen injector (Ozempic) Previous Rx's Medication Instructions Recorded allopurinol 300 mg tablet 300 mg PO DAILY Gout 90 days #90 04/17/23 tabs atorvastatin 40 mg tablet 40 mg PO HS Cholesterol 90 days 04/17/23 #90 tabs budesonide 90 mcg/actuation breath 1 inh inhalation BID 30 days #1 ea 04/17/23 activated powder inhaler escitalopram oxalate 10 mg tablet 10 mg PO DAILY Mood 90 days #90 04/17/23 tabs insulin lispro 100 unit/mL 25 unit (0.25 mL) SQ AC Diabetes 04/17/23 subcutaneous pen 60 days #15 mL isosorbide mononitrate 60 mg 60 mg PO DAILY High Blood Pressure 11/14/23 tablet,extended release 24 hr 90 days #90 tabs montelukast 10 mg tablet 10 mg PO DAILY allergies 90 days 04/17/23 #90 tabs nitroglycerin 0.4 mg sublingual 0.4 mg sublingual Q5MINP PRN chest 04/17/23 tablet pain #90 tabs oxybutynin chloride 15 mg 15 mg PO DAILY Bladder 90 days #90 04/17/23 tablet,extended release 24 hr tabs potassium chloride 20 mEq 20 meq PO DAILY Supplement 90 days 04/17/23 tablet,extended release #90 tabs rivaroxaban 15 mg tablet 15 mg PO QPMWITHMEAL Blood 04/17/23 thinner/AFIB 90 days #90 tabs tamsulosin 0.4 mg capsule 0.8 mg (2 x 0.4 mg) PO HS Prostate 04/17/23 90 days #180 caps tizanidine 4 mg tablet 4 mg PO HSP PRN Muscle Spasm #90 04/17/23 tabs metoprolol succinate 25 mg See Rx Instructions .Route 05/31/23 tablet,extended release 24 hr .COMPLEX #90 tabs pantoprazole 40 mg tablet,delayed 40 mg PO DAILY Acid Reflux 60 days 06/05/23 release #60 tabs topiramate 25 mg tablet (Topamax) 25 mg PO DAILY Migraines 90 days 06/05/23 #90 tabs spironolactone 25 mg tablet See Rx Instructions .Route 07/02/23 .COMPLEX #180 tabs cefdinir 300 mg capsule 300 mg PO BID 7 days #14 caps 07/07/23 ranolazine 500 mg tablet,extended 500 mg PO Q12H #60 tabs 07/23/23 release,12 hr aripiprazole 5 mg tablet 5 mg PO DAILY Mood #90 tabs 08/20/23 levothyroxine 175 mcg tablet See Rx Instructions .Route 08/21/23 .COMPLEX #30 tabs diazepam 5 mg tablet 5 mg PO TID Tremors 90 days #270 09/04/23 tabs oxycodone 10 mg tablet 10 mg PO Q4H PRN chronic pain 30 09/04/23 days #120 tabs oxycodone 10 mg tablet 10 mg PO Q6H PRN pain 30 days #120 09/10/23 tabs oxycodone 10 mg tablet 10 mg PO Q6H PRN pain 30 days #120 09/10/23 tabs pregabalin 100 mg capsule 100 mg PO TID Pain 30 days #90 caps 09/10/23 sulfamethoxazole 800 1 tab PO BID 14 days #28 tabs 09/19/23 mg-trimethoprim 160 mg tablet furosemide 40 mg tablet 40 mg PO BID Fluid 30 days #90 tabs 09/24/23 Allergies Allergy/AdvReac Type Severity Reaction Status Date / Time gabapentin [From Neurontin] Allergy Intermediate Rash Verified 09/10/23 10:04 [facility] Disclaimer: The information contained in this section may have been updated after the patient was seen, as this information can be updated by other users. Medical History Acute exacerbation of chronic obstructive pulmonary disease Acute urinary retention Chronic pain At risk for osteoporosis Diabetes mellitus type 2 in obese At risk for polypharmacy Pneumonia Healthcare-associated pneumonia Chronic respiratory failure with hypoxia Chronic indwelling Rodriguez catheter Peritracheal mass Acute urinary retention Cauda equina syndrome Paralysis, progressive Encounter for immunization Atypical angina Chest pain Abnormal EKG Edema Leg pain, bilateral Tachycardia SOB (shortness of breath) Chronic systolic heart failure CKD (chronic kidney disease) stage 2, GFR 60-89 ml/min Diabetes mellitus COPD (chronic obstructive pulmonary disease) HLD (hyperlipidemia) HTN (hypertension) Surgical History H/O repair of rotator cuff Family History Other Diabetes Hypertension Stroke Social History Smoking Status: Never smoker alcohol intake: never substance use type: denies use current occupational status: unemployed Travel in the last 8 weeks: None household members: spouse housing: house caffeine: Yes ROS Obtained: Yes All systems reviewed & no additional complaints except as documented Physical Exam General General appearance: alert and in no apparent distress Respiratory Respiratory exam: Present normal lung sounds bilaterally Cardiovascular Cardiovascular exam: Present regular rate and normal rhythm Abdominal Exam Abdominal exam: Present soft, distention, tenderness (Diffusely tender) and other (Urethra shows no evidence of any active bleeding ulcerations or any lesions Rodriguez is in place) Neurological Exam Neurological exam: Present alert and oriented X3 Medical Decision Making [place] Inquiry Pt receiving controlled substance: No Vital Signs: 09/29/23 11:40 09/29/23 11:45 09/29/23 12:00 Temperature 98.1 F Temperature Source Oral Pulse Rate 91 H 89 Pulse Rate [Right] 65 Respiratory Rate 18 Blood Pressure 119/75 Blood Pressure [Right Arm] 118/81 Blood Pressure Mean [Right Arm] 93 02 Sat by Pulse Oximetry 96 92 L 93 L Oxygen Delivery Method Nasal Cannula Nasal Cannula Oxygen Flow Rate (LPM) 2 2 09/29/23 13:00 09/29/23 13:30 Temperature Temperature Source Pulse Rate 85 91 H Pulse Rate [Right] Respiratory Rate Blood Pressure 117/68 122/76 Blood Pressure [Right Arm] Blood Pressure Mean [Right Arm] 02 Sat by Pulse Oximetry 92 L 90 L Oxygen Delivery Method Nasal Cannula Nasal Cannula Oxygen Flow Rate (LPM) 2 2 Lab Data Lab Results 09/29/23 11:48: WBC 8.0, RBC 4.24 L, Hgb 11.8 L, Hct 36.0 L, MCV 84.8, MCH 27.7, MCHC 32.7, RDW 18.7 H, Plt Count 344, MPV 8.3, Neut % (Auto) 63.4, Lymph % (Auto) 28.4, [place] % (Auto) 5.7, Eos % (Auto) 1.4, Baso % (Auto) 1.1, Neut # (Auto) 5.1, Lymph # (Auto) 2.3, [place] # (Auto) 0.5, Eos # (Auto) 0.1, Baso # (Auto) 0.1, Sodium 134 L, Potassium 4.8, Chloride 96 L, Carbon Dioxide 32 H, Anion Gap 10.8, BUN 22 H, Creatinine 1.20, Estimated Creat Clear 70, Estimated GFR 61, Est GFR ( Amer) 73, Glucose 168 H, Calcium 10.1, Total Bilirubin 0.5, AST 37, ALT 27, Alkaline Phosphatase 102, Total Protein 7.5, Albumin 3.9, G lobulin 3.6 H, Albumin/Globulin Ratio 1.1 09/29/23 13:34: Urine Color Yellow, Urine Appearance Clear, Urine pH 7.0, Ur Specific [place] 1.010, Urine Protein Negative, Urine Glucose (UA) Negative, Urine Ketones Negative, Urine Blood 2+, Urine Nitrate Negative, Urine Bilirubin Negative, Urine Urobilinogen 0.2, Ur Leukocyte Esterase 2+ A, Urine RBC 3-5, Urine WBC 10-20, Ur Squamous Epith Cells Occasional, Urine Bacteria Trace 09/29/23 11:48 09/29/23 11:48 Orders (Tests/Meds): ED MEDICATIONS Discontinued Medications Generic Name Dose Route Start Last Admin Trade Name Freq PRN Reason Stop Dose Admin Lactated Ringer's 1,000 mls @ 999 mls/hr 09/29/23 12:15 09/29/23 12:31 Lactated Ringer's 1000 Ml Bag IV 09/29/23 13:15 999 mls/hr .Q1H1M DORYS Administration Iopamidol 75 ml 09/29/23 12:39 09/29/23 12:40 Iopamidol-370 (76%);100ml Bottle IV 09/29/23 12:40 75 ml ONCE ONE Administration Morphine Sulfate 4 mg 09/29/23 12:05 09/29/23 12:32 Morphine 4mg/Ml Syringe IV 09/29/23 12:06 4 mg ONCE ONE Administration Ondansetron HCl 4 mg 09/29/23 12:05 09/29/23 12:32 Ondansetron 4mg/2ml Vial IV 09/29/23 12:06 4 mg ONCE ONE Administration Sodium Chloride 10 ml 09/29/23 12:39 09/29/23 12:40 Sodium Chloride 0.9% 10ml Syr (Rad Only) IV 09/29/23 12:40 10 ml ONCE ONE Administration ORDERS Category Date Time Status CT abdomen pelvis w con Stat Cat Scan 09/29/23 12:05 Completed CBC w/Auto Diff [Complete Blood Count Auto Diff] Stat Lab 09/29/23 11:48 Completed CMP [Comprehensive Metabolic Panel] Stat Lab 09/29/23 11:48 Completed UA [Urinalysis and Microscopic] Stat Lab 09/29/23 13:34 Completed Urine Culture Stat Micro 09/29/23 13:34 Received Medical Decision Narrative: Patient with above history and physical with diffuse abdominal pain worsening pain specifically localized to the penis and the location where the catheter has inserted itself most likely normal postoperative pain given the recent injury and surgery. No evidence of any lesions or obvious infection. Will check his urine get a CT scan for further evaluation make sure there is no surgical pathology that is related or unrelated to the recent intervention. IV fluids pain medicine nausea medicine have been administered will reassess. CT scan was performed I personally interpreted which shows no acute intra- abdominal abnormality or nothing specifically in the urethral area or in the surrounding surgical site. Specifically no evidence of hematoma abscess etc. However there is subcutaneous emphysema on the right anterior lateral thigh. I went and reexamined the patient after looking at this he has no significant tenderness or soft tissue abnormalities erythema etc. in this area. He did have a Band-Aid over this location where he said he had recent antibiotic administration through an IM injection which could have introduced air. Additionally patient recently had surgery and certainly could have some subcutaneous emphysema after retroperitoneal or urethral surgery. Nonetheless this is not consistent with a necrotizing soft tissue infection right now. And will not look into any further pathology for the subcutaneous emphysema. Update 1:49 PM patient's daughter is at the bedside. Urinalysis returned and did show what appears to be urinary tract infection. Normally with the indwelling Rodriguez catheter we would either replace and initiate antibiotics or completely remove and do intermittent catheter. However after recent urethral surgery he will need an indwelling Rodriguez catheter to remain for reepithelialization. This is not something that I would typically take a catheter out for therefore I will discuss the case with the patient's urologist. And further discussed this with the patient. The patient's daughter did state that he was septic in the hospital with E. coli bacteremia and they have been giving the patient IM Rocephin at home. This should be adequate coverage for an ongoing urinary tract infection at the moment. Reassessment 2:10 PM I spoke with Dr. Piña who is on-call for Dr. Noyola the surgeon who operated on Mr. Nichole. We discussed the case we will keep the Rodirguez catheter indwelling at this point continue the IM Rocephin they will call the clinic on Sunday to be seen next available appointment. There is no evidence of any sepsis or systemic infection at this point patient was discharged in stable condition. Critical Care Critical Care Time Critical Care Time: No
[2023-09-29 12:15] LABS: Chloride 96 mmol/L (98-107); Potassium 4.8 mmoL/L (3.5-5.1); Sodium 134 mmol/L (136-145)
[2023-09-29 12:17] LABS: Blood Urea Nitrogen 22 mg/dl (9-20); Creatinine Clearance Estimated 70 mL/min (50-200); Estimated Glomerular Filt Rate 61 ml/min (>60); GFR (African American) 73 ML/MIN (>60)
[2023-09-29 12:18] LABS: Alanine Aminotransferase 27 U/L (12-78); Albumin Level 3.9 g/dl (3.5-5.0); Albumin/Globulin Ratio 1.1 (1.1-1.8); Alkaline Phosphatase 102 U/L (38-126); Anion Gap 10.8 mEq/L (5-15); Aspartate Amino Transferase 37 U/L (17-59); Bilirubin,Total 0.5 mg/dl (0.2-1.3); Calcium 10.1 mg/dl (8.4-10.2); Carbon Dioxide 32 mmol/L (22.0-30.0); Globulin 3.6 g/dL (1.3-3.2); Glucose 168 mg/dl (74-100); Total Protein,Serum 7.5 g/dl (6.3-8.2)
[2023-09-29 12:23] LABS: Basophils # 0.1 K/mm3 (0-0.2); Basophils % 1.1 % (0.1-2.0); Eosinophils # 0.1 K/mm3 (0.0-0.4); Eosinophils % 1.4 % (0.1-12.0); Hemoglobin 11.8 g/dL (14.1-18.0); Lymphocytes # 2.3 K/mm3 (0.7-4.5); Lymphocytes % 28.4 % (10-50); Mean Corpuscular HGB Conc 32.7 g/dL (31.8-35.4); Mean Corpuscular Hemoglobin 27.7 pg (27.0-31.2); Mean Corpuscular Volume 84.8 fl (80-94); Mean Platelet Volume 8.3 fl (7.4-10.4); Monocytes # 0.5 K/mm3 (0.1-1.0); Monocytes % 5.7 % (1.7-9.3); Neutrophils # 5.1 K/mm3 (1.8-7.8); Neutrophils % 63.4 % (37.0-80.0); Platelet Count 344 K/mm3 (142-424); Red Blood Count 4.24 M/mm3 (4.60-6.20); Red Cell Distribution Width 18.7 % (11.5-17.5)
[2023-09-29] MEDS: LACTATED RINGERS 1000ML 1,000 ML 999 ML IV (12:31)
[2023-09-29] MEDS: MORPHINE 4MG/ML SYRINGE 4 MG IV (12:32)
[2023-09-29] MEDS: ONDANSETRON 4MG/2ML VIAL 4 MG IV (12:32)
[2023-09-29] MEDS: IOPAMIDOL-370 (76%);100ML BOTTLE 75 ML IV (12:40)
[2023-09-29] MEDS: SODIUM CHLORIDE 0.9% 10ML SYR (RAD ONLY) 10 ML IV (12:40)
[2023-09-29 13:00] VITALS: BP 117/68; PULSE 85; O2SAT 92
[2023-09-29 13:30] VITALS: BP 122/76; PULSE 91; O2SAT 90
[2023-09-29 13:38] LABS: Microscopic, Urine URINE MICROSCOPIC (MICROSCOPIC)
[2023-09-29 13:40] LABS: Appearance,Urine CLEAR (Clear); Bilirubin,Urine Negative (Negative); Blood, Urine 2+ (Negative); Color,Urine YELLOW (Yellow); Glucose,Urine (UA) Negative (Negative); Ketones,Urine Negative (Negative); Leukocyte Esterase,Urine 2+ (Negative); Nitrate,Urine Negative (Negative); Protein,Urine Negative (Negative); Urobilinogen,Urine 0.2 EU/dl (0.2)
[2023-09-29 13:52] LABS: Bacteria,Urine Trace /lpf; Squamous Epithelial Cell,Urine Occasional #/hpf (0-5)
--- NOTE | 2023-09-29 13:53 | PC.NURSE ---
iraida calling [facility] transfer center for er
--- NOTE | 2023-09-29 13:56 | PC.NURSE ---
called [facility] transfer line per Dr Mascorro for Urology Consult.
--- NOTE | 2023-09-29 14:05 | PC.NURSE ---
Dr. Mascorro on the phone with Keenan Piña [facility]-Urology.
[2023-09-29 14:23] VITALS: BP 120/70; PULSE 82; RESP 16; TEMP 36.7; O2SAT 96
== END 2023-09-29 14:28 | disposition home or self-care (01) ==
PROVIDERS: Emergency Provider Student in an Organized Health Care Education/Training Program; PCP Internal Medicine
DX: T83.511A Infection and inflammatory reaction due to indwelling urethral catheter, initial encounter (principal); T81.82XA Emphysema (subcutaneous) resulting from a procedure, initial encounter; J44.9 Chronic obstructive pulmonary disease, unspecified; E11.9 Type 2 diabetes mellitus without complications; N18.9 Chronic kidney disease, unspecified; I11.0 Hypertensive heart disease with heart failure; I50.22 Chronic systolic (congestive) heart failure; Z79.4 Long term (current) use of insulin
CPT/HCPCS: 74177; 80053; 81001; 85025; 87086; 96361; 96374; 96375; 99285; J2405; Q9967

== ENCOUNTER 2023-10-19 23:22 | Inpatient (IN) | payer MEDICARE, OTHER, SELFPAY ==
[2023-10-19 23:25] VITALS: BMI 31.3
--- NOTE | 2023-10-19 23:26 | XR_ITS ---
PROCEDURE INFORMATION: Exam: XR Chest Exam date and time: 10/19/2023 11:29 PM Age: 68 years old Clinical indication: Other: Acute nausea onset; Additional info: Acute nausea onset/cardiac history TECHNIQUE: Imaging protocol: Radiologic exam of the chest. Views: 1 view. COMPARISON: CR XR CHEST PORTABLE 05/30/2023 8:17 PM FINDINGS: Lungs: Unremarkable. No consolidation. Pleural spaces: Unremarkable. No pleural effusion. No pneumothorax. Heart/Mediastinum: Cardiomegaly. Bones/joints: Unremarkable. IMPRESSION: No acute findings.
[2023-10-19 23:30] VITALS: BP 124/61; PULSE 90; O2SAT 97
--- NOTE | 2023-10-19 23:32 | ECG_ITS ---
APPROVED REPORT Exam: Resting ECG HR:89 bpm ECG Measurements Heart Rate 89 AXES VT 170 P 32 QRSd 101 QRS 28 QT 353 T 13 QTc 400 Conclusion SINUS RHYTHM POSSIBLE ANTERIOR MYOCARDIAL INFARCTION , OF INDETERMINATE AGE [30 ms Q WAVE IN V3/V4, OR R < 0.2 mV IN V4] ABNORMAL ECG UNCONFIRMED REPORT Electronically signed by : JAYDEN CASEY, 10/20/2023 06:00:34
[2023-10-19 23:33] VITALS: BP 121/79; PULSE 95; RESP 20; TEMP 36.4; O2SAT 98; BMI 30.7
--- NOTE | 2023-10-19 23:42 | ED_ITS ---
Discharge Plan Disposition Patient Disposition: Admitted Prescriptions Prescriptions: No Action ranolazine 500 mg tablet extended release 12 hr 500 mg PO Q12H Qty: 60 2RF Rx Instructions: do not break, crush, or chew tablet(s) Ozempic 2 mg/dose (8 mg/3 mL) pen injector SQ oxycodone 10 mg tablet 10 mg PO Q6H PRN (Reason: pain) 30 Days Qty: 120 0RF oxycodone 10 mg tablet 10 mg PO Q6H PRN (Reason: pain) 30 Days Qty: 120 0RF pregabalin 100 mg capsule 100 mg PO TID 30 Days Qty: 90 3RF allopurinol 300 mg tablet 300 mg PO DAILY 90 Days Qty: 90 3RF atorvastatin 40 mg tablet 40 mg PO HS 90 Days Qty: 90 2RF isosorbide mononitrate 60 mg tablet extended release 24 hr 60 mg PO DAILY 90 Days Qty: 90 2RF montelukast 10 mg tablet 10 mg PO DAILY 90 Days Qty: 90 2RF nitroglycerin 0.4 mg tablet, sublingual 0.4 mg SUBLINGUAL Q5MINP PRN (Reason: chest pain) Qty: 90 0RF oxybutynin chloride 15 mg tablet extended release 24hr 15 mg PO DAILY 90 Days Qty: 90 2RF potassium chloride 20 mEq tablet extended release 20 meq PO DAILY 90 Days Qty: 90 2RF rivaroxaban 15 mg tablet 15 mg PO QPMWITHMEAL 90 Days Qty: 90 2RF tamsulosin 0.4 mg capsule 0.8 mg PO HS 90 Days Qty: 180 3RF tizanidine 4 mg tablet 4 mg PO HSP PRN (Reason: Muscle Spasm) Qty: 90 3RF insulin lispro 100 unit/mL insulin pen 25 unit SQ AC 60 Days Qty: 15 2RF budesonide 90 mcg/actuation aerosol powdr breath activated 1 inh inhalation BID 30 Days Qty: 1 4RF topiramate [Topamax] 25 mg tablet 25 mg PO DAILY 90 Days Qty: 90 3RF Rx Instructions: Takes with 50 mg tablet for a total of 75 mg daily spironolactone 25 mg tablet See Rx Instructions .ROUTE .COMPLEX Qty: 180 4RF Dose Instruction: TAKE 1 TABLET BY MOUTH TWICE DAILY Rx Instructions: TAKE 1 TABLET BY MOUTH TWICE DAILY aripiprazole 5 mg tablet 5 mg PO DAILY Qty: 90 1RF levothyroxine 175 mcg tablet See Rx Instructions .ROUTE .COMPLEX Qty: 30 3RF Dose Instruction: TAKE ONE TABLET BY MOUTH EVERY DAY Rx Instructions: TAKE ONE TABLET BY MOUTH EVERY DAY diazepam 5 mg tablet 5 mg PO TID 90 Days Qty: 270 2RF oxycodone 10 mg tablet 10 mg PO Q4H PRN (Reason: chronic pain) 30 Days Qty: 120 0RF sulfamethoxazole-trimethoprim 800-160 mg tablet 1 tab PO BID 14 Days Qty: 28 0RF furosemide 40 mg tablet 40 mg PO BID 30 Days Qty: 90 0RF escitalopram oxalate 10 mg tablet See Rx Instructions .ROUTE .COMPLEX Qty: 90 0RF Dose Instruction: TAKE 1 TABLET BY MOUTH DAILY FOR DEPRESSION Rx Instructions: TAKE 1 TABLET BY MOUTH DAILY FOR DEPRESSION metoprolol succinate 25 mg tablet extended release 24 hr See Rx Instructions .ROUTE .COMPLEX Qty: 90 0RF Dose Instruction: TAKE ONE TABLET BY MOUTH EVERY DAY FOR high blood pressure Rx Instructions: TAKE ONE TABLET BY MOUTH EVERY DAY FOR high blood pressure pantoprazole 40 mg tablet,delayed release (DR/EC) See Rx Instructions .ROUTE .COMPLEX Qty: 60 0RF Dose Instruction: TAKE ONE TABLET BY MOUTH EVERY DAY FOR acid reflux Rx Instructions: TAKE ONE TABLET BY MOUTH EVERY DAY FOR acid reflux aspirin 81 mg tablet,chewable 81 mg PO DAILY topiramate 50 mg tablet 50 mg PO DAILY Patient Comments: TAKE 1 TABLET BY MOUTH DAILY FOR MIGRAINE Rx Instructions: Takes with 25 mg tablet for a total of 75 mg daily albuterol sulfate [Ventolin HFA] 90 mcg/actuation HFA aerosol inhaler 2 inh INHALATION Q4HP PRN (Reason: SOA) Patient Comments: INHALE 2 PUFFS BY MOUTH EVERY 4 TO 6 HOURS NEEDED FOR SHORTNESS OF BREATH OR WHEEZING insulin glargine [Basaglar KwikPen U-100 Insulin] 100 unit/mL (3 mL) insulin pen 80 unit SQ DAILY Patient Comments: ADMINISTER 70 UNITS UNDER THE SKIN EVERY MORNING cefdinir 300 mg capsule 300 mg PO BID 7 Days Qty: 14 0RF Referrals Follow up/Referrals: Provider,Referral, MD [Primary Care Provider] - See instructions Clinical Impressions Clinical Impression: Acute hyponatremia, Abdominal pain UTI (urinary tract infection) due to urinary indwelling catheter Qualifiers: Indwelling urinary catheter type: indwelling urethral catheter Encounter type: initial encounter Qualified Code(s): T83.511A - Infection and inflammatory reaction due to indwelling urethral catheter, initial encounter Instructions Patient Instructions: DI for Diarrhea and Traveler's Diarrhea -- Adult, DI for Diarrhea and Traveler's Diarrhea -- Child, DI for Nausea -- Adult, DI for Nausea -- Child Discharge ED Provider: Natanael Moran Adult HPI General Chief complaint: Nausea/Vomiting/Diarrhea Stated complaint: N/V Time Seen by Provider: 10/19/23 23:23 Mode of Arrival: EMS Source of Information: Patient and EMS Limitations: Physical Limitations Description of Symptoms (Recalled from ER Triage Doc. by RN): pt to ED via EMS with c/o N/V and RLQ abd pain starting at 1000 this morning. pt reports he took zofran and phenergren about 1 hour ago and he is no longer N/V. last bm 1 1/2 hr ago History of Present Illness HPI narrative: 68-year-old male with history of prior cauda equina syndrome and chronic urinary retention with chronic indwelling Rodriguez, recent urethral repair after a laceration from Rodriguez's, COPD, hypertension hyperlipidemia, diabetes presents with vomiting and abdominal pain. He reports that he has been vomiting since about 10:00 today. He is continue to have normal bowel movements today. He reports abdominal pain, more so on the right lower aspect. Nothing like this has happened before. Vomitus is yellow, not blood containing. He denies any chest pain. He reports that he has been much more thirsty than normal for the last few days, has been drinking more water. Related Data Home Medications Medication Instructions Recorded Confirmed aspirin 81 mg chewable tablet 81 mg PO DAILY Heart Health 03/29/23 09/10/23 topiramate 50 mg tablet 50 mg PO DAILY Migraines 04/12/23 09/10/23 albuterol sulfate 90 mcg/actuation 2 inh inhalation Q4HP PRN SOA 05/12/23 09/10/23 aerosol inhaler (Ventolin HFA) insulin glargine 100 unit/mL (3 80 unit SQ DAILY Diabetes 05/12/23 09/10/23 mL) subcutaneous pen (Basaglar KwikPen U-100 Insulin) semaglutide 2 mg/dose (8 mg/3 mL) mg SQ 06/14/23 09/10/23 subcutaneous pen injector (Ozempic) Previous Rx's Medication Instructions Recorded allopurinol 300 mg tablet 300 mg PO DAILY Gout 90 days #90 04/17/23 tabs atorvastatin 40 mg tablet 40 mg PO HS Cholesterol 90 days 04/17/23 #90 tabs budesonide 90 mcg/actuation breath 1 inh inhalation BID 30 days #1 ea 04/17/23 activated powder inhaler insulin lispro 100 unit/mL 25 unit (0.25 mL) SQ AC Diabetes 04/17/23 subcutaneous pen 60 days #15 mL isosorbide mononitrate 60 mg 60 mg PO DAILY High Blood Pressure 04/17/23 tablet,extended release 24 hr 90 days #90 tabs montelukast 10 mg tablet 10 mg PO DAILY allergies 90 days 04/17/23 #90 tabs nitroglycerin 0.4 mg sublingual 0.4 mg sublingual Q5MINP PRN chest 04/17/23 tablet pain #90 tabs oxybutynin chloride 15 mg 15 mg PO DAILY Bladder 90 days #90 04/17/23 tablet,extended release 24 hr tabs potassium chloride 20 mEq 20 meq PO DAILY Supplement 90 days 04/17/23 tablet,extended release #90 tabs rivaroxaban 15 mg tablet 15 mg PO QPMWITHMEAL Blood 04/17/23 thinner/AFIB 90 days #90 tabs tamsulosin 0.4 mg capsule 0.8 mg (2 x 0.4 mg) PO HS Prostate 04/17/23 90 days #180 caps tizanidine 4 mg tablet 4 mg PO HSP PRN Muscle Spasm #90 04/17/23 tabs topiramate 25 mg tablet (Topamax) 25 mg PO DAILY Migraines 90 days 06/05/23 #90 tabs spironolactone 25 mg tablet See Rx Instructions .Route 07/02/23 .COMPLEX #180 tabs cefdinir 300 mg capsule 300 mg PO BID 7 days #14 caps 07/07/23 ranolazine 500 mg tablet,extended 500 mg PO Q12H #60 tabs 07/23/23 release,12 hr aripiprazole 5 mg tablet 5 mg PO DAILY Mood #90 tabs 08/20/23 levothyroxine 175 mcg tablet See Rx Instructions .Route 08/21/23 .COMPLEX #30 tabs diazepam 5 mg tablet 5 mg PO TID Tremors 90 days #270 09/04/23 tabs oxycodone 10 mg tablet 10 mg PO Q4H PRN chronic pain 30 09/04/23 days #120 tabs oxycodone 10 mg tablet 10 mg PO Q6H PRN pain 30 days #120 09/10/23 tabs oxycodone 10 mg tablet 10 mg PO Q6H PRN pain 30 days #120 09/10/23 tabs pregabalin 100 mg capsule 100 mg PO TID Pain 30 days #90 caps 09/10/23 sulfamethoxazole 800 1 tab PO BID 14 days #28 tabs 09/19/23 mg-trimethoprim 160 mg tablet furosemide 40 mg tablet 40 mg PO BID Fluid 30 days #90 tabs 09/24/23 escitalopram oxalate 10 mg tablet See Rx Instructions .Route 10/01/23 .COMPLEX #90 tabs metoprolol succinate 25 mg See Rx Instructions .Route 10/15/23 tablet,extended release 24 hr .COMPLEX #90 tabs pantoprazole 40 mg tablet,delayed See Rx Instructions .Route 10/15/23 release .COMPLEX #60 tabs Allergies Allergy/AdvReac Type Severity Reaction Status Date / Time gabapentin [From Neurontin] Allergy Intermediate Rash Verified 09/10/23 10:04 [facility] Disclaimer: The information contained in this section may have been updated after the patient was seen, as this information can be updated by other users. Medical History Acute exacerbation of chronic obstructive pulmonary disease Acute urinary retention Chronic pain At risk for osteoporosis Diabetes mellitus type 2 in obese At risk for polypharmacy Pneumonia Healthcare-associated pneumonia Chronic respiratory failure with hypoxia Chronic indwelling Rodriguez catheter Peritracheal mass Acute urinary retention Cauda equina syndrome Paralysis, progressive Encounter for immunization Atypical angina Chest pain Abnormal EKG Edema Leg pain, bilateral Tachycardia SOB (shortness of breath) Chronic systolic heart failure CKD (chronic kidney disease) stage 2, GFR 60-89 ml/min Diabetes mellitus COPD (chronic obstructive pulmonary disease) HLD (hyperlipidemia) HTN (hypertension) Surgical History H/O repair of rotator cuff Family History Other Diabetes Hypertension Stroke Social History Smoking Status: Never smoker alcohol intake: never substance use type: denies use current occupational status: unemployed Travel in the last 8 weeks: None household members: spouse housing: house caffeine: Yes ROS Obtained: Yes All systems reviewed & no additional complaints except as documented Physical Exam General General appearance: alert and in no apparent distress Head Head exam: atraumatic and normocephalic Eye Eye exam: Present normal appearance, PERRL and EOMI ENT ENT exam: Present normal oropharynx and normal external ear exam Neck Neck exam: Present normal inspection and full ROM Chest Chest inspection: Present normal inspection and symmetric chest wall rise; Absent tenderness Respiratory Respiratory exam: Present normal lung sounds bilaterally; Absent respiratory distress Cardiovascular Cardiovascular exam: Present regular rate and normal rhythm Abdominal Exam Abdominal exam: Present soft, distention and tenderness (Mild, generalized, worse in the lower abdomen); Absent guarding Extremities Exam Extremities exam: Present normal inspection; Absent edema or joint swelling Back Exam Back exam: Present normal inspection; Absent tenderness Neurological Exam Neurological exam: Present alert and oriented X3 (Poor historian); Absent motor sensory deficit Psychiatric Psychiatric exam: Present normal affect and normal mood Skin Skin exam: Present warm, dry and normal color Lymphatic Lymphatic Findings: no adenopathy Medical Decision Making Medical Records Medical records reviewed: Yes I reviewed the patient's medical records. [place] Inquiry Pt receiving controlled substance: No [place] was queried for this patient: No Vital Signs: 10/19/23 23:30 10/19/23 23:33 10/20/23 00:31 Temperature 97.6 F Temperature Source Oral Pulse Rate 90 Pulse Rate [Left Radial] 95 H Respiratory Rate 20 Blood Pressure 124/61 127/71 Blood Pressure [Right Arm] 121/79 Blood Pressure Mean 89 Blood Pressure Mean [Right Arm] 93 Blood Pressure Source [Right Arm] Automatic Cuff Blood Pressure Position [Right Arm] Sitting 02 Sat by Pulse Oximetry 97 98 Oxygen Delivery Method Room Air 10/20/23 01:30 Temperature Temperature Source Pulse Rate 98 H Pulse Rate [Left Radial] Respiratory Rate Blood Pressure 134/81 Blood Pressure [Right Arm] Blood Pressure Mean 98 Blood Pressure Mean [Right Arm] Blood Pressure Source [Right Arm] Blood Pressure Position [Right Arm] 02 Sat by Pulse Oximetry 99 Oxygen Delivery Method Room Air Lab Data Lab results reviewed: Yes I reviewed the patient's lab results. Lab Results 10/19/23 00:12: WBC 14.2 H, RBC 4.81, Hgb 13.6 L, Hct 40.5 L, MCV 84.2, MCH 28.3, MCHC 33.6, RDW 17.4, Plt Count 250, MPV 9.9, Neut % (Auto) 77.9, Lymph % (Auto) 12.9, [place] % (Auto) 7.3, Eos % (Auto) 1.5, Baso % (Auto) 0.4, Neut # (Auto) 11.1 H, Lymph # (Auto) 1.8, [place] # (Auto) 1.0, Eos # (Auto) 0.2, Baso # (Auto) 0.1, Sodium 109 L*, Potassium 4.9, Chloride 73 L, Carbon Dioxide 18 L, A nion Gap 22.9 H, BUN 18, Creatinine 1.00, Estimated Creat Clear 103, Estimated GFR 75, Est GFR ( Amer) 90, Glucose 169 H, Calcium 9.7, Total Bilirubin 1.3, AST 57, ALT 29, Alkaline Phosphatase 127 H, Troponin I < 0.01, Total Protein 9.0 H, Albumin 4.9, Globulin 4.1 H, Albumin/Globulin Ratio 1.2 10/20/23 00:12: Lactate 1.9, Magnesium 1.7, Lipase 202 10/20/23 00:46: VBG pH 7.43 H, VBG pCO2 18.4 L, VBG pO2 166.9 H, VBG HCO3 12.0 L , VBG Total CO2 12.6 L, VBG O2 Saturation 98.7 H, VBG Base Excess -12.3 L, VBG Lactic Acid 13.6 H 10/20/23 00:50: Urine Color Yellow, Urine Appearance Cloudy, Urine pH 6.0, Ur Specific [place] 1.025, Urine Protein 2+, Urine Glucose (UA) Negative, Urine Ketones Negative, Urine Blood 3+, Urine Nitrate Negative, Urine Bilirubin 1+ A, Urine Urobilinogen 0.2, Ur Leukocyte Esterase 2+ A, Urine RBC 5-10, Urine WBC Tntc, Ur Squamous Epith Cells 10-20, Urine Bacteria 3+, Urine Sodium 13.0 L 10/20/23 01:16: Sodium 116 L 10/20/23 02:05: Lactate 2.8 H, Troponin I < 0.01 10/19/23 00:12 10/20/23 01:16 Orders (Tests/Meds): ED MEDICATIONS Generic Name Dose Route Start Last Admin Trade Name Santiago PRN Reason Stop Dose Admin Sodium Chloride 10 ml 10/20/23 01:11 10/20/23 01:12 Sodium Chloride 0.9% 10ml Syr (Rad Only) IV 11/19/23 01:10 10 ml NEEDED PRN Administration Maintain IV Site Discontinued Medications Generic Name Dose Route Start Last Admin Trade Name Freq PRN Reason Stop Dose Admin Lactated Ringer's 1,000 mls @ 999 mls/hr 10/19/23 23:45 10/19/23 23:59 Lactated Ringer's 1000 Ml Bag IV 10/20/23 00:45 999 mls/hr .Q1H1M DORYS Administration Meropenem 1 gm/ Sodium 100 mls @ 100 mls/hr 10/20/23 02:29 Chloride IV 10/20/23 02:30 ONCE ONE Iopamidol 75 ml 10/20/23 01:11 10/20/23 01:12 Iopamidol-370 (76%);100ml Bottle IV 10/20/23 01:12 75 ml ONCE ONE Administration ORDERS Category Date Time Status CT abdomen pelvis w con Stat Cat Scan 10/19/23 23:49 Completed Chest XR -- portable [XR chest portable] Stat Exams 10/19/23 23:26 Completed Complete Blood Count Auto Diff Stat Lab 10/19/23 00:12 Completed Comprehensive Metabolic Panel Stat Lab 10/19/23 00:12 Completed Lactic Acid Stat Lab 10/19/23 23:49 Completed Lactic Acid Stat Lab 10/20/23 02:05 Completed Lipase Stat Lab 10/19/23 23:49 Completed Magnesium Stat Lab 10/19/23 23:49 Completed Osmolality Stat Lab 10/20/23 00:50 Received Sodium Stat Lab 10/20/23 01:16 Completed Sodium,Urine Random Stat Lab 10/20/23 00:50 Completed Troponin I Q3H Lab 10/20/23 02:05 Completed Troponin I Q3H Lab 10/20/23 05:30 Ordered Troponin I Stat Lab 10/19/23 00:12 Completed UA [Urinalysis and Microscopic] Stat Lab 10/20/23 00:50 Completed Blood Culture Stat Micro 10/20/23 02:05 Received Urine Culture Stat Micro 10/20/23 00:50 Received VBG [Venous Blood Gas] Stat RT 10/20/23 00:46 Completed ECG Data Tracing #1: I reviewed this ECG and interpreted as documented below: Sinus rhythm, rate of 89, no significant ST changes, isolated T wave inversions in lead III, artifact limits interpretation. ECG initial impression date: 10/19/23 ECG initial impression time: 23:35 Medical Decision Narrative: 68-year-old male with extensive past medical history as documented above including chronic indwelling Rodriguez and recurrent urinary tract infections presents with nausea and vomiting and abdominal pain today. History was obtained interactive discussion with patient, chart review. On arrival, patient is [afebrile, hemodynamically stable, satting appropriately, alert, oriented x4, GCS 15], moving all extremities spontaneously. Full physical exam performed and significant for mild abdominal distention and tenderness, worse in the lower abdomen. Differential includes but is not limited to UTI, bowel obstruction, gastroenteritis, pancreatitis, cholecystitis, appendicitis, Patient was given 1 L fluid bolus, Tylenol, Zofran for symptomatic management and correction of underlying abnormalities. Workup initiated including CBC CMP VBG lipase lactate CT abdomen pelvis IV contrast. Patient's Rodriguez was exchanged and a fresh urine sample was sent. On re-evaluation, patient [remains afebrile, HD stable.] continues to have mild abd pain. Laboratory workup independently interpreted by me and significant for severe hyponatremia with sodium 109. on repeat, it was 116. Patient is also hypochloremic with mildly elevated anion gap. Initial lactate was normal at 1.9. The lactate on the VBG came back markedly elevated at 13. Repeat lactate taken immediately came back at 2.8. Urine sodium is appropriately low given hyponatremia. Urine and serum osmolality not yet returned. Initial troponin undetectably low. Urine shows too numerous to count white blood cells and 3+ bacteria, negative nitrates. Imaging independently interpreted by me and significant for no acute intra- abdominal pathology, specifically no evidence of bowel perforation, appendicitis, cholecystitis, ureterolithiasis etc.. See radiology read for full review of final results. CTA for mesenteric ischemia was considered, but deemed unnecessary due to history and exam. Given patient history, exam and workup, patient's presentation most likely represents hyponatremia of uncertain underlying etiology. I am also concerned that patient may have a complicated UTI from indwelling Rodriguez given serum leukocytosis, too numerous to count WBCs and 3+ bacteria in the urine. On review of his prior urine results, he has history of extensively resistant bacteria. Given this, patient was initiated on meropenem for coverage of possible UTI. Blood cultures were obtained. I had interactive discussion with patient regarding admission. I had interact discussion with hospitalist regarding admission. Patient is admitted in stable condition for further evaluation and management. Procedures Risk/Benefits of Procedure(s) Were Explained: Yes Critical Care Critical Care Time Critical Care Time: Yes Attestation: On 10/19/23, the high probability of a clinically significant, sudden or life threatening deterioration of the following system(s) required my full and direct attention, intervention and personal management. The time I documented below is in addition to time spent performing reported procedures but includes the following listed in this critical care notation. Total Time Total Critical Care Time: 35
--- NOTE | 2023-10-19 23:49 | CT_ITS ---
PROCEDURE INFORMATION: Exam: CT Abdomen And Pelvis With Contrast Exam date and time: 10/20/2023 12:48 AM Age: 68 years old Clinical indication: Vomiting; Additional info: Persistent vomiting, lower abd pain TECHNIQUE: Imaging protocol: Computed tomography of the abdomen and pelvis with contrast. Radiation optimization: All CT scans at this facility use at least one of these dose optimization techniques: automated exposure control; mA and/or kV adjustment per patient size (includes targeted exams where dose is matched to clinical indication); or iterative reconstruction. Contrast material: ISOVUE; Contrast volume: 75 ml; Contrast route: IV; COMPARISON: CT ABDOMEN PELVIS W CON 09/29/2023 12:39 PM FINDINGS: Tubes, catheters and devices: Rodriguez catheter. Liver: Normal. No mass. Gallbladder and bile ducts: Normal. No calcified stones. No ductal dilation. Pancreas: Normal. No ductal dilation. Spleen: Normal. No splenomegaly. Adrenal glands: Normal. No mass. Kidneys and ureters: Punctate non-obstructing right renal stone. No hydronephrosis. Stomach and bowel: Constipation. No colitis or small bowel obstruction. Appendix: No evidence of appendicitis. Intraperitoneal space: Unremarkable. No free air. No significant fluid collection. Vasculature: Unremarkable. No abdominal aortic aneurysm. Lymph nodes: Unremarkable. No enlarged lymph nodes. Urinary bladder: Unremarkable as visualized. Reproductive: Unremarkable as visualized. Bones/joints: Unremarkable. No acute fracture. Soft tissues: Small bilateral inguinal hernias with fat IMPRESSION: No acute findings.
[2023-10-19] MEDS: LACTATED RINGERS 1000ML 1,000 ML 999 ML IV (23:59)
[2023-10-20] VITALS (12 sets, daily range): BP systolic 108–134; BP diastolic 58–81; PULSE 87–116; RESP 16–24; TEMP 36.7–37.2; O2SAT 96–99; BMI 28.8
[2023-10-20 00:24] LABS: Basophils # 0.1 K/mm3 (0-0.2); Basophils % 0.4 % (0.1-2.0); Eosinophils # 0.2 K/mm3 (0.0-0.4); Eosinophils % 1.5 % (0.1-12.0); Hematocrit 40.5 % (42.0-52.0); Hemoglobin 13.6 g/dL (14.1-18.0); Lymphocytes # 1.8 K/mm3 (0.7-4.5); Lymphocytes % 12.9 % (10-50); Mean Corpuscular HGB Conc 33.6 g/dL (31.8-35.4); Mean Corpuscular Hemoglobin 28.3 pg (27.0-31.2); Mean Corpuscular Volume 84.2 fl (80-94); Mean Platelet Volume 9.9 fl (7.4-10.4); Monocytes % 7.3 % (1.7-9.3); Neutrophils # 11.1 K/mm3 (1.8-7.8); Neutrophils % 77.9 % (37.0-80.0); Platelet Count 250 K/mm3 (142-424); Red Blood Count 4.81 M/mm3 (4.60-6.20); Red Cell Distribution Width 17.4 % (11.5-17.5); White Blood Count 14.2 K/mm3 (4.8-10.8)
[2023-10-20 00:30] LABS: Potassium 4.9 mmoL/L (3.5-5.1)
[2023-10-20 00:32] LABS: Alanine Aminotransferase 29 U/L (12-78); Alkaline Phosphatase 127 U/L (38-126); Aspartate Amino Transferase 57 U/L (17-59); Bilirubin,Total 1.3 mg/dl (0.2-1.3); Blood Urea Nitrogen 18 mg/dl (9-20); Creatinine Clearance Estimated 103 mL/min (50-200); Estimated Glomerular Filt Rate 75 ml/min (>60); GFR (African American) 90 ML/MIN (>60)
[2023-10-20 00:33] LABS: Albumin Level 4.9 g/dl (3.5-5.0); Albumin/Globulin Ratio 1.2 (1.1-1.8); Anion Gap 22.9 mEq/L (5-15); Calcium 9.7 mg/dl (8.4-10.2); Carbon Dioxide 18 mmol/L (22.0-30.0); Globulin 4.1 g/dL (1.3-3.2); Glucose 169 mg/dl (74-100)
[2023-10-20 00:36] LABS: Lactic Acid 1.9 mmol/L (0.7-2.1); Lipase 202 U/L (23-300); Magnesium 1.7 mg/dl (1.6-2.3)
[2023-10-20 00:45] LABS: Chloride 73 mmol/L (98-107); Sodium 109 mmol/L (136-145)
[2023-10-20 00:47] LABS: Troponin I < 0.01 ng/ml (0.00-0.034)
--- NOTE | 2023-10-20 00:47 | PC.NURSE ---
notified of na 109
--- NOTE | 2023-10-20 00:49 | INFXCTL.NOTE ---
seizure pads in place at this time.
[2023-10-20 00:56] LABS: Microscopic, Urine URINE MICROSCOPIC (MICROSCOPIC)
[2023-10-20 01:04] LABS: Appearance,Urine CLOUDY (Clear); Blood, Urine 3+ (Negative); Color,Urine YELLOW (Yellow); Glucose,Urine (UA) Negative (Negative); Ketones,Urine Negative (Negative); Leukocyte Esterase,Urine 2+ (Negative); Nitrate,Urine Negative (Negative); Protein,Urine 2+ (Negative); Specific Gravity, Urine 1.025 (1.005-1.030); Urobilinogen,Urine 0.2 EU/dl (0.2)
--- NOTE | 2023-10-20 01:05 | PC.NURSE ---
pt in CT at this time
[2023-10-20] MEDS: IOPAMIDOL-370 (76%);100ML BOTTLE 75 ML IV (01:12)
[2023-10-20] MEDS: SODIUM CHLORIDE 0.9% 10ML SYR (RAD ONLY) 10 ML IV (01:12)
[2023-10-20 01:19] LABS: Bilirubin,Urine 1+ (Negative)
[2023-10-20 01:20] LABS: Bacteria,Urine 3+ /lpf; WBC,Urine TNTC #/hpf (0-3)
[2023-10-20 01:26] LABS: VBG Base Excess -12.3 mmol/L (-2.4-2.3); VBG Oxygen Saturation 98.7 % (50-70); VBG PH 7.43 mmol/L (7.31-7.41); VBG PO2 166.9 mmol/L (28-40); VBG Total CO2 12.6 mmol/L (23-27)
[2023-10-20 01:28] LABS: VBG PCO2 18.4 mmol/L (35-51)
[2023-10-20 01:29] LABS: Sodium 116 mmol/L (136-145)
[2023-10-20 01:29] LABS: Lactate Venous 13.6 mmol/L (0.4-2.0)
--- NOTE | 2023-10-20 01:30 | PC.NURSE ---
notified md of vbg results at this time.
--- NOTE | 2023-10-20 02:08 | PC.NURSE ---
called lab and spoke with zay, advised of cultures obtained, repeat lactic acid
[2023-10-20 02:20] LABS: Lactic Acid 2.8 mmol/L (0.7-2.1)
[2023-10-20 02:33] LABS: Troponin I < 0.01 ng/ml (0.00-0.034)
--- NOTE | 2023-10-20 02:38 | PC.NURSE ---
meropenem not available in ED, but available on 2nd floor. spoke with 2nd floor charge nurse, and advised antibiotic to be given on 2nd floor.
--- NOTE | 2023-10-20 02:41 | P.HP_ITS ---
History of Present Illness *Admission Date: 10/20/23 *Reason for visit:: n/v and abdominal pain *History of present illness: This is a 68-year-old male with history of prior cauda equina syndrome and chronic urinary retention with chronic indwelling Latham, recent urethral repair after a laceration from Latham's, COPD, hypertension hyperlipidemia, diabetes presents with vomiting and abdominal pain. He reports that he has been vomiting since about 10:00 today. He is continue to have normal bowel movements today. He reports abdominal pain, more so on the right lower aspect. Nothing like this has happened before. Vomitus is yellow, not blood containing. He denies any chest pain. He reports that he has been much more thirsty than normal for the last few days, has been drinking more water. Admitted fir treatment. [facility] Disclaimer: The information contained in this section may have been updated after the patient was seen, as this information can be updated by other users. Medical History Acute exacerbation of chronic obstructive pulmonary disease Acute urinary retention Chronic pain At risk for osteoporosis Diabetes mellitus type 2 in obese At risk for polypharmacy Pneumonia Healthcare-associated pneumonia Chronic respiratory failure with hypoxia Chronic indwelling Latham catheter Peritracheal mass Acute urinary retention Cauda equina syndrome Paralysis, progressive Encounter for immunization Atypical angina Chest pain Abnormal EKG Edema Leg pain, bilateral Tachycardia SOB (shortness of breath) Chronic systolic heart failure CKD (chronic kidney disease) stage 2, GFR 60-89 ml/min Diabetes mellitus COPD (chronic obstructive pulmonary disease) HLD (hyperlipidemia) HTN (hypertension) Surgical History H/O repair of rotator cuff Family History Other Diabetes Hypertension Stroke Social History (Updated 10/20/23 @ 03:09 by Lashonda Monge RN) Smoking Status: Never smoker alcohol intake: never substance use type: denies use current occupational status: unemployed Travel in the last 8 weeks: None household members: spouse housing: house caffeine: Yes Meds Home Medications and Allergies Home Medications Medication Instructions Recorded Confirmed Type aspirin 81 mg chewable tablet 81 mg PO DAILY Heart Health 03/29/23 09/10/23 History topiramate 50 mg tablet 50 mg PO DAILY Migraines 04/12/23 09/10/23 History allopurinol 300 mg tablet 300 mg PO DAILY Gout 90 days #90 04/17/23 09/10/23 Rx tabs atorvastatin 40 mg tablet 40 mg PO HS Cholesterol 90 days 04/17/23 09/10/23 Rx #90 tabs budesonide 90 mcg/actuation breath 1 inh inhalation BID 30 days #1 ea 04/17/23 09/10/23 Rx activated powder inhaler insulin lispro 100 unit/mL 25 unit (0.25 mL) SQ AC Diabetes 04/17/23 09/10/23 Rx subcutaneous pen 60 days #15 mL isosorbide mononitrate 60 mg 60 mg PO DAILY High Blood Pressure 04/17/23 09/10/23 Rx tablet,extended release 24 hr 90 days #90 tabs montelukast 10 mg tablet 10 mg PO DAILY allergies 90 days 04/17/23 09/10/23 Rx #90 tabs nitroglycerin 0.4 mg sublingual 0.4 mg sublingual Q5MINP PRN chest 04/17/23 09/10/23 Rx tablet pain #90 tabs oxybutynin chloride 15 mg 15 mg PO DAILY Bladder 90 days #90 04/17/23 09/10/23 Rx tablet,extended release 24 hr tabs potassium chloride 20 mEq 20 meq PO DAILY Supplement 90 days 04/17/23 09/10/23 Rx tablet,extended release #90 tabs rivaroxaban 15 mg tablet 15 mg PO QPMWITHMEAL Blood 04/17/23 09/10/23 Rx thinner/AFIB 90 days #90 tabs tamsulosin 0.4 mg capsule 0.8 mg (2 x 0.4 mg) PO HS Prostate 04/17/23 09/10/23 Rx 90 days #180 caps tizanidine 4 mg tablet 4 mg PO HSP PRN Muscle Spasm #90 04/17/23 09/10/23 Rx tabs albuterol sulfate 90 mcg/actuation 2 inh inhalation Q4HP PRN SOA 05/12/23 09/10/23 History aerosol inhaler (Ventolin HFA) insulin glargine 100 unit/mL (3 80 unit SQ DAILY Diabetes 05/12/23 09/10/23 History mL) subcutaneous pen (Basaglar KwikPen U-100 Insulin) topiramate 25 mg tablet (Topamax) 25 mg PO DAILY Migraines 90 days 06/05/23 09/10/23 Rx #90 tabs semaglutide 2 mg/dose (8 mg/3 mL) mg SQ 06/14/23 09/10/23 History subcutaneous pen injector (Ozempic) spironolactone 25 mg tablet See Rx Instructions .Route 07/02/23 09/10/23 Rx .COMPLEX #180 tabs cefdinir 300 mg capsule 300 mg PO BID 7 days #14 caps 07/07/23 09/10/23 Rx ranolazine 500 mg tablet,extended 500 mg PO Q12H #60 tabs 07/23/23 09/10/23 Rx release,12 hr aripiprazole 5 mg tablet 5 mg PO DAILY Mood #90 tabs 08/20/23 09/10/23 Rx levothyroxine 175 mcg tablet See Rx Instructions .Route 08/21/23 09/10/23 Rx .COMPLEX #30 tabs diazepam 5 mg tablet 5 mg PO TID Tremors 90 days #270 09/04/23 09/10/23 Rx tabs oxycodone 10 mg tablet 10 mg PO Q4H PRN chronic pain 30 09/04/23 09/10/23 Rx days #120 tabs oxycodone 10 mg tablet 10 mg PO Q6H PRN pain 30 days #120 09/10/23 09/10/23 Rx tabs oxycodone 10 mg tablet 10 mg PO Q6H PRN pain 30 days #120 09/10/23 09/10/23 Rx tabs pregabalin 100 mg capsule 100 mg PO TID Pain 30 days #90 caps 09/10/23 09/10/23 Rx sulfamethoxazole 800 1 tab PO BID 14 days #28 tabs 09/19/23 Rx mg-trimethoprim 160 mg tablet furosemide 40 mg tablet 40 mg PO BID Fluid 30 days #90 tabs 09/24/23 Rx escitalopram oxalate 10 mg tablet See Rx Instructions .Route 10/01/23 Rx .COMPLEX #90 tabs metoprolol succinate 25 mg See Rx Instructions .Route 10/15/23 Rx tablet,extended release 24 hr .COMPLEX #90 tabs pantoprazole 40 mg tablet,delayed See Rx Instructions .Route 10/15/23 Rx release .COMPLEX #60 tabs New Prescriptions to Start Prescriptions: Allergies Allergy/AdvReac Type Severity Reaction Status Date / Time gabapentin [From Neurontin] Allergy Intermediate Rash Verified 09/10/23 10:04 Exam Data for Last 24 hours Vital signs and Labs for Last 24 Hours: Temp Pulse Resp BP Pulse Ox O2 Del Method 97.6 F 98 H 20 134/81 99 Room Air 10/19/23 23:33 10/20/23 01:30 10/19/23 23:33 10/20/23 01:30 10/20/23 01:30 10/20/23 01:30 Laboratory Results - last 24 hr 10/19/23 00:12: WBC 14.2 H, RBC 4.81, Hgb 13.6 L, Hct 40.5 L, MCV 84.2, MCH 28.3, MCHC 33.6, RDW 17.4, Plt Count 250, MPV 9.9, Neut % (Auto) 77.9, Lymph % (Auto) 12.9, [place] % (Auto) 7.3, Eos % (Auto) 1.5, Baso % (Auto) 0.4, Neut # (Auto) 11.1 H, Lymph # (Auto) 1.8, [place] # (Auto) 1.0, Eos # (Auto) 0.2, Baso # (Auto) 0.1, Sodium 109 L*, Potassium 4.9, Chloride 73 L, Carbon Dioxide 18 L, Anion Gap 22.9 H, BUN 18, Creatinine 1.00, Estimated Creat Clear 103, Estimated GFR 75, Est GFR ( Amer) 90, Glucose 169 H, Calcium 9.7, Total Bilirubin 1.3, AST 57, ALT 29, Alkaline Phosphatase 127 H, Troponin I < 0.01, Total Protein 9.0 H, Albumin 4.9, Globulin 4.1 H, Albumin/Globulin Ratio 1.2 10/20/23 00:12: Lactate 1.9, Magnesium 1.7, Lipase 202 10/20/23 00:46: VBG pH 7.43 H, VBG pCO2 18.4 L, VBG pO2 166.9 H, VBG HCO3 12.0 L , VBG Total CO2 12.6 L, VBG O2 Saturation 98.7 H, VBG Base Excess -12.3 L, VBG Lactic Acid 13.6 H 10/20/23 00:50: Urine Color Yellow, Urine Appearance Cloudy, Urine pH 6.0, Ur Specific [place] 1.025, Urine Protein 2+, Urine Glucose (UA) Negative, Urine Ketones Negative, Urine Blood 3+, Urine Nitrate Negative, Urine Bilirubin 1+ A, Urine Urobilinogen 0.2, Ur Leukocyte Esterase 2+ A, Urine RBC 5-10, Urine WBC Tntc, Ur Squamous Epith Cells 10-20, Urine Bacteria 3+, Urine Sodium 13.0 L 10/20/23 01:16: Sodium 116 L 10/20/23 02:05: Lactate 2.8 H, Troponin I < 0.01 I & O for Last 24 hours: Intake & Output 10/17/23 10/18/23 10/19/23 10/20/23 23:59 23:59 23:59 23:59 Weight 99.79 kg *Routine HEENT Exam Head: Present normocephalic and atraumatic Eye: Present EOMI, PERRL and normal accommodation ENT: Present mucous membranes dry *Routine Respiratory Exam Respiratory: Present CTA bilaterally and normal respiratory effort *Routine Cardiovascular Exam Cardiovascular: Present RRR, Normal S1 and tachycardia *Routine Abdominal Exam Abdominal: Present soft, normoactive bowel sounds and tenderness *Routine Rectal Exam Rectal:: deferred *Routine Genitalia Exam Genitalia:: normal male (latham catheter. edematous ) Assessment and Plan *Assessment and plan (1) Acute hyponatremia: Status: Acute Category: Medical Code(s): E87.1 - Hypo-osmolality and hyponatremia (2) Abdominal pain: Status: Acute Qualifiers: Abdominal location: lower abdomen, unspecified Qualified Code(s): R10.30 - Lower abdominal pain, unspecified Category: Medical Code(s): R10.9 - Unspecified abdominal pain (3) Catheter-associated urinary tract infection: Status: Acute Qualifiers: Encounter type: initial encounter Indwelling urinary catheter type: indwelling urethral catheter Qualified Code(s): T83.511A - Infection and inflammatory reaction due to indwelling urethral catheter, initial encounter; N39.0 - Urinary tract infection, site not specified Category: Medical Code(s): T83.511A - Infection and inflammatory reaction due to indwelling urethral catheter, initial encounter; N39.0 - Urinary tract infection, site not specified (4) Diabetes mellitus type 2 in obese: Problem Comment: As I mentioned in the past having rigid A1c goals does not seem appropriate in this patient. However according to the patient and his daughter his last A1c which was done outside of our system was 6.5 which is excellent. Will continue with the current therapies. Status: Acute Category: Medical Code(s): E11.69 - Type 2 diabetes mellitus with other specified complication; E66.9 - Obesity, unspecified Plan 68-year-old male with history of prior cauda equina syndrome and chronic urinary retention with chronic indwelling Latham, recent urethral repair after a laceration from Latham's, COPD, hypertension hyperlipidemia, diabetes presents with vomiting and abdominal pain. on arrival initial work up showed severe hyponatremia with sodium 109. on repeat, it was 116. Patient is also hyp ochloremic with mildly elevated anion gap. Initial lactate was normal at 1.9. The lactate on the VBG came back markedly elevated at 13. Repeat lactate taken immediately came back at 2.8. Urine sodium is appropriately low given hyponatremia. Urine and serum osmolality not yet returned. Initial troponin undetectably low. Urine shows too numerous to count white blood cells and 3+ bacteria, negative nitrates. ED requeted admission for further work up. Agreed for admission. Plan as follow: - Acute hyponatremia: admit patient started on hypertonic saline. goal of correction 8-10mEq/24 hr CMP q4 hr monitor VS per unit encouraged hydration -Abdominal pain likely secondary to UTI/cystitis associated with chronic indwelling urinary catheter: UA pending started on Meropemen 1G q 12h IV replaced catheter at ED monitor for sepsis repeat CBC in the morning. monitor WBC - Diabetes. Uncontrolled last a1c 8.3 repeat this morning sliding scale accucheck before meals
--- NOTE | 2023-10-20 02:55 | PC.NURSE ---
[id number] called rn house supervisor for bed, pt being admitted to hospitalist for UTI and hyponatremia
--- NOTE | 2023-10-20 02:56 | PC.NURSE ---
Patient arrived to floor via stretcher from ED at 2:50.
[2023-10-20] MEDS: MEROPENEM 1 GM in 0.9 % SODIUM CHLORIDE 100 ML IV ×3 (03:41→18:40)
[2023-10-20] MEDS: SODIUM CHLORIDE 3 % 500 ML 64 ML IV (03:42)
[2023-10-20 05:28] LABS: Reflex Lactic Add Lactic Reflex
[2023-10-20 06:13] LABS: POC Glucose,Bedside 160 (70-110)
[2023-10-20 08:51] LABS: Basophils % 0.4 % (0.1-2.0); Eosinophils # 0.1 K/mm3 (0.0-0.4); Eosinophils % 0.9 % (0.1-12.0); Hematocrit 39.5 % (42.0-52.0); Hemoglobin 13.6 g/dL (14.1-18.0); Lymphocytes # 1.1 K/mm3 (0.7-4.5); Lymphocytes % 13.3 % (10-50); Mean Corpuscular HGB Conc 34.3 g/dL (31.8-35.4); Mean Corpuscular Volume 84.4 fl (80-94); Mean Platelet Volume 9.4 fl (7.4-10.4); Monocytes # 0.7 K/mm3 (0.1-1.0); Monocytes % 8.6 % (1.7-9.3); Neutrophils # 6.5 K/mm3 (1.8-7.8); Neutrophils % 76.7 % (37.0-80.0); Platelet Count 150 K/mm3 (142-424); Red Blood Count 4.68 M/mm3 (4.60-6.20); White Blood Count 8.4 K/mm3 (4.8-10.8)
[2023-10-20 09:12] LABS: Alanine Aminotransferase 25 U/L (12-78); Albumin Level 4.1 g/dl (3.5-5.0); Albumin/Globulin Ratio 1.2 (1.1-1.8); Alkaline Phosphatase 104 U/L (38-126); Anion Gap 16.5 mEq/L (5-15); Aspartate Amino Transferase 39 U/L (17-59); Bilirubin,Total 0.9 mg/dl (0.2-1.3); Blood Urea Nitrogen 15 mg/dl (9-20); Calcium 9.1 mg/dl (8.4-10.2); Carbon Dioxide 22 mmol/L (22.0-30.0); Chloride 80 mmol/L (98-107); Creatinine Clearance Estimated 96 mL/min (50-200); Estimated Glomerular Filt Rate 84 ml/min (>60); GFR (African American) 102 ML/MIN (>60); Globulin 3.3 g/dL (1.3-3.2); Glucose 144 mg/dl (74-100); Magnesium 1.8 mg/dl (1.6-2.3); Potassium 4.5 mmoL/L (3.5-5.1); Total Protein,Serum 7.4 g/dl (6.3-8.2)
[2023-10-20 09:14] LABS: Sodium 114 mmol/L (136-145)
[2023-10-20] MEDS: PANTOPRAZOLE 40MG TABLET 40 MG PO (09:20)
[2023-10-20] MEDS: ENOXAPARIN 40MG/0.4ML SYRINGE 40 MG SQ (09:20)
[2023-10-20 09:30] LABS: Lactic Acid Follow Up (RFLX 1) 1.4 mmol/L (0.7-2.1)
[2023-10-20 10:09] LABS: Hemoglobin A1C 7.1 % (4.0-6.0)
[2023-10-20 11:25] LABS: POC Glucose,Bedside 277 (70-110)
[2023-10-20] MEDS: humaLOG 100 UNITS/ML 3ML VIAL (SSI) SQ ×3 (11:30→20:49)
[2023-10-20 12:39] LABS: Chloride 85 mmol/L (98-107); Potassium 4.5 mmoL/L (3.5-5.1); Sodium 117 mmol/L (136-145)
[2023-10-20 12:42] LABS: Alanine Aminotransferase 32 U/L (12-78); Alkaline Phosphatase 117 U/L (38-126); Anion Gap 14.5 mEq/L (5-15); Aspartate Amino Transferase 39 U/L (17-59); Bilirubin,Total 0.8 mg/dl (0.2-1.3); Blood Urea Nitrogen 16 mg/dl (9-20); Carbon Dioxide 22 mmol/L (22.0-30.0); Creatinine Clearance Estimated 87 mL/min (50-200); Estimated Glomerular Filt Rate 67 ml/min (>60); GFR (African American) 81 ML/MIN (>60)
[2023-10-20 12:43] LABS: Albumin Level 4.1 g/dl (3.5-5.0); Albumin/Globulin Ratio 1.3 (1.1-1.8); Calcium 8.9 mg/dl (8.4-10.2); Globulin 3.2 g/dL (1.3-3.2); Glucose 223 mg/dl (74-100); Total Protein,Serum 7.3 g/dl (6.3-8.2)
[2023-10-20] MEDS: diazePAM 5MG TABLET 5 MG PO ×2 (12:56→20:49)
[2023-10-20] MEDS: OXYCODONE 5MG IMMEDIATE RELEASE TABLET 10 MG PO ×2 (12:56→20:55)
[2023-10-20 13:19] LABS: Troponin I < 0.01 ng/ml (0.00-0.034)
[2023-10-20] MEDS: FLUTICASONE HFA 110MCG INHALER 1 PUFF IH ×2 (13:44→23:54)
[2023-10-20] MEDS: PREGABALIN 100MG CAPSULE 100 MG PO ×2 (13:47→20:49)
[2023-10-20] MEDS: ISOSORBIDE MONO 60MG TAB.ER.24H 60 MG PO (13:48)
[2023-10-20] MEDS: ASPIRIN 81MG CHEWABLE TABLET 81 MG PO (13:48)
[2023-10-20] MEDS: TOPIRAMATE 25MG TABLET 25 MG PO (13:48)
[2023-10-20] MEDS: METOPROLOL SUCCINATE XL 25MG TABLET 25 MG PO (13:49)
[2023-10-20] MEDS: OXYBUTYNIN 5MG TAB 5 MG PO ×2 (13:49→20:49)
[2023-10-20] MEDS: ALLOPURINOL 300MG TABLET 300 MG PO (13:49)
[2023-10-20] MEDS: RANOLAZINE 500MG ER TABLET 500 MG PO (13:49)
[2023-10-20] MEDS: ARIPiprazole 10MG TABLET 5 MG PO (13:49)
[2023-10-20] MEDS: LEVOTHYROXINE 175MCG (0.175MG) TAB 175 MCG PO (13:49)
[2023-10-20 16:01] LABS: Chloride 88 mmol/L (98-107)
[2023-10-20 16:02] LABS: Potassium 4.4 mmoL/L (3.5-5.1); Sodium 119 mmol/L (136-145)
[2023-10-20 16:04] LABS: Alanine Aminotransferase 29 U/L (12-78); Albumin Level 3.8 g/dl (3.5-5.0); Albumin/Globulin Ratio 1.2 (1.1-1.8); Alkaline Phosphatase 98 U/L (38-126); Anion Gap 14.4 mEq/L (5-15); Aspartate Amino Transferase 36 U/L (17-59); Bilirubin,Total 0.5 mg/dl (0.2-1.3); Blood Urea Nitrogen 15 mg/dl (9-20); Carbon Dioxide 21 mmol/L (22.0-30.0); Creatinine Clearance Estimated 87 mL/min (50-200); Estimated Glomerular Filt Rate 67 ml/min (>60); GFR (African American) 81 ML/MIN (>60); Globulin 3.1 g/dL (1.3-3.2); Total Protein,Serum 6.9 g/dl (6.3-8.2)
[2023-10-20 16:05] LABS: Calcium 8.9 mg/dl (8.4-10.2); Glucose 149 mg/dl (74-100)
[2023-10-20 16:25] LABS: POC Glucose,Bedside 155 (70-110)
[2023-10-20] MEDS: 0.9 % SODIUM CHLORIDE 1000ML 1,000 ML 75 ML IV (17:23)
[2023-10-20] MEDS: RIVAROXABAN 15MG TABLET 15 MG PO (17:24)
--- NOTE | 2023-10-20 18:05 | PC.NURSE ---
Patient is alert & oriented x4. Tolerating room air well. Rodriguez draining well. Tolerated 3% hypertonic saline well. Labs checked q4h and was switched to NS per MD. Repositioned in bed q2h. Seizure pads in place throughout shift. No complaints this shift. Call light within reach.
[2023-10-20 20:17] LABS: POC Glucose,Bedside 173 (70-110)
[2023-10-20 20:46] LABS: Chloride 88 mmol/L (98-107); Potassium 4.3 mmoL/L (3.5-5.1); Sodium 118 mmol/L (136-145)
[2023-10-20 20:48] LABS: Blood Urea Nitrogen 14 mg/dl (9-20); Creatinine Clearance Estimated 80 mL/min (50-200); Estimated Glomerular Filt Rate 61 ml/min (>60); GFR (African American) 73 ML/MIN (>60)
[2023-10-20] MEDS: NYSTATIN TOPICAL POWDER 30GM TP (20:48)
[2023-10-20 20:49] LABS: Alanine Aminotransferase 28 U/L (12-78); Albumin Level 3.6 g/dl (3.5-5.0); Albumin/Globulin Ratio 1.3 (1.1-1.8); Alkaline Phosphatase 93 U/L (38-126); Anion Gap 14.3 mEq/L (5-15); Aspartate Amino Transferase 38 U/L (17-59); Bilirubin,Total 0.5 mg/dl (0.2-1.3); Calcium 8.6 mg/dl (8.4-10.2); Carbon Dioxide 20 mmol/L (22.0-30.0); Globulin 2.8 g/dL (1.3-3.2); Glucose 163 mg/dl (74-100); Total Protein,Serum 6.4 g/dl (6.3-8.2)
[2023-10-20] MEDS: ATORVASTATIN 40MG TABLET 40 MG PO (20:49)
[2023-10-20] MEDS: TAMSULOSIN 0.4MG CAPSULE 0.800000000000000044 MG PO (20:49)
[2023-10-20] MEDS: MONTELUKAST SODIUM 10MG TAB 10 MG PO (20:49)
[2023-10-21] VITALS (8 sets, daily range): BP systolic 94–114; BP diastolic 55–70; PULSE 68–104; RESP 16–18; TEMP 36.5–36.8; O2SAT 92–98; BMI 28.8
[2023-10-21] MEDS: RANOLAZINE 500MG ER TABLET 500 MG PO ×2 (00:20→11:13)
[2023-10-21] MEDS: MEROPENEM 1 GM in 0.9 % SODIUM CHLORIDE 100 ML IV ×3 (03:14→20:32)
[2023-10-21] MEDS: OXYCODONE 5MG IMMEDIATE RELEASE TABLET 10 MG PO ×3 (03:15→20:32)
[2023-10-21] MEDS: LEVOTHYROXINE 175MCG (0.175MG) TAB 175 MCG PO (06:11)
[2023-10-21 06:44] LABS: Basophils # 0.1 K/mm3 (0-0.2); Basophils % 0.6 % (0.1-2.0); Eosinophils # 0.1 K/mm3 (0.0-0.4); Eosinophils % 1.7 % (0.1-12.0); Hematocrit 37.2 % (42.0-52.0); Lymphocytes # 2.1 K/mm3 (0.7-4.5); Lymphocytes % 27.9 % (10-50); Mean Corpuscular HGB Conc 32.2 g/dL (31.8-35.4); Mean Corpuscular Volume 86.9 fl (80-94); Mean Platelet Volume 9.7 fl (7.4-10.4); Monocytes # 0.9 K/mm3 (0.1-1.0); Monocytes % 11.6 % (1.7-9.3); Neutrophils # 4.4 K/mm3 (1.8-7.8); Neutrophils % 58.1 % (37.0-80.0); Platelet Count 176 K/mm3 (142-424); Red Blood Count 4.28 M/mm3 (4.60-6.20); White Blood Count 7.6 K/mm3 (4.8-10.8)
[2023-10-21 06:51] LABS: Anion Gap 15.8 mEq/L (5-15); Blood Urea Nitrogen 13 mg/dl (9-20); Calcium 9.1 mg/dl (8.4-10.2); Carbon Dioxide 26 mmol/L (22.0-30.0); Chloride 90 mmol/L (98-107); Creatinine Clearance Estimated 80 mL/min (50-200); Estimated Glomerular Filt Rate 61 ml/min (>60); GFR (African American) 73 ML/MIN (>60); Glucose 128 mg/dl (74-100); Potassium 4.8 mmoL/L (3.5-5.1); Sodium 127 mmol/L (136-145)
[2023-10-21 06:53] LABS: POC Glucose,Bedside 119 (70-110)
[2023-10-21] MEDS: FLUTICASONE HFA 110MCG INHALER 1 PUFF IH ×2 (07:04→20:52)
[2023-10-21] MEDS: ACETAMINOPHEN 325MG TAB 650 MG PO (07:47)
[2023-10-21] MEDS: diazePAM 5MG TABLET 5 MG PO ×3 (07:47→20:33)
[2023-10-21] MEDS: PREGABALIN 100MG CAPSULE 100 MG PO ×3 (07:47→20:33)
[2023-10-21] MEDS: PANTOPRAZOLE 40MG TABLET 40 MG PO (07:48)
[2023-10-21] MEDS: METOPROLOL SUCCINATE XL 25MG TABLET 25 MG PO (07:49)
[2023-10-21] MEDS: ALLOPURINOL 300MG TABLET 300 MG PO (07:49)
[2023-10-21] MEDS: ISOSORBIDE MONO 60MG TAB.ER.24H 60 MG PO (07:49)
[2023-10-21] MEDS: OXYBUTYNIN 5MG TAB 5 MG PO ×3 (07:49→20:33)
[2023-10-21] MEDS: ASPIRIN 81MG CHEWABLE TABLET 81 MG PO (07:49)
[2023-10-21] MEDS: TOPIRAMATE 25MG TABLET 25 MG PO (07:49)
[2023-10-21] MEDS: NYSTATIN TOPICAL POWDER 30GM TP ×2 (07:49→20:38)
[2023-10-21] MEDS: ARIPiprazole 10MG TABLET 5 MG PO (07:50)
[2023-10-21] MEDS: ENOXAPARIN 40MG/0.4ML SYRINGE 40 MG SQ (07:52)
[2023-10-21] MEDS: 0.9 % SODIUM CHLORIDE 1000ML 1,000 ML 75 ML IV (08:44)
[2023-10-21] MEDS: HYDROCODONE/APAP 5/325 MG TABLET 1 TAB PO (10:23)
[2023-10-21 11:26] LABS: POC Glucose,Bedside 131 (70-110)
--- NOTE | 2023-10-21 16:35 | P.PN_ITS ---
Subjective *Date: 10/21/23 *Time: 16:42 Interval history: seen at bedside, complains of headache, denied CP, SOB, N/V Exam Data for Last 24 hours Vital signs and Labs for Last 24 Hours: Temp Pulse Resp BP Pulse Ox O2 Del Method 98 F 78 16 98/60 L 97 Room Air 10/21/23 16:00 10/21/23 16:00 10/21/23 16:00 10/21/23 16:00 10/21/23 16:00 10/21/23 13:00 Laboratory Results - last 24 hr 10/20/23 00:50: Urine Color Yellow, Urine Appearance Cloudy, Urine pH 6.0, Ur Specific [place] 1.025, Urine Protein 2+, Urine Glucose (UA) Negative, Urine Ketones Negative, Urine Blood 3+, Urine Nitrate Negative, Urine Bilirubin 1+ A, Urine Urobilinogen 0.2, Ur Leukocyte Esterase 2+ A, Urine RBC 5-10, Urine WBC Tntc, Ur Squamous Epith Cells 10-20, Urine Bacteria 3+ 10/20/23 19:54: POC Glucose 173 H 10/20/23 20:25: Sodium 118 L, Potassium 4.3, Chloride 88 L, Carbon Dioxide 20 L, Anion Gap 14.3, BUN 14, Creatinine 1.20, Estimated Creat Clear 80, Estimated GFR 61, Est GFR ( Amer) 73, Glucose 163 H, Calcium 8.6, Total Bilirubin 0.5, AST 38, ALT 28, Alkaline Phosphatase 93, Total Protein 6.4, Albumin 3.6, Globuli n 2.8, Albumin/Globulin Ratio 1.3 10/21/23 05:18: POC Glucose 119 H 10/21/23 06:15: WBC 7.6, RBC 4.28 L, Hgb 12.0 L D, Hct 37.2 L, MCV 86.9, MCH 28.0, MCHC 32.2, RDW 18.0 H, Plt Count 176, MPV 9.7, Neut % (Auto) 58.1, Lymph % (Auto) 27.9, [place] % (Auto) 11.6 H, Eos % (Auto) 1.7, Baso % (Auto) 0.6, Neut # (Auto) 4.4, Lymph # (Auto) 2.1, [place] # (Auto) 0.9, Eos # (Auto) 0.1, Baso # (Auto) 0.1, Sodium 127 L, Potassium 4.8, Chloride 90 L, Carbon Dioxide 26, Anion Gap 15.8 H, BUN 13, Creatinine 1.20, Estimated Creat Clear 80, Estimated GFR 61, Est GFR ( Amer) 73, Glucose 128 H D, Calcium 9.1 10/21/23 11:12: POC Glucose 131 H I & O for Last 24 hours: Intake & Output 10/18/23 10/19/23 10/20/23 10/21/23 23:59 23:59 23:59 23:59 Intake Total 1652 / 1652 2552 / 2552 Output Total 2400 / 2400 4100 / 4100 Balance -748 / -748 -1548 / -1548 Weight 99.79 kg 93.582 kg 93.621 kg Microbiology Reports for the Last 24 Hours: Microbiology 10/20/23 00:50 Urine,Clean Catch Urine Culture - Preliminary Gram Negative Rods Constitutional Constitutional: no acute distress *Routine HEENT Exam Head: Present normocephalic Eye: Present EOMI and PERRL ENT: Present mucous membranes moist *Routine Neck Exam Neck: Present supple; Absent lymphadenopathy *Routine Respiratory Exam Respiratory: Present CTA bilaterally *Routine Cardiovascular Exam Cardiovascular: Present RRR *Routine Abdominal Exam Abdominal: Present soft and normoactive bowel sounds; Absent tenderness *Routine Extremities Exam Extremities: Absent cyanosis, clubbing or edema *Routine Skin Exam Skin: Present warm; Absent rash *Routine Neurological Exam Neurological: Present alert and oriented X3 Assessment and Plan *Assessment and plan (1) Acute hyponatremia: Status: Acute Category: Medical Code(s): E87.1 - Hypo-osmolality and hyponatremia (2) Abdominal pain: Status: Acute Qualifiers: Abdominal location: lower abdomen, unspecified Qualified Code(s): R10.30 - Lower abdominal pain, unspecified Category: Medical Code(s): R10.9 - Unspecified abdominal pain (3) Catheter-associated urinary tract infection: Status: Acute Qualifiers: Encounter type: initial encounter Indwelling urinary catheter type: indwelling urethral catheter Qualified Code(s): T83.511A - Infection and inflammatory reaction due to indwelling urethral catheter, initial encounter; N39.0 - Urinary tract infection, site not specified Category: Medical Code(s): T83.511A - Infection and inflammatory reaction due to indwelling urethral catheter, initial encounter; N39.0 - Urinary tract infection, site not specified (4) Diabetes mellitus type 2 in obese: Problem Comment: As I mentioned in the past having rigid A1c goals does not seem appropriate in this patient. However according to the patient and his daughter his last A1c which was done outside of our system was 6.5 which is excellent. Will continue with the current therapies. Status: Acute Category: Medical Code(s): E11.69 - Type 2 diabetes mellitus with other specified complication; E66.9 - Obesity, unspecified Plan 68-year-old male with history of prior cauda equina syndrome and chronic urinary retention with chronic indwelling Rodriguez, recent urethral repair after a laceration from Rodriguez's, COPD, hypertension hyperlipidemia, diabetes presents with vomiting and abdominal pain. on arrival initial work up showed severe hyponatremia with sodium 109. on repeat, it was 116. Patient is also hypochloremic with mildly elevated anion gap. Initial lactate was normal at 1.9. The lactate on the VBG came back markedly elevated at 13. Repeat lactate taken immediately came back at 2.8. Urine sodium is appropriately low given hyponatremia. Urine and serum osmolality not yet returned. Initial troponin undetectably low. Urine shows too numerous to count white blood cells and 3+ bacteria, negative nitrates. ED requeted admission for further work up. Agreed for admission. Plan as follow: - Acute hyponatremia: admit patient started on hypertonic saline. goal of correction 8-10mEq/24 hr CMP q4 hr monitor VS per unit encouraged hydration hold off on NS due to rapid correction, await next check -Abdominal pain likely secondary to UTI/cystitis associated with chronic indwelling urinary catheter: UA pending started on Meropemen 1G q 12h IV replaced catheter at ED monitor for sepsis repeat CBC in the morning. monitor WBC - Diabetes. Uncontrolled last a1c 8.3 repeat this morning sliding scale accucheck before meals contninue to monitor BMP, likely DC 1-2 days
[2023-10-21] MEDS: RIVAROXABAN 15MG TABLET 15 MG PO (16:55)
[2023-10-21] MEDS: humaLOG 100 UNITS/ML 3ML VIAL (SSI) SQ (17:09)
[2023-10-21 17:11] LABS: Chloride 91 mmol/L (98-107); Sodium 121 mmol/L (136-145)
[2023-10-21 17:14] LABS: Blood Urea Nitrogen 16 mg/dl (9-20); Calcium 8.5 mg/dl (8.4-10.2); Carbon Dioxide 21 mmol/L (22.0-30.0); Creatinine Clearance Estimated 80 mL/min (50-200); Estimated Glomerular Filt Rate 61 ml/min (>60); GFR (African American) 73 ML/MIN (>60); Glucose 180 mg/dl (74-100)
[2023-10-21 17:33] LABS: POC Glucose,Bedside 188 (70-110)
[2023-10-21 20:24] LABS: POC Glucose,Bedside 143 (70-110)
[2023-10-21] MEDS: TAMSULOSIN 0.4MG CAPSULE 0.800000000000000044 MG PO (20:32)
[2023-10-21] MEDS: ATORVASTATIN 40MG TABLET 40 MG PO (20:33)
[2023-10-21] MEDS: MONTELUKAST SODIUM 10MG TAB 10 MG PO (20:33)
--- NOTE | 2023-10-21 22:31 | PC.NURSE ---
report given to Lorin Muñoz Rn at this time
[2023-10-22] VITALS (9 sets, daily range): BP systolic 107–133; BP diastolic 56–71; PULSE 70–91; RESP 16–18; TEMP 36.3–36.9; O2SAT 93–97; BMI 28.9
[2023-10-22] MEDS: RANOLAZINE 500MG ER TABLET 500 MG PO ×3 (00:13→23:05)
[2023-10-22] MEDS: MEROPENEM 1 GM in 0.9 % SODIUM CHLORIDE 100 ML IV ×3 (02:32→18:07)
[2023-10-22] MEDS: humaLOG 100 UNITS/ML 3ML VIAL (SSI) SQ ×3 (05:54→21:15)
[2023-10-22] MEDS: LEVOTHYROXINE 175MCG (0.175MG) TAB 175 MCG PO (06:05)
[2023-10-22] MEDS: FLUTICASONE HFA 110MCG INHALER 1 PUFF IH ×2 (06:21→20:05)
[2023-10-22 06:34] LABS: POC Glucose,Bedside 164 (70-110)
[2023-10-22 07:38] LABS: Basophils # 0.1 K/mm3 (0-0.2); Basophils % 0.5 % (0.1-2.0); Eosinophils # 0.3 K/mm3 (0.0-0.4); Eosinophils % 3.1 % (0.1-12.0); Hematocrit 36.7 % (42.0-52.0); Hemoglobin 11.6 g/dL (14.1-18.0); Lymphocytes # 1.8 K/mm3 (0.7-4.5); Lymphocytes % 19.5 % (10-50); Mean Corpuscular HGB Conc 31.7 g/dL (31.8-35.4); Mean Corpuscular Hemoglobin 28.4 pg (27.0-31.2); Mean Corpuscular Volume 89.7 fl (80-94); Mean Platelet Volume 9.7 fl (7.4-10.4); Monocytes # 0.6 K/mm3 (0.1-1.0); Monocytes % 6.4 % (1.7-9.3); Neutrophils # 6.5 K/mm3 (1.8-7.8); Neutrophils % 70.5 % (37.0-80.0); Platelet Count 173 K/mm3 (142-424); Red Blood Count 4.09 M/mm3 (4.60-6.20); Red Cell Distribution Width 17.9 % (11.5-17.5); White Blood Count 9.2 K/mm3 (4.8-10.8)
[2023-10-22] MEDS: PREGABALIN 100MG CAPSULE 100 MG PO ×3 (09:01→21:15)
[2023-10-22] MEDS: ASPIRIN 81MG CHEWABLE TABLET 81 MG PO (09:01)
[2023-10-22] MEDS: diazePAM 5MG TABLET 5 MG PO ×3 (09:01→21:16)
[2023-10-22] MEDS: METOPROLOL SUCCINATE XL 25MG TABLET 25 MG PO (09:01)
[2023-10-22] MEDS: ENOXAPARIN 40MG/0.4ML SYRINGE 40 MG SQ (09:01)
[2023-10-22] MEDS: PANTOPRAZOLE 40MG TABLET 40 MG PO (09:02)
[2023-10-22] MEDS: TOPIRAMATE 25MG TABLET 25 MG PO (09:02)
[2023-10-22] MEDS: ALLOPURINOL 300MG TABLET 300 MG PO (09:02)
[2023-10-22] MEDS: OXYBUTYNIN 5MG TAB 5 MG PO ×3 (09:02→21:15)
[2023-10-22] MEDS: ARIPiprazole 10MG TABLET 5 MG PO (09:02)
[2023-10-22] MEDS: ISOSORBIDE MONO 60MG TAB.ER.24H 60 MG PO (09:02)
[2023-10-22] MEDS: NYSTATIN TOPICAL POWDER 30GM TP ×2 (09:03→21:17)
[2023-10-22] MEDS: OXYCODONE 5MG IMMEDIATE RELEASE TABLET 10 MG PO ×2 (09:11→21:56)
[2023-10-22 09:50] LABS: Anion Gap 15.8 mEq/L (5-15); Blood Urea Nitrogen 16 mg/dl (9-20); Carbon Dioxide 21 mmol/L (22.0-30.0); Chloride 92 mmol/L (98-107); Creatinine Clearance Estimated 88 mL/min (50-200); Estimated Glomerular Filt Rate 67 ml/min (>60); GFR (African American) 81 ML/MIN (>60); Glucose 145 mg/dl (74-100); Potassium 4.8 mmoL/L (3.5-5.1); Sodium 124 mmol/L (136-145)
[2023-10-22] MEDS: 0.9 % SODIUM CHLORIDE 1000ML 1,000 ML 100 ML IV (10:08)
[2023-10-22 11:12] LABS: POC Glucose,Bedside 161 (70-110)
[2023-10-22 12:10] LABS: Osmolality, Urine 458 mOsmol/kg (.)
[2023-10-22 16:19] LABS: POC Glucose,Bedside 129 (70-110)
[2023-10-22] MEDS: POLYETHYLENE GLYCOL 3350 17 GM PACKET PO (17:00)
--- NOTE | 2023-10-22 17:52 | P.PN_ITS ---
Subjective *Date: 10/22/23 *Time: 17:52 Interval history: patient is seen at bedside, alexa CP, SOB, N/V Exam Data for Last 24 hours Vital signs and Labs for Last 24 Hours: Temp Pulse Resp BP Pulse Ox O2 Del Method 98.5 F 81 18 112/63 97 Room Air 10/22/23 15:47 10/22/23 16:00 10/22/23 15:47 10/22/23 15:47 10/22/23 15:47 10/22/23 17:00 Laboratory Results - last 24 hr 10/20/23 00:50: Urine Osmolality 458 10/21/23 20:13: POC Glucose 143 H 10/22/23 05:52: POC Glucose 164 H 10/22/23 06:26: WBC 9.2, RBC 4.09 L, Hgb 11.6 L, Hct 36.7 L, MCV 89.7, MCH 28.4, MCHC 31.7 L, RDW 17.9 H, Plt Count 173, MPV 9.7, Neut % (Auto) 70.5, Lymph % (Auto) 19.5, [place] % (Auto) 6.4, Eos % (Auto) 3.1, Baso % (Auto) 0.5, Neut # (Auto) 6.5, Lymph # (Auto) 1.8, [place] # (Auto) 0.6, Eos # (Auto) 0.3, Baso # (Auto) 0.1, Sodium 124 L, Potassium 4.8, Chloride 92 L, Carbon Dioxide 21 L, Anion Gap 15.8 H, BUN 16, Creatinine 1.10, Estimated Creat Clear 88, Estimated GFR 67, Est GFR ( Amer) 81, Glucose 145 H, Calcium 9.0 10/22/23 11:02: POC Glucose 161 H 10/22/23 16:08: POC Glucose 129 H I & O for Last 24 hours: Intake & Output 10/19/23 10/20/23 10/21/23 10/22/23 23:59 23:59 23:59 23:59 Intake Total 1652 / 1652 2792 / 3252 2422 / 2422 Output Total 2400 / 2400 6000 / 6000 6900 / 6900 Balance -748 / -748 -3208 / -2748 -6668 / -4720 Weight 99.79 kg 93.582 kg 93.621 kg 93.84 kg Microbiology Reports for the Last 24 Hours: Microbiology 10/20/23 00:50 Urine,Clean Catch Urine Culture - Final Escherichia coli Constitutional Constitutional: no acute distress *Routine HEENT Exam Head: Present normocephalic Eye: Present EOMI and PERRL ENT: Present mucous membranes moist *Routine Neck Exam Neck: Present supple; Absent lymphadenopathy *Routine Respiratory Exam Respiratory: Present CTA bilaterally *Routine Cardiovascular Exam Cardiovascular: Present RRR *Routine Abdominal Exam Abdominal: Present soft and normoactive bowel sounds; Absent tenderness *Routine Extremities Exam Extremities: Absent cyanosis, clubbing or edema *Routine Skin Exam Skin: Present warm; Absent rash *Routine Neurological Exam Neurological: Present alert and oriented X3 Assessment and Plan *Assessment and plan (1) Acute hyponatremia: Status: Acute Category: Medical Code(s): E87.1 - Hypo-osmolality and hyponatremia (2) Abdominal pain: Status: Acute Qualifiers: Abdominal location: lower abdomen, unspecified Qualified Code(s): R10.30 - Lower abdominal pain, unspecified Category: Medical Code(s): R10.9 - Unspecified abdominal pain (3) Catheter-associated urinary tract infection: Status: Acute Qualifiers: Encounter type: initial encounter Indwelling urinary catheter type: indwelling urethral catheter Qualified Code(s): T83.511A - Infection and inflammatory reaction due to indwelling urethral catheter, initial encounter; N39.0 - Urinary tract infection, site not specified Category: Medical Code(s): T83.511A - Infection and inflammatory reaction due to indwelling urethral catheter, initial encounter; N39.0 - Urinary tract infection, site not specified (4) Diabetes mellitus type 2 in obese: Problem Comment: As I mentioned in the past having rigid A1c goals does not seem appropriate in this patient. However according to the patient and his daughter his last A1c which was done outside of our system was 6.5 which is excellent. Will continue with the current therapies. Status: Acute Category: Medical Code(s): E11.69 - Type 2 diabetes mellitus with other specified complication; E66.9 - Obesity, unspecified Plan 68-year-old male with history of prior cauda equina syndrome and chronic urinary retention with chronic indwelling Rodriguez, recent urethral repair after a laceration from Rodriguez's, COPD, hypertension hyperlipidemia, diabetes presents with vomiting and abdominal pain. on arrival initial work up showed severe hyponatremia with sodium 109. on repeat, it was 116. Patient is also hypochloremic with mildly elevated anion gap. Initial lactate was normal at 1.9. The lactate on the VBG came back markedly elevated at 13. Repeat lactate taken immediately came back at 2.8. Urine sodium is appropriately low given hyponatremia. Urine and serum osmolality not yet returned. Initial troponin undetectably low. Urine shows too numerous to count white blood cells and 3+ bacteria, negative nitrates. ED requeted admission for further work up. Agreed for admission. Plan as follow: - Acute hyponatremia: improving closely monitor BMP, Na today 124 started on NS @ 75 ml monitor VS per unit encouraged hydration -Abdominal pain likely secondary to UTI/cystitis associated with chronic indwelling urinary catheter: UA pending started on Meropemen 1G q 12h IV replaced catheter at ED monitor for sepsis repeat CBC in the morning. monitor WBC - Diabetes. Uncontrolled last a1c 8.3 repeat this morning sliding scale accucheck before meals continue to monitor BMP on NS, likely DC 1-2 days
[2023-10-22] MEDS: RIVAROXABAN 15MG TABLET 15 MG PO (18:07)
[2023-10-22 20:15] LABS: POC Glucose,Bedside 163 (70-110)
[2023-10-22] MEDS: MONTELUKAST SODIUM 10MG TAB 10 MG PO (21:15)
[2023-10-22] MEDS: ATORVASTATIN 40MG TABLET 40 MG PO (21:16)
[2023-10-22] MEDS: TAMSULOSIN 0.4MG CAPSULE 0.800000000000000044 MG PO (21:16)
[2023-10-23] VITALS: BP 124/67; PULSE 79; PULSE 80; RESP 16; TEMP 37.1; O2SAT 94
[2023-10-23] MEDS: 0.9 % SODIUM CHLORIDE 1000ML 1,000 ML 100 ML IV ×3 (01:46→23:59)
[2023-10-23] MEDS: MEROPENEM 1 GM in 0.9 % SODIUM CHLORIDE 100 ML IV (03:03)
[2023-10-23 04:00] VITALS: BP 117/63; PULSE 84; PULSE 92; RESP 18; TEMP 37.1; O2SAT 98; BMI 30.7
--- NOTE | 2023-10-23 04:51 | PC.NURSE ---
VITAL SIGNS STABLE/AFEBRILE. WAS MEDICATED WITH OXYCODONE 10 MG PO AT 2200 FOR CHRONIC BACK PAIN. HAS HAD NO C/O PAIN SINCE THEN. [place] PWD APPLIED TO PENIS AND INNER GROINS FOR RASH/REDNESS. F/C PATENT AND INTACT TO BSD, URINE CLEAR YELLOW. SIDE RAILS PADDED. NO SEIZURE ACTIVITY NOTED.
[2023-10-23 05:47] LABS: POC Glucose,Bedside 140 (70-110)
[2023-10-23] MEDS: LEVOTHYROXINE 175MCG (0.175MG) TAB 175 MCG PO (06:22)
[2023-10-23] MEDS: FLUTICASONE HFA 110MCG INHALER 1 PUFF IH ×2 (06:51→22:36)
[2023-10-23 07:29] LABS: Basophils # 0.1 K/mm3 (0-0.2); Basophils % 0.7 % (0.1-2.0); Eosinophils # 0.1 K/mm3 (0.0-0.4); Eosinophils % 1.6 % (0.1-12.0); Hemoglobin 11.4 g/dL (14.1-18.0); Lymphocytes # 1.6 K/mm3 (0.7-4.5); Lymphocytes % 18.5 % (10-50); Mean Corpuscular HGB Conc 30.8 g/dL (31.8-35.4); Mean Corpuscular Hemoglobin 28.9 pg (27.0-31.2); Mean Corpuscular Volume 93.9 fl (80-94); Mean Platelet Volume 9.9 fl (7.4-10.4); Monocytes # 0.7 K/mm3 (0.1-1.0); Monocytes % 7.8 % (1.7-9.3); Neutrophils % 71.4 % (37.0-80.0); Platelet Count 157 K/mm3 (142-424); Red Blood Count 3.94 M/mm3 (4.60-6.20); Red Cell Distribution Width 17.5 % (11.5-17.5); White Blood Count 8.4 K/mm3 (4.8-10.8)
[2023-10-23 07:50] LABS: Anion Gap 17.1 mEq/L (5-15); Blood Urea Nitrogen 14 mg/dl (9-20); Calcium 8.8 mg/dl (8.4-10.2); Carbon Dioxide 19 mmol/L (22.0-30.0); Chloride 93 mmol/L (98-107); Creatinine Clearance Estimated 102 mL/min (50-200); Estimated Glomerular Filt Rate 75 ml/min (>60); GFR (African American) 90 ML/MIN (>60); Glucose 128 mg/dl (74-100); Potassium 4.1 mmoL/L (3.5-5.1); Sodium 125 mmol/L (136-145)
[2023-10-23 08:00] VITALS: BP 119/65; PULSE 90; RESP 17; TEMP 36.6; O2SAT 95
[2023-10-23] MEDS: POLYETHYLENE GLYCOL 3350 17 GM PACKET PO ×2 (08:54→20:26)
[2023-10-23] MEDS: ENOXAPARIN 40MG/0.4ML SYRINGE 40 MG SQ (08:54)
[2023-10-23] MEDS: TOPIRAMATE 25MG TABLET 25 MG PO (08:55)
[2023-10-23] MEDS: ISOSORBIDE MONO 60MG TAB.ER.24H 60 MG PO (08:55)
[2023-10-23] MEDS: OXYBUTYNIN 5MG TAB 5 MG PO ×3 (08:55→20:26)
[2023-10-23] MEDS: PREGABALIN 100MG CAPSULE 100 MG PO ×3 (08:55→20:25)
[2023-10-23] MEDS: diazePAM 5MG TABLET 5 MG PO ×3 (08:55→20:25)
[2023-10-23] MEDS: PANTOPRAZOLE 40MG TABLET 40 MG PO (08:55)
[2023-10-23] MEDS: ALLOPURINOL 300MG TABLET 300 MG PO (08:56)
[2023-10-23] MEDS: METOPROLOL SUCCINATE XL 25MG TABLET 25 MG PO (08:56)
[2023-10-23] MEDS: ASPIRIN 81MG CHEWABLE TABLET 81 MG PO (08:56)
[2023-10-23] MEDS: ARIPiprazole 10MG TABLET 5 MG PO (08:56)
[2023-10-23] MEDS: NYSTATIN TOPICAL POWDER 30GM TP ×2 (08:58→20:25)
--- NOTE | 2023-10-23 08:58 | P.PN_ITS ---
Subjective *Date: 10/23/23 *Time: 08:58 Medical Exam Vital signs and Labs for Last 24 Hours: Vital Signs Temp Pulse Pulse Resp BP Pulse Ox O2 Del Method 10/23/23 08:00 97.8 F 90 17 119/65 95 10/23/23 06:31 Room Air 10/23/23 04:55 Room Air 10/23/23 04:00 98.8 F 92 H 18 117/63 98 Room Air 10/23/23 04:00 84 10/23/23 03:00 Room Air 10/23/23 01:00 Room Air 10/23/23 00:00 98.7 F 80 16 124/67 94 L Room Air 10/23/23 00:00 79 10/22/23 22:51 Room Air 10/22/23 21:00 Room Air 10/22/23 20:00 93 L Room Air 10/22/23 20:00 97.7 F 76 18 118/56 L 95 Room Air 10/22/23 20:00 76 10/22/23 18:36 Room Air 10/22/23 17:00 Room Air 10/22/23 16:00 81 10/22/23 15:47 98.5 F 78 18 112/63 97 Room Air 10/22/23 15:00 Room Air 10/22/23 13:00 Nasal Cannula 10/22/23 12:00 70 10/22/23 11:28 97.6 F 70 17 107/57 L 96 Room Air 10/22/23 11:00 Room Air 10/22/23 09:00 Room Air Intake and Output 10/22/23 10/23/23 10/23/23 23:59 07:59 15:59 Intake Total 1764 / 4186 570 / 570 0 / 570 Output Total 2600 / 2600 Balance 1764 / -2714 -2030 / -2030 0 / -2030 Intake: Intake, Oral Amount 1056 / 3378 0 / 0 Intake, Total IV Amount 708 / 808 570 / 570 0.9 % Sodium Chloride 1000ML 1, 708 / 708 470 / 470 000 ml @ 100 mls/hr IV .Q10H DORYS Rx#:[id number] Meropenem 1 gm In 0.9 % Sodium 100 / 100 Chloride 100 ml @ 100 mls/hr IV Q8H DORYS Rx#:[id number] Output: Output, Urine Amount 2600 / 2600 Other: Number of Unmeasured Voids 0 Weight 99.609 kg Patient Weight 10/23/23 23:59 Weight 99.609 kg Laboratory Results - last 24 hr 10/20/23 00:50: Serum Osmolality 249 L, Urine Osmolality 458 10/22/23 06:26: Sodium 124 L, Potassium 4.8, Chloride 92 L, Carbon Dioxide 21 L, Anion Gap 15.8 H, BUN 16, Creatinine 1.10, Estimated Creat Clear 88, Estimated GFR 67, Est GFR ( Amer) 81, Glucose 145 H, Calcium 9.0 10/22/23 11:02: POC Glucose 161 H 10/22/23 16:08: POC Glucose 129 H 10/22/23 20:08: POC Glucose 163 H 10/23/23 05:37: POC Glucose 140 H 10/23/23 06:20: WBC 8.4, RBC 3.94 L, Hgb 11.4 L, Hct 37.0 L, MCV 93.9, MCH 28.9, MCHC 30.8 L, RDW 17.5, Plt Count 157, MPV 9.9, Neut % (Auto) 71.4, Lymph % (Auto) 18.5, [place] % (Auto) 7.8, Eos % (Auto) 1.6, Baso % (Auto) 0.7, Neut # (Auto) 6.0, Lymph # (Auto) 1.6, [place] # (Auto) 0.7, Eos # (Auto) 0.1, Baso # (Auto) 0.1, Sodium 125 L, Potassium 4.1, Chloride 93 L, Carbon Dioxide 19 L, Anion Gap 17.1 H, BUN 14, Creatinine 1.00, Estimated Creat Clear 102, Estimated GFR 75, Est GFR ( Amer) 90, Glucose 128 H, Calcium 8.8 I & O for Labs for Last 24 Hours: Intake & Output 10/20/23 10/21/23 10/22/23 10/23/23 23:59 23:59 23:59 23:59 Intake Total 1652 / 1652 2792 / 3252 4186 / 4186 570 / 570 Output Total 2400 / 2400 6000 / 6000 6900 / 6900 2600 / 2600 Balance -748 / -748 -3208 / -2748 -2714 / / Weight 93.582 kg 93.621 kg 93.84 kg 99.609 kg Microbiology Reports for the Last 24 Hours: Microbiology 10/20/23 00:50 Urine,Clean Catch Urine Culture - Final Escherichia coli The patient's infection will respond to the chosen ABx?: Yes (AFEBRILE OVER 24 HRS, WHITE COUNT 8.4.) Is the patient receiving the right drug, dose, and route?: Yes Could a more targeted ABx be ordered?: No (BLOOD CULTURE PENDING, URINE CULTURE= ESBL E. COLI SENSITIVE TO MEROPENEM.)
[2023-10-23] MEDS: OXYCODONE 5MG IMMEDIATE RELEASE TABLET 10 MG PO ×2 (09:10→16:35)
[2023-10-23] MEDS: SENNA 8.6MG TABLET 8.59999999999999964 MG PO (11:46)
[2023-10-23] MEDS: RANOLAZINE 500MG ER TABLET 500 MG PO ×2 (11:47→23:14)
[2023-10-23 11:55] LABS: POC Glucose,Bedside 155 (70-110)
[2023-10-23] MEDS: ERTAPENEM SODIUM 1 GM in 0.9 % SODIUM CHLORIDE 50 ML IV (12:01)
[2023-10-23 16:00] VITALS: BP 115/68; PULSE 83; RESP 20; TEMP 36.6; O2SAT 97
[2023-10-23] MEDS: RIVAROXABAN 15MG TABLET 15 MG PO (16:35)
[2023-10-23 16:46] LABS: POC Glucose,Bedside 123 (70-110)
--- NOTE | 2023-10-23 17:44 | PC.NURSE ---
PT PLEASANT WITH NO ISSUES FROM PREVIOUS SHIFT.
[2023-10-23 20:00] VITALS: BP 125/69; PULSE 95; RESP 16; TEMP 36.9; O2SAT 93; O2SAT 94
--- NOTE | 2023-10-23 20:06 | EXP.ACUTE.PN ---
Subjective *Date: 10/23/23 *Time: 20:09 Interval history: Patient complains of not having had a good bowel movement in a few days. Had 1 charted yesterday however. Stable on room air. Afebrile. Seeing improvement in kidney function. Auto diuresing aggressively. -8.7 L since admission. Sodium slowly improving. Medical Exam Vital signs and Labs for Last 24 Hours: Vital Signs Temp Pulse Pulse Resp BP Pulse Ox O2 Del Method 10/23/23 18:27 Room Air 10/23/23 17:00 Room Air 10/23/23 16:00 97.9 F 83 20 115/68 97 Room Air 10/23/23 15:00 Room Air 10/23/23 13:00 Room Air 10/23/23 11:00 Room Air 10/23/23 09:00 Room Air 10/23/23 08:00 Room Air 10/23/23 08:00 97.8 F 90 17 119/65 95 10/23/23 06:31 Room Air 10/23/23 04:55 Room Air 10/23/23 04:00 98.8 F 92 H 18 117/63 98 Room Air 10/23/23 04:00 84 10/23/23 03:00 Room Air 10/23/23 01:00 Room Air 10/23/23 00:00 98.7 F 80 16 124/67 94 L Room Air 10/23/23 00:00 79 10/22/23 22:51 Room Air 10/22/23 21:00 Room Air Intake and Output 10/23/23 10/23/23 10/23/23 07:59 15:59 23:59 Intake Total 570 / 2070 750 / 2070 750 / 2070 Output Total 2600 / 5100 1600 / 5100 900 / 5100 Balance -2030 / -3030 -850 / -3030 -150 / -3030 Intake: Intake, Oral Amount 750 / 1500 750 / 1500 Intake, Total IV Amount 570 / 570 0.9 % Sodium Chloride 1000ML 1, 470 / 470 000 ml @ 100 mls/hr IV .Q10H [facility] Rx#:[id number] Meropenem 1 gm In 0.9 % Sodium 100 / 100 Chloride 100 ml @ 100 mls/hr IV Q8H [facility] Rx#:[id number] Output: Output, Urine Amount 2600 / 5100 1600 / 5100 900 / 5100 Other: Number of Unmeasured Voids 0 0 0 Weight 99.609 kg Patient Weight 10/23/23 23:59 Weight 99.609 kg Laboratory Results - last 24 hr 10/20/23 00:50: Serum Osmolality 249 L 10/22/23 20:08: POC Glucose 163 H 10/23/23 05:37: POC Glucose 140 H 10/23/23 06:20: WBC 8.4, RBC 3.94 L, Hgb 11.4 L, Hct 37.0 L, MCV 93.9, MCH 28.9, MCHC 30.8 L, RDW 17.5, Plt Count 157, MPV 9.9, Neut % (Auto) 71.4, Lymph % (Auto) 18.5, [place] % (Auto) 7.8, Eos % (Auto) 1.6, Baso % (Auto) 0.7, Neut # (Auto) 6.0, Lymph # (Auto) 1.6, [place] # (Auto) 0.7, Eos # (Auto) 0.1, Baso # (Auto) 0.1, Sodium 125 L, Potassium 4.1, Chloride 93 L, Carbon Dioxide 19 L, Anion Gap 17.1 H, BUN 14, Creatinine 1.00, Estimated Creat Clear 102, Estimated GFR 75, Est GFR ( Amer) 90, Glucose 128 H, Calcium 8.8 10/23/23 11:43: POC Glucose 155 H 10/23/23 16:33: POC Glucose 123 H I & O for Labs for Last 24 Hours: Intake & Output 10/20/23 10/21/23 10/22/23 10/23/23 23:59 23:59 23:59 23:59 Intake Total 1652 / 1652 2792 / 3252 4186 / 4186 2069 / 2070 Output Total 2400 / 2400 6000 / 6000 6900 / 6900 5100 / 5100 Balance -748 / -748 -3208 / -2748 -2714 / -2714 -3030 / -3030 Weight 93.582 kg 93.621 kg 93.84 kg 99.609 kg Constitutional: Present no acute distress, obese, chronically ill appearing and cooperative Head: Present atraumatic and normocephalic ENT: Present normal exam Neck: Present normal inspection Respiratory: Present normal respiratory effort; Absent rhonchi, wheezes or crackles Cardiac: Present Reg Rate and Rhythm GI: Present soft, distention, tenderness (Nonfocal) and normal bowel sounds Comment:: Rodriguez in place, edematous Extremities: Present normal inspection and full ROM Skin: Present intact; Absent erythema Neuro: Present Grossly Intact, alert, awake, oriented x 3 and moves all extremities Assessment and Plan *Assessment and plan (1) Catheter-associated urinary tract infection: Status: Acute Qualifiers: Encounter type: initial encounter Indwelling urinary catheter type: indwelling urethral catheter Qualified Code(s): T83.511A - Infection and inflammatory reaction due to indwelling urethral catheter, initial encounter; N39.0 - Urinary tract infection, site not specified Category: Medical Code(s): T83.511A - Infection and inflammatory reaction due to indwelling urethral catheter, initial encounter; N39.0 - Urinary tract infection, site not specified (2) Acute hyponatremia: Status: Acute Category: Medical Code(s): E87.1 - Hypo-osmolality and hyponatremia (3) Abdominal pain: Status: Acute Qualifiers: Abdominal location: lower abdomen, unspecified Qualified Code(s): R10.30 - Lower abdominal pain, unspecified Category: Medical Code(s): R10.9 - Unspecified abdominal pain (4) Diabetes mellitus type 2 in obese: Problem Comment: As I mentioned in the past having rigid A1c goals does not seem appropriate in this patient. However according to the patient and his daughter his last A1c which was done outside of our system was 6.5 which is excellent. Will continue with the current therapies. Status: Acute Category: Medical Code(s): E11.69 - Type 2 diabetes mellitus with other specified complication; E66.9 - Obesity, unspecified Plan 68-year-old male with history of prior cauda equina syndrome and chronic urinary retention with chronic indwelling Rodriguez, recent urethral repair after a laceration from Rodriguez's, COPD, hypertension hyperlipidemia, diabetes presents with vomiting and abdominal pain. on arrival initial work up showed severe hyponatremia with sodium 109. on repeat, it was 116. Patient is also hypochloremic with mildly elevated anion gap. Initial lactate was normal at 1.9. The lactate on the VBG came back markedly elevated at 13. Repeat lactate taken immediately came back at 2.8. Urine sodium is appropriately low given hyponatremia. Urine and serum osmolality not yet returned. Initial troponin undetectably low. Urine shows too numerous to count white blood cells and 3+ bacteria, negative nitrates. ED requeted admission for further work up. Agreed for admission. Showing clinical improvement. Urine culture positive for E. coli, will transition to ertapenem today. Continues to require inpatient management. Problems addressed as follows: Catheter associated UTI due to E. coli -Transition to ertapenem for once daily dosing of 1 g -Transition to Bactrim at discharge to avoid need for PICC line. Treat for total of 7 days, last dose on 10/25 -BMP and CBC ordered for the morning -White cell count normalized today 0.4 Acute hyponatremia: improving -Sodium 125 today, chloride 93. Showing improvement. -Continue normal saline at 75 cc an hour. -Auto diuresing, -8.7 L since admission -Would like to see sodium above 130 before discharge home Abdominal pain likely secondary to UTI/cystitis versus constipation -Bowel movement charted yesterday. If no bowel movement however by tomorrow, will consider initiation of enema -Continue aggressive bowel regimen with relaxed state, senna scheduled Diabetes - A1c better controlled at 7.1 this admission -Continue sliding scale insulin with fingersticks ACHS DNR Diabetic diet
[2023-10-23 20:20] LABS: POC Glucose,Bedside 151 (70-110)
[2023-10-23] MEDS: ATORVASTATIN 40MG TABLET 40 MG PO (20:26)
[2023-10-23] MEDS: TAMSULOSIN 0.4MG CAPSULE 0.800000000000000044 MG PO (20:26)
[2023-10-23] MEDS: MONTELUKAST SODIUM 10MG TAB 10 MG PO (20:26)
[2023-10-23] MEDS: humaLOG 100 UNITS/ML 3ML VIAL (SSI) SQ (20:27)
--- NOTE | 2023-10-23 21:08 | PC.NURSE ---
[address] DR WEBB NOTIFIED RE NO BMX 5 DAYS ACCORDING TO PATIENT WHO ALSO SAYS MIRALX DAILY NOT WORKIN. MIRALAX INCREASED TO BID. SEE AUG.
[2023-10-24] VITALS: BP 120/74; PULSE 96; RESP 18; TEMP 36.5; O2SAT 90
[2023-10-24 04:00] VITALS: BP 113/67; PULSE 99; RESP 18; TEMP 36.8; O2SAT 94; BMI 30.4
--- NOTE | 2023-10-24 04:57 | PC.NURSE ---
OFFERED PRUNE JUICE WITH [facility] . REFUSED AFTER TAKING 1 SIP STATING HE DID NOT LIKE IT. ENCOURAGED HIM TO DRINK IT TO HELP WITH CONSTIPATION. RECEIVED MIRALAX ORDERED. HAS NOT HAD A BM TONIGHT, CROWDER CATH TO BSD, UOP CLEAR YELLOW AND ADEQUATE AMTS. SEIZURE PRECAUTIONS. CONTACT PRECAUTIONS FOR ESBL.
[2023-10-24 05:31] LABS: POC Glucose,Bedside 166 (70-110)
[2023-10-24] MEDS: humaLOG 100 UNITS/ML 3ML VIAL (SSI) SQ (06:04)
[2023-10-24] MEDS: LEVOTHYROXINE 175MCG (0.175MG) TAB 175 MCG PO (06:04)
[2023-10-24] MEDS: FLUTICASONE HFA 110MCG INHALER 1 PUFF IH ×2 (06:37→20:39)
[2023-10-24 06:58] LABS: Basophils % 0.2 % (0.1-2.0); Eosinophils # 0.1 K/mm3 (0.0-0.4); Hematocrit 35.5 % (42.0-52.0); Hemoglobin 11.5 g/dL (14.1-18.0); Lymphocytes % 19.3 % (10-50); Mean Corpuscular HGB Conc 32.5 g/dL (31.8-35.4); Mean Corpuscular Hemoglobin 28.5 pg (27.0-31.2); Mean Corpuscular Volume 87.8 fl (80-94); Mean Platelet Volume 9.4 fl (7.4-10.4); Monocytes # 0.7 K/mm3 (0.1-1.0); Monocytes % 6.5 % (1.7-9.3); Neutrophils # 7.7 K/mm3 (1.8-7.8); Platelet Count 209 K/mm3 (142-424); Red Blood Count 4.04 M/mm3 (4.60-6.20); Red Cell Distribution Width 17.9 % (11.5-17.5); White Blood Count 10.5 K/mm3 (4.8-10.8)
[2023-10-24 07:14] LABS: Anion Gap 13.4 mEq/L (5-15); Blood Urea Nitrogen 13 mg/dl (9-20); Calcium 8.9 mg/dl (8.4-10.2); Carbon Dioxide 22 mmol/L (22.0-30.0); Chloride 96 mmol/L (98-107); Creatinine Clearance Estimated 101 mL/min (50-200); Estimated Glomerular Filt Rate 97 ml/min (>60); GFR (African American) 117 ML/MIN (>60); Glucose 138 mg/dl (74-100); Potassium 4.4 mmoL/L (3.5-5.1); Sodium 127 mmol/L (136-145)
[2023-10-24 08:00] VITALS: BP 110/80; PULSE 108; RESP 16; TEMP 36.5; O2SAT 93
[2023-10-24] MEDS: SODIUM PHOS/BIPHOSPHATE FLEET 133ML ENEMA 133 ML RC (08:53)
[2023-10-24] MEDS: ENOXAPARIN 40MG/0.4ML SYRINGE 40 MG SQ (08:53)
[2023-10-24] MEDS: NYSTATIN TOPICAL POWDER 30GM TP ×2 (08:53→21:15)
[2023-10-24] MEDS: POLYETHYLENE GLYCOL 3350 17 GM PACKET PO ×2 (08:53→21:10)
[2023-10-24] MEDS: ARIPiprazole 10MG TABLET 5 MG PO (08:53)
[2023-10-24] MEDS: ERTAPENEM SODIUM 1 GM in 0.9 % SODIUM CHLORIDE 50 ML IV (08:53)
[2023-10-24] MEDS: PANTOPRAZOLE 40MG TABLET 40 MG PO (08:54)
[2023-10-24] MEDS: CITALOPRAM 20MG TABLET 20 MG PO (08:54)
[2023-10-24] MEDS: TOPIRAMATE 25MG TABLET 25 MG PO (08:54)
[2023-10-24] MEDS: SENNA 8.6MG TABLET 8.59999999999999964 MG PO (08:54)
[2023-10-24] MEDS: diazePAM 5MG TABLET 5 MG PO ×3 (08:54→21:10)
[2023-10-24] MEDS: ASPIRIN 81MG CHEWABLE TABLET 81 MG PO (08:54)
[2023-10-24] MEDS: ISOSORBIDE MONO 60MG TAB.ER.24H 60 MG PO (08:54)
[2023-10-24] MEDS: OXYBUTYNIN 5MG TAB 5 MG PO ×3 (08:55→21:10)
[2023-10-24] MEDS: ALLOPURINOL 300MG TABLET 300 MG PO (08:55)
[2023-10-24] MEDS: METOPROLOL SUCCINATE XL 25MG TABLET 25 MG PO (08:55)
[2023-10-24] MEDS: PREGABALIN 100MG CAPSULE 100 MG PO ×3 (08:55→21:10)
[2023-10-24] MEDS: OXYCODONE 5MG IMMEDIATE RELEASE TABLET 10 MG PO ×2 (08:57→16:58)
[2023-10-24] MEDS: 0.9 % SODIUM CHLORIDE 1000ML 1,000 ML 100 ML IV (11:29)
[2023-10-24] MEDS: RANOLAZINE 500MG ER TABLET 500 MG PO (11:30)
[2023-10-24 11:40] LABS: POC Glucose,Bedside 130 (70-110)
[2023-10-24 12:00] VITALS: BP 111/65; PULSE 96; RESP 18; TEMP 36.4; O2SAT 93
[2023-10-24 15:30] VITALS: BP 117/67; PULSE 100; RESP 17; TEMP 36.5; O2SAT 94
[2023-10-24] MEDS: MINERAL OIL ENEMA 133ML 133 ML RC (15:34)
[2023-10-24 16:21] LABS: POC Glucose,Bedside 116 (70-110)
--- NOTE | 2023-10-24 16:33 | XR_ITS ---
PROCEDURE INFORMATION: Exam: XR Abdomen Exam date and time: 10/24/2023 5:16 PM Age: 68 years old Clinical indication: Bloating and constipation; Additional info: Constipation, distension TECHNIQUE: Imaging protocol: Radiologic exam of the abdomen. Views: Frontal supine view of the abdomen. 1 View. COMPARISON: CT ABDOMEN PELVIS W CON 10/20/2023 12:48 AM FINDINGS: Gastrointestinal tract: Diffuse gaseous and stool distended large bowel. Bones/joints: No acute findings. IMPRESSION: Diffuse gaseous and stool distended large bowel.
[2023-10-24] MEDS: RIVAROXABAN 15MG TABLET 15 MG PO (16:55)
--- NOTE | 2023-10-24 17:16 | EXP.ACUTE.PN ---
Subjective *Date: 10/24/23 *Time: 17:16 Interval history: Stable on room air today. Afebrile. Complaining of abdominal discomfort, still quite distended this morning. No bowel movement overnight. Denies any emesis but does have some mild nausea. Tolerating p.o. liquids Medical Exam Vital signs and Labs for Last 24 Hours: Vital Signs Temp Pulse Resp BP Pulse Ox O2 Del Method 10/24/23 15:30 97.7 F 100 H 17 117/67 94 L Room Air 10/24/23 15:00 Room Air 10/24/23 12:00 97.5 F L 96 H 18 111/65 93 L Room Air 10/24/23 08:00 97.7 F 108 H 16 110/80 93 L Room Air 10/24/23 06:27 Room Air 10/24/23 05:00 Room Air 10/24/23 04:00 98.2 F 99 H 18 113/67 94 L Room Air 10/24/23 03:00 Room Air 10/24/23 01:00 Room Air 10/24/23 00:00 97.7 F 96 H 18 120/74 90 L Room Air 10/23/23 23:00 Room Air 10/23/23 21:00 Room Air 10/23/23 20:00 93 L Room Air 10/23/23 20:00 98.5 F 95 H 16 125/69 94 L Room Air 10/23/23 18:27 Room Air Intake and Output 10/24/23 10/24/23 10/24/23 07:59 15:59 23:59 Intake Total 510 / 510 Output Total 1150 / 1150 Balance -640 / -640 Intake: Intake, Oral Amount 510 / 510 Output: Output, Urine Amount 1150 / 1150 Other: Number of Unmeasured Voids 0 Number of Bowel Movements 1 Weight 98.566 kg Patient Weight 10/24/23 23:59 Weight 98.566 kg Laboratory Results - last 24 hr 10/23/23 20:12: POC Glucose 151 H 10/24/23 05:24: POC Glucose 166 H 10/24/23 06:14: WBC 10.5, RBC 4.04 L, Hgb 11.5 L, Hct 35.5 L, MCV 87.8, MCH 28.5, MCHC 32.5, RDW 17.9 H, Plt Count 209 D, MPV 9.4, Neut % (Auto) 73.0, Lymph % (Auto) 19.3, [place] % (Auto) 6.5, Eos % (Auto) 1.0, Baso % (Auto) 0.2, Neut # (Auto) 7.7, Lymph # (Auto) 2.0, [place] # (Auto) 0.7, Eos # (Auto) 0.1, Baso # (Auto) 0.0, Sodium 127 L, Potassium 4.4, Chloride 96 L, Carbon Dioxide 22, Anion Gap 13.4, BUN 13, Creatinine 0.80, Estimated Creat Clear 101, Estimated GFR 97, Est GFR ( Amer) 117 D, Glucose 138 H, Calcium 8.9 10/24/23 11:33: POC Glucose 130 H 10/24/23 16:14: POC Glucose 116 H I & O for Labs for Last 24 Hours: Intake & Output 10/21/23 10/22/23 10/23/23 10/24/23 23:59 23:59 23:59 23:59 Intake Total 2792 / 3252 4186 / 4186 4136 / 4136 510 / 510 Output Total 6000 / 6000 6900 / 6900 5100 / 5100 1150 / 1150 Balance -3208 / -2748 -2714 / -2714 -964 / -964 -640 / -640 Weight 93.621 kg 93.84 kg 99.609 kg 98.566 kg Constitutional: Present no acute distress, obese, chronically ill appearing and cooperative Head: Present atraumatic and normocephalic ENT: Present normal exam Neck: Present normal inspection Respiratory: Present normal respiratory effort; Absent rhonchi, wheezes or crackles Cardiac: Present Reg Rate and Rhythm GI: Present soft, distention, tenderness (Nonfocal) and normal bowel sounds; Absent rigidity Comments:: Firm but not rigid. Comment:: Rodriguez in place, edematous Extremities: Present normal inspection and full ROM Skin: Present intact; Absent erythema Neuro: Present Grossly Intact, alert, awake, oriented x 3 and moves all extremities Assessment and Plan *Assessment and plan (1) Catheter-associated urinary tract infection: Status: Acute Qualifiers: Encounter type: initial encounter Indwelling urinary catheter type: indwelling urethral catheter Qualified Code(s): T83.511A - Infection and inflammatory reaction due to indwelling urethral catheter, initial encounter; N39.0 - Urinary tract infection, site not specified Category: Medical Code(s): T83.511A - Infection and inflammatory reaction due to indwelling urethral catheter, initial encounter; N39.0 - Urinary tract infection, site not specified (2) Acute hyponatremia: Status: Acute Category: Medical Code(s): E87.1 - Hypo-osmolality and hyponatremia (3) Abdominal pain: Status: Acute Qualifiers: Abdominal location: lower abdomen, unspecified Qualified Code(s): R10.30 - Lower abdominal pain, unspecified Category: Medical Code(s): R10.9 - Unspecified abdominal pain (4) Diabetes mellitus type 2 in obese: Problem Comment: As I mentioned in the past having rigid A1c goals does not seem appropriate in this patient. However according to the patient and his daughter his last A1c which was done outside of our system was 6.5 which is excellent. Will continue with the current therapies. Status: Acute Category: Medical Code(s): E11.69 - Type 2 diabetes mellitus with other specified complication; E66.9 - Obesity, unspecified (5) Constipation by delayed colonic transit: Status: Acute Category: Medical Code(s): K59.01 - Slow transit constipation Plan 68-year-old male with history of prior cauda equina syndrome and chronic urinary retention with chronic indwelling Rodriguez, recent urethral repair after a laceration from Rodriguez's, COPD, hypertension hyperlipidemia, diabetes presents with vomiting and abdominal pain. on arrival initial work up showed severe hyponatremia with sodium 109. on repeat, it was 116. Patient is also hypochloremic with mildly elevated anion gap. Initial lactate was normal at 1.9. The lactate on the VBG came back markedly elevated at 13. Repeat lactate taken immediately came back at 2.8. Urine sodium is appropriately low given hyponatremia. Urine and serum osmolality not yet returned. Initial troponin undetectably low. Urine shows too numerous to count white blood cells and 3+ bacteria, negative nitrates. ED requeted admission for further work up. Agreed for admission. Showing clinical improvement. Urine culture positive for E. coli, tolerating ertapenem. Plan to complete 7 days of antibiotics. Still no meaningful bowel movement. Continues to require inpatient management. Problems addressed as follows: Catheter associated UTI due to E. coli -Continue ertapenem for once daily dosing of 1 g -Transition to Bactrim at discharge to avoid need for PICC line. Treat for total of 7 days, last dose on 10/25 -BMP and CBC ordered for the morning -White cell count normal at 10 Constipation Abdominal pain -Aggressive bowel regimen with MiraLAX and senna. -2 enemas today administered. Continue to monitor. -Had 1 small bowel movement after first enema but no significant improvement in abdominal discomfort -KUB pending -States he does not have trouble going at home however CT on admission showed constipation. In conjunction with his cauda equina and chronic opiate therapy, suspect chronic constipation that is acutely worse due to his hospitalization. Acute hyponatremia: improving -Sodium 127, chloride 96 today. showing improvement. -Continue normal saline at 75 cc an hour. -Auto diuresing, -7.6 L since admission. Improved urine output over the past 24 hours. -Would like to see sodium above 130 before discharge home Abdominal pain likely secondary to UTI/cystitis versus constipation -Bowel movement charted yesterday. If no bowel movement however by tomorrow, will consider initiation of enema -Continue aggressive bowel regimen with relaxed state, senna scheduled Diabetes - A1c better controlled at 7.1 this admission -Continue sliding scale insulin with fingersticks ACHS DNR Diabetic diet
--- NOTE | 2023-10-24 18:39 | PC.NURSE ---
Pt has done well since I took over care at 1500. c/o pain x1. PRN meds given. No other complaints this shift.
[2023-10-24 20:00] VITALS: BP 102/70; PULSE 102; RESP 20; TEMP 36.9; O2SAT 95
[2023-10-24 20:46] LABS: POC Glucose,Bedside 143 (70-110)
[2023-10-24] MEDS: TAMSULOSIN 0.4MG CAPSULE 0.800000000000000044 MG PO (21:10)
[2023-10-24] MEDS: MONTELUKAST SODIUM 10MG TAB 10 MG PO (21:10)
[2023-10-24] MEDS: ATORVASTATIN 40MG TABLET 40 MG PO (21:10)
[2023-10-24] MEDS: ACETAMINOPHEN 325MG TAB 650 MG PO (21:13)
[2023-10-25] VITALS: BP 99/66; PULSE 93; RESP 18; TEMP 36.7; O2SAT 92
[2023-10-25] MEDS: 0.9 % SODIUM CHLORIDE 1000ML 1,000 ML 100 ML IV (01:57)
[2023-10-25 04:00] VITALS: BP 116/67; PULSE 77; RESP 18; TEMP 36.3; O2SAT 94; BMI 30.5
[2023-10-25 05:55] LABS: Basophils # 0.1 K/mm3 (0-0.2); Basophils % 0.7 % (0.1-2.0); Eosinophils # 0.2 K/mm3 (0.0-0.4); Eosinophils % 3.1 % (0.1-12.0); Hematocrit 33.6 % (42.0-52.0); Hemoglobin 10.9 g/dL (14.1-18.0); Lymphocytes # 2.5 K/mm3 (0.7-4.5); Lymphocytes % 33.9 % (10-50); Mean Corpuscular HGB Conc 32.4 g/dL (31.8-35.4); Mean Corpuscular Hemoglobin 28.3 pg (27.0-31.2); Mean Corpuscular Volume 87.2 fl (80-94); Mean Platelet Volume 8.4 fl (7.4-10.4); Monocytes # 0.7 K/mm3 (0.1-1.0); Monocytes % 9.6 % (1.7-9.3); Neutrophils # 3.9 K/mm3 (1.8-7.8); Neutrophils % 52.7 % (37.0-80.0); Platelet Count 190 K/mm3 (142-424); Red Blood Count 3.85 M/mm3 (4.60-6.20); Red Cell Distribution Width 17.7 % (11.5-17.5); White Blood Count 7.4 K/mm3 (4.8-10.8)
[2023-10-25] MEDS: FLUTICASONE HFA 110MCG INHALER 1 PUFF IH (05:57)
[2023-10-25] MEDS: LEVOTHYROXINE 175MCG (0.175MG) TAB 175 MCG PO (06:01)
[2023-10-25 06:09] LABS: Anion Gap 14.1 mEq/L (5-15); Blood Urea Nitrogen 13 mg/dl (9-20); Calcium 8.6 mg/dl (8.4-10.2); Carbon Dioxide 21 mmol/L (22.0-30.0); Chloride 98 mmol/L (98-107); Creatinine Clearance Estimated 101 mL/min (50-200); Estimated Glomerular Filt Rate 84 ml/min (>60); GFR (African American) 102 ML/MIN (>60); Glucose 106 mg/dl (74-100); Potassium 4.1 mmoL/L (3.5-5.1); Sodium 129 mmol/L (136-145)
[2023-10-25 06:13] LABS: POC Glucose,Bedside 107 (70-110)
--- NOTE | 2023-10-25 07:46 | XR_ITS ---
FINAL REPORT CLINICAL HISTORY: constipation, improvement in gaseous distension? FINDINGS: SINGLE VIEW ABDOMEN A single view of the abdomen was obtained. There is a nonobstructive bowel gas pattern. There is a large amount of gas and stool. Small bowel is moderately distended. No abnormal calcifications are identified. Abnormal sclerosis and irregularity is seen of the right superior femoral head concerning for underlying AVN. IMPRESSION: Large amount of gas and stool with moderate small bowel distention. No evidence of obstruction. Questionable AVN of the right femoral head. Reviewed, Interpreted and Dictated by Ryland Vargas MD Transcribed by Kia Tate Authenticated and [facility]
[2023-10-25 08:00] VITALS: BP 92/60; PULSE 70; RESP 18; TEMP 36.6; O2SAT 96
[2023-10-25] MEDS: ALLOPURINOL 300MG TABLET 300 MG PO (08:33)
[2023-10-25] MEDS: CITALOPRAM 20MG TABLET 20 MG PO (08:34)
[2023-10-25] MEDS: ASPIRIN 81MG CHEWABLE TABLET 81 MG PO (08:34)
[2023-10-25] MEDS: ARIPiprazole 10MG TABLET 5 MG PO (08:34)
[2023-10-25] MEDS: ENOXAPARIN 40MG/0.4ML SYRINGE 40 MG SQ (08:34)
[2023-10-25] MEDS: ERTAPENEM SODIUM 1 GM in 0.9 % SODIUM CHLORIDE 50 ML IV (08:35)
[2023-10-25] MEDS: ISOSORBIDE MONO 60MG TAB.ER.24H 60 MG PO (08:35)
[2023-10-25] MEDS: PANTOPRAZOLE 40MG TABLET 40 MG PO (08:36)
[2023-10-25] MEDS: METOPROLOL SUCCINATE XL 25MG TABLET 25 MG PO (08:36)
[2023-10-25] MEDS: OXYBUTYNIN 5MG TAB 5 MG PO ×2 (08:36→12:58)
[2023-10-25] MEDS: TOPIRAMATE 25MG TABLET 25 MG PO (08:37)
[2023-10-25] MEDS: POLYETHYLENE GLYCOL 3350 17 GM PACKET PO (08:37)
[2023-10-25] MEDS: SENNA 8.6MG TABLET 8.59999999999999964 MG PO (08:38)
[2023-10-25] MEDS: NYSTATIN TOPICAL POWDER 30GM TP (08:39)
[2023-10-25] MEDS: diazePAM 5MG TABLET 5 MG PO ×2 (08:48→15:15)
[2023-10-25] MEDS: OXYCODONE 5MG IMMEDIATE RELEASE TABLET 10 MG PO (08:48)
[2023-10-25] MEDS: PREGABALIN 100MG CAPSULE 100 MG PO ×2 (08:48→15:15)
[2023-10-25 11:15] LABS: POC Glucose,Bedside 134 (70-110)
[2023-10-25 11:36] VITALS: BP 104/64; PULSE 73; RESP 17; TEMP 36.5; O2SAT 93
[2023-10-25] MEDS: SODIUM PHOS/BIPHOSPHATE FLEET 133ML ENEMA 133 ML RC (12:24)
[2023-10-25] MEDS: RANOLAZINE 500MG ER TABLET 500 MG PO (12:24)
--- NOTE | 2023-10-25 12:39 | EXP.DC.SUM ---
General Admission date:: 10/20/23 Discharge date: 10/25/23 HPI HPI HPI: This is a 68-year-old male with history of prior cauda equina syndrome and chronic urinary retention with chronic indwelling Rodriguez, recent urethral repair after a laceration from Rodriguez's, COPD, hypertension hyperlipidemia, diabetes presents with vomiting and abdominal pain. He reports that he has been vomiting since about 10:00 today. He is continue to have normal bowel movements today. He reports abdominal pain, more so on the right lower aspect. Nothing like this has happened before. Vomitus is yellow, not blood containing. He denies any chest pain. He reports that he has been much more thirsty than normal for the last few days, has been drinking more water. Admitted fir treatment. Hospital Course Hospital Course Hospital Course: 68-year-old male with history of prior cauda equina syndrome and chronic urinary retention with chronic indwelling Rodriguez, recent urethral repair after a laceration from Rodriguez's, COPD, hypertension hyperlipidemia, diabetes presents with vomiting and abdominal pain. on arrival initial work up showed severe hyponatremia with sodium 109. on repeat, it was 116. Patient is also hypochloremic with mildly elevated anion gap. Initial lactate was normal at 1.9. The lactate on the VBG came back markedly elevated at 13. Repeat lactate taken immediately came back at 2.8. Urine sodium is appropriately low given hyponatremia. Urine and serum osmolality not yet returned. Initial troponin undetectably low. Urine shows too numerous to count white blood cells and 3+ bacteria, negative nitrates. ED requeted admission for further work up. Agreed for admission. Showed improvement after initiation of IV antibiotics. Urine culture positive for E. coli, tolerating ertapenem. Plan to complete 7 days of antibiotics. Did not have bowel movement for 5 days, aggressive bowel regimen was initiated. Had multiple bowel movements the day before and the day of discharge. Significant improvement in abdominal distention. Continue bowel regimen at discharge. Stable to discharge home. Problems addressed as follows: Catheter associated UTI due to E. coli -Presented with grossly abnormal urine, mild elevation in lactate, nausea and vomiting. Concern for catheter related UTI. Initiated on empiric antibiotics given his previous resistant bugs. Urine returned with E. coli that had mixed resistance. Was transitioned to ertapenem for daily dosing. Given sensitivity to Bactrim, will complete outpatient course with oral Bactrim, last dose of antibiotics due on 10/25. Significant improvement over course of hospitalization and patient's clinical status as well as appearance of urine. White cell count normalized, 7.4 on day of discharge. Catheter was exchanged during admission. Constipation Abdominal pain -CT on admission showed some constipation. Patient states he has somewhat regular bowel movements at home. On chronic opiate therapy plus cauda equina syndrome as a bed to the. Initiated on aggressive bowel regimen with MiraLAX, senna, necessitating 2 enemas to get bowel movements initiated day before discharge. Had multiple bowel movements thereafter. KUB on the day before discharge and day of discharge showed initially gaseous distention with significant stool burden, repeat on day of discharge showed significant improvement, will continue on aggressive bowel regimen due to patient's stool burden and neurologic condition in conjunction with opiate therapy putting him at risk for continued significant constipation. Acute hyponatremia: improving -Sodium 109 on admission, slow improvement with gradual improvement to 129 by day of discharge.improvement in mentation during admission. General normal saline hydration after initial hypertonic saline replacement. Findings consistent with hypoosmolar hyponatremia. Patient auto diuresed during admission. Put out over 7 L negative even with IV fluids and p.o. intake. Needs further monitoring as an outpatient. May necessitate sodium supplementation as an outpatient. Diabetes - A1c better controlled at 7.1 this admission. Treated with sliding some sticks ACHS during admission resume home regimen at discharge Total time spent on discharge 40 minutes in counseling, documentation, chart review, and direct care with patient. Exam Data for Last 24 hours Vital signs and Labs for Last 24 Hours: Temp Pulse Resp BP Pulse Ox O2 Del Method 97.7 F 73 17 104/64 L 93 L Room Air 10/25/23 11:36 10/25/23 11:36 10/25/23 11:36 10/25/23 11:36 10/25/23 11:36 10/25/23 11:36 Laboratory Results - last 24 hr 10/24/23 16:14: POC Glucose 116 H 10/24/23 20:28: POC Glucose 143 H 10/25/23 05:35: WBC 7.4 D, RBC 3.85 L, Hgb 10.9 L, Hct 33.6 L, MCV 87.2, MCH 28.3, MCHC 32.4, RDW 17.7 H, Plt Count 190, MPV 8.4, Neut % (Auto) 52.7, Lymph % (Auto) 33.9, [place] % (Auto) 9.6 H, Eos % (Auto) 3.1, Baso % (Auto) 0.7, Neut # (Auto) 3.9, Lymph # (Auto) 2.5, [place] # (Auto) 0.7, Eos # (Auto) 0.2, Baso # (Auto) 0.1, Sodium 129 L, Potassium 4.1, Chloride 98, Carbon Dioxide 21 L, Anion Gap 14.1, BUN 13, Creatinine 0.90, Estimated Creat Clear 101, Estimated GFR 84, Est GFR ( Amer) 102, Glucose 106 H D, Calcium 8.6 10/25/23 05:58: POC Glucose 107 10/25/23 10:38: POC Glucose 134 H I & O for Last 24 hours: Intake & Output 10/22/23 10/23/23 10/24/23 10/25/23 23:59 23:59 23:59 23:59 Intake Total 4186 / 4186 4136 / 4136 950 / 950 1940 / 1940 Output Total 6900 / 6900 5100 / 5100 1150 / 1150 1300 / 1300 Balance -2714 / -2714 -964 / -964 -200 / -200 640 / 640 Weight 93.84 kg 99.609 kg 98.566 kg 98.968 kg Constitutional Constitutional: no acute distress, obese, chronically ill appearing and disheveled *Routine HEENT Exam Head: Present normocephalic Eye: Present EOMI and PERRL ENT: Present mucous membranes moist *Routine Neck Exam Neck: Present supple; Absent lymphadenopathy *Routine Respiratory Exam Respiratory: Present CTA bilaterally; Absent rhonchi, wheezes or crackles *Routine Cardiovascular Exam Cardiovascular: Present RRR *Routine Abdominal Exam Abdominal: Present soft, normoactive bowel sounds, tenderness (Diffuse, intervally improved) and distended (With interval improvement after multiple bowel movements); Absent rebound or guarding *Routine Exam Comments: Rodriguez in place *Routine Extremities Exam Extremities: Absent cyanosis, clubbing or edema *Routine Skin Exam Skin: Present warm; Absent rash *Routine Neurological Exam Neurological: Present alert and oriented X3 Results Data Completed and Pending Labs on day of discharge: Labs from last 24 hours 10/25/23 10/25/23 10/25/23 10:38 05:58 05:35 WBC 7.4 D RBC 3.85 L Hgb 10.9 L Hct 33.6 L MCV 87.2 MCH 28.3 MCHC 32.4 RDW 17.7 H Plt Count 190 MPV 8.4 Neut % (Auto) 52.7 Lymph % (Auto) 33.9 [place] % (Auto) 9.6 H Eos % (Auto) 3.1 Baso % (Auto) 0.7 Neut # (Auto) 3.9 Lymph # (Auto) 2.5 [place] # (Auto) 0.7 Eos # (Auto) 0.2 Baso # (Auto) 0.1 Sodium 129 L Potassium 4.1 Chloride 98 Carbon Dioxide 21 L Anion Gap 14.1 BUN 13 Creatinine 0.90 Estimated Creat Clear 101 Estimated GFR 84 Est GFR ( Amer) 102 Glucose 106 H D POC Glucose 134 H 107 Calcium 8.6 10/24/23 10/24/23 20:28 16:14 WBC RBC Hgb Hct MCV MCH MCHC RDW Plt Count MPV Neut % (Auto) Lymph % (Auto) [place] % (Auto) Eos % (Auto) Baso % (Auto) Neut # (Auto) Lymph # (Auto) [place] # (Auto) Eos # (Auto) Baso # (Auto) Sodium Potassium Chloride Carbon Dioxide Anion Gap BUN Creatinine Estimated Creat Clear Estimated GFR Est GFR ( Amer) Glucose POC Glucose 143 H 116 H Calcium DS: Diagnosis Discharge Diagnosis (1) Catheter-associated urinary tract infection: Status: Acute Code(s): T83.511A - Infection and inflammatory reaction due to indwelling urethral catheter, initial encounter; N39.0 - Urinary tract infection, site not specified Qualifiers: Encounter type: initial encounter Indwelling urinary catheter type: indwelling urethral catheter Qualified Code(s): T83.511A - Infection and inflammatory reaction due to indwelling urethral catheter, initial encounter; N39.0 - Urinary tract infection, site not specified (2) Acute hyponatremia: Status: Acute Code(s): E87.1 - Hypo-osmolality and hyponatremia (3) Abdominal pain: Status: Acute Code(s): R10.9 - Unspecified abdominal pain Qualifiers: Abdominal location: lower abdomen, unspecified Qualified Code(s): R10.30 - Lower abdominal pain, unspecified (4) Diabetes mellitus type 2 in obese: Status: Acute Code(s): E11.69 - Type 2 diabetes mellitus with other specified complication; E66.9 - Obesity, unspecified Problem details: As I mentioned in the past having rigid A1c goals does not seem appropriate in this patient. However according to the patient and his daughter his last A1c which was done outside of our system was 6.5 which is excellent. Will continue with the current therapies. (5) Constipation by delayed colonic transit: Status: Acute Code(s): K59.01 - Slow transit constipation Meds Home Medications and Allergies Home Medications Medication Instructions Recorded Confirmed Type aspirin 81 mg chewable tablet 81 mg PO DAILY Heart Health 03/29/23 10/20/23 History allopurinol 300 mg tablet 300 mg PO DAILY Gout 90 days #90 04/17/23 10/20/23 Rx tabs atorvastatin 40 mg tablet 40 mg PO HS Cholesterol 90 days 04/17/23 10/20/23 Rx #90 tabs budesonide 90 mcg/actuation breath 1 inh inhalation BID 30 days #1 ea 04/17/23 10/20/23 Rx activated powder inhaler insulin lispro 100 unit/mL 25 unit (0.25 mL) SQ AC Diabetes 04/17/23 10/20/23 Rx subcutaneous pen 60 days #15 mL isosorbide mononitrate 60 mg 60 mg PO DAILY High Blood Pressure 04/17/23 10/20/23 Rx tablet,extended release 24 hr 90 days #90 tabs montelukast 10 mg tablet 10 mg PO DAILY allergies 90 days 04/17/23 10/20/23 Rx #90 tabs nitroglycerin 0.4 mg sublingual 0.4 mg sublingual Q5MINP PRN chest 04/17/23 10/20/23 Rx tablet pain #90 tabs oxybutynin chloride 15 mg 15 mg PO DAILY Bladder 90 days #90 04/17/23 10/20/23 Rx tablet,extended release 24 hr tabs potassium chloride 20 mEq 20 meq PO DAILY Supplement 90 days 04/17/23 10/20/23 Rx tablet,extended release #90 tabs rivaroxaban 15 mg tablet 15 mg PO QPMWITHMEAL Blood 04/17/23 10/20/23 Rx thinner/AFIB 90 days #90 tabs tamsulosin 0.4 mg capsule 0.8 mg (2 x 0.4 mg) PO HS Prostate 04/17/23 10/20/23 Rx 90 days #180 caps albuterol sulfate 90 mcg/actuation 2 inh inhalation Q4HP PRN SOA 05/12/23 10/20/23 History aerosol inhaler (Ventolin HFA) insulin glargine 100 unit/mL (3 80 unit SQ DAILY Diabetes 05/12/23 10/20/23 History mL) subcutaneous pen (Basaglar KwikPen U-100 Insulin) topiramate 25 mg tablet (Topamax) 25 mg PO DAILY Migraines 90 days 06/05/23 10/20/23 Rx #90 tabs semaglutide 2 mg/dose (8 mg/3 mL) 2 mg SQ WEEKLY 06/14/23 10/20/23 History subcutaneous pen injector (Ozempic) ranolazine 500 mg tablet,extended 500 mg PO Q12H #60 tabs 07/23/23 10/20/23 Rx release,12 hr aripiprazole 5 mg tablet 5 mg PO DAILY Mood #90 tabs 08/20/23 10/20/23 Rx diazepam 5 mg tablet 5 mg PO TID Tremors 90 days #270 09/04/23 10/20/23 Rx tabs escitalopram oxalate 10 mg tablet 10 mg PO DAILY 10/20/23 10/20/23 History furosemide 40 mg tablet 40 mg PO DAILY Fluid 10/20/23 10/20/23 History levothyroxine 175 mcg tablet 175 mcg PO DAILYDM 10/20/23 10/20/23 History metoprolol succinate 25 mg 25 mg PO DAILY 10/20/23 10/20/23 History tablet,extended release 24 hr oxycodone 10 mg tablet 10 mg PO Q6HP PRN chronic pain 10/20/23 10/20/23 History pantoprazole 40 mg tablet,delayed 40 mg PO DAILY 10/20/23 10/20/23 History release pregabalin 100 mg capsule 100 mg PO TID 10/20/23 10/20/23 History sennosides 8.6 mg tablet (Senna 8.6 mg PO BID 30 days #60 tabs 10/25/23 Rx Laxative) sulfamethoxazole 800 1 tab PO BID 2 days #4 tabs 10/25/23 Rx mg-trimethoprim 160 mg tablet (Bactrim DS) New Prescriptions to Start Prescriptions: sennosides [Senna Laxative] Bret Nieto sulfamethoxazole-trimethoprim [Bactrim DS] Bret Nieto Allergies Allergy/AdvReac Type Severity Reaction Status Date / Time gabapentin [From Neurontin] Allergy Intermediate Rash Verified 09/10/23 10:04 Discharge Plan Disposition Patient Disposition: Home, Self-Care Condition: Fair Discharge Order Discharge Orders: Discharge Order (Routine); Ordered 10/25/23 Ordered By: Bret Nieto Follow up Plan Follow up with: Paulo Brody DO [Staff Physician] - 11/05/23 9:15 am Prescriptions/Medication Reconciliation: New sennosides [Senna Laxative] 8.6 mg Tablet 8.6 mg PO BID 30 Days Qty: 60 0RF sulfamethoxazole-trimethoprim [Bactrim DS] 800-160 mg tablet 1 tab PO BID 2 Days Qty: 4 0RF Rx Instructions: start morning of 10/26/23 Continued ranolazine 500 mg tablet extended release 12 hr 500 mg PO Q12H Qty: 60 2RF Rx Instructions: do not break, crush, or chew tablet(s) Ozempic 2 mg/dose (8 mg/3 mL) pen injector 2 mg SQ WEEKLY allopurinol 300 mg tablet 300 mg PO DAILY 90 Days Qty: 90 3RF atorvastatin 40 mg tablet 40 mg PO HS 90 Days Qty: 90 2RF isosorbide mononitrate 60 mg tablet extended release 24 hr 60 mg PO DAILY 90 Days Qty: 90 2RF montelukast 10 mg tablet 10 mg PO DAILY 90 Days Qty: 90 2RF nitroglycerin 0.4 mg tablet, sublingual 0.4 mg SUBLINGUAL Q5MINP PRN (Reason: chest pain) Qty: 90 0RF oxybutynin chloride 15 mg tablet extended release 24hr 15 mg PO DAILY 90 Days Qty: 90 2RF potassium chloride 20 mEq tablet extended release 20 meq PO DAILY 90 Days Qty: 90 2RF rivaroxaban 15 mg tablet 15 mg PO QPMWITHMEAL 90 Days Qty: 90 2RF tamsulosin 0.4 mg capsule 0.8 mg PO HS 90 Days Qty: 180 3RF insulin lispro 100 unit/mL insulin pen 25 unit SQ AC 60 Days Qty: 15 2RF budesonide 90 mcg/actuation aerosol powdr breath activated 1 inh inhalation BID 30 Days Qty: 1 4RF topiramate [Topamax] 25 mg tablet 25 mg PO DAILY 90 Days Qty: 90 3RF Rx Instructions: Takes with 50 mg tablet for a total of 75 mg daily aripiprazole 5 mg tablet 5 mg PO DAILY Qty: 90 1RF diazepam 5 mg tablet 5 mg PO TID 90 Days Qty: 270 2RF aspirin 81 mg tablet,chewable 81 mg PO DAILY albuterol sulfate [Ventolin HFA] 90 mcg/actuation HFA aerosol inhaler 2 inh INHALATION Q4HP PRN (Reason: SOA) Patient Comments: INHALE 2 PUFFS BY MOUTH EVERY 4 TO 6 HOURS NEEDED FOR SHORTNESS OF BREATH OR WHEEZING insulin glargine [Basaglar KwikPen U-100 Insulin] 100 unit/mL (3 mL) insulin pen 80 unit SQ DAILY Patient Comments: ADMINISTER 70 UNITS UNDER THE SKIN EVERY MORNING levothyroxine 175 mcg tablet 175 mcg PO DAILYDM Rx Instructions: TAKE ONE TABLET BY MOUTH EVERY DAY pantoprazole 40 mg tablet,delayed release (DR/EC) 40 mg PO DAILY metoprolol succinate 25 mg tablet extended release 24 hr 25 mg PO DAILY Rx Instructions: TAKE ONE TABLET BY MOUTH EVERY DAY FOR high blood pressure escitalopram oxalate 10 mg tablet 10 mg PO DAILY Rx Instructions: TAKE 1 TABLET BY MOUTH DAILY FOR DEPRESSION pregabalin 100 mg capsule 100 mg PO TID furosemide 40 mg tablet 40 mg PO DAILY oxycodone 10 mg tablet 10 mg PO Q6HP PRN (Reason: chronic pain) Discontinued spironolactone 25 mg tablet 25 mg PO DAILY Rx Instructions: TAKE 1 TABLET BY MOUTH TWICE DAILY Problem Reconciliation Problems Reviewed?: Yes Patient Discharge Instructions ACTIVITY: Continue current activity DIET: continue same diet Patient Instructions: DI for Urinary Tract Infection (UTI), DI for Hyponatremia, Catheter-Associated Urinary Tract Infection Providers Primary Care Provider: Provider,Referral Admit Provider: Mackenzie Randhawa Attending Provider: Mackenzie Randhawa
--- NOTE | 2023-10-25 13:22 | PC.NURSE ---
Spoke with daughter, JO. SHe stated that she usually picks pt up from hospital when DC, but will not be able to get him until after 8 pm tonight.
[2023-10-25 16:00] VITALS: BP 90/62; PULSE 76; RESP 18; TEMP 36.4; O2SAT 93
[2023-10-25 16:59] LABS: POC Glucose,Bedside 129 (70-110)
[2023-10-25] MEDS: RIVAROXABAN 15MG TABLET 15 MG PO (18:17)
--- NOTE | 2023-10-26 14:32 | SW/DCPLANNER ---
Per Yamile sullivan/ [facility] this patient is currently established w/ services. Updated patient information/order to resume services have been faxed to [facility].
--- NOTE | 2023-10-30 15:00 | CARE MANAGER ---
Contacted patient related to hospital discharge. He states he is doing better and has finished his antibiotic. He is aware of follow up appointment and denies any questions. ANGELLA Barney
== END 2023-10-25 20:00 | disposition home or self-care (01) | DRG 699 ==
LOC: ER 10-20 02:38 → 2ND 10-20 02:56
PROVIDERS: Nurse Practitioner Family; Admitting Provider Internal Medicine; Emergency Provider Emergency Medicine; Visit Provider Internal Medicine
DX: T83.511A Infection and inflammatory reaction due to indwelling urethral catheter, initial encounter (principal); E87.1 Hypo-osmolality and hyponatremia; E66.9 Obesity, unspecified; Z68.30 Body mass index [BMI] 30.0-30.9, adult; J44.9 Chronic obstructive pulmonary disease, unspecified; R33.9 Retention of urine, unspecified; B96.20 Unspecified Escherichia coli [E. coli] as the cause of diseases classified elsewhere; K59.01 Slow transit constipation; Z79.4 Long term (current) use of insulin; G89.29 Other chronic pain; Z79.85 Long-term (current) use of injectable non-insulin antidiabetic drugs; E11.22 Type 2 diabetes mellitus with diabetic chronic kidney disease; N18.2 Chronic kidney disease, stage 2 (mild); N30.90 Cystitis, unspecified without hematuria; E11.65 Type 2 diabetes mellitus with hyperglycemia
CPT/HCPCS: 36415; 71045; 74018; 74177; 80048; 80053; 81001; 82803; 82962; 83036; 83605; 83690; 83735; 83930; 83935; 84295; 84484; 84540; 85025; 87040; 87086; 87088; 87186; 93005; 94640; 99291; J1335; J2185; Q9967

== ENCOUNTER 2023-11-22 09:37 | Outpatient (CLI) | payer MEDICARE, OTHER, SELFPAY | END 2023-11-22 23:59 | disposition home or self-care (01) | LOC: LAB.DROPOF 09:37 | PROVIDERS: PCP Internal Medicine; Visit Provider Internal Medicine | DX: R30.0 Dysuria (principal); B96.29 Other Escherichia coli [E. coli] as the cause of diseases classified elsewhere | CPT/HCPCS: 87086; 87088; 87186 ==

== ENCOUNTER 2023-11-23 02:03 | Observation (INO) | payer MEDICARE, OTHER, SELFPAY ==
[2023-11-23] VITALS (12 sets, daily range): BP systolic 109–138; BP diastolic 66–76; PULSE 68–104; RESP 16–20; TEMP 36.6–37.9; O2SAT 94–99; BMI 31.5; BMI 29.6
--- NOTE | 2023-11-23 02:12 | ECG_ITS ---
APPROVED REPORT Exam: Resting ECG HR:101 bpm ECG Measurements Heart Rate 101 AXES CO 159 P 6 QRSd 89 QRS -31 QT 326 T 16 QTc 384 Conclusion SINUS TACHYCARDIA LEFT AXIS DEVIATION [QRS AXIS < -30] MODERATE VOLTAGE CRITERIA FOR LVH, CONSIDER NORMAL VARIANT [MEETS CRITERIA IN ONE OF: R(aVL), S(V1), R(V5), R(V5/V6)+S(V1)] POSSIBLE ANTERIOR MYOCARDIAL INFARCTION , OF INDETERMINATE AGE [30 ms Q WAVE IN V3/V4, OR R < 0.2 mV IN V4] ABNORMAL ECG UNCONFIRMED REPORT Electronically signed by : JAYDEN CASEY, 11/25/2023 06:20:13
--- NOTE | 2023-11-23 02:15 | CT_ITS ---
PROCEDURE INFORMATION: Exam: CTA Chest With Contrast Exam date and time: 11/23/2023 3:01 AM Age: 68 years old Clinical indication: Pain; Chest pressure; Additional info: SOA chest pain TECHNIQUE: Imaging protocol: Computed tomographic angiography of the chest with contrast. Exam focused on the arteries. 3D rendering (Not supervised by radiologist): MIP and/or 3D reconstructed images were created by the technologist. Radiation optimization: All CT scans at this facility use at least one of these dose optimization techniques: automated exposure control; mA and/or kV adjustment per patient size (includes targeted exams where dose is matched to clinical indication); or iterative reconstruction. Contrast material: ISOVUE; Contrast volume: 70 ml; Contrast route: INTRAVENOUS (IV); COMPARISON: CT ANGIO CHEST PE PROTOCOL 04/12/2023 1:11 AM FINDINGS: Pulmonary arteries: There is suboptimal opacification of the pulmonary arteries but no obvious pulmonary emboli are noted. Aorta: Unremarkable. No aortic aneurysm. No aortic dissection. Thyroid: There is diffuse enlargement of the left thyroid gland which extends below the sternal notch into the upper mediastinum to the level of the ascending aorta overall however this is not significantly changed from the prior study of 04/12/2023. Lungs: There is a 9 mm nodule in the left lower lobe, this may have been present earlier but was obscured by overlying airspace disease. Pleural spaces: Unremarkable. No pneumothorax. No pleural effusion. Heart: Unremarkable. No cardiomegaly. No pericardial effusion. Lymph nodes: Unremarkable. No enlarged lymph nodes. Diaphragm: Elevation of the right hemidiaphragm is noted. Bones/joints: There is diffuse degenerative changes of the thoracic spine with multiple osteophytes and disc height loss. Soft tissues: Unremarkable. IMPRESSION: 1. No evidence of pulmonary embolism. 2. Mild diffuse ground-glass opacities seen in both lungs is can be seen with pulmonary edema and volume overload. 3. 9 mm left lower lobe pulmonary nodule.For both low risk and high risk patients, consider CT Chest at 3 months, PET/CT, or biopsy. (Reference: Nolberto) 4. Diffuse left thyroid enlargement unchanged from prior study. REFERENCES: Nolberto Godinez et al. Guidelines for Management of Incidental Pulmonary Nodules Detected on CT Images: From the Fleischner Society 2017. Radiology. 2017;284(1):228-243.
[2023-11-23 02:21] LABS: Basophils # 0.1 K/mm3 (0-0.2); Eosinophils # 0.1 K/mm3 (0.0-0.4); Eosinophils % 0.5 % (0.1-12.0); Hematocrit 36.8 % (42.0-52.0); Hemoglobin 11.7 g/dL (14.1-18.0); Lymphocytes # 3.4 K/mm3 (0.7-4.5); Mean Corpuscular HGB Conc 31.8 g/dL (31.8-35.4); Mean Corpuscular Hemoglobin 26.2 pg (27.0-31.2); Mean Corpuscular Volume 82.4 fl (80-94); Monocytes % 8.6 % (1.7-9.3); Neutrophils # 6.7 K/mm3 (1.8-7.8); Neutrophils % 59.9 % (37.0-80.0); Platelet Count 290 K/mm3 (142-424); Red Blood Count 4.46 M/mm3 (4.60-6.20); Red Cell Distribution Width 16.5 % (11.5-17.5); White Blood Count 11.2 K/mm3 (4.8-10.8)
[2023-11-23 02:26] LABS: Chloride 92 mmol/L (98-107); Potassium 4.3 mmoL/L (3.5-5.1); Sodium 130 mmol/L (136-145)
[2023-11-23 02:29] LABS: Alanine Aminotransferase 27 U/L (12-78); Albumin Level 4.3 g/dl (3.5-5.0); Albumin/Globulin Ratio 1.2 (1.1-1.8); Alkaline Phosphatase 109 U/L (38-126); Anion Gap 15.3 mEq/L (5-15); Aspartate Amino Transferase 33 U/L (17-59); Bilirubin,Total 0.3 mg/dl (0.2-1.3); Blood Urea Nitrogen 19 mg/dl (9-20); Carbon Dioxide 27 mmol/L (22.0-30.0); Creatinine Clearance Estimated 79 mL/min (50-200); Estimated Glomerular Filt Rate 55 ml/min (>60); GFR (African American) 67 ML/MIN (>60); Globulin 3.5 g/dL (1.3-3.2); Total Protein,Serum 7.8 g/dl (6.3-8.2)
[2023-11-23 02:30] LABS: Calcium 9.2 mg/dl (8.4-10.2); Glucose 221 mg/dl (74-100)
--- NOTE | 2023-11-23 02:35 | XR_ITS ---
PROCEDURE INFORMATION: Exam: XR Chest Exam date and time: 11/23/2023 2:42 AM Age: 68 years old Clinical indication: Cough and shortness of breath; Additional info: SOA cough TECHNIQUE: Imaging protocol: Radiologic exam of the chest. Views: 1 view. COMPARISON: CR XR CHEST PORTABLE 10/19/2023 11:29 PM FINDINGS: Lungs: Unremarkable. No consolidation. Pleural spaces: Unremarkable. No pleural effusion. No pneumothorax. Heart/Mediastinum: Unremarkable. No cardiomegaly. Bones/joints: Unremarkable. IMPRESSION: No acute findings.
--- NOTE | 2023-11-23 02:36 | ED_ITS ---
Discharge Plan Disposition Patient Disposition: Admitted Prescriptions Prescriptions: No Action Ozempic 2 mg/dose (8 mg/3 mL) pen injector 2 mg SQ WEEKLY allopurinol 300 mg tablet 300 mg PO DAILY 90 Days Qty: 90 3RF atorvastatin 40 mg tablet 40 mg PO HS 90 Days Qty: 90 2RF isosorbide mononitrate 60 mg tablet extended release 24 hr 60 mg PO DAILY 90 Days Qty: 90 2RF montelukast 10 mg tablet 10 mg PO DAILY 90 Days Qty: 90 2RF nitroglycerin 0.4 mg tablet, sublingual 0.4 mg SUBLINGUAL Q5MINP PRN (Reason: chest pain) Qty: 90 0RF oxybutynin chloride 15 mg tablet extended release 24hr 15 mg PO DAILY 90 Days Qty: 90 2RF potassium chloride 20 mEq tablet extended release 20 meq PO DAILY 90 Days Qty: 90 2RF rivaroxaban 15 mg tablet 15 mg PO QPMWITHMEAL 90 Days Qty: 90 2RF tamsulosin 0.4 mg capsule 0.8 mg PO HS 90 Days Qty: 180 3RF insulin lispro 100 unit/mL insulin pen 25 unit SQ AC 60 Days Qty: 15 2RF budesonide 90 mcg/actuation aerosol powdr breath activated 1 inh inhalation BID 30 Days Qty: 1 4RF topiramate [Topamax] 25 mg tablet 25 mg PO DAILY 90 Days Qty: 90 3RF Rx Instructions: Takes with 50 mg tablet for a total of 75 mg daily aripiprazole 5 mg tablet 5 mg PO DAILY Qty: 90 1RF diazepam 5 mg tablet 5 mg PO TID 90 Days Qty: 270 2RF furosemide 40 mg tablet 40 mg PO DAILY Qty: 90 4RF oxycodone 10 mg tablet 10 mg PO Q6HP PRN (Reason: chronic pain) Qty: 120 0RF nystatin 100,000 unit/gram powder 1 applic topical BID Qty: 60 2RF ranolazine 500 mg tablet extended release 12 hr 500 mg PO Q12H Qty: 180 1RF Rx Instructions: do not break, crush, or chew tablet(s) trazodone 100 mg tablet 100 mg PO HS Qty: 30 0RF sulfamethoxazole-trimethoprim [Bactrim DS] 800-160 mg tablet 1 tab PO BID 14 Days Qty: 28 0RF Rx Instructions: start morning of 10/26/23 aspirin 81 mg tablet,chewable 81 mg PO DAILY albuterol sulfate [Ventolin HFA] 90 mcg/actuation HFA aerosol inhaler 2 inh INHALATION Q4HP PRN (Reason: SOA) Patient Comments: INHALE 2 PUFFS BY MOUTH EVERY 4 TO 6 HOURS NEEDED FOR SHORTNESS OF BREATH OR WHEEZING insulin glargine [Basaglar KwikPen U-100 Insulin] 100 unit/mL (3 mL) insulin pen 80 unit SQ DAILY Patient Comments: ADMINISTER 70 UNITS UNDER THE SKIN EVERY MORNING levothyroxine 175 mcg tablet 175 mcg PO DAILYDM Rx Instructions: TAKE ONE TABLET BY MOUTH EVERY DAY pantoprazole 40 mg tablet,delayed release (DR/EC) 40 mg PO DAILY metoprolol succinate 25 mg tablet extended release 24 hr 25 mg PO DAILY Rx Instructions: TAKE ONE TABLET BY MOUTH EVERY DAY FOR high blood pressure escitalopram oxalate 10 mg tablet 10 mg PO DAILY Rx Instructions: TAKE 1 TABLET BY MOUTH DAILY FOR DEPRESSION pregabalin 100 mg capsule 100 mg PO TID sennosides [Senna Laxative] 8.6 mg Tablet 8.6 mg PO BID 30 Days Qty: 60 0RF Referrals Follow up/Referrals: Provider,Referral, MD [Referring] - See instructions Clinical Impressions Clinical Impression: Chest pain, Catheter-associated urinary tract infection, Kidney dysfunction Discharge ED Provider: Harpreet Felix General Chief Complaint: Chest Pain Stated Complaint: Chest Pain x4 days Time Seen by Provider: 11/23/23 02:10 Mode of Arrival: EMS Source of Information: Patient and EMS Limitations: No Limitations Description of Symptoms (Recalled from ER Triage Doc. by RN): 68 M presents via EMS from home with c/o sharp/shooting chest pain over the last 4 days. Patient reports a cardiac history. He took 3 nitro at home, but had no relief. NAD, VSS. EKG was negative for acute STEMI via EMS monitor. Patient arrives with a latham catheter in place. EMS placed 20g Left Hand. 2L/NC at home History of Present Illness HPI narrative: 68-year-old male with a history of hypertension, diabetes, CKD, chronic indwelling Latham presents to the ER for concerns of chest pain over the last 4 days. Patient reports he does have a cardiac history and took 3 nitro at home but has not had any change in his symptoms. Patient states he has been having increased cough and shortness of breath though he is on his home 2 L nasal cannula saturating 96%. Patient states he is having a nonproductive cough. He denies any exposure to known sick contacts. EMS report there EKG was negative for STEMI. Related Data Home Medications Medication Instructions Recorded Confirmed aspirin 81 mg chewable tablet 81 mg PO DAILY Heart Health 03/29/23 10/20/23 albuterol sulfate 90 mcg/actuation 2 inh inhalation Q4HP PRN SOA 05/12/23 10/20/23 aerosol inhaler (Ventolin HFA) insulin glargine 100 unit/mL (3 80 unit SQ DAILY Diabetes 05/12/23 10/20/23 mL) subcutaneous pen (Basaglar KwikPen U-100 Insulin) semaglutide 2 mg/dose (8 mg/3 mL) 2 mg SQ WEEKLY 06/14/23 10/20/23 subcutaneous pen injector (Ozempic) escitalopram oxalate 10 mg tablet 10 mg PO DAILY 10/20/23 10/20/23 levothyroxine 175 mcg tablet 175 mcg PO DAILYDM 10/20/23 10/20/23 metoprolol succinate 25 mg 25 mg PO DAILY 10/20/23 10/20/23 tablet,extended release 24 hr pantoprazole 40 mg tablet,delayed 40 mg PO DAILY 10/20/23 10/20/23 release pregabalin 100 mg capsule 100 mg PO TID 10/20/23 10/20/23 Previous Rx's Medication Instructions Recorded allopurinol 300 mg tablet 300 mg PO DAILY Gout 90 days #90 04/17/23 tabs atorvastatin 40 mg tablet 40 mg PO HS Cholesterol 90 days 04/17/23 #90 tabs budesonide 90 mcg/actuation breath 1 inh inhalation BID 30 days #1 ea 04/17/23 activated powder inhaler insulin lispro 100 unit/mL 25 unit (0.25 mL) SQ AC Diabetes 04/17/23 subcutaneous pen 60 days #15 mL isosorbide mononitrate 60 mg 60 mg PO DAILY High Blood Pressure 04/17/23 tablet,extended release 24 hr 90 days #90 tabs montelukast 10 mg tablet 10 mg PO DAILY allergies 90 days 04/17/23 #90 tabs nitroglycerin 0.4 mg sublingual 0.4 mg sublingual Q5MINP PRN chest 04/17/23 tablet pain #90 tabs oxybutynin chloride 15 mg 15 mg PO DAILY Bladder 90 days #90 04/17/23 tablet,extended release 24 hr tabs potassium chloride 20 mEq 20 meq PO DAILY Supplement 90 days 04/17/23 tablet,extended release #90 tabs rivaroxaban 15 mg tablet 15 mg PO QPMWITHMEAL Blood 04/17/23 thinner/AFIB 90 days #90 tabs tamsulosin 0.4 mg capsule 0.8 mg (2 x 0.4 mg) PO HS Prostate 04/17/23 90 days #180 caps topiramate 25 mg tablet (Topamax) 25 mg PO DAILY Migraines 90 days 06/05/23 #90 tabs aripiprazole 5 mg tablet 5 mg PO DAILY Mood #90 tabs 08/20/23 diazepam 5 mg tablet 5 mg PO TID Tremors 90 days #270 09/04/23 tabs sennosides 8.6 mg tablet (Senna 8.6 mg PO BID 30 days #60 tabs 10/25/23 Laxative) furosemide 40 mg tablet 40 mg PO DAILY Fluid #90 tabs 10/31/23 oxycodone 10 mg tablet 10 mg PO Q6HP PRN chronic pain 11/05/23 #120 tabs nystatin 100,000 unit/gram topical 1 applic topical BID #60 grams 11/09/23 powder ranolazine 500 mg tablet,extended 500 mg PO Q12H #180 tabs 11/13/23 release,12 hr trazodone 100 mg tablet 100 mg PO HS insomnia #30 tabs 11/14/23 sulfamethoxazole 800 1 tab PO BID 14 days #28 tabs 11/22/23 mg-trimethoprim 160 mg tablet (Bactrim DS) Allergies Allergy/AdvReac Type Severity Reaction Status Date / Time gabapentin [From Neurontin] Allergy Intermediate Rash Verified 09/10/23 10:04 [facility] Disclaimer: The information contained in this section may have been updated after the patient was seen, as this information can be updated by other users. Medical History Acute exacerbation of chronic obstructive pulmonary disease Acute urinary retention Chronic pain At risk for osteoporosis Diabetes mellitus type 2 in obese At risk for polypharmacy Pneumonia Healthcare-associated pneumonia Chronic respiratory failure with hypoxia Chronic indwelling Latham catheter Peritracheal mass Acute urinary retention Cauda equina syndrome Paralysis, progressive Encounter for immunization Atypical angina Chest pain Abnormal EKG Edema Leg pain, bilateral Tachycardia SOB (shortness of breath) Chronic systolic heart failure CKD (chronic kidney disease) stage 2, GFR 60-89 ml/min Diabetes mellitus COPD (chronic obstructive pulmonary disease) HLD (hyperlipidemia) HTN (hypertension) Surgical History H/O repair of rotator cuff Family History Other Diabetes Hypertension Stroke Social History (Updated 10/20/23 @ 03:09 by Lashonda Monge RN) Smoking Status: Former smoker tobacco type: cigarettes alcohol intake: never substance use type: denies use current occupational status: unemployed Travel in the last 8 weeks: None household members: spouse housing: house caffeine: Yes ROS Obtained: Yes All systems reviewed & no additional complaints except as documented Constitutional Constitutional: Denies chills, Denies fever(s), Denies headache(s) and Denies weakness Eyes Eyes: Denies change in vision ENT Ears, Nose, Mouth, and Throat: Denies dizziness, Denies headache(s), Denies nasal congestion and Denies sore throat Cardiovascular Cardiovascular: Reports chest pain, Reports dyspnea and Denies leg edema Respiratory Respiratory: Reports cough and Reports dyspnea Gastrointestinal Gastrointestingal: Denies constipation, diarrhea, nausea or vomiting Genitourinary Male Genitourinary: Denies difficulty urinating Musculoskeletal Musculoskeletal: Denies arthralgias, Denies myalgias, Denies numbness and Denies tingling Integumentary/Breasts Skin/Breast: Denies change in pigmentation Neurologic Neurologic: Denies dizziness, Denies headache(s), Denies numbness, Denies tingling and Denies weakness Physical Exam General General appearance: alert and in no apparent distress Head Head exam: atraumatic and normocephalic Eye Eye exam: Present PERRL and EOMI ENT ENT exam: Present mucous membranes moist Neck Neck exam: Present normal inspection and full ROM Chest Chest inspection: Present symmetric chest wall rise Respiratory Respiratory exam: Present normal lung sounds bilaterally; Absent respiratory distress, wheezes or stridor Cardiovascular Cardiovascular exam: Present normal rhythm and tachycardia Abdominal Exam Abdominal exam: Present soft; Absent distention, tenderness, guarding or rebound exam: Present other (Chronic indwelling Latham draining clear yellow urine) Extremities Exam Extremities exam: Present full ROM Neurological Exam Neurological exam: Present alert, oriented X3 and other (At neurologic baseline) Psychiatric Psychiatric exam: Present normal affect and normal mood Skin Skin exam: Present warm and dry HEART Score HEART Score HEART Score assessment performed?: Yes History (anamnesis): Slightly suspicious ECG: Non-specific disturbance Age: >65 years Risk factors: 3 or more risk factors Troponin: </= normal limit HEART Score: 5 Critical Care Critical Care Time Critical Care Time: No Medical Decision Making [place] Inquiry Pt receiving controlled substance: No Vital Signs Vital Signs: 11/23/23 02:03 11/23/23 02:06 11/23/23 02:30 Temperature 100.3 F H Temperature Source Oral Pulse Rate 103 H 98 H Pulse Rate [Left] 104 H Respiratory Rate 20 Blood Pressure 120/76 124/71 Blood Pressure [Right Arm] 120/76 Blood Pressure Mean [Right Arm] 90 Blood Pressure Source [Right Arm] Automatic Cuff Blood Pressure Position [Right Arm] Sitting 02 Sat by Pulse Oximetry 96 96 94 L Oxygen Delivery Method Nasal Cannula Oxygen Flow Rate (LPM) 2 11/23/23 03:16 11/23/23 03:26 11/23/23 03:26 Temperature Temperature Source Pulse Rate 103 H 98 H 97 H Pulse Rate [Left] Respiratory Rate Blood Pressure 112/66 Blood Pressure [Right Arm] Blood Pressure Mean [Right Arm] Blood Pressure Source [Right Arm] Blood Pressure Position [Right Arm] 02 Sat by Pulse Oximetry 96 Oxygen Delivery Method Oxygen Flow Rate (LPM) Lab Data Labs: Lab Results 11/23/23 01:42: WBC 11.2 H, RBC 4.46 L, Hgb 11.7 L, Hct 36.8 L, MCV 82.4, MCH 26.2 L, MCHC 31.8, RDW 16.5, Plt Count 290, MPV 9.0, Neut % (Auto) 59.9, Lymph % (Auto) 30.0, [place] % (Auto) 8.6, Eos % (Auto) 0.5, Baso % (Auto) 1.0, Neut # (Auto) 6.7, Lymph # (Auto) 3.4, [place] # (Auto) 1.0, Eos # (Auto) 0.1, Baso # (Auto) 0.1, Sodium 130 L, Potassium 4.3, Chloride 92 L, Carbon Dioxide 27, Anion Gap 15.3 H, BUN 19, Creatinine 1.30 H, Estimated Creat Clear 79, Estimated GFR 55 L, Est GFR ( Amer) 67, Glucose 221 H, Calcium 9.2, Total Bilirubin 0.3, AST 33, ALT 27, Alkaline Phosphatase 109, Troponin I < 0.01, Total Protein 7.8, Albumin 4.3, Globulin 3.5 H, Albumin/Globulin Ratio 1.2 11/23/23 02:11: VBG pH 7.43 H, VBG pCO2 36.1, VBG pO2 130.7 H, VBG HCO3 23.3, VBG Total CO2 24.4, VBG O2 Saturation 98.5 H, VBG Base Excess -1.0, VBG Lactic Acid 1.8 11/23/23 03:44: Urine Color Yellow, Urine Appearance Cloudy, Urine pH 6.0, Ur Specific [place] 1.015, Urine Protein Trace, Urine Glucose (UA) Negative, Urine Ketones Negative, Urine Blood 2+, Urine Nitrate Negative, Urine Bilirubin Negative, Urine Urobilinogen 0.2, Ur Leukocyte Esterase 2+ A, Urine RBC 5-10, Urine WBC 10-20, Ur Squamous Epith Cells Occasional, Urine Bacteria 1+ 11/23/23 01:42 11/23/23 01:42 Response Orders (Tests/Meds): ED MEDICATIONS Discontinued Medications Generic Name Dose Route Start Last Admin Trade Name Freq PRN Reason Stop Dose Admin Acetaminophen 1,000 mg 11/23/23 02:37 11/23/23 02:39 Acetaminophen 1,000mg/100ml Vial IV 11/23/23 02:38 1,000 mg ONCE ONE Administration Albuterol/Ipratropium 3 ml 11/23/23 03:03 11/23/23 03:25 Ipratropium/Albuterol 3 Ml Neb IH 11/23/23 03:04 3 ml ONCE ONE Administration Lactated Ringer's 1,000 mls @ 999 mls/hr 11/23/23 02:11 11/23/23 02:39 Lactated Ringer's 1000 Ml Bag IV 11/23/23 03:11 999 mls/hr .Q1H1M ONE Administration Meropenem 1 gm/ Sodium 100 mls @ 100 mls/hr 11/23/23 04:15 Chloride IV 11/23/23 04:16 ONCE ONE Iopamidol 70 ml 11/23/23 03:19 11/23/23 03:20 Iopamidol-370 (76%);100ml Bottle IV 11/23/23 03:20 70 ml ONCE ONE Administration Sodium Chloride 50 ml 11/23/23 03:19 11/23/23 03:20 0.9 % Sodium Chloride 50 Ml Vial IV 11/23/23 03:20 50 ml ONCE ONE Administration Sodium Chloride 10 ml 11/23/23 03:19 11/23/23 03:20 Sodium Chloride 0.9% 10ml Syr (Rad Only) IV 11/23/23 03:20 10 ml ONCE ONE Administration ORDERS Category Date Time Status CT angio chest PE protocol Stat Cat Scan 11/23/23 02:15 Taken CXR --portable [XR chest portable] Stat Exams 11/23/23 02:35 Taken CBC w/Auto Diff [Complete Blood Count Auto Diff] Stat Lab 11/23/23 01:42 Completed CMP [Comprehensive Metabolic Panel] Stat Lab 11/23/23 01:42 Completed Trop I [Troponin I] Stat Lab 11/23/23 01:42 Completed Troponin I Q3H Lab 11/23/23 05:15 Ordered Troponin I Q3H Lab 11/23/23 08:15 Ordered Urinalysis and Microscopic Stat Lab 11/23/23 03:44 Completed Urine Culture Stat Micro 11/23/23 03:44 Received VBG [Venous Blood Gas] Stat RT 11/23/23 02:11 Completed MDM Narrative Medical Decision Narrative: In summary, this 68-year-old male presents to the emergency department today with chest pain, shortness of breath. On initial evaluation patient is tachycardic, borderline febrile, saturating well on his home 2 L nasal cannula, cardiopulmonary exam is otherwise reassuring, abdominal exam benign. Differential diagnosis includes but is not limited to ACS, PE, pneumonia, viral syndrome, also considered possibility of UTI. I considered sepsis, patient is borderline on SIRS criteria. WBC will determine whether or not I aggressively pursue antibiotics at this time.. Based on these concerns, I ordered cardiac workup, CTA PE, urine studies, basic labs. ECG personally interpreted demonstrates sinus tachycardia, rate 101, left axis deviation, TX normal at 159, QTc normal at 384, no STEMI. Patient received IV fluids for treatment. Labs personally reviewed demonstrate only trace leukocytosis with WBC of 11.2, mild anemia, hemoglobin 11.7, platelets normal at 290, VBG pH 7.43, pCO2 normal at 36.1, lactic acid on VBG 1.8, mild hyponatremia with sodium 138, potassium normal at 4.3, chloride 92, slightly low. Patient has had an acute change in his creatinine now 1.3, previously 0.9 less than 1 month ago.. XR personally interpreted demonstrates haziness of the left cardiac border concerning for possible infiltrate, no pleural effusion, no pneumothorax, see radiology read. CT imaging personally interpreted demonstrate no large PE, patient does have increased opacification of the left lower lung compared to the right, consistent with the slightly obscured heart border chest x-ray, possibly pneumonia vs chronic interstitial changes. Radiology read pending. Urinalysis resulted with findings concerning for infection, patient states he sent in a urine sample to his primary today and they called in an antibiotic for him, so this supports my suspicion of UTI with the findings of 10-20 WBCs on his UA as well as 1+ bacteria despite being nitrate negative. I reviewed prior microbiology cultures which demonstrate patient has a history of antimicrobial resistant infections. Given concern for possible pneumonia as well as urinary tract infection, meropenem was selected for administration. Patient has findings of kidney dysfunction in the setting of UTI as well as multiple other chronic comorbidities that make him at risk for further worsening of condition. I believe he requires admission for his current condition. I discussed this case with the hospitalist including lab findings, chest x-ray and chest CT findings, and urine results. Patient has been accepted for admission.
[2023-11-23] MEDS: ACETAMINOPHEN 1,000MG/100ML VIAL 1000 MG IV (02:39)
[2023-11-23] MEDS: LACTATED RINGERS 1000ML 1,000 ML 999 ML IV (02:39)
--- NOTE | 2023-11-23 02:52 | PC.NURSE ---
pt to RAD at this time
[2023-11-23 02:59] LABS: Troponin I < 0.01 ng/ml (0.00-0.034)
[2023-11-23 03:01] LABS: Lactate Venous 1.8 mmol/L (0.4-2.0); VBG HCO3 23.3 mmol/L (23-30); VBG Oxygen Saturation 98.5 % (50-70); VBG PCO2 36.1 mmol/L (35-51); VBG PH 7.43 mmol/L (7.31-7.41); VBG PO2 130.7 mmol/L (28-40); VBG Total CO2 24.4 mmol/L (23-27)
[2023-11-23] MEDS: SODIUM CHLORIDE 0.9% 10ML SYR (RAD ONLY) 10 ML IV (03:20)
[2023-11-23] MEDS: IOPAMIDOL-370 (76%);100ML BOTTLE 70 ML IV (03:20)
[2023-11-23] MEDS: 0.9 % SODIUM CHLORIDE 50 ML VIAL IV (03:20)
[2023-11-23] MEDS: IPRATROPIUM/ALBUTEROL 3 ML NEB IH (03:25)
[2023-11-23 03:48] LABS: Microscopic, Urine URINE MICROSCOPIC (MICROSCOPIC)
[2023-11-23 03:50] LABS: Bilirubin,Urine Negative (Negative); Blood, Urine 2+ (Negative); Color,Urine YELLOW (Yellow); Glucose,Urine (UA) Negative (Negative); Ketones,Urine Negative (Negative); Leukocyte Esterase,Urine 2+ (Negative); Nitrate,Urine Negative (Negative); Protein,Urine TRACE (Negative); Specific Gravity, Urine 1.015 (1.005-1.030); Urobilinogen,Urine 0.2 EU/dl (0.2)
[2023-11-23 03:51] LABS: Appearance,Urine Cloudy (Clear)
[2023-11-23 04:04] LABS: Bacteria,Urine 1+ /lpf; Squamous Epithelial Cell,Urine Occasional #/hpf (0-5)
--- NOTE | 2023-11-23 04:30 | P.HP_ITS ---
History of Present Illness *Admission Date: 11/23/23 *Reason for visit:: CP *History of present illness: This is a 68-year-old male with history of prior cauda equina syndrome and chronic urinary retention with chronic indwelling Latham, recent urethral repair after a laceration from Latham's, COPD, hypertension hyperlipidemia, diabetes presents with concerns of chest pain over the last 4 days. Patient took 3 nitro at home but has not had any change in his symptoms, therefore he called EMS. Patient states he has been having increased cough and shortness of breath though he is on his home 2 L nasal cannula saturating 96%. Patient states he is having a nonproductive cough. He denies any exposure to known sick contacts. EMS report there EKG was negative for STEMI. Admitted for further management. [facility] Disclaimer: The information contained in this section may have been updated after the patient was seen, as this information can be updated by other users. Medical History Acute exacerbation of chronic obstructive pulmonary disease Acute urinary retention Chronic pain At risk for osteoporosis Diabetes mellitus type 2 in obese At risk for polypharmacy Pneumonia Healthcare-associated pneumonia Chronic respiratory failure with hypoxia Chronic indwelling Latham catheter Peritracheal mass Acute urinary retention Cauda equina syndrome Paralysis, progressive Encounter for immunization Atypical angina Chest pain Abnormal EKG Edema Leg pain, bilateral Tachycardia SOB (shortness of breath) Chronic systolic heart failure CKD (chronic kidney disease) stage 2, GFR 60-89 ml/min Diabetes mellitus COPD (chronic obstructive pulmonary disease) HLD (hyperlipidemia) HTN (hypertension) Surgical History H/O repair of rotator cuff Family History Other Diabetes Hypertension Stroke Social History (Updated 11/23/23 @ 05:12 by Lashonda Monge RN) Smoking Status: Former smoker tobacco type: cigarettes alcohol intake: never substance use type: denies use current occupational status: unemployed Travel in the last 8 weeks: None household members: spouse housing: house caffeine: Yes Review of Systems Review of Systems Review of systems:: pertinent systems reviewed and negative unless documented below Constitutional Constitutional: Denies headache(s) and Denies weakness ENT Ears, Nose, Mouth, and Throat: Denies dizziness and Denies headache(s) *Musculoskeletal Musculoskeletal: Denies numbness and Denies tingling *Neurologic Neurologic: Denies dizziness, Denies headache(s), Denies numbness, Denies tingling and Denies weakness Meds Home Medications and Allergies Home Medications Medication Instructions Recorded Confirmed Type aspirin 81 mg chewable tablet 81 mg PO DAILY 03/29/23 11/23/23 History allopurinol 300 mg tablet 300 mg PO DAILY Gout 90 days #90 04/17/23 11/23/23 Rx tabs atorvastatin 40 mg tablet 40 mg PO HS Cholesterol 90 days 04/17/23 11/23/23 Rx #90 tabs budesonide 90 mcg/actuation breath 1 inh inhalation BID 30 days #1 ea 04/17/23 11/23/23 Rx activated powder inhaler insulin lispro 100 unit/mL 25 unit (0.25 mL) SQ AC Diabetes 04/17/23 11/23/23 Rx subcutaneous pen 60 days #15 mL isosorbide mononitrate 60 mg 60 mg PO DAILY High Blood Pressure 04/17/23 11/23/23 Rx tablet,extended release 24 hr 90 days #90 tabs montelukast 10 mg tablet 10 mg PO DAILY allergies 90 days 04/17/23 11/23/23 Rx #90 tabs nitroglycerin 0.4 mg sublingual 0.4 mg sublingual Q5MINP PRN chest 04/17/23 11/23/23 Rx tablet pain #90 tabs oxybutynin chloride 15 mg 15 mg PO DAILY Bladder 90 days #90 04/17/23 11/23/23 Rx tablet,extended release 24 hr tabs potassium chloride 20 mEq 20 meq PO DAILY Supplement 90 days 04/17/23 11/23/23 Rx tablet,extended release #90 tabs rivaroxaban 15 mg tablet 15 mg PO QPMWITHMEAL Blood 04/17/23 11/23/23 Rx thinner/AFIB 90 days #90 tabs tamsulosin 0.4 mg capsule 0.8 mg (2 x 0.4 mg) PO HS Prostate 04/17/23 11/23/23 Rx 90 days #180 caps albuterol sulfate 90 mcg/actuation 2 inh inhalation Q4HP PRN 05/12/23 11/23/23 History aerosol inhaler (Ventolin HFA) Shortness Of Breath insulin glargine 100 unit/mL (3 80 unit SQ DAILY Diabetes 05/12/23 11/23/23 History mL) subcutaneous pen (Basaglar KwikPen U-100 Insulin) topiramate 25 mg tablet (Topamax) 25 mg PO DAILY Migraines 90 days 06/05/23 11/23/23 Rx #90 tabs semaglutide 2 mg/dose (8 mg/3 mL) 2 mg SQ WEEKLY 06/14/23 11/23/23 History subcutaneous pen injector (Ozempic) aripiprazole 5 mg tablet 5 mg PO DAILY Mood #90 tabs 08/20/23 11/23/23 Rx diazepam 5 mg tablet 5 mg PO TID Tremors 90 days #270 09/04/23 11/23/23 Rx tabs escitalopram oxalate 10 mg tablet 10 mg PO DAILY 10/20/23 11/23/23 History levothyroxine 175 mcg tablet 175 mcg PO DAILYDM 10/20/23 11/23/23 History metoprolol succinate 25 mg 25 mg PO DAILY 10/20/23 11/23/23 History tablet,extended release 24 hr pantoprazole 40 mg tablet,delayed 40 mg PO DAILY 10/20/23 11/23/23 History release pregabalin 100 mg capsule 100 mg PO TID 10/20/23 11/23/23 History sennosides 8.6 mg tablet (Senna 8.6 mg PO BID 30 days #60 tabs 10/25/23 11/23/23 Rx Laxative) furosemide 40 mg tablet 40 mg PO DAILY Fluid #90 tabs 10/31/23 11/23/23 Rx oxycodone 10 mg tablet 10 mg PO Q6HP PRN chronic pain 11/05/23 11/23/23 Rx #120 tabs nystatin 100,000 unit/gram topical 1 applic topical BID #60 grams 11/09/2311/22 Rx powder ranolazine 500 mg tablet,extended 500 mg PO Q12H #180 tabs 11/13/23 11/23/23 Rx release,12 hr trazodone 100 mg tablet 100 mg PO HS insomnia #30 tabs 11/14/23 11/23/23 Rx New Prescriptions to Start Prescriptions: Allergies Allergy/AdvReac Type Severity Reaction Status Date / Time gabapentin [From Neurontin] Allergy Intermediate Rash Verified 09/10/23 10:04 Exam Data for Last 24 hours Vital signs and Labs for Last 24 Hours: Temp Pulse Resp BP Pulse Ox O2 Del Method O2 Flow Rate 100.3 F H 70 20 112/66 96 Nasal Cannula 2 11/23/23 02:03 11/23/23 04:26 11/23/23 02:03 11/23/23 03:16 11/23/23 03:16 11/23/23 02:03 11/23/23 02:03 Laboratory Results - last 24 hr 11/23/23 01:42: WBC 11.2 H, RBC 4.46 L, Hgb 11.7 L, Hct 36.8 L, MCV 82.4, MCH 26.2 L, MCHC 31.8, RDW 16.5, Plt Count 290, MPV 9.0, Neut % (Auto) 59.9, Lymph % (Auto) 30.0, [place] % (Auto) 8.6, Eos % (Auto) 0.5, Baso % (Auto) 1.0, Neut # (Auto) 6.7, Lymph # (Auto) 3.4, [place] # (Auto) 1.0, Eos # (Auto) 0.1, Baso # (Auto) 0.1, Sodium 130 L, Potassium 4.3, Chloride 92 L, Carbon Dioxide 27, Anion Gap 15.3 H, BUN 19, Creatinine 1.30 H, Estimated Creat Clear 79, Estimated GFR 55 L, Est GFR ( Amer) 67, Glucose 221 H, Calcium 9.2, Total Bilirubin 0.3, AST 33, ALT 27, Alkaline Phosphatase 109, Troponin I < 0.01, Total Protein 7.8, Albumin 4.3, Globulin 3.5 H, Albumin/Globulin Ratio 1.2 11/23/23 02:11: VBG pH 7.43 H, VBG pCO2 36.1, VBG pO2 130.7 H, VBG HCO3 23.3, VBG Total CO2 24.4, VBG O2 Saturation 98.5 H, VBG Base Excess -1.0, VBG Lactic Acid 1.8 11/23/23 03:44: Urine Color Yellow, Urine Appearance Cloudy, Urine pH 6.0, Ur Specific [place] 1.015, Urine Protein Trace, Urine Glucose (UA) Negative, Urine Ketones Negative, Urine Blood 2+, Urine Nitrate Negative, Urine Bilirubin Negative, Urine Urobilinogen 0.2, Ur Leukocyte Esterase 2+ A, Urine RBC 5-10, Urine WBC 10-20, Ur Squamous Epith Cells Occasional, Urine Bacteria 1+ I & O for Last 24 hours: Intake & Output 11/20/23 11/21/23 11/22/23 11/23/23 23:59 23:59 23:59 23:59 Weight 99.79 kg *Routine HEENT Exam Head: Present normocephalic and atraumatic Eye: Present EOMI, PERRL and normal accommodation ENT: Present mucous membranes dry *Routine Respiratory Exam Respiratory: Present CTA bilaterally and normal respiratory effort *Routine Cardiovascular Exam Cardiovascular: Present RRR, Normal S1 and tachycardia *Routine Abdominal Exam Abdominal: Present soft, normoactive bowel sounds and tenderness *Routine Rectal Exam Rectal:: deferred *Routine Genitalia Exam Genitalia:: normal male (latham catheter. edematous ) H&P: Result Imaging and Cardiology EKG: Status: image reviewed by me, Preliminary report and final report CT scan - chest: Status: image reviewed by me, Preliminary report and final report Assessment and Plan *Assessment and plan (1) Catheter-associated urinary tract infection: Status: Acute Qualifiers: Encounter type: initial encounter Indwelling urinary catheter type: indwelling urethral catheter Qualified Code(s): T83.511A - Infection and inflammatory reaction due to indwelling urethral catheter, initial encounter; N39.0 - Urinary tract infection, site not specified Category: Medical Code(s): T83.511A - Infection and inflammatory reaction due to indwelling urethral catheter, initial encounter; N39.0 - Urinary tract infection, site not specified (2) Chest pain: Status: Acute Qualifiers: Chest pain type: unspecified Qualified Code(s): R07.9 - Chest pain, unspecified Category: Medical Code(s): R07.9 - Chest pain, unspecified (3) [id number] kidney injury: Status: Acute Qualifiers: Acute renal failure type: unspecified Chronic kidney disease stage: stage 3 (moderate) Chronic kidney disease stage 3 subtype: stage 3a (GFR 45-59) Qualified Code(s): N17.9 - Acute kidney failure, unspecified; N18.31 - Chronic kidney disease, stage 3a Category: Medical Code(s): N17.9 - Acute kidney failure, unspecified; N18.9 - Chronic kidney disease, u nspecified (4) Diabetes mellitus type 2 in obese: Problem Comment: As I mentioned in the past having rigid A1c goals does not seem appropriate in this patient. However according to the patient and his daughter his last A1c which was done outside of our system was 6.5 which is excellent. Will continue with the current therapies. Status: Acute Category: Medical Code(s): E11.69 - Type 2 diabetes mellitus with other specified complication; E66.9 - Obesity, unspecified (5) HTN (hypertension): Problem Comment: Blood pressures have been good here at the clinic. Will continue his current therapy, see below. Status: Acute Qualifiers: Hypertension type: primary hypertension Qualified Code(s): I10 - Essential (primary) hypertension Category: Medical Code(s): I10 - Essential (primary) hypertension Plan 68-year-old male with history of prior cauda equina syndrome and chronic urinary retention with chronic indwelling Latham, recent urethral repair after a laceration from Latham's, COPD, hypertension hyperlipidemia, diabetes presents with presents with concerns of chest pain over the last 4 days. patient took 3 nitroglycerin. on arrival patient chest pain free.. EKG negative. troponin negative. CTA showed ground glass opacity. suspected pulmonary edema. UA suggested UTI which is chronic associated with catheter. ED requested admission for further work up. Agreed for admission. Plan as follow: - Chest pain. resolved UTI/cystitis. Chronic associated with chronic indwelling urinary catheter: suspected pulmonary edema admit patient monitor VS per unit encouraged hydration UA pending Received meropenem in ER, will transition to ertapenem for once daily dosing. Based off previous cultures and sensitivities. tropinin negative. eKG reviewed. no ischemic changes. one time IV 80mg. once. patient is at 40mg BID. last echo showed diastolic dysfunction. monitor for sepsis repeat CBC in the morning. monitor WBC - Diabetes. Uncontrolled repeat this morning sliding scale accucheck before meals Other chronic conditions CAD CHF with preserved ejection fraction Gout Hypothyroidism A-fib on Xarelto Chronic pain on opioid Cardiac enough syndrome with chronic urinary catheter and constipation reviewed and stable Resume all home medications. Patient on Xarelto and metoprolol Trazodone Tamsulosin Bowel regimen Protonix for GI bleed protection Full code Rounded on patient after nurse practitioner. Personally examined and interviewed patient. Agree with exam findings and care plan as documented. Patient has reproducible chest pain on exam in his left upper pectoralis. Responding to diuresis well, atleast 1 L output so far this morning. Stable on baseline oxygen. No nausea or vomiting. Continue current antibiotics. If stable overnight, will plan to discharge tomorrow.
--- NOTE | 2023-11-23 04:42 | PC.NURSE ---
Patient arrived to floor via stretcher from ED at 4:40.
[2023-11-23] MEDS: MEROPENEM 1 GM in 0.9 % SODIUM CHLORIDE 100 ML IV (04:58)
[2023-11-23] MEDS: 0.9 % SODIUM CHLORIDE 1000ML 1,000 ML 50 ML IV (04:58)
[2023-11-23 05:19] LABS: POC Glucose,Bedside 181 (70-110)
[2023-11-23 06:40] LABS: Basophils # 0.1 K/mm3 (0-0.2); Basophils % 0.8 % (0.1-2.0); Eosinophils # 0.1 K/mm3 (0.0-0.4); Eosinophils % 0.8 % (0.1-12.0); Hematocrit 33.5 % (42.0-52.0); Hemoglobin 10.6 g/dL (14.1-18.0); Lymphocytes # 3.1 K/mm3 (0.7-4.5); Mean Corpuscular HGB Conc 31.6 g/dL (31.8-35.4); Mean Corpuscular Hemoglobin 26.4 pg (27.0-31.2); Mean Corpuscular Volume 83.6 fl (80-94); Mean Platelet Volume 9.1 fl (7.4-10.4); Monocytes # 0.9 K/mm3 (0.1-1.0); Monocytes % 8.1 % (1.7-9.3); Neutrophils # 6.5 K/mm3 (1.8-7.8); Neutrophils % 61.2 % (37.0-80.0); Platelet Count 254 K/mm3 (142-424); Red Cell Distribution Width 16.5 % (11.5-17.5); White Blood Count 10.6 K/mm3 (4.8-10.8)
[2023-11-23] MEDS: FUROSEMIDE 100MG/10ML VIAL 80 MG IV (06:57)
[2023-11-23 07:06] LABS: Chloride 90 mmol/L (98-107)
[2023-11-23 07:07] LABS: Potassium 4.2 mmoL/L (3.5-5.1); Sodium 127 mmol/L (136-145)
[2023-11-23 07:09] LABS: Alanine Aminotransferase 20 U/L (12-78); Aspartate Amino Transferase 26 U/L (17-59); Blood Urea Nitrogen 18 mg/dl (9-20); Creatinine Clearance Estimated 74 mL/min (50-200); Estimated Glomerular Filt Rate 55 ml/min (>60); GFR (African American) 67 ML/MIN (>60)
[2023-11-23 07:10] LABS: Albumin Level 3.7 g/dl (3.5-5.0); Albumin/Globulin Ratio 1.3 (1.1-1.8); Alkaline Phosphatase 108 U/L (38-126); Anion Gap 12.2 mEq/L (5-15); Bilirubin,Total 0.2 mg/dl (0.2-1.3); Calcium 8.9 mg/dl (8.4-10.2); Carbon Dioxide 29 mmol/L (22.0-30.0); Globulin 2.8 g/dL (1.3-3.2); Glucose 158 mg/dl (74-100); Magnesium 1.4 mg/dl (1.6-2.3); Total Protein,Serum 6.5 g/dl (6.3-8.2)
[2023-11-23 07:26] LABS: Troponin I < 0.01 ng/ml (0.00-0.034)
--- NOTE | 2023-11-23 07:54 | [facility].PHAINT1 ---
Pharmacy Intervention Comments: MEDICATION RECONCILIATION COMPLETED ON PATIENT USING EXTERNAL FILL HISTORY FROM PHARMACY, CULLEN REPORT, AND DISCHARGE SUMMARY FORM PREVIOUS ADMISSION. -CON HERNANDEZD
[2023-11-23] MEDS: RANOLAZINE 500MG ER TABLET 500 MG PO ×2 (08:47→20:56)
[2023-11-23] MEDS: MAGNESIUM SULFATE IN WATER 2 GM/50 ML PIGGYBACK IV (08:47)
[2023-11-23] MEDS: PREGABALIN 100MG CAPSULE 100 MG PO ×3 (08:47→20:56)
[2023-11-23] MEDS: diazePAM 5MG TABLET 5 MG PO ×3 (08:47→20:56)
[2023-11-23] MEDS: SENNA 8.6MG TABLET 8.6 MG PO ×2 (08:47→20:56)
[2023-11-23] MEDS: TOPIRAMATE 25MG TABLET 25 MG PO (08:47)
[2023-11-23] MEDS: NYSTATIN TOPICAL POWDER 30GM TP ×2 (08:48→20:55)
[2023-11-23] MEDS: ARIPiprazole 10MG TABLET 5 MG PO (08:48)
[2023-11-23] MEDS: ASPIRIN 81MG CHEWABLE TABLET 81 MG PO (08:48)
[2023-11-23] MEDS: ISOSORBIDE MONO 60MG TAB.ER.24H 60 MG PO (08:48)
[2023-11-23] MEDS: LEVOTHYROXINE 175MCG (0.175MG) TAB 175 MCG PO (08:48)
[2023-11-23] MEDS: METOPROLOL SUCCINATE XL 25MG TABLET 25 MG PO (08:48)
[2023-11-23] MEDS: CITALOPRAM 20MG TABLET 20 MG PO (08:48)
[2023-11-23] MEDS: PANTOPRAZOLE 40MG TABLET 40 MG PO (08:48)
[2023-11-23] MEDS: OXYBUTYNIN 5MG TAB 5 MG PO ×3 (08:48→20:56)
[2023-11-23] MEDS: POTASSIUM CHLORIDE 20MEQ TAB 20 MEQ PO (08:49)
[2023-11-23] MEDS: FUROSEMIDE 40MG/4ML VIAL 80 MG IV (08:49)
[2023-11-23] MEDS: INSULIN GLARGINE 100 UNITS/ML 3ML FLEXPEN 80 UNIT SQ (08:54)
[2023-11-23 09:00] LABS: Troponin I < 0.01 ng/ml (0.00-0.034)
--- NOTE | 2023-11-23 10:00 | CARE MANAGER ---
Addendum entered by Liya Alex RN 11/26/23 07:03: Updated info faxed to [facility] Original Note: Spoke with patient at bedside this morning. He stated that he has [facility] and plans to return home and continue their services. I will reach out to contact with [facility] about observation admission.
[2023-11-23 10:38] LABS: POC Glucose,Bedside 312 (70-110)
[2023-11-23] MEDS: humaLOG 100 UNITS/ML 10ML VIAL (SSI) 25 UNIT SQ ×2 (10:52→16:05)
[2023-11-23] MEDS: FLUTICASONE HFA 110MCG INHALER 1 PUFF IH ×2 (11:49→18:35)
[2023-11-23] MEDS: OXYCODONE 5MG IMMEDIATE RELEASE TABLET 10 MG PO (13:20)
--- NOTE | 2023-11-23 14:51 | PC.NURSE ---
aox4, 02-2L nc same as at home in the 90's, DNR DNI, F/C IN PLACE, turn every two hours. 20g R FA SL.
[2023-11-23] MEDS: MONTELUKAST SODIUM 10MG TAB 10 MG PO (16:05)
[2023-11-23] MEDS: ERTAPENEM SODIUM 1 GM in 0.9 % SODIUM CHLORIDE 50 ML IV (16:05)
[2023-11-23] MEDS: RIVAROXABAN 15MG TABLET 15 MG PO (16:05)
[2023-11-23 16:11] LABS: POC Glucose,Bedside 185 (70-110)
[2023-11-23] MEDS: FUROSEMIDE 40 MG TABLET PO (16:11)
[2023-11-23] MEDS: TRAZODONE 50MG TABLET 100 MG PO (20:56)
[2023-11-23] MEDS: TAMSULOSIN 0.4MG CAPSULE 0.8 MG PO (20:56)
[2023-11-23] MEDS: ATORVASTATIN 40MG TABLET 40 MG PO (20:56)
[2023-11-24] VITALS (7 sets, daily range): BP systolic 113–129; BP diastolic 67–78; PULSE 72–107; RESP 16–18; TEMP 36.6–37; O2SAT 90–99; BMI 30.4
[2023-11-24] MEDS: OXYCODONE 5MG IMMEDIATE RELEASE TABLET 10 MG PO ×3 (04:54→16:59)
--- NOTE | 2023-11-24 06:00 | PC.NURSE ---
Pt remains on 2 L nc tolerating well with o2 >90%. Pt has complained of low back pain 2x t/o shift and was administered PRN oxycodone. Pt admits relief. Denies chest pain. Call light within reach.
[2023-11-24] MEDS: FLUTICASONE HFA 110MCG INHALER 1 PUFF IH ×2 (06:15→20:56)
[2023-11-24] MEDS: ALBUTEROL-HFA 90MCG/PUFF INHALER 8GM 2 PUFF IH (06:15)
[2023-11-24] MEDS: humaLOG 100 UNITS/ML 10ML VIAL (SSI) 25 UNIT SQ ×3 (06:33→17:02)
[2023-11-24] MEDS: LEVOTHYROXINE 175MCG (0.175MG) TAB 175 MCG PO (06:34)
[2023-11-24 06:48] LABS: POC Glucose,Bedside 153 (70-110)
[2023-11-24 08:19] LABS: Basophils # 0.1 K/mm3 (0-0.2); Basophils % 0.4 % (0.1-2.0); Eosinophils # 0.1 K/mm3 (0.0-0.4); Eosinophils % 0.9 % (0.1-12.0); Hematocrit 37.3 % (42.0-52.0); Hemoglobin 11.8 g/dL (14.1-18.0); Lymphocytes # 2.5 K/mm3 (0.7-4.5); Lymphocytes % 17.9 % (10-50); Mean Corpuscular HGB Conc 31.6 g/dL (31.8-35.4); Mean Corpuscular Hemoglobin 27.1 pg (27.0-31.2); Mean Corpuscular Volume 85.8 fl (80-94); Mean Platelet Volume 9.4 fl (7.4-10.4); Monocytes # 0.9 K/mm3 (0.1-1.0); Monocytes % 6.3 % (1.7-9.3); Neutrophils # 10.4 K/mm3 (1.8-7.8); Neutrophils % 74.5 % (37.0-80.0); Platelet Count 240 K/mm3 (142-424); Red Blood Count 4.35 M/mm3 (4.60-6.20); Red Cell Distribution Width 16.8 % (11.5-17.5); White Blood Count 13.9 K/mm3 (4.8-10.8)
[2023-11-24 08:23] LABS: Chloride 89 mmol/L (98-107); Potassium 3.8 mmoL/L (3.5-5.1); Sodium 129 mmol/L (136-145)
[2023-11-24 08:26] LABS: Alanine Aminotransferase 22 U/L (12-78); Albumin Level 4.3 g/dl (3.5-5.0); Albumin/Globulin Ratio 1.3 (1.1-1.8); Alkaline Phosphatase 105 U/L (38-126); Anion Gap 13.8 mEq/L (5-15); Aspartate Amino Transferase 35 U/L (17-59); Bilirubin,Total 0.4 mg/dl (0.2-1.3); Blood Urea Nitrogen 19 mg/dl (9-20); Calcium 9.1 mg/dl (8.4-10.2); Carbon Dioxide 30 mmol/L (22.0-30.0); Creatinine Clearance Estimated 76 mL/min (50-200); Estimated Glomerular Filt Rate 55 ml/min (>60); GFR (African American) 67 ML/MIN (>60); Globulin 3.3 g/dL (1.3-3.2); Glucose 136 mg/dl (74-100); Total Protein,Serum 7.6 g/dl (6.3-8.2)
[2023-11-24] MEDS: ARIPiprazole 10MG TABLET 5 MG PO (09:46)
[2023-11-24] MEDS: INSULIN GLARGINE 100 UNITS/ML 3ML FLEXPEN 80 UNIT SQ (09:46)
[2023-11-24] MEDS: ISOSORBIDE MONO 60MG TAB.ER.24H 60 MG PO (09:47)
[2023-11-24] MEDS: PANTOPRAZOLE 40MG TABLET 40 MG PO (09:47)
[2023-11-24] MEDS: OXYBUTYNIN 5MG TAB 5 MG PO ×3 (09:47→21:37)
[2023-11-24] MEDS: FUROSEMIDE 40 MG TABLET PO ×2 (09:47→16:59)
[2023-11-24] MEDS: NYSTATIN TOPICAL POWDER 30GM TP ×2 (09:47→21:37)
[2023-11-24] MEDS: ASPIRIN 81MG CHEWABLE TABLET 81 MG PO (09:47)
[2023-11-24] MEDS: SENNA 8.6MG TABLET 8.6 MG PO (09:48)
[2023-11-24] MEDS: METOPROLOL SUCCINATE XL 25MG TABLET 25 MG PO (09:48)
[2023-11-24] MEDS: CITALOPRAM 20MG TABLET 20 MG PO (09:48)
[2023-11-24] MEDS: TOPIRAMATE 25MG TABLET 25 MG PO (09:48)
[2023-11-24] MEDS: RANOLAZINE 500MG ER TABLET 500 MG PO ×2 (09:48→21:37)
[2023-11-24] MEDS: POTASSIUM CHLORIDE 20MEQ TAB 20 MEQ PO (09:48)
[2023-11-24] MEDS: diazePAM 5MG TABLET 5 MG PO ×3 (09:52→21:36)
[2023-11-24] MEDS: PREGABALIN 100MG CAPSULE 100 MG PO ×3 (09:52→21:37)
[2023-11-24 11:40] LABS: POC Glucose,Bedside 196 (70-110)
[2023-11-24] MEDS: SULFAMETHOXAZOLE/TRIMETHOPRIM 10 ML in DEXTROSE 5 % IN WATER 250 ML 173.333 ML IV ×2 (11:51→23:04)
--- NOTE | 2023-11-24 13:20 | P.PN_ITS ---
Subjective *Date: 11/24/23 *Time: 13:20 Interval history: Patient states he is not feeling any better today. His diarrhea is now an 8 L. Weaned to room air on morning rounds. No nausea or vomiting. Having good urine output. White cell count up today. Remains afebrile. Hemodynamically stable Medical Exam Vital signs and Labs for Last 24 Hours: Vital Signs Temp Pulse Resp BP Pulse Ox O2 Del Method O2 Flow Rate 11/24/23 11:00 Room Air 11/24/23 09:00 Nasal Cannula 11/24/23 08:00 Nasal Cannula 2 11/24/23 08:00 97.9 F 72 16 114/72 95 Nasal Cannula 1 11/24/23 06:43 Nasal Cannula 2 11/24/23 06:16 99 Room Air 2 11/24/23 05:00 Nasal Cannula 2 11/24/23 04:00 98.4 F 85 17 129/70 96 Nasal Cannula 2 11/24/23 03:00 Nasal Cannula 2 11/24/23 01:00 Nasal Cannula 2 11/24/23 00:00 92 L Nasal Cannula 2 11/23/23 23:00 Nasal Cannula 2 11/23/23 21:00 Nasal Cannula 2 11/23/23 20:00 Nasal Cannula 2 11/23/23 19:43 98.4 F 93 H 18 109/71 L 95 11/23/23 18:36 Nasal Cannula 2 11/23/23 17:41 Nasal Cannula 2 11/23/23 16:14 Nasal Cannula 2 11/23/23 16:00 98.6 F 97 H 18 117/67 96 11/23/23 14:05 Nasal Cannula 2 Intake and Output 11/23/23 11/24/23 11/24/23 23:59 07:59 15:59 Intake Total 500 / 1330 610 / 610 Output Total 1550 / 5550 1800 / 3725 1925 / 3725 Balance -1050 / -4220 -1800 / -3115 -1315 / -3115 Intake: Intake, Oral Amount 500 / 1280 610 / 610 Output: Output, Urine Amount 1550 / 5550 1800 / 3725 192 / 3725 Other: Number of Unmeasured Voids 0 0 0 Weight 96.388 kg Patient Weight 11/24/23 23:59 Weight 96.388 kg Laboratory Results - last 24 hr 11/23/23 03:44: Urine Color Yellow, Urine Appearance Cloudy, Urine pH 6.0, Ur Specific [place] 1.015, Urine Protein Trace, Urine Glucose (UA) Negative, Urine Ketones Negative, Urine Blood 2+, Urine Nitrate Negative, Urine Bilirubin Negative, Urine Urobilinogen 0.2, Ur Leukocyte Esterase 2+ A, Urine RBC 5-10, Urine WBC 10-20, Ur Squamous Epith Cells Occasional, Urine Bacteria 1+ 11/23/23 16:03: POC Glucose 185 H 11/24/23 06:28: WBC 13.9 H D, RBC 4.35 L, Hgb 11.8 L, Hct 37.3 L, MCV 85.8, MCH 27.1, MCHC 31.6 L, RDW 16.8, Plt Count 240, MPV 9.4, Neut % (Auto) 74.5, Lymph % (Auto) 17.9, [place] % (Auto) 6.3, Eos % (Auto) 0.9, Baso % (Auto) 0.4, Neut # (Auto) 10.4 H, Lymph # (Auto) 2.5, [place] # (Auto) 0.9, Eos # (Auto) 0.1, Baso # (Auto) 0.1, Sodium 129 L, Potassium 3.8, Chloride 89 L, Carbon Dioxide 30, Anion Gap 13.8, BUN 19, Creatinine 1.30 H, Estimated Creat Clear 76, Estimated GFR 55 L, Est GFR ( Amer) 67, Glucose 136 H, POC Glucose 153 H, Calcium 9.1, Magnesium 2.0 D, Total Bilirubin 0.4, AST 35 D, ALT 22, Alkaline Phosphatase 105, Total Protein 7.6, Albumin 4.3 D, Globulin 3.3 H, Albumin/Globulin Ratio 1.3 11/24/23 11:30: POC Glucose 196 H I & O for Labs for Last 24 Hours: Intake & Output 11/21/23 11/22/23 11/23/23 11/24/23 23:59 23:59 23:59 23:59 Intake Total 1330 / 1330 610 / 610 Output Total 4350 / 5550 3725 / 3725 Balance -3020 / -4220 -3115 / -3115 Weight 93.93 kg 96.388 kg Microbiology Reports for the Last 24 Hours: Microbiology 11/23/23 03:44 Urine,Catheterized Urine Culture - Preliminary Gram Negative Rods Constitutional: Present no acute distress, obese, chronically ill appearing and cooperative Head: Present atraumatic and normocephalic ENT: Present normal exam Neck: Present normal inspection Respiratory: Present normal respiratory effort; Absent rhonchi, wheezes or crackles Cardiac: Present Reg Rate and Rhythm GI: Present soft, distention and normal bowel sounds; Absent tenderness or rigidity Comments:: Firm but not rigid. Comment:: Rodriguez in place, edematous Extremities: Present normal inspection and full ROM Skin: Present intact; Absent erythema Neuro: Present Grossly Intact, alert, awake, oriented x 3 and moves all extremities Assessment and Plan *Assessment and plan (1) Catheter-associated urinary tract infection: Status: Acute Qualifiers: Encounter type: initial encounter Indwelling urinary catheter type: indwelling urethral catheter Qualified Code(s): T83.511A - Infection and inflammatory reaction due to indwelling urethral catheter, initial encounter; N39.0 - Urinary tract infection, site not specified Category: Medical Code(s): T83.511A - Infection and inflammatory reaction due to indwelling urethral catheter, initial encounter; N39.0 - Urinary tract infection, site not specified (2) Chest pain: Status: Acute Qualifiers: Chest pain type: unspecified Qualified Code(s): R07.9 - Chest pain, unspecified Category: Medical Code(s): R07.9 - Chest pain, unspecified (3) [id number] kidney injury: Status: Acute Qualifiers: Acute renal failure type: unspecified Chronic kidney disease stage: stage 3 (moderate) Chronic kidney disease stage 3 subtype: stage 3a (GFR 45-59) Qualified Code(s): N17.9 - Acute kidney failure, unspecified; N18.31 - Chronic kidney disease, stage 3a Category: Medical Code(s): N17.9 - Acute kidney failure, unspecified; N18.9 - Chronic kidney disease, unspecified (4) Diabetes mellitus type 2 in obese: Problem Comment: As I mentioned in the past having rigid A1c goals does not seem appropriate in this patient. However according to the patient and his daughter his last A1c which was done outside of our system was 6.5 which is excellent. Will continue with the current therapies. Status: Acute Category: Medical Code(s): E11.69 - Type 2 diabetes mellitus with other specified complication; E66.9 - Obesity, unspecified (5) HTN (hypertension): Problem Comment: Blood pressures have been good here at the clinic. Will continue his current therapy, see below. Status: Acute Qualifiers: Hypertension type: primary hypertension Qualified Code(s): I10 - Essential (primary) hypertension Category: Medical Code(s): I10 - Essential (primary) hypertension (6) Functional quadriplegia: Status: Chronic Category: Medical Code(s): R53.2 - Functional quadriplegia Plan 68-year-old male with history of prior cauda equina syndrome and chronic urinary retention with chronic indwelling Rodriguez, recent urethral repair after a laceration from Rodriguez's, COPD, hypertension hyperlipidemia, diabetes presents with presents with concerns of chest pain over the last 4 days. patient took 3 nitroglycerin. on arrival patient chest pain free.. EKG negative. troponin negative. CTA showed ground glass opacity. suspected pulmonary edema. UA suggested UTI which is chronic associated with catheter. ED requested admission for further work up. Agreed for admission. Responding to diuresis. -4.8 L since admission. Urine culture returned with E. coli resistant to carbapenems. White cell count up today. Continues to require inpatient management. Problems addressed as follows: Catheter associated UTI Long-term indwelling catheter due to urinary retention -Culture returned with E. coli, resistant to carbapenems. Transition to Bactrim IV twice daily -White cell count increased to 13.9. Patient remains afebrile but feels clinically worse today. -I have ordered CBC, CMP, magnesium for the morning -Needs follow-up with his urologist as an outpatient once clinically stable. -Tolerating diuresis. Continue Lasix 40 mg p.o. twice daily - Diabetes. Uncontrolled A1c 7.8 last month. Improved control. Continue sliding scale insulin with fingersticks ACHS. Continue glargine 80 units nightly Constipation Abdominal pain -Aggressive bowel regimen with MiraLAX and doc/senna. - necessitated enemas the last visit. No bowel movement 48 hours. -States he does not have trouble going at home however has constipation on serial imaging in the past and required aggressive regimen last visit as well. In conjunction with his cauda equina and chronic opiate therapy, suspect chronic constipation that is acutely worse due to his hospitalization. Acute hyponatremia: improving -Sodium 129 this morning, chloride 89. Repeat sodium level in the morning. Holding on IV fluids. -Would like to see sodium above 130 before discharge home Stable chronic conditions: Mood disorder/depression: Continue citalopram 20 mg daily and Abilify 5 mg daily, Valium 5 mg 3 times a day, Topamax 25 mg daily and trazodone 100 mg nightly to help with sleep and mood COPD: Continue fluticasone 1 puff twice daily, Singulair 10 mg daily Hypertension/CAD/CHF: Continue Imdur 60 mg daily, metoprolol 25 mg daily, ranolazine 500 mg twice daily A-fib: Metoprolol as above and Xarelto 15 mg daily Neurogenic bladder: Oxybutynin 5 mg 3 times a day, tamsulosin 0.8 milligrams nightly Neuropathy: Lyrica 100 mg 3 times a day Hypothyroid: Continue levothyroxine 175 mcg daily DNR Diabetic diet
[2023-11-24] MEDS: POLYETHYLENE GLYCOL 3350 17 GM PACKET PO ×2 (13:57→21:38)
[2023-11-24 16:46] LABS: POC Glucose,Bedside 116 (70-110)
[2023-11-24] MEDS: RIVAROXABAN 15MG TABLET 15 MG PO (16:59)
[2023-11-24] MEDS: MONTELUKAST SODIUM 10MG TAB 10 MG PO (17:02)
[2023-11-24 20:38] LABS: POC Glucose,Bedside 95 (70-110)
[2023-11-24] MEDS: ATORVASTATIN 40MG TABLET 40 MG PO (21:36)
[2023-11-24] MEDS: TAMSULOSIN 0.4MG CAPSULE 0.8 MG PO (21:37)
[2023-11-24] MEDS: TRAZODONE 50MG TABLET 100 MG PO (21:38)
[2023-11-25 04:00] VITALS: BP 104/61; PULSE 102; RESP 17; TEMP 36.7; O2SAT 86; BMI 30.4
[2023-11-25 05:54] LABS: POC Glucose,Bedside 158 (70-110)
--- NOTE | 2023-11-25 05:55 | PC.NURSE ---
Patient has had a good night has been able to rest well through the shift. Remains on 2L NC which patient states is chronic. He is AxO x4. Patient latham is in place and is draining clear, yellow. Patient has had no complaints
[2023-11-25 06:17] VITALS: O2SAT 92
[2023-11-25] MEDS: FLUTICASONE HFA 110MCG INHALER 1 PUFF IH (06:17)
[2023-11-25] MEDS: POLYETHYLENE GLYCOL 3350 17 GM PACKET PO ×2 (06:25→13:25)
[2023-11-25] MEDS: humaLOG 100 UNITS/ML 10ML VIAL (SSI) 25 UNIT SQ ×3 (06:26→16:43)
[2023-11-25] MEDS: LEVOTHYROXINE 175MCG (0.175MG) TAB 175 MCG PO (06:26)
--- NOTE | 2023-11-25 07:15 | P.DS_ITS ---
General Admission date:: 11/23/23 Discharge date: 11/25/23 HPI HPI HPI: This is a 68-year-old male with history of prior cauda equina syndrome and chronic urinary retention with chronic indwelling Rodriguez, recent urethral repair after a laceration from Rodriguez's, COPD, hypertension hyperlipidemia, diabetes presents with concerns of chest pain over the last 4 days. Patient took 3 nitro at home but has not had any change in his symptoms, therefore he called EMS. Patient states he has been having increased cough and shortness of breath though he is on his home 2 L nasal cannula saturating 96%. Patient states he is having a nonproductive cough. He denies any exposure to known sick contacts. EMS report there EKG was negative for STEMI. Admitted for further management. Hospital Course Hospital Course Hospital Course: 68-year-old male with history of prior cauda equina syndrome and chronic urinary retention with chronic indwelling Rodriguez, recent urethral repair after a laceration from Rodriguez's, COPD, hypertension hyperlipidemia, diabetes presents with presents with concerns of chest pain over the last 4 days. patient took 3 nitroglycerin. on arrival patient chest pain free.. EKG negative. troponin negative. CTA showed ground glass opacity. suspected pulmonary edema. UA suggested UTI which is chronic associated with catheter. ED requested admission for further work up. Agreed for admission. Responding to diuresis. Down at least 5 L since admission. Urine culture returned positive for E. coli. Antibiotics were transitioned to Bactrim. Will complete 7 days of antibiotic therapy. Stable to discharge home. Problems addressed as follows: Catheter associated UTI Long-term indwelling catheter due to urinary retention -Concern for UTI on admission. Urine culture obtained showing culture returned with E. coli, Bactrim IV twice daily. Transitioned to oral for discharge home. White cell count stable between 10 and 13 during admission. No fever during admission. Would benefit from follow-up with his urologist as an outpatient to discuss suprapubic catheter to decrease risk for further infections. Continue diuresis per home regimen. - Diabetes. Uncontrolled A1c 7.8 last month. Improved control. Continue home regimen at discharge. Treated with sliding scale insulin and fingersticks during admission. Needs repeat A1c in 8 weeks Constipation Abdominal pain -Aggressive bowel regimen with MiraLAX and doc/senna. Had bowel movement on day of discharge. Will increase bowel regimen for discharge home with docusate senna twice daily. Patient has chronic constipation. States he has bowel movements daily but then also adds he sometimes needs help getting them out. This has been a repeated problem for him on past hospitalizations. In conjunction with his cauda equina and chronic opiate therapy, suspect chronic constipation. Acute hyponatremia: improving -Sodium 126 this morning, chloride 90. Sodium fluctuates between 125 and 130 based on previous levels. Would benefit from continuing liberal sodium at home with diet Stable chronic conditions: Mood disorder/depression: Continue citalopram 20 mg daily and Abilify 5 mg daily, Valium 5 mg 3 times a day, Topamax 25 mg daily and trazodone 100 mg nightly to help with sleep and mood COPD: Continue fluticasone 1 puff twice daily, Singulair 10 mg daily Hypertension/CAD/CHF: Continue Imdur 60 mg daily, metoprolol 25 mg daily, ranolazine 500 mg twice daily A-fib: Metoprolol as above and Xarelto 15 mg daily Neurogenic bladder: Oxybutynin 5 mg 3 times a day, tamsulosin 0.8 milligrams nightly Neuropathy: Lyrica 100 mg 3 times a day Hypothyroid: Continue levothyroxine 175 mcg daily Total time spent on discharge 40 minutes in counseling, documentation, chart review, and direct care with patient. Exam Data for Last 24 hours Vital signs and Labs for Last 24 Hours: Temp Pulse Resp BP Pulse Ox O2 Del Method O2 Flow Rate 98.1 F 102 H 17 104/61 L 92 L Nasal Cannula 2 11/25/23 04:00 11/25/23 04:00 11/25/23 04:00 11/25/23 04:00 11/25/23 06:17 11/25/23 06:51 11/25/23 06:51 Laboratory Results - last 24 hr 11/23/23 03:44: Urine Color Yellow, Urine Appearance Cloudy, Urine pH 6.0, Ur Specific [place] 1.015, Urine Protein Trace, Urine Glucose (UA) Negative, Urine Ketones Negative, Urine Blood 2+, Urine Nitrate Negative, Urine Bilirubin N egative, Urine Urobilinogen 0.2, Ur Leukocyte Esterase 2+ A, Urine RBC 5-10, Urine WBC 10-20, Ur Squamous Epith Cells Occasional, Urine Bacteria 1+ 11/24/23 06:28: WBC 13.9 H D, RBC 4.35 L, Hgb 11.8 L, Hct 37.3 L, MCV 85.8, MCH 27.1, MCHC 31.6 L, RDW 16.8, Plt Count 240, MPV 9.4, Neut % (Auto) 74.5, Lymph % (Auto) 17.9, [place] % (Auto) 6.3, Eos % (Auto) 0.9, Baso % (Auto) 0.4, Neut # (Auto) 10.4 H, Lymph # (Auto) 2.5, [place] # (Auto) 0.9, Eos # (Auto) 0.1, Baso # (Auto) 0.1, Sodium 129 L, Potassium 3.8, Chloride 89 L, Carbon Dioxide 30, Anion Gap 13.8, BUN 19, Creatinine 1.30 H, Estimated Creat Clear 76, Estimated GFR 55 L, Est GFR ( Amer) 67, Glucose 136 H, Calcium 9.1, Magnesium 2.0 D, Total Bilirubin 0.4, AST 35 D, ALT 22, Alkaline Phosphatase 105, Total Protein 7.6, Albumin 4.3 D, Globulin 3.3 H, Albumin/Globulin Ratio 1.3 11/24/23 11:30: POC Glucose 196 H 11/24/23 16:24: POC Glucose 116 H 11/24/23 20:31: POC Glucose 95 11/25/23 05:47: POC Glucose 158 H I & O for Last 24 hours: Intake & Output 11/22/23 11/23/23 11/24/23 11/25/23 23:59 23:59 23:59 23:59 Intake Total 1330 / 1330 1420 / 1712 292 / 292 Output Total 4350 / 5550 6900 / 6900 1625 / 1625 Balance -3020 / -4220 -5480 / -5188 -1333 / -1333 Weight 93.93 kg 96.388 kg 96.388 kg Microbiology Reports for the Last 24 Hours: Microbiology 11/23/23 03:44 Urine,Catheterized Urine Culture - Preliminary Gram Negative Rods Constitutional Constitutional: no acute distress, obese, chronically ill appearing and disheveled *Routine HEENT Exam Head: Present normocephalic Eye: Present EOMI and PERRL ENT: Present mucous membranes moist *Routine Neck Exam Neck: Present supple; Absent lymphadenopathy *Routine Respiratory Exam Respiratory: Present CTA bilaterally; Absent rhonchi, wheezes or crackles *Routine Cardiovascular Exam Cardiovascular: Present RRR *Routine Abdominal Exam Abdominal: Present soft, normoactive bowel sounds, tenderness (Minimal) and distended (At baseline); Absent rebound or guarding *Routine Exam Comments: Rodriguez in place *Routine Extremities Exam Extremities: Absent cyanosis, clubbing or edema *Routine Skin Exam Skin: Present warm; Absent rash *Routine Neurological Exam Neurological: Present alert and oriented X3; Absent altered mental status Results Data Completed and Pending Labs on day of discharge: Labs from last 24 hours 11/25/23 11/24/23 11/24/23 05:47 20:31 16:24 WBC RBC Hgb Hct MCV MCH MCHC RDW Plt Count MPV Neut % (Auto) Lymph % (Auto) [place] % (Auto) Eos % (Auto) Baso % (Auto) Neut # (Auto) Lymph # (Auto) [place] # (Auto) Eos # (Auto) Baso # (Auto) Sodium Potassium Chloride Carbon Dioxide Anion Gap BUN Creatinine Estimated Creat Clear Estimated GFR Est GFR ( Amer) Glucose POC Glucose 158 H 95 116 H Calcium Magnesium Total Bilirubin AST ALT Alkaline Phosphatase Total Protein Albumin Globulin Albumin/Globulin Ratio Urine Color Urine Appearance Urine pH Ur Specific [place] Urine Protein Urine Glucose (UA) Urine Ketones Urine Blood Urine Nitrate Urine Bilirubin Urine Urobilinogen Ur Leukocyte Esterase Urine RBC Urine WBC Ur Squamous Epith Cells Urine Bacteria 11/24/23 11/24/23 11/23/23 11:30 06:28 03:44 WBC 13.9 H D RBC 4.35 L Hgb 11.8 L Hct 37.3 L MCV 85.8 MCH 27.1 MCHC 31.6 L RDW 16.8 Plt Count 240 MPV 9.4 Neut % (Auto) 74.5 Lymph % (Auto) 17.9 [place] % (Auto) 6.3 Eos % (Auto) 0.9 Baso % (Auto) 0.4 Neut # (Auto) 10.4 H Lymph # (Auto) 2.5 [place] # (Auto) 0.9 Eos # (Auto) 0.1 Baso # (Auto) 0.1 Sodium 129 L Potassium 3.8 Chloride 89 L Carbon Dioxide 30 Anion Gap 13.8 BUN 19 Creatinine 1.30 H Estimated Creat Clear 76 Estimated GFR 55 L Est GFR ( Amer) 67 Glucose 136 H POC Glucose 196 H Calcium 9.1 Magnesium 2.0 D Total Bilirubin 0.4 AST 35 D ALT 22 Alkaline Phosphatase 105 Total Protein 7.6 Albumin 4.3 D Globulin 3.3 H Albumin/Globulin Ratio 1.3 Urine Color Yellow Urine Appearance Cloudy Urine pH 6.0 Ur Specific [place] 1.015 Urine Protein Trace Urine Glucose (UA) Negative Urine Ketones Negative Urine Blood 2+ Urine Nitrate Negative Urine Bilirubin Negative Urine Urobilinogen 0.2 Ur Leukocyte Esterase 2+ A Urine RBC 5-10 Urine WBC 10-20 Ur Squamous Epith Cells Occasional Urine Bacteria 1+ Preliminary micro results at discharge 11/23/23 03:44 Urine Culture - Preliminary Urine,Catheterized Gram Negative Rods DS: Diagnosis Discharge Diagnosis (1) Catheter-associated urinary tract infection: Status: Acute Code(s): T83.511A - Infection and inflammatory reaction due to indwelling urethral catheter, initial encounter; N39.0 - Urinary tract infection, site not specified Qualifiers: Encounter type: initial encounter Indwelling urinary catheter type: indwelling urethral catheter Qualified Code(s): T83.511A - Infection and inflammatory reaction due to indwelling urethral catheter, initial encounter; N39.0 - Urinary tract infection, site not specified (2) Chest pain: Status: Acute Code(s): R07.9 - Chest pain, unspecified Qualifiers: Chest pain type: unspecified Qualified Code(s): R07.9 - Chest pain, unspecified (3) [id number] kidney injury: Status: Acute Code(s): N17.9 - Acute kidney failure, unspecified; N18.9 - Chronic kidney disease, unspecified Qualifiers: Acute renal failure type: unspecified Chronic kidney disease stage: stage 3 (moderate) Chronic kidney disease stage 3 subtype: stage 3a (GFR 45-59) Qualified Code(s): N17.9 - Acute kidney failure, unspecified; N18.31 - Chronic kidney disease, stage 3a (4) Diabetes mellitus type 2 in obese: Status: Acute Code(s): E11.69 - Type 2 diabetes mellitus with other specified complication; E66.9 - Obesity, unspecified Problem details: As I mentioned in the past having rigid A1c goals does not seem appropriate in this patient. However according to the patient and his daughter his last A1c which was done outside of our system was 6.5 which is excellent. Will continue with the current therapies. (5) HTN (hypertension): Status: Acute Code(s): I10 - Essential (primary) hypertension Qualifiers: Hypertension type: primary hypertension Qualified Code(s): I10 - Essential (primary) hypertension Problem details: Blood pressures have been good here at the clinic. Will continue his current therapy, see below. (6) Functional quadriplegia: Status: Chronic Code(s): R53.2 - Functional quadriplegia Meds Home Medications and Allergies Home Medications Medication Instructions Recorded Confirmed Type aspirin 81 mg chewable tablet 81 mg PO DAILY 03/29/23 11/23/23 History allopurinol 300 mg tablet 300 mg PO DAILY Gout 90 days #90 04/17/23 11/23/23 Rx tabs atorvastatin 40 mg tablet 40 mg PO HS Cholesterol 90 days 04/17/23 11/23/23 Rx #90 tabs budesonide 90 mcg/actuation breath 1 inh inhalation BID 30 days #1 ea 04/17/23 11/23/23 Rx activated powder inhaler insulin lispro 100 unit/mL 25 unit (0.25 mL) SQ AC Diabetes 04/17/23 11/23/23 Rx subcutaneous pen 60 days #15 mL isosorbide mononitrate 60 mg 60 mg PO DAILY High Blood Pressure 04/17/23 11/23/23 Rx tablet,extended release 24 hr 90 days #90 tabs montelukast 10 mg tablet 10 mg PO DAILY allergies 90 days 04/17/23 11/23/23 Rx #90 tabs nitroglycerin 0.4 mg sublingual 0.4 mg sublingual Q5MINP PRN chest 04/17/23 11/23/23 Rx tablet pain #90 tabs oxybutynin chloride 15 mg 15 mg PO DAILY Bladder 90 days #90 04/17/23 11/23/23 Rx tablet,extended release 24 hr tabs potassium chloride 20 mEq 20 meq PO DAILY Supplement 90 days 04/17/23 11/23/23 Rx tablet,extended release #90 tabs rivaroxaban 15 mg tablet 15 mg PO QPMWITHMEAL Blood 04/17/23 11/23/23 Rx thinner/AFIB 90 days #90 tabs tamsulosin 0.4 mg capsule 0.8 mg (2 x 0.4 mg) PO HS Prostate 04/17/23 11/23/23 Rx 90 days #180 caps albuterol sulfate 90 mcg/actuation 2 inh inhalation Q4HP PRN 05/12/23 11/23/23 History aerosol inhaler (Ventolin HFA) Shortness Of Breath insulin glargine 100 unit/mL (3 80 unit SQ DAILY Diabetes 05/12/23 11/23/23 History mL) subcutaneous pen (Basaglar KwikPen U-100 Insulin) topiramate 25 mg tablet (Topamax) 25 mg PO DAILY Migraines 90 days 06/05/23 11/23/23 Rx #90 tabs semaglutide 2 mg/dose (8 mg/3 mL) 2 mg SQ WEEKLY 06/14/23 11/23/23 History subcutaneous pen injector (Ozempic) aripiprazole 5 mg tablet 5 mg PO DAILY Mood #90 tabs 08/20/23 11/23/23 Rx diazepam 5 mg tablet 5 mg PO TID Tremors 90 days #270 09/04/23 11/23/23 Rx tabs escitalopram oxalate 10 mg tablet 10 mg PO DAILY 10/20/23 11/23/23 History levothyroxine 175 mcg tablet 175 mcg PO DAILYDM 10/20/23 11/23/23 History metoprolol succinate 25 mg 25 mg PO DAILY 10/20/23 11/23/23 History tablet,extended release 24 hr pantoprazole 40 mg tablet,delayed 40 mg PO DAILY 10/20/23 11/23/23 History release pregabalin 100 mg capsule 100 mg PO TID 10/20/23 11/23/23 History furosemide 40 mg tablet 40 mg PO DAILY Fluid #90 tabs 10/31/23 11/23/23 Rx oxycodone 10 mg tablet 10 mg PO Q6HP PRN chronic pain 11/05/23 11/23/23 Rx #120 tabs nystatin 100,000 unit/gram topical 1 applic topical BID #60 grams 11/09/23 11/23/23 Rx powder ranolazine 500 mg tablet,extended 500 mg PO Q12H #180 tabs 11/13/23 11/23/23 Rx release,12 hr trazodone 100 mg tablet 100 mg PO HS insomnia #30 tabs 11/14/23 11/23/23 Rx sennosides 8.6 mg-docusate sodium 1 tab PO BID 30 days #60 tabs 11/25/23 Rx 50 mg tablet (Stimulant Laxative Plus) sulfamethoxazole 800 1 tab PO BID 5 days #10 tabs 11/25/23 Rx mg-trimethoprim 160 mg tablet (Bactrim DS) New Prescriptions to Start Prescriptions: sennosides-docusate sodium [Stimulant Laxative Plus] Bret Nieto sulfamethoxazole-trimethoprim [Bactrim DS] Bret Nieto Allergies Allergy/AdvReac Type Severity Reaction Status Date / Time gabapentin [From Neurontin] Allergy Intermediate Rash Verified 09/10/23 10:04 Discharge Plan Disposition Patient Disposition: Home Health Service Condition: Fair Discharge Order Discharge Orders: Discharge Order (Routine); Ordered 11/25/23 Ordered By: Bret Nieto Follow up Plan Follow up with: Paulo Brody DO [Primary Care Provider] - 12/03/23 2:00 pm Prescriptions/Medication Reconciliation: New sennosides-docusate sodium [Stimulant Laxative Plus] 8.6-50 mg Tablet 1 tab PO BID 30 Days Qty: 60 0RF sulfamethoxazole-trimethoprim [Bactrim DS] 800-160 mg tablet 1 tab PO BID 5 Days Qty: 10 0RF Continued Ozempic 2 mg/dose (8 mg/3 mL) pen injector 2 mg SQ WEEKLY allopurinol 300 mg tablet 300 mg PO DAILY 90 Days Qty: 90 3RF atorvastatin 40 mg tablet 40 mg PO HS 90 Days Qty: 90 2RF isosorbide mononitrate 60 mg tablet extended release 24 hr 60 mg PO DAILY 90 Days Qty: 90 2RF montelukast 10 mg tablet 10 mg PO DAILY 90 Days Qty: 90 2RF nitroglycerin 0.4 mg tablet, sublingual 0.4 mg SUBLINGUAL Q5MINP PRN (Reason: chest pain) Qty: 90 0RF oxybutynin chloride 15 mg tablet extended release 24hr 15 mg PO DAILY 90 Days Qty: 90 2RF potassium chloride 20 mEq tablet extended release 20 meq PO DAILY 90 Days Qty: 90 2RF rivaroxaban 15 mg tablet 15 mg PO QPMWITHMEAL 90 Days Qty: 90 2RF tamsulosin 0.4 mg capsule 0.8 mg PO HS 90 Days Qty: 180 3RF insulin lispro 100 unit/mL insulin pen 25 unit SQ AC 60 Days Qty: 15 2RF budesonide 90 mcg/actuation aerosol powdr breath activated 1 inh inhalation BID 30 Days Qty: 1 4RF topiramate [Topamax] 25 mg tablet 25 mg PO DAILY 90 Days Qty: 90 3RF aripiprazole 5 mg tablet 5 mg PO DAILY Qty: 90 1RF diazepam 5 mg tablet 5 mg PO TID 90 Days Qty: 270 2RF furosemide 40 mg tablet 40 mg PO DAILY Qty: 90 4RF oxycodone 10 mg tablet 10 mg PO Q6HP PRN (Reason: chronic pain) Qty: 120 0RF nystatin 100,000 unit/gram powder 1 applic topical BID Qty: 60 2RF ranolazine 500 mg tablet extended release 12 hr 500 mg PO Q12H Qty: 180 1RF Rx Instructions: do not break, crush, or chew tablet(s) trazodone 100 mg tablet 100 mg PO HS Qty: 30 0RF aspirin 81 mg tablet,chewable 81 mg PO DAILY albuterol sulfate [Ventolin HFA] 90 mcg/actuation HFA aerosol inhaler 2 inh INHALATION Q4HP PRN (Reason: Shortness Of Breath) Patient Comments: INHALE 2 PUFFS BY MOUTH EVERY 4 TO 6 HOURS NEEDED FOR SHORTNESS OF BREATH OR WHEEZING insulin glargine [Basaglar KwikPen U-100 Insulin] 100 unit/mL (3 mL) insulin pen 80 unit SQ DAILY Patient Comments: ADMINISTER 70 UNITS UNDER THE SKIN EVERY MORNING levothyroxine 175 mcg tablet 175 mcg PO DAILYDM pantoprazole 40 mg tablet,delayed release (DR/EC) 40 mg PO DAILY metoprolol succinate 25 mg tablet extended release 24 hr 25 mg PO DAILY escitalopram oxalate 10 mg tablet 10 mg PO DAILY pregabalin 100 mg capsule 100 mg PO TID Discontinued sennosides [Senna Laxative] 8.6 mg Tablet 8.6 mg PO BID 30 Days Qty: 60 0RF Problem Reconciliation Problems Reviewed?: Yes Patient Discharge Instructions ACTIVITY: Continue current activity DIET: continue same diet Patient Instructions: DI for Pneumonia -- Adult, DI for Urinary Tract Infection (UTI), DI for Chest Pain Providers Primary Care Provider: Paulo Brody Admit Provider: Bret Nieto Attending Provider: Bret Nieto
[2023-11-25 08:00] VITALS: BP 139/69; PULSE 88; RESP 14; TEMP 37; O2SAT 92
[2023-11-25 08:38] LABS: Eosinophils # 0.1 K/mm3 (0.0-0.4); Lymphocytes % 18.8 % (10-50); Mean Corpuscular HGB Conc 32.4 g/dL (31.8-35.4)
[2023-11-25] MEDS: ONDANSETRON 4MG/2ML VIAL 4 MG IV (08:45)
[2023-11-25] MEDS: PREGABALIN 100MG CAPSULE 100 MG PO ×2 (08:47→13:27)
[2023-11-25] MEDS: POTASSIUM CHLORIDE 20MEQ TAB 20 MEQ PO (08:47)
[2023-11-25] MEDS: diazePAM 5MG TABLET 5 MG PO ×2 (08:48→13:25)
[2023-11-25] MEDS: CITALOPRAM 20MG TABLET 20 MG PO (08:48)
[2023-11-25] MEDS: OXYBUTYNIN 5MG TAB 5 MG PO ×2 (08:48→13:25)
[2023-11-25] MEDS: RANOLAZINE 500MG ER TABLET 500 MG PO (08:48)
[2023-11-25] MEDS: ARIPiprazole 10MG TABLET 5 MG PO (08:48)
[2023-11-25] MEDS: TOPIRAMATE 25MG TABLET 25 MG PO (08:48)
[2023-11-25] MEDS: ASPIRIN 81MG CHEWABLE TABLET 81 MG PO (08:48)
[2023-11-25] MEDS: FUROSEMIDE 40 MG TABLET PO ×2 (08:48→16:37)
[2023-11-25] MEDS: METOPROLOL SUCCINATE XL 25MG TABLET 25 MG PO (08:49)
[2023-11-25] MEDS: INSULIN GLARGINE 100 UNITS/ML 3ML FLEXPEN 80 UNIT SQ (08:49)
[2023-11-25] MEDS: ISOSORBIDE MONO 60MG TAB.ER.24H 60 MG PO (08:49)
[2023-11-25] MEDS: PANTOPRAZOLE 40MG TABLET 40 MG PO (08:49)
[2023-11-25] MEDS: NYSTATIN TOPICAL POWDER 30GM TP (08:50)
[2023-11-25] MEDS: OXYCODONE 5MG IMMEDIATE RELEASE TABLET 10 MG PO (08:52)
[2023-11-25 09:00] LABS: Chloride 90 mmol/L (98-107); Potassium 3.8 mmoL/L (3.5-5.1); Sodium 126 mmol/L (136-145)
[2023-11-25 09:02] LABS: Alanine Aminotransferase 17 U/L (12-78); Aspartate Amino Transferase 31 U/L (17-59); Blood Urea Nitrogen 19 mg/dl (9-20); Creatinine Clearance Estimated 76 mL/min (50-200); Estimated Glomerular Filt Rate 55 ml/min (>60); GFR (African American) 67 ML/MIN (>60)
[2023-11-25 09:03] LABS: Albumin Level 3.8 g/dl (3.5-5.0); Albumin/Globulin Ratio 1.2 (1.1-1.8); Alkaline Phosphatase 101 U/L (38-126); Anion Gap 13.8 mEq/L (5-15); Bilirubin,Total 0.4 mg/dl (0.2-1.3); Calcium 8.8 mg/dl (8.4-10.2); Carbon Dioxide 26 mmol/L (22.0-30.0); Globulin 3.1 g/dL (1.3-3.2); Glucose 128 mg/dl (74-100); Total Protein,Serum 6.9 g/dl (6.3-8.2)
[2023-11-25 09:08] LABS: Basophils % 0.3 % (0.1-2.0); Eosinophils % 0.9 % (0.1-12.0); Lymphocytes # 2.5 K/mm3 (0.7-4.5); Mean Corpuscular Hemoglobin 26.9 pg (27.0-31.2); Mean Corpuscular Volume 83.3 fl (80-94); Mean Platelet Volume 9.5 fl (7.4-10.4); Monocytes # 0.6 K/mm3 (0.1-1.0); Monocytes % 4.5 % (1.7-9.3); Neutrophils % 75.6 % (37.0-80.0); Platelet Count 257 K/mm3 (142-424); Red Blood Count 3.96 M/mm3 (4.60-6.20); Red Cell Distribution Width 16.7 % (11.5-17.5); White Blood Count 13.3 K/mm3 (4.8-10.8)
[2023-11-25 09:18] LABS: Hemoglobin 10.7 g/dL (14.1-18.0)
[2023-11-25 09:33] LABS: Magnesium 1.8 mg/dl (1.6-2.3)
[2023-11-25] MEDS: SODIUM PHOS/BIPHOSPHATE FLEET 133ML ENEMA 133 ML RC (11:32)
[2023-11-25] MEDS: SULFAMETHOXAZOLE/TRIMETHOPRIM 10 ML in DEXTROSE 5 % IN WATER 250 ML 173.333 ML IV (11:37)
[2023-11-25 11:39] LABS: POC Glucose,Bedside 106 (70-110)
--- NOTE | 2023-11-25 15:07 | P.PN_ITS ---
Subjective *Date: 11/25/23 *Time: 17:04 Interval history: Worsening abdominal distention. Still had a bowel movement even with oral regimen. Tolerating p.o. intake. No nausea or vomiting. Baseline oxygen requirement of 2 L. Tolerating IV antibiotics. Sodium with slight improvement. Medical Exam Vital signs and Labs for Last 24 Hours: Vital Signs Temp Pulse Resp BP Pulse Ox O2 Del Method O2 Flow Rate 11/25/23 13:00 Room Air 11/25/23 11:00 Nasal Cannula 2 11/25/23 09:00 Nasal Cannula 2 11/25/23 08:00 Room Air 11/25/23 08:00 98.6 F 88 14 139/69 92 L Nasal Cannula 1 11/25/23 06:51 Nasal Cannula 2 11/25/23 06:17 92 L Nasal Cannula 2 11/25/23 04:48 Nasal Cannula 2 11/25/23 04:00 98.1 F 102 H 17 104/61 L 86 L Room Air 11/25/23 03:00 Room Air 11/25/23 00:47 Room Air 11/24/23 23:00 Room Air 11/24/23 21:11 Nasal Cannula 2 11/24/23 21:10 90 L Room Air 11/24/23 21:00 Nasal Cannula 2 11/24/23 20:00 107 H 18 92 L Nasal Cannula 2 11/24/23 20:00 98.3 F 107 H 18 113/67 92 L Nasal Cannula 2 11/24/23 18:30 Nasal Cannula 2 11/24/23 17:00 Nasal Cannula 2 11/24/23 16:00 Nasal Cannula 2 11/24/23 16:00 98.6 F 84 16 122/78 92 L Nasal Cannula 0.5 Intake and Output 11/24/23 11/25/23 11/25/23 23:59 07:59 15:59 Intake Total 270 / 1712 292 / 992 700 / 992 Output Total 3175 / 6900 1625 / 4150 2525 / 4150 Balance -2905 / -5188 -1333 / -3158 -1825 / -3158 Intake: Intake, Oral Amount 270 / 1520 100 / 800 700 / 800 Intake, Total IV Amount 192 / 192 Sulfamethoxazole/Trimethoprim 192 / 192 10 ml In Dextrose 5 % in Water 250 ml @ 173.333 mls/hr IV Q12H [facility] Rx#:[id number] Output: Output, Urine Amount 3175 / 6900 700 / 3225 2525 / 3225 Output, Urine Amount (Catheter) 925 / 925 Rodriguez 925 / 925 Other: Number of Unmeasured Voids 0 0 1 Weight 96.388 kg Patient Weight 11/25/23 23:59 Weight 96.388 kg Laboratory Results - last 24 hr 11/24/23 16:24: POC Glucose 116 H 11/24/23 20:31: POC Glucose 95 11/25/23 05:47: POC Glucose 158 H 11/25/23 06:23: WBC 13.3 H, RBC 3.96 L, Hgb 10.7 L, Hct 33.0 L, MCV 83.3, MCH 26.9 L, MCHC 32.4, RDW 16.7, Plt Count 257, MPV 9.5, Neut % (Auto) 75.6, Lymph % (Auto) 18.8, Gilliam % (Auto) 4.5, Eos % (Auto) 0.9, Baso % (Auto) 0.3, Neut # (Auto) 10.0 H, Lymph # (Auto) 2.5, Gilliam # (Auto) 0.6, Eos # (Auto) 0.1, Baso # (Auto) 0.0, Sodium 126 L, Potassium 3.8, Chloride 90 L, Carbon Dioxide 26, Anion Gap 13.8, BUN 19, Creatinine 1.30 H, Estimated Creat Clear 76, Estimated GFR 55 L, Est GFR ( Amer) 67, Glucose 128 H, Calcium 8.8, Magnesium 1.8, Total Bilirubin 0.4, AST 31, ALT 17, Alkaline Phosphatase 101, Total Protein 6.9, Albumin 3.8 D, Globulin 3.1, Albumin/Globulin Ratio 1.2 11/25/23 11:18: POC Glucose 106 I & O for Labs for Last 24 Hours: Intake & Output 11/22/23 11/23/23 11/24/23 11/25/23 23:59 23:59 23:59 23:59 Intake Total 1330 / 1330 1420 / 1712 992 / 992 Output Total 4350 / 5550 6900 / 6900 4150 / 4150 Balance -3020 / -4220 -5480 / -5188 -9008 / -3154 Weight 93.93 kg 96.388 kg 96.388 kg Microbiology Reports for the Last 24 Hours: Microbiology 11/23/23 03:44 Urine,Catheterized Urine Culture - Final Escherichia coli Constitutional: Present no acute distress, obese, chronically ill appearing and cooperative Head: Present atraumatic and normocephalic ENT: Present normal exam Neck: Present normal inspection Respiratory: Present normal respiratory effort; Absent rhonchi, wheezes or crackles Cardiac: Present Reg Rate and Rhythm GI: Present soft, distention and normal bowel sounds; Absent tenderness or rigidity Comments:: Firm but not rigid. Comment:: Rodriguez in place, edematous Extremities: Present normal inspection and full ROM Skin: Present intact; Absent erythema Neuro: Present Grossly Intact, alert, awake, oriented x 3 and moves all extremities Assessment and Plan *Assessment and plan (1) Catheter-associated urinary tract infection: Status: Acute Qualifiers: Encounter type: initial encounter Indwelling urinary catheter type: indwelling urethral catheter Qualified Code(s): T83.511A - Infection and inflammatory reaction due to indwelling urethral catheter, initial encounter; N39.0 - Urinary tract infection, site not specified Category: Medical Code(s): T83.511A - Infection and inflammatory reaction due to indwelling urethral catheter, initial encounter; N39.0 - Urinary tract infection, site not specified (2) Constipation: Status: Acute Category: Medical Code(s): K59.00 - Constipation, unspecified (3) Chest pain: Status: Acute Qualifiers: Chest pain type: unspecified Qualified Code(s): R07.9 - Chest pain, unspecified Category: Medical Code(s): R07.9 - Chest pain, unspecified (4) [id number] kidney injury: Status: Acute Qualifiers: Acute renal failure type: unspecified Chronic kidney disease stage: stage 3 (moderate) Chronic kidney disease stage 3 subtype: stage 3a (GFR 45-59) Qualified Code(s): N17.9 - Acute kidney failure, unspecified; N18.31 - Chronic kidney disease, stage 3a Category: Medical Code(s): N17.9 - Acute kidney failure, unspecified; N18.9 - Chronic kidney disease, unspecified (5) Diabetes mellitus type 2 in obese: Problem Comment: As I mentioned in the past having rigid A1c goals does not seem appropriate in this patient. However according to the patient and his daughter his last A1c which was done outside of our system was 6.5 which is excellent. Will continue with the current therapies. Status: Acute Category: Medical Code(s): E11.69 - Type 2 diabetes mellitus with other specified complication; E66.9 - Obesity, unspecified (6) HTN (hypertension): Problem Comment: Blood pressures have been good here at the clinic. Will continue his current therapy, see below. Status: Acute Qualifiers: Hypertension type: primary hypertension Qualified Code(s): I10 - Essential (primary) hypertension Category: Medical Code(s): I10 - Essential (primary) hypertension (7) Functional quadriplegia: Status: Chronic Category: Medical Code(s): R53.2 - Functional quadriplegia Plan 68-year-old male with history of prior cauda equina syndrome and chronic urinary retention with chronic indwelling Rodriguez, recent urethral repair after a laceration from Rodriguez's, COPD, hypertension hyperlipidemia, diabetes presents with presents with concerns of chest pain over the last 4 days. patient took 3 nitroglycerin. on arrival patient chest pain free.. EKG negative. troponin negative. CTA showed ground glass opacity. suspected pulmonary edema. UA suggested UTI which is chronic associated with catheter. ED requested admission for further work up. Agreed for admission. Responding to diuresis. -4.8 L since admission. Urine culture returned with E. coli resistant to carbapenems. White cell count up today. Continues to require inpatient management. Problems addressed as follows: Catheter associated UTI Long-term indwelling catheter due to urinary retention -Culture returned with E. coli, Bactrim IV twice daily, will transition oral when stable for discharge -White cell count increased to 13. Patient remains afebrile but feels clinically worse today. -I have ordered CBC, CMP, magnesium for the morning -Needs follow-up with his urologist as an outpatient once clinically stable. -Tolerating diuresis. Continue Lasix 40 mg p.o. twice daily - Diabetes. Uncontrolled A1c 7.8 last month. Improved control. Continue sliding scale insulin with fingersticks ACHS. Continue glargine 80 units nightly Constipation Abdominal pain -Aggressive bowel regimen with MiraLAX and doc/senna. -Still a bowel movement since admission. Enema administered today. Would like to have bowel movement prior to discharge home. -States he does not have trouble going at home however has constipation on serial imaging in the past and required aggressive regimen last visit as well. In conjunction with his cauda equina and chronic opiate therapy, suspect chronic constipation that is acutely worse due to his hospitalization. Acute hyponatremia: improving -Sodium 126 this morning, chloride 90. Repeat sodium level in the morning. Holding on IV fluids. -Would like to see sodium around 130 before discharge home -Initiate sodium supplementation 500 mg p.o. twice daily Stable chronic conditions: Mood disorder/depression: Continue citalopram 20 mg daily and Abilify 5 mg daily, Valium 5 mg 3 times a day, Topamax 25 mg daily and trazodone 100 mg nightly to help with sleep and mood COPD: Continue fluticasone 1 puff twice daily, Singulair 10 mg daily Hypertension/CAD/CHF: Continue Imdur 60 mg daily, metoprolol 25 mg daily, ranolazine 500 mg twice daily A-fib: Metoprolol as above and Xarelto 15 mg daily Neurogenic bladder: Oxybutynin 5 mg 3 times a day, tamsulosin 0.8 milligrams nightly Neuropathy: Lyrica 100 mg 3 times a day Hypothyroid: Continue levothyroxine 175 mcg daily DNR Diabetic diet
[2023-11-25 15:49] VITALS: BP 124/69; PULSE 86; RESP 15; TEMP 36.6; O2SAT 90
[2023-11-25] MEDS: MONTELUKAST SODIUM 10MG TAB 10 MG PO (17:20)
[2023-11-25] MEDS: RIVAROXABAN 15MG TABLET 15 MG PO (17:20)
[2023-11-25] MEDS: SULFA/TRIMETHOPRIM 1 TABLET 1 EACH PO (17:20)
[2023-11-25 18:10] LABS: POC Glucose,Bedside 116 (70-110)
--- NOTE | 2023-11-26 15:52 | CARE MANAGER ---
Contacted patient's daughter related to hospital discharge. She states that he is doing well. We discussed why patient was in observation status while here. She verbalized understanding. She is also aware of follow up appointment. ANGELLA Barney
== END 2023-11-25 16:36 | disposition home health service (06) ==
LOC: ER 04:19 → 2ND 04:26
PROVIDERS: Nurse Practitioner Family; Admitting Provider Internal Medicine Adolescent Medicine; Emergency Provider Emergency Medicine; PCP Internal Medicine; Visit Provider Internal Medicine Adolescent Medicine
DX: J18.9 Pneumonia, unspecified organism (principal); T83.511A Infection and inflammatory reaction due to indwelling urethral catheter, initial encounter; N39.0 Urinary tract infection, site not specified; R07.9 Chest pain, unspecified; N17.9 Acute kidney failure, unspecified; N18.31 Chronic kidney disease, stage 3a; E66.9 Obesity, unspecified; R53.2 Functional quadriplegia; E11.22 Type 2 diabetes mellitus with diabetic chronic kidney disease; I12.9 Hypertensive chronic kidney disease with stage 1 through stage 4 chronic kidney disease, or unspecified chronic kidney disease; Z87.891 Personal history of nicotine dependence; E11.65 Type 2 diabetes mellitus with hyperglycemia; E87.1 Hypo-osmolality and hyponatremia; F32.A Depression, unspecified; J44.0 Chronic obstructive pulmonary disease with (acute) lower respiratory infection; N31.2 Flaccid neuropathic bladder, not elsewhere classified; E11.40 Type 2 diabetes mellitus with diabetic neuropathy, unspecified; Z99.81 Dependence on supplemental oxygen; R33.9 Retention of urine, unspecified
CPT/HCPCS: 36415; 51702; 71045; 71275; 80053; 81001; 82803; 82962; 83735; 84484; 85025; 87086; 87088; 87186; 93005; 94640; 94761; 99285; G0378; J0131; J1335; J1940; J2185; J2405; J3475; J7060; J7120; J7620; Q9967

== ENCOUNTER 2023-12-11 14:20 | Outpatient (CLI) | payer MEDICARE, OTHER, SELFPAY ==
[2023-12-11 19:07] LABS: Alanine Aminotransferase 21 U/L (12-78); Albumin/Globulin Ratio 1.3 (1.1-1.8); Alkaline Phosphatase 84 U/L (38-126); Anion Gap 12.7 mEq/L (5-15); Aspartate Amino Transferase 26 U/L (17-59); Bilirubin,Total 0.4 mg/dl (0.2-1.3); Blood Urea Nitrogen 11 mg/dl (9-20); Carbon Dioxide 28 mmol/L (22.0-30.0); Chloride 94 mmol/L (98-107); Estimated Glomerular Filt Rate 67 ml/min (>60); GFR (African American) 81 ML/MIN (>60); Globulin 3.1 g/dL (1.3-3.2); Glucose 204 mg/dl (74-100); Potassium 3.7 mmoL/L (3.5-5.1); Sodium 131 mmol/L (136-145); Total Protein,Serum 7.1 g/dl (6.3-8.2)
== END 2023-12-11 23:59 | disposition home or self-care (01) ==
LOC: LAB.DROPOF 12-12 10:40
PROVIDERS: PCP Internal Medicine; Visit Provider Internal Medicine
DX: N28.9 Disorder of kidney and ureter, unspecified (principal)
CPT/HCPCS: 80053

== ENCOUNTER 2023-12-24 11:25 | Emergency (ER) | payer MEDICARE, OTHER, SELFPAY ==
[2023-12-24] VITALS (9 sets, daily range): BP systolic 120–146; BP diastolic 76–82; PULSE 74–89; RESP 16; TEMP 36.9; O2SAT 96–99; BMI 31.5
--- NOTE | 2023-12-24 12:05 | CT_ITS ---
FINAL REPORT TECHNIQUE: IV contrast enhanced exam. This study was performed with techniques to keep radiation doses as low as reasonably achievable (ALARA). Individualized dose reduction techniques using automated exposure control or adjustment of mA and/or kV according to the patient's size were employed. CLINICAL HISTORY: pain, nausea/vomiting COMPARISON: 10/20/2023 FINDINGS: Abdomen: No acute density is seen within the lung bases. There is cholelithiasis. There is minimal left nephrolithiasis. Remaining solid abdominal organs are unremarkable. No bowel obstruction is present. There is no free air. No fluid collection is seen. There is no adenopathy. Pelvis: The appendix is normal. There is mild stranding surrounding the urinary bladder wall which may represent cystitis. The bladder is decompressed. No bowel wall thickening is present. There is no free fluid. No pelvic mass is seen. IMPRESSION: Possible cystitis. No evidence of upper urinary tract obstruction. Cholelithiasis without acute gallbladder disease. Reviewed, Interpreted and Dictated by Laney Fowler MD Transcribed by Siri Martinez Authenticated and [facility]
--- NOTE | 2023-12-24 12:05 | CT_ITS ---
FINAL REPORT TECHNIQUE: Thin section axial CT with contrast with multiplanar reconstruction CLINICAL HISTORY: L chest pain, nausea/vomiting COMPARISON: CT chest dated 11/23/2023, 04/12/2023 FINDINGS: There is marked enlargement of the left thyroid lobe exceeding 8 cm. This is similar to the prior exam and has significant mass effect on the trachea. Pulmonary vessels enhance in normal fashion without evidence of embolism. 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 This is unchanged compared to the prior exam. A 10 mm nodule is seen in the left lower lobe. This was probably present on the exam from April 2023 but was obscured by infiltrates. The right lung is clear. There is no significant pleural effusion. There is no significant pericardial effusion. No mediastinal or hilar adenopathy is present. IMPRESSION: No acute findings. Chronic changes as above. Reviewed, Interpreted and Dictated by Laney Fowler MD Transcribed by Siri Martinez Authenticated and [facility]
[2023-12-24 12:14] LABS: Basophils # 0.1 K/mm3 (0-0.2); Basophils % 0.7 % (0.1-2.0); Eosinophils # 0.1 K/mm3 (0.0-0.4); Eosinophils % 0.6 % (0.1-12.0); Hematocrit 36.9 % (42.0-52.0); Hemoglobin 11.8 g/dL (14.1-18.0); Lymphocytes # 2.7 K/mm3 (0.7-4.5); Lymphocytes % 31.1 % (10-50); Mean Corpuscular Hemoglobin 24.6 pg (27.0-31.2); Mean Platelet Volume 8.5 fl (7.4-10.4); Monocytes # 0.6 K/mm3 (0.1-1.0); Monocytes % 7.5 % (1.7-9.3); Neutrophils # 5.1 K/mm3 (1.8-7.8); Platelet Count 356 K/mm3 (142-424); Red Blood Count 4.79 M/mm3 (4.60-6.20); Red Cell Distribution Width 16.3 % (11.5-17.5); White Blood Count 8.5 K/mm3 (4.8-10.8)
[2023-12-24 12:15] LABS: Chloride 101 mmol/L (98-107); Sodium 139 mmol/L (136-145)
--- NOTE | 2023-12-24 12:16 | ECG_ITS ---
APPROVED REPORT Exam: Resting ECG HR:80 bpm ECG Measurements Heart Rate 80 AXES LA 165 P 20 QRSd 98 QRS -28 QT 380 T 14 QTc 416 Conclusion SINUS RHYTHM VOLTAGE CRITERIA FOR LVH [MEETS CRITERIA IN ONE OF: R(aVL), S(V1), R(V5), R(V5/V6)+S(V1)] POSSIBLE ANTERIOR MYOCARDIAL INFARCTION , OF INDETERMINATE AGE [30 ms Q WAVE IN V3/V4, OR R < 0.2 mV IN V4] ABNORMAL ECG Electronically signed by : GILBERT REECE, 12/24/2023 16:56:50
[2023-12-24] MEDS: ONDANSETRON 4MG/2ML VIAL 4 MG IV (12:17)
[2023-12-24] MEDS: RINGERS SOLUTION,LACTATED 500 ML 999 ML IV (12:17)
[2023-12-24] MEDS: ACETAMINOPHEN 1,000MG/100ML VIAL 1000 MG IV (12:17)
[2023-12-24 12:18] LABS: Alanine Aminotransferase 31 U/L (12-78); Albumin Level 4.3 g/dl (3.5-5.0); Albumin/Globulin Ratio 1.2 (1.1-1.8); Alkaline Phosphatase 88 U/L (38-126); Aspartate Amino Transferase 35 U/L (17-59); Bilirubin,Total 0.5 mg/dl (0.2-1.3); Blood Urea Nitrogen 10 mg/dl (9-20); Calcium 9.7 mg/dl (8.4-10.2); Carbon Dioxide 27 mmol/L (22.0-30.0); Creatinine Clearance Estimated 79 mL/min (50-200); Estimated Glomerular Filt Rate 55 ml/min (>60); GFR (African American) 67 ML/MIN (>60); Globulin 3.6 g/dL (1.3-3.2); Glucose 134 mg/dl (74-100); Lipase 109 U/L (23-300); Total Protein,Serum 7.9 g/dl (6.3-8.2)
--- NOTE | 2023-12-24 12:21 | ED_ITS ---
Discharge Plan Disposition Patient Disposition: Home, Self-Care Condition: Good Prescriptions Prescriptions: New sulfamethoxazole-trimethoprim [Bactrim DS] 800-160 mg tablet 1 tab PO BID 10 Days Qty: 20 0RF ondansetron 4 mg tablet,disintegrating 4 mg PO Q8H PRN (Reason: nausea and vomiting) 4 Days Qty: 12 0RF No Action Ozempic 2 mg/dose (8 mg/3 mL) pen injector 2 mg SQ WEEKLY allopurinol 300 mg tablet 300 mg PO DAILY 90 Days Qty: 90 3RF atorvastatin 40 mg tablet 40 mg PO HS 90 Days Qty: 90 2RF isosorbide mononitrate 60 mg tablet extended release 24 hr 60 mg PO DAILY 90 Days Qty: 90 2RF montelukast 10 mg tablet 10 mg PO DAILY 90 Days Qty: 90 2RF nitroglycerin 0.4 mg tablet, sublingual 0.4 mg SUBLINGUAL Q5MINP PRN (Reason: chest pain) Qty: 90 0RF oxybutynin chloride 15 mg tablet extended release 24hr 15 mg PO DAILY 90 Days Qty: 90 2RF potassium chloride 20 mEq tablet extended release 20 meq PO DAILY 90 Days Qty: 90 2RF rivaroxaban 15 mg tablet 15 mg PO QPMWITHMEAL 90 Days Qty: 90 2RF tamsulosin 0.4 mg capsule 0.8 mg PO HS 90 Days Qty: 180 3RF insulin lispro 100 unit/mL insulin pen 25 unit SQ AC 60 Days Qty: 15 2RF budesonide 90 mcg/actuation aerosol powdr breath activated 1 inh inhalation BID 30 Days Qty: 1 4RF topiramate [Topamax] 25 mg tablet 75 mg PO BID oxycodone 10 mg tablet 10 mg PO Q6H PRN (Reason: pain) Qty: 120 0RF oxycodone 10 mg tablet 10 mg PO Q6HP PRN (Reason: chronic pain) Qty: 120 0RF sennosides [senna] 8.6 mg tablet PO Patient Comments: TAKE ONE TABLET BY MOUTH TWICE DAILY spironolactone 25 mg tablet PO Patient Comments: TAKE ONE TABLET BY MOUTH TWICE DAILY FOR FLUID methenamine hippurate 1 gram tablet PO Patient Comments: TAKE ONE TABLET BY MOUTH EVERY DAY topiramate 50 mg tablet PO Patient Comments: TAKE ONE TABLET BY MOUTH TWICE DAILY [employer] HypoPen 1-Pack 1 mg/0.2 mL auto-injector SQ Patient Comments: INJECT 1 MG SUBCUTANEOUSLY NEEDED FOR extreme hypoglycemia furosemide [Lasix] 40 mg tablet 40 mg PO DAILY PRN (Reason: edema) Qty: 30 5RF metoprolol succinate 25 mg tablet extended release 24 hr 25 mg PO BID Qty: 180 3RF aripiprazole 5 mg tablet 5 mg PO DAILY Qty: 90 1RF diazepam 5 mg tablet 5 mg PO TID 90 Days Qty: 270 2RF furosemide 40 mg tablet 40 mg PO DAILY Qty: 90 4RF nystatin 100,000 unit/gram powder 1 applic topical BID Qty: 60 2RF ranolazine 500 mg tablet extended release 12 hr 500 mg PO Q12H Qty: 180 1RF Rx Instructions: do not break, crush, or chew tablet(s) trazodone 100 mg tablet 100 mg PO HS Qty: 30 0RF aspirin 81 mg tablet,chewable 81 mg PO DAILY sennosides-docusate sodium [Stimulant Laxative Plus] 8.6-50 mg Tablet 1 tab PO BID 30 Days Qty: 60 0RF sulfamethoxazole-trimethoprim [Bactrim DS] 800-160 mg tablet 1 tab PO BID 5 Days Qty: 10 0RF albuterol sulfate [Ventolin HFA] 90 mcg/actuation HFA aerosol inhaler 2 inh INHALATION Q4HP PRN (Reason: Shortness Of Breath) Patient Comments: INHALE 2 PUFFS BY MOUTH EVERY 4 TO 6 HOURS NEEDED FOR SHORTNESS OF BREATH OR WHEEZING insulin glargine [Basaglar KwikPen U-100 Insulin] 100 unit/mL (3 mL) insulin pen 80 unit SQ DAILY Patient Comments: ADMINISTER 70 UNITS UNDER THE SKIN EVERY MORNING levothyroxine 175 mcg tablet 175 mcg PO DAILYDM pantoprazole 40 mg tablet,delayed release (DR/EC) 40 mg PO DAILY escitalopram oxalate 10 mg tablet 10 mg PO DAILY pregabalin 100 mg capsule 100 mg PO TID Referrals Follow up/Referrals: Provider,Referral, MD [Primary Care Provider] - See instructions Activity Restrictions/Add. Instructions Additional Instructions/Restrictions: You were evaluated in the emergency department today. You were diagnosed with a urinary tract infection. Please order picker your prescription for antibiotic and take the full course as prescribed. See attached handout for Rodriguez catheter care. supervisor car and yard your prescription for Zofran and take as needed for nausea and vomiting. Please follow-up closely with your primary care provider and whoever manages your Rodriguez catheter. Return to the emergency department for new or worsening symptoms. Clinical Impressions Clinical Impression: Nausea & vomiting Catheter-associated urinary tract infection Qualifiers: Indwelling urinary catheter type: unspecified Encounter type: subsequent encounter Qualified Code(s): T83.511D - Infection and inflammatory reaction due to indwelling urethral catheter, subsequent encounter Instructions Patient Instructions: How to Care for Your Rodriguez Catheter -- Male, DI for Urinary Tract Infection (UTI), DI for Nausea -- Adult Discharge ED Provider: Estephania Campa General Adult HPI General Chief complaint: Nausea/Vomiting/Diarrhea Stated complaint: Weakness Time Seen by Provider: 12/24/23 11:56 Mode of Arrival: EMS Source of Information: Patient Limitations: No Limitations Description of Symptoms (Recalled from ER Triage Doc. by RN): pt reports he has been vomting since sunday, but has not vomited today. C/O left lung pain and no appetite. History of Present Illness HPI narrative: This patient is a 68-year-old male with a history of cauda equina syndrome/paralysis with wheelchair dependence, chronic indwelling Rodriguez catheter, hypertension, hyperlipidemia, COPD, CKD, and CHF presenting to the emergency department for evaluation with concern for left lung pain, nausea, and vomiting. Patient reports that this is been going on since Sunday. He states has not been able to eat or drink very much secondary to the nausea and vomiting. He also states his left lung hurts and he feels slightly short of air, but denies increasing cough or congestion. He did have subjective fever yesterday. He denies significant abdominal pain. He also states that his urine output has been fine and his Rodriguez catheter. No other concerns noted at this time. Related Data Home Medications Medication Instructions Recorded Confirmed aspirin 81 mg chewable tablet 81 mg PO DAILY 03/29/23 12/11/23 albuterol sulfate 90 mcg/actuation 2 inh inhalation Q4HP PRN 05/12/23 12/11/23 aerosol inhaler (Ventolin HFA) Shortness Of Breath insulin glargine 100 unit/mL (3 80 unit SQ DAILY Diabetes 05/12/23 12/11/23 mL) subcutaneous pen (Basaglar KwikPen U-100 Insulin) semaglutide 2 mg/dose (8 mg/3 mL) 2 mg SQ WEEKLY 06/14/23 12/11/23 subcutaneous pen injector (Ozempic) escitalopram oxalate 10 mg tablet 10 mg PO DAILY 10/20/23 12/11/23 levothyroxine 175 mcg tablet 175 mcg PO DAILYDM 10/20/23 12/11/23 pantoprazole 40 mg tablet,delayed 40 mg PO DAILY 10/20/23 12/11/23 release pregabalin 100 mg capsule 100 mg PO TID 10/20/23 12/11/23 glucagon 1 mg/0.2 mL subcutaneous mg SQ 12/11/23 12/11/23 auto-injector ([employer] HypoPen 1-Pack) methenamine hippurate 1 gram tablet g PO 12/11/23 12/11/23 sennosides 8.6 mg tablet (senna) mg PO 12/11/23 12/11/23 spironolactone 25 mg tablet mg PO 12/11/23 12/11/23 topiramate 25 mg tablet (Topamax) 75 mg PO BID tremor 12/11/23 12/11/23 topiramate 50 mg tablet mg PO 12/11/23 12/11/23 Previous Rx's Medication Instructions Recorded allopurinol 300 mg tablet 300 mg PO DAILY Gout 90 days #90 04/17/23 tabs atorvastatin 40 mg tablet 40 mg PO HS Cholesterol 90 days 04/17/23 #90 tabs budesonide 90 mcg/actuation breath 1 inh inhalation BID 30 days #1 ea 04/17/23 activated powder inhaler insulin lispro 100 unit/mL 25 unit (0.25 mL) SQ AC Diabetes 04/17/23 subcutaneous pen 60 days #15 mL isosorbide mononitrate 60 mg 60 mg PO DAILY High Blood Pressure 04/17/23 tablet,extended release 24 hr 90 days #90 tabs montelukast 10 mg tablet 10 mg PO DAILY allergies 90 days 04/17/23 #90 tabs nitroglycerin 0.4 mg sublingual 0.4 mg sublingual Q5MINP PRN chest 04/17/23 tablet pain #90 tabs oxybutynin chloride 15 mg 15 mg PO DAILY Bladder 90 days #90 04/17/23 tablet,extended release 24 hr tabs potassium chloride 20 mEq 20 meq PO DAILY Supplement 90 days 04/17/23 tablet,extended release #90 tabs rivaroxaban 15 mg tablet 15 mg PO QPMWITHMEAL Blood 04/17/23 thinner/AFIB 90 days #90 tabs tamsulosin 0.4 mg capsule 0.8 mg (2 x 0.4 mg) PO HS Prostate 04/17/23 90 days #180 caps aripiprazole 5 mg tablet 5 mg PO DAILY Mood #90 tabs 08/20/23 diazepam 5 mg tablet 5 mg PO TID Tremors 90 days #270 09/04/23 tabs furosemide 40 mg tablet 40 mg PO DAILY Fluid #90 tabs 10/31/23 nystatin 100,000 unit/gram topical 1 applic topical BID #60 grams 11/09/23 powder ranolazine 500 mg tablet,extended 500 mg PO Q12H #180 tabs 11/13/23 release,12 hr trazodone 100 mg tablet 100 mg PO HS insomnia #30 tabs 11/14/23 sennosides 8.6 mg-docusate sodium 1 tab PO BID 30 days #60 tabs 11/25/23 50 mg tablet (Stimulant Laxative Plus) sulfamethoxazole 800 1 tab PO BID 5 days #10 tabs 11/25/23 mg-trimethoprim 160 mg tablet (Bactrim DS) furosemide 40 mg tablet (Lasix) 40 mg PO DAILY PRN edema #30 tabs 12/11/23 metoprolol succinate 25 mg 25 mg PO BID #180 tabs 12/11/23 tablet,extended release 24 hr oxycodone 10 mg tablet 10 mg PO Q6H PRN pain #120 tabs 12/11/23 oxycodone 10 mg tablet 10 mg PO Q6HP PRN chronic pain 12/11/23 #120 tabs ondansetron 4 mg disintegrating 4 mg PO Q8H PRN nausea and 12/24/23 tablet vomiting 4 days #12 tabs sulfamethoxazole 800 1 tab PO BID 10 days #20 tabs 12/24/23 mg-trimethoprim 160 mg tablet (Bactrim DS) Allergies Allergy/AdvReac Type Severity Reaction Status Date / Time gabapentin [From Neurontin] Allergy Intermediate Rash Verified 12/11/23 14:19 PFSH PFSH Disclaimer: The information contained in this section may have been updated after the patient was seen, as this information can be updated by other users. Medical History Tachycardia Acute exacerbation of chronic obstructive pulmonary disease Acute urinary retention Chronic pain At risk for osteoporosis Diabetes mellitus type 2 in obese At risk for polypharmacy Pneumonia Healthcare-associated pneumonia Chronic respiratory failure with hypoxia Chronic indwelling Rodriguez catheter Peritracheal mass Acute urinary retention Cauda equina syndrome Paralysis, progressive Encounter for immunization Atypical angina Chest pain Abnormal EKG Edema Leg pain, bilateral SOB (shortness of breath) Chronic systolic heart failure CKD (chronic kidney disease) stage 2, GFR 60-89 ml/min Diabetes mellitus COPD (chronic obstructive pulmonary disease) HLD (hyperlipidemia) HTN (hypertension) Surgical History H/O repair of rotator cuff Family History Other Diabetes Hypertension Stroke Social History Smoking Status: Never smoker alcohol intake: never substance use type: denies use current occupational status: unemployed Travel in the last 8 weeks: None household members: spouse housing: house caffeine: Yes ROS Obtained: Yes All systems reviewed & no additional complaints except as documented Physical Exam General General appearance: alert, in no apparent distress and obese Head Head exam: atraumatic and normocephalic Eye Eye exam: Present normal appearance, PERRL and EOMI ENT ENT exam: Present normal exam, normal oropharynx, mucous membranes moist and normal external ear exam Neck Neck exam: Present normal inspection, full ROM and trachea midline; Absent tenderness Chest Chest inspection: Present normal inspection and symmetric chest wall rise; Absent tenderness Respiratory Respiratory exam: Present normal lung sounds bilaterally; Absent respiratory distress, wheezes, stridor or accessory muscle use Cardiovascular Cardiovascular exam: Present regular rate and normal rhythm Abdominal Exam Abdominal exam: Present soft; Absent distention, tenderness or guarding Extremities Exam Extremities exam: Present normal inspection, full ROM and normal capillary refill; Absent tenderness or edema Back Exam Back exam: Present normal inspection and full ROM; Absent tenderness Neurological Exam Neurological exam: Present alert, oriented X3, CN II-XII intact and other (At his neurologic baseline) Psychiatric Psychiatric exam: Present normal affect and normal mood Skin Skin exam: Present warm and dry Medical Decision Making Medical Records Medical records reviewed: Yes I reviewed the patient's medical records. [place] Inquiry Pt receiving controlled substance: No Vital Signs: 12/24/23 11:26 12/24/23 11:30 12/24/23 12:00 Temperature 98.5 F Temperature Source Oral Pulse Rate 89 82 Pulse Rate [Right Brachial] 88 Respiratory Rate 16 Blood Pressure 121/77 120/80 Blood Pressure [Right Arm] 146/78 H Blood Pressure Mean 91 88 Blood Pressure Mean [Right Arm] 100 02 Sat by Pulse Oximetry 98 97 98 Oxygen Delivery Method Room Air Nasal Cannula Nasal Cannula Oxygen Flow Rate (LPM) 2 2 12/24/23 12:30 12/24/23 13:00 12/24/23 13:30 Temperature Temperature Source Pulse Rate 74 81 79 Pulse Rate [Right Brachial] Respiratory Rate Blood Pressure 131/82 139/76 121/80 Blood Pressure [Right Arm] Blood Pressure Mean 98 94 89 Blood Pressure Mean [Right Arm] 02 Sat by Pulse Oximetry 96 97 98 Oxygen Delivery Method Nasal Cannula Nasal Cannula Room Air Oxygen Flow Rate (LPM) 2 2 12/24/23 14:00 12/24/23 14:30 12/24/23 15:26 Temperature 98.5 F Temperature Source Pulse Rate 82 77 78 Pulse Rate [Right Brachial] Respiratory Rate 16 Blood Pressure 131/82 133/82 127/81 Blood Pressure [Right Arm] Blood Pressure Mean 98 104 Blood Pressure Mean [Right Arm] 02 Sat by Pulse Oximetry 98 99 Oxygen Delivery Method Nasal Cannula Nasal Cannula Nasal Cannula Oxygen Flow Rate (LPM) 2 2 2 Lab Data Lab results reviewed: Yes I reviewed the patient's lab results. Lab Results 12/24/23 11:30: WBC 8.5, RBC 4.79, Hgb 11.8 L, Hct 36.9 L, MCV 77.0 L, MCH 24.6 L, MCHC 32.0, RDW 16.3, Plt Count 356, MPV 8.5, Neut % (Auto) 60.0, Lymph % (Auto) 31.1, [place] % (Auto) 7.5, Eos % (Auto) 0.6, Baso % (Auto) 0.7, Neut # (Auto) 5.1, Lymph # (Auto) 2.7, [place] # (Auto) 0.6, Eos # (Auto) 0.1, Baso # (Auto) 0.1, Sodium 139, Potassium 4.0, Chloride 101, Carbon Dioxide 27, Anion Gap 15.0, BUN 10, Creatinine 1.30 H, Estimated Creat Clear 79, Estimated GFR 55 L, Est GFR ( Amer) 67, Glucose 134 H, Calcium 9.7, Total Bilirubin 0.5, AST 35, ALT 31, Alkaline Phosphatase 88, Troponin I < 0.01, Total Protein 7.9, Albumin 4.3, Globulin 3.6 H, Albumin/Globulin Ratio 1.2, Lipase 109 12/24/23 12:28: Urine Color Yellow, Urine Appearance Turbid, Urine pH 6.0, Ur Specific [place] 1.015, Urine Protein Negative, Urine Glucose (UA) Negative, Urine Ketones Negative, Urine Blood 1+, Urine Nitrate Negative, Urine Bilirubin Negative, Urine Urobilinogen 0.2, Ur Leukocyte Esterase 3+ A, Urine RBC 5-10, Urine WBC 20-50, Ur Squamous Epith Cells Occasional, Urine Bacteria 4+, SARS-CoV-2 (PCR) Not detected, Influenza A Untype (PCR) Not detected, Influenza Type B (PCR) Not detected 12/24/23 11:30 12/24/23 11:30 Orders (Tests/Meds): ED MEDICATIONS Discontinued Medications Generic Name Dose Route Start Last Admin Trade Name Freq PRN Reason Stop Dose Admin Acetaminophen 1,000 mg 12/24/23 12:07 12/24/23 12:17 Acetaminophen 1,000mg/100ml Vial IV 12/24/23 12:08 1,000 mg ONCE ONE Administration Lactated Ringer's 500 mls @ 999 mls/hr 12/24/23 12:07 12/24/23 12:17 Lactated Ringer's 500ml IV 12/24/23 12:37 999 mls/hr .Q31M ONE Administration Ceftriaxone Sodium 2 gm/ 100 mls @ 200 mls/hr 12/24/23 13:46 12/24/23 14:04 Sodium Chloride IV 12/24/23 14:15 200 mls/hr ONCE ONE Administration Iopamidol 150 ml 12/24/23 12:53 12/24/23 12:55 Iopamidol-370 (76%) 150ml Bot IV 12/24/23 12:54 150 ml ONCE ONE Administration Protocol Ondansetron HCl 4 mg 12/24/23 12:07 12/24/23 12:17 Ondansetron 4mg/2ml Vial IV 12/24/23 12:08 4 mg ONCE ONE Administration Sodium Chloride 50 ml 12/24/23 12:53 12/24/23 12:55 0.9 % Sodium Chloride 50 Ml Vial IV 12/24/23 12:54 50 ml ONCE ONE Administration Sodium Chloride 10 ml 12/24/23 12:53 12/24/23 12:55 Sodium Chloride 0.9% 10ml Syr (Rad Only) IV 12/24/23 12:54 10 ml ONCE ONE Administration ORDERS Category Date Time Status CT abdomen pelvis w con Stat Cat Scan 12/24/23 12:05 Completed CTA Chest [CT angio chest PE protocol] Stat Cat Scan 12/24/23 12:05 Completed CBC w/Auto Diff [Complete Blood Count Auto Diff] Stat Lab 12/24/23 11:30 Completed CMP [Comprehensive Metabolic Panel] Stat Lab 12/24/23 11:30 Completed Lipase Stat Lab 12/24/23 11:30 Completed Rapid PCR Covid and Flu A/B Stat Lab 12/24/23 12:28 Completed Trop I [Troponin I] Stat Lab 12/24/23 11:30 Completed Troponin I Q3H Lab 12/24/23 18:15 Ordered UA [Urinalysis and Microscopic] Stat Lab 12/24/23 12:28 Completed Urine Culture Stat Micro 12/24/23 12:28 Received ECG Data Tracing #1: I reviewed this ECG and interpreted as documented below: Normal sinus rhythm with a ventricular rate of [address] changes concerning for ischemia. Normal intervals. ECG initial impression date: 12/24/23 ECG initial impression time: 12:17 Medical Decision Narrative: In summary, this patient is a 68-year-old male who is well-known to the emergency department presenting to the Emergency Department for evaluation of left lung pain, nausea, and vomiting. Differential diagnoses considered include but are not limited to pneumonia, viral syndrome, gastroenteritis, pyelonephritis, dehydration. Ruling out the most morbid conditions drove assessment. It should be noted patient's history includes extensive history as noted in HPI which may or may not be at goal therapy. This complicates all aspects of care by increasing patient's risk for morbidity. I reviewed patient's past medical records and noted multiple previous evaluations for various complaints over the last several weeks. On exam, the patient is sitting in bed in no acute distress with reassuring cardiopulmonary and abdominal exams. He is at his neurologic baseline. Workup included CBC, CMP, lipase, urinalysis, troponin, EKG, CTA PE protocol, and CT abdomen and pelvis with IV contrast. He was given a 500cc bolus of IV fluids as well as IV acetaminophen and Zofran for symptomatic improvement. I independently interpreted CT scan prior to the radiologist read and noted no obvious bowel obstruction, no obvious pneumonia, no obvious PE. Please see their read for final interpretation. Labs were obtained that demonstrated concerns for urinary tract infection. It is possible the patient is just colonized at this point with chronic indwelling Rodriguez catheter, however I did review prior cultures which demonstrated E. coli that is sensitive to Bactrim. Will treat as complicated catheter associated urinary tract infection with IV Rocephin here and then Bactrim to take at home. Labs and CT scans otherwise reassuring without other acutely concerning abnormalities. Exam is reassuring and he is tolerating oral intake. At this time, I feel the patient is appropriate for discharge home with prescription for Bactrim and instructions for close follow-up with his primary care provider and urologist. His Rodriguez catheter was changed prior to discharge. Patient was given strict return precautions and he was discharged after all questions were answered. Critical Care Critical Care Time Critical Care Time: No
[2023-12-24 12:32] LABS: Troponin I < 0.01 ng/ml (0.00-0.034)
[2023-12-24 12:35] LABS: Coronavirus 19, PCR Not Detected (NotDetected); Influenza A, PCR Not Detected (NotDetected); Influenza B, PCR Not Detected (NotDetected); Microscopic, Urine URINE MICROSCOPIC (MICROSCOPIC)
[2023-12-24 12:38] LABS: Appearance,Urine TURBID (Clear); Bilirubin,Urine Negative (Negative); Blood, Urine 1+ (Negative); Color,Urine YELLOW (Yellow); Glucose,Urine (UA) Negative (Negative); Ketones,Urine Negative (Negative); Leukocyte Esterase,Urine 3+ (Negative); Nitrate,Urine Negative (Negative); Protein,Urine Negative (Negative); Specific Gravity, Urine 1.015 (1.005-1.030); Urobilinogen,Urine 0.2 EU/dl (0.2)
--- NOTE | 2023-12-24 12:45 | PC.NURSE ---
pt to CT
[2023-12-24] MEDS: 0.9 % SODIUM CHLORIDE 50 ML VIAL IV (12:55)
[2023-12-24] MEDS: SODIUM CHLORIDE 0.9% 10ML SYR (RAD ONLY) 10 ML IV (12:55)
[2023-12-24] MEDS: IOPAMIDOL 150 ML IV (12:55)
--- NOTE | 2023-12-24 12:59 | PC.NURSE ---
Returned from CT
[2023-12-24 13:11] LABS: Bacteria,Urine 4+ /lpf; Squamous Epithelial Cell,Urine Occasional #/hpf (0-5); WBC,Urine 20-50 #/hpf (0-3)
[2023-12-24] MEDS: CEFTRIAXONE SODIUM 2 GM in 0.9 % SODIUM CHLORIDE 100 ML IV (14:04)
--- NOTE | 2023-12-27 12:51 | PC.NURSE ---
DISCUSSED URINE CULTURE WITH DR KEENE. PT ON APPROPRIATE ABX. NO NEW ORDERS
== END 2023-12-24 15:29 | disposition home or self-care (01) ==
PROVIDERS: Emergency Provider Emergency Medicine
DX: T83.511A Infection and inflammatory reaction due to indwelling urethral catheter, initial encounter (principal); B96.5 Pseudomonas (aeruginosa) (mallei) (pseudomallei) as the cause of diseases classified elsewhere; B95.2 Enterococcus as the cause of diseases classified elsewhere; R11.2 Nausea with vomiting, unspecified; R07.81 Pleurodynia; J44.9 Chronic obstructive pulmonary disease, unspecified; I11.0 Hypertensive heart disease with heart failure; I50.22 Chronic systolic (congestive) heart failure; N18.9 Chronic kidney disease, unspecified; E11.22 Type 2 diabetes mellitus with diabetic chronic kidney disease; R53.2 Functional quadriplegia; Z79.4 Long term (current) use of insulin; Z79.85 Long-term (current) use of injectable non-insulin antidiabetic drugs; I12.9 Hypertensive chronic kidney disease with stage 1 through stage 4 chronic kidney disease, or unspecified chronic kidney disease
CPT/HCPCS: 71275; 74177; 80053; 81001; 83690; 84484; 85025; 87086; 87088; 87186; 87636; 93005; 96365; 96375; 99285; J0131; J0696; J2405; J7120

== ENCOUNTER 2023-12-31 16:51 | Inpatient (IN) | payer MEDICARE, OTHER, SELFPAY ==
[2023-12-31] VITALS (8 sets, daily range): BP systolic 103–140; BP diastolic 71–76; PULSE 75–90; RESP 17–20; TEMP 36.6–36.8; O2SAT 92–100; BMI 31.1; BMI 29.7
--- NOTE | 2023-12-31 16:54 | ED_ITS ---
<Statement entered by Estephania Campa DO - 12/31/23 20:22> I was consulted by the GINGER, and we discussed the complexity of the problems being addressed. I approved the treatment and management plan for this patient's care in the emergency department, thus performing a substantive portion of the medical decision making. Estephania Campa DO Discharge Plan Disposition Patient Disposition: Admitted Condition: Good Chief Complaint: Nausea/Vomiting/Diarrhea Prescriptions Prescriptions: No Action Ozempic 2 mg/dose (8 mg/3 mL) pen injector 2 mg SQ WEEKLY allopurinol 300 mg tablet 300 mg PO DAILY 90 Days Qty: 90 3RF atorvastatin 40 mg tablet 40 mg PO HS 90 Days Qty: 90 2RF isosorbide mononitrate 60 mg tablet extended release 24 hr 60 mg PO DAILY 90 Days Qty: 90 2RF montelukast 10 mg tablet 10 mg PO DAILY 90 Days Qty: 90 2RF nitroglycerin 0.4 mg tablet, sublingual 0.4 mg SUBLINGUAL Q5MINP PRN (Reason: chest pain) Qty: 90 0RF oxybutynin chloride 15 mg tablet extended release 24hr 15 mg PO DAILY 90 Days Qty: 90 2RF potassium chloride 20 mEq tablet extended release 20 meq PO DAILY 90 Days Qty: 90 2RF rivaroxaban 15 mg tablet 15 mg PO QPMWITHMEAL 90 Days Qty: 90 2RF tamsulosin 0.4 mg capsule 0.8 mg PO HS 90 Days Qty: 180 3RF insulin lispro 100 unit/mL insulin pen 25 unit SQ AC 60 Days Qty: 15 2RF budesonide 90 mcg/actuation aerosol powdr breath activated 1 inh inhalation BID 30 Days Qty: 1 4RF topiramate [Topamax] 25 mg tablet 75 mg PO BID oxycodone 10 mg tablet 10 mg PO Q6H PRN (Reason: pain) Qty: 120 0RF oxycodone 10 mg tablet 10 mg PO Q6HP PRN (Reason: chronic pain) Qty: 120 0RF sennosides [senna] 8.6 mg tablet PO Patient Comments: TAKE ONE TABLET BY MOUTH TWICE DAILY spironolactone 25 mg tablet PO Patient Comments: TAKE ONE TABLET BY MOUTH TWICE DAILY FOR FLUID methenamine hippurate 1 gram tablet PO Patient Comments: TAKE ONE TABLET BY MOUTH EVERY DAY topiramate 50 mg tablet PO Patient Comments: TAKE ONE TABLET BY MOUTH TWICE DAILY Gvoke HypoPen 1-Pack 1 mg/0.2 mL auto-injector SQ Patient Comments: INJECT 1 MG SUBCUTANEOUSLY NEEDED FOR extreme hypoglycemia furosemide [Lasix] 40 mg tablet 40 mg PO DAILY PRN (Reason: edema) Qty: 30 5RF metoprolol succinate 25 mg tablet extended release 24 hr 25 mg PO BID Qty: 180 3RF aripiprazole 5 mg tablet 5 mg PO DAILY Qty: 90 1RF diazepam 5 mg tablet 5 mg PO TID 90 Days Qty: 270 2RF furosemide 40 mg tablet 40 mg PO DAILY Qty: 90 4RF nystatin 100,000 unit/gram powder 1 applic topical BID Qty: 60 2RF ranolazine 500 mg tablet extended release 12 hr 500 mg PO Q12H Qty: 180 1RF Rx Instructions: do not break, crush, or chew tablet(s) trazodone 100 mg tablet 100 mg PO HS Qty: 30 0RF promethazine 25 mg suppository 25 mg ME Q6H PRN (Reason: nausea and vomiting) Qty: 12 2RF aspirin 81 mg tablet,chewable 81 mg PO DAILY sennosides-docusate sodium [Stimulant Laxative Plus] 8.6-50 mg Tablet 1 tab PO BID 30 Days Qty: 60 0RF sulfamethoxazole-trimethoprim [Bactrim DS] 800-160 mg tablet 1 tab PO BID 5 Days Qty: 10 0RF sulfamethoxazole-trimethoprim [Bactrim DS] 800-160 mg tablet 1 tab PO BID 10 Days Qty: 20 0RF ondansetron 4 mg tablet,disintegrating 4 mg PO Q8H PRN (Reason: nausea and vomiting) 4 Days Qty: 12 0RF albuterol sulfate [Ventolin HFA] 90 mcg/actuation HFA aerosol inhaler 2 inh INHALATION Q4HP PRN (Reason: Shortness Of Breath) Patient Comments: INHALE 2 PUFFS BY MOUTH EVERY 4 TO 6 HOURS NEEDED FOR SHORTNESS OF BREATH OR WHEEZING insulin glargine [Basaglar KwikPen U-100 Insulin] 100 unit/mL (3 mL) insulin pen 80 unit SQ DAILY Patient Comments: ADMINISTER 70 UNITS UNDER THE SKIN EVERY MORNING levothyroxine 175 mcg tablet 175 mcg PO DAILYDM pantoprazole 40 mg tablet,delayed release (DR/EC) 40 mg PO DAILY escitalopram oxalate 10 mg tablet 10 mg PO DAILY pregabalin 100 mg capsule 100 mg PO TID Referrals Follow up/Referrals: Paulo Brody DO [Primary Care Provider] - See instructions Clinical Impressions Clinical Impression: Hyponatremia, Nausea vomiting and diarrhea Print Language Print Language: Divehi Discharge ED Provider: Estephania Campa General Adult HPI General Chief complaint: Nausea/Vomiting/Diarrhea Stated complaint: poss uti Time Seen by Provider: 12/31/23 16:53 History of Present Illness HPI narrative: Patient presents for evaluation of nausea and vomiting. Patient reports that he is not had nor been able to keep anything down since December 19. Patient is an insulin-dependent diabetic and and reports that he is intolerant of solid or liquid intake orally. Patient also reports loose stool but no abdominal pain chest pain shortness of breath fever chills hemoptysis hematochezia melena hematemesis hematuria. Patient has a chronic indwelling Rodriguez catheter. Related Data Home Medications ?Medication ?Instructions ?Recorded ?Confirmed aspirin 81 mg chewable tablet 81 mg PO DAILY 03/29/23 12/11/23 albuterol sulfate 90 mcg/actuation 2 inh inhalation Q4HP PRN 05/12/23 12/11/23 aerosol inhaler (Ventolin HFA) Shortness Of Breath insulin glargine 100 unit/mL (3 80 unit SQ DAILY Diabetes 05/12/23 12/11/23 mL) subcutaneous pen (Basaglar KwikPen U-100 Insulin) semaglutide 2 mg/dose (8 mg/3 mL) 2 mg SQ WEEKLY 06/14/23 12/11/23 subcutaneous pen injector (Ozempic) escitalopram oxalate 10 mg tablet 10 mg PO DAILY 10/20/23 12/11/23 levothyroxine 175 mcg tablet 175 mcg PO DAILYDM 10/20/23 12/11/23 pantoprazole 40 mg tablet,delayed 40 mg PO DAILY 10/20/23 12/11/23 release pregabalin 100 mg capsule 100 mg PO TID 10/20/23 12/11/23 glucagon 1 mg/0.2 mL subcutaneous mg SQ 12/11/23 12/11/23 auto-injector (Gvoke HypoPen 1-Pack) methenamine hippurate 1 gram tablet g PO 12/11/23 12/11/23 sennosides 8.6 mg tablet (senna) mg PO 12/11/23 12/11/23 spironolactone 25 mg tablet mg PO 12/11/23 12/11/23 topiramate 25 mg tablet (Topamax) 75 mg PO BID tremor 12/11/23 12/11/23 topiramate 50 mg tablet mg PO 12/11/23 12/11/23 Previous Rx's ?Medication ?Instructions ?Recorded allopurinol 300 mg tablet 300 mg PO DAILY Gout 90 days #90 04/17/23 tabs atorvastatin 40 mg tablet 40 mg PO HS Cholesterol 90 days 04/17/23 #90 tabs budesonide 90 mcg/actuation breath 1 inh inhalation BID 30 days #1 ea 04/17/23 activated powder inhaler insulin lispro 100 unit/mL 25 unit (0.25 mL) SQ AC Diabetes 04/17/23 subcutaneous pen 60 days #15 mL isosorbide mononitrate 60 mg 60 mg PO DAILY High Blood Pressure 04/17/23 tablet,extended release 24 hr 90 days #90 tabs montelukast 10 mg tablet 10 mg PO DAILY allergies 90 days 04/17/23 #90 tabs nitroglycerin 0.4 mg sublingual 0.4 mg sublingual Q5MINP PRN chest 04/17/23 tablet pain #90 tabs oxybutynin chloride 15 mg 15 mg PO DAILY Bladder 90 days #90 04/17/23 tablet,extended release 24 hr tabs potassium chloride 20 mEq 20 meq PO DAILY Supplement 90 days 04/17/23 tablet,extended release #90 tabs rivaroxaban 15 mg tablet 15 mg PO QPMWITHMEAL Blood 04/17/23 thinner/AFIB 90 days #90 tabs tamsulosin 0.4 mg capsule 0.8 mg (2 x 0.4 mg) PO HS Prostate 04/17/23 90 days #180 caps aripiprazole 5 mg tablet 5 mg PO DAILY Mood #90 tabs 08/20/23 diazepam 5 mg tablet 5 mg PO TID Tremors 90 days #270 09/04/23 tabs furosemide 40 mg tablet 40 mg PO DAILY Fluid #90 tabs 10/31/23 nystatin 100,000 unit/gram topical 1 applic topical BID #60 grams 11/09/23 powder ranolazine 500 mg tablet,extended 500 mg PO Q12H #180 tabs 11/13/23 release,12 hr trazodone 100 mg tablet 100 mg PO HS insomnia #30 tabs 11/14/23 sennosides 8.6 mg-docusate sodium 1 tab PO BID 30 days #60 tabs 11/25/23 50 mg tablet (Stimulant Laxative Plus) sulfamethoxazole 800 1 tab PO BID 5 days #10 tabs 11/25/23 mg-trimethoprim 160 mg tablet (Bactrim DS) furosemide 40 mg tablet (Lasix) 40 mg PO DAILY PRN edema #30 tabs 12/11/23 metoprolol succinate 25 mg 25 mg PO BID #180 tabs 12/11/23 tablet,extended release 24 hr oxycodone 10 mg tablet 10 mg PO Q6H PRN pain #120 tabs 12/11/23 oxycodone 10 mg tablet 10 mg PO Q6HP PRN chronic pain 12/11/23 #120 tabs ondansetron 4 mg disintegrating 4 mg PO Q8H PRN nausea and 12/24/23 tablet vomiting 4 days #12 tabs sulfamethoxazole 800 1 tab PO BID 10 days #20 tabs 12/24/23 mg-trimethoprim 160 mg tablet (Bactrim DS) promethazine 25 mg rectal 25 mg ME Q6H PRN nausea and 12/28/23 suppository vomiting #12 ea Allergies Allergy/AdvReac Type Severity Reaction Status Date / Time gabapentin [From Neurontin] Allergy Intermediate Rash Verified 12/11/23 14:19 [facility] Disclaimer: The information contained in this section may have been updated after the patient was seen, as this information can be updated by other users. Medical History Tachycardia Acute exacerbation of chronic obstructive pulmonary disease Acute urinary retention Chronic pain At risk for osteoporosis Diabetes mellitus type 2 in obese At risk for polypharmacy Pneumonia Healthcare-associated pneumonia Chronic respiratory failure with hypoxia Chronic indwelling Rodriguez catheter Peritracheal mass Acute urinary retention Cauda equina syndrome Paralysis, progressive Encounter for immunization Atypical angina Chest pain Abnormal EKG Edema Leg pain, bilateral SOB (shortness of breath) Chronic systolic heart failure CKD (chronic kidney disease) stage 2, GFR 60-89 ml/min Diabetes mellitus COPD (chronic obstructive pulmonary disease) HLD (hyperlipidemia) HTN (hypertension) Surgical History H/O repair of rotator cuff Family History Other Diabetes Hypertension Stroke Social History Smoking Status: Never smoker alcohol intake: never substance use type: denies use current occupational status: unemployed Travel in the last 8 weeks: None household members: spouse housing: house caffeine: Yes ROS Obtained: Yes Systems reviewed as appropriate & no additional complaints except as documented Physical Exam General General appearance: alert and in no apparent distress Head Head exam: atraumatic and normal inspection Eye Eye exam: Present normal appearance Neck Neck exam: Present normal inspection Chest Chest inspection: Present normal inspection and symmetric chest wall rise Respiratory Respiratory exam: Present normal lung sounds bilaterally Cardiovascular Cardiovascular exam: Present regular rate and normal rhythm Abdominal Exam Abdominal exam: Present soft and normal bowel sounds; Absent tenderness Extremities Exam Extremities exam: Present normal inspection Neurological Exam Neurological exam: Present alert and oriented X3 Psychiatric Psychiatric exam: Present normal affect and normal mood Skin Skin exam: Present warm, dry and normal color Medical Decision Making Medical Records Medical records reviewed: Yes I reviewed the patient's medical records. [place] Inquiry Pt receiving controlled substance: No Vital Signs: 12/31/23 16:57 12/31/23 17:00 12/31/23 18:31 Temperature 97.8 F Temperature Source Oral Pulse Rate 82 83 Pulse Rate [Left Radial] 90 Respiratory Rate 20 Blood Pressure 140/73 116/76 Blood Pressure [Right Arm] 134/74 Blood Pressure Mean 95 94 Blood Pressure Mean [Right Arm] 94 02 Sat by Pulse Oximetry 92 L 95 95 Oxygen Delivery Method Room Air Lab Data Lab results reviewed: Yes I reviewed the patient's lab results. Lab Results 12/31/23 17:05: VBG pH 7.42 H, VBG pCO2 31.3 L, VBG pO2 144.0 H, VBG HCO3 19.6 L , VBG Total CO2 20.6 L, VBG O2 Saturation 98.7 H, VBG Base Excess -4.9 L, VBG Lactic Acid 2.1 H 12/31/23 17:48: WBC 9.3, RBC 3.65 L, Hgb 10.1 L, Hct 26.6 L, MCV 73.0 L, MCH 27.8, MCHC 38.1 H, RDW 16.6, Plt Count 301, MPV 8.4, Neut % (Auto) 63.8, Lymph % (Auto) 26.2, Humphreys % (Auto) 8.8, Eos % (Auto) 0.7, Baso % (Auto) 0.4, Neut # (Auto) 5.9, Lymph # (Auto) 2.4, Humphreys # (Auto) 0.8, Eos # (Auto) 0.1, Baso # (Auto) 0.0, Sodium 120 L, Potassium 4.1, Chloride 87 L, Carbon Dioxide 22, Anion Gap 15.1 H, BUN 18, Creatinine 1.30 H, Estimated Creat Clear 78, Estimated GFR 55 L, Est GFR ( Amer) 67, Glucose 125 H, Calcium 9.1, Magnesium 1.4 L, Total Bilirubin 0.4, AST 36, ALT 23, Alkaline Phosphatase 88, Total Protein 7.7, Albumin 4.5, Globulin 3.2, Albumin/Globulin Ratio 1.4, Lipase 255, Acetone Level None detected 12/31/23 18:49: Urine Color Yellow, Urine Appearance Slightly cloudy, Urine pH 5.5, Ur Specific [place] 1.025, Urine Protein Negative, Urine Glucose (UA) Negative, Urine Ketones Negative, Urine Blood Trace-i, Urine Nitrate Negative, Urine Bilirubin Negative, Urine Urobilinogen 0.2, Ur Leukocyte Esterase 2+ A, Urine RBC Occasional, Urine WBC 20-50, Ur Squamous Epith Cells Occasional, Urine Bacteria Trace, Urine Sodium 20.0 L 12/31/23 17:48 12/31/23 17:48 Orders (Tests/Meds): ED MEDICATIONS Generic Name Dose Route Start Last Admin Trade Name Freq PRN Reason Stop Dose Admin Sodium Chloride 1,000 mls @ 150 mls/hr 12/31/23 18:30 12/31/23 18:41 Sod Chlor 0.9% 1000ml Bag IV 01/01/24 01:09 150 mls/hr .Q6H40M DORYS Administration Sodium Chloride 10 ml 12/31/23 18:54 12/31/23 18:55 Sodium Chloride 0.9% 10ml Syr (Rad Only) IV 01/30/24 18:53 10 ml NEEDED PRN Administration Maintain IV Site Discontinued Medications Generic Name Dose Route Start Last Admin Trade Name Freq PRN Reason Stop Dose Admin Lactated Ringer's 1,000 mls @ 999 mls/hr 12/31/23 17:04 12/31/23 17:34 Lactated Ringer's 1000 Ml Bag IV 12/31/23 18:04 999 mls/hr .Q1H1M ONE Administration Magnesium Sulfate 2 gm in 50 mls @ 50 mls/hr 12/31/23 18:16 12/31/23 18:41 Magnesium Sulfate 2gm/50ml Premix IV 12/31/23 19:15 50 mls/hr ONCE ONE Administration Iopamidol 75 ml 12/31/23 18:54 12/31/23 18:55 Iopamidol-370 (76%);100ml Bottle IV 12/31/23 18:55 75 ml ONCE ONE Administration Ondansetron HCl 4 mg 12/31/23 17:04 12/31/23 17:34 Ondansetron 4mg/2ml Vial IV 12/31/23 17:05 4 mg ONCE ONE Administration Tetanus/Reduced Diphtheria/Acell Pertussis 0.5 ml 12/31/23 17:35 12/31/23 18:12 Tet/Diphth/Pert-Adult 0.5ml Syringe IM 12/31/23 17:36 Not Given .ONCE ONE ORDERS Category Date Time Status CT abdomen pelvis w con Stat Cat Scan 12/31/23 18:40 Completed Acetone, Serum (Rapid) Stat Lab 12/31/23 17:48 Completed Basic Metabolic Panel Timed Lab 12/31/23 23:00 Ordered CBC w/Auto Diff [Complete Blood Count Auto Diff] Stat Lab 12/31/23 17:48 Completed CMP [Comprehensive Metabolic Panel] Stat Lab 12/31/23 17:48 Completed Complete Blood Count Auto Diff AMLAB Lab 01/01/24 06:00 Ordered Comprehensive Metabolic Panel AMLAB Lab 01/01/24 06:00 Ordered Lipase Stat Lab 12/31/23 17:48 Completed Magnesium AMLAB Lab 01/01/24 06:00 Ordered Magnesium Stat Lab 12/31/23 17:48 Completed Sodium,Urine Random Routine Lab 12/31/23 18:49 Completed UA [Urinalysis and Microscopic] Stat Lab 12/31/23 18:49 Completed Urine Culture Stat Micro 12/31/23 18:49 Received VBG [Venous Blood Gas] Stat RT 12/31/23 17:05 Completed Medical Decision Narrative: In summary patient is a in summary patient is a 68-year-old male who presents to the emergency department for evaluation of nausea vomiting diarrhea. Patient is hemodynamically stable upon arrival, afebrile. Physical exam is remarkable for paraplegia secondary to cauda equina syndrome but otherwise is nonfocal and unremarkable. Patient has normal bowel sounds his abdomen is soft and nontender. Urine in his Rodriguez catheter appears to be straw-colored and clear. Differential diagnosis includes gastroenteritis versus infectious diarrhea versus functional diarrhea versus gastric outlet obstruction versus gastroparesis etc. Initial workup will be conducted with hematologic labs urinalysis.. Initial interventions include crystalloid bolus Zofran. Initial workup reviewed by me shows that patient has a significant hyponatremia with a sodium of 120 that is a 19 point drop from 5 days ago urinalysis shows pyuria but only trace bacteria and CT scan of the abdomen pelvis via my informal interpretation shows no acute process but does show significant stool burden. Upon repeat evaluation still reports that he is nauseated but he has had no vomiting or diarrhea while in the ER. Given this I had a interact discussion with hospital medicine about patient management and who has agreed for admission for further evaluation and care. Critical Care Critical Care Time Critical Care Time: No
[2023-12-31] MEDS: ONDANSETRON 4MG/2ML VIAL 4 MG IV (17:34)
[2023-12-31] MEDS: LACTATED RINGERS 1000ML 1,000 ML 999 ML IV (17:34)
[2023-12-31 17:59] LABS: Basophils % 0.4 % (0.1-2.0); Eosinophils # 0.1 K/mm3 (0.0-0.4); Eosinophils % 0.7 % (0.1-12.0); Hematocrit 26.6 % (42.0-52.0); Hemoglobin 10.1 g/dL (14.1-18.0); Lymphocytes # 2.4 K/mm3 (0.7-4.5); Lymphocytes % 26.2 % (10-50); Mean Corpuscular HGB Conc 38.1 g/dL (31.8-35.4); Mean Corpuscular Hemoglobin 27.8 pg (27.0-31.2); Mean Platelet Volume 8.4 fl (7.4-10.4); Monocytes # 0.8 K/mm3 (0.1-1.0); Monocytes % 8.8 % (1.7-9.3); Neutrophils # 5.9 K/mm3 (1.8-7.8); Neutrophils % 63.8 % (37.0-80.0); Platelet Count 301 K/mm3 (142-424); Red Blood Count 3.65 M/mm3 (4.60-6.20); Red Cell Distribution Width 16.6 % (11.5-17.5); White Blood Count 9.3 K/mm3 (4.8-10.8)
[2023-12-31 18:05] LABS: Albumin Level 4.5 g/dl (3.5-5.0); Chloride 87 mmol/L (98-107); Potassium 4.1 mmoL/L (3.5-5.1); Sodium 120 mmol/L (136-145)
[2023-12-31 18:05] LABS: VBG Base Excess -4.9 mmol/L (-2.4-2.3); VBG HCO3 19.6 mmol/L (23-30); VBG Oxygen Saturation 98.7 % (50-70); VBG PCO2 31.3 mmol/L (35-51); VBG PH 7.42 mmol/L (7.31-7.41); VBG Total CO2 20.6 mmol/L (23-27)
[2023-12-31 18:06] LABS: Alanine Aminotransferase 23 U/L (12-78); Anion Gap 15.1 mEq/L (5-15); Aspartate Amino Transferase 36 U/L (17-59); Blood Urea Nitrogen 18 mg/dl (9-20); Carbon Dioxide 22 mmol/L (22.0-30.0); Creatinine Clearance Estimated 78 mL/min (50-200); Estimated Glomerular Filt Rate 55 ml/min (>60); GFR (African American) 67 ML/MIN (>60)
[2023-12-31 18:07] LABS: Albumin/Globulin Ratio 1.4 (1.1-1.8); Alkaline Phosphatase 88 U/L (38-126); Bilirubin,Total 0.4 mg/dl (0.2-1.3); Calcium 9.1 mg/dl (8.4-10.2); Globulin 3.2 g/dL (1.3-3.2); Glucose 125 mg/dl (74-100); Lipase 255 U/L (23-300); Magnesium 1.4 mg/dl (1.6-2.3); Total Protein,Serum 7.7 g/dl (6.3-8.2)
[2023-12-31 18:07] LABS: Lactate Venous 2.1 mmol/L (0.4-2.0)
[2023-12-31 18:34] LABS: Acetone, Serum (Rapid) None Detected (None Detect)
--- NOTE | 2023-12-31 18:40 | CT_ITS ---
PROCEDURE INFORMATION: Exam: CT Abdomen And Pelvis With Contrast Exam date and time: 12/31/2023 6:56 PM Age: 68 years old Clinical indication: Nausea and vomiting; Additional info: Hyponatremia, nausea vomiting diarrhea TECHNIQUE: Imaging protocol: Computed tomography of the abdomen and pelvis with contrast. Radiation optimization: All CT scans at this facility use at least one of these dose optimization techniques: automated exposure control; mA and/or kV adjustment per patient size (includes targeted exams where dose is matched to clinical indication); or iterative reconstruction. Contrast material: ISOVUE; Contrast volume: 75 ml; Contrast route: IV; COMPARISON: CT ABDOMEN PELVIS W CON 12/24/2023 12:52 PM FINDINGS: Liver: Normal. No mass. Gallbladder and biliary ducts: Normal. No calcified stones. No ductal dilation. Pancreas: Normal. No ductal dilation. Spleen: Normal. No splenomegaly. Adrenal glands: Normal. No mass. Kidneys and ureters: Normal. No hydronephrosis. Stomach and bowel: Moderate fecal retention throughout the colon. No bowel wall thickening or evidence of bowel obstruction. Appendix: The appendix is visualized and appears normal. Intraperitoneal space: Unremarkable. No free air. No significant fluid collection. Vasculature: Mild atherosclerotic calcification of the distal aorta and iliac arteries. No evidence of aneurysm or dissection. Lymph nodes: Unremarkable. No enlarged lymph nodes. Urinary bladder: Rodriguez catheter present in the urinary bladder. Reproductive: Unremarkable as visualized. Bones/joints: Moderate degenerative changes in the lower spine. No vertebral body compression or acute fracture. Soft tissues: Unremarkable. IMPRESSION: No acute abnormality. Chronic findings as noted.
[2023-12-31] MEDS: MAGNESIUM SULFATE IN WATER 2 GM/50 ML PIGGYBACK IV (18:41)
[2023-12-31] MEDS: 0.9 % SODIUM CHLORIDE 1000ML 1,000 ML 150 ML IV (18:41)
[2023-12-31 18:51] LABS: Microscopic, Urine URINE MICROSCOPIC (MICROSCOPIC)
[2023-12-31] MEDS: IOPAMIDOL-370 (76%);100ML BOTTLE 75 ML IV (18:55)
[2023-12-31] MEDS: SODIUM CHLORIDE 0.9% 10ML SYR (RAD ONLY) 10 ML IV (18:55)
[2023-12-31 18:57] LABS: Bilirubin,Urine Negative (Negative); Blood, Urine TRACE-I (Negative); Color,Urine YELLOW (Yellow); Glucose,Urine (UA) Negative (Negative); Ketones,Urine Negative (Negative); Leukocyte Esterase,Urine 2+ (Negative); Nitrate,Urine Negative (Negative); PH,Urine 5.5 (5.0-8.5); Protein,Urine Negative (Negative); Specific Gravity, Urine 1.025 (1.005-1.030); Urobilinogen,Urine 0.2 EU/dl (0.2)
[2023-12-31 19:03] LABS: Appearance,Urine Slightly Cloudy (Clear)
[2023-12-31 19:40] LABS: Bacteria,Urine Trace /lpf; RBC,Urine Occasional #/hpf (0-3); Squamous Epithelial Cell,Urine Occasional #/hpf (0-5); WBC,Urine 20-50 #/hpf (0-3)
--- NOTE | 2023-12-31 20:10 | PC.NURSE ---
call placed to greenhouse manager, nereida samayoa for bed assignment. dx: hyponatremia, and n/v/d, hospitalist admit.
--- NOTE | 2023-12-31 20:14 | PC.NURSE ---
Patient admitted to room 215 to hospitalist for hyponatremia and N/V/D; observation status.
--- NOTE | 2023-12-31 20:20 | PC.NURSE ---
report called per ANGELLA Givens at this time.
--- NOTE | 2023-12-31 20:29 | PC.NURSE ---
Attempted to call report to the floor, no answer, will attempt again.
--- NOTE | 2023-12-31 20:35 | PC.NURSE ---
Attempted to call report, RN requested to return call.
--- NOTE | 2023-12-31 20:45 | PC.NURSE ---
Nurse to nurse report given to Ly PERALES
--- NOTE | 2023-12-31 20:59 | PC.NURSE ---
pt arrived to floor at this time
--- NOTE | 2023-12-31 21:11 | P.HP_ITS ---
History of Present Illness *Admission Date: 12/31/23 *Reason for visit:: N/V. hyponatremia *History of present illness: This is a 68-year-old male with history of prior cauda equina syndrome and chronic urinary retention with chronic indwelling Latham, COPD, hypertension hyperlipidemia, diabetes presents with concerns of nausea and vomiting. Patient reports that he is not had nor been able to keep anything down since December 19. Patient is an insulin-dependent diabetic and and reports that he is intolerant of solid or liquid intake orally. Patient also reports loose stool but no abdominal pain chest pain shortness of breath fever chills hemoptysis hematochezia melena hematemesis hematuria. Patient has a chronic indwelling Latham catheter. Admitted for further management. [facility] Disclaimer: The information contained in this section may have been updated after the patient was seen, as this information can be updated by other users. Medical History Tachycardia Acute exacerbation of chronic obstructive pulmonary disease Acute urinary retention Chronic pain At risk for osteoporosis Diabetes mellitus type 2 in obese At risk for polypharmacy Pneumonia Healthcare-associated pneumonia Chronic respiratory failure with hypoxia Chronic indwelling Latham catheter Peritracheal mass Acute urinary retention Cauda equina syndrome Paralysis, progressive Encounter for immunization Atypical angina Chest pain Abnormal EKG Edema Leg pain, bilateral SOB (shortness of breath) Chronic systolic heart failure CKD (chronic kidney disease) stage 2, GFR 60-89 ml/min Diabetes mellitus COPD (chronic obstructive pulmonary disease) HLD (hyperlipidemia) HTN (hypertension) Surgical History H/O repair of rotator cuff Family History Other Diabetes Hypertension Stroke Social History Smoking Status: Never smoker alcohol intake: never substance use type: denies use current occupational status: unemployed Travel in the last 8 weeks: None household members: spouse housing: house caffeine: Yes Review of Systems Review of Systems Review of systems:: pertinent systems reviewed and negative unless documented below Meds Home Medications and Allergies Home Medications ?Medication ?Instructions ?Recorded ?Confirmed ?Type aspirin 81 mg chewable tablet 81 mg PO DAILY 03/29/23 12/31/23 History allopurinol 300 mg tablet 300 mg PO DAILY Gout 90 days #90 04/17/23 12/31/23 Rx tabs atorvastatin 40 mg tablet 40 mg PO HS Cholesterol 90 days 04/17/23 12/31/23 Rx #90 tabs budesonide 90 mcg/actuation breath 1 inh inhalation BID 30 days #1 ea 04/17/23 12/31/23 Rx activated powder inhaler isosorbide mononitrate 60 mg 60 mg PO DAILY High Blood Pressure 04/17/23 12/31/23 Rx tablet,extended release 24 hr 90 days #90 tabs montelukast 10 mg tablet 10 mg PO DAILY allergies 90 days 04/17/23 12/31/23 Rx #90 tabs nitroglycerin 0.4 mg sublingual 0.4 mg sublingual Q5MINP PRN chest 04/17/23 12/31/23 Rx tablet pain #90 tabs oxybutynin chloride 15 mg 15 mg PO DAILY Bladder 90 days #90 04/17/23 12/31/23 Rx tablet,extended release 24 hr tabs potassium chloride 20 mEq 20 meq PO DAILY Supplement 90 days 04/17/23 12/31/23 R x tablet,extended release #90 tabs rivaroxaban 15 mg tablet 15 mg PO QPMWITHMEAL Blood 04/17/23 12/31/23 Rx thinner/AFIB 90 days #90 tabs tamsulosin 0.4 mg capsule 0.8 mg (2 x 0.4 mg) PO HS Prostate 04/17/23 12/31/23 Rx 90 days #180 caps albuterol sulfate 90 mcg/actuation 2 inh inhalation Q4HP PRN 05/12/23 12/31/23 History aerosol inhaler (Ventolin HFA) Shortness Of Breath insulin glargine 100 unit/mL (3 50 unit SQ DAILY 05/12/23 01/01/24 History mL) subcutaneous pen (Basaglar FacundoPen U-100 Insulin) semaglutide 2 mg/dose (8 mg/3 mL) 2 mg SQ WEEKLY 06/14/23 12/31/23 History subcutaneous pen injector (Ozempic) aripiprazole 5 mg tablet 5 mg PO DAILY Mood #90 tabs 08/20/23 12/31/23 Rx diazepam 5 mg tablet 5 mg PO TID Tremors 90 days #270 09/04/23 01/01/24 Rx tabs escitalopram oxalate 10 mg tablet 10 mg PO DAILY 10/20/23 12/31/23 History levothyroxine 175 mcg tablet 175 mcg PO DAILYDM 10/20/23 12/31/23 History pantoprazole 40 mg tablet,delayed 40 mg PO DAILY 10/20/23 12/31/23 History release pregabalin 100 mg capsule 100 mg PO TID 10/20/23 12/31/23 History furosemide 40 mg tablet 40 mg PO DAILY Fluid #90 tabs 10/31/23 12/31/23 Rx nystatin 100,000 unit/gram topical 1 applic topical BID #60 grams 11/09/23 12/31/23 Rx powder ranolazine 500 mg tablet,extended 500 mg PO Q12H #180 tabs 11/13/23 12/31/23 Rx release,12 hr trazodone 100 mg tablet 100 mg PO HS insomnia #30 tabs 11/14/23 12/31/23 Rx sennosides 8.6 mg-docusate sodium 1 tab PO BID 30 days #60 tabs 11/25/23 12/31/23 Rx 50 mg tablet (Stimulant Laxative Plus) methenamine hippurate 1 gram tablet 1 g PO DAILY 12/11/23 12/31/23 History metoprolol succinate 25 mg 25 mg PO BID #180 tabs 12/11/23 12/31/23 Rx tablet,extended release 24 hr oxycodone 10 mg tablet 10 mg PO Q6H PRN pain #120 tabs 12/11/23 12/31/23 Rx spironolactone 25 mg tablet 25 mg PO BID 12/11/23 12/31/23 History topiramate 25 mg tablet (Topamax) 25 mg PO BID 12/11/23 12/31/23 History topiramate 50 mg tablet 50 mg PO BID WITH 25MG 12/11/23 12/31/23 History promethazine 25 mg rectal 25 mg CA Q6H PRN nausea and 12/28/23 12/31/23 Rx suppository vomiting #12 ea sulfamethoxazole 800 1 tab PO BID X10 DAYS FIRST DOSE 01/01/24 12/31/23 History mg-trimethoprim 160 mg tablet 12/23 (Bactrim DS) New Prescriptions to Start Prescriptions: Allergies Allergy/AdvReac Type Severity Reaction Status Date / Time gabapentin [From Neurontin] Allergy Intermediate Rash Verified 12/11/23 14:19 Exam Data for Last 24 hours Vital signs and Labs for Last 24 Hours: Temp Pulse Resp BP Pulse Ox O2 Del Method 98.3 F 88 19 120/71 100 Room Air 12/31/23 20:46 12/31/23 20:46 12/31/23 20:46 12/31/23 20:46 12/31/23 20:30 12/31/23 20:46 Laboratory Results - last 24 hr 12/31/23 17:05: VBG pH 7.42 H, VBG pCO2 31.3 L, VBG pO2 144.0 H, VBG HCO3 19.6 L , VBG Total CO2 20.6 L, VBG O2 Saturation 98.7 H, VBG Base Excess -4.9 L, VBG Lactic Acid 2.1 H 12/31/23 17:48: WBC 9.3, RBC 3.65 L, Hgb 10.1 L, Hct 26.6 L, MCV 73.0 L, MCH 27 .8, MCHC 38.1 H, RDW 16.6, Plt Count 301, MPV 8.4, Neut % (Auto) 63.8, Lymph % (Auto) 26.2, [place] % (Auto) 8.8, Eos % (Auto) 0.7, Baso % (Auto) 0.4, Neut # (Auto) 5.9, Lymph # (Auto) 2.4, [place] # (Auto) 0.8, Eos # (Auto) 0.1, Baso # (Auto) 0.0, Sodium 120 L, Potassium 4.1, Chloride 87 L, Carbon Dioxide 22, Anion Gap 15.1 H, BUN 18, Creatinine 1.30 H, Estimated Creat Clear 78, Estimated GFR 55 L, Est GFR ( Amer) 67, Glucose 125 H, Calcium 9.1, Magnesium 1.4 L, Total Bilirubin 0.4, AST 36, ALT 23, Alkaline Phosphatase 88, Total Protein 7.7, Albumin 4.5, Globulin 3.2, Albumin/Globulin Ratio 1.4, Lipase 255, Acetone Level None detected 12/31/23 18:49: Urine Color Yellow, Urine Appearance Slightly cloudy, Urine pH 5.5, Ur Specific [place] 1.025, Urine Protein Negative, Urine Glucose (UA) Negative, Urine Ketones Negative, Urine Blood Trace-i, Urine Nitrate Negative, Urine Bilirubin Negative, Urine Urobilinogen 0.2, Ur Leukocyte Esterase 2+ A, Urine RBC Occasional, Urine WBC 20-50, Ur Squamous Epith Cells Occasional, Urine Bacteria Trace, Urine Sodium 20.0 L I & O for Last 24 hours: Intake & Output 12/28/23 12/29/23 12/30/23 12/31/23 23:59 23:59 23:59 23:59 Weight 98.43 kg *Routine HEENT Exam Head: Present normocephalic and atraumatic Eye: Present EOMI, PERRL and normal accommodation ENT: Present mucous membranes dry *Routine Respiratory Exam Respiratory: Present CTA bilaterally and normal respiratory effort *Routine Cardiovascular Exam Cardiovascular: Present RRR, Normal S1 and tachycardia *Routine Abdominal Exam Abdominal: Present soft, normoactive bowel sounds and tenderness *Routine Rectal Exam Rectal:: deferred *Routine Genitalia Exam Genitalia:: normal male (latham catheter. edematous ) Assessment and Plan *Assessment and plan (1) Hyponatremia: Status: Acute Category: Medical Code(s): E87.1 - Hypo-osmolality and hyponatremia (2) Nausea vomiting and diarrhea: Status: Acute Category: Medical Code(s): R11.2 - Nausea with vomiting, unspecified; R19.7 - Diarrhea, unspecified (3) Acute kidney injury superimposed on CKD: Status: Acute Category: Medical Code(s): N17.9 - Acute kidney failure, unspecified; N18.9 - Chronic kidney disease, unspecified (4) Diabetes mellitus type 2 in obese: Problem Comment: As I mentioned in the past having rigid A1c goals does not seem appropriate in this patient. However according to the patient and his daughter his last A1c which was done outside of our system was 6.5 which is excellent. Will continue with the current therapies. Status: Acute Category: Medical Code(s): E11.69 - Type 2 diabetes mellitus with other specified complication; E66.9 - Obesity, unspecified (5) HTN (hypertension): Status: Acute Qualifiers: Hypertension type: primary hypertension Qualified Code(s): I10 - Essential (primary) hypertension Category: Medical Code(s): I10 - Essential (primary) hypertension Plan 68-year-old male with history of prior cauda equina syndrome and chronic urinary retention with chronic indwelling Latham, COPD, hypertension hyperlipidemia, hang betes chronic hyponatremia presents with concerns of nausea and vomiting. Patient reports that he is not had nor been able to keep anything down since December 19. on arrival initial work up showed severe hyponatremia with sodium 120. dropped from normal reading 5 day prior to this admission. Patient is also hypochloremic with mildly elevated anion gap. Creatinine 1.3. while here patient referred to be nauseated but does not had any vomit. ED requeted admission for further work up. Agreed for admission. Plan as follow: - Acute hyponatremia: admit patient started on hypertonic saline. 61ml/hr. goal of correction 8-10mEq/24 hr CMP daily monitor VS per unit encouraged hydration -James on CKD: avoid nephrotoxic monitor renal output. chronic latham UA pending. patient was on home sulfa. will deferred abx for now - Diabetes. Uncontrolled last a1c 8.3 repeat this morning sliding scale accucheck before meals HTn: resume home regimen Rest of his chronic conditions reviewed and there are stable patient on Xarelto for chronic anticoagulation. Protonix for GI bleed ppx DNR Rounded on patient after nurse practitioner. Personally examined and interviewed patient. Agree with exam findings and care plan as documented. Sodium level ordered every 8 hours. Will fluid restrict to less than 2 L a day. Urine sodium low at 20, consistent with polydipsia.
[2023-12-31 21:42] LABS: Reflex Lactic Add Lactic Reflex
[2023-12-31 23:09] LABS: POC Glucose,Bedside 118 (70-110)
[2023-12-31 23:33] LABS: Chloride 88 mmol/L (98-107); Potassium 4.2 mmoL/L (3.5-5.1); Sodium 122 mmol/L (136-145)
[2023-12-31 23:36] LABS: Anion Gap 16.2 mEq/L (5-15); Blood Urea Nitrogen 16 mg/dl (9-20); Carbon Dioxide 22 mmol/L (22.0-30.0); Creatinine Clearance Estimated 75 mL/min (50-200); Estimated Glomerular Filt Rate 55 ml/min (>60); GFR (African American) 67 ML/MIN (>60); Lactic Acid Follow Up (RFLX 1) 1.7 mmol/L (0.7-2.1)
[2023-12-31 23:37] LABS: Calcium 9.2 mg/dl (8.4-10.2); Glucose 105 mg/dl (74-100)
[2024-01-01] VITALS (13 sets, daily range): BP systolic 90–137; BP diastolic 49–79; PULSE 71–108; RESP 17–20; TEMP 36.4–37.1; O2SAT 89–97; BMI 29.7
[2024-01-01] MEDS: SODIUM CHLORIDE 3 % 500 ML 61 ML IV (03:29)
[2024-01-01] MEDS: RANOLAZINE 500MG ER TABLET 500 MG PO ×3 (03:29→20:44)
[2024-01-01] MEDS: OXYCODONE 5MG IMMEDIATE RELEASE TABLET 10 MG PO ×3 (03:33→22:10)
--- NOTE | 2024-01-01 05:25 | PC.NURSE ---
sodium 122 after ns 1liter given, order for 3% ns ordered, pt placed on hospital monitor and seizure pads placed.
[2024-01-01] MEDS: FLUTICASONE HFA 110MCG INHALER 1 PUFF IH ×2 (06:29→18:08)
[2024-01-01] MEDS: AEROCHAMBER/OPTIHALER 1 UNIT MC (06:29)
[2024-01-01] MEDS: LEVOTHYROXINE 25MCG (0.025MG) TAB 175 MCG PO (06:59)
[2024-01-01 07:04] LABS: Alanine Aminotransferase 23 U/L (12-78); Albumin Level 4.2 g/dl (3.5-5.0); Albumin/Globulin Ratio 1.3 (1.1-1.8); Alkaline Phosphatase 82 U/L (38-126); Anion Gap 15.2 mEq/L (5-15); Aspartate Amino Transferase 56 U/L (17-59); Bilirubin,Total 0.6 mg/dl (0.2-1.3); Blood Urea Nitrogen 16 mg/dl (9-20); Carbon Dioxide 19 mmol/L (22.0-30.0); Chloride 92 mmol/L (98-107); Creatinine Clearance Estimated 88 mL/min (50-200); Estimated Glomerular Filt Rate 67 ml/min (>60); GFR (African American) 81 ML/MIN (>60); Globulin 3.3 g/dL (1.3-3.2); Glucose 103 mg/dl (74-100); Magnesium 1.9 mg/dl (1.6-2.3); Potassium 4.2 mmoL/L (3.5-5.1); Sodium 122 mmol/L (136-145); Total Protein,Serum 7.5 g/dl (6.3-8.2)
--- NOTE | 2024-01-01 08:22 | EXP.ACUTE.PN ---
Subjective *Date: 01/01/24 *Time: 13:26 Interval history: Patient states he is feeling okay today. No bowel movement since admission. Continues on baseline 2 L nasal cannula oxygen. No nausea or vomiting overnight. Remains afebrile. Hemodynamically stable Medical Exam Vital signs and Labs for Last 24 Hours: Vital Signs Temp Pulse Pulse Resp BP BP Pulse Ox 01/01/24 08:14 97 01/01/24 07:45 88 96 01/01/24 07:39 97.6 F 78 18 125/70 96 01/01/24 07:00 01/01/24 05:00 01/01/24 04:00 97.8 F 79 17 121/67 95 01/01/24 04:00 71 01/01/24 03:00 01/01/24 01:00 01/01/24 00:00 98.6 F 80 17 137/79 97 12/31/23 23:00 12/31/23 21:49 12/31/23 21:39 98.0 F 75 17 103/76 L 99 12/31/23 20:46 98.3 F 88 19 120/71 12/31/23 20:30 80 120/71 100 12/31/23 20:00 80 116/74 99 12/31/23 19:30 85 117/71 99 12/31/23 18:31 83 116/76 95 12/31/23 17:00 82 140/73 95 12/31/23 16:57 97.8 F 90 20 134/74 92 L O2 Del Method O2 Flow Rate 01/01/24 08:14 Nasal Cannula 2 01/01/24 07:45 Nasal Cannula 3 01/01/24 07:39 Nasal Cannula 3 01/01/24 07:00 Nasal Cannula 2 01/01/24 05:00 Nasal Cannula 3 01/01/24 04:00 Nasal Cannula 01/01/24 04:00 01/01/24 03:00 Nasal Cannula 2 01/01/24 01:00 Nasal Cannula 3 01/01/24 00:00 Nasal Cannula 3 12/31/23 23:00 Nasal Cannula 2 12/31/23 21:49 Nasal Cannula 2 12/31/23 21:39 Nasal Cannula 3 12/31/23 20:46 Room Air 12/31/23 20:30 Room Air 12/31/23 20:00 12/31/23 19:30 12/31/23 18:31 12/31/23 17:00 12/31/23 16:57 Room Air Intake and Output 12/31/23 01/01/24 01/01/24 23:59 07:59 15:59 Intake Total 2701 / 2701 Output Total 2500 / 2500 Balance 201 / 201 Intake: Intake, Oral Amount 1680 / 1680 Intake, Total IV Amount 1021 / 1021 0.9 % Sodium Chloride 1000ML 1, 1021 / 1021 000 ml @ 150 mls/hr IV .Q6H40M [facility] Rx#:[id number] Output: Output, Urine Amount 2500 / 2500 Other: Number of Voids 0 Number of Unmeasured Voids 0 Number of Bowel Movements 1 Weight 94.256 kg 94.256 kg Patient Weight 01/01/24 23:59 Weight 94.256 kg Laboratory Results - last 24 hr 12/31/23 17:05: VBG pH 7.42 H, VBG pCO2 31.3 L, VBG pO2 144.0 H, VBG HCO3 19.6 L, VBG Total CO2 20.6 L, VBG O2 Saturation 98.7 H, VBG Base Excess -4.9 L, VBG Lactic Acid 2.1 H 12/31/23 17:48: WBC 9.3, RBC 3.65 L, Hgb 10.1 L, Hct 26.6 L, MCV 73.0 L, MCH 27.8, MCHC 38.1 H, RDW 16.6, Plt Count 301, MPV 8.4, Neut % (Auto) 63.8, Lymph % (Auto) 26.2, [place] % (Auto) 8.8, Eos % (Auto) 0.7, Baso % (Auto) 0.4, Neut # (Auto) 5.9, Lymph # (Auto) 2.4, [place] # (Auto) 0.8, Eos # (Auto) 0.1, Baso # (Auto) 0.0, Sodium 120 L, Potassium 4.1, Chloride 87 L, Carbon Dioxide 22, Anion Gap 15.1 H, BUN 18, Creatinine 1.30 H, Estimated Creat Clear 78, Estimated GFR 55 L, Est GFR ( Amer) 67, Glucose 125 H, Calcium 9.1, Magnesium 1.4 L, Total Bilirubin 0.4, AST 36, ALT 23, Alkaline Phosphatase 88, Total Protein 7.7, Albumin 4.5, Globulin 3.2, Albumin/Globulin Ratio 1.4, Lipase 255, Acetone Level None detected 12/31/23 18:49: Urine Color Yellow, Urine Appearance Slightly cloudy, Urine pH 5.5, Ur Specific [place] 1.025, Urine Protein Negative, Urine Glucose (UA) Negative, Urine Ketones Negative, Urine Blood Trace-i, Urine Nitrate Negative, Urine Bilirubin Negative, Urine Urobilinogen 0.2, Ur Leukocyte Esterase 2+ A, Urine RBC Occasional, Urine WBC 20-50, Ur Squamous Epith Cells Occasional, Urine Bacteria Trace, Urine Sodium 20.0 L 12/31/23 22:51: POC Glucose 118 H 12/31/23 23:15: Sodium 122 L, Potassium 4.2, Chloride 88 L, Carbon Dioxide 22, Anion Gap 16.2 H, BUN 16, Creatinine 1.30 H, Estimated Creat Clear 75, Estimated GFR 55 L, Est GFR ( Amer) 67, Glucose 105 H, Lactate 1.7, Calcium 9.2 01/01/24 05:56: Sodium 122 L, Potassium 4.2, Chloride 92 L, Carbon Dioxide 19 L, Anion Gap 15.2 H, BUN 16, Creatinine 1.10, Estimated Creat Clear 88, Estimated GFR 67, Est GFR ( Amer) 81 D, Glucose 103 H, Calcium 9.0, Magnesium 1.9 D, Total Bilirubin 0.6, AST 56 D, ALT 23, Alkaline Phosphatase 82, Total Protein 7.5, Albumin 4.2, Globulin 3.3 H, Albumin/Globulin Ratio 1.3 I & O for Labs for Last 24 Hours: Intake & Output 12/29/23 12/30/23 12/31/23 01/01/24 23:59 23:59 23:59 23:59 Intake Total 2701 / 2701 Output Total 2500 / 2500 Balance 201 / 201 Weight 94.256 kg 94.256 kg Constitutional: Present no acute distress, obese, chronically ill appearing and cooperative Head: Present atraumatic and normocephalic ENT: Present normal exam Neck: Present normal inspection Respiratory: Present normal respiratory effort; Absent rhonchi, wheezes or crackles Cardiac: Present Reg Rate and Rhythm GI: Present soft, distention and normal bowel sounds; Absent tenderness or rigidity Comment:: Rodriguez in place, edematous Extremities: Present normal inspection and full ROM Skin: Present intact; Absent erythema Neuro: Present Grossly Intact, alert, awake, oriented x 3 and moves all extremities Assessment and Plan *Assessment and plan (1) Hyponatremia: Status: Acute Category: Medical Code(s): E87.1 - Hypo-osmolality and hyponatremia (2) Nausea vomiting and diarrhea: Status: Acute Category: Medical Code(s): R11.2 - Nausea with vomiting, unspecified; R19.7 - Diarrhea, unspecified (3) Acute kidney injury superimposed on CKD: Status: Acute Category: Medical Code(s): N17.9 - Acute kidney failure, unspecified; N18.9 - Chronic kidney disease, unspecified (4) Diabetes mellitus type 2 in obese: Problem Comment: As I mentioned in the past having rigid A1c goals does not seem appropriate in this patient. However according to the patient and his daughter his last A1c which was done outside of our system was 6.5 which is excellent. Will continue with the current therapies. Status: Acute Category: Medical Code(s): E11.69 - Type 2 diabetes mellitus with other specified complication; E66.9 - Obesity, unspecified (5) HTN (hypertension): Status: Acute Qualifiers: Hypertension type: primary hypertension Qualified Code(s): I10 - Essential (primary) hypertension Category: Medical Code(s): I10 - Essential (primary) hypertension (6) Functional quadriplegia: Status: Chronic Category: Medical Code(s): R53.2 - Functional quadriplegia Plan 68-year-old male with history of prior cauda equina syndrome and chronic urinary retention with chronic indwelling Rodriguez, COPD, hypertension hyperlipidemia, diabetes chronic hyponatremia presents with concerns of nausea and vomiting. Patient reports that he is not had nor been able to keep anything down since December 19. on arrival initial work up showed severe hyponatremia with sodium 120. dropped from normal reading 5 day prior to this admission. Patient is also hypochloremic with mildly elevated anion gap. Creatinine 1.3. while here patient referred to be nauseated but does not had any vomit. ED requeted admission for further work up. Agreed for admission. Sodium 122 this morning. Chloride 92. Showing some improvement. Completing hypertonic saline, continues to necessitate inpatient management. Problems addressed as follows: Acute on chronic hyponatremia: Will complete hypertonic saline today. Monitoring sodium level every 8 hours. Repeat this morning 122. Goal correction 8 to 10 mEq every 24 hours. Fluid restrict to less than 2 L a day. Urine sodium 20, concern for delusional suggestive of polydipsia or inadequate sodium intake. Initiate sodium chloride tablets 500 mg 3 times a day BMP every 8 hours, CBC and magnesium ordered for the morning -James on CKD: Chronic indwelling catheter Kidney function improving, BUN 16, creatinine 1.1. Making urine avoid nephrotoxic Chronic Rodriguez - Diabetes. A1c 7.1 on 10/20/2023. Repeat A1c ordered. Continue sliding scale insulin with fingersticks ACHS. Continue glargine 80 units nightly. Morning glucose 103 Constipation Abdominal pain - Continue docusate senna 1 tablet twice daily. -Chronic issues for him. Stable chronic conditions: Mood disorder/depression: Continue citalopram 20 mg daily and Abilify 5 mg daily, Valium 5 mg 3 times a day, Topamax 25 mg daily and trazodone 100 mg nightly to help with sleep and mood COPD: Continue fluticasone 1 puff twice daily, Singulair 10 mg daily Hypertension/CAD/CHF: Continue Imdur 60 mg daily, metoprolol 25 mg daily, ranolazine 500 mg twice daily A-fib: Metoprolol as above and Xarelto 15 mg daily Neurogenic bladder: Oxybutynin 5 mg 3 times a day, tamsulosin 0.8 milligrams nightly Neuropathy: Lyrica 100 mg 3 times a day Hypothyroid: Continue levothyroxine 175 mcg daily Functional quadriplegia due to patient's cauda equina, bedbound status, need for assistance with ADLs. Unable to perform ADLs by himself. patient on Xarelto for chronic anticoagulation. Protonix for GI bleed ppx DNR
[2024-01-01] MEDS: diazePAM 5MG TABLET 5 MG PO ×3 (08:34→20:45)
[2024-01-01] MEDS: ARIPiprazole 10MG TABLET 5 MG PO (08:34)
[2024-01-01] MEDS: PREGABALIN 100MG CAPSULE 100 MG PO ×3 (08:35→20:45)
[2024-01-01] MEDS: NYSTATIN TOPICAL POWDER 30GM TP ×2 (08:35→20:47)
[2024-01-01] MEDS: ISOSORBIDE MONO 60MG TAB.ER.24H 60 MG PO (08:36)
[2024-01-01] MEDS: METOPROLOL SUCCINATE XL 25MG TABLET 25 MG PO ×2 (08:36→20:54)
[2024-01-01] MEDS: ALLOPURINOL 300MG TABLET 300 MG PO (08:36)
[2024-01-01] MEDS: POTASSIUM CHLORIDE 20MEQ TAB 20 MEQ PO (08:36)
[2024-01-01] MEDS: CITALOPRAM 20MG TABLET 20 MG PO (08:36)
[2024-01-01] MEDS: OXYBUTYNIN 5MG TAB 5 MG PO ×3 (08:36→20:45)
[2024-01-01] MEDS: ASPIRIN 81MG CHEWABLE TABLET 81 MG PO (08:36)
[2024-01-01] MEDS: TOPIRAMATE 25MG TABLET 50 MG PO (08:36)
[2024-01-01] MEDS: FUROSEMIDE 40 MG TABLET PO (08:37)
[2024-01-01] MEDS: SENNOSIDES 8.6MG/DOCUSATE 50MG TABLET 1 TAB PO ×2 (08:37→20:45)
[2024-01-01] MEDS: INSULIN GLARGINE 100 UNITS/ML 3ML FLEXPEN 50 UNIT SQ (08:37)
[2024-01-01] MEDS: SPIRONOLACTONE 25MG TABLET 25 MG PO ×2 (08:37→20:45)
[2024-01-01] MEDS: TOPIRAMATE 25MG TABLET 25 MG PO (08:37)
[2024-01-01 10:17] LABS: Basophils % 0.7 % (0.1-2.0); Eosinophils # 0.1 K/mm3 (0.0-0.4); Eosinophils % 1.5 % (0.1-12.0); Hematocrit 30.5 % (42.0-52.0); Hemoglobin 9.9 g/dL (14.1-18.0); Lymphocytes # 1.7 K/mm3 (0.7-4.5); Lymphocytes % 26.8 % (10-50); Mean Corpuscular HGB Conc 32.4 g/dL (31.8-35.4); Mean Corpuscular Hemoglobin 24.3 pg (27.0-31.2); Mean Corpuscular Volume 74.9 fl (80-94); Mean Platelet Volume 8.5 fl (7.4-10.4); Monocytes # 0.6 K/mm3 (0.1-1.0); Monocytes % 10.2 % (1.7-9.3); Neutrophils # 3.8 K/mm3 (1.8-7.8); Neutrophils % 60.9 % (37.0-80.0); Platelet Count 286 K/mm3 (142-424); Red Blood Count 4.07 M/mm3 (4.60-6.20); White Blood Count 6.2 K/mm3 (4.8-10.8)
--- NOTE | 2024-01-01 11:19 | DIET.NUTRFU ---
Patient was educated on 1500 fluid restriction by nursing and diet was advanced to diabetic 1800.
--- NOTE | 2024-01-01 11:22 | HMH.PHAINT1 ---
Pharmacy Intervention Comments: MEDICATION RECONCILIATION COMPLETED ON PATIENT USING EXTERNAL FILL HISTORY FROM PHARMACY. -GLADIS OLMSTEAD, COND
[2024-01-01 11:49] LABS: POC Glucose,Bedside 116 (70-110)
[2024-01-01 11:49] LABS: POC Glucose,Bedside 152 (70-110)
[2024-01-01] MEDS: SODIUM CHLORIDE 1,000MG TABLET 500 MG PO ×2 (13:22→20:45)
[2024-01-01 14:12] LABS: Chloride 99 mmol/L (98-107); Potassium 4.5 mmoL/L (3.5-5.1); Sodium 130 mmol/L (136-145)
[2024-01-01 14:15] LABS: Anion Gap 11.5 mEq/L (5-15); Blood Urea Nitrogen 13 mg/dl (9-20); Calcium 8.6 mg/dl (8.4-10.2); Carbon Dioxide 24 mmol/L (22.0-30.0); Creatinine Clearance Estimated 75 mL/min (50-200); Estimated Glomerular Filt Rate 55 ml/min (>60); GFR (African American) 67 ML/MIN (>60); Glucose 189 mg/dl (74-100)
--- NOTE | 2024-01-01 15:51 | PC.NURSE ---
pt is bedfast and has remained in bed this shift. pt is a/o x 4. pt has 2lpm/nc in place and is voiding pale yellow urine via chronic latham catheter. pt was placed on a fluid restricted diet by r/t hyponatremia. pt has asked numerous times for something to drink and fluid restriction has been explained to pt. pt arrived in the early afternoon and was asking for an update on pt diagnosis. fluid restriction was explained again to pt and at bedside, numerous times. pt was initially on a clear liquid diet and had already exceeded the 1500ml restriction prior to lunch. md has allowed for pt to have small amount of liquids with meals even tho he is over the restriction amount. pt still insistant that pt has more to drink before supper.
[2024-01-01] MEDS: RIVAROXABAN 15MG TABLET 15 MG PO (17:00)
[2024-01-01 17:07] LABS: POC Glucose,Bedside 153 (70-110)
--- NOTE | 2024-01-01 18:55 | PC.NURSE ---
pt requests tylenol r/t breakthrough pain. med not ordered. contacted Dr Nieto at 1850, md to order tylenol
[2024-01-01] MEDS: ACETAMINOPHEN 325MG TAB 650 MG PO (19:35)
[2024-01-01] MEDS: TAMSULOSIN 0.4MG CAPSULE 0.8 MG PO (20:44)
[2024-01-01] MEDS: PANTOPRAZOLE 40MG TABLET 40 MG PO (20:44)
[2024-01-01] MEDS: TRAZODONE 50MG TABLET 100 MG PO (20:44)
[2024-01-01] MEDS: TOPIRAMATE 25MG TABLET 75 MG PO (20:44)
[2024-01-01] MEDS: ATORVASTATIN 40MG TABLET 40 MG PO (20:45)
[2024-01-01] MEDS: MONTELUKAST SODIUM 10MG TAB 10 MG PO (20:45)
[2024-01-01 21:13] LABS: POC Glucose,Bedside 215 (70-110)
[2024-01-01 22:21] LABS: Chloride 100 mmol/L (98-107); Sodium 130 mmol/L (136-145)
[2024-01-01 22:22] LABS: Potassium 4.2 mmoL/L (3.5-5.1)
[2024-01-01 22:24] LABS: Blood Urea Nitrogen 16 mg/dl (9-20); Creatinine Clearance Estimated 69 mL/min (50-200); Estimated Glomerular Filt Rate 51 ml/min (>60); GFR (African American) 61 ML/MIN (>60)
[2024-01-01 22:25] LABS: Anion Gap 10.2 mEq/L (5-15); Calcium 8.5 mg/dl (8.4-10.2); Carbon Dioxide 24 mmol/L (22.0-30.0); Glucose 207 mg/dl (74-100)
[2024-01-02] VITALS: PULSE 97; O2SAT 95
--- NOTE | 2024-01-02 03:47 | PC.NURSE ---
pt is alert and oriented x4 and currently tolerating 2L of O2 well. Pt has c/o moderate pain this shift and has been treated per MAR. Pt is currently on a fluid restriction and continues to ask staff for additional drinks. Pt had had a small glass of water with medications this shift, this nurse did educate Pt on importance of restriction. Pt denies other needs at this time, no other acute [id number] to note at this time.
[2024-01-02 04:00] VITALS: BP 103/60; PULSE 71; PULSE 81; RESP 18; TEMP 36.4; O2SAT 94; BMI 30.5
[2024-01-02] MEDS: LEVOTHYROXINE 175MCG (0.175MG) TAB 175 MCG PO (06:03)
[2024-01-02] MEDS: FLUTICASONE HFA 110MCG INHALER 1 PUFF IH (06:06)
[2024-01-02 06:11] LABS: POC Glucose,Bedside 141 (70-110)
[2024-01-02] MEDS: OXYCODONE 5MG IMMEDIATE RELEASE TABLET 10 MG PO (06:21)
[2024-01-02 06:33] LABS: Basophils % 0.9 % (0.1-2.0); Eosinophils # 0.1 K/mm3 (0.0-0.4); Eosinophils % 1.9 % (0.1-12.0); Hematocrit 27.8 % (42.0-52.0); Lymphocytes % 43.1 % (10-50); Mean Corpuscular HGB Conc 31.4 g/dL (31.8-35.4); Mean Corpuscular Hemoglobin 24.1 pg (27.0-31.2); Mean Corpuscular Volume 76.8 fl (80-94); Mean Platelet Volume 8.2 fl (7.4-10.4); Monocytes # 0.5 K/mm3 (0.1-1.0); Monocytes % 11.7 % (1.7-9.3); Neutrophils # 1.9 K/mm3 (1.8-7.8); Neutrophils % 42.3 % (37.0-80.0); Platelet Count 245 K/mm3 (142-424); Red Blood Count 3.61 M/mm3 (4.60-6.20); Red Cell Distribution Width 16.3 % (11.5-17.5); White Blood Count 4.5 K/mm3 (4.8-10.8)
[2024-01-02 06:49] LABS: Anion Gap 10.8 mEq/L (5-15); Blood Urea Nitrogen 16 mg/dl (9-20); Calcium 8.6 mg/dl (8.4-10.2); Carbon Dioxide 25 mmol/L (22.0-30.0); Chloride 99 mmol/L (98-107); Creatinine Clearance Estimated 76 mL/min (50-200); Estimated Glomerular Filt Rate 55 ml/min (>60); GFR (African American) 67 ML/MIN (>60); Glucose 136 mg/dl (74-100); Magnesium 1.9 mg/dl (1.6-2.3); Potassium 3.8 mmoL/L (3.5-5.1); Sodium 131 mmol/L (136-145)
[2024-01-02 08:00] VITALS: BP 103/59; PULSE 70; PULSE 79; RESP 17; TEMP 36.6; O2SAT 95
[2024-01-02] MEDS: ALLOPURINOL 300MG TABLET 300 MG PO (08:14)
[2024-01-02] MEDS: ASPIRIN 81MG CHEWABLE TABLET 81 MG PO (08:15)
[2024-01-02] MEDS: ARIPiprazole 10MG TABLET 5 MG PO (08:15)
[2024-01-02] MEDS: diazePAM 5MG TABLET 5 MG PO ×2 (08:15→13:22)
[2024-01-02] MEDS: CITALOPRAM 20MG TABLET 20 MG PO (08:15)
[2024-01-02] MEDS: METOPROLOL SUCCINATE XL 25MG TABLET 25 MG PO (08:16)
[2024-01-02] MEDS: INSULIN GLARGINE 100 UNITS/ML 3ML FLEXPEN 50 UNIT SQ (08:16)
[2024-01-02] MEDS: ISOSORBIDE MONO 60MG TAB.ER.24H 60 MG PO (08:16)
[2024-01-02] MEDS: FUROSEMIDE 40 MG TABLET PO (08:16)
[2024-01-02] MEDS: NYSTATIN TOPICAL POWDER 30GM TP (08:16)
[2024-01-02] MEDS: SODIUM CHLORIDE 1,000MG TABLET 500 MG PO ×2 (08:17→13:22)
[2024-01-02] MEDS: OXYBUTYNIN 5MG TAB 5 MG PO ×2 (08:17→13:22)
[2024-01-02] MEDS: SPIRONOLACTONE 25MG TABLET 25 MG PO (08:17)
[2024-01-02] MEDS: RANOLAZINE 500MG ER TABLET 500 MG PO (08:17)
[2024-01-02] MEDS: SENNOSIDES 8.6MG/DOCUSATE 50MG TABLET 1 TAB PO (08:17)
[2024-01-02] MEDS: POTASSIUM CHLORIDE 20MEQ TAB 20 MEQ PO (08:17)
[2024-01-02] MEDS: TOPIRAMATE 25MG TABLET 75 MG PO (08:18)
[2024-01-02] MEDS: PREGABALIN 100MG CAPSULE 100 MG PO ×2 (08:20→13:23)
--- NOTE | 2024-01-02 09:46 | P.DS_ITS ---
General Admission date:: 12/31/23 Discharge date: 01/02/24 HPI HPI HPI: This is a 68-year-old male with history of prior cauda equina syndrome and chronic urinary retention with chronic indwelling Rodriguez, COPD, hypertension hyperlipidemia, diabetes presents with concerns of nausea and vomiting. Patient reports that he is not had nor been able to keep anything down since December 19. Patient is an insulin-dependent diabetic and and reports that he is intolerant of solid or liquid intake orally. Patient also reports loose stool but no abdominal pain chest pain shortness of breath fever chills hemoptysis hemato chezia melena hematemesis hematuria. Patient has a chronic indwelling Rodriguez catheter. Admitted for further management. Hospital Course Hospital Course Hospital Course: 68-year-old male with history of prior cauda equina syndrome and chronic urinary retention with chronic indwelling Rodriguez, COPD, hypertension hyperlipidemia, diabetes chronic hyponatremia presents with concerns of nausea and vomiting. Patient reports that he is not had nor been able to keep anything down since December 19. on arrival initial work up showed severe hyponatremia with sodium 120. dropped from normal reading 5 day prior to this admission. Patient is also hypochloremic with mildly elevated anion gap. Creatinine 1.3. while here patient referred to be nauseated but does not had any vomit. ED requeted admission for further work up. Agreed for admission. Sodium 122 on morning labs after admission. Gradual replacement with hypertonic saline and fluid restriction. Showed improvement, sodium 131 on day of discharge. Labs otherwise appear normal for patient. Baseline kidney function. Stable to discharge home. Counseled on restricting fluid intake to less than 3 L a day. Patient self reports polydipsia which appears to be the culprit for his hyponatremia. Problems addressed as follows: Acute on chronic hyponatremia: Initiated on hypertonic saline due to sodium of 122. Showed gradual improvement. Urine sodium obtained, level of 20. Consistent with hypervolemic hyponatremia and delusional from polydipsia or inadequate sodium intake. Restricted fluid intake to less than 2 L during admission. Sodium rapidly improved to 130 over 24 hours. Remained at 131 on day of discharge with fluid restriction. Continue fluid restriction at this time. Started on sodium chloride tablets as well. Continue 500 mg 3 times a day. Would benefit from repeat labs in 1 week. Mentation at baseline on day of discharge. -James on CKD: Chronic indwelling catheter Kidney function improved during admission. At baseline with BUN 16, creatinine 1.1-1.3. Making good urine. Long-term indwelling Rodriguez. Resume home health for regular Rodriguez exchange. Urine did show gram-positive cocci. Culture returned after discharge. Appropriate antibiotics sent. See culture result for details - Diabetes. A1c 7.1 on 10/20/2023. Repeat A1c 6.7. Continue home regimen at discharge. Constipation Abdominal pain - Continue docusate senna 1 tablet twice daily. Chronic issues for him. Bowel movements during admission. Stable chronic conditions: Mood disorder/depression: Continue citalopram 20 mg daily and Abilify 5 mg daily, Valium 5 mg 3 times a day, Topamax 25 mg daily and trazodone 100 mg nightly to help with sleep and mood COPD: Continue fluticasone 1 puff twice daily, Singulair 10 mg daily Hypertension/CAD/CHF: Continue Imdur 60 mg daily, metoprolol 25 mg daily, ranolazine 500 mg twice daily A-fib: Metoprolol as above and Xarelto 15 mg daily Neurogenic bladder: Oxybutynin 5 mg 3 times a day, tamsulosin 0.8 milligrams nightly Neuropathy: Lyrica 100 mg 3 times a day Hypothyroid: Continue levothyroxine 175 mcg daily Functional quadriplegia due to patient's cauda equina, bedbound status, need for assistance with ADLs. Unable to perform ADLs by himself. Total time spent on discharge 35 minutes in counseling, documentation, chart review, and direct care with patient. Exam Data for Last 24 hours Vital signs and Labs for Last 24 Hours: Temp Pulse Resp BP Pulse Ox O2 Del Method O2 Flow Rate 97.9 F 79 17 103/59 L 95 Nasal Cannula 2 01/02/24 08:00 01/02/24 08:00 01/02/24 08:00 01/02/24 08:00 01/02/24 08:00 01/02/24 08:56 01/02/24 08:56 Laboratory Results - last 24 hr 12/31/23 18:49: Urine Color Yellow, Urine Appearance Slightly cloudy, Urine pH 5.5, Ur Specific [place] 1.025, Urine Protein Negative, Urine Glucose (UA) Negative, Urine Ketones Negative, Urine Blood Trace-i, Urine Nitrate Negative, Urine Bilirubin Negative, Urine Urobilinogen 0.2, Ur Leukocyte Esterase 2+ A, Urine RBC Occasional, Urine WBC 20-50, Ur Squamous Epith Cells Occasional, Urine Bacteria Trace 01/01/24 06:57: POC Glucose 116 H 01/01/24 10:05: WBC 6.2 D, RBC 4.07 L, Hgb 9.9 L, Hct 30.5 L, MCV 74.9 L, MCH 24.3 L, MCHC 32.4, RDW 16.0, Plt Count 286, MPV 8.5, Neut % (Auto) 60.9, Lymph % (Auto) 26.8, [place] % (Auto) 10.2 H, Eos % (Auto) 1.5, Baso % (Auto) 0.7, Neut # (Auto) 3.8, Lymph # (Auto) 1.7, [place] # (Auto) 0.6, Eos # (Auto) 0.1, Baso # (Auto) 0.0 01/01/24 11:42: POC Glucose 152 H 01/01/24 14:00: Sodium 130 L, Potassium 4.5, Chloride 99, Carbon Dioxide 24, Anion Gap 11.5, BUN 13, Creatinine 1.30 H, Estimated Creat Clear 75, Estimated GFR 55 L, Est GFR ( Amer) 67, Glucose 189 H D, Calcium 8.6 01/01/24 16:59: POC Glucose 153 H 01/01/24 21:03: POC Glucose 215 H 01/01/24 22:05: Sodium 130 L, Potassium 4.2, Chloride 100, Carbon Dioxide 24, Anion Gap 10.2, BUN 16, Creatinine 1.40 H, Estimated Creat Clear 69, Estimated GFR 51 L, Est GFR ( Amer) 61, Glucose 207 H, Calcium 8.5 01/02/24 05:29: Sodium 131 L, Potassium 3.8, Chloride 99, Carbon Dioxide 25, Anion Gap 10.8, BUN 16, Creatinine 1.30 H, Estimated Creat Clear 76, Estimated GFR 55 L, Est GFR ( Amer) 67, Glucose 136 H D, Calcium 8.6, Magnesium 1.9 01/02/24 06:02: POC Glucose 141 H I & O for Last 24 hours: Intake & Output 12/30/23 12/31/23 01/01/24 07/31/24 23:59 23:59 23:59 23:59 Intake Total 3330 / 3570 840 / 840 Output Total 5850 / 5850 500 / 500 Balance -2520 / -2280 340 / 340 Weight 94.256 kg 94.256 kg 96.751 kg Microbiology Reports for the Last 24 Hours: Microbiology 12/31/23 18:49 Urine,Clean Catch Urine Culture - Preliminary Gram Positive Cocci Constitutional Constitutional: no acute distress, obese, chronically ill appearing and disheveled *Routine HEENT Exam Head: Present normocephalic Eye: Present EOMI and PERRL ENT: Present mucous membranes moist *Routine Neck Exam Neck: Present supple; Absent lymphadenopathy *Routine Respiratory Exam Respiratory: Present CTA bilaterally; Absent rhonchi, wheezes or crackles *Routine Cardiovascular Exam Cardiovascular: Present RRR *Routine Abdominal Exam Abdominal: Present soft, normoactive bowel sounds, tenderness (Minimal) and distended (At baseline); Absent rebound or guarding *Routine Rectal Exam Patient deferred: visual exam *Routine Exam Patient deferred: penile exam Comments: Rodriguez in place *Routine Extremities Exam Extremities: Absent cyanosis, clubbing or edema *Routine Skin Exam Skin: Present intact and warm; Absent rash *Routine Neurological Exam Neurological: Present alert, oriented X3 and moving all extremities; Absent altered mental status Routine Psychiatric Exam Psychiatric: Present normal affect Results Data Completed and Pending Labs on day of discharge: Labs from last 24 hours 01/02/24 01/02/24 01/01/24 06:02 05:29 22:05 WBC RBC Hgb Hct MCV MCH MCHC RDW Plt Count MPV Neut % (Auto) Lymph % (Auto) [place] % (Auto) Eos % (Auto) Baso % (Auto) Neut # (Auto) Lymph # (Auto) [place] # (Auto) Eos # (Auto) Baso # (Auto) Sodium 131 L 130 L Potassium 3.8 4.2 Chloride 99 100 Carbon Dioxide 25 24 Anion Gap 10.8 10.2 BUN 16 16 Creatinine 1.30 H 1.40 H Estimated Creat Clear 76 69 Estimated GFR 55 L 51 L Est GFR ( Amer) 67 61 Glucose 136 H D 207 H POC Glucose 141 H Calcium 8.6 8.5 Magnesium 1.9 Urine Color Urine Appearance Urine pH Ur Specific [place] Urine Protein Urine Glucose (UA) Urine Ketones Urine Blood Urine Nitrate Urine Bilirubin Urine Urobilinogen Ur Leukocyte Esterase Urine RBC Urine WBC Ur Squamous Epith Cells Urine Bacteria 01/01/24 01/01/24 01/01/24 21:03 16:59 14:00 WBC RBC Hgb Hct MCV MCH MCHC RDW Plt Count MPV Neut % (Auto) Lymph % (Auto) [place] % (Auto) Eos % (Auto) Baso % (Auto) Neut # (Auto) Lymph # (Auto) [place] # (Auto) Eos # (Auto) Baso # (Auto) Sodium 130 L Potassium 4.5 Chloride 99 Carbon Dioxide 24 Anion Gap 11.5 BUN 13 Creatinine 1.30 H Estimated Creat Clear 75 Estimated GFR 55 L Est GFR ( Amer) 67 Glucose 189 H D POC Glucose 215 H 153 H Calcium 8.6 Magnesium Urine Color Urine Appearance Urine pH Ur Specific [place] Urine Protein Urine Glucose (UA) Urine Ketones Urine Blood Urine Nitrate Urine Bilirubin Urine Urobilinogen Ur Leukocyte Esterase Urine RBC Urine WBC Ur Squamous Epith Cells Urine Bacteria 01/01/24 01/01/24 01/01/24 11:42 10:05 06:57 WBC 6.2 D RBC 4.07 L Hgb 9.9 L Hct 30.5 L MCV 74.9 L MCH 24.3 L MCHC 32.4 RDW 16.0 Plt Count 286 MPV 8.5 Neut % (Auto) 60.9 Lymph % (Auto) 26.8 [place] % (Auto) 10.2 H Eos % (Auto) 1.5 Baso % (Auto) 0.7 Neut # (Auto) 3.8 Lymph # (Auto) 1.7 [place] # (Auto) 0.6 Eos # (Auto) 0.1 Baso # (Auto) 0.0 Sodium Potassium Chloride Carbon Dioxide Anion Gap BUN Creatinine Estimated Creat Clear Estimated GFR Est GFR ( Amer) Glucose POC Glucose 152 H 116 H Calcium Magnesium Urine Color Urine Appearance Urine pH Ur Specific [place] Urine Protein Urine Glucose (UA) Urine Ketones Urine Blood Urine Nitrate Urine Bilirubin Urine Urobilinogen Ur Leukocyte Esterase Urine RBC Urine WBC Ur Squamous Epith Cells Urine Bacteria 12/31/23 18:49 WBC RBC Hgb Hct MCV MCH MCHC RDW Plt Count MPV Neut % (Auto) Lymph % (Auto) [place] % (Auto) Eos % (Auto) Baso % (Auto) Neut # (Auto) Lymph # (Auto) [place] # (Auto) Eos # (Auto) Baso # (Auto) Sodium Potassium Chloride Carbon Dioxide Anion Gap BUN Creatinine Estimated Creat Clear Estimated GFR Est GFR ( Amer) Glucose POC Glucose Calcium Magnesium Urine Color Yellow Urine Appearance Slightly cloudy Urine pH 5.5 Ur Specific [place] 1.025 Urine Protein Negative Urine Glucose (UA) Negative Urine Ketones Negative Urine Blood Trace-i Urine Nitrate Negative Urine Bilirubin Negative Urine Urobilinogen 0.2 Ur Leukocyte Esterase 2+ A Urine RBC Occasional Urine WBC 20-50 Ur Squamous Epith Cells Occasional Urine Bacteria Trace Preliminary micro results at discharge 12/31/23 18:49 Urine Culture - Preliminary Urine,Clean Catch Gram Positive Cocci DS: Diagnosis Discharge Diagnosis (1) Hyponatremia: Status: Acute Code(s): E87.1 - Hypo-osmolality and hyponatremia (2) Nausea vomiting and diarrhea: Status: Acute Code(s): R11.2 - Nausea with vomiting, unspecified; R19.7 - Diarrhea, unspecified (3) Acute kidney injury superimposed on CKD: Status: Resolved Code(s): N17.9 - Acute kidney failure, unspecified; N18.9 - Chronic kidney disease, unspecified (4) Diabetes mellitus type 2 in obese: Status: Acute Code(s): E11.69 - Type 2 diabetes mellitus with other specified complication; E66.9 - Obesity, unspecified Problem details: As I mentioned in the past having rigid A1c goals does not seem appropriate in this patient. However according to the patient and his daughter his last A1c which was done outside of our system was 6.5 which is excellent. Will continue with the current therapies. (5) HTN (hypertension): Status: Acute Code(s): I10 - Essential (primary) hypertension Qualifiers: Hypertension type: primary hypertension Qualified Code(s): I10 - Essential (primary) hypertension (6) Functional quadriplegia: Status: Chronic Code(s): R53.2 - Functional quadriplegia Meds Home Medications and Allergies Home Medications ?Medication ?Instructions ?Recorded ?Confirmed ?Type aspirin 81 mg chewable tablet 81 mg PO DAILY 03/29/23 12/31/23 History allopurinol 300 mg tablet 300 mg PO DAILY Gout 90 days #90 04/17/23 12/31/23 Rx tabs atorvastatin 40 mg tablet 40 mg PO HS Cholesterol 90 days 04/17/23 12/31/23 Rx #90 tabs budesonide 90 mcg/actuation breath 1 inh inhalation BID 30 days #1 ea 04/17/23 12/31/23 Rx activated powder inhaler isosorbide mononitrate 60 mg 60 mg PO DAILY High Blood Pressure 04/17/23 12/31/23 Rx tablet,extended release 24 hr 90 days #90 tabs montelukast 10 mg tablet 10 mg PO DAILY allergies 90 days 04/17/23 12/31/23 Rx #90 tabs nitroglycerin 0.4 mg sublingual 0.4 mg sublingual Q5MINP PRN chest 04/17/23 12/31/23 Rx tablet pain #90 tabs oxybutynin chloride 15 mg 15 mg PO DAILY Bladder 90 days #90 04/17/23 12/31/23 Rx tablet,extended release 24 hr tabs potassium chloride 20 mEq 20 meq PO DAILY Supplement 90 days 04/17/23 12/31/23 Rx tablet,extended release #90 tabs rivaroxaban 15 mg tablet 15 mg PO QPMWITHMEAL Blood 04/17/23 12/31/23 Rx thinner/AFIB 90 days #90 tabs tamsulosin 0.4 mg capsule 0.8 mg (2 x 0.4 mg) PO HS Prostate 04/17/23 12/31/23 Rx 90 days #180 caps albuterol sulfate 90 mcg/actuation 2 inh inhalation Q4HP PRN 05/12/23 12/31/23 History aerosol inhaler (Ventolin HFA) Shortness Of Breath insulin glargine 100 unit/mL (3 50 unit SQ DAILY 05/12/23 01/01/24 History mL) subcutaneous pen (Basaglar KwikPen U-100 Insulin) semaglutide 2 mg/dose (8 mg/3 mL) 2 mg SQ WEEKLY 06/14/23 12/31/23 History subcutaneous pen injector (Ozempic) aripiprazole 5 mg tablet 5 mg PO DAILY Mood #90 tabs 08/20/23 12/31/23 Rx diazepam 5 mg tablet 5 mg PO TID Tremors 90 days #270 09/04/23 01/01/24 Rx tabs escitalopram oxalate 10 mg tablet 10 mg PO DAILY 10/20/23 12/31/23 History levothyroxine 175 mcg tablet 175 mcg PO DAILYDM 10/20/23 12/31/23 History pantoprazole 40 mg tablet,delayed 40 mg PO DAILY 10/20/23 12/31/23 History release pregabalin 100 mg capsule 100 mg PO TID 10/20/23 12/31/23 History furosemide 40 mg tablet 40 mg PO DAILY Fluid #90 tabs 10/31/23 12/31/23 Rx nystatin 100,000 unit/gram topical 1 applic topical BID #60 grams 11/09/23 12/31/23 Rx powder ranolazine 500 mg tablet,extended 500 mg PO Q12H #180 tabs 11/13/23 12/31/23 Rx release,12 hr trazodone 100 mg tablet 100 mg PO HS insomnia #30 tabs 11/14/23 12/31/23 Rx sennosides 8.6 mg-docusate sodium 1 tab PO BID 30 days #60 tabs 11/25/23 12/31/23 Rx 50 mg tablet (Stimulant Laxative Plus) methenamine hippurate 1 gram tablet 1 g PO DAILY 12/11/23 12/31/23 History oxycodone 10 mg tablet 10 mg PO Q6H PRN pain #120 tabs 12/11/23 12/31/23 Rx spironolactone 25 mg tablet 25 mg PO BID 12/11/23 12/31/23 History topiramate 25 mg tablet (Topamax) 25 mg PO BID 12/11/23 12/31/23 History topiramate 50 mg tablet 50 mg PO BID WITH 25MG 12/11/23 12/31/23 History promethazine 25 mg rectal 25 mg OR Q6H PRN nausea and 12/28/23 12/31/23 Rx suppository vomiting #12 ea amoxicillin 875 mg-potassium 1 tab PO BID 7 days #14 tabs 01/02/24 Rx clavulanate 125 mg tablet bisacodyl 10 mg rectal suppository 10 mg OR Q72H PRN constipation #30 01/02/24 Rx ea doxycycline hyclate 100 mg capsule 100 mg PO BID #20 caps 01/03/24 Rx metoprolol succinate 25 mg 25 mg PO BID #180 tabs 01/03/24 Rx tablet,extended release 24 hr New Prescriptions to Start Prescriptions: remediospot clavulanate Bret Nieto bisacodyl Bret Nieto doxycycline hyclate Bret Nieto Allergies Allergy/AdvReac Type Severity Reaction Status Date / Time gabapentin [From Neurontin] Allergy Intermediate Rash Verified 12/11/23 14:19 Discharge Plan Disposition Patient Disposition: Home Health Service Condition: Fair Discharge Order Discharge Orders: Discharge Order (Routine); Ordered 01/02/24 Ordered By: Bret Nieto Follow up Plan Follow up with: Paulo Brody DO [Primary Care Provider] - 01/10/24 11:45 am Prescriptions/Medication Reconciliation: New bisacodyl 10 mg suppository 10 mg OR Q72H PRN (Reason: constipation) Qty: 30 0RF Rx Instructions: administer every 3 days to keep regular bowel movements amoxicillin-pot clavulanate 875-125 mg tablet 1 tab PO BID 7 Days Qty: 14 0RF doxycycline hyclate 100 mg capsule 100 mg PO BID Qty: 20 0RF Continued Ozempic 2 mg/dose (8 mg/3 mL) pen injector 2 mg SQ WEEKLY Rx Instructions: on mondays allopurinol 300 mg tablet 300 mg PO DAILY 90 Days Qty: 90 3RF atorvastatin 40 mg tablet 40 mg PO HS 90 Days Qty: 90 2RF isosorbide mononitrate 60 mg tablet extended release 24 hr 60 mg PO DAILY 90 Days Qty: 90 2RF montelukast 10 mg tablet 10 mg PO DAILY 90 Days Qty: 90 2RF nitroglycerin 0.4 mg tablet, sublingual 0.4 mg SUBLINGUAL Q5MINP PRN (Reason: chest pain) Qty: 90 0RF oxybutynin chloride 15 mg tablet extended release 24hr 15 mg PO DAILY 90 Days Qty: 90 2RF potassium chloride 20 mEq tablet extended release 20 meq PO DAILY 90 Days Qty: 90 2RF rivaroxaban 15 mg tablet 15 mg PO QPMWITHMEAL 90 Days Qty: 90 2RF tamsulosin 0.4 mg capsule 0.8 mg PO HS 90 Days Qty: 180 3RF budesonide 90 mcg/actuation aerosol powdr breath activated 1 inh inhalation BID 30 Days Qty: 1 4RF topiramate [Topamax] 25 mg tablet 25 mg PO BID oxycodone 10 mg tablet 10 mg PO Q6H PRN (Reason: pain) Qty: 120 0RF spironolactone 25 mg tablet 25 mg PO BID Patient Comments: TAKE ONE TABLET BY MOUTH TWICE DAILY FOR FLUID methenamine hippurate 1 gram tablet 1 g PO DAILY Patient Comments: TAKE ONE TABLET BY MOUTH EVERY DAY topiramate 50 mg tablet 50 mg PO BID Patient Comments: TAKE ONE TABLET BY MOUTH TWICE DAILY aripiprazole 5 mg tablet 5 mg PO DAILY Qty: 90 1RF diazepam 5 mg tablet 5 mg PO TID 90 Days Qty: 270 2RF furosemide 40 mg tablet 40 mg PO DAILY Qty: 90 4RF nystatin 100,000 unit/gram powder 1 applic topical BID Qty: 60 2RF ranolazine 500 mg tablet extended release 12 hr 500 mg PO Q12H Qty: 180 1RF Rx Instructions: do not break, crush, or chew tablet(s) trazodone 100 mg tablet 100 mg PO HS Qty: 30 0RF promethazine 25 mg suppository 25 mg OR Q6H PRN (Reason: nausea and vomiting) Qty: 12 2RF aspirin 81 mg tablet,chewable 81 mg PO DAILY sennosides-docusate sodium [Stimulant Laxative Plus] 8.6-50 mg Tablet 1 tab PO BID 30 Days Qty: 60 0RF albuterol sulfate [Ventolin HFA] 90 mcg/actuation HFA aerosol inhaler 2 inh INHALATION Q4HP PRN (Reason: Shortness Of Breath) Patient Comments: INHALE 2 PUFFS BY MOUTH EVERY 4 TO 6 HOURS NEEDED FOR SHORTNESS OF BREATH OR WHEEZING insulin glargine [Basaglar KwikPen U-100 Insulin] 100 unit/mL (3 mL) insulin pen 50 unit SQ DAILY levothyroxine 175 mcg tablet 175 mcg PO DAILYDM pantoprazole 40 mg tablet,delayed release (DR/EC) 40 mg PO DAILY escitalopram oxalate 10 mg tablet 10 mg PO DAILY pregabalin 100 mg capsule 100 mg PO TID Discontinued sulfamethoxazole-trimethoprim [Bactrim DS] 800-160 mg tablet 1 tab PO BID Rx Instructions: started on 12/23 for 10 days No Action metoprolol succinate 25 mg tablet extended release 24 hr 25 mg PO BID Qty: 180 3RF Problem Reconciliation Problems Reviewed?: Yes Patient Discharge Instructions ACTIVITY: Continue current activity DIET: continue same diet Additional Instructions: Patient to drink no more than 3 L of fluid a day to decrease delusional component with his sodium levels. Recommend things that he drinks have solute in them. Patient Instructions: DI for Hyponatremia, DI for Nausea -- Adult, Catheter- Associated Urinary Tract Infection Print Language: Upper Sorbian Providers Primary Care Provider: Paulo Brody Admit Provider: Bret Nieto Attending Provider: Bret Nieto
[2024-01-02 10:42] LABS: Hemoglobin 8.7 g/dL (14.1-18.0)
[2024-01-02] MEDS: BISACODYL 10MG SUPP 10 MG RC (11:17)
[2024-01-02] MEDS: humaLOG 100 UNITS/ML 10ML VIAL (SSI) SQ (11:28)
--- NOTE | 2024-01-02 11:34 | SW/DCPLANNER ---
Addendum entered by Alley Velasquez 01/02/24 12:44: Lilli sullivan/ [facility] stated that services will resume for this patient. Addendum entered by Lyia Alex RN 01/02/24 12:07: The patient asked about possibly going to swing bed for therapy. We discussed this and was going to order PT/OT. The patient's daughter called and stated that whenever the patient is in the hospital the plan is for him to go home with home health. Hospice has evaluated recently and not accepted at this time. She states her mom helps the patient and she does as well. I went back to speak with the patient and he states he does want to go home with home health today. Original Note: This patient is currently established w/ [facility]. I will continue to follow up w/ [facility] and fax updated patient information at time of discharge.
[2024-01-02 11:36] LABS: Hemoglobin A1C 6.7 % (4.0-6.0)
[2024-01-02 11:37] LABS: POC Glucose,Bedside 165 (70-110)
[2024-01-02 12:00] VITALS: BP 110/60; PULSE 68; PULSE 70; RESP 16; TEMP 36.6; O2SAT 98
--- NOTE | 2024-01-04 10:39 | CARE MANAGER ---
Called and spoke with patient's daughter regarding recent discharge. She stated that patient is doing well and has started new medication prescribed at discharge. She was unaware of scheduled f/u appt and now plans to call and reschedule r/t she is unable to transport him that day.
== END 2024-01-02 14:17 | disposition home health service (06) | DRG 640 ==
LOC: ER 20:12 → 2ND 20:16
PROVIDERS: Physician Assistant; Admitting Provider Internal Medicine Adolescent Medicine; Emergency Provider Emergency Medicine; PCP Internal Medicine; Visit Provider Internal Medicine Adolescent Medicine
DX: E87.1 Hypo-osmolality and hyponatremia (principal); R53.2 Functional quadriplegia; N17.9 Acute kidney failure, unspecified; N18.2 Chronic kidney disease, stage 2 (mild); E11.22 Type 2 diabetes mellitus with diabetic chronic kidney disease; E11.69 Type 2 diabetes mellitus with other specified complication; I12.9 Hypertensive chronic kidney disease with stage 1 through stage 4 chronic kidney disease, or unspecified chronic kidney disease; Z79.899 Other long term (current) drug therapy; Z79.4 Long term (current) use of insulin; Z79.85 Long-term (current) use of injectable non-insulin antidiabetic drugs; Z79.01 Long term (current) use of anticoagulants; I48.91 Unspecified atrial fibrillation; R33.8 Other retention of urine; Z73.6 Limitation of activities due to disability
CPT/HCPCS: 36415; 74177; 80048; 80053; 81001; 82009; 82803; 82962; 83036; 83605; 83690; 83735; 84540; 85025; 87081; 87086; 87088; 87186; 94640; 99285; J2405; J3475; J7120; Q9967

== ENCOUNTER 2024-02-11 09:49 | Outpatient (CLI) | payer MEDICARE, OTHER, SELFPAY ==
[2024-02-11 18:54] LABS: Creatinine,Urine Random 35 mg/dL (Not Estab.)
[2024-02-11 19:06] LABS: Basophils # 0.1 K/mm3 (0-0.2); Basophils % 0.9 % (0.1-2.0); Eosinophils # 0.1 K/mm3 (0.0-0.4); Eosinophils % 2.3 % (0.1-12.0); Hematocrit 43.2 % (42.0-52.0); Hemoglobin 12.3 g/dL (14.1-18.0); Lymphocytes # 1.9 K/mm3 (0.7-4.5); Mean Corpuscular HGB Conc 28.5 g/dL (31.8-35.4); Mean Corpuscular Hemoglobin 22.3 pg (27.0-31.2); Mean Corpuscular Volume 78.3 fl (80-94); Mean Platelet Volume 9.2 fl (7.4-10.4); Monocytes # 0.4 K/mm3 (0.1-1.0); Monocytes % 7.8 % (1.7-9.3); Neutrophils # 2.8 K/mm3 (1.8-7.8); Platelet Count 304 K/mm3 (142-424); Red Blood Count 5.52 M/mm3 (4.60-6.20); Red Cell Distribution Width 18.2 % (11.5-17.5); White Blood Count 5.3 K/mm3 (4.8-10.8)
[2024-02-11 19:11] LABS: Microalbumin > 190.000 mg/L (0-16.7); Microalbumin/Creatinine Ratio 542.8
[2024-02-11 19:51] LABS: Hemoglobin A1C 6.3 % (4.0-6.0)
[2024-02-11 22:13] LABS: Chloride 106 mmol/L (98-107)
[2024-02-11 22:14] LABS: Potassium 4.6 mmoL/L (3.5-5.1); Sodium 139 mmol/L (136-145)
[2024-02-11 22:16] LABS: Alanine Aminotransferase 31 U/L (12-78); Anion Gap 16.6 mEq/L (5-15); Aspartate Amino Transferase 51 U/L (17-59); Blood Urea Nitrogen 3 mg/dl (9-20); Carbon Dioxide 21 mmol/L (22.0-30.0); Estimated Glomerular Filt Rate 75 ml/min (>60); GFR (African American) 90 ML/MIN (>60)
[2024-02-11 22:17] LABS: Albumin/Globulin Ratio 1.3 (1.1-1.8); Alkaline Phosphatase 90 U/L (38-126); Bilirubin,Total 0.6 mg/dl (0.2-1.3); Calcium 9.1 mg/dl (8.4-10.2); Glucose 111 mg/dl (74-100)
== END 2024-02-11 23:59 | disposition home or self-care (01) ==
LOC: LAB.DROPOF 02-12 09:50
PROVIDERS: PCP Internal Medicine; Visit Provider Internal Medicine
DX: I10 Essential (primary) hypertension (principal); R53.2 Functional quadriplegia; E87.1 Hypo-osmolality and hyponatremia; E66.9 Obesity, unspecified; E11.69 Type 2 diabetes mellitus with other specified complication
CPT/HCPCS: 80053; 82043; 82570; 83036; 84443; 85025

== ENCOUNTER 2024-02-25 13:17 | Outpatient (CLI) | payer MEDICARE, OTHER, SELFPAY ==
[2024-02-25 13:39] LABS: Microscopic, Urine URINE MICROSCOPIC (MICROSCOPIC)
[2024-02-25 15:04] LABS: Appearance,Urine CLEAR (Clear); Bilirubin,Urine Negative (Negative); Blood, Urine TRACE-I (Negative); Color,Urine YELLOW (Yellow); Glucose,Urine (UA) TRACE (Negative); Ketones,Urine Negative (Negative); Leukocyte Esterase,Urine 3+ (Negative); Nitrate,Urine Negative (Negative); Protein,Urine Negative (Negative); Urobilinogen,Urine 0.2 EU/dl (0.2)
[2024-02-25 15:21] LABS: Bacteria,Urine 1+ /lpf; RBC,Urine Occasional #/hpf (0-3); Squamous Epithelial Cell,Urine Occasional #/hpf (0-5); WBC,Urine 20-50 #/hpf (0-3)
[2024-02-25 15:42] LABS: Free T4 (Free Thyroxine) 1.74 ng/dl (0.78-2.19)
[2024-02-27 11:15] LABS: Thyroid Peroxidase Antibodies 45 IU/mL (0-34); Triiodothyronine (T3) Free 2.1 pg/mL (2.0-4.4)
== END 2024-02-25 23:59 | disposition home or self-care (01) ==
LOC: LAB.DROPOF 13:18
PROVIDERS: PCP Internal Medicine; Visit Provider Internal Medicine
DX: E03.9 Hypothyroidism, unspecified (principal); R30.9 Painful micturition, unspecified
CPT/HCPCS: 81001; 84439; 84443; 84481; 86376; 87086; 87088; 87186

== ENCOUNTER 2024-04-02 10:52 | Observation (INO) | payer MEDICARE, OTHER, SELFPAY ==
[2024-04-02] VITALS (14 sets, daily range): BP systolic 84–109; BP diastolic 49–67; PULSE 80–90; RESP 12–18; TEMP 36.6; O2SAT 97–100; BMI 28.8
--- NOTE | 2024-04-02 10:06 | ECG_ITS ---
APPROVED REPORT Exam: Resting ECG HR:88 bpm ECG Measurements Heart Rate 88 AXES LA 171 P 14 QRSd 105 QRS -43 QT 353 T 12 QTc 399 Conclusion SINUS RHYTHM LEFT AXIS DEVIATION [QRS AXIS < -30] VOLTAGE CRITERIA FOR LVH [MEETS CRITERIA IN ONE OF: R(aVL), S(V1), R(V5), R(V5/V6)+S(V1)] POSSIBLE ANTERIOR MYOCARDIAL INFARCTION , PROBABLY OLD [30 ms Q WAVE IN V3/V4, OR R < 0.2 mV IN V4] ABNORMAL ECG UNCONFIRMED REPORT Electronically signed by : JAYDEN CASEY, 04/03/2024 06:49:41
--- NOTE | 2024-04-02 10:20 | PC.NURSE ---
DR KEENE AT BEDSIDE
--- NOTE | 2024-04-02 10:24 | XR_ITS ---
PROCEDURE INFORMATION: Exam: XR Chest Exam date and time: 04/02/2024 10:23 AM Age: 69 years old Clinical indication: Other: Chest pain; Additional info: Weakness cp TECHNIQUE: Imaging protocol: Radiologic exam of the chest. Views: 1 view. COMPARISON: 1. CT ANGIO CHEST PE PROTOCOL 12/24/2023 12:52 PM 2. CR XR CHEST PORTABLE 11/23/2023 2:42 AM 3. CR XR CHEST PORTABLE 05/11/2023 10:50 PM FINDINGS: Airway: Rightward deviation of the trachea due to a left thyroid goiter is again noted Lungs: Chronic curvilinear and reticulonodular opacities in the left lower lung. No confluent airspace consolidation or nodules. Pleural spaces: No pleural effusion. No pneumothorax. Heart/Mediastinum: No abnormalities. No cardiomegaly. No pulmonary vascular congestion. Bones/joints: No fractures or bone lesions. IMPRESSION: No acute findings in the chest. No interval changes.
[2024-04-02 10:36] LABS: Albumin Level 4.3 g/dl (3.5-5.0); Chloride 98 mmol/L (98-107); Potassium 3.9 mmoL/L (3.5-5.1); Sodium 135 mmol/L (136-145)
[2024-04-02 10:37] LABS: Basophils # 0.1 K/mm3 (0-0.2); Basophils % 0.4 % (0.1-2.0); Eosinophils # 0.2 K/mm3 (0.0-0.4); Hematocrit 36.9 % (42.0-52.0); Hemoglobin 11.7 g/dL (14.1-18.0); Lymphocytes # 2.8 K/mm3 (0.7-4.5); Lymphocytes % 23.6 % (10-50); Mean Corpuscular HGB Conc 31.7 g/dL (31.8-35.4); Mean Corpuscular Hemoglobin 22.3 pg (27.0-31.2); Mean Corpuscular Volume 70.3 fl (80-94); Mean Platelet Volume 7.2 fl (7.4-10.4); Monocytes # 0.6 K/mm3 (0.1-1.0); Monocytes % 5.3 % (1.7-9.3); Neutrophils # 8.1 K/mm3 (1.8-7.8); Neutrophils % 68.6 % (37.0-80.0); Platelet Count 298 K/mm3 (142-424); Red Blood Count 5.24 M/mm3 (4.60-6.20); Red Cell Distribution Width 19.6 % (11.5-17.5); White Blood Count 11.8 K/mm3 (4.8-10.8)
[2024-04-02 10:39] LABS: Alanine Aminotransferase 19 U/L (12-78); Albumin/Globulin Ratio 1.4 (1.1-1.8); Alkaline Phosphatase 84 U/L (38-126); Anion Gap 12.9 mEq/L (5-15); Aspartate Amino Transferase 28 U/L (17-59); Bilirubin,Total 0.5 mg/dl (0.2-1.3); Blood Urea Nitrogen 15 mg/dl (9-20); Calcium 9.6 mg/dl (8.4-10.2); Carbon Dioxide 28 mmol/L (22.0-30.0); Estimated Glomerular Filt Rate 55 ml/min (>60); GFR (African American) 67 ML/MIN (>60); Globulin 3.1 g/dL (1.3-3.2); Glucose 221 mg/dl (74-100); Lipase 149 U/L (23-300); Total Protein,Serum 7.4 g/dl (6.3-8.2)
--- NOTE | 2024-04-02 10:43 | ED_ITS ---
Discharge Plan Disposition Patient Disposition: Admitted Chief Complaint: Syncope Prescriptions Prescriptions: No Action Ozempic 2 mg/dose (8 mg/3 mL) pen injector 2 mg SQ WEEKLY Rx Instructions: on mondays allopurinol 300 mg tablet 300 mg PO DAILY 90 Days Qty: 90 3RF atorvastatin 40 mg tablet 40 mg PO HS 90 Days Qty: 90 2RF isosorbide mononitrate 60 mg tablet extended release 24 hr 60 mg PO DAILY 90 Days Qty: 90 2RF montelukast 10 mg tablet 10 mg PO DAILY 90 Days Qty: 90 2RF nitroglycerin 0.4 mg tablet, sublingual 0.4 mg SUBLINGUAL Q5MINP PRN (Reason: chest pain) Qty: 90 0RF oxybutynin chloride 15 mg tablet extended release 24hr 15 mg PO DAILY 90 Days Qty: 90 2RF potassium chloride 20 mEq tablet extended release 20 meq PO DAILY 90 Days Qty: 90 2RF rivaroxaban 15 mg tablet 15 mg PO QPMWITHMEAL 90 Days Qty: 90 2RF tamsulosin 0.4 mg capsule 0.8 mg PO HS 90 Days Qty: 180 3RF budesonide 90 mcg/actuation aerosol powdr breath activated 1 inh inhalation BID 30 Days Qty: 1 4RF topiramate [Topamax] 25 mg tablet 25 mg PO BID spironolactone 25 mg tablet 25 mg PO BID Patient Comments: TAKE ONE TABLET BY MOUTH TWICE DAILY FOR FLUID methenamine hippurate 1 gram tablet 1 g PO DAILY Patient Comments: TAKE ONE TABLET BY MOUTH EVERY DAY topiramate 50 mg tablet 50 mg PO BID Patient Comments: TAKE ONE TABLET BY MOUTH TWICE DAILY oxycodone 10 mg tablet 10 mg PO Q6H PRN (Reason: pain) Qty: 120 0RF tizanidine 6 mg capsule 6 mg PO TID PRN (Reason: muscle spasticity) Qty: 90 1RF oxycodone 10 mg tablet 10 mg PO Q6H PRN (Reason: pain) Qty: 120 0RF diazepam 5 mg tablet 5 mg PO TID 90 Days Qty: 270 2RF pregabalin 100 mg capsule 100 mg PO BID Qty: 42 0RF aripiprazole 5 mg tablet 5 mg PO DAILY Qty: 90 1RF furosemide 40 mg tablet 40 mg PO DAILY Qty: 90 4RF nystatin 100,000 unit/gram powder 1 applic topical BID Qty: 60 2RF ranolazine 500 mg tablet extended release 12 hr 500 mg PO Q12H Qty: 180 1RF Rx Instructions: do not break, crush, or chew tablet(s) promethazine 25 mg suppository 25 mg UT Q6H PRN (Reason: nausea and vomiting) Qty: 12 2RF metoprolol succinate 25 mg tablet extended release 24 hr 25 mg PO BID Qty: 180 3RF (DME) blood-glucose meter Kit See Rx Instructions .ROUTE .MEDSUPPLY Qty: 1 0RF Rx Instructions: As directed or bid Whatever the insurance will pay for along with the test stripes and lancets aspirin 81 mg tablet,chewable 81 mg PO DAILY sennosides-docusate sodium [Stimulant Laxative Plus] 8.6-50 mg Tablet 1 tab PO BID 30 Days Qty: 60 0RF albuterol sulfate [Ventolin HFA] 90 mcg/actuation HFA aerosol inhaler 2 inh INHALATION Q4HP PRN (Reason: Shortness Of Breath) Patient Comments: INHALE 2 PUFFS BY MOUTH EVERY 4 TO 6 HOURS NEEDED FOR SHORTNESS OF BREATH OR WHEEZING insulin glargine [Basaglar KwikPen U-100 Insulin] 100 unit/mL (3 mL) insulin pen 60 unit SQ DAILY levothyroxine 175 mcg tablet 175 mcg PO DAILYDM pantoprazole 40 mg tablet,delayed release (DR/EC) 40 mg PO DAILY escitalopram oxalate 10 mg tablet 10 mg PO DAILY bisacodyl 10 mg suppository 10 mg UT Q72H PRN (Reason: constipation) Qty: 30 0RF Rx Instructions: administer every 3 days to keep regular bowel movements doxycycline hyclate 100 mg capsule 100 mg PO BID Qty: 20 0RF Referrals Follow up/Referrals: Paulo Brody DO [Primary Care Provider] - See instructions Clinical Impressions Clinical Impression: Hypotension, Syncope, STEPHANI (acute kidney injury), Sepsis Instructions Patient Instructions: DI for Syncope in Adults (Fainting), DI for Syncope in Children (Fainting) Print Language Print Language: Persian Discharge ED Provider: Zenon Vora HPI General Chief Complaint: Syncope Stated Complaint: SOA Time Seen by Provider: 04/02/24 10:55 History of Present Illness HPI narrative: Please note that above description of symptoms, in this electronic medical record under categorization of recalled from ER triage doctor by RN are reflective of an initial nursing assessment, however, is not reflective of my full history and physical exam that was personally taken and clarified. Consequentially, this preceding description of symptoms, which may include the patient's categorized chief complaint in the EMR, do not reflect my personal clinical impression, and the ultimate description of history of present illness and patient stated complaints should be deferred to this section of the note. Unless stated otherwise or congruent with this section of the note, additional signs, symptoms, or incongruence should be interpreted as inaccurate with my clinical impression. Related Data Home Medications ?Medication ?Instructions ?Recorded ?Confirmed aspirin 81 mg chewable tablet 81 mg PO DAILY 03/29/23 02/11/24 albuterol sulfate 90 mcg/actuation 2 inh inhalation Q4HP PRN 05/12/23 02/11/24 aerosol inhaler (Ventolin HFA) Shortness Of Breath semaglutide 2 mg/dose (8 mg/3 mL) 2 mg SQ WEEKLY 06/14/23 02/11/24 subcutaneous pen injector (Ozempic) escitalopram oxalate 10 mg tablet 10 mg PO DAILY 10/20/23 02/11/24 levothyroxine 175 mcg tablet 175 mcg PO DAILYDM 10/20/23 02/11/24 pantoprazole 40 mg tablet,delayed 40 mg PO DAILY 10/20/23 02/11/24 release methenamine hippurate 1 gram tablet 1 g PO DAILY 12/11/23 02/11/24 spironolactone 25 mg tablet 25 mg PO BID 12/11/23 02/11/24 topiramate 25 mg tablet (Topamax) 25 mg PO BID 12/11/23 02/11/24 topiramate 50 mg tablet 50 mg PO BID WITH 25MG 12/11/23 02/11/24 insulin glargine 100 unit/mL (3 60 unit SQ DAILY 02/11/24 02/11/24 mL) subcutaneous pen (Basaglar KwikPen U-100 Insulin) Previous Rx's ?Medication ?Instructions ?Recorded allopurinol 300 mg tablet 300 mg PO DAILY Gout 90 days #90 04/17/23 tabs atorvastatin 40 mg tablet 40 mg PO HS Cholesterol 90 days 04/17/23 #90 tabs budesonide 90 mcg/actuation breath 1 inh inhalation BID 30 days #1 ea 04/17/23 activated powder inhaler isosorbide mononitrate 60 mg 60 mg PO DAILY High Blood Pressure 04/17/23 tablet,extended release 24 hr 90 days #90 tabs montelukast 10 mg tablet 10 mg PO DAILY allergies 90 days 04/17/23 #90 tabs nitroglycerin 0.4 mg sublingual 0.4 mg sublingual Q5MINP PRN chest 04/17/23 tablet pain #90 tabs oxybutynin chloride 15 mg 15 mg PO DAILY Bladder 90 days #90 04/17/23 tablet,extended release 24 hr tabs potassium chloride 20 mEq 20 meq PO DAILY Supplement 90 days 04/17/23 tablet,extended release #90 tabs rivaroxaban 15 mg tablet 15 mg PO QPMWITHMEAL Blood 04/17/23 thinner/AFIB 90 days #90 tabs tamsulosin 0.4 mg capsule 0.8 mg (2 x 0.4 mg) PO HS Prostate 04/17/23 90 days #180 caps aripiprazole 5 mg tablet 5 mg PO DAILY Mood #90 tabs 08/20/23 furosemide 40 mg tablet 40 mg PO DAILY Fluid #90 tabs 10/31/23 nystatin 100,000 unit/gram topical 1 applic topical BID #60 grams 11/09/23 powder ranolazine 500 mg tablet,extended 500 mg PO Q12H #180 tabs 11/13/23 release,12 hr sennosides 8.6 mg-docusate sodium 1 tab PO BID 30 days #60 tabs 11/25/23 50 mg tablet (Stimulant Laxative Plus) promethazine 25 mg rectal 25 mg UT Q6H PRN nausea and 12/28/23 suppository vomiting #12 ea bisacodyl 10 mg rectal suppository 10 mg UT Q72H PRN constipation #30 01/02/24 ea doxycycline hyclate 100 mg capsule 100 mg PO BID #20 caps 01/03/24 metoprolol succinate 25 mg 25 mg PO BID #180 tabs 01/03/24 tablet,extended release 24 hr diazepam 5 mg tablet 5 mg PO TID Tremors 90 days #270 02/11/24 tabs oxycodone 10 mg tablet 10 mg PO Q6H PRN pain #120 tabs 02/11/24 oxycodone 10 mg tablet 10 mg PO Q6H PRN pain #120 tabs 02/11/24 pregabalin 100 mg capsule 100 mg PO BID #42 caps 02/11/24 tizanidine 6 mg capsule 6 mg PO TID PRN muscle spasticity 02/11/24 #90 caps blood-glucose meter #1 ea 03/19/24 Allergies Allergy/AdvReac Type Severity Reaction Status Date / Time gabapentin [From Neurontin] Allergy Intermediate Rash Verified 02/11/24 08:25 [facility] Disclaimer: The information contained in this section may have been updated after the patient was seen, as this information can be updated by other users. Medical History Tachycardia Acute exacerbation of chronic obstructive pulmonary disease Acute urinary retention Chronic pain This patient has multiple reasons to have chronic pain including, diabetic peripheral polyneuropathy, cauda equina syndrome, and other issues. We will continue his oxycodone but I would prefer to do this without the acetaminophen. I will give him up to 4 tablets/day of oxycodone 10 mg. Goal is to keep him comfortable as best as possible. He is on diazepam as well and this is greatly concerning but we will discuss it at his next visit. At risk for osteoporosis Diabetes mellitus type 2 in obese As I mentioned in the past having rigid A1c goals does not seem appropriate in this patient. However according to the patient and his daughter his last A1c which was done outside of our system was 6.5 which is excellent. Will continue with the current therapies. At risk for polypharmacy Unfortunately patient is unable to get palliative care. I will try to limit the burden of visits to the clinic. Will see him back in 3 months. At that time they can certainly call in and if they do not come out I would just say will refill another 3 months. Pneumonia Healthcare-associated pneumonia Chronic respiratory failure with hypoxia Chronic indwelling Rodriguez catheter I reviewed the UA that was obtained recently. This is typical for an indwelling catheter and I do not think there is anything further to do at this point. Peritracheal mass Acute urinary retention Cauda equina syndrome Probably causing some of his pain. Continue his pain medications which appear to be controlling his pain fairly well. PDMP was checked. Paralysis, progressive Encounter for immunization Atypical angina Chest pain Abnormal EKG Edema Leg pain, bilateral SOB (shortness of breath) Chronic systolic heart failure CKD (chronic kidney disease) stage 2, GFR 60-89 ml/min Diabetes mellitus COPD (chronic obstructive pulmonary disease) HLD (hyperlipidemia) Patient is on atorvastatin. Last lipid panel does reveal a total triglyceride of 108 total cholesterol 139 LDL of 78 VLDL of 22 HDL of 39. This really is good panel and I would continue atorvastatin 40. HTN (hypertension) Surgical History H/O repair of rotator cuff Family History Other Diabetes Hypertension Stroke Social History Smoking Status: Former smoker tobacco type: cigarettes alcohol intake: never substance use type: denies use current occupational status: unemployed Travel in the last 8 weeks: None household members: spouse housing: house caffeine: Yes Other Medical History Have you received the Flu Vaccine for this season: No Have you received the Pneumonia Vaccine: No ROS Obtained: Yes All systems reviewed & no additional complaints except as documented Physical Exam General General appearance: alert and in no apparent distress Comment: Chronically ill, no acute distress Neck Neck exam: Present trachea midline Chest Chest inspection: Present normal inspection and symmetric chest wall rise Respiratory Respiratory exam: Present normal lung sounds bilaterally and other (2 L nasal cannula in place, home oxygen); Absent respiratory distress, wheezes, stridor, accessory muscle use or prolonged expiratory phase Cardiovascular Cardiovascular exam: Present regular rate, normal rhythm and other (Pulses equal and symmetric in upper and lower extremities) Abdominal Exam Abdominal exam: Present soft; Absent distention, tenderness, guarding or rebound Extremities Exam Extremities exam: Absent edema Neurological Exam Neurological exam: Present alert, oriented X3, CN II-XII intact and motor sensory deficit (Patient with 3 out of 5 strength bilateral upper and lower extremities) Skin Skin exam: Present warm and dry; Absent cyanosis, diaphoresis or pallor HEART Score HEART Score HEART Score assessment performed?: Yes HEART Score: 5 Critical Care Critical Care Time Critical Care Time: Yes (ID) Attestation: On 04/02/24, the high probability of a clinically significant, sudden or life threatening deterioration of the following system(s) required my full and direct attention, intervention and personal management. The time I documented below is in addition to time spent performing reported procedures but includes the following listed in this critical care notation. Total Time Total Critical Care Time: 35 Medical Decision Making Medical Records Medical records reviewed: Yes I reviewed the patient's medical records. He[place] Inquiry Pt receiving controlled substance: No He[place] was queried for this patient: No Vital Signs Vital Signs: 04/02/24 10:24 04/02/24 10:30 Temperature 97.9 F Temperature Source Oral Pulse Rate 87 Pulse Rate [Apical] 85 Respiratory Rate 18 12 Blood Pressure 96/57 L Blood Pressure [Right Arm] 109/67 L Blood Pressure Mean [Right Arm] 81 Blood Pressure Source [Right Arm] Automatic Cuff Blood Pressure Position [Right Arm] Sitting 02 Sat by Pulse Oximetry 99 97 Oxygen Delivery Method Nasal Cannula Oxygen Flow Rate (LPM) 2 Lab Data Labs: Lab Results 04/02/24 10:10: WBC 11.8 H, RBC 5.24, Hgb 11.7 L, Hct 36.9 L, MCV 70.3 L, MCH 22.3 L, MCHC 31.7 L, RDW 19.6 H, Plt Count 298, MPV 7.2 L, Neut % (Auto) 68.6, Lymph % (Auto) 23.6, [place] % (Auto) 5.3, Eos % (Auto) 2.0, Baso % (Auto) 0.4, N eut # (Auto) 8.1 H, Lymph # (Auto) 2.8, [place] # (Auto) 0.6, Eos # (Auto) 0.2, Baso # (Auto) 0.1, PT 12.9 H, INR 1.17 H, APTT 38.9 H, Sodium 135 L, Potassium 3.9, Chloride 98, Carbon Dioxide 28, Anion Gap 12.9, BUN 15, Creatinine 1.30 H, Estimated GFR 55 L, Est GFR ( Amer) 67, Glucose 221 H, Calcium 9.6, Total Bilirubin 0.5, AST 28, ALT 19, Alkaline Phosphatase 84, Troponin I < 0.01, NT-Pro-B Natriuret Pep 65.6, Total Protein 7.4, Albumin 4.3, Globulin 3.1, Albumin/Globulin Ratio 1.4, Lipase 149 04/02/24 10:30: Lactate 1.8 04/02/24 13:06: Urine Color Yellow, Urine Appearance Cloudy, Urine pH 6.0, Ur Specific [place] 1.025, Urine Protein Trace, Urine Glucose (UA) Negative, Urine Ketones Negative, Urine Blood 2+ A, Urine Nitrate Positive, Urine Bilirubin Negative, Urine Urobilinogen 0.2, Ur Leukocyte Esterase 2+ A, Urine RBC TNP, Urine WBC TNP, Ur Squamous Epith Cells TNP, Ur Transition Epith Cell TNP, Ur Renal Epithelial Cell TNP, Calcium Carbonate Cryst TNP, Calcium Phosphate Cryst TNP, Calcium Oxalate Crystal TNP, Cystine Crystals TNP, Uric Acid Crystals TNP, Triple Phos Crystals TNP, Tyrosine Crystals TNP, Other Crystals TNP, Amorphous Sediment TNP, Other Sediment TNP, Urine Bacteria TNP, Fatty Casts TNP, Hyaline Casts TNP, Fine Granular Casts TNP, Coarse Granular Casts TNP, Waxy Casts TNP, RBC Casts TNP, WBC Casts TNP, Other Casts TNP, Urine Mucus TNP, Urine Trichomonas TNP, Urine Yeast TNP, Urine Sperm TNP 04/02/24 10:10 04/02/24 10:10 Response Orders (Tests/Meds): ED MEDICATIONS Generic Name Dose Route Start Last Admin Trade Name Freq PRN Reason Stop Dose Admin Acetaminophen 650 mg 04/02/24 13:44 Acetaminophen 325mg Tab PO 05/02/24 13:43 Q4HP PRN Fever or Mild Pain (1-3) Enoxaparin Sodium 40 mg 04/03/24 09:00 Enoxaparin 40mg/0.4ml Syringe SUBCUT 05/03/24 08:59 DAILY DORYS Lactated Ringer's 1,000 mls @ 75 mls/hr 04/02/24 13:45 Lactated Ringer's 1000 Ml Bag IV 05/02/24 13:44 .[id number] [facility] Ondansetron HCl 4 mg 04/02/24 13:44 Ondansetron 4mg/2ml Vial IV 05/02/24 13:43 Q8HP PRN Nausea Discontinued Medications Generic Name Dose Route Start Last Admin Trade Name Freq PRN Reason Stop Dose Admin Aspirin 324 mg 04/02/24 10:24 04/02/24 10:54 Aspirin 81mg Chewable Tablet PO 04/02/24 10:25 324 mg ONCE ONE Administration Sodium Chloride 1,000 mls @ 999 mls/hr 04/02/24 10:37 04/02/24 10:54 Sod Chlor 0.9% 1000ml Bag IV 04/02/24 11:37 999 mls/hr .Q1H1M ONE Administration Cefepime HCl 2 gm/ Sodium 100 mls @ 200 mls/hr 04/02/24 13:15 04/02/24 13:31 Chloride IV 04/02/24 13:44 200 mls/hr ONCE ONE Administration ORDERS Category Date Time Status XR chest portable Stat Exams 04/02/24 10:24 Completed Complete Blood Count Auto Diff [facility] Lab 04/03/24 06:00 Ordered Complete Blood Count Auto Diff AMLAB Lab 04/04/24 06:00 Ordered Complete Blood Count Auto Diff AMLAB Lab 04/05/24 06:00 Ordered Complete Blood Count Auto Diff AMLAB Lab 04/06/24 06:00 Ordered Complete Blood Count Auto Diff AMLAB Lab 04/07/24 06:00 Ordered Complete Blood Count Auto Diff Stat Lab 04/02/24 10:10 Completed Comprehensive Metabolic Panel [facility] Lab 04/03/24 06:00 Ordered Comprehensive Metabolic Panel AML[facility] Lab 04/04/24 06:00 Ordered Comprehensive Metabolic Panel AMLAB Lab 04/05/24 06:00 Ordered Comprehensive Metabolic Panel AMLAB Lab 04/06/24 06:00 Ordered Comprehensive Metabolic Panel AMLAB Lab 04/07/24 06:00 Ordered Comprehensive Metabolic Panel Stat Lab 04/02/24 10:10 Completed HIV (1&2) Antibody Rapid Stat Lab 04/02/24 10:13 Received Hep C Ab with Reflex to RNA Stat Lab 04/02/24 10:13 Received Lactic Acid Stat Lab 04/02/24 10:30 Completed Lipase Stat Lab 04/02/24 10:10 Completed Magnesium AMLAB Lab 04/03/24 06:00 Ordered Magnesium AMLAB Lab 04/04/24 06:00 Ordered Magnesium AMLAB Lab 04/05/24 06:00 Ordered Magnesium AMLAB Lab 04/06/24 06:00 Ordered Magnesium AMLAB Lab 04/07/24 06:00 Ordered NT Pro Brain Natriuretic Pep. Stat Lab 04/02/24 10:10 Completed PT INR [Prothrombin Time INR] Stat Lab 04/02/24 10:10 Completed PTT [Activated Partial Thrombo Time] Stat Lab 04/02/24 10:10 Completed Troponin I Stat Lab 04/02/24 10:10 Completed UA [Urinalysis and Microscopic] Stat Lab 04/02/24 13:06 Completed Blood Culture Stat Micro 04/02/24 11:03 Received Urine Culture Stat Micro 04/02/24 13:06 Received Tissue Perfus/Sepsis Re-Eval Sepsis Re-Evaluation Performed: Yes Date Performed: 04/02/24 Time Performed: 13:00 [facility] Narrative Medical Decision Narrative: Chronically ill 69-year-old male history of hypertension, hyperlipidemia, COPD on 2 L nasal cannula, type 2 diabetes, CKD, chronic indwelling Rodriguez catheter secondary to cauda equina syndrome presenting with chest pain. Patient was transferring from wheelchair getting ready to go to a doctor's appointment today, had vasovagal near syncope. States that he has been feeling weak since that time. Chest pain that substernal, does not radiate with no other associated symptoms. Not currently having chest pain, feels closer to his baseline just since arrival prior to interventions. History was obtained via conversation with patient and EMS. On arrival, patient hemodynamically stable, alert, oriented x4, appropriate, GCS 15, moving all extremities spontaneously, pupils equal and reactive to light. Full physical exam performed and significant for chronically ill-appearing male in no acute distress. 2 L nasal cannula oxygen is in place which is baseline. Cardiac exam within limits, lungs are clear bilaterally. Patient has 3 out of 5 strength in bilateral upper and lower extremities, this is normal, per patient on interview. Alert and oriented. Differential includes ACS, IN, pneumothorax, pneumonia, UTI, sepsis, among others. Patient was given 2 g cefepime, fluid bolus for symptomatic management and correction of underlying abnormalities. Patient placed on continuous cardiac monitoring and continuous pulse ox with initial blood pressure 109/67, heart rate 85, saturation 99% on room air. Independent interpretation of EKG shows sinus rhythm left axis deviation no acute ischemic change. Intervals within normal limits. Workup independently interpreted and significant for leukocytosis, STEPHANI, normal troponin and BNP. Urinalysis with concern for pyelonephritis in the setting of indwelling Rodriguez. On independent interpretation of imaging, no acute cardiopulmonary airspace disease. See radiology read for full review of final results. Patient sepsis bolus continued for 30 cc/kg because continuing to be hypotensive. Hospital medicine contacted and case was discussed, patient to be admitted for hypotension, UTI, STEPHANI, syncope and concern for sepsis. Because patient high risk for clinical decompensation, deemed appropriate for inpatient admission. Results were relayed to patient who voiced understanding and patient was agreeable to inpatient admission and management. Patient was admitted to the hospital for further definitive management. Qa Developer disclaimer Much of this encounter note is an electronic title 1 tutor spoken language to printed text. Electronic title 1 tutor of the spoken language may permit errors. Although I have reviewed the note, some errors may still exist.
[2024-04-02 10:49] LABS: NT Pro Brain Natriuretic Pep. 65.6 pg/mL (0-125)
[2024-04-02] MEDS: ASPIRIN 81MG CHEWABLE TABLET 324 MG PO (10:54)
[2024-04-02] MEDS: 0.9 % SODIUM CHLORIDE 1000ML 1,000 ML 999 ML IV (10:54)
[2024-04-02 10:55] LABS: Troponin I < 0.01 ng/ml (0.00-0.034)
[2024-04-02 11:00] LABS: Lactic Acid 1.8 mmol/L (0.7-2.1)
[2024-04-02 11:02] LABS: Activated Partial Thrombo Time 38.9 seconds (22.8-30.6); INR 1.17 (0.9-1.1); Prothrombin Time 12.9 seconds (10.1-12.5)
--- NOTE | 2024-04-02 11:30 | PC.NURSE ---
FAMILY AT BEDSIDE, NO NEEDS AT THIS TIME
--- NOTE | 2024-04-02 12:52 | PC.NURSE ---
ROUNDED ON PT, FAMILY AT BEDSIDE, UPDATED ON POC. NO NEEDS AT THIS TIME
[2024-04-02 13:16] LABS: Appearance,Urine CLOUDY (Clear); Bilirubin,Urine Negative (Negative); Blood, Urine 2+ (Negative); Color,Urine YELLOW (Yellow); Glucose,Urine (UA) Negative (Negative); Ketones,Urine Negative (Negative); Leukocyte Esterase,Urine 2+ (Negative); Nitrate,Urine POSITIVE (Negative); Protein,Urine TRACE (Negative); Specific Gravity, Urine 1.025 (1.005-1.030); Urobilinogen,Urine 0.2 EU/dl (0.2)
[2024-04-02] MEDS: CEFEPIME HCL 2 GM in 0.9 % SODIUM CHLORIDE 100 ML IV (13:31)
--- NOTE | 2024-04-02 13:49 | PC.NURSE ---
[employer] ADVISOR NOTIFIED OF ADMISSION
--- NOTE | 2024-04-02 13:53 | PC.NURSE ---
DR KEENE AT BEDSIDE TO UPDATE PT
[2024-04-02] MEDS: LACTATED RINGERS 1000ML 2,120 ML 1060 ML IV (14:07)
--- NOTE | 2024-04-02 14:16 | PC.NURSE ---
ATTEMPTED TO CALL REPORT, NURSE IN PT ROOM CURRENTLY
--- NOTE | 2024-04-02 14:21 | PC.NURSE ---
REPORT CALLED TO ANGELLA GALEANA AT THIS TIME BED BEING CLEANED UPSTAIRS. STAFF WILL BE TO GET PT SOON ROOM IS READY
--- NOTE | 2024-04-02 15:08 | PC.NURSE ---
arrived by stretcher from ED
[2024-04-02] MEDS: LACTATED RINGERS 1000ML 1,000 ML 75 ML IV (16:18)
[2024-04-02 18:04] LABS: HIV (1&2) Antibody Rapid NONREACTIVE (NONREACTIVE)
--- NOTE | 2024-04-02 18:25 | PC.NURSE ---
Patient arrived from ER via stretcher. Alert and oriented. VSS. On 2L O2 via [place] which is patient's home dose. Complaint of chronic back pain. Hospitalist aware. Chronic latham catheter exchanged for clean urine specimen. Lab informed that second specimen should be tested as first was drawn in ER from existing catheter. LR at 75. Plan is to start IV antibiotics and hydration.
--- NOTE | 2024-04-02 18:29 | EXP.HP ---
History of Present Illness *Admission Date: 04/02/24 *Reason for visit:: Generalized weakness, UTI *History of present illness: Adeel Nichole is a 69-year-old male with a medical history significant for chronic cauda equina syndrome with neurogenic bladder and chronic indwelling Rodriguez, COPD, hypertension, hyperlipidemia, type 2 diabetes who presents with worsening generalized weakness, dizziness over the past few days. He states he was attempting to transfer into his wheelchair today when he experienced presyncope. He has felt more lightheaded over the past few days. He also notes that he has been urinating less, and feeling generally weak over the past few days. He denies chest pain at this time. He continues to have bowel movements. Blood pressure is soft 95/63 on arrival. Workup in the ED significant for WBC 11.8, creatinine 1.3 (baseline around 1.0), and UA strongly suggesting UTI. CXR did not show acute findings. Patient given cefepime and 2L LR bolus. Case discussed with ED provider and decision was made to admit patient for generalized weakness, dizziness in the setting of UTI. [facility] Disclaimer: The information contained in this section may have been updated after the patient was seen, as this information can be updated by other users. Medical History Tachycardia Acute exacerbation of chronic obstructive pulmonary disease Acute urinary retention Chronic pain This patient has multiple reasons to have chronic pain including, diabetic peripheral polyneuropathy, cauda equina syndrome, and other issues. We will continue his oxycodone but I would prefer to do this without the acetaminophen. I will give him up to 4 tablets/day of oxycodone 10 mg. Goal is to keep him comfortable as best as possible. He is on diazepam as well and this is greatly concerning but we will discuss it at his next visit. At risk for osteoporosis Diabetes mellitus type 2 in obese As I mentioned in the past having rigid A1c goals does not seem appropriate in this patient. However according to the patient and his daughter his last A1c which was done outside of our system was 6.5 which is excellent. Will continue with the current therapies. At risk for polypharmacy Unfortunately patient is unable to get palliative care. I will try to limit the burden of visits to the clinic. Will see him back in 3 months. At that time they can certainly call in and if they do not come out I would just say will refill another 3 months. Pneumonia Healthcare-associated pneumonia Chronic respiratory failure with hypoxia Chronic indwelling Rodriguez catheter I reviewed the UA that was obtained recently. This is typical for an indwelling catheter and I do not think there is anything further to do at this point. Peritracheal mass Acute urinary retention Cauda equina syndrome Probably causing some of his pain. Continue his pain medications which appear to be controlling his pain fairly well. PDMP was checked. Paralysis, progressive Encounter for immunization Atypical angina Chest pain Abnormal EKG Edema Leg pain, bilateral SOB (shortness of breath) Chronic systolic heart failure CKD (chronic kidney disease) stage 2, GFR 60-89 ml/min Diabetes mellitus COPD (chronic obstructive pulmonary disease) HLD (hyperlipidemia) Patient is on atorvastatin. Last lipid panel does reveal a total triglyceride of 108 total cholesterol 139 LDL of 78 VLDL of 22 HDL of 39. This really is good panel and I would continue atorvastatin 40. HTN (hypertension) Surgical History H/O repair of rotator cuff Family History Other Diabetes Hypertension Stroke Social History (Updated 04/02/24 @ 15:40 by Lucy Rodrigues RN) Smoking Status: Former smoker tobacco type: cigarettes alcohol intake: never substance use type: denies use current occupational status: unemployed Travel in the last 8 weeks: None household members: spouse housing: house caffeine: Yes Other Medical History Have you received the Flu Vaccine for this season: Yes Have you received the Pneumonia Vaccine: Yes Meds Home Medications and Allergies Home Medications ?Medication ?Instructions ?Recorded ?Confirmed ?Type aspirin 81 mg chewable tablet 81 mg PO DAILY 03/29/23 04/02/24 History rivaroxaban 15 mg tablet 15 mg PO QPMWITHMEAL Blood 04/17/23 04/02/24 Rx thinner/AFIB 90 days #90 tabs semaglutide 2 mg/dose (8 mg/3 mL) 2 mg SQ WEEKLY 06/14/23 04/02/24 History subcutaneous pen injector (Ozempic) levothyroxine 175 mcg tablet 175 mcg PO DAILYDM 10/20/23 04/02/24 History methenamine hippurate 1 gram tablet 1 g PO DAILY 12/11/23 04/02/24 History spironolactone 25 mg tablet 25 mg PO BID 12/11/23 04/02/24 History topiramate 25 mg tablet (Topamax) 25 mg PO BID 12/11/23 04/02/24 History topiramate 50 mg tablet 50 mg PO BID 12/11/23 04/02/24 History metoprolol succinate 25 mg 25 mg PO BID #180 tabs 01/03/24 04/02/24 Rx tablet,extended release 24 hr insulin glargine 100 unit/mL (3 60 unit SQ DAILY 02/11/24 04/02/24 History mL) subcutaneous pen (Basaglar KwikPen U-100 Insulin) blood-glucose meter #1 ea 03/19/24 04/02/24 Rx aripiprazole 5 mg tablet 5 mg PO DAILY 04/02/24 04/02/24 History atorvastatin 40 mg tablet 40 mg PO HS 04/02/24 04/02/24 History diazepam 5 mg tablet 5 mg PO TID 04/02/24 04/02/24 History furosemide 40 mg tablet 40 mg PO BID 04/02/24 04/02/24 History oxycodone 10 mg tablet 10 mg PO Q6HP PRN Moderate Pain 04/02/24 04/02/24 History (Scale Score 5-6) ranolazine 500 mg tablet,extended 500 mg PO BID 04/02/24 04/02/24 History release,12 hr tizanidine 6 mg capsule 6 mg PO TIDP PRN muscle spasticity 04/02/24 04/02/24 History New Prescriptions to Start Prescriptions: Allergies Allergy/AdvReac Type Severity Reaction Status Date / Time gabapentin [From Neurontin] Allergy Intermediate Rash Verified 02/11/24 08:25 Exam Data for Last 24 hours Vital signs and Labs for Last 24 Hours: Temp Pulse Resp BP Pulse Ox O2 Del Method O2 Flow Rate 97.9 F 80 18 102/57 L 98 Room Air 2 04/02/24 15:00 04/02/24 15:00 04/02/24 15:00 04/02/24 15:00 04/02/24 14:00 04/02/24 17:00 04/02/24 15:00 Laboratory Results - last 24 hr 04/02/24 10:10: WBC 11.8 H, RBC 5.24, Hgb 11.7 L, Hct 36.9 L, MCV 70.3 L, MCH 22.3 L, MCHC 31.7 L, RDW 19.6 H, Plt Count 298, MPV 7.2 L, Neut % (Auto) 68.6, Lymph % (Auto) 23.6, [place] % (Auto) 5.3, Eos % (Auto) 2.0, Baso % (Auto) 0.4, Neut # (Auto) 8.1 H, Lymph # (Auto) 2.8, [place] # (Auto) 0.6, Eos # (Auto) 0.2, Baso # (Auto) 0.1, PT 12.9 H, INR 1.17 H, APTT 38.9 H, Sodium 135 L, Potassium 3.9, Chloride 98, Carbon Dioxide 28, Anion Gap 12.9, BUN 15, Creatinine 1.30 H, Estimated GFR 55 L, Est GFR ( Amer) 67, Glucose 221 H, Calcium 9.6, Total Bilirubin 0.5, AST 28, ALT 19, Alkaline Phosphatase 84, Troponin I < 0.01, NT-Pro-B Natriuret Pep 65.6, Total Protein 7.4, Albumin 4.3, Globulin 3.1, Albumin/Globulin Ratio 1.4, Lipase 149 04/02/24 10:13: HIV 1&2 Antibody Rapid Nonreactive 04/02/24 10:30: Lactate 1.8 04/02/24 13:06: Urine Color Yellow, Urine Appearance Cloudy, Urine pH 6.0, Ur Specific [place] 1.025, Urine Protein Trace, Urine Glucose (UA) Negative, Urine Ketones Negative, Urine Blood 2+ A, Urine Nitrate Positive, Urine Bilirubin Negative, Urine Urobilinogen 0.2, Ur Leukocyte Esterase 2+ A, Urine RBC TNP, Urine WBC TNP, Ur Squamous Epith Cells TNP, Ur Transition Epith Cell TNP, Ur Renal Epithelial Cell TNP, Calcium Carbonate Cryst TNP, Calcium Phosphate Cryst TNP, Calcium Oxalate Crystal TNP, Cystine Crystals TNP, Uric Acid Crystals TNP, Triple Phos Crystals TNP, Tyrosine Crystals TNP, Other Crystals TNP, Amorphous Sediment TNP, Other Sediment TNP, Urine Bacteria TNP, Fatty Casts TNP, Hyaline Casts TNP, Fine Granular Casts TNP, Coarse Granular Casts TNP, Waxy Casts TNP, RBC Casts TNP, WBC Casts TNP, Other Casts TNP, Urine Mucus TNP, Urine Trichomonas TNP, Urine Yeast TNP, Urine Sperm TNP I & O for Last 24 hours: Intake & Output 03/30/24 03/31/24 04/01/24 04/02/24 23:59 23:59 23:59 23:59 Intake Total 320 / 320 Output Total 800 / 800 Balance -480 / -480 Weight 88.451 kg Constitutional Constitutional: no acute distress *Routine HEENT Exam Head: Present normocephalic Eye: Present EOMI and PERRL ENT: Present mucous membranes moist *Routine Neck Exam Neck: Present supple; Absent lymphadenopathy *Routine Respiratory Exam Respiratory: Present CTA bilaterally *Routine Cardiovascular Exam Cardiovascular: Present RRR *Routine Abdominal Exam Abdominal: Present soft and normoactive bowel sounds; Absent tenderness *Routine Rectal Exam Rectal:: deferred *Routine Genitalia Exam Genitalia:: deferred *Routine Extremities Exam Extremities: Absent cyanosis, clubbing or edema Comments: Bilateral lower extremity strength 3/5, though chronic from cauda equina. *Routine Skin Exam Skin: Present warm; Absent rash *Routine Neurological Exam Neurological: Present alert and oriented X3 Assessment and Plan *Assessment and plan (1) STEPHANI (acute kidney injury): Status: Acute Category: Medical Code(s): N17.9 - Acute kidney failure, unspecified (2) Hypotension: Status: Acute Category: Medical Code(s): I95.9 - Hypotension, unspecified (3) Generalized weakness: Status: Acute Category: Medical Code(s): R53.1 - Weakness (4) UTI (urinary tract infection): Status: Acute Category: Medical Code(s): N39.0 - Urinary tract infection, site not specified (5) Lightheadedness: Status: Acute Category: Medical Code(s): R42 - Dizziness and giddiness Plan Adeel Nichole is a 69-year-old male with a medical history significant for chronic cauda equina syndrome with neurogenic bladder and chronic indwelling Rodriguez, COPD, hypertension, hyperlipidemia, type 2 diabetes who presents with worsening generalized weakness, dizziness over the past few days. He states he was attempting to transfer into his wheelchair today when he experienced presyncope. He has felt more lightheaded over the past few days. He also notes that he has been urinating less, and feeling generally weak over the past few days. He denies chest pain at this time. He continues to have bowel movements. Blood pressure is soft 95/63 on arrival. Workup in the ED significant for WBC 11.8, creatinine 1.3 (baseline around 1.0), and UA strongly suggesting UTI. CXR did not show acute findings. Patient given cefepime and 2 L LR bolus. Case discussed with ED provider and decision was made to admit patient for generalized weakness, dizziness, STEPHANI in the setting of UTI. #Generalized weakness #Lightheadedness #UTI ? Endorses decreased urinary output, generalized weakness over the past few days. ? Also endorses lightheadedness especially with movement. ? Poor p.o. intake over the past few days as well. ? These constellation of findings alluded to dehydration and weakness from urinary tract infection in the setting of chronic indwelling Rodriguez for neurogenic bladder. ? WBC 11.8. ? Previous urine culture sensitive to ceftriaxone. ? Rodriguez catheter replaced. ? IV ceftriaxone day 07/11 starting tomorrow. IV cefepime given in the ED. ? IV LR at 75 mL/h. Encourage p.o. intake. ? Follow-up blood, urine cultures, WBC. #STEPHANI ? Initial creatinine 1.3, baseline around 1.0 ? Continue IV fluid resuscitation as above and encourage p.o. intake. #Chronic cauda equina syndrome #Neurogenic bladder ? Follows with neurosurgery, last appointment 2 months ago. ? Patient has chronic lower extremity weakness, back pain. ? Continues to have bowel movements. ? Not suggestive of acute on chronic cauda equina syndrome at this time. Stable chronic conditions: Mood disorder/depression: Continue citalopram 20 mg daily and Abilify 5 mg daily, Valium 5 mg 3 times a day, and trazodone 100 mg nightly to help with sleep and mood. Hold Topamax in the setting of lightheadedness. COPD: DuoNebs as needed Hypertension/CAD/CHF: Hold home blood pressure medications in setting of soft blood pressures. Continue aspirin. A-fib: Xarelto 15 mg daily. Continue metoprolol after BP improves. Hypothyroid: Continue levothyroxine 175 mcg daily Diabetes: Lantus 10 units daily, take 60 units at home. Uptitrate as needed. LDSSI, ACHS glucose checks. Full code DVT prophylaxis: Home Xarelto Cardiac diet
[2024-04-02] MEDS: ATORVASTATIN 40MG TABLET 40 MG PO (21:06)
[2024-04-02] MEDS: diazePAM 5MG TABLET 5 MG PO (21:06)
[2024-04-02] MEDS: RANOLAZINE 500MG ER TABLET 500 MG PO (21:06)
[2024-04-02 21:20] LABS: POC Glucose,Bedside 126 (70-110)
[2024-04-02] MEDS: OXYCODONE 5MG IMMEDIATE RELEASE TABLET 10 MG PO (21:40)
[2024-04-03] VITALS: BP 110/63; PULSE 83; RESP 16; TEMP 36.8; O2SAT 94
[2024-04-03 04:00] VITALS: BP 102/55; PULSE 89; RESP 17; TEMP 36.7; O2SAT 92; BMI 29.9
[2024-04-03] MEDS: LACTATED RINGERS 1000ML 1,000 ML 75 ML IV ×2 (04:51→17:32)
[2024-04-03 05:25] LABS: HCV Ab Non Reactive (Non Reactive)
[2024-04-03 06:06] LABS: POC Glucose,Bedside 103 (70-110)
[2024-04-03 06:33] LABS: Basophils % 0.3 % (0.1-2.0); Eosinophils # 0.2 K/mm3 (0.0-0.4); Eosinophils % 2.4 % (0.1-12.0); Hematocrit 32.7 % (42.0-52.0); Lymphocytes # 2.2 K/mm3 (0.7-4.5); Lymphocytes % 23.2 % (10-50); Mean Corpuscular HGB Conc 31.5 g/dL (31.8-35.4); Mean Corpuscular Hemoglobin 22.5 pg (27.0-31.2); Mean Corpuscular Volume 71.5 fl (80-94); Monocytes # 0.7 K/mm3 (0.1-1.0); Monocytes % 7.2 % (1.7-9.3); Neutrophils # 6.4 K/mm3 (1.8-7.8); Neutrophils % 66.9 % (37.0-80.0); Platelet Count 256 K/mm3 (142-424); Red Blood Count 4.57 M/mm3 (4.60-6.20); Red Cell Distribution Width 19.7 % (11.5-17.5); White Blood Count 9.6 K/mm3 (4.8-10.8)
[2024-04-03 06:35] LABS: Hemoglobin 10.3 g/dL (14.1-18.0)
[2024-04-03 06:40] LABS: Albumin Level 3.7 g/dl (3.5-5.0); Chloride 99 mmol/L (98-107); Potassium 3.5 mmoL/L (3.5-5.1); Sodium 136 mmol/L (136-145)
[2024-04-03 06:42] LABS: Blood Urea Nitrogen 15 mg/dl (9-20); Creatinine Clearance Estimated 78 mL/min (50-200); Estimated Glomerular Filt Rate 60 ml/min (>60); GFR (African American) 73 ML/MIN (>60)
[2024-04-03 06:43] LABS: Alanine Aminotransferase 15 U/L (12-78); Albumin/Globulin Ratio 1.4 (1.1-1.8); Alkaline Phosphatase 85 U/L (38-126); Anion Gap 10.5 mEq/L (5-15); Aspartate Amino Transferase 27 U/L (17-59); Bilirubin,Total 0.5 mg/dl (0.2-1.3); Calcium 8.8 mg/dl (8.4-10.2); Carbon Dioxide 30 mmol/L (22.0-30.0); Globulin 2.6 g/dL (1.3-3.2); Glucose 117 mg/dl (74-100); Magnesium 1.8 mg/dl (1.6-2.3); Total Protein,Serum 6.3 g/dl (6.3-8.2)
[2024-04-03 08:00] VITALS: BP 128/66; PULSE 92; RESP 17; TEMP 36.6; O2SAT 95
[2024-04-03] MEDS: LEVOTHYROXINE 175MCG (0.175MG) TAB 175 MCG PO (08:09)
[2024-04-03] MEDS: ASPIRIN 81MG CHEWABLE TABLET 81 MG PO (08:10)
[2024-04-03] MEDS: ARIPiprazole 10MG TABLET 5 MG PO (08:10)
[2024-04-03] MEDS: RANOLAZINE 500MG ER TABLET 500 MG PO ×2 (08:10→20:32)
[2024-04-03] MEDS: diazePAM 5MG TABLET 5 MG PO ×3 (08:14→20:31)
[2024-04-03] MEDS: CEFTRIAXONE 1 GM 1 GM in 0.9 % SODIUM CHLORIDE 50 ML IV (08:18)
--- NOTE | 2024-04-03 10:32 | HMH.PTEV ---
Physical Therapy Evaluation Rehab PT IP Evaluation Start: 04/02/24 13:44 Freq: ONCE Status: Active Protocol: Document 04/03/24 10:01 RAMÍREZ (Rec: 04/03/24 10:32 RAMÍREZ [id number]) Subjective/History History History Pt is a 69-year-old male with a medical history significant for chronic cauda equina syndrome with neurogenic bladder and chronic indwelling [place], COPD, hypertension, hyperlipidemia, type 2 diabetes who presents with worsening generalized weakness and dizziness. Pt reports he lives at home w/ in a single story home. Pt states he has been in the bed for the past 6 months , has not walked in the timeframe and uses a w/c at home. Subjective Subjective Pt presents supine and awake in bed this morning w/ O2 delivery via nasal cannula, latham catheter, and IV in arm. Pt is oriented x3 and denies any pain but does report increased dizziness when going from [id number]. New diagnosis of cancer in past 12 No months? Rehab PT IP Eval Objective Appearance Patient Behavior Appropriate,Cooperative Patient Orientation Person,Place,Birthday Difficulty following instructions none Speech Pattern Clear,Appropriate,Coherent Ambulation Patient Able to Ambulate No Balance Ability to Arise Unable Sitting Balance Leans or slides in chair Standing Balance Unsteady Dynamic Sitting Balance Ability Poor Dynamic Standing Balance Ability Zero Transfers Bed Transfer Ability Moderate x 2 (50% assist) Sit to Stand Bed Transfer Ability Maximum x 2 (75% assist) Rehab PT IP prob,goals,plan Problems Date of Evaluation: 04/03/24 PT IP Problems Bed Mobility,Transfers,Gait, Balance,Self care,Safety Rehab Potential Rehab Potential Good Plan PT Intervention Plan Bed Mobility,Transfers,Gait, Balance,Safety PT Plan Frequency BID Duration LOS Discharge Goals Bed Transfer Ability Moderate x 1 (50% assist) Sit to Stand Chair Transfer Ability Maximum x 1 (75% assist) Discharge Plan PT Discharge Plan Currently, pt would be most appropriate for rehab placement once medically stable for d/c. Pt was able to initiate [id number] transfers by moving his legs toward EOB; however, pt required mod assist x2 to finish transfer. Pt demonstrated poor static sitting balance and required continuous contact guard assist in sitting. Pt is max assist x2 for [id number] tasks and was unable to reach full upright standing position . Eval Complexity Eval Charge Codes 75994 - High Complexity PHYSICIAN CERTIFICATION: I certify the specified therapy services for Adeel Ray Dionisio JR are required, authorized, and reviewed every 30 days.
[2024-04-03] MEDS: INSULIN GLARGINE 100 UNITS/ML 3ML FLEXPEN 10 UNIT SUBCUT (11:04)
[2024-04-03 11:17] LABS: POC Glucose,Bedside 150 (70-110)
[2024-04-03 12:00] VITALS: BP 126/64; PULSE 90; RESP 16; TEMP 36.6; O2SAT 96
[2024-04-03] MEDS: TOPIRAMATE 25MG TABLET 75 MG PO ×2 (13:09→20:32)
[2024-04-03 14:41] LABS: Adenovirus,PCR Not Detected (NotDetected); Bordetella Pertussis Not Detected (NotDetected); Chlamydophila Pneumoniae, PCR Not Detected (NotDetected); Coronavirus 19, PCR Not Detected (NotDetected); Coronavirus 229E Not Detected (NotDetected); Coronavirus NL63 Not Detected (NotDetected); Coronavirus OC43 Not Detected (NotDetected); Coronovirus HKU1,PCR Not Detected (NotDetected); Human Metapneumovirus Not Detected (NotDetected); Influenza A, PCR Not Detected (NotDetected); Influenza AH1, 2009 Not Detected (NotDetected); Influenza AH1, PCR Not Detected (NotDetected); Influenza AH3,PCR Not Detected (NotDetected); Influenza B, PCR Not Detected (NotDetected); Mycoplasma Pneumoniae, PCR Not Detected (NotDetected); Parainfluenza 1, PCR Not Detected (NotDetected); Parainfluenza 2, PCR Not Detected (NotDetected); Parainfluenza 3, PCR Not Detected (NotDetected); Parainfluenza 4, PCR Not Detected (NotDetected); Respiratory Syncytial Virus Not Detected (NotDetected); Rhinovirus/Enterovirus Not Detected (NotDetected)
--- NOTE | 2024-04-03 15:47 | SW/DCPLANNER ---
Addendum entered by Alley Velasquez 04/04/24 13:48: [facility]/ [facility] has accepted this patient for services. Addendum entered by Alley Velasquez 04/04/24 11:59: Patient prefers to return home w/ home health services. Patient stated that he has used [facility] and prefers to use this agency at time of discharge. I set up home health services this afternoon. Per MD patient is expected to discharge home today. Original Note: I spoke w/ patient's daughter this afternoon regarding plans once medically stable for discharge. PT/OT evaluated patient and recommended SNF level of care. Per patient and daughter the plan for this patient is to return home w/ family assistance and home health services. Patient/family are not interested in placement at this time. I will continue to follow up w/ patient/family until medically stable for discharge. Discharge date is unknown at this time.
[2024-04-03 16:00] VITALS: BP 143/72; PULSE 88; RESP 17; TEMP 36.7; O2SAT 95
[2024-04-03] MEDS: RIVAROXABAN 15MG TABLET 15 MG PO (17:47)
--- NOTE | 2024-04-03 18:40 | PC.NURSE ---
18:40 Pt. is alert and orientated x 4. Pt. with latham cather in place, draining well. Pt. vital signs stable. getting IV antibiotics for UTI. Possible discharge home tomorrow. Family was at bedside today. Pt. has chonic pain but feels a little better.
[2024-04-03 20:00] VITALS: BP 122/69; PULSE 81; RESP 18; TEMP 36.7; O2SAT 96
[2024-04-03] MEDS: OXYCODONE 5MG IMMEDIATE RELEASE TABLET 10 MG PO (20:32)
[2024-04-03] MEDS: ATORVASTATIN 40MG TABLET 40 MG PO (20:32)
[2024-04-03 20:44] LABS: POC Glucose,Bedside 151 (70-110)
[2024-04-03 21:35] LABS: POC Glucose,Bedside 125 (70-110)
--- NOTE | 2024-04-03 22:22 | P.PN_ITS ---
Subjective *Date: 04/03/24 *Time: 22:22 Exam Data for Last 24 hours Vital signs and Labs for Last 24 Hours: Temp Pulse Resp BP Pulse Ox O2 Del Method O2 Flow Rate 98.1 F 88 17 143/72 H 95 Room Air 2 04/03/24 16:00 04/03/24 16:00 04/03/24 16:00 04/03/24 16:00 04/03/24 16:00 04/03/24 18:44 04/03/24 06:37 Laboratory Results - last 24 hr 04/02/24 10:13: Hepatitis C Antibody Non reactive 04/02/24 13:06: Urine Color Yellow, Urine Appearance Cloudy, Urine pH 6.0, Ur Specific [place] 1.025, Urine Protein Trace, Urine Glucose (UA) Negative, Urine Ketones Negative, Urine Blood 2+ A, Urine Nitrate Positive, Urine Bilirubin Negative, Urine Urobilinogen 0.2, Ur Leukocyte Esterase 2+ A, Urine RBC TNP, Urine WBC TNP, Ur Squamous Epith Cells TNP, Ur Transition Epith Cell TNP, Ur Renal Epithelial Cell TNP, Calcium Carbonate Cryst TNP, Calcium Phosphate Cryst TNP, Calcium Oxalate Crystal TNP, Cystine Crystals TNP, Uric Acid Crystals TNP, Triple Phos Crystals TNP, Tyrosine Crystals TNP, Other Crystals TNP, Amorphous Sediment TNP, Other Sediment TNP, Urine Bacteria TNP, Fatty Casts TNP, Hyaline Casts TNP, Fine Granular Casts TNP, Coarse Granular Casts TNP, Waxy Casts TNP, RBC Casts TNP, WBC Casts TNP, Other Casts TNP, Urine Mucus TNP, Urine Trichomonas TNP, Urine Yeast TNP, Urine Sperm TNP 04/03/24 05:58: POC Glucose 103 04/03/24 06:14: WBC 9.6, RBC 4.57 L, Hgb 10.3 L D, Hct 32.7 L, MCV 71.5 L, MCH 22.5 L, MCHC 31.5 L, RDW 19.7 H, Plt Count 256, MPV 8.0, Neut % (Auto) 66.9, Lym ph % (Auto) 23.2, [place] % (Auto) 7.2, Eos % (Auto) 2.4, Baso % (Auto) 0.3, Neut # (Auto) 6.4, Lymph # (Auto) 2.2, [place] # (Auto) 0.7, Eos # (Auto) 0.2, Baso # (Auto) 0.0, Sodium 136, Potassium 3.5, Chloride 99, Carbon Dioxide 30, Anion Gap 10.5, BUN 15, Creatinine 1.20, Estimated Creat Clear 78, Estimated GFR 60, Est GFR ( Amer) 73, Glucose 117 H D, Calcium 8.8, Magnesium 1.8, Total Bilirubin 0.5, AST 27, ALT 15, Alkaline Phosphatase 85, Total Protein 6.3, Albumin 3.7 D, Globulin 2.6, Albumin/Globulin Ratio 1.4 04/03/24 11:07: POC Glucose 150 H 04/03/24 14:35: Chlamy pneumoniae PCR Not detected, Adenovirus (PCR) Not detected, B. pertussis DNA (PCR) Not detected, Coronavirus OC43 (PCR) Not detected, Coronavirus HKU1 (PCR) Not detected, Coronavirus 229E (PCR) Not detected, SARS-CoV-2 (PCR) Not detected, Coronavirus NL63 (PCR) Not detected, Human Metapneumovir PCR Not detected, Influenza A (H1) PCR Not detected, Influ A (H1N1/09) PCR Not detected, Influenza A (H3) PCR Not detected, Influenza Type A (PCR) Not detected, Influenza Type B (PCR) Not detected, M. pneumoniae (PCR) Not detected, Parainfluenza 1 (PCR) Not detected, Parainfluenza 2 (PCR) Not detected, Parainfluenza 3 (PCR) Not detected, Parainfluenza 4 (PCR) Not detected, RSV (PCR) Not detected, Entero/Rhino (PCR) Not detected 04/03/24 16:37: POC Glucose 125 H 04/03/24 20:29: POC Glucose 151 H I & O for Last 24 hours: Intake & Output 03/31/24 04/01/24 04/02/24 04/03/24 23:59 23:59 23:59 23:59 Intake Total 1138 / 1138 3354 / 3354 Output Total 2200 / 2200 3475 / 3475 Balance -1062 / -1062 -121 / -121 Weight 88.451 kg 91.762 kg Microbiology Reports for the Last 24 Hours: Microbiology 04/02/24 11:03 Blood Blood Culture - Preliminary NO GROWTH AFTER 24 HOURS 04/02/24 10:13 Blood Blood Culture - Preliminary NO GROWTH AFTER 24 HOURS 04/02/24 13:06 Urine,Clean Catch Urine Culture - Preliminary Gram Negative Rods Constitutional Constitutional: no acute distress *Routine HEENT Exam Head: Present normocephalic Eye: Present EOMI and PERRL ENT: Present mucous membranes moist *Routine Neck Exam Neck: Present supple; Absent lymphadenopathy *Routine Respiratory Exam Respiratory: Present CTA bilaterally *Routine Cardiovascular Exam Cardiovascular: Present RRR *Routine Abdominal Exam Abdominal: Present soft and normoactive bowel sounds; Absent tenderness *Routine Extremities Exam Extremities: Absent cyanosis, clubbing or edema Comments: Bilat LE strength 3/5. *Routine Skin Exam Skin: Present warm; Absent rash *Routine Neurological Exam Neurological: Present alert and oriented X3 Assessment and Plan *Assessment and plan (1) STEPHANI (acute kidney injury): Status: Acute Category: Medical Code(s): N17.9 - Acute kidney failure, unspecified (2) Hypotension: Status: Acute Category: Medical Code(s): I95.9 - Hypotension, unspecified (3) Generalized weakness: Status: Acute Category: Medical Code(s): R53.1 - Weakness (4) UTI (urinary tract infection): Status: Acute Category: Medical Code(s): N39.0 - Urinary tract infection, site not specified (5) Lightheadedness: Status: Acute Category: Medical Code(s): R42 - Dizziness and giddiness Plan Adeel Nichole is a 69-year-old male with a medical history significant for chronic cauda equina syndrome with neurogenic bladder and chronic indwelling Rodriguez, COPD, hypertension, hyperlipidemia, type 2 diabetes who presents with worsening generalized weakness, dizziness over the past few days. He states he was attempting to transfer into his wheelchair today when he experienced presyncope. He has felt more lightheaded over the past few days. He also notes that he has been urinating less, and feeling generally weak over the past few days. He denies chest pain at this time. He continues to have bowel movements. Blood pressure is soft 95/63 on arrival. Workup in the ED significant for WBC 11.8, creatinine 1.3 (baseline around 1.0), and UA strongly suggesting UTI. CXR did not show acute findings. Patient given cefepime and 2 L LR bolus. Case discussed with ED provider and decision was made to admit patient for generaliz ed weakness, dizziness, STEPHAIN in the setting of UTI. #Generalized weakness #Lightheadedness #UTI ? Endorses decreased urinary output, generalized weakness over the past few day s. ? Also endorses lightheadedness especially with movement. ? Poor p.o. intake over the past few days as well prior to admission. - Patient at baseline is bed bound due to chronic cauda equina syndrome. ? These constellation of findings alluded to dehydration and weakness from urinary tract infection in the setting of chronic indwelling Rodriguez for neurogenic bladder. ? WBC 11.8, improved to 9.6 today. ? Previous urine culture sensitive to ceftriaxone. ? Rodriguez catheter replaced. ? IV ceftriaxone day 08/08 . IV cefepime given in the ED. - Pattient states he feels a little better than yesterday, but continues to have intermittent dizzziness. Respiratory panel negative. ? IV LR at 75 mL/h. Encourage p.o. intake. ? UC shows gram negative rods, pending speciation and sensitivies. - BC NGTD 24 hours. - Holding Topamax, decreased diazepam to 2.5mg in the setting of dizziness. - Follow-up TSH, T4, B12, folate to eval for dizziness. #STEPHANI ? Initial creatinine 1.3, baseline around 1.0 Improved to 1.2 today. ? Continue IV fluid resuscitation as above and encourage p.o. intake. #Chronic cauda equina syndrome #Neurogenic bladder ? Follows with neurosurgery, last appointment 2 months ago. ? Patient has chronic lower extremity weakness, back pain. ? Continues to have bowel movements. ? Not suggestive of acute on chronic cauda equina syndrome at this time. Stable chronic conditions: Mood disorder/depression: Continue citalopram 20 mg daily and Abilify 5 mg daily, Valium 2.5 mg 3 times a day, and trazodone 100 mg nightly to help with sleep and mood. Hold Topamax in the setting of lightheadedness. COPD: DuoNebs as needed Hypertension/CAD/CHF: Hold home blood pressure medications in setting of soft blood pressures. Continue aspirin. A-fib: Xarelto 15 mg daily. Continue metoprolol after BP improves. Hypothyroid: Continue levothyroxine 175 mcg daily Diabetes: Lantus 10 units daily, take 60 units at home. Uptitrate as needed. LDSSI, ACHS glucose checks. Full code DVT prophylaxis: Home Xarelto Cardiac diet
[2024-04-04] VITALS: BP 132/71; PULSE 85; RESP 16; TEMP 36.6; O2SAT 96
[2024-04-04 04:00] VITALS: BP 139/84; PULSE 91; RESP 18; TEMP 36.7; O2SAT 94; BMI 30.3
[2024-04-04] MEDS: LACTATED RINGERS 1000ML 1,000 ML 75 ML IV (05:31)
[2024-04-04 05:37] LABS: POC Glucose,Bedside 111 (70-110)
[2024-04-04] MEDS: LEVOTHYROXINE 175MCG (0.175MG) TAB 175 MCG PO (06:51)
[2024-04-04 07:39] LABS: Basophils % 0.4 % (0.1-2.0); Eosinophils # 0.1 K/mm3 (0.0-0.4); Eosinophils % 1.6 % (0.1-12.0); Hematocrit 34.8 % (42.0-52.0); Lymphocytes # 1.4 K/mm3 (0.7-4.5); Lymphocytes % 17.9 % (10-50); Mean Corpuscular HGB Conc 31.4 g/dL (31.8-35.4); Mean Corpuscular Hemoglobin 22.6 pg (27.0-31.2); Mean Corpuscular Volume 71.8 fl (80-94); Mean Platelet Volume 8.2 fl (7.4-10.4); Monocytes # 0.5 K/mm3 (0.1-1.0); Monocytes % 6.3 % (1.7-9.3); Neutrophils # 5.9 K/mm3 (1.8-7.8); Neutrophils % 73.8 % (37.0-80.0); Platelet Count 245 K/mm3 (142-424); Red Blood Count 4.85 M/mm3 (4.60-6.20); Red Cell Distribution Width 20.1 % (11.5-17.5); White Blood Count 7.9 K/mm3 (4.8-10.8)
[2024-04-04 07:57] LABS: Alanine Aminotransferase 16 U/L (12-78); Albumin Level 3.7 g/dl (3.5-5.0); Albumin/Globulin Ratio 1.3 (1.1-1.8); Alkaline Phosphatase 85 U/L (38-126); Anion Gap 12.2 mEq/L (5-15); Aspartate Amino Transferase 35 U/L (17-59); Bilirubin,Total 0.5 mg/dl (0.2-1.3); Blood Urea Nitrogen 11 mg/dl (9-20); Calcium 9.3 mg/dl (8.4-10.2); Carbon Dioxide 29 mmol/L (22.0-30.0); Chloride 102 mmol/L (98-107); Creatinine Clearance Estimated 94 mL/min (50-200); Estimated Glomerular Filt Rate 75 ml/min (>60); GFR (African American) 90 ML/MIN (>60); Globulin 2.9 g/dL (1.3-3.2); Glucose 116 mg/dl (74-100); Magnesium 1.7 mg/dl (1.6-2.3); Potassium 3.2 mmoL/L (3.5-5.1); Sodium 140 mmol/L (136-145); Total Protein,Serum 6.6 g/dl (6.3-8.2)
[2024-04-04 08:00] VITALS: BP 123/73; PULSE 96; RESP 20; TEMP 36.8; O2SAT 94
[2024-04-04 08:18] LABS: Free T4 (Free Thyroxine) 1.44 ng/dl (0.78-2.19)
[2024-04-04 08:22] LABS: Thyroid Stimulating Hormone 1.88 uIU/mL (0.465-4.68)
[2024-04-04 08:57] LABS: Vitamin B12 895 pg/mL (239-931)
[2024-04-04] MEDS: ASPIRIN 81MG CHEWABLE TABLET 81 MG PO (09:04)
[2024-04-04] MEDS: RANOLAZINE 500MG ER TABLET 500 MG PO (09:04)
[2024-04-04] MEDS: ARIPiprazole 10MG TABLET 5 MG PO (09:05)
[2024-04-04] MEDS: CEFTRIAXONE 1 GM 1 GM in 0.9 % SODIUM CHLORIDE 50 ML IV (09:07)
[2024-04-04] MEDS: diazePAM 5MG TABLET 2.5 MG PO ×2 (09:09→13:35)
[2024-04-04] MEDS: INSULIN GLARGINE 100 UNITS/ML 3ML FLEXPEN 10 UNIT SUBCUT (09:18)
[2024-04-04 09:27] LABS: POC Glucose,Bedside 140 (70-110)
[2024-04-04 09:29] LABS: Folate > 20.00 ng/mL
[2024-04-04] MEDS: POTASSIUM CHLORIDE 20MEQ TAB 40 MEQ PO ×2 (11:58→13:40)
[2024-04-04] MEDS: MAGNESIUM SULFATE IN WATER 2 GM/50 ML PIGGYBACK IV ×2 (11:58→13:34)
[2024-04-04 12:00] VITALS: BP 135/65; PULSE 89; RESP 18; TEMP 37.1; O2SAT 98
[2024-04-04 12:15] LABS: POC Glucose,Bedside 127 (70-110)
--- NOTE | 2024-04-04 12:56 | EXP.DC.SUM ---
General Admission date:: 04/02/24 HPI HPI HPI: Adeel Nichole is a 69-year-old male with a medical history significant for chronic cauda equina syndrome with neurogenic bladder and chronic indwelling Rodriguez, COPD, hypertension, hyperlipidemia, type 2 diabetes who presents with worsening generalized weakness, dizziness over the past few days. He states he was attempting to transfer into his wheelchair today when he experienced presyncope. He has felt more lightheaded over the past few days. He also notes that he has been urinating less, and feeling generally weak over the past few days. He denies chest pain at this time. He continues to have bowel movements. Blood pressure is soft 95/63 on arrival. Workup in the ED significant for WBC 11.8, creatinine 1.3 (baseline around 1.0), and UA strongly suggesting UTI. CXR did not show acute findings. Patient given cefepime and 2L LR bolus. Case discussed with ED provider and decision was made to admit patient for generalized weakness, dizziness in the setting of UTI. Hospital Course Hospital Course Hospital Course: Adeel Nichole is a 69-year-old male with a medical history significant for chronic cauda equina syndrome with neurogenic bladder and chronic indwelling Rodriguez, COPD, hypertension, hyperlipidemia, type 2 diabetes who presents with worsening generalized weakness, dizziness over the past few days. He states he was attempting to transfer into his wheelchair today when he experienced presyncope. He has felt more lightheaded over the past few days. He also notes that he has been urinating less, and feeling generally weak over the past few days. He denies chest pain at this time. He continues to have bowel movements. Blood pressure is soft 95/63 on arrival. Workup in the ED significant for WBC 11.8, creatinine 1.3 (baseline around 1.0), and UA strongly suggesting UTI. CXR did not show acute findings. Patient given cefepime and 2 L LR bolus. Case discussed with ED provider and decision was made to admit patient for generalized weakness, dizziness, STEPHANI in the setting of UTI. #Generalized weakness #Lightheadedness #UTI ? Endorsed decreased urinary output, generalized weakness over the past few days. Also endorses lightheadedness especially with movement. Poor p.o. intake over the past few days as well prior to admission. Patient at baseline is bed bound due to chronic cauda equina syndrome. ? These constellation of findings alluded to dehydration and weakness from urinary tract infection in the setting of chronic indwelling Rodriguez for neurogenic bladder. - UA suggestive of UTI, Previous urine culture sensitive to ceftriaxone. ? Rodriguez catheter replaced. ? TSH, T4, B12, folate normal. - Decreased diazepam from 5mg to 2.5mg TID. Advised to go back to normal dose if he becomes symtomatically anxious. - Weakness, dizziness improved with fluid rehydration and treatment with ceftriaxone. However, urine cultures after discharge showed resistance to ceftriaxone, switched to levaquin. #STEPHANI ? Initial creatinine 1.3, improved to baseline 1.0 with fluid rehyration as above. #Chronic cauda equina syndrome #Neurogenic bladder ? Follows with neurosurgery, last appointment 2 months ago. ? Patient has chronic lower extremity weakness, back pain. ? Continues to have bowel movements. ? Not suggestive of acute on chronic cauda equina syndrome at this time. Stable chronic conditions: Mood disorder/depression: Continue topamax, citalopram 20 mg daily and Abilify 5 mg daily, Valium 2.5 mg 3 times a day, and trazodone 100 mg nightly to help with sleep and mood. COPD: DuoNebs as needed Hypertension/CAD/CHF: Held Aldactone given stable pressures without it. A-fib: Xarelto 15 mg daily. Continue metoprolol after BP improves. Hypothyroid: Continue levothyroxine 175 mcg daily Diabetes: Lantus 10 units daily, take 60 units at home. Uptitrate as needed. LDSSI, ACHS glucose checks. Exam Data for Last 24 hours Vital signs and Labs for Last 24 Hours: Temp Pulse Resp BP Pulse Ox O2 Del Method O2 Flow Rate 98.7 F 89 18 135/65 98 Nasal Cannula 2 04/04/24 12:00 04/04/24 12:00 04/04/24 12:00 04/04/24 12:00 04/04/24 12:00 04/04/24 12:00 04/04/24 12:00 Laboratory Results - last 24 hr 04/03/24 14:35: Chlamy pneumoniae PCR Not detected, Adenovirus (PCR) Not detected, B. pertussis DNA (PCR) Not detected, Coronavirus OC43 (PCR) Not detected, Coronavirus HKU1 (PCR) Not detected, Coronavirus 229E (PCR) Not detected, SARS-CoV-2 (PCR) Not detected, Coronavirus NL63 (PCR) Not detected, Human Metapneumovir PCR Not detected, Influenza A (H1) PCR Not detected, Influ A (H1N1/09) PCR Not detected, Influenza A (H3) PCR Not detected, Influenza Type A (PCR) Not detected, Influenza Type B (PCR) Not detected, M. pneumoniae (PCR) Not detected, Parainfluenza 1 (PCR) Not detected, Parainfluenza 2 (PCR) Not detected, Parainfluenza 3 (PCR) Not detected, Parainfluenza 4 (PCR) Not detected, RSV (PCR) Not detected, Entero/Rhino (PCR) Not detected 04/03/24 16:37: POC Glucose 125 H 04/03/24 20:29: POC Glucose 151 H 04/04/24 05:28: POC Glucose 111 H 04/04/24 06:40: WBC 7.9, RBC 4.85, Hgb 11.0 L, Hct 34.8 L, MCV 71.8 L, MCH 22.6 L, MCHC 31.4 L, RDW 20.1 H, Plt Count 245, MPV 8.2, Neut % (Auto) 73.8, Lymph % (Auto) 17.9, [place] % (Auto) 6.3, Eos % (Auto) 1.6, Baso % (Auto) 0.4, Neut # (Auto) 5.9, Lymph # (Auto) 1.4, [place] # (Auto) 0.5, Eos # (Auto) 0.1, Baso # (Auto) 0.0, Sodium 140, Potassium 3.2 L, Chloride 102, Carbon Dioxide 29, Anion Gap 12.2, BUN 11 D, Creatinine 1.00, Estimated Creat Clear 94, Estimated GFR 75, Est GFR ( Amer) 90 D, Glucose 116 H, Calcium 9.3, Magnesium 1.7, Total Bilirubin 0.5, AST 35 D, ALT 16, Alkaline Phosphatase 85, Total Protein 6.6, Albumin 3.7, Globulin 2.9, Albumin/Globulin Ratio 1.3, Vitamin B12 895, Folate > 20.00, TSH 1.88, Free T4 1.44 04/04/24 09:21: POC Glucose 140 H 04/04/24 12:02: POC Glucose 127 H I & O for Last 24 hours: Intake & Output 04/01/24 04/02/24 04/03/24 04/04/24 23:59 23:59 23:59 23:59 Intake Total 1138 / 1138 3354 / 4109 1198 / 1198 Output Total 2200 / 2200 3475 / 4475 1375 / 1375 Balance -1062 / -1062 -121 / -366 -177 / -177 Weight 88.451 kg 91.762 kg 92.85 kg Microbiology Reports for the Last 24 Hours: Microbiology 04/02/24 11:03 Blood Blood Culture - Preliminary NO GROWTH AFTER 48 HOURS 04/02/24 10:13 Blood Blood Culture - Preliminary NO GROWTH AFTER 48 HOURS 04/02/24 13:06 Urine,Clean Catch Urine Culture - Preliminary Gram Negative Rods Results Data Completed and Pending Labs on day of discharge: Labs from last 24 hours 04/04/24 04/04/24 04/04/24 12:02 09:21 06:40 WBC 7.9 RBC 4.85 Hgb 11.0 L Hct 34.8 L MCV 71.8 L MCH 22.6 L MCHC 31.4 L RDW 20.1 H Plt Count 245 MPV 8.2 Neut % (Auto) 73.8 Lymph % (Auto) 17.9 [place] % (Auto) 6.3 Eos % (Auto) 1.6 Baso % (Auto) 0.4 Neut # (Auto) 5.9 Lymph # (Auto) 1.4 [place] # (Auto) 0.5 Eos # (Auto) 0.1 Baso # (Auto) 0.0 Sodium 140 Potassium 3.2 L Chloride 102 Carbon Dioxide 29 Anion Gap 12.2 BUN 11 D Creatinine 1.00 Estimated Creat Clear 94 Estimated GFR 75 Est GFR ( Amer) 90 D Glucose 116 H POC Glucose 127 H 140 H Calcium 9.3 Magnesium 1.7 Total Bilirubin 0.5 AST 35 D ALT 16 Alkaline Phosphatase 85 Total Protein 6.6 Albumin 3.7 Globulin 2.9 Albumin/Globulin Ratio 1.3 Vitamin B12 895 Folate > 20.00 TSH 1.88 Free T4 1.44 Chlamy pneumoniae PCR Adenovirus (PCR) B. pertussis DNA (PCR) Coronavirus OC43 (PCR) Coronavirus HKU1 (PCR) Coronavirus 229E (PCR) SARS-CoV-2 (PCR) Coronavirus NL63 (PCR) Human Metapneumovir PCR Influenza A (H1) PCR Influ A (H1N1/09) PCR Influenza A (H3) PCR Influenza Type A (PCR) Influenza Type B (PCR) M. pneumoniae (PCR) Parainfluenza 1 (PCR) Parainfluenza 2 (PCR) Parainfluenza 3 (PCR) Parainfluenza 4 (PCR) RSV (PCR) Entero/Rhino (PCR) 04/04/24 04/03/24 04/03/24 05:28 20:29 16:37 WBC RBC Hgb Hct MCV MCH MCHC RDW Plt Count MPV Neut % (Auto) Lymph % (Auto) [place] % (Auto) Eos % (Auto) Baso % (Auto) Neut # (Auto) Lymph # (Auto) [place] # (Auto) Eos # (Auto) Baso # (Auto) Sodium Potassium Chloride Carbon Dioxide Anion Gap BUN Creatinine Estimated Creat Clear Estimated GFR Est GFR ( Amer) Glucose POC Glucose 111 H 151 H 125 H Calcium Magnesium Total Bilirubin AST ALT Alkaline Phosphatase Total Protein Albumin Globulin Albumin/Globulin Ratio Vitamin B12 Folate TSH Free T4 Chlamy pneumoniae PCR Adenovirus (PCR) B. pertussis DNA (PCR) Coronavirus OC43 (PCR) Coronavirus HKU1 (PCR) Coronavirus 229E (PCR) SARS-CoV-2 (PCR) Coronavirus NL63 (PCR) Human Metapneumovir PCR Influenza A (H1) PCR Influ A (H1N1/09) PCR Influenza A (H3) PCR Influenza Type A (PCR) Influenza Type B (PCR) M. pneumoniae (PCR) Parainfluenza 1 (PCR) Parainfluenza 2 (PCR) Parainfluenza 3 (PCR) Parainfluenza 4 (PCR) RSV (PCR) Entero/Rhino (PCR) 04/03/24 14:35 WBC RBC Hgb Hct MCV MCH MCHC RDW Plt Count MPV Neut % (Auto) Lymph % (Auto) [place] % (Auto) Eos % (Auto) Baso % (Auto) Neut # (Auto) Lymph # (Auto) [place] # (Auto) Eos # (Auto) Baso # (Auto) Sodium Potassium Chloride Carbon Dioxide Anion Gap BUN Creatinine Estimated Creat Clear Estimated GFR Est GFR ( Amer) Glucose POC Glucose Calcium Magnesium Total Bilirubin AST ALT Alkaline Phosphatase Total Protein Albumin Globulin Albumin/Globulin Ratio Vitamin B12 Folate TSH Free T4 Chlamy pneumoniae PCR Not detected Adenovirus (PCR) Not detected B. pertussis DNA (PCR) Not detected Coronavirus OC43 (PCR) Not detected Coronavirus HKU1 (PCR) Not detected Coronavirus 229E (PCR) Not detected SARS-CoV-2 (PCR) Not detected Coronavirus NL63 (PCR) Not detected Human Metapneumovir PCR Not detected Influenza A (H1) PCR Not detected Influ A (H1N1/09) PCR Not detected Influenza A (H3) PCR Not detected Influenza Type A (PCR) Not detected Influenza Type B (PCR) Not detected M. pneumoniae (PCR) Not detected Parainfluenza 1 (PCR) Not detected Parainfluenza 2 (PCR) Not detected Parainfluenza 3 (PCR) Not detected Parainfluenza 4 (PCR) Not detected RSV (PCR) Not detected Entero/Rhino (PCR) Not detected Preliminary micro results at discharge 04/02/24 11:03 Blood Culture - Preliminary Blood NO GROWTH AFTER 48 HOURS 04/02/24 10:13 Blood Culture - Preliminary Blood NO GROWTH AFTER 48 HOURS 04/02/24 13:06 Urine Culture - Preliminary Urine,Clean Catch Gram Negative Rods DS: Diagnosis Discharge Diagnosis (1) STEPHANI (acute kidney injury): Status: Acute Code(s): N17.9 - Acute kidney failure, unspecified (2) Hypotension: Status: Acute Code(s): I95.9 - Hypotension, unspecified (3) Generalized weakness: Status: Acute Code(s): R53.1 - Weakness (4) UTI (urinary tract infection): Status: Acute Code(s): N39.0 - Urinary tract infection, site not specified (5) Lightheadedness: Status: Acute Code(s): R42 - Dizziness and giddiness Meds Home Medications and Allergies Home Medications ?Medication ?Instructions ?Recorded ?Confirmed ?Type aspirin 81 mg chewable tablet 81 mg PO DAILY 03/29/23 04/02/24 History rivaroxaban 15 mg tablet 15 mg PO QPMWITHMEAL Blood 04/17/23 04/02/24 Rx thinner/AFIB 90 days #90 tabs semaglutide 2 mg/dose (8 mg/3 mL) 2 mg SQ WEEKLY 06/14/23 04/02/24 History subcutaneous pen injector (Ozempic) methenamine hippurate 1 gram tablet 1 g PO DAILY 12/11/23 04/02/24 History spironolactone 25 mg tablet 25 mg PO BID 12/11/23 04/02/24 History topiramate 25 mg tablet (Topamax) 25 mg PO BID 12/11/23 04/02/24 History topiramate 50 mg tablet 50 mg PO BID 12/11/23 04/02/24 History metoprolol succinate 25 mg 25 mg PO BID #180 tabs 01/03/24 04/02/24 Rx tablet,extended release 24 hr insulin glargine 100 unit/mL (3 60 unit SQ DAILY 02/11/24 04/02/24 History mL) subcutaneous pen (Concept3Daglar JK-GroupkaiaPen U-100 Insulin) blood-glucose meter #1 ea 03/19/24 04/02/24 Rx aripiprazole 5 mg tablet 5 mg PO DAILY 04/02/24 04/02/24 History atorvastatin 40 mg tablet 40 mg PO HS 04/02/24 04/02/24 History oxycodone 10 mg tablet 10 mg PO Q6HP PRN Moderate Pain 04/02/24 04/02/24 History (Scale Score 5-6) ranolazine 500 mg tablet,extended 500 mg PO BID 04/02/24 04/02/24 History release,12 hr tizanidine 6 mg capsule 6 mg PO TIDP PRN muscle spasticity 04/02/24 04/02/24 History diazepam 5 mg tablet 2.5 mg (1/2 x 5 mg) PO TID 30 days 04/04/24 04/02/24 Rx #0 tabs furosemide 40 mg tablet 40 mg PO DAILY 30 days #0 tabs 04/04/24 04/02/24 Rx levofloxacin 750 mg tablet 750 mg PO DAILY 10 days #10 tabs 04/07/24 Rx levothyroxine 175 mcg tablet See Rx Instructions .Route 04/07/24 Rx .COMPLEX #90 tabs pantoprazole 40 mg tablet,delayed See Rx Instructions .Route 04/07/24 Rx release .COMPLEX #60 tabs pregabalin 75 mg capsule 75 mg PO BID 30 days #60 caps 04/10/24 Rx New Prescriptions to Start Prescriptions: levofloxacin Paulo Paulino Allergies Allergy/AdvReac Type Severity Reaction Status Date / Time gabapentin [From Neurontin] Allergy Intermediate Rash Verified 02/11/24 08:25 Discharge Plan Disposition Patient Disposition: Home Health Service Condition: Fair Discharge Order Discharge Orders: Discharge Order (Routine); Ordered 04/04/24 Ordered By: Paulo Paulino Follow up Plan Follow up with: Paulo Brody DO [Primary Care Provider] - 04/10/24 9:30 am Prescriptions/Medication Reconciliation: New levofloxacin 750 mg tablet 750 mg PO DAILY 10 Days Qty: 10 0RF Continued Ozempic 2 mg/dose (8 mg/3 mL) pen injector 2 mg SQ WEEKLY Rx Instructions: on mondays rivaroxaban 15 mg tablet 15 mg PO QPMWITHMEAL 90 Days Qty: 90 2RF topiramate [Topamax] 25 mg tablet 25 mg PO BID methenamine hippurate 1 gram tablet 1 g PO DAILY Patient Comments: TAKE ONE TABLET BY MOUTH EVERY DAY topiramate 50 mg tablet 50 mg PO BID Patient Comments: TAKE ONE TABLET BY MOUTH TWICE DAILY metoprolol succinate 25 mg tablet extended release 24 hr 25 mg PO BID Qty: 180 3RF (DME) blood-glucose meter Kit See Rx Instructions .ROUTE .MEDSUPPLY Qty: 1 0RF Rx Instructions: As directed or bid Whatever the insurance will pay for along with the test stripes and lancets aspirin 81 mg tablet,chewable 81 mg PO DAILY insulin glargine [Basaglar KwikPen U-100 Insulin] 100 unit/mL (3 mL) insulin pen 60 unit SQ DAILY atorvastatin 40 mg tablet 40 mg PO HS aripiprazole 5 mg tablet 5 mg PO DAILY ranolazine 500 mg tablet extended release 12 hr 500 mg PO BID Rx Instructions: do not break, crush, or chew tablet(s) oxycodone 10 mg tablet 10 mg PO Q6HP PRN (Reason: Moderate Pain (Scale Score 5-6)) furosemide 40 mg tablet 40 mg PO DAILY 30 Days Qty: 0 0RF Changed diazepam 5 mg tablet 2.5 mg PO TID 30 Days Qty: 0 0RF Held spironolactone 25 mg tablet 25 mg PO BID Hold Instructions: Resume on 04/11/24. Please hold this medication as her blood pressures have been stable without it. Talk to your PCP or auxiliary engineer before restarting medication. Patient Comments: TAKE ONE TABLET BY MOUTH TWICE DAILY FOR FLUID tizanidine 6 mg capsule 6 mg PO TIDP PRN (Reason: muscle spasticity) Hold Instructions: Resume on 04/11/24. This medication can cause dizziness. Take only if absolutely needed. No Action levothyroxine 175 mcg tablet See Rx Instructions .ROUTE .COMPLEX Qty: 90 0RF Dose Instruction: TAKE ONE TABLET BY MOUTH EVERY DAY Rx Instructions: TAKE ONE TABLET BY MOUTH EVERY DAY pantoprazole 40 mg tablet,delayed release (DR/EC) See Rx Instructions .ROUTE .COMPLEX Qty: 60 2RF Dose Instruction: TAKE ONE TABLET BY MOUTH EVERY DAY FOR acid reflux Rx Instructions: TAKE ONE TABLET BY MOUTH EVERY DAY FOR acid reflux pregabalin 75 mg capsule 75 mg PO BID 30 Days Qty: 60 1RF Problem Reconciliation Problems Reviewed?: Yes Patient Discharge Instructions ACTIVITY: Continue current activity DIET: continue same diet Additional Instructions: If you are feeling more anxious, you may increase your diazepam back to your normal dose of 5 mg up to 3 times a day. However, this can make you drowsy and dizzy. Talk to your PCP for further guidance. Patient Instructions: DI for Syncope in Adults (Fainting), DI for Urinary Tract Infection (UTI), DI for Muscle Weakness Print Language: German Providers Primary Care Provider: Paulo Brody Admit Provider: Paulo Paulino Attending Provider: Paulo Paulino
[2024-04-04] MEDS: RIVAROXABAN 15MG TABLET 15 MG PO (17:11)
[2024-04-04] MEDS: humaLOG 100 UNITS/ML 10ML VIAL (SSI) SUBCUT (17:19)
[2024-04-04 17:42] LABS: POC Glucose,Bedside 171 (70-110)
--- NOTE | 2024-04-07 08:37 | SW/DCPLANNER ---
Per MD I did call and update patient that he will NOT need IV antibiotics and PO antibiotics and will be [facility].
== END 2024-04-04 17:57 | disposition home health service (06) ==
LOC: ER 14:02 → 2ND 14:16
PROVIDERS: Admitting Provider Student in an Organized Health Care Education/Training Program; Emergency Provider Emergency Medicine; PCP Internal Medicine; Visit Provider Student in an Organized Health Care Education/Training Program
DX: N17.9 Acute kidney failure, unspecified (principal); I95.9 Hypotension, unspecified; R53.1 Weakness; N39.0 Urinary tract infection, site not specified; R42 Dizziness and giddiness; G83.4 Cauda equina syndrome; N31.9 Neuromuscular dysfunction of bladder, unspecified; J44.9 Chronic obstructive pulmonary disease, unspecified; E78.5 Hyperlipidemia, unspecified; I12.9 Hypertensive chronic kidney disease with stage 1 through stage 4 chronic kidney disease, or unspecified chronic kidney disease; E11.22 Type 2 diabetes mellitus with diabetic chronic kidney disease; N18.2 Chronic kidney disease, stage 2 (mild); Z79.4 Long term (current) use of insulin; Z79.899 Other long term (current) drug therapy
CPT/HCPCS: 36415; 71045; 80053; 81001; 82607; 82746; 82962; 83605; 83690; 83735; 83880; 84439; 84443; 84484; 85025; 85610; 85730; 86803; 87040; 87081; 87086; 87088; 87186; 87265; 87389; 87486; 87581; 87632; 87635; 93005; 97110; 97163; 99291; G0378; J0696; J3475; J7030; J7120

== ENCOUNTER 2024-04-20 14:14 | Emergency (ER) | payer MEDICARE, OTHER, SELFPAY ==
[2024-04-20] VITALS (8 sets, daily range): BP systolic 92–113; BP diastolic 52–66; PULSE 70–88; RESP 18–20; TEMP 36.8; O2SAT 95–99; BMI 29.4
--- NOTE | 2024-04-20 14:30 | PC.NURSE ---
FSBS is 113 at this time.
[2024-04-20 15:47] LABS: Microscopic,Cath URINE MICROSCOPIC (MICROSCOPIC)
--- NOTE | 2024-04-20 15:47 | ED_ITS ---
Discharge Plan Disposition Patient Disposition: Home, Self-Care Condition: Good Prescriptions Prescriptions: New levofloxacin 500 mg tablet 500 mg PO DAILY 7 Days Qty: 7 0RF No Action Ozempic 2 mg/dose (8 mg/3 mL) pen injector 2 mg SQ WEEKLY Rx Instructions: on mondays rivaroxaban 15 mg tablet 15 mg PO QPMWITHMEAL 90 Days Qty: 90 2RF topiramate [Topamax] 25 mg tablet 25 mg PO BID spironolactone 25 mg tablet 25 mg PO BID Patient Comments: TAKE ONE TABLET BY MOUTH TWICE DAILY FOR FLUID methenamine hippurate 1 gram tablet 1 g PO DAILY Patient Comments: TAKE ONE TABLET BY MOUTH EVERY DAY topiramate 50 mg tablet 50 mg PO BID Patient Comments: TAKE ONE TABLET BY MOUTH TWICE DAILY metoprolol succinate 25 mg tablet extended release 24 hr 25 mg PO BID Qty: 180 3RF (DME) blood-glucose meter Kit See Rx Instructions .ROUTE .MEDSUPPLY Qty: 1 0RF Rx Instructions: As directed or bid Whatever the insurance will pay for along with the test stripes and lancets levothyroxine 175 mcg tablet See Rx Instructions .ROUTE .COMPLEX Qty: 90 0RF Dose Instruction: TAKE ONE TABLET BY MOUTH EVERY DAY Rx Instructions: TAKE ONE TABLET BY MOUTH EVERY DAY pantoprazole 40 mg tablet,delayed release (DR/EC) See Rx Instructions .ROUTE .COMPLEX Qty: 60 2RF Dose Instruction: TAKE ONE TABLET BY MOUTH EVERY DAY FOR acid reflux Rx Instructions: TAKE ONE TABLET BY MOUTH EVERY DAY FOR acid reflux pregabalin 75 mg capsule 75 mg PO BID 30 Days Qty: 60 1RF aspirin 81 mg tablet,chewable 81 mg PO DAILY insulin glargine [Basaglar KwikPen U-100 Insulin] 100 unit/mL (3 mL) insulin pen 60 unit SQ DAILY atorvastatin 40 mg tablet 40 mg PO HS aripiprazole 5 mg tablet 5 mg PO DAILY tizanidine 6 mg capsule 6 mg PO TIDP PRN (Reason: muscle spasticity) ranolazine 500 mg tablet extended release 12 hr 500 mg PO BID Rx Instructions: do not break, crush, or chew tablet(s) oxycodone 10 mg tablet 10 mg PO Q6HP PRN (Reason: Moderate Pain (Scale Score 5-6)) furosemide 40 mg tablet 40 mg PO DAILY 30 Days Qty: 0 0RF diazepam 5 mg tablet 2.5 mg PO TID 30 Days Qty: 0 0RF levofloxacin 750 mg tablet 750 mg PO DAILY 10 Days Qty: 10 0RF Referrals Follow up/Referrals: Shaneka (ED)Gwen APRN [Emergency Midlevel Provider] - See instructions Paulo Acuña MD [Staff Physician] - See instructions Provider,MD Terese [Primary Care Provider] - See instructions Clinical Impressions Clinical Impression: UTI (urinary tract infection) due to urinary indwelling catheter Qualifiers: Indwelling urinary catheter type: indwelling urethral catheter Encounter type: initial encounter Qualified Code(s): T83.511A - Infection and inflammatory reaction due to indwelling urethral catheter, initial encounter Print Language Print Language: Sammarinese Discharge ED Provider: Zenon Vora General Adult HPI <Gwen Munroe (ED)ABNER - Last Filed: 04/20/24 16:07> General Chief complaint: Recheck/Abnormal Lab/Rx Stated complaint: HEMATURIA Time Seen by Provider: 04/20/24 14:25 Mode of Arrival: EMS Source of Information: Patient and EMS Limitations: No Limitations Description of Symptoms (Recalled from ER Triage Doc. by RN): pt came here for blood in urine denies any pain History of Present Illness HPI narrative: This is a 69-year-old male who presents today for complaint of blood in his catheter. He has a neurogenic bladder and has had a catheter for 1 year. He says he has some pressure over his bladder. He denies any other problems or concerns today. Related Data Home Medications ?Medication ?Instructions ?Recorded ?Confirmed aspirin 81 mg chewable tablet 81 mg PO DAILY 03/29/23 04/02/24 semaglutide 2 mg/dose (8 mg/3 mL) 2 mg SQ WEEKLY 06/14/23 04/02/24 subcutaneous pen injector (Ozempic) methenamine hippurate 1 gram tablet 1 g PO DAILY 12/11/23 04/02/24 spironolactone 25 mg tablet 25 mg PO BID 12/11/23 04/02/24 topiramate 25 mg tablet (Topamax) 25 mg PO BID 12/11/23 04/02/24 topiramate 50 mg tablet 50 mg PO BID 12/11/23 04/02/24 insulin glargine 100 unit/mL (3 60 unit SQ DAILY 02/11/24 04/02/24 mL) subcutaneous pen (Basaglar KwikPen U-100 Insulin) aripiprazole 5 mg tablet 5 mg PO DAILY 04/02/24 04/02/24 atorvastatin 40 mg tablet 40 mg PO HS 04/02/24 04/02/24 oxycodone 10 mg tablet 10 mg PO Q6HP PRN Moderate Pain 04/02/24 04/02/24 (Scale Score 5-6) ranolazine 500 mg tablet,extended 500 mg PO BID 04/02/24 04/02/24 release,12 hr tizanidine 6 mg capsule 6 mg PO TIDP PRN muscle spasticity 04/02/24 04/02/24 Previous Rx's ?Medication ?Instructions ?Recorded rivaroxaban 15 mg tablet 15 mg PO QPMWITHMEAL Blood 04/17/23 thinner/AFIB 90 days #90 tabs metoprolol succinate 25 mg 25 mg PO BID #180 tabs 01/03/24 tablet,extended release 24 hr blood-glucose meter #1 ea 03/19/24 diazepam 5 mg tablet 2.5 mg (1/2 x 5 mg) PO TID 30 days 04/04/24 #0 tabs furosemide 40 mg tablet 40 mg PO DAILY 30 days #0 tabs 04/04/24 levofloxacin 750 mg tablet 750 mg PO DAILY 10 days #10 tabs 04/07/24 levothyroxine 175 mcg tablet See Rx Instructions .Route 04/07/24 .COMPLEX #90 tabs pantoprazole 40 mg tablet,delayed See Rx Instructions .Route 04/07/24 release .COMPLEX #60 tabs pregabalin 75 mg capsule 75 mg PO BID 30 days #60 caps 04/10/24 levofloxacin 500 mg tablet 500 mg PO DAILY 7 days #7 tabs 04/20/24 Allergies Allergy/AdvReac Type Severity Reaction Status Date / Time gabapentin (From Neurontin) Allergy Intermediate Rash Verified 02/11/24 08:25 [facility] <Gwen Munroe (ED), [employer] - Last Filed: 04/20/24 16:07> [facility] Disclaimer: The information contained in this section may have been updated after the patient was seen, as this information can be updated by other users. Medical History Tachycardia Acute exacerbation of chronic obstructive pulmonary disease Acute urinary retention Chronic pain This patient has multiple reasons to have chronic pain including, diabetic peripheral polyneuropathy, cauda equina syndrome, and other issues. We will continue his oxycodone but I would prefer to do this without the acetaminophen. I will give him up to 4 tablets/day of oxycodone 10 mg. Goal is to keep him comfortable as best as possible. He is on diazepam as well and this is greatly concerning but we will discuss it at his next visit. At risk for osteoporosis Diabetes mellitus type 2 in obese As I mentioned in the past having rigid A1c goals does not seem appropriate in this patient. However according to the patient and his daughter his last A1c which was done outside of our system was 6.5 which is excellent. Will continue with the current therapies. At risk for polypharmacy Unfortunately patient is unable to get palliative care. I will try to limit the burden of visits to the clinic. Will see him back in 3 months. At that time they can certainly call in and if they do not come out I would just say will refill another 3 months. Pneumonia Healthcare-associated pneumonia Chronic respiratory failure with hypoxia Chronic indwelling Rodriguez catheter I reviewed the UA that was obtained recently. This is typical for an indwelling catheter and I do not think there is anything further to do at this point. Peritracheal mass Acute urinary retention Cauda equina syndrome Probably causing some of his pain. Continue his pain medications which appear to be controlling his pain fairly well. PDMP was checked. Paralysis, progressive Encounter for immunization Atypical angina Chest pain Abnormal EKG Edema Leg pain, bilateral SOB (shortness of breath) Chronic systolic heart failure CKD (chronic kidney disease) stage 2, GFR 60-89 ml/min Diabetes mellitus COPD (chronic obstructive pulmonary disease) HLD (hyperlipidemia) Patient is on atorvastatin. Last lipid panel does reveal a total triglyceride of 108 total cholesterol 139 LDL of 78 VLDL of 22 HDL of 39. This really is good panel and I would continue atorvastatin 40. HTN (hypertension) Surgical History H/O repair of rotator cuff Family History Other Diabetes Hypertension Stroke Social History (Updated 04/02/24 @ 15:40 by Lucy Rodrigues RN) Smoking Status: Former smoker tobacco type: cigarettes alcohol intake: never substance use type: denies use current occupational status: unemployed Travel in the last 8 weeks: None household members: spouse housing: house caffeine: Yes Other Medical History Have you received the Flu Vaccine for this season: No Have you received the Pneumonia Vaccine: No <Gwen Killakeisha (ED), [employer] - Last Filed: 04/20/24 16:07> ROS Obtained: Yes Systems reviewed as appropriate & no additional complaints except as documented Constitutional Constitutional: Reports as per HPI Physical Exam <Gwen Romilakeisha (ED), [employer] - Last Filed: 04/20/24 16:07> General General appearance: alert and in no apparent distress Head Head exam: atraumatic and normocephalic Eye Eye exam: Present normal appearance, PERRL and EOMI ENT ENT exam: Present normal exam and normal oropharynx Neck Neck exam: Present normal inspection and full ROM Chest Chest inspection: Present normal inspection Respiratory Respiratory exam: Present normal lung sounds bilaterally Cardiovascular Cardiovascular exam: Present regular rate, normal rhythm, normal heart sounds, +S1 and +S2 Abdominal Exam Abdominal exam: Present soft and normal bowel sounds Abdominal tenderness: Present suprapubic exam: Present normal inspection Extremities Exam Extremities exam: Present normal inspection, full ROM and normal capillary refill Neurological Exam Neurological exam: Present alert and oriented X3 Skin Skin exam: Present warm and dry Medical Decision Making <Gwen Romilakeisha (ED), [employer] - Last Filed: 04/20/24 16:07> Medical Records Medical records reviewed: Yes I reviewed the patient's medical records. Screening: Per USPSTF and CDC recommendations, given the prevalence of disease in our region, it is our hospital?s policy to screen for HIV and viral Hepatitis for all patients aged 18 and over and those with ongoing risk factors. Heber Inquiry Heber was queried for this patient: No Vital Signs: 04/20/24 14:14 04/20/24 15:00 04/20/24 15:30 Temperature 98.2 F Temperature Source Oral Pulse Rate 84 84 Pulse Rate [Right Radial] 88 Respiratory Rate 20 Blood Pressure 98/52 L 92/64 L Blood Pressure [Right Arm] 104/58 L Blood Pressure Mean [Right Arm] 73 02 Sat by Pulse Oximetry 95 96 99 Oxygen Delivery Method Room Air Room Air Room Air 04/20/24 15:37 04/20/24 16:00 04/20/24 16:30 Temperature Temperature Source Pulse Rate 86 80 80 Pulse Rate [Right Radial] Respiratory Rate Blood Pressure 99/56 L 108/60 L 113/66 Blood Pressure [Right Arm] Blood Pressure Mean [Right Arm] 02 Sat by Pulse Oximetry 96 97 97 Oxygen Delivery Method Room Air Room Air Room Air 04/20/24 16:56 04/20/24 17:13 Temperature 98.2 F Temperature Source Pulse Rate 78 70 Pulse Rate [Right Radial] Respiratory Rate 18 Blood Pressure 108/60 L 108/60 L Blood Pressure [Right Arm] Blood Pressure Mean [Right Arm] 02 Sat by Pulse Oximetry 98 Oxygen Delivery Method Room Air Room Air Lab Data Lab Results 04/20/24 15:22: Urine Color Yellow, Urine Appearance Clear, Urine pH 6.5, Ur Specific [place] 1.010, Urine Protein 3+, Urine Glucose (UA) 1+, Urine Ketones 1+, Urine Blood 3+, Urine Nitrate Positive A, Urine Bilirubin 3+ A, Urine Urobilinogen 2.0, Ur Leukocyte Esterase 3+ A, Urine RBC Tntc, Urine WBC Tntc A, Ur Squamous Epith Cells None, Amorphous Sediment Cancelled, Urine Bacteria 4+ A, Urine Mucus Cancelled Orders (Tests/Meds): ED MEDICATIONS Discontinued Medications Generic Name Dose Route Start Last Admin Trade Name Freq PRN Reason Stop Dose Admin Levofloxacin 500 mg 04/20/24 16:17 04/20/24 16:26 Levofloxacin 500mg Tab PO 04/20/24 16:18 500 mg ONCE ONE Administration ORDERS Category Date Time Status Urinalysis (cathed specimen) Stat Lab 04/20/24 15:22 Completed Urine Culture(cathed specimen) Stat Micro 04/20/24 15:22 Received Medical Decision Narrative: Insert review patient is a 69-year-old male presenting to the emergency department for evaluation of blood in his catheter. Patient is hemodynamically stable and nontoxic-appearing upon arrival, afebrile. Differential diagnosis includes UTI, hemorrhagic bladder among others. Workup will be conducted with UA and bladder scan. Considered lab work and CT however patient was well- appearing and vitals were normal so we chose not to image or do lab work. Initial inventions include UA and bladder scan. Initial workup reviewed by me remarkable for UTI. Upon repeat evaluation patient's pain is improved. Patient had nothing on his bladder scan. Patient is safe for discharge home after being given Levaquin and a referral to Dr. Acuña. <Adrian David MD - Last Filed: 04/20/24 16:00> Heber Davis Pt receiving controlled substance: No Vital Signs: 04/20/24 14:14 04/20/24 15:00 04/20/24 15:30 Temperature 98.2 F Temperature Source Oral Pulse Rate 84 84 Pulse Rate [Right Radial] 88 Respiratory Rate 20 Blood Pressure 98/52 L 92/64 L Blood Pressure [Right Arm] 104/58 L Blood Pressure Mean [Right Arm] 73 02 Sat by Pulse Oximetry 95 96 99 Oxygen Delivery Method Room Air Room Air Room Air 04/20/24 15:37 04/20/24 16:00 04/20/24 16:30 Temperature Temperature Source Pulse Rate 86 80 80 Pulse Rate [Right Radial] Respiratory Rate Blood Pressure 99/56 L 108/60 L 113/66 Blood Pressure [Right Arm] Blood Pressure Mean [Right Arm] 02 Sat by Pulse Oximetry 96 97 97 Oxygen Delivery Method Room Air Room Air Room Air 04/20/24 16:56 04/20/24 17:13 Temperature 98.2 F Temperature Source Pulse Rate 78 70 Pulse Rate [Right Radial] Respiratory Rate 18 Blood Pressure 108/60 L 108/60 L Blood Pressure [Right Arm] Blood Pressure Mean [Right Arm] 02 Sat by Pulse Oximetry 98 Oxygen Delivery Method Room Air Room Air Lab Data Lab Results 04/20/24 15:22: Urine Color Yellow, Urine Appearance Clear, Urine pH 6.5, Ur Specific [place] 1.010, Urine Protein 3+, Urine Glucose (UA) 1+, Urine Ketones 1+, Urine Blood 3+, Urine Nitrate Positive A, Urine Bilirubin 3+ A, Urine Urobilinogen 2.0, Ur Leukocyte Esterase 3+ A, Urine RBC Tntc, Urine WBC Tntc A, Ur Squamous Epith Cells None, Amorphous Sediment Cancelled, Urine Bacteria 4+ A, Urine Mucus Cancelled Orders (Tests/Meds): ED MEDICATIONS Discontinued Medications Generic Name Dose Route Start Last Admin Trade Name Freq PRN Reason Stop Dose Admin Levofloxacin 500 mg 04/20/24 16:17 04/20/24 16:26 Levofloxacin 500mg Tab PO 04/20/24 16:18 500 mg ONCE ONE Administration ORDERS Category Date Time Status Urinalysis (cathed specimen) Stat Lab 04/20/24 15:22 Completed Urine Culture(cathed specimen) Stat Micro 04/20/24 15:22 Received Medical Decision Narrative: Adrian David: I was consulted by the GINGER, and we discussed the complexity of the problems being addressed. I approved the treatment and management plan for this patient's care in the emergency department, thus performing a substantive portion of the medical decision making. Patient has nitrate positive on the dip with blood in his urine. He is well-appearing without tachycardia or fever, has no evidence of obstructive uropathy on bladder scan and has a functioning catheter. Given catheter associated urinary tract infection will require levofloxacin. Critical Care <Adrian David MD - Last Filed: 04/20/24 16:00> Critical Care Time Critical Care Time: No
[2024-04-20 15:53] LABS: Appearance,Urine/Cath CLEAR (Clear); Blood, Urine/Cath 3+ (Negative); Color,Urine/Cath YELLOW (Yellow); Glucose,Urine/Cath (UA) 1+ (Negative); Ketones,Urine/Cath 1+ (Negative); Leukocyte Esterase,Cath 3+ (Negative); Nitrate,Cath POSITIVE (Negative); PH,Urine/Cath 6.5 (5.0-8.5); Protein,Urine/Cath 3+ (Negative)
[2024-04-20 15:56] LABS: Bilirubin,Cath 3+ (Negative)
[2024-04-20 15:59] LABS: Bacteria,Urine/Cath 4+ /lpf; RBC,Urine/Cath TNTC # /hpf (0-3); WBC,Urine/Cath TNTC #/hpf (0-3)
--- NOTE | 2024-04-20 16:09 | PC.NURSE ---
DAUGHTER HAS BEEN NOTIFIED OF PENDING DISCHARGE
[2024-04-20] MEDS: levoFLOXacin 500MG TAB 500 MG PO (16:26)
--- NOTE | 2024-04-22 13:26 | PC.NURSE ---
PT aware of new prescription at clinic pharmacy for urine culture per
== END 2024-04-20 17:19 | disposition home or self-care (01) ==
PROVIDERS: Nurse Practitioner; Emergency Provider Emergency Medicine
DX: T83.511A Infection and inflammatory reaction due to indwelling urethral catheter, initial encounter (principal); R31.9 Hematuria, unspecified
CPT/HCPCS: 51702; 81001; 87086; 87088; 87186; 99283

== ENCOUNTER 2025-05-19 11:00 | Outpatient (CLI) | payer MEDICARE, OTHER, SELFPAY ==
--- OUTSIDE RECORDS SUMMARY | 2025-05-15 09:40 | XMS_ITS | Encounter Summary ---
Author Organization [facility] Address [address] [place] [address] Care Team Providers Care Tree Scout Name Role Phone Paulo Brody DO Primary Care Provider [phone] Reason for Referral * Consultation (Routine) - Authorized Specialty Diagnoses / Procedures Referred By Mo zamorano Referred To Contact Diagnoses Type 2 diabetes mellitus with diabetic neuropathy, with long-term current use of insulin Elayne Campbell APRN [address] [address] Phone: tel: fax: Referral ID Status Reason Start Date Expiration Date V isits Requested Visits Authorized [id number] Authorized 05/15/2025 11/14/2026 1 1 Reason for Visit * Consultation (Routine) - Closed Specialty Diagnoses / Procedures Referred By Mo zamorano Referred To Contact Diagnoses Type 2 diabetes mellitus with diabetic neuropathy, with long-term current use of insulin Elayne Campbell APRN 8 [facility] [address] [place] [address] Phone: tel: fax: Referral ID Status Reason Start Date Expiration Date Visits Re quested Visits Authorized [id number] Closed 12/19/2024 06/20/2026 1 1 Encounter Details Date Type Department Care Team (Late st Contact Info) Description 05/15/2025 9:40 AM EST Office Visit [facility] Endocrinology [address] [place] [address] Elayne Campbell, HEAD BATCHER [address] [place] [address] Type 2 diabetes mellitus with [...] Patient confirms they are physically located in [place]? Yes If the patient is not physically located in [place], the provider has confirmed with [employer] [...] blood sugar records: using dexcom 7 with bronc breaker therefore unable to view over , reports [...] events: denies recent illness, hospital visits -seeing ammunition components inspector next week -history of chronic UTIs (denies [...] care. Electronically signed by: Elayne Campbell APRN [facility] ENDOCRINOLOGY [address] [place]. [address] PHONE [phone] FAX: [phone] documented in this encounter Plan of Treatment Upcoming Encounters Date Type Department Care Team (Late st Contact Info) Description 08/28/2025 9:40 AM EDT Office Visit [facility] Endocrinology [address] [place] [address] Elayne Campbell APRN [address] [place] [address] Scheduled Orders Name Type Priority Associated [...] Associated Diagnoses Orde r Schedule Follow Up [facility] Outpatient Referral Routine Type 2 diabetes mellitus [...] documented as of this encounter Care Teams Tree Scout Relationship Specialty Start Date End Date Paulo Brody DO [address] [place] [address] PCP - General 08/01/23 documented as of this encounter
--- OUTSIDE RECORDS SUMMARY | 2025-05-20 12:39 | XMS_ITS | Encounter Summary ---
Author Organization Healthcare Address [address] [place] [address] Care Team Providers Care [employer] Home Economics Teacher Name Role Phone Paulo Brody Primary Care Provider [phone] Encounter Details Date Type Department Care Team (Late st Contact Info) Description 05/15/2025 Telephone [facility] Endocrinology [address] [place] [address] Elayne Campbell, PROCUREMENT INSPECTOR [address] [facility] [address] [place] [address] Social History Tobacco Use Types Packs/Day Years Used Date Smoking Tobacco: Former Cigarettes 0 Q uit: 1991 Smokeless Tobacco: Former Snuff Quit: 2012 Alcohol Use Standard Drinks/Week Comments No 0 [...] as of this encounter Miscellaneous Notes * Telephone Encounter - Sharon Guerrero - 05/15/2025 2:10 PM EST Mailed lab orders to patient. RP * Telephone Encounter - Sharon Guerrero - 05/15/2025 2:10 PM EST ----- Message from Elayne Campbell APRN sent at 05/15/2025 10:04 AM EST ----- Regarding: mail labs Please mail patient outside lab order documented in this encounter Plan of Treatment Upcoming Encounters Date Type Department Care Team (Late st Contact Info) Description 08/28/2025 9:40 AM EDT Office Visit [facility] Endocrinology [address] [place] [address] Elayne Campbell APRN [address] [facility] [address] [place] [address] documented as of this encounter Visit Diagnoses Not on filedocumented in this encounter Additional Health Concerns Assessment Noted Time A fall risk assessment has been complete d for the patient 11/27/2023 3:20 PM EDT A Body Mass Index follow-up plan has been documented for the patient 05/15/2025 10:09 AM EST documented as of this encounter Care Teams [employer] Home Economics Teacher Relationship Specialty Start Date End Date Paulo Brody DO [address] [place] [address] PCP - General 08/01/23 documented as of this encounter
--- OUTSIDE RECORDS SUMMARY | 2025-05-20 12:39 | XMS_ITS | Encounter Summary ---
Author Organization Healthcare Address [address] [place] [address] Care Team Providers Care Geometry Teacher Name Role Phone Paulo Brody Primary Care Provider [phone] Encounter Details Date Type Department Care Team (Late st Contact Info) Description 03/24/2025 Orders Only [facility] Endocrinology [address] [place] [address] Elayne Campbell S, CREDIT AUTHORIZER [address] [facility] [address] [place] [address] Social History Tobacco Use Types [...] on file documented as of this encounter Plan of Treatment Upcoming Encounters Date Type Department Care Team (Late st Contact Info) Description 08/28/2025 9:40 AM EDT [facility] [address] [place] [address] Elayne Campbell, CREDIT AUTHORIZER [address] [facility] [address] [place] [address] documented as of this encounter Visit Diagnoses Not on filedocumented in this encounter Additional Health Concerns Assessment Noted Time A fall risk assessment has been complete d for the patient 11/27/2023 3:20 PM EDT A Body Mass Index follow-up plan has been documented for the patient 12/19/2024 10:39 AM EDT documented as of this encounter Care Teams Geometry Teacher Relationship Specialty Start Date End Date Paulo Brody DO [address] [place] [address] PCP - General 08/01/23 documented as of this encounter
--- OUTSIDE RECORDS SUMMARY | 2025-05-20 12:39 | XMS_ITS | Clinical Summary ---
Author Organization [employer] ([place], [place], [place], [place], [place]) Address [address] [place] [address] Care Team Providers Care Electrical Development Engineer Name Role Phone Unavailable Primary Care Provider Unavailabl e Allergies Active Allergy Reactions Criticality Noted Date Comments Gabapentin Anaphylaxis,Other (See Comments) High Medications ARIPiprazole (ABILIFY) 5 MG tablet Take 1 tablet (5 mg total) by mouth daily. 08/20/19 24 Active atorvastatin (LIPITOR) 40 MG tablet Take 1 tablet (40 mg total) by mouth nightly. 06/23/19 24 Active escitalopram oxalate (LEXAPRO) 10 MG tablet Take 1 tablet (10 mg total) by mouth daily. 07/20/19 24 Active furosemide (LASIX) 40 MG tablet Take 1 tablet (40 mg total) by mouth daily. 03/29/20 23 Active isosorbide mononitrate (IMDUR) 60 MG 24 hr tablet Take 1 tablet (60 mg total) by mouth daily. 07/20/19 24 Active levothyroxine (SYNTHROID, LEVOTHROID) 175 MCG tablet Take 1 tablet (175 mcg total) by mouth Every morning on an empty stomach. 08/21/19 24 Active metoprolol succinate (TOPROL-XL) 25 MG 24 hr tablet Take 1 tablet (25 mg total) by mouth daily. 07/19/19 24 Active montelukast (SINGULAIR) 10 mg tablet Take 1 tablet (10 mg total) by mouth nightly. 04/11/20 23 Active oxybutynin (DITROPAN XL) 15 MG 24 hr tablet Take 1 tablet (15 mg total) by mouth daily. 07/18/19 Active oxyCODONE (OXY-IR) 10 mg tablet Take 1 tablet (10 mg total) by mouth every 6 (six) hours as needed for Pain. 09/10/19 Active pantoprazole (PROTONIX) 40 MG tablet Take 1 tablet (40 mg total) by mouth daily. 08/20/19 Active potassium chloride SA (K-DUR,KLOR-CON -M) 20 MEQ tablet Take 1 tablet (20 mEq total) by mouth daily. Active pregabalin (LYRICA) 100 MG capsule Take 1 capsule (100 mg total) by mouth 3 (three) times daily. Max Daily Amount: 300 mg 09/10/19 Active ranolazine (RANEXA) 500 MG 12 hr tablet Take 1 tablet (500 mg total) by mouth 2 (two) times daily. 08/20/19 Active spironolactone (ALDACTONE) 25 MG tablet Take 1 tablet (25 mg total) by mouth 2 (two) times daily. 07/02/19 24 Active tamsulosin (FLOMAX) 0.4 mg Cap 24 hr capsule Take 2 capsules (0.8 mg total) by mouth nightly. 03/30/20 Active topiramate (TOPAMAX) 50 MG tablet Take 1 tablet (50 mg total) by mouth daily as needed (for Migraine Headache). 04/05/20 Active diazePAM (VALIUM) 5 MG tablet Take 1 tablet (5 mg total) by mouth 3 (three) times daily. Max Daily Amount: 15 mg Active semaglutide (Ozempic) 2 mg/dose (8 mg/3 mL) PnIj Inject 2 mg subcutaneously once a week. Active insulin aspart U-100 (NovoLOG) 100 unit/mL (3 mL) InPn Inject subcutaneously 3 (three) times daily before meals Sliding Scale Insulin: use as directed. Active allopurinoL (ZYLOPRIM) 300 MG tablet Take 1 tablet (300 mg total) by mouth daily. Active lidocaine (PF) 10 mg/mL (1 %) Soln 3.2 mL with ertapenem 1 gram SolR 1,000 mg injection Inject 1,000 mg intramuscularly daily. 1 each 09/28/19 24 Active aspirin 81 MG EC tablet Hold for 7 days, then restart. 0 09/27/19 Active rivaroxaban (XARELTO) 15 mg tablet Hold for for 7 Days, then restart. 0 09/27/19 24 Active Active Problems Problem Noted Date Diagnosed Date Pain 09/22/2023 Hemorrhagic cystitis 09/22/2023 Encounters Date Type Department Care Team Description 05/14/2025 Lab Requisition [facility] [address] [place] [address] Clifton Parr MD Urinary tract infection, site not specified 05/14/2025 Travel 04/03/2025 Lab Requisition [facility] [address] [place] [address] Clifton Parr MD from Last 3 Months Social History Tobacco Use Types Packs/Day Years Used Date Smoking Tobacco: Never Smokeless Tobacco: Never Tobacco Cessation:Counseling Given: Not Answered Alcohol Use Standard Drinks/Week Comments Never 0 (1 standard drink = 0.6 oz pur e alcohol) Utilities Answer Date Recorded In the past 12 months, has t he [employer], gas, oil, or water [employer] threatened to shut off services in your home? No 09/22/2023 Food Insecurity Answer Date Recorded Within the past 12 months, y ou worried that your food would run out before you got money to buy more. Never true 09/22/2023 Within the past 12 months, t he food you bought just didn't last and you didn't have money to get more. Never true 09/22/2023 Transportation Needs Answer Date Record ed In the past 12 months, has l ack of reliable transportation kept you from medical appointments, meetings, work or from getting things needed for daily living? No 09/22/2023 Financial Resource Strain Answer Date R ecorded How hard is it for you to pa y for the very basics like food, housing, medical care, and heating? Would you say it is: Not hard at all 09/22/2023 Employment Answer Date Recorded Do you want help finding or keeping work or a job? I do not need or want help 09/22/2023 Family and Community Support Answer Kevin e Recorded If for any reason you need h elp with day-to-day activities such as bathing, preparing meals, shopping, managing finances, etc., do you get the help you need? I could use a little more help 09/22/2023 Feeling Lonely or Isolated 0 09/21 Educational Attainment Answer Date Adán rded Do you speak a language other than Fijian at ho me? No 09/22/2023 Do you want help with school or training? For example, starting or completing job training or getting a high school diploma, GED or equivalent. No 09/22/2023 Physical Activity Answer Date Recorded Number of minutes of exercise per week 0 09/22/2023 Substance Use Answer Date Recorded How many times in the past y ear have you used prescription drugs for non-medical reasons? Never 09/22/2023 How many times in the past year have you used il legal drugs? Never 09/22/2023 Sex and Gender Information Value Date Recorded Sex Assigned at Not on file Legal Sex Male 3:59 PM CDT Gender Identity Not on file Sexual Orientation Not on file Last Filed Vital Signs Vital Sign Reading Time Taken Comments Blood Pressure 113/68 09/27/2023 9:20 AM EDT Pulse 83 09/27/2023 9:20 AM EDT Temperature 36.3 C (97.3 F) 09/27/2023 4:18 AM EDT Respiratory Rate 18 09/26/2023 7:10 PM EDT Oxygen Saturation 98% 09/27/2023 9:20 AM EDT Inhaled Oxygen Concentration - - Weight 85.5 kg (188 lb 7.9 oz) 09/26/2023 4:00 A M EDT Height 177.8 cm (5' 10 ) 09/22/2023 9:08 PM EDT Body Mass Index 27.05 09/22/2023 9:08 PM EDT Plan of Treatment Health Maintenance Due Date Last Done Comments CT Colonography 1957 Colonoscopy 1957 Colorectal Cancer Screening 1957 FOBT/FIT 1957 Fit-DNA (Cologuard) 1957 Sigmoidoscopy 1957 Depression Screening (12+) 1969 Hepatitis C Screening 1975 DTAP/TDAP/TD VACCINES (1 - Tdap) 01/25/1976 Shingles Vaccine (Zoster) (1 of 2) 2007 Respiratory Syncytial Virus (RSV) Adult or (1 - Risk 60-74 years 1-dose series) 2017 Pneumococcal 50+ years (2 of 2 - PPSV23, PCV20, or PCV21) 08/02/2018 06/07/2018 Medicare Initial AWV [id number] 01/03/2023 Falls Risk Screening 06/04/2024 Tobacco Cessation Counseling and Screening (12+) 09/21/2024 09/22/2023 COVID-19 VACCINE (3 - season) 2025, 09/30/2020 Influenza Vaccine (#1) 2025 , 03/14/2022, 04/10/2017 Procedures Procedure Name Priority Date/Time Associated Diagnosis Comments URINALYSIS MICROSCOPIC Routine 05/14/2025 2:30 AM EST Urinary tract infection, site not specified URINALYSIS, REFLEX MICROSCOPIC AND CULTURE IF INDICATED Routine 05/14/2025 2:30 AM EST Urinary tract infection, site not specified WOUND CULTURE + GRAM STAIN Routine 04/03/2025 8:30 AM EDT STOOL CULTURE Routine 04/03/2025 8:30 AM EDT C DIFFICLE Routine 04/03/2025 8:30 AM EDT from Last 3 Months Results * (ABNORMAL) Urinalysis, Reflex Microscopic and Culture If Indicated (05/14/2025 2:30 AM EST) Color, UA Straw 05/14/2025 4:31 PM EST [facility] Clarity, UA Clear 05/14/2025 4:31 PM EST [facility] Specific [place], UA <=1.005 1.002 - 1.030 05/14/2025 4:31 PM EST [facility] pH, UA 7.0 5.0 - 9.0 05/14/2025 4:31 PM EST [facility] Leukocytes, UA 3+(A) Negative 05/14/2025 4:31 PM EST [facility] Nitrite, UA Negative Negative 05/14/2025 4:31 PM EST [facility] Protein, UA Negative Negative 05/14/2025 4:31 PM EST [facility] Glucose, UA Negative Negative 05/14/2025 4:31 PM EST [facility] Ketones, UA Negative Negative 05/14/2025 4:31 PM EST [facility] Bilirubin, UA Negative Negative 05/14/2025 4:31 PM EST [facility] Blood, UA Negative Negative 05/14/2025 4:31 PM EST [facility] Urobilinogen, UA 0.2 mg/dL Normal 05/14/2025 4:31 PM EST [facility] Specimen Source random 05/14/2025 4:31 PM EST [facility] Urine 05/14/2025 2:30 AM EST 05/14/2025 4:24 PM EST us Clifton Parr MD URINE ORDERABLES Final Resul t [facility] [address] [place] [address] * (ABNORMAL) Urinalysis Microscopic Only (05/14/2025 2:30 AM EST) WBC, UA 5-10(A) None Seen, Occasional , 0-5 /HPF 05/14/2025 4:51 PM EST [facility] RBC, UA 0-5(A) None Seen, Rare /HPF 05/14/2025 4:51 PM EST [facility] Bacteria, UA 2+(A) None Seen 05/14/2025 4:51 PM EST [facility] SQUAMOUS EPITHELIAL 0-5(A) None Seen, Rare /HPF 05/14/2025 4:51 PM EST [facility] Urine 05/14/2025 2:30 AM EST 05/14/2025 4:24 PM EST us Clifton Parr MD URINE ORDERABLES Final Resul t [facility] [address] [place] [address], [facility] [phone] * Stool Culture (04/03/2025 8:30 AM EDT) Result No Salmonella, Shigella, Campylobacter , E.coli: 0157 screen negative. Normal enteric asaf isolated 04/06/2025 7:55 AM EST [facility] Feces FECES / Unknown 04/03/2025 8 :30 AM EDT 04/03/2025 11:54 AM EDT us Clifton Parr MD MICROBIOLOGY - GENERAL ORDER NANI Final Result Performing Organization Address City/[facility]/ZIP Co de Phone Number [facility] [address] [place] [address], [facility] [phone] * C Difficle (04/03/2025 8:30 AM EDT) CDIFF RESULT Negative Negative 04/03/2025 3:43 PM EDT [facility] C. Difficile Ribotype 027 Presumptive Negative Presumptive Negative 04/03/2025 3:43 PM EDT [facility] Stool 04/03/2025 8:30 AM EDT 04/03/2025 11:54 AM EDT Narrative [facility] - 04/03/2025 3:43 PM EDT [employer] follows a multistep algorithm for C. difficile testing as guided by the CDC, NHSN and IDSA best practices. In our practice a PCR toxin is first performed. Any negative result completes the testing protocol. Any positive result will refer to a GDH/EIA test kit to determine if there is an active infection (Toxin positive) vs Colonization. Formed stool specimens will be rejected, a patient that has had a positive Cdiff result within the past 30 days will be cancelled, patient that has had a negative Cdiff result within the past 7 days will be cancelled based on laboratory policies. For exceptions to these policies, phone the laboratory. If a Cdiff order is placed on a patient and has not been collected within 24 hours, the test will be cancelled per protocol. This test used automated real-time polymerase chain reaction for the detection of toxin B gene sequence and for presumptive identification of 027/NAP1/B1 strains of toxogenic Clostridium difficile from unformed (liquid or soft) stool specimens. This assay is intended to aid in the diagnosis of Clostridium difficile infection (CDI). Detection of 027/NAP1/B1 strains of C. difficile is presumptive and solely for epidemiological purposes and is not intended to guide or monitor treatment of C. difficile infections. Clifton Parr MD BODY FLUIDS AND STOOLS ORDER NANI Final Result [facility] [address] [phone] * (ABNORMAL) Wound Culture + Gram Stain (04/03/2025 8:30 AM EDT) Result Heavy Growth Staphylococcus aureus(A) 04/07/2025 7:36 AM [facility] Result Moderate Growth Klebsiella aerogenes(A) 04/07/2025 7:36 AM [facility] Result Heavy Growth Coagulase negative Staphylococcus(A) 04/07/2025 7:36 AM [facility] Result Heavy Growth Corynebacterium species(A) 04/07/2025 7:36 AM [facility] Gram Stain Result Few WBCs 04/07/2025 7:36 AM [facility] Gram Stain Result Many gram positive cocci in pairs and clusters 04/07/2025 7:36 AM [facility] Gram Stain Result Rare gram positive rods 04/07/2025 7:36 AM [facility] Wound HEEL STRUCTURE / Unknown 04/03/2025 8:30 AM EDT 04/03/2025 11:54 AM EDT Narrative [facility] - 04/07/2025 7:36 AM EST Mixed growth suggestive of colonization or indigenous asaf Organism Antibiotic Method Susceptibility Staphylococcus aureus Amoxicillin + Clavulanate <=4/2: Susceptible Staphylococcus aureus Ampicillin >8: Beta-Lactamase Positive Staphylococcus aureus Ampicillin + Sulbactam <=8/4: Susceptible Staphylococcus aureus Azithromycin >4: Resistant Staphylococcus aureus Cefazolin <=8: Susceptible Staphylococcus aureus Cefepime <=4: Susceptible Staphylococcus aureus Cefotaxime <=8: Susceptible Staphylococcus aureus Cefoxitin Screen <=4: Negative Staphylococcus aureus Ceftaroline <=0.5: Susceptible Staphylococcus aureus Ceftriaxone <=4: Susceptible Staphylococcus aureus Ciprofloxacin <=1: Susceptible Staphylococcus aureus Clindamycin 0.5: Susceptible Staphylococcus aureus Daptomycin <=0.5: Susceptible Staphylococcus aureus Erythromycin >4: Resistant Staphylococcus aureus Gentamicin <=4: Susceptible Staphylococcus aureus Imipenem <=4: Susceptible Staphylococcus aureus Inducible Clindamycin <=4/0.5: Negative Staphylococcus aureus Levofloxacin <=1: Susceptible Staphylococcus aureus Meropenem <=2: Susceptible Staphylococcus aureus Oxacillin 0.5: Susceptible Staphylococcus aureus Penicillin >2: Beta-Lactamase Positive Staphylococcus aureus Piperacillin + Tazobactam <=8: Susceptible Staphylococcus aureus Rifampin <=1: Susceptible Staphylococcus aureus Tetracycline <=4: Susceptible Staphylococcus aureus Trimethoprim + Sulfamethoxazole <=0.5/9.5: Susceptible Staphylococcus aureus Vancomycin 1: Susceptible Klebsiella aerogenes Amikacin <=16: Susceptible Klebsiella aerogenes Amoxicillin + Clavulanate >16/8: Resistant Klebsiella aerogenes Ampicillin >16: Resistant Klebsiella aerogenes Ampicillin + Sulbactam 8/4: Resistant Klebsiella aerogenes Aztreonam <=4: Susceptible Klebsiella aerogenes Cefazolin >16: Resistant Klebsiella aerogenes Cefepime <=2: Susceptible Klebsiella aerogenes Cefotaxime <=2: Susceptible Klebsiella aerogenes Cefoxitin >16: Resistant Klebsiella aerogenes Ceftazidime <=1: Susceptible Klebsiella aerogenes Ceftriaxone <=1: Susceptible Klebsiella aerogenes Cefuroxime >16: Resistant Klebsiella aerogenes Ciprofloxacin <=0.25: Susceptible Klebsiella aerogenes Ertapenem <=0.5: Susceptible Klebsiella aerogenes Gentamicin <=2: Susceptible Klebsiella aerogenes Imipenem 2: Intermediate Klebsiella aerogenes Levofloxacin <=0.5: Susceptible Klebsiella aerogenes Meropenem <=1: Susceptible Klebsiella aerogenes Minocycline <=4: Susceptible Klebsiella aerogenes Moxifloxacin <=2: Susceptible Klebsiella aerogenes Piperacillin + Tazobactam <=8: Susceptible Klebsiella aerogenes Tetracycline <=4: Susceptible Klebsiella aerogenes Tigecycline <=2: Susceptible Klebsiella aerogenes Tobramycin <=2: Susceptible Klebsiella aerogenes Trimethoprim + Sulfamethoxazole <=0.5/9.5: Susceptible Clifton Parr MD MICROBIOLOGY - GENERAL ORDER NANI Final Result [facility] [address] [place] [address], [facility] [phone] [facility] [address] [place] [address], [facility] [phone] from Last 3 Months Additional Health Concerns Infection Onset Date Last Indicated MDR E.coli (C) Comment:ESBL/MDR 09/26/2023 09/26/2023 Insurance [facility] MEDIC[facility] PART A B Advance Directives For more information, please contact: [phone] Documents on File Type Date Recorded 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
--- OUTSIDE RECORDS SUMMARY | 2025-05-20 12:39 | XMS_ITS | Encounter Summary ---
Author Organization [employer] ([place], [place], [place], [place], [place]) Address [address] [place] [address] Care Team Providers Care Hospital Food Service Worker Name Role Phone Unavailable Primary Care Provider Unavailabl e Encounter Details Date Type Department Care Team (Late st Contact Info) Description 12/31/2024 Lab Requisition [facility] [address] [place] [phone] Social History Tobacco Use Types Packs/Day Years Used Date Smoking Tobacco: Never Smokeless Tobacco: Never Alcohol Use Standard Drinks/Week Comments Never 0 (1 standard drink = 0.6 oz pur e alcohol) Utilities Answer Date Recorded In the past 12 months, has t he electric, gas, oil, or water company threatened to shut off services in your [...] Do you speak a language other than Guatemalan at [facility]? No 09/22/2023 Do you want help with [...] as of this encounter Plan of Treatment Not on file documented as of this encounter Visit Diagnoses Not on filedocumented in this encounter Additional Health Concerns Infection Onset Date Last Indicated Resolved Time MDR E.coli (C) Comment:ESBL/MDR 09/26/2023 09/26/2023 documented as of this encounter
--- OUTSIDE RECORDS SUMMARY | 2025-05-20 12:39 | XMS_ITS | Encounter Summary ---
Author Organization Healthcare Address [address] [place] [address] Care Team Providers Care Brazing Furnace Operator Name Role Phone Paulo Brody Primary Care Provider [phone] Encounter Details Date Type Department Care Team (Late st Contact Info) Description [facility] [address] [place] [phone] Pierce Mckeon Social History Tobacco Use Types Packs/Day Years [...] encounter Miscellaneous Notes * Telephone Encounter - Pierce Mckeon C - 03/24/2025 12:59 PM EDT Rx refill documented in this encounter Plan of Treatment Upcoming Encounters Date Type Department Care Team (Late st Contact Info) Description 08/28/2025 9:40 AM EDT [facility] [address] [place] [phone] Elayne Campbell, UNDERWRITING TECHNICIAN [address] [facility] [address] [place] [address] documented as of this encounter Visit Diagnoses Not on filedocumented in this encounter Additional Health Concerns Assessment Noted Time A fall risk assessment has been complete d for the patient 11/27/2023 3:20 PM EDT A Body Mass Index follow-up plan has been documented for the patient 12/19/2024 10:39 AM EDT documented as of this encounter Care Teams Brazing Furnace Operator Relationship Specialty Start Date End Date Paulo Brody DO [address] [place] [address] PCP - General 08/01/23 documented as of this encounter
--- OUTSIDE RECORDS SUMMARY | 2025-05-20 12:40 | XMS_ITS | Encounter Summary ---
Author Organization [facility] ([place], [place], [place], [place], [place]) Address [address] [place] [address] Care Team Providers Care Trading Specialist Name Role Phone Unavailable Primary Care Provider Unavailabl e Encounter Details Date Type Department Care Team (Late st Contact Info) Description 04/03/2025 Lab Requisition [facility] [address] [place] [phone] Clifton Parr MD [address] [place] [address] Social History Tobacco Use Types Packs/Day Years [...] Do you speak a language other than [place] at [facility]? No 09/22/2023 Do you want help with [...] on file documented as of this encounter Procedures Procedure Name Priority Date/Time Associated Diagnosis Comments STOOL CULTURE Routine 04/03/2025 8:30 AM EDT C DIFFICLE Routine 04/03/2025 8:30 AM EDT WOUND CULTURE + GRAM STAIN Routine 04/03/2025 8:30 AM EDT documented in this encounter Results * (ABNORMAL) Wound Culture + Gram Stain (04/03/2025 8:30 AM EDT) Result Heavy Growth Staphylococcus aureus(A) 04/07/2025 7:36 AM [facility] Result Moderate Growth Klebsiella aerogenes(A) 04/07/2025 7:36 AM [facility] Result Heavy Growth Coagulase negative Staphylococcus(A) 04/07/2025 7:36 AM EST [facility] Result Heavy Growth Corynebacterium species(A) 04/07/2025 7:36 AM EST [facility] Gram Stain Result Few WBCs 04/07/2025 7:36 AM EST [facility] Gram Stain Result Many gram positive cocci in pairs and clusters 04/07/2025 7:36 AM EST [facility] Gram Stain Result Rare gram positive rods 04/07/2025 7:36 AM EST [facility] Wound HEEL STRUCTURE / Unknown 04/03/2025 8:30 AM EDT 04/03/2025 11:54 AM EDT [facility] - 04/07/2025 7:36 AM EST Mixed [...] MICROBIOLOGY - GENERAL ORDER NANI Final Result [facility] [address] [place] [address] [facility] [address] [place] [address] * Stool Culture (04/03/2025 8:30 AM EDT) Result No Salmonella, Shigella, Campylobacter , E.coli: 0157 screen negative. Normal enteric asaf isolated 04/06/2025 7:55 AM EST [facility] Feces FECES / Unknown 04/03/2025 8 :30 AM EDT 04/03/2025 11:54 AM EDT Clifton Parr MD MICROBIOLOGY - GENERAL ORDER NANI Final Result Performing Organization Address [facility]/ZIP Co de Phone Number [facility] [address] [phone] * C Difficle (04/03/2025 8:30 AM EDT) CDIFF RESULT Negative Negative 04/03/2025 3:43 PM EDT [facility] C. Difficile Ribotype 027 Presumptive Negative Presumptive Negative 04/03/2025 3:43 PM EDT [facility] Stool 04/03/2025 8:30 AM EDT 04/03/2025 11:54 AM EDT Narrative [facility] - 04/03/2025 3:43 PM EDT [facility] [...] FLUIDS AND STOOLS ORDER NANI Final Result [facility] [address] [phone] documented in this encounter Visit Diagnoses Not on filedocumented in this encounter Additional Health Concerns Infection Onset Date Last Indicated Resolved Time MDR E.coli (C) Comment:ESBL/MDR 09/26/2023 09/26/2023 documented as of this encounter
--- OUTSIDE RECORDS SUMMARY | 2025-05-20 12:40 | XMS_ITS | Encounter Summary ---
Author Organization [employer] ([place], [place], [place], [place], [place]) Address [address] [place] [address] Care Team Providers Care Credit Review Manager Name Role Phone Unavailable Primary Care Provider Unavailabl e Encounter Details Date Type Department Care Team (Latest Contact Info) Description 05/14/2025 Travel Social History Tobacco Use Types Packs/Day Years [...] Do you speak a language other than [place] at [facility]? No 09/22/2023 Do you want help with [...]
--- OUTSIDE RECORDS SUMMARY | 2025-05-20 12:40 | XMS_ITS | Encounter Summary ---
Author Organization [employer] ([place], [place], [place], [place], [place]) Address [address] [place] [address] Care Team Providers Care Manager Staffing Name Role Phone Unavailable Primary Care Provider Unavailabl e Encounter Details Date Type Department Care Team (Late st Contact Info) Description 05/14/2025 Lab Requisition [facility] [address] [place] [phone] Clifton Parr MD [address] [place] [address] Urinary tract infection, site not specified Social History Tobacco Use Types Packs/Day Years [...] Do you speak a language other than Chinese at [facility]? No 09/22/2023 Do you want help with [...] Procedure Name Priority Date/Time Associated Diagnosis Comments URINALYSIS, REFLEX MICROSCOPIC AND CULTURE IF INDICATED Routine 05/14/2025 2:30 AM EST Urinary tract infection, site not specified URINALYSIS MICROSCOPIC Routine 05/14/2025 2:30 AM EST Urinary tract infection, site not specified documented in this encounter Results * (ABNORMAL) Urinalysis Microscopic Only (05/14/2025 2:30 AM EST) WBC, UA 5-10(A) None Seen, Occasional , 0-5 /HPF 05/14/2025 4:51 PM EST [facility] RBC, UA 0-5(A) None Seen, Rare /HPF 05/14/2025 4:51 PM EST [facility] Bacteria, UA 2+(A) None Seen 05/14/2025 4:51 PM EST [facility] SQUAMOUS EPITHELIAL 0-5(A) None Seen, Rare /HPF 05/14/2025 4:51 PM EST [facility] Urine 05/14/2025 2:30 AM EST 05/14/2025 4:24 PM EST us Clifton Parr MD URINE ORDERABLES Final Resul t [facility] [address] [phone] * (ABNORMAL) Urinalysis, Reflex Microscopic and Culture If Indicated (05/14/2025 2:30 AM EST) Color, UA Straw 05/14/2025 4:31 PM [facility] Clarity, UA Clear 05/14/2025 4:31 PM [facility] Specific Miracle, UA <=1.005 1.002 - 1.030 05/14/2025 4:31 PM EST [facility] pH, UA 7.0 5.0 - 9.0 05/14/2025 4:31 PM [facility] Leukocytes, UA 3+(A) Negative 05/14/2025 4:31 PM EST [facility] Nitrite, UA Negative Negative 05/14/2025 4:31 PM EST [facility] Protein, UA Negative Negative 05/14/2025 4:31 PM [facility] Glucose, UA Negative Negative 05/14/2025 4:31 PM EST [facility] Ketones, UA Negative Negative 05/14/2025 4:31 PM [facility] Bilirubin, UA Negative Negative 05/14/2025 4:31 PM EST [facility] Blood, UA Negative Negative 05/14/2025 4:31 PM EST [facility] Urobilinogen, UA 0.2 mg/dL Normal 05/14/2025 4:31 PM EST [facility] Specimen Source random 05/14/2025 4:31 PM EST [facility] Urine 05/14/2025 2:30 AM EST 05/14/2025 4:24 PM EST us Clifton Parr MD URINE ORDERABLES Final Resul t [facility] [address] [place] [address] documented in this encounter Visit Diagnoses Diagnosis Urinary tract infection, site not specified documented in this encounter Additional Health Concerns Infection Onset Date Last Indicated Resolved Time MDR E.coli (C) Comment:ESBL/MDR 09/26/2023 09/26/2023 documented as of this encounter
--- OUTSIDE RECORDS SUMMARY | 2025-05-20 12:40 | XMS_ITS | Clinical Summary ---
Author Organization [facility] Address [address] [place] [address] Care Team Providers Care Oracle Technical Architect Name Role Phone System, Provider Not In Primary Care Provider Un available Source Comments This information has been disclosed to you from confidential records protectedfrom disclosure by state law. You shall make no further disclosure of thisinformation without the specific, written, and informed release of theindividual to whom it pertains, or as otherwise permitted by law. A generalauthorization for the release of medical or other information is not sufficientfor the purposes of therelease of HIV test results or diagnoses. [id number] Allergies No known active allergies Medications pregabalin (LYRICA) 100 MG capsule Take 1 capsule (100 mg total) by mouth 3 times a day. Active oxyCODONE (ROXICODONE) 5 MG immediate release tablet Take 2 tablets (10 mg total) by mouth every 6 hours. Active insulin glargine (LANTUS) 100 unit/mL injection Inject 80 Units subcutaneously daily. Active allopurinoL (ZYLOPRIM) 300 MG tablet Take 1 tablet (300 mg total) by mouth daily. 07/04/19 22 Active ARIPiprazole (ABILIFY) 5 MG tablet Take 1 tablet (5 mg total) by mouth daily. 06/12/19 23 Active aspirin 81 MG EC tablet Take 1 tablet (81 mg total) by mouth daily. Active atorvastatin (LIPITOR) 40 MG tablet Take 1 tablet (40 mg total) by mouth at bedtime. 07/25/19 23 Active buPROPion SR (WELLBUTRIN SR) 150 MG tablet Take 1 tablet (150 mg total) by mouth. Active cetirizine (ZYRTEC) 10 MG tablet Take 1 tablet (10 mg total) by mouth daily. 03/15/20 Active cholecalciferol , vitamin D3, 1000 units tablet Take 1 tablet (1,000 Units total) by mouth daily. 11/20/19 Active colchicine 0.6 mg tablet Take 1 tablet (0.6 mg total) by mouth daily. 07/19/19 Active diazePAM (VALIUM) 10 MG tablet Take 1 tablet (10 mg total) by mouth 2 times a day as needed. Active diltiazem (CARDIZEM SR) 120 MG 12 hr capsule Take 1 capsule (120 mg total) by mouth daily. Active doxazosin (CARDURA) 2 MG tablet Take 1 tablet (2 mg total) by mouth at bedtime. 09/16/19 22 Active escitalopram oxalate (LEXAPRO) 10 MG tablet Take 1 tablet (10 mg total) by mouth daily. 07/15/19 23 Active ADVAIR DISKUS 100-50 mcg/dose diskus inhaler Inhale 1 puff into the lungs 2 times a day. 12/28/19 22 Active furosemide (LASIX) 40 MG tablet Take 1 tablet (40 mg total) by mouth daily. 08/01/19 23 Active isosorbide mononitrate (IMDUR) 60 MG 24 hr tablet Take 1 tablet (60 mg total) by mouth daily. 07/25/19 23 Active metoprolol succinate (TOPROL-XL) 25 MG 24 hr tablet Take 1 tablet (25 mg total) by mouth daily. 05/27/20 Active pantoprazole (PROTONIX) 40 MG tablet Take 1 tablet (40 mg total) by mouth daily. Active rivaroxaban (XARELTO) 15 mg Tab Take 1 tablet (15 mg total) by mouth daily. 02/24/20 Active OZEMPIC 0.25 mg or 0.5 mg(2 mg/1.5 mL) PnIj Inject 0.5 mg subcutaneously once a week. 08/09/19 23 Active spironolactone (ALDACTONE) 25 MG tablet Take 1 tablet (25 mg total) by mouth 2 times a day. 07/25/19 23 Active topiramate (TOPAMAX) 25 MG tablet Take 3 tablets (75 mg total) by mouth daily. 08/06/19 23 Active tamsulosin (FLOMAX) 0.4 mg Cap Take 1 capsule (0.4 mg total) by mouth at bedtime. 30 capsule 08/27/19 23 Active Social History Tobacco Use Types Packs/Day Years Used Date Smoking Tobacco: Never Smokeless Tobacco: Never Tobacco Cessation:Counseling Given: Not Answered Alcohol Use Standard Drinks/Week Comments Never 0 (1 standard drink = 0.6 oz pur e alcohol) Sex and Gender Information Value Date Recorded Sex Assigned at Not on file Legal Sex Male 2:56 PM EDT Gender Identity Not on file Sexual Orientation Not on file Last Filed Vital Signs Vital Sign Reading Time Taken Comments Blood Pressure 125/75 08/26/2022 6:48 PM EDT Pulse 87 08/26/2022 6:48 PM EDT Temperature 37.1 C (98.7 F) 08/25/2022 5:23 PM EDT Respiratory Rate 15 08/26/2022 6:48 PM EDT Oxygen Saturation 95% 08/26/2022 6:48 PM EDT Inhaled Oxygen Concentration 95% 08/26/2022 6 :48 PM EDT Weight 99.8 kg (220 lb) 08/25/2022 7:00 PM EDT Height 177.8 cm (5' 10 ) 08/26/2022 8:00 AM EDT Body Mass Index 31.57 08/25/2022 7:00 PM EDT Plan of Treatment Health Maintenance Due Date Last Done Comments Abnormal Colonoscopy Follow Up 1957 Diabetes Screening 1957 Hepatitis C Screening (MyChart) 1957 Lipid Panel 1957 Alcohol Misuse Screening 1975 Depression Screening 1975 Immunization: DTaP/Tdap/Td ( 1 - Tdap) 01/25/1976 Cologuard (FIT-DNA) 2002 Colonoscopy 2002 Colorectal Cancer Screening (MyChart) 2002 Stool Testing (gFOBT) 2002 Immunization: Zoster (1 of 2) 2007 Immunization: Pneumococcal ( 2 of 2 - PCV20 or PCV21) 06/07/2019 06/07/2018 Immunization: COVID-19 ( - season) 2025 04/20/2021, 09/30/2020 Immunization: Influenza (MyC john) (#1) 2025 03/14/2022, 03/27/2021, 03/22/2020, Additional history exists Immunization: RSV (Adult) (1 - 1-dose 75+ series) 01/25/2032 Insurance MEDICARE A AND B GENERIC COMMERCIAL Advance Directives For more information, please contact: [phone] Documents on File Type Date Recorded 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
--- OUTSIDE RECORDS SUMMARY | 2025-05-20 12:40 | XMS_ITS | Data Portability ---
Author Organization [facility] NERISSA Preston IRV[place] CLOSED Address [address] [place] [address] Care Team Providers Care Top Ironer Name Role Phone BLADE TOURE Primary Care Provider [phone] Assessment No assessment recorded. Plan of Treatment Reminders Order Date Submit Date Provider Last Modified By Organization Details Last Modified Time Details Appointments None record ed. Lab None record ed. Referral None record ed. Procedures None record ed. Surgeries None record ed. Imaging None record ed. Medication Orders None record ed. Patient TargetsNo targets recorded. Patient InstructionsNo instructions recorded. Reason for Referral None Reported. 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 Procedures Surgical History Date Name Laterality Status Provider Name and Address Organization Details Recorded Time 4 Cystoscopy completed ALANA KELLEY MD [address] [place] [address], [phone] 09/28/2023 08:19:55 partial repair of rotator cuff completed Charles Lezama [facility] 04/24/2023 14:57:08 Imaging Results None recorded. Procedure Notes None recorded. Medical Equipment None Reported. Allergies Allergen ID Allergen Name Allergen Category Reaction Reaction Severity Criticality Documentation Date Start Date Code Code System Note Provider Name and Address Organization Details Recorded Time 866696 morphine sulfate medicatio n Not available Not available Not available 04/28/20162014 27990 RxNorm Comme nt: Creat ed By: Hever corona;Adenike luo Date: 2014 3:03: 33 PM; Not Available [facility] 6 03:28:58 [id number] Neurontin medicatio n Not available Not available Not available 04/24/2023 74239 8 [facility] 14:54:57 Medications Name Sig Start Date Stop Date Status Note LastModified by Organization Details LastModified Time methenamin e hippurate 1 gram tablet Take 1 tablet every day by oral route. 2023 active Not Available Not Available Not Avai lable Lidoderm 5 % topical patch Daily active Frequency : daily;Med ication Descripti on: lidocaine topical; Dosage:1; Route:top ical; refills:0 ; Quantity: 1 Not Available Not Available Not Available baclofen 10 mg tablet Three times a day active Duration: 30 days;Freq uency: tid;Alt Frequency : as direct.;M edication Descripti on: baclofen; Dosage:1/ 2; Route:ora l; refills:0 ; Quantity: 90 tablet Not Available Not Available Not Available Vivotif Aletha Vaccine oral CPEC Two times a day active Duration: 30 days;Freq uency: bid;Medic ation Descripti on: diclofena c; Dosage:1; Route:ora l; refills:5 ; Quantity: 60 enteric coated tablet Not Available Not Available Not Available Valium 10 mg tablet Three times a day active Duration: 10 days;Freq uency: tid;Alt Frequency : prn;Medic ation Descripti on: diazepam; Dosage:1; Route:ora l; refills:0 ; Quantity: 30 tablet Not Available Not Available Not Available albuterol sulfate concentrat e 5 mg/mL(0.5 %) solution for nebulizati on active Medicatio n Descripti on: albuterol ; Route:inh alation; refills:0 Not Available Not Available Not Available Bactrim DS 800 mg-160 mg tablet Take 1 tablet twice a day by oral route as directed for 10 days. 2023 active ESBL Ecoli UTI while admitted to [facility] Not Available Not Available Not Available Klor-Con M20 mEq tablet,ext ended release Two times a day active Duration: 10 days;Freq uency: bid;Medic ation Descripti on: potassium chloride; Route:ora l; refills:0 ; Quantity: 60 tablet, extended release Not Available Not Available Not Available tizanidine active Medicatio n Descripti on: tizanidin e; Route:ora l; refills:0 Not Available Not Available Not Available aspirin active Medicatio n Descripti on: aspirin; refills:0 Not Available Not Available Not Available OxyContin Every twelve hours active Frequency : q12h;Medi cation Descripti on: oxycodone ; Dosage:1; Route:ora l; refills:0 ; Quantity: 60 tablet, extended release Not Available Not Available Not Available Lipitor Every night at bedtime active Frequency : qhs;Medic ation Descripti on: atorvasta tin; Dosage:1; Route:ora l; refills:0 ; Quantity: 30 tablet Not Available Not Available Not Available ketamine active Medicatio n Descripti on: ketamine; refills:0 Not Available Not Available Not Available triamcinol one Two times a day active Frequency : bid;Medic ation Descripti on: triamcino lone; refills:0 ; Quantity: 2 Not Available Not Available Not Available clopidogre l active Medicatio n Descripti on: clopidogr el; Route:ora l; refills:0 Not Available Not Available Not Available Cardizem Daily active Frequency : daily;Med ication Descripti on: diltiazem ; Dosage:2; refills:0 ; Quantity: 60 Not Available Not Available Not Available furosemide Two times a day active Duration: 30 days;Freq uency: bid;Medic ation Descripti on: furosemid e; Dosage:1; refills:0 ; Quantity: 60 Not Available Not Available Not Available Singulair Daily active Frequency : daily;Med ication Descripti on: monteluka st; Dosage:1; Route:ora l; refills:5 ; Quantity: 30 Not Available Not Available Not Available Synthroid Daily active Frequency : daily;Med ication Descripti on: levothyro xine; Dosage:1; refills:0 ; Quantity: 30 Not Available Not Available Not Available Wellbutrin Three times a day active Frequency : tid;Medic ation Descripti on: bupropion ; Route:ora l; refills:0 ; Quantity: 3 tablet Not Available Not Available Not Available gabapentin active Medicatio n Descripti on: gabapenti n; refills:0 Not Available Not Available Not Available Endocet active Medicatio n Descripti on: acetamino phen-oxyc odone; Route:ora l; refills:0 ; Quantity: 6 tablet Not Available Not Available Not Available pantoprazo le active Medicatio n Descripti on: pantopraz ole; refills:0 Not Available Not Available Not Available Abilify active Medicatio n Descripti on: aripipraz ole; refills:0 Not Available Not Available Not Available oxymorphon e ER 10 mg tablet,ext ended release,12 hr active Medicatio n Descripti on: oxymorpho ne; Route:ora l; refills:0 Not Available Not Available Not Available Fexmid 7.5 mg tablet active Medicatio n Descripti on: cyclobenz aprine; Route:ora l; refills:0 Not Available Not Available Not Available Colcrys 0.6 mg tablet Two times a day active Duration: 7 days;Freq uency: bid;Medic ation Descripti on: colchicin e; Dosage:1; Route:ora l; refills:0 ; Quantity: 14 tablet Not Available Not Available Not Available Zofran (base) active Medicatio n Descripti on: ondansetr on; refills:0 Not Available Not Available Not Available Vitals Date Recorded Body height Body mass index (BMI) Body weight Provider Name and Address Organization Details Last Updated DateTime 10/04/2023 177.8 cm 33 kg/m2 898754.25 g Adele Hernandez [facility] 10/04/2023 10:37:53 Date Recorded Body height Body mass index (BMI) Body weight Provider Name and Address Organization Details Last Updated DateTime 04/24/2023 180.34 cm 30.7 kg/m2 55600.32 g anil [facility] 04/24/2023 14:51:07 Date Recorded Body height Body mass index (BMI) Body weight Provider Name and Address Organization Details Last Updated DateTime 05/17/2023 177.8 cm 33 kg/m2 242901.25 g [facility] 05/17/2023 13:51:19 Social History Question Answer Notes LastModified by Organizat ion Details LastModified Time Tobacco Smoking Status Former Smoker Charles Lezama dior, [facility] 04/24/2023 14:57:42 What Was The Date Of Your Most Recent Tobacco Screening? 10/04/2023 [email or web address] Information not available 10/04/2023 Has Tobacco Cessation Counseling Been Provided? No [email or web address] Information not available 04/24/2023 Sex: Male Functional Status Question Answer Note LastModified by Organizat ion Details LastModified Time Do you use any illicit or recreational drugs? No [email or web address] Information not available 04/24/2023 Do you or have you ever used any other forms of tobacco or nicotine? No [email or web address] Information not available 04/24/2023 What is your level of alcohol consumption? Occasional [email or web address] Information not available 04/24/2023 Are you currently employed? No [email or web address] Information not available 04/24/2023 Mental Status None recorded. Family History Relationship Description Onset Age of this Age Resolved Age Notes LastModified by Organization Details LastModified Time Brother Diabetes mellitus [email or web address] Not available 04/05 14:58:11 Daughter Diabetes mellitus [email or web address] Not available 04/05 14:58:11 Maternal Aunt Family history of malignant neoplasm [email or web address] Not available 04/05 14:58:42 Maternal Uncle Family history of malignant neoplasm [email or web address] Not available 04/05 14:58:42 Medical History Condition Response Anxiety Disorder Y Diabetes Y Anemia Y Arthritis Y Chronic Obstructive Pulmonary Disease Y High Cholesterol Y Emphysema Y Hypertension Y Depression Y Asthma Y Past Encounters Encounter ID Performer Location Encounter Start Date Encounter Closed Date Diagnosis/Indication Diagnosis SNOMED-CT Code Diagnosis ICD10 Code Diagnosis IMO Codes Diagnosis Note [id number] [facility] [address] 09/04/2016 17:32:18 09/04/2016 17:32:18 [id number] EUSEBIO CHEN MD [facility] [address] [place] [address] 04/24/2023 14:04:08 04/24/2023 15:11:41 Retention of urine 439822279 R33.9 Benign pro static hyperplasia with outflow obstruction 575788098 N40.1 [id number] MD [facility] [address] [place] [address] 05/17/2023 13:02:31 05/17/2023 14:20:18 Retention of urine 064136811 R33.9 Benign pro static hyperplasia with outflow obstruction 169222062 N40.1 [id number] MD [facility]ITA [facility] [address] [place] [address] 10/04/2023 10:18:19 10/04/2023 10:49:26 Retention of urine 694353156 R33.9 Health Concerns Section Related Observation LastModified by Organization Detai ls LastModified Time None Recorded Concern Status LastModified by Organization Details LastModified Time None Recorded Advance Directives Directive None Recorded Payers Insurance Date Sequence Insurance Name Policy Number Policy Alex Covered Member ID Alex Member ID Guarantor Name 10/04/2023 2 [facility] (MEDICARE SUPPLEMENT) Adeel Nichole [id number] Adeel Nichole 04/24/2023 1 [facility] [employer] (MEDICAID REPLACEMENT - HMO) [place] Adeel Nichole Jr [id number] Adeel Nichole 04/24/2023 3 [facility] (MEDICAID REPLACEMENT - HMO) Adeel Deweyp [id number] Adeel Deweyp 10/04/2023 1 [place] (MEDICARE[place] Adeel Nichole Jr [id number] Adeel Nichole Notes Date Note Type Note Provider Name and Address Organization Details Recorded Time 04/24/2023 text/html 68-year-old gentleman who was recently hospitalized for pneumonia. He developed urinary retention. Prior to the hospitalization he was voiding fairly well. He had nocturia x1. There was no hematuria or dysuria. There was no significant hesitancy. He is now on tamsulosin and Cialis. Catheter is removed today. He will be seen back in 2 weeks for postvoid residual EUSEBIO CHEN MD [address] [place], [address], [facility] 04/24/2023 16:24:37 05/17/2023 text/html He failed a voiding trial and catheter is back in place. We talked about surgical intervention but he is a very high risk for any anesthesia. He would prefer just to keep the catheter. He does have home health. Will have him change his catheter every 4 to 6 weeks. EUSEBIO CHEN MD [address] [place], [address], [facility] 05/17/2023 14:30:08 10/04/2023 text/html Visiting nurse change his catheter and inflated the balloon in the urethra. He was admitted to the hospital and Dr. Kelley is cystoscopy with clot evacuation. Patient has some sepsis and hypotension. The urine is clear now. We will continue antibiotics we will have the visiting nurses change it on a monthly basis EUSEBIO CHEN MD [address] [place], [address], [facility] 10/04/2023 10:55:05
--- OUTSIDE RECORDS SUMMARY | 2025-05-20 12:40 | XMS_ITS | Referral Summary ---
Author Organization [employer] ([place], [place], [place], [place], [place]) Address [address] [place] [address] Care Team Providers Care Protection Mgr Name Role Phone Unavailable Primary Care Provider Unavailabl e Encounters Date Type Department Care Team Description 05/14/2025 Lab Requisition [facility] [address] [place] [address] Clifton Parr MD Urinary tract infection, site not specified 05/14/2025 Travel 04/03/2025 Lab Requisition [facility] [address] [place] [address] Clifton Parr MD from Last 3 Months Allergies Active Allergy Reactions Criticality Noted Date [...] Every morning on an empty stomach. 08/21/19 Active metoprolol succinate (TOPROL-XL) 25 MG 24 hr tablet Take 1 tablet (25 mg total) by mouth daily. 07/19/19 Active montelukast (SINGULAIR) 10 mg tablet Take 1 tablet (10 mg total) by mouth nightly. 04/11/20 Active oxybutynin (DITROPAN XL) 15 MG 24 [...] by mouth 2 (two) times daily. 07/02/19 Active tamsulosin (FLOMAX) 0.4 mg Cap 24 [...] 1,000 mg intramuscularly daily. 1 each 09/28/19 Active aspirin 81 MG EC tablet Hold for 7 days, then restart. 0 09/27/19 Active rivaroxaban (XARELTO) 15 mg tablet Hold for for 7 Days, then restart. 0 09/27/19 Active Active Problems Problem Noted Date Diagnosed Date Pain 09/22/2023 Hemorrhagic cystitis 09/22/2023 Social History Tobacco Use Types Packs/Day Years Used Date Smoking Tobacco: Never Smokeless Tobacco: Never Tobacco Cessation:Counseling Given: Not Answered Alcohol Use Standard Drinks/Week Comments Never 0 (1 standard drink = 0.6 oz pur e alcohol) Utilities Answer Date Recorded In the past 12 months, has t he [employer], gas, oil, or water [employer] threatened to shut off services in your [...] Do you speak a language other than Wallisian at ho me? No 09/22/2023 Do you [...] 09/22/2023 9:08 PM EDT Plan of Treatment Not on file Procedures Procedure Name Priority Date/Time Associated Diagnosis [...] Color, UA Straw 05/14/2025 4:31 PM EST [facility] Clarity, UA Clear 05/14/2025 4:31 PM EST [facility] Specific [place], UA <=1.005 1.002 - 1.030 05/14/2025 4:31 PM EST [facility] pH, UA 7.0 5.0 - 9.0 05/14/2025 4:31 PM EST [facility] Leukocytes, UA 3+(A) Negative 05/14/2025 4:31 PM EST [facility] Nitrite, UA Negative Negative 05/14/2025 4:31 PM EST [facility] Protein, UA Negative Negative 05/14/2025 4:31 PM EST [facility] Glucose, UA Negative Negative 05/14/2025 4:31 PM EST [facility] Ketones, UA Negative Negative 05/14/2025 4:31 PM EST [facility] Bilirubin, UA Negative Negative 05/14/2025 4:31 PM EST [facility] Blood, UA Negative Negative 05/14/2025 4:31 PM EST [facility] Urobilinogen, UA 0.2 mg/dL Normal 05/14/2025 4:31 PM EST [facility] Specimen Source random 05/14/2025 4:31 PM EST [facility] Urine 05/14/2025 2:30 AM EST 05/14/2025 4:24 PM EST us Clifton Parr MD URINE ORDERABLES Final Resul t [facility] [address] [place], [place] [address] [phone] * (ABNORMAL) Urinalysis Microscopic Only (05/14/2025 2:30 AM EST) WBC, UA 5-10(A) None Seen, Occasional , 0-5 /HPF 05/14/2025 4:51 PM EST [facility] RBC, UA 0-5(A) None Seen, Rare /HPF 05/14/2025 4:51 PM EST [facility] Bacteria, UA 2+(A) None Seen 05/14/2025 4:51 PM EST [facility] SQUAMOUS EPITHELIAL 0-5(A) None Seen, Rare /HPF 05/14/2025 4:51 PM EST [facility] Urine 05/14/2025 2:30 AM EST 05/14/2025 4:24 PM EST us Clifton Parr MD URINE ORDERABLES Final Resul t [facility] [address] [phone] * Stool Culture (04/03/2025 8:30 AM EDT) Result No Salmonella, Shigella, Campylobacter , E.coli: 0157 screen negative. Normal enteric asaf isolated 04/06/2025 7:55 AM EST [facility] Feces FECES / Unknown 04/03/2025 8 :30 AM EDT 04/03/2025 11:54 AM EDT us Clifton Parr MD MICROBIOLOGY - GENERAL ORDER NANI Final Result [facility] [address] [place], [place] [address] [phone] * C Difficle (04/03/2025 8:30 AM EDT) CDIFF RESULT Negative Negative 04/03/2025 3:43 PM EDT [facility] C. Difficile Ribotype 027 Presumptive Negative Presumptive Negative 04/03/2025 3:43 PM EDT [facility] Stool 04/03/2025 8:30 AM EDT 04/03/2025 11:54 AM EDT Narrative [facility] - 04/03/2025 3:43 PM EDT [employer] [...] FLUIDS AND STOOLS ORDER NANI Final Result [facility] [address] [place] [address], [facility] [phone] * (ABNORMAL) Wound Culture + Gram Stain (04/03/2025 8:30 AM EDT) Result Heavy Growth Staphylococcus aureus(A) 04/07/2025 7:36 AM EST [facility] Result Moderate Growth Klebsiella aerogenes(A) 04/07/2025 7:36 AM [facility] Result Heavy Growth Coagulase negative Staphylococcus(A) 04/07/2025 7:36 AM EST [facility] Result Heavy Growth Corynebacterium species(A) 04/07/2025 7:36 AM EST [facility] Gram Stain Result Few WBCs 04/07/2025 7:36 AM EST [facility] Gram Stain Result Many gram positive cocci in pairs and clusters 04/07/2025 7:36 AM EST [facility] Gram Stain Result Rare gram positive rods 04/07/2025 7:36 AM EST [facility] Wound HEEL STRUCTURE / Unknown 04/03/2025 8:30 AM EDT 04/03/2025 11:54 AM EDT Narrative [facility] - 04/07/2025 7:36 AM EST Mixed [...] ORDER NANI Final Result Performing Organization Address [facility]/State/ZIP Co de Phone Number [facility] [address] [place], [place] [address] [phone] [facility] [address] [place], [place] [address] [phone] from Last 3 Months Additional Health Concerns Infection Onset Date Last Indicated MDR E.coli (C) Comment:ESBL/MDR 09/26/2023 09/26/[address] 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
--- OUTSIDE RECORDS SUMMARY | 2025-05-20 12:40 | XMS_ITS | Encounter Summary ---
Author Organization [employer] ([place], [place], [place], [place], [place]) Address [address] [place] [address] Care Team Providers Care Route Manager Name Role Phone Unavailable Primary Care Provider Unavailabl e Encounter Details Date Type Department Care Team (Late st Contact Info) Description 12/31/2024 Lab Requisition [facility] [address] [place] [address] Elayne Campbell, ABNER [address] [place] [address] Social History Tobacco Use Types Packs/Day Years [...] Do you speak a language other than Sudanese at [facility]? No 09/22/2023 Do you want help with [...] Procedure Name Priority Date/Time Associated Diagnosis Comments TSH Routine 12/31/2024 10:31 AM EDT T4 Routine 12/31/2024 10:31 AM EDT HEMOGLOBIN A1C Routine 12/31/2024 10:31 AM EDT documented in this encounter Results * (ABNORMAL) TSH (12/31/2024 10:31 AM EDT) TSH 0.335(L) 0.360 - 3.740 uIU/mL 12/31/2024 5:33 PM EDT [facility] Blood 12/31/2024 10:3 1 AM EDT 12/31/2024 5:02 PM EDT Elayne Campbell ADJUSTO WRITER OPERATOR LAB BLOOD ORDERABLES Final Re sult Performing Organization Address City/[facility]/ZIP Co de Phone Number [facility] [address] [place] [address], [facility] [phone] * T4 (12/31/2024 10:31 AM EDT) T4, Total 13.3 4.7 - 13.3 ug/dL 12/31/2024 5:33 PM EDT [facility] Blood 12/31/2024 10:3 1 AM EDT 12/31/2024 5:02 PM EDT Elayne Campbell ADJUSTO WRITER OPERATOR LAB BLOOD ORDERABLES Final Re sult Performing Organization Address [facility] de Phone Number [facility] [address] [place] [address] * Hemoglobin A1c (12/31/2024 10:31 AM EDT) Hemoglobin A1C 5.4 % 12/31/2024 5:39 PM EDT [facility] Comment: Hemoglobin A1C levels are related to mean glucose during the preceding 2-3 months. Less than 7% demonstrates glycemic control in diabetic patients. Hemoglobin AlC % Suggested Diagnosis > or = 6.5 Diabetic 5.7 - 6.4 Prediabetic <5.7 Non-diabetic eAVG Glucose 108.28 mg/dL 12/31/2024 5:39 PM EDT [facility] Blood 12/31/2024 10:3 1 AM EDT 12/31/2024 5:02 PM EDT Result [facility] Elayne Campbell ADJUSTO WRITER OPERATOR LAB BLOOD ORDERABLES Final Re sult Performing Organization Address City/[facility] Co de Phone Number [facility] [address] [place] [address], [facility] [phone] documented in this encounter Visit Diagnoses Not on filedocumented in this encounter Additional Health Concerns Infection Onset Date Last Indicated Resolved Time MDR E.coli (C) Comment:ESBL/MDR 09/26/2023 09/26/2023 documented as of this encounter
--- OUTSIDE RECORDS SUMMARY | 2025-05-20 12:40 | XMS_ITS | Clinical Summary ---
Author Organization [facility]: [address] [address] [facility] Address [address] [place] [address] Care Team Providers Care Yarder Puncher Name Role Phone Provider, No Known Primary Care Provider Unavail able Allergies Active Allergy Reactions Criticality Noted Date Comments Morphine And Codeine Hives Medium 06/14/2017 Medications diclofenac (VOLTAREN) 1 % gel gel Apply 4 g topically 4 (Four) Times a Day As Needed. Active potassium chloride (K-DUR,KLOR-CON ) 20 MEQ CR tablet Take 20 mEq by mouth 2 (Two) Times a Day. Active aspirin 81 MG EC tablet Take 81 mg by mouth Daily. Active albuterol (PROVENTIL HFA;VENTOLIN HFA) 108 (90 Base) MCG/ACT inhaler Inhale 2 puffs Every 4 (Four) Hours As Needed for Wheezing. Active cetirizine (zyrTEC) 10 MG tablet Take 10 mg by mouth Daily. Active ARIPiprazole (ABILIFY) 2 MG tablet Take 2 mg by mouth Daily. Active diltiaZEM SR (CARDIZEM SR) 120 MG 12 hr capsule Take 120 mg by mouth 2 (Two) Times a Day. Active insulin glargine (LANTUS) 100 UNIT/ML injection Inject under the skin Daily. Active Colchicine (COLCRYS PO) Take by mouth. Ac tive atorvastatin (LIPITOR) 40 MG tablet Take 40 mg by mouth Daily. Active buPROPion SR (WELLBUTRIN SR) 150 MG 12 hr tablet Take 150 mg by mouth 2 (Two) Times a Day. Active pantoprazole (PROTONIX) 40 MG EC tablet Take 40 mg by mouth Daily. Active clopidogrel (PLAVIX) 75 MG tablet Take 75 mg by mouth Daily. Active montelukast (SINGULAIR) 10 MG tablet Take 10 mg by mouth Every Night. Active budesonide-form oterol (SYMBICORT) 160-4.5 MCG/ACT inhaler Inhale 2 puffs 2 (Two) Times a Day. Active ibuprofen (ADVIL,MOTRIN) 800 MG tablet Take 800 mg by mouth Every 6 (Six) Hours As Needed for Mild Pain . Active diazePAM (VALIUM) 10 MG tablet Take 10 mg by mouth 2 (Two) Times a Day As Needed for Anxiety. Active levothyroxine (SYNTHROID, LEVOTHROID) 175 MCG tablet Take 175 mcg by mouth Daily. Active furosemide (LASIX) 40 MG tablet Take 40 mg by mouth 2 (Two) Times a Day. Active oxyCODONE (oxyCONTIN) 10 MG 12 hr tablet Take 10 mg by mouth Every 12 (Twelve) Hours. Active Pregabalin (LYRICA PO) Take by mouth. Act girish tiZANidine (ZANAFLEX) 4 MG tablet Take 4 mg by mouth At Night As Needed for Muscle Spasms. Active clotrimazole-be tamethasone (LOTRISONE) 1-0.05 % creamIndication s:Rash Apply topically Every 12 (Twelve) Hours. 15 g 1 8 Active Family History Medical History Relation Name Comments Heart disease Father Stroke Father Heart disease Mother Stroke Mother Relation Name Status Comments Father Mother Social History Tobacco Use Types Packs/Day Years Used Date Smoking Tobacco: Every Day Abuse Screen Answer Date Recorded Unsafe at Home or Work/School Not on file Feels Threatened by Someone? Not on file 02/2023 Does Anyone Keep You from Co ntacting Others or Doint Things Outside the Home? Not on file 03/12/2023 Physical Sign of Abuse Present Not on file 1 Housing Stability Answer Date Recorded Current Living Arrangements Not on file 02/2023 Potentially Unsafe Housing Conditions Not on arian e 03/12/2023 Family and Community Support Answer Kevin e Recorded Help with Day-to-Day Activities Not on file 03/12/2023 Lonely or Isolated Not on file 03/12/2023 Employment Answer Date Recorded Do you want help finding or keeping work or a bala b? Not on file 03/12/2023 Disabilities Answer Date Recorded Concentrating, Remembering, or Making Decisions Difficulty Not on file 03/12/2023 Doing Errands Independently Difficulty Not on fi le 03/12/2023 Education Answer Date Recorded Help with school or training? Not on file Preferred Language Not on file 03/12/2023 Sex and Gender Information Value Date Recorded Sex Assigned at Not on file Legal Sex Male 11:33 AM EDT Gender Identity Not on file Sexual Orientation Not on file Last Filed Vital Signs Vital Sign Reading Time Taken Comments Blood Pressure 148/98 06/14/2017 2:23 PM EST Pulse 111 06/22/2017 10:40 AM EST Temperature 36.6 C (97.9 F) 06/22/2017 10:40 AM EST Respiratory Rate 20 06/22/2017 10:40 AM EST Oxygen Saturation 89% 06/22/2017 10:40 AM EST Inhaled Oxygen Concentration - - Weight 111 kg (244 lb) 06/22/2017 10:40 AM EST Height 185.4 cm (6' 1 ) 06/22/2017 10:40 AM EST Body Mass Index 32.19 06/22/2017 10:40 AM EST Plan of Treatment Health Maintenance Due Date Last Done Comments TDAP/TD VACCINES (1 - Tdap) 01/25/1976 COLOGUARD 2002 COLON CANCER SCREENING 5 YEA R SIGMOIDOSCOPY 2002 COLONOSCOPY 2002 COLORECTAL CANCER SCREENING 2002 CT COLONOGRAPHY 2002 FECAL OCCULT BLOOD TEST 2002 FIT Testing (1 year) 2002 ZOSTER VACCINE (1 of 2) 2007 ANNUAL PHYSICAL 06/14/2017 HEPATITIS C SCREENING 06/14/2017 Pneumococcal Vaccine 50+ (2 of 2 - PCV20 or PCV21) 06/07/2019 06/07/2018 INFLUENZA VACCINE 01/02/2025 03/14/2022, , 06/28/2018, Additional history exists COVID-19 Vaccine (3 - 2024-2 6 season) 2025 04/20/2021, 09/30/2020 AAA SCREEN ONCE Completed 08/25/2022, 04/30/2018 Insurance [facility] Care Teams Yarder Puncher Relationship Specialty Start Date End Date Provider, [place] [address] PCP - General 06/14/17
--- OUTSIDE RECORDS SUMMARY | 2025-05-20 12:40 | XMS_ITS | Clinical Summary ---
Author Organization [facility] Address [address] [place] [address] Care Team Providers Care Brake Reliner Name Role Phone Paulo Brody Primary Care Provider [phone] Allergies Active Allergy Reactions Criticality Noted Date Comments Gabapentin Anaphylaxis High 02/19/2018 Morphine And Codeine Anaphylaxis High 06/06/2016 Medications aspirin 81 MG EC tablet TAKE 1 TABLET DAILY. 04/02/20 16 Active atorvastatin (Lipitor) 40 MG tablet TAKE 1 TABLET DAILY DIRECTED. 04/02/20 16 Active buPROPion SR (Wellbutrin SR) 150 MG 12 hr tablet Take 1 tablet (150 mg) by mouth. Active calcium carbonate-vitam in D 600-400 MG-UNIT tablet 03/28/20 18 Active clopidogrel (Plavix) 75 MG tablet TAKE 1 TABLET DAILY. 04/30/20 16 Active cholecalciferol (Vitamin D3) 25 MCG (1000 UT) tablet Take 1 tablet (1,000 Units) by mouth 1 (one) time each day. 11/20/19 21 Active colchicine 0.6 MG tablet Take 1 tablet (0.6 mg) by mouth 1 (one) time each day. 07/19/19 21 Active diclofenac (Voltaren) 1 % topical gel 10/30/19 17 Active dilTIAZem SR (Cardizem SR) 120 MG 12 hr capsule Take 1 capsule (120 mg) by mouth. Active escitalopram (Lexapro) 10 MG tablet Take 1 tablet (10 mg) by mouth 1 (one) time each day. 02/24/20 21 Active furosemide (Lasix) 40 MG tablet 1 tablet once daily 04/02/20 16 Active ipratropium-alb uterol (Duo-Neb) 0.5-2.5 mg/3 mL nebulizer solution INHALE BY MOUTH CONTENTS OF 1 VIAL IN NEBULIZER FOUR TIMES DAILY 11/21/19 21 Active ketoconazole (NIZOral) 2 % shampoo 04/23/20 17 Active metoprolol succinate XL (Toprol-XL) 25 MG 24 hr tablet Take 1 tablet (25 mg) by mouth 1 (one) time each day. 02/10/20 21 Active montelukast (Singulair) 10 MG tablet TAKE 1 TABLET DAILY. 04/30/20 16 Active Multiple Vitamins-Iron tablet 07/24/19 18 Active nitroglycerin (Nitrostat) 0.4 MG SL tablet TAKE 1 TABLET BY MOUTH SUBLINGUALLY EVERY 5 TO 15 MINUTES NEEDED FOR CHEST PAIN 02/24/20 21 Active pantoprazole (ProtoNix) 40 MG EC tablet TAKE 1 TABLET DAILY. 08/09/19 18 Active potassium chloride CR (K-Tab) 20 MEQ ER tablet Take 1 tablet (20 mEq) by mouth 2 (two) times a day. 02/22/20 21 Active pregabalin (Lyrica) 100 MG capsule Take 1 capsule (100 mg) by mouth 3 (three) times a day. 02/04/20 21 Active Xarelto 15 MG tablet TAKE 1 TABLET BY MOUTH EVERY DAY WITH EVENING MEAL 02/24/20 21 Active spironolactone (Aldactone) 25 MG tablet Take 1 tablet (25 mg) by mouth 1 (one) time each day. 03/21/20 21 Active tiZANidine (Zanaflex) 4 MG tablet Take 1 tablet (4 mg) by mouth. Active triamcinolone (Kenalog) 0.5 % ointment APPLY EXTERNALLY TO THE AFFECTED AREA TWICE DAILY FOR 10 DAYS 08/20/19 21 Active oxyCODONE (Roxicodone) 10 MG immediate release tablet Take 1 tablet (10 mg) by mouth 3 (three) times a day if needed. 09/11/19 22 Active diazePAM (Valium) 5 MG tablet Take 1 tablet (5 mg) by mouth 3 (three) times a day if needed. 08/23/19 22 Active ARIPiprazole (Abilify) 5 MG tablet Take 1 tablet (5 mg) by mouth 1 (one) time each day. 09/04/19 22 Active allopurinol (Zyloprim) 300 MG tablet Take 1 tablet (300 mg) by mouth 1 (one) time each day. 07/04/19 22 Active ProAir HFA 108 (90 Base) MCG/ACT inhaler INHALE 2 PUFFS BY MOUTH EVERY 4 HOURS 06/15/19 22 Active tamsulosin (Flomax) 0.4 MG 24 hr capsule Take 2 capsules (0.8 mg) by mouth every night. 03/30/20 23 Active oxybutynin XL (Ditropan-XL) 15 MG 24 hr tablet 1 tablet (15 mg). 03/29/20 23 Active isosorbide mononitrate ER (Imdur) 60 MG 24 hr tablet Take 1 tablet (60 mg) by mouth 1 (one) time each day. 01/25/20 23 Active cetirizine (ZyrTEC) 10 MG tablet Take 1 tablet (10 mg) by mouth 1 (one) time each day. 02/07/20 23 Active cefdinir (Omnicef) 300 MG capsule Take 1 capsule (300 mg) by mouth 1 (one) time each day. 07/08/19 24 Active ranolazine (Ranexa) 500 MG 12 hr tablet Take 1 tablet (500 mg) by mouth 2 (two) times a day. 07/23/19 24 Active Gvoke HypoPen 1-Pack 1 MG/0.2ML solution auto-injectorIn dications:Type 2 diabetes mellitus with hyperglycemia, with long-term current use of insulin Inject 1 mg under the skin if needed (extreme hypoglycemia). 0.2 mL 3 08/10/19 24 Active methenamine hippurate (Hiprex) 1 g tablet Take 1 tablet (1 g) by mouth 1 (one) time each day. 11/26/19 24 Active Nystop 139942 UNIT/GM powder APPLY TOPICALLY TO THE AFFECTED AREA(S) TWICE DAILY DIRECTED 11/09/19 24 Active potassium chloride CR (Klor-Con M20) 20 MEQ ER tablet Take 1 tablet (20 mEq) by mouth 1 (one) time each day. 10/18/19 24 Active traZODone (Desyrel) 100 MG tablet TAKE ONE TABLET BY MOUTH AT BEDTIME FOR INSOMNIA 11/14/19 Active topiramate (Topamax) 25 MG tablet Take 1 tablet (25 mg) by mouth 2 (two) times a day. 180 tablet 3 11/27/19 24 Active topiramate 50 MG tablet Take 1 tablet (50 mg) by mouth 2 (two) times a day. 180 tablet 3 11/27/19 24 Active Blood Glucose Monitoring Suppl (Blood Glucose Monitor System) w/Device kit Test 3 times each day, Dx E 11.9 1 kit 04/02/20 Active Glucose Blood (Blood Glucose Test) strip Use to test blood glucose 3 times a day, DXE 11.9 300 strip 2 04/02/20 Active pen needle, diabetic (B-D UF III MINI PEN NEEDLES) 31G X 5 MM miscIndications :Type 2 diabetes mellitus with diabetic neuropathy, with long-term current use of insulin Use 5 x per day 450 each 3 09/20/19 Active insulin glargine (Basaglar KwikPen) 100 UNIT/ML injection penIndications: Type 2 diabetes mellitus with diabetic neuropathy, with long-term current use of insulin Inject 65 Units under the skin every morning. 60 mL 3 12/20/19 25 026 Active semaglutide (Ozempic, 2 MG/DOSE,) 8 MG/3ML solution pen-injectorInd ications:Type 2 diabetes mellitus with diabetic neuropathy, with long-term current use of insulin Inject 2 mg under the skin 1 time per week. 9 mL 3 12/20/19 25 026 Active NovoLOG FLEXPEN 100 UNIT/ML injection penIndications: Type 2 diabetes mellitus with diabetic neuropathy, with long-term current use of insulin Use before each meal based on correction 10 units for every 50 points blood glucose >150, scale MDD 120 110 mL 3 12/20/19 25 Active levothyroxine (Synthroid, Levoxyl) 150 MCG tabletIndicatio ns:Hypothyroidi sm, unspecified type Take 1 tablet by mouth daily. 30 tablet 2 05/15/20 25 026 Active levothyroxine (Synthroid, Levoxyl) 150 MCG tabletIndicatio ns:Hypothyroidi sm, unspecified type Take 1 tablet by mouth daily. 30 tablet 2 01/03/20 25 025 Discontin ued(Reord er) Active Problems Problem Noted Date Diagnosed Date Class 1 obesity due to exces s calories with serious comorbidity and body mass index (BMI) of 32.0 to 32.9 in adult 10/04/2022 Hyperlipidemia 04/14/2022 Hypertension 04/14/2022 Obesity (BMI 30-39.9) 04/14/2022 Neuropathy 01/02/2022 Retinopathy 09/26/2021 Hypothyroidism 09/26/2021 Type 2 diabetes mellitus, wi th long-term current use of insulin 12/13/2020 Assessment & Plan (12/13/2020 9:50 AM EDT): -relatively controlled given hx of LOC w/ low and comorbidities -------we do not want to push BG too low -A1c 6.3%, 7.4, 7.4, 6.8, 7.1 -reviewed s/s and tx for low; continue sensor -reviewed dm complications -Continue Basaglar 130 units dialy, Admelog BG 200-250 takes 10u, BG 250-300 takes 20, BG 300-350 give 30u, BG 350-400 takes 40u; added admelogt 5 u for bg 180-200 at mealtime -pt encouraged to keep regular f/u and call our Clinic if experiencing hyperglycemia or hypoglycemia or with questions/problems -f/up 4 months Essential hypertension 12/13/2020 Assessment & Plan (12/13/2020 9:51 AM EDT): Controlled, no changes today, continue antihypertensives Mixed hyperlipidemia 12/13/2020 Assessment & Plan (12/13/2020 9:52 AM EDT): -lipid panel controlled - continue atorvastatin Neuropathy due to type 2 diabetes mellitus 12/13 Assessment & Plan (12/13/2020 9:53 AM EDT): -f/up with pain center for pain control -f/up with podiatry and [facility] as needed 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 12/13/2020 Assessment & Plan (12/13/2020 9:54 AM EDT): - Patient has diabetes mellitus and history of hypoglycemia with LOC - Patient is using BGM 4 times daily and PRN to monitor BG values - Patient is treated with multiple (4 or more) daily injections of insulin and this regimen requires frequent adjustments based on BGM results - Discussed S/S of hypoglycemia and ways to correct - continue Dexcom Dysphagia 06/07/2018 Headaches, cluster 03/15/2018 Partial seizures with loss of consciousness 03/04 Thyroid nodule 11/21/2017 Assessment & Plan (12/13/2020 9:52 AM EDT): -TSH 1.97, continue levothyroxine 175 mcg daily Type 2 diabetes mellitus, uncontrolled 7 Asthma 06/06/2016 Resolved Problems Problem Noted Date Diagnosed Date Resolved Date Recurrent pneumonia 06/07/2018 02/23/20 25 Encounters Date Type Department Care Team Description 05/15/2025 9:40 AM EST Office Visit [facility] Endocrinology [address] [place] [address] Elayne Campbell, CANE FEEDER Type 2 diabetes mellitus with diabetic neuropathy, with long-term current use of insulin (Primary Dx); Hypothyroidism, unspecified type; Neuropathy; Mixed hyperlipidemia 05/15/2025 Telephone [facility] Endocrinology [address] [place] [address] Elayne Campbell APRN 03/24/2025 Orders Only [facility] Endocrinology [address] [place] [address] Elayne Campbell APRN 03/24/2025 Telephone [facility] Endocrinology [address] [place] [address] Pierce Mckeon from Last 3 Months Immunizations Immunization Administration Dates Next Due Pneumococcal Conjugate PCV 13 06/07/2018 Family History Medical History Relation Name Comments Cardiac disorder Father Depression Father Hypertension Father Lung disease Father Stroke Father Cardiac disorder Mother Depression Mother Hypertension Mother Stroke Mother Relation Name Status Comments Father Mother Social History Tobacco Use Types Packs/Day Years Used Date Smoking Tobacco: Former Cigarettes 0 Q uit: 1991 Smokeless Tobacco: Former Snuff Quit: 2012 Tobacco Cessation:Counseling Given: Not Answered Alcohol Use Standard Drinks/Week Comments No 0 [...] Sign Reading Time Taken Comments Blood Pressure 119/81 11/27/2023 3:20 PM EDT Pulse 89 11/27/2023 3:20 PM EDT Temperature 36.7 C (98.1 F) 11/27/2023 3:20 PM EDT Respiratory Rate 20 08/06/2018 9:54 AM EST Oxygen Saturation - - Inhaled Oxygen Concentration - - Weight 99.8 kg (220 lb) 11/27/2023 3:20 PM EDT Height 180.3 cm (5' 11 ) 11/27/2023 3:20 PM EDT Body Mass Index 30.68 11/27/2023 3:20 PM EDT Plan of Treatment Upcoming Encounters Date Type Department Care Team (Late st Contact Info) Description 08/28/2025 9:40 AM EDT [facility] [address] [place] [phone] Elayne Campbell, CANE FEEDER [address] [place] [address] Health Maintenance Due Date Last Done Comments [facility]-Medicare Annual Wellness (AWV) 1955 [facility]-/Child/Adol SDOH Screenings 1957 Diabetes: Dental Exam 1967 [facility]- SDOH Screenings 1975 [facility]-Adult SDOH Screenings 1975 [facility]-DTaP,Tdap,and Td Vaccines (1 - Tdap) 01/25/1976 CT Colonography 2002 Colonoscopy 2002 FIT-DNA 2002 FIT 2002 FOBT 2002 Sigmoidoscopy 2002 [facility]-Colorectal Cancer Screening 2002 [facility]-RSV Vaccine: 60+ Years or (1 - Risk 50-74 years 1-dose series) 2007 [facility]-Zoster Vaccines (1 of 2) 2007 [facility]-Abdominal Aortic Aneurysm (AAA) Screening 2022 [id number] Vaccine ( - season) 2025 04/20/2021, 09/30/2020 [facility]-Influenza Vaccine (#1) 02/02/202505/05, 04/17/2023, 03/14/2022, Additional history exists [facility]-Diabetes: Hemoglobin A1C 06/30/2025, 08/01/2023, 04/16/2023, Additional history exists [facility]-Depression Screening 12/18/2025 12/18/2024 [facility]-Hepatitis C Screening Completed 04/30/2018 [facility]-Pneumococcal Vaccine: 50+ Years Completed 05/05/2024, 06/07/2018 [facility]-Obesity Intervention Completed 025, 12/19/2024, 09/19/2024, Additional history exists HPV Vaccines (No Doses Required) Completed [facility]-HIB Vaccines Aged Out No longer e ligible based on patient's age to complete this topic [facility]-Hepatitis A Vaccines Aged Out No longer eligible based on patient's age to complete this topic [facility]-IPV Vaccines Aged Out No longer e ligible based on patient's age to complete this topic [facility]-Rotavirus Vaccines Aged Out No lo nger eligible based on patient's age to complete this topic Procedures Procedure Name Priority Date/Time Associated Diagnosis Comments HEMOGLOBIN A1C Routine 12/31/2024 2:56 PM EDT ACUTE HEPATITIS PANEL Routine 04/30/2018 10:09 AM EST from Last 3 Months or Most Recently Relevant to Health Maintenance Results * Hemoglobin A1c (12/31/2024 2:56 PM EDT) Blood Venous blood specimen / Unknown Elayne Mann McNeil CANE FEEDER LAB BLOOD ORDERABLES Final Result * Acute Hepatitis Panel (04/30/2018 10:09 AM EST) Hepatitis B Surf Antigen NEGATIVE Reference Value: Negative SUNQUEST Hepatitis C Antibody NEGATIVE Reference Range: Negative SUNQUEST Hepatitis A Antibody IgM NEGATIVE Reference Value: Negative SUNQUEST External Hepatitis B Core IgM (HBCM) NEGATIVE Reference Value: Negative SUNQUEST 04/30/2018 10:0 9 AM EST 04/30/2018 10:17 AM EST Sara Ching CANE FEEDER LAB BLOOD ORDERABLES Final R esult SUNQUEST from Last 3 Months or Most Recently Relevant to Health Maintenance Insurance [facility]ARE [facility] Advance Directives Documents on File Type Date Recorded Patient Polisher Sand Expl anation Power of Excel Specialist 05/20/2024 power of a ttorney Care Teams Brake Reliner Relationship Specialty Start Date End Date Paulo Brody DO [address] [place] [id number] PCP - General 08/01/23
--- OUTSIDE RECORDS SUMMARY | 2025-05-26 19:00 | XMS_ITS | Clinical Summary ---
Author Organization Unknown Care Team Providers Care Stamping Die Maker Bench Name Role Phone ZHANG PATEL, ALANA Unavailable Unavailable JODIE PERALES, DENTON Unavailable Unavailable EMMANUEL ATKINSON, MARSHALL Unavailable Unavailable Payers Payer Name Policy Type Policy Number Effective Date Expira tion Date MEDICARE.[facility] [id number] Problems Condition Name Condition Details Condition Category [...] ON SUPPLEMENTAL OXYGEN Active 06-04 00:00: 00 PENITENTIARY (CURRENT) USE OF INSULIN Active 06-04 00:00: 00 PENITENTIARY (CURRENT) USE OF ANTICOAGULAN TS Active 06-04 [...] 4 mg tablet 09-24 00:00: 00 Yes [id number] MUSCLE 1 tablet 2 TIMES DAILY 1 tablet 2 TIMES DAILY (route: oral) Med Classific ation: Locomotor System Novolog FlexPen U-100 Insulin aspart 100 unit/mL (3 mL) [facility] 09-19 00:00: 00 Yes [id number] Unavailable Per instruc tions BEFORE each meal based ON correction scale Max Daily Per instructio ns BEFORE each meal based ON correction scale [facility] Med Classific ation: Endocrine levothyroxi ne 150 mcg tablet 09-18 00:00: 00 Yes [id number] Unavailable Per instruc tions EVERY DAY FOR 6 DAYS of THE WEEK FOR 1 DAY of THE WEEK Per instructio ns EVERY DAY FOR 6 DAYS of THE WEEK FOR 1 DAY of THE WEEK (route: oral) Med Classific ation: Endocrine pregabalin 100 mg capsule 16 00:00: 00 Yes [id number] PAIN 1 capsule THREE TIMES DAILY 1 capsule THREE TIMES DAILY (route: oral) Med Classific ation: Central Nervous System Agents allopurinol 300 mg tablet -14 00:00: 00 Yes [id number] GOUT 1 tablet DAILY 1 tablet DAILY (route: oral) Med Classific ation: Gout and Hyperuric emia Therapy aripiprazol e 5 mg tablet 09-15 00:00: 00 Yes [id number] DEPRESSION 1 tablet EVERY DAY 1 tablet EVERY DAY (route: oral) Med Classific ation: Central Nervous System Agents methenamine hippurate 1 gram tablet 09-15 00:00: 00 Yes [id number] Unavailable Per instruc tions EVERY DAY Per instructio ns EVERY DAY (route: oral) Med Classific ation: Genitouri nary Therapy metoprolol succinate ER 25 mg tablet,exte nded release 24 hr 09-15 00:00: 00 Yes [id number] BLOOD PRESSURE Per instruc tions TWICE DAILY Per instructio ns TWICE DAILY (route: oral) Med Classific ation: Cardiovas cular Therapy Agents montelukast 10 mg tablet 09-15 00:00: 00 Yes [id number] ALLERGIES Per instruc tions AT BEDTIME Per instructio ns AT BEDTIME (route: oral) Med Classific ation: Respirato ry Therapy Agents pantoprazol e 40 mg tablet,jess yed release 09-15 00:00: 00 Yes [id number] REFLUX 1 tablet EVERY DAY 1 tablet EVERY DAY (route: oral) Med Classific ation: Gastroint estinal Therapy Agents potassium chloride ER 20 mEq tablet,exte nded release(par t/cryst) 09-15 00:00: 00 Yes [id number] SUPPLEMENT 1 tablet EVERY DAY 1 tablet EVERY DAY (route: oral) Med Classific ation: Electroly te Balance-N utritiona l Products ranolazine ER 500 mg tablet,exte nded release,12 hr 09-15 00:00: 00 Yes [id number] CHESTVPAIN 1 tablet EVERY TWELVE HOURS 1 tablet EVERY TWELVE HOURS (route: oral) Med Classific ation: Cardiovas cular Therapy Agents spironolact one 25 mg tablet 09-15 00:00: 00 Yes [id number] FLUID Per instruc tions EVERY DAY Per instructio ns EVERY DAY (route: oral) Med Classific ation: Cardiovas cular Therapy Agents tizanidine 4 mg tablet 09-15 00:00: 00 09-30 00:00 :00 No [id number] Per instruc tions EVERY DAY AT BEDTIME NEEDED Per instructio ns EVERY DAY AT BEDTIME NEEDED (route: oral) Med Classific ation: Locomotor System topiramate 25 mg tablet 14 00:00: 00 Yes [id number] HEADACHE 1 tablet TWICE DAILY 1 tablet TWICE DAILY (route: oral) Med Classific ation: Central Nervous System Agents topiramate 50 mg tablet 14 00:00: 00 Yes [id number] HEADACHE 1 tablet TWICE DAILY 1 tablet TWICE DAILY (route: oral) Med Classific ation: Central Nervous System Agents Xarelto 15 mg tablet 09-15 00:00: 00 Yes [id number] HEART Per instruc tions EVERY Per instructio ns EVERY (route: oral) Med Classific ation: Hematolog ical Agents amoxicillin 500 mg capsule 09-12 00:00: 00 09-30 23:59 :00 No [id number] ANTIBIOTIC 1 capsule THREE TIMES DAILY FOR 7 DAYS 1 capsule THREE TIMES DAILY FOR 7 DAYS (route: oral) Med Classific ation: Anti-Infe ctive Agents Ozempic 2 mg/dose (8 mg/3 mL) subcutaneou s pen injector 09-11 00:00: 00 Yes [id number] A2DM 2 mg WEEKLY 2 mg WEEKLY (route: subcutaneo us) Med Classific ation: Endocrine oxycodone 15 mg tablet 331 00:00: 00 Yes [id number] PAIN 1 tablet 4 TIMES DAILY 1 tablet 4 TIMES DAILY (route: oral) Med Classific ation: Analgesic , Anti-infl ammatory or Antipyret ic furosemide 40 mg tablet 27 00:00: 00 Yes [id number] FLUID 1 tablet TWICE DAILY 1 tablet TWICE DAILY (route: oral) Med Classific ation: Cardiovas cular Therapy Agents albuterol sulfate 0.63 mg/3 mL solution for nebulizatio n 09-30 00:00: 00 Yes [id number] BREATHING 3 mL EVERY 6 HOURS 3 mL EVERY 6 HOURS (route: inhalation ) Med Classific ation: Respirato ry Therapy Agents albuterol sulfate HFA 90 mcg/actuati on aerosol inhaler 09-30 00:00: 00 Yes [id number] LUNGS 2 puff EVERY 4 HOURS 2 puff EVERY 4 HOURS (route: inhalation ) Med Classific ation: Respirato ry Therapy Agents aspirin 81 mg chewable tablet 09-30 00:00: 00 Yes [id number] HEART 1 tablet DAILY 1 tablet DAILY (route: oral) Med Classific ation: Hematolog ical Agents cetirizine 10 mg tablet 09-30 00:00: 00 Yes [id number] ALLERGIES 1 tablet DAILY 1 tablet DAILY (route: oral) Med Classific ation: Respirato ry Therapy Agents diazepam 5 mg tablet 09-30 00:00: 00 Yes [id number] ANXIETY 1 tablet 3 TIMES DAILY 1 tablet 3 TIMES DAILY (route: oral) Med Classific ation: Central Nervous System Agents nitroglycer in 0.4 mg sublingual tablet 09-30 00:00: 00 Yes [id number] HEART Per instruc tions DIRECTED Per instructio ns DIRECTED (route: sublingual ) Med Classific ation: Cardiovas cular Therapy Agents oxygen gas for inhalation 09-30 00:00: 00 Yes [id number] SUPPLEMENTA L OXYGEN 2 Liter DAILY 2 Liter DAILY (route: inhalation ) Med Classific ation: Medical Supplies and Durable Medical Equipment (DME) Vitamin D3 50 mcg (2,000 unit) capsule 09-30 00:00: 00 Yes [id number] SUPPLEMENT 1 capsule DAILY 1 capsule DAILY [...] PHYSICIANS ZHANG RN TO OBSERVE AND ASSESS, RESEARCH CHIEF ENGINEER/CAMPUS RECRUITING INTERN TO OBSERVE FOR RISK FOR FALLS AND INSTRUCT IN FALL PREVENTION, HOME SAFETY, MEDICATION MANAGEMENT, INFECTION PREVENTION, AND NUTRITION MANAGEMENT. RN/RESEARCH CHIEF ENGINEER/CAMPUS RECRUITING INTERN NURSE MAY PERFORM O2 SATURATION LEVEL ON ADMISSION AND PRN FOR RN TO ASSESS/RESEARCH CHIEF ENGINEER TO OBSERVE PATIENT, WITH NOTIFICATION TO THE PHYSICIAN IF SATURATION IS 90% IN THE ABSENCE OF MORE SPECIFIC PARAMETERS FROM THE PHYSICIAN. AGENCY MAY PERFORM A RESUMPTION OF CARE VISIT FOLLOWING ANY HOSPITAL ADMISSION. RN/RESEARCH CHIEF ENGINEER/CAMPUS RECRUITING INTERN TO MONITOR CO-MORBID CONDITIONS LISTED ON THE PLAN OF CARE AND ANY NEW CONDITIONS THAT PRESENT THEMSELVES DURING THIS EPISODE TO IDENTIFY CHANGES AND INTERVENE TO MINIMIZE COMPLICATIONS. [code = RN TO OBSERVE, ASSESS, EVALUATE, AND DEVELOP AN INDIVIDUALIZED PLAN OF CARE. AGENCY MAY ACCEPT ORDERS FROM CONSULTING PHYSICIANS ZHANG PERALES TO OBSERVE AND ASSESS, RESEARCH CHIEF ENGINEER/CAMPUS RECRUITING INTERN TO OBSERVE FOR RISK FOR FALLS AND INSTRUCT IN FALL PREVENTION, HOME SAFETY, MEDICATION MANAGEMENT, INFECTION PREVENTION, AND NUTRITION MANAGEMENT. RN/RESEARCH CHIEF ENGINEER/CAMPUS RECRUITING INTERN NURSE MAY PERFORM O2 SATURATION LEVEL ON ADMISSION AND PRN FOR RN TO ASSESS/RESEARCH CHIEF ENGINEER TO OBSERVE PATIENT, WITH NOTIFICATION TO THE PHYSICIAN IF SATURATION IS 90% IN THE ABSENCE OF MORE SPECIFIC PARAMETERS FROM THE PHYSICIAN. AGENCY MAY PERFORM A RESUMPTION OF CARE VISIT FOLLOWING ANY HOSPITAL ADMISSION. RN/RESEARCH CHIEF ENGINEER/CAMPUS RECRUITING INTERN TO MONITOR CO-MORBID CONDITIONS LISTED ON THE PLAN OF CARE AND ANY NEW CONDITIONS THAT PRESENT THEMSELVES DURING THIS EPISODE TO IDENTIFY CHANGES AND INTERVENE TO MINIMIZE COMPLICATIONS.] Future Scheduled Test MEDICATION MANAGEMENT; RN/RESEARCH CHIEF ENGINEER/CAMPUS RECRUITING INTERN TO REVIEW MEDICATIONS FOR INTERACTIONS, EFFECTIVENESS OF DRUG THERAPY, AND SIGNS/SYMPTOMS OF ADVERSE REACTIONS. MAY INSTRUCT AND REINFORCE MEDICATION TEACHING RELATED TO THE USE OF MEDICATIONS, DOSAGE, FREQUENCY, PURPOSE, SIDE EFFECTS, AND TO REPORT COMPLICATIONS. [code = MEDICATION MANAGEMENT; RN/RESEARCH CHIEF ENGINEER/CAMPUS RECRUITING INTERN TO REVIEW MEDICATIONS FOR INTERACTIONS, EFFECTIVENESS OF DRUG THERAPY, AND SIGNS/SYMPTOMS OF ADVERSE REACTIONS. MAY INSTRUCT AND REINFORCE MEDICATION TEACHING RELATED TO THE USE OF MEDICATIONS, DOSAGE, FREQUENCY, PURPOSE, SIDE EFFECTS, AND TO REPORT COMPLICATIONS.] Future Scheduled Test RESPIRATOR Y SYSTEM MANAGEMENT; RN TO ASSESS AND TEACH, RESEARCH CHIEF ENGINEER/CAMPUS RECRUITING INTERN TO OBSERVE AND TEACH RELATED TO ALTERED RESPIRATORY STATUS TO MINIMIZE COMPLICATIONS AND REDUCE HOSPITALIZATION. [code = RESPIRATORY SYSTEM MANAGEMENT; RN TO ASSESS AND TEACH, RESEARCH CHIEF ENGINEER/CAMPUS RECRUITING INTERN TO OBSERVE AND TEACH RELATED TO ALTERED RESPIRATORY STATUS TO MINIMIZE COMPLICATIONS AND REDUCE HOSPITALIZATION.] Future Scheduled Test COPD MANAG EMENT; RN TO ASSESS AND TEACH, RESEARCH CHIEF ENGINEER/CAMPUS RECRUITING INTERN TO OBSERVE AND TEACH SIGNS/SYMPTOMS OF COPD EXACERBATION AND PROVIDE EARLY INTERVENTIONS TO MINIMIZE RISK OF HOSPITALIZATION. RN/RESEARCH CHIEF ENGINEER/CAMPUS RECRUITING INTERN TO INSTRUCT ON SELF-CARE MANAGEMENT INCLUDING BREATHING TECHNIQUES, AIRWAY CLEARANCE, AND PROPER USE OF COPD MEDICATIONS. RN TO ASSESS AND TEACH, RESEARCH CHIEF ENGINEER/CAMPUS RECRUITING INTERN TO OBSERVE AND TEACH PATIENT/CAREGIVER ABILITY TO MONITOR AND RECORD VITAL SIGNS INCLUDING PULSE OXIMETRY AND BLOOD PRESSURE. PULSE OXIMETER AND BP MONITOR TO BE PROVIDED IF NEEDED [code = COPD MANAGEMENT; RN TO ASSESS AND TEACH, RESEARCH CHIEF ENGINEER/CAMPUS RECRUITING INTERN TO OBSERVE AND TEACH SIGNS/SYMPTOMS OF COPD EXACERBATION AND PROVIDE EARLY INTERVENTIONS TO MINIMIZE RISK OF HOSPITALIZATION. RN/RESEARCH CHIEF ENGINEER/CAMPUS RECRUITING INTERN TO INSTRUCT ON SELF-CARE MANAGEMENT INCLUDING BREATHING TECHNIQUES, AIRWAY CLEARANCE, AND PROPER USE OF COPD MEDICATIONS. RN TO ASSESS AND TEACH, RESEARCH CHIEF ENGINEER/CAMPUS RECRUITING INTERN TO OBSERVE AND TEACH PATIENT/CAREGIVER ABILITY TO MONITOR AND RECORD VITAL SIGNS INCLUDING PULSE OXIMETRY AND BLOOD PRESSURE. PULSE OXIMETER AND BP MONITOR TO BE PROVIDED IF NEEDED] Future Scheduled Test OXYGEN THE RAPY; RN/RESEARCH CHIEF ENGINEER/CAMPUS RECRUITING INTERN TO INSTRUCT ON OXYGEN MANAGEMENT INCLUDING: ADMINISTRATION AT 3 L/MIN VIA CONTINUOUS/PRN FOR CARE OF EQUIPMENT AND SAFETY. [code = OXYGEN THERAPY; RN/RESEARCH CHIEF ENGINEER/CAMPUS RECRUITING INTERN TO INSTRUCT ON OXYGEN MANAGEMENT INCLUDING: ADMINISTRATION AT 3 L/MIN VIA CONTINUOUS/PRN FOR CARE OF EQUIPMENT AND SAFETY.] Future Scheduled Test GENITOURIN MAHESH MANAGEMENT; RN TO ASSESS AND TEACH, RESEARCH CHIEF ENGINEER/CAMPUS RECRUITING INTERN TO OBSERVE AND TEACH RELATED TO ALTERED GENITOURINARY STATUS TO MINIMIZE COMPLICATIONS AND REDUCE HOSPITALIZATION. [code = GENITOURINARY MANAGEMENT; RN TO ASSESS AND TEACH, RESEARCH CHIEF ENGINEER/CAMPUS RECRUITING INTERN TO OBSERVE AND TEACH RELATED TO ALTERED GENITOURINARY STATUS TO MINIMIZE COMPLICATIONS AND REDUCE HOSPITALIZATION.] Future Scheduled Test INDWELLING URINARY CATHETER INSERTION; RN/RESEARCH CHIEF ENGINEER/CAMPUS RECRUITING INTERN TO PERFORM INSERTION OF 18 FR INDWELLING CATHETER, INSTILL 30 CC OF STERILE WATER INTO BALLOON, SECURE TUBING WITH APPROPRIATE SECUREMENT DEVICE CHANGE MONTHLY AND PRN FOR LEAKAGE, BLOCKAGE, DISLODGEMENT, OR MALFUNCTION. [code = INDWELLING URINARY CATHETER INSERTION; RN/RESEARCH CHIEF ENGINEER/CAMPUS RECRUITING INTERN TO PERFORM INSERTION OF 18 FR INDWELLING CATHETER, INSTILL 30 CC OF STERILE WATER INTO BALLOON, SECURE TUBING WITH APPROPRIATE SECUREMENT DEVICE CHANGE MONTHLY AND PRN FOR LEAKAGE, BLOCKAGE, DISLODGEMENT, OR MALFUNCTION.] Future Scheduled Test INDWELLING URINARY CATHETER MANAGEMENT; RN/RESEARCH CHIEF ENGINEER/CAMPUS RECRUITING INTERN TO INSTRUCT PATIENT / CAREGIVER ON INDWELLING URINARY CATHETER MANAGEMENT INCLUDING CARE OF CATHETER, SIGN AND SYMPTOMS OF COMPLICATIONS, PERINEAL CARE, TUBE AND BAG PLACEMENT, PREVENTION OF INFECTION AND SKIN BREAKDOWN. [code = INDWELLING URINARY CATHETER MANAGEMENT; RN/RESEARCH CHIEF ENGINEER/CAMPUS RECRUITING INTERN TO INSTRUCT PATIENT / CAREGIVER ON INDWELLING URINARY CATHETER MANAGEMENT INCLUDING CARE OF CATHETER, SIGN AND SYMPTOMS OF COMPLICATIONS, PERINEAL CARE, TUBE AND BAG PLACEMENT, PREVENTION OF INFECTION AND SKIN BREAKDOWN.] Future Scheduled Test PRN VISITS ; NUMBER OF RN/RESEARCH CHIEF ENGINEER/CAMPUS RECRUITING INTERN VISITS: 2 RN/RESEARCH CHIEF ENGINEER/CAMPUS RECRUITING INTERN TO PERFORM: 2 FOR THE FOLLOWING REASONS: CATHETER OBSERVATION [code = PRN VISITS; NUMBER OF RN/RESEARCH CHIEF ENGINEER/CAMPUS RECRUITING INTERN VISITS: 2 RN/RESEARCH CHIEF ENGINEER/CAMPUS RECRUITING INTERN TO PERFORM: 2 FOR THE FOLLOWING REASONS: CATHETER OBSERVATION] Future Scheduled Test RN/RESEARCH CHIEF ENGINEER/CAMPUS RECRUITING INTERN TO PERFORM/TEACH PATIENT/CAREGIVER WOUND CARE PRESSURE INJURY TO RIGHT HEEL, LEFT AND RIGHT CHEEK OF BUTTOCKS IRRIGATE/CLEANSE WITH WOUND WASH APPLY CALCIUM ALGINATE PLACE BORDER GAUZE MAY APPLY SKIN BARRIER TO PERIWOUND PRN TO PREVENT MACERATION AND PROTECT PERIWOUND CHANGE DRESSING EVERY 2 DAYS AND CAREGIVER FOR DISLODGEMENT AND SOILING AND INBETWEEN AGENCY VISITS [code = RN/RESEARCH CHIEF ENGINEER/CAMPUS RECRUITING INTERN TO PERFORM/TEACH PATIENT/CAREGIVER WOUND CARE PRESSURE INJURY [...] AND DECREASED PAIN BY END OF EPISODE. Progress Notes Progress Notes <paragraph>[Visit Date: 2024 by DENTON FELICIANO RN]:</paragraph><paragraph>PT LYING IN BED FLAT ON BACK. MARYELLEN STATED PT HAD BEEN ACTING WEIRD THIS MORNING. PT HANDS SHAKEY AND VERBALIZES FEELS DIFFERENT . TOLD MARYELLEN TO CHECK PT SUGAR RIGHT NOW. PT GLUCOMETER READING WAS 76. STATED SHE GAVE HIS INSULIN WITHOUT TAKING HIS GLUCOMETER READING FIRST. ASKED TO MAKE PT PB AND CRACKERS TO EAT RIGHT NOW AND PT DID WHILE I TOOK HIS VITALS. PT WOUND CARE PERFORMED. PT ELBOW HEALED AND PT LEFT LOWER HIP HEALED. PT HEEL HAS PROGRESSIVELY GOT WORSE AND DOCTOR ZHANG WAS NOTIFED IN HOME AND RECOMMENDED DEBRIDMENT. PT TO SEE ACCOUNT EXECUTIVE TRAINEE SARAVANAN. PT HAD NEW WOUNDS TO BODY. PT LEFT SCISSORS IN BED AND WAS LEFT THEIR SO LONG THAT THE SCISSORS HANDLES MADE GUERRA ON PT AND MADE ULCERATIONS. PT HAS LITTLE BLOOD AROUND PENILE ENTRY WHERE CATHETER IS. PT URINE LOOKS TO BE YELLOW AND CLOUDY. APS CALLED AND SPOKE WITH VANESSA FROM AND SHE AGREED WITH APS AND TOOK NOTE OF ALL FINDINGS IN HOME.</paragraph> Encounters Start Date/Time End Date/Time Encounter Type Admission Type Attending [facility] Care Facility Care Department Encounter ID Discharge Date Discharge Status Discharge Condition Discharge Reason Percent Goals Met 2025-03-29 00:00:00 2025-05-27 00:00:00 Outpatient [facility] [id number]
--- OUTSIDE RECORDS SUMMARY | 2025-05-26 19:00 | XMS_ITS | Clinical Summary ---
Author Organization Unknown Care Team Providers Care Cream Hauler Name Role Phone ZHANG PATEL, ALANA Unavailable Unavailable JODIE PERALES, DENTON Unavailable Unavailable EMMANUEL ATKINSON, MARSHALL Unavailable Unavailable Payers Payer Name Policy Type Policy Number Effective Date Expira tion Date MEDICARE.[facility] [id number] Problems Condition Name Condition Details Condition Category [...] ON SUPPLEMENTAL OXYGEN Active 06-04 00:00: 00 [facility] (CURRENT) USE OF INSULIN Active 06-04 00:00: 00 [facility] (CURRENT) USE OF ANTICOAGULAN TS Active 06-04 [...] 4 mg tablet 09-24 00:00: 00 Yes [id number] MUSCLE 1 tablet 2 TIMES DAILY 1 tablet 2 TIMES DAILY (route: oral) Med Classific ation: Locomotor System Novolog FlexPen U-100 Insulin aspart 100 unit/mL (3 mL[facility] 09-[facility] 00:00: 00 Yes [id number] Unavailable Per instruc tions BEFORE each meal based ON correction scale Max Daily Per instructio ns BEFORE each meal based ON correction scale Max [facility] Med Classific ation: Endocrine levothyroxi ne 150 mcg tablet 09-18 00:00: 00 Yes [id number] Unavailable Per instruc tions EVERY DAY FOR 6 DAYS of THE WEEK FOR 1 DAY of THE WEEK Per instructio ns EVERY DAY FOR 6 DAYS of THE WEEK FOR 1 DAY of THE WEEK (route: oral) Med Classific ation: Endocrine pregabalin 100 mg capsule 16 00:00: 00 Yes [id number] PAIN 1 capsule THREE TIMES DAILY 1 capsule THREE TIMES DAILY (route: oral) Med Classific ation: Central Nervous System Agents allopurinol 300 mg tablet -14 00:00: 00 Yes [id number] GOUT 1 tablet DAILY 1 tablet DAILY (route: oral) Med Classific ation: Gout and Hyperuric emia Therapy aripiprazol e 5 mg tablet 09-15 00:00: 00 Yes [id number] DEPRESSION 1 tablet EVERY DAY 1 tablet EVERY DAY (route: oral) Med Classific ation: Central Nervous System Agents methenamine hippurate 1 gram tablet 09-15 00:00: 00 Yes [id number] Unavailable Per instruc tions EVERY DAY Per instructio ns EVERY DAY (route: oral) Med Classific ation: Genitouri nary Therapy metoprolol succinate ER 25 mg tablet,exte nded release 24 hr 09-15 00:00: 00 Yes [id number] BLOOD PRESSURE Per instruc tions TWICE DAILY Per instructio ns TWICE DAILY (route: oral) Med Classific ation: Cardiovas cular Therapy Agents montelukast 10 mg tablet 09-15 00:00: 00 Yes [id number] ALLERGIES Per instruc tions AT BEDTIME Per instructio ns AT BEDTIME (route: oral) Med Classific ation: Respirato ry Therapy Agents pantoprazol e 40 mg tablet,jess yed release 09-15 00:00: 00 Yes [id number] REFLUX 1 tablet EVERY DAY 1 tablet EVERY DAY (route: oral) Med Classific ation: Gastroint estinal Therapy Agents potassium chloride ER 20 mEq tablet,exte nded release(par t/cryst) 09-15 00:00: 00 Yes [id number] SUPPLEMENT 1 tablet EVERY DAY 1 tablet EVERY DAY (route: oral) Med Classific ation: Electroly te Balance-N utritiona l Products ranolazine ER 500 mg tablet,exte nded release,12 hr 09-15 00:00: 00 Yes [id number] CHESTVPAIN 1 tablet EVERY TWELVE HOURS 1 tablet EVERY TWELVE HOURS (route: oral) Med Classific ation: Cardiovas cular Therapy Agents spironolact one 25 mg tablet 09-15 00:00: 00 Yes [id number] FLUID Per instruc tions EVERY DAY Per instructio ns EVERY DAY (route: oral) Med Classific ation: Cardiovas cular Therapy Agents tizanidine 4 mg tablet 09-15 00:00: 00 09-30 00:00 :00 No [id number] Per instruc tions EVERY DAY AT BEDTIME NEEDED Per instructio ns EVERY DAY AT BEDTIME NEEDED (route: oral) Med Classific ation: Locomotor System topiramate 25 mg tablet 14 00:00: 00 Yes [id number] HEADACHE 1 tablet TWICE DAILY 1 tablet TWICE DAILY (route: oral) Med Classific ation: Central Nervous System Agents topiramate 50 mg tablet 14 00:00: 00 Yes [id number] HEADACHE 1 tablet TWICE DAILY 1 tablet TWICE DAILY (route: oral) Med Classific ation: Central Nervous System Agents Xarelto 15 mg tablet 09-15 00:00: 00 Yes [id number] HEART Per instruc tions EVERY Per instructio ns EVERY (route: oral) Med Classific ation: Hematolog ical Agents amoxicillin 500 mg capsule 09-12 00:00: 00 09-30 23:59 :00 No [id number] ANTIBIOTIC 1 capsule THREE TIMES DAILY FOR 7 DAYS 1 capsule THREE TIMES DAILY FOR 7 DAYS (route: oral) Med Classific ation: Anti-Infe ctive Agents Ozempic 2 mg/dose (8 mg/3 mL) subcutaneou s pen injector 09-11 00:00: 00 Yes [id number] A2DM 2 mg WEEKLY 2 mg WEEKLY (route: subcutaneo us) Med Classific ation: Endocrine oxycodone 15 mg tablet 331 00:00: 00 Yes [id number] PAIN 1 tablet 4 TIMES DAILY 1 tablet 4 TIMES DAILY (route: oral) Med Classific ation: Analgesic , Anti-infl ammatory or Antipyret ic furosemide 40 mg tablet 27 00:00: 00 Yes [id number] FLUID 1 tablet TWICE DAILY 1 tablet TWICE DAILY (route: oral) Med Classific ation: Cardiovas cular Therapy Agents albuterol sulfate 0.63 mg/3 mL solution for nebulizatio n 09-30 00:00: 00 Yes [id number] BREATHING 3 mL EVERY 6 HOURS 3 mL EVERY 6 HOURS (route: inhalation ) Med Classific ation: Respirato ry Therapy Agents albuterol sulfate HFA 90 mcg/actuati on aerosol inhaler 09-30 00:00: 00 Yes [id number] LUNGS 2 puff EVERY 4 HOURS 2 puff EVERY 4 HOURS (route: inhalation ) Med Classific ation: Respirato ry Therapy Agents aspirin 81 mg chewable tablet 09-30 00:00: 00 Yes [id number] HEART 1 tablet DAILY 1 tablet DAILY (route: oral) Med Classific ation: Hematolog ical Agents cetirizine 10 mg tablet 09-30 00:00: 00 Yes [id number] ALLERGIES 1 tablet DAILY 1 tablet DAILY (route: oral) Med Classific ation: Respirato ry Therapy Agents diazepam 5 mg tablet 09-30 00:00: 00 Yes [id number] ANXIETY 1 tablet 3 TIMES DAILY 1 tablet 3 TIMES DAILY (route: oral) Med Classific ation: Central Nervous System Agents nitroglycer in 0.4 mg sublingual tablet 09-30 00:00: 00 Yes [id number] HEART Per instruc tions DIRECTED Per instructio ns DIRECTED (route: sublingual ) Med Classific ation: Cardiovas cular Therapy Agents oxygen gas for inhalation 09-30 00:00: 00 Yes [id number] SUPPLEMENTA L OXYGEN 2 Liter DAILY 2 Liter DAILY (route: inhalation ) Med Classific ation: Medical Supplies and Durable Medical Equipment (DME) Vitamin D3 50 mcg (2,000 unit) capsule 09-30 00:00: 00 Yes [id number] SUPPLEMENT 1 capsule DAILY 1 capsule DAILY [...] PHYSICIANS ZHANG RN TO OBSERVE AND ASSESS, MENTAL HEALTH TECHNICIAN/SECOND VP HR ASSESSMENT TO OBSERVE FOR RISK FOR FALLS AND INSTRUCT IN FALL PREVENTION, HOME SAFETY, MEDICATION MANAGEMENT, INFECTION PREVENTION, AND NUTRITION MANAGEMENT. RN/MENTAL HEALTH TECHNICIAN/SECOND VP HR ASSESSMENT NURSE MAY PERFORM O2 SATURATION LEVEL ON ADMISSION AND PRN FOR RN TO ASSESS/MENTAL HEALTH TECHNICIAN TO OBSERVE PATIENT, WITH NOTIFICATION TO THE PHYSICIAN IF SATURATION IS 90% IN THE ABSENCE OF MORE SPECIFIC PARAMETERS FROM THE PHYSICIAN. AGENCY MAY PERFORM A RESUMPTION OF CARE VISIT FOLLOWING ANY HOSPITAL ADMISSION. RN/MENTAL HEALTH TECHNICIAN/SECOND VP HR ASSESSMENT TO MONITOR CO-MORBID CONDITIONS LISTED ON THE PLAN OF CARE AND ANY NEW CONDITIONS THAT PRESENT THEMSELVES DURING THIS EPISODE TO IDENTIFY CHANGES AND INTERVENE TO MINIMIZE COMPLICATIONS. [code = RN TO OBSERVE, ASSESS, EVALUATE, AND DEVELOP AN INDIVIDUALIZED PLAN OF CARE. AGENCY MAY ACCEPT ORDERS FROM CONSULTING PHYSICIANS ZHANG PERALES TO OBSERVE AND ASSESS, MENTAL HEALTH TECHNICIAN/SECOND VP HR ASSESSMENT TO OBSERVE FOR RISK FOR FALLS AND INSTRUCT IN FALL PREVENTION, HOME SAFETY, MEDICATION MANAGEMENT, INFECTION PREVENTION, AND NUTRITION MANAGEMENT. RN/MENTAL HEALTH TECHNICIAN/SECOND VP HR ASSESSMENT NURSE MAY PERFORM O2 SATURATION LEVEL ON ADMISSION AND PRN FOR RN TO ASSESS/MENTAL HEALTH TECHNICIAN TO OBSERVE PATIENT, WITH NOTIFICATION TO THE PHYSICIAN IF SATURATION IS 90% IN THE ABSENCE OF MORE SPECIFIC PARAMETERS FROM THE PHYSICIAN. AGENCY MAY PERFORM A RESUMPTION OF CARE VISIT FOLLOWING ANY HOSPITAL ADMISSION. RN/MENTAL HEALTH TECHNICIAN/SECOND VP HR ASSESSMENT TO MONITOR CO-MORBID CONDITIONS LISTED ON THE PLAN OF CARE AND ANY NEW CONDITIONS THAT PRESENT THEMSELVES DURING THIS EPISODE TO IDENTIFY CHANGES AND INTERVENE TO MINIMIZE COMPLICATIONS.] Future Scheduled Test MEDICATION MANAGEMENT; RN/MENTAL HEALTH TECHNICIAN/SECOND VP HR ASSESSMENT TO REVIEW MEDICATIONS FOR INTERACTIONS, EFFECTIVENESS OF DRUG THERAPY, AND SIGNS/SYMPTOMS OF ADVERSE REACTIONS. MAY INSTRUCT AND REINFORCE MEDICATION TEACHING RELATED TO THE USE OF MEDICATIONS, DOSAGE, FREQUENCY, PURPOSE, SIDE EFFECTS, AND TO REPORT COMPLICATIONS. [code = MEDICATION MANAGEMENT; RN/MENTAL HEALTH TECHNICIAN/SECOND VP HR ASSESSMENT TO REVIEW MEDICATIONS FOR INTERACTIONS, EFFECTIVENESS OF DRUG THERAPY, AND SIGNS/SYMPTOMS OF ADVERSE REACTIONS. MAY INSTRUCT AND REINFORCE MEDICATION TEACHING RELATED TO THE USE OF MEDICATIONS, DOSAGE, FREQUENCY, PURPOSE, SIDE EFFECTS, AND TO REPORT COMPLICATIONS.] Future Scheduled Test RESPIRATOR Y SYSTEM MANAGEMENT; RN TO ASSESS AND TEACH, MENTAL HEALTH TECHNICIAN/SECOND VP HR ASSESSMENT TO OBSERVE AND TEACH RELATED TO ALTERED RESPIRATORY STATUS TO MINIMIZE COMPLICATIONS AND REDUCE HOSPITALIZATION. [code = RESPIRATORY SYSTEM MANAGEMENT; RN TO ASSESS AND TEACH, MENTAL HEALTH TECHNICIAN/SECOND VP HR ASSESSMENT TO OBSERVE AND TEACH RELATED TO ALTERED RESPIRATORY STATUS TO MINIMIZE COMPLICATIONS AND REDUCE HOSPITALIZATION.] Future Scheduled Test COPD MANAG EMENT; RN TO ASSESS AND TEACH, MENTAL HEALTH TECHNICIAN/SECOND VP HR ASSESSMENT TO OBSERVE AND TEACH SIGNS/SYMPTOMS OF COPD EXACERBATION AND PROVIDE EARLY INTERVENTIONS TO MINIMIZE RISK OF HOSPITALIZATION. RN/MENTAL HEALTH TECHNICIAN/SECOND VP HR ASSESSMENT TO INSTRUCT ON SELF-CARE MANAGEMENT INCLUDING BREATHING TECHNIQUES, AIRWAY CLEARANCE, AND PROPER USE OF COPD MEDICATIONS. RN TO ASSESS AND TEACH, MENTAL HEALTH TECHNICIAN/SECOND VP HR ASSESSMENT TO OBSERVE AND TEACH PATIENT/CAREGIVER ABILITY TO MONITOR AND RECORD VITAL SIGNS INCLUDING PULSE OXIMETRY AND BLOOD PRESSURE. PULSE OXIMETER AND BP MONITOR TO BE PROVIDED IF NEEDED [code = COPD MANAGEMENT; RN TO ASSESS AND TEACH, MENTAL HEALTH TECHNICIAN/SECOND VP HR ASSESSMENT TO OBSERVE AND TEACH SIGNS/SYMPTOMS OF COPD EXACERBATION AND PROVIDE EARLY INTERVENTIONS TO MINIMIZE RISK OF HOSPITALIZATION. RN/MENTAL HEALTH TECHNICIAN/SECOND VP HR ASSESSMENT TO INSTRUCT ON SELF-CARE MANAGEMENT INCLUDING BREATHING TECHNIQUES, AIRWAY CLEARANCE, AND PROPER USE OF COPD MEDICATIONS. RN TO ASSESS AND TEACH, MENTAL HEALTH TECHNICIAN/SECOND VP HR ASSESSMENT TO OBSERVE AND TEACH PATIENT/CAREGIVER ABILITY TO MONITOR AND RECORD VITAL SIGNS INCLUDING PULSE OXIMETRY AND BLOOD PRESSURE. PULSE OXIMETER AND BP MONITOR TO BE PROVIDED IF NEEDED] Future Scheduled Test OXYGEN THE RAPY; RN/MENTAL HEALTH TECHNICIAN/SECOND VP HR ASSESSMENT TO INSTRUCT ON OXYGEN MANAGEMENT INCLUDING: ADMINISTRATION AT 3 L/MIN VIA CONTINUOUS/PRN FOR CARE OF EQUIPMENT AND SAFETY. [code = OXYGEN THERAPY; RN/MENTAL HEALTH TECHNICIAN/SECOND VP HR ASSESSMENT TO INSTRUCT ON OXYGEN MANAGEMENT INCLUDING: ADMINISTRATION AT 3 L/MIN VIA CONTINUOUS/PRN FOR CARE OF EQUIPMENT AND SAFETY.] Future Scheduled Test GENITOURIN MAHESH MANAGEMENT; RN TO ASSESS AND TEACH, MENTAL HEALTH TECHNICIAN/SECOND VP HR ASSESSMENT TO OBSERVE AND TEACH RELATED TO ALTERED GENITOURINARY STATUS TO MINIMIZE COMPLICATIONS AND REDUCE HOSPITALIZATION. [code = GENITOURINARY MANAGEMENT; RN TO ASSESS AND TEACH, MENTAL HEALTH TECHNICIAN/SECOND VP HR ASSESSMENT TO OBSERVE AND TEACH RELATED TO ALTERED GENITOURINARY STATUS TO MINIMIZE COMPLICATIONS AND REDUCE HOSPITALIZATION.] Future Scheduled Test INDWELLING URINARY CATHETER INSERTION; RN/MENTAL HEALTH TECHNICIAN/SECOND VP HR ASSESSMENT TO PERFORM INSERTION OF 18 FR INDWELLING CATHETER, INSTILL 30 CC OF STERILE WATER INTO BALLOON, SECURE TUBING WITH APPROPRIATE SECUREMENT DEVICE CHANGE MONTHLY AND PRN FOR LEAKAGE, BLOCKAGE, DISLODGEMENT, OR MALFUNCTION. [code = INDWELLING URINARY CATHETER INSERTION; RN/MENTAL HEALTH TECHNICIAN/SECOND VP HR ASSESSMENT TO PERFORM INSERTION OF 18 FR INDWELLING CATHETER, INSTILL 30 CC OF STERILE WATER INTO BALLOON, SECURE TUBING WITH APPROPRIATE SECUREMENT DEVICE CHANGE MONTHLY AND PRN FOR LEAKAGE, BLOCKAGE, DISLODGEMENT, OR MALFUNCTION.] Future Scheduled Test INDWELLING URINARY CATHETER MANAGEMENT; RN/MENTAL HEALTH TECHNICIAN/SECOND VP HR ASSESSMENT TO INSTRUCT PATIENT / CAREGIVER ON INDWELLING URINARY CATHETER MANAGEMENT INCLUDING CARE OF CATHETER, SIGN AND SYMPTOMS OF COMPLICATIONS, PERINEAL CARE, TUBE AND BAG PLACEMENT, PREVENTION OF INFECTION AND SKIN BREAKDOWN. [code = INDWELLING URINARY CATHETER MANAGEMENT; RN/MENTAL HEALTH TECHNICIAN/SECOND VP HR ASSESSMENT TO INSTRUCT PATIENT / CAREGIVER ON INDWELLING URINARY CATHETER MANAGEMENT INCLUDING CARE OF CATHETER, SIGN AND SYMPTOMS OF COMPLICATIONS, PERINEAL CARE, TUBE AND BAG PLACEMENT, PREVENTION OF INFECTION AND SKIN BREAKDOWN.] Future Scheduled Test PRN VISITS ; NUMBER OF RN/MENTAL HEALTH TECHNICIAN/SECOND VP HR ASSESSMENT VISITS: 2 RN/MENTAL HEALTH TECHNICIAN/SECOND VP HR ASSESSMENT TO PERFORM: 2 FOR THE FOLLOWING REASONS: CATHETER OBSERVATION [code = PRN VISITS; NUMBER OF RN/MENTAL HEALTH TECHNICIAN/SECOND VP HR ASSESSMENT VISITS: 2 RN/MENTAL HEALTH TECHNICIAN/SECOND VP HR ASSESSMENT TO PERFORM: 2 FOR THE FOLLOWING REASONS: CATHETER OBSERVATION] Future Scheduled Test RN/MENTAL HEALTH TECHNICIAN/SECOND VP HR ASSESSMENT TO PERFORM/TEACH PATIENT/CAREGIVER WOUND CARE PRESSURE INJURY TO RIGHT HEEL, LEFT AND RIGHT CHEEK OF BUTTOCKS IRRIGATE/CLEANSE WITH WOUND WASH APPLY CALCIUM ALGINATE PLACE BORDER GAUZE MAY APPLY SKIN BARRIER TO PERIWOUND PRN TO PREVENT MACERATION AND PROTECT PERIWOUND CHANGE DRESSING EVERY 2 DAYS AND CAREGIVER FOR DISLODGEMENT AND SOILING AND INBETWEEN AGENCY VISITS [code = RN/MENTAL HEALTH TECHNICIAN/SECOND VP HR ASSESSMENT TO PERFORM/TEACH PATIENT/CAREGIVER WOUND CARE PRESSURE INJURY [...] HOME AND RECOMMENDED DEBRIDMENT. PT TO SEE STUCCO APPLICATOR SARAVANAN. PT HAD NEW WOUNDS TO BODY. [...] End Date/Time Encounter Type Admission Type Attending [facility] Care Facility Care Department Encounter ID Discharge Date Discharge Status Discharge Condition Discharge Reason Percent Goals Met 2025-03-29 00:00:00 2025-05-27 00:00:00 Outpatient [facility] [id number]
== END 2025-05-19 23:59 | disposition home or self-care (01) ==
LOC: LAB.DROPOF 05-20 11:01
PROVIDERS: PCP Family Medicine; Visit Provider Nurse Practitioner
DX: E11.621 Type 2 diabetes mellitus with foot ulcer (principal); L97.419 Non-pressure chronic ulcer of right heel and midfoot with unspecified severity
CPT/HCPCS: 87070; 87077; 87205

== ENCOUNTER 2025-05-21 17:57 | Inpatient (IN) | payer MEDICARE, OTHER, SELFPAY ==
--- OUTSIDE RECORDS SUMMARY | 2025-05-15 09:40 | XMS_ITS | Encounter Summary ---
Author Organization [facility] Address [address] [place] [address] Care Team Providers Care Supervisor Grading Name Role Phone Paulo Brody DO Primary Care Provider [phone] Reason for Referral * Consultation (Routine) - Authorized Specialty Diagnoses / Procedures Referred By Mo zamorano Referred To Contact Diagnoses Type 2 diabetes mellitus with diabetic neuropathy, with long-term current use of insulin Elayne Campbell APRN [address] [address] Phone: tel: fax: Referral ID Status Reason Start Date Expiration Date V isits Requested Visits Authorized [id number] Authorized 05/15/2025 11/14/2026 1 1 Reason for Visit * Consultation (Routine) - Closed Specialty Diagnoses / Procedures Referred By Mo zamorano Referred To Contact Diagnoses Type 2 diabetes mellitus with diabetic neuropathy, with long-term current use of insulin Elayne Campbell APRN 8 [facility] [address] [place] [address] Phone: tel: fax: Referral ID Status Reason Start Date Expiration Date Visits Re quested Visits Authorized [id number] Closed 12/19/2024 06/20/2026 1 1 Encounter Details Date Type Department Care Team (Late st Contact Info) Description 05/15/2025 9:40 AM EST Office Visit [facility] Endocrinology [address] [place] [address] Elayne Campbell, INTERACTIVE PRODUCER [address] [place] [address] Type 2 diabetes mellitus with diabetic neuropathy, with long-term current use of insulin (Primary Dx); Hypothyroidism, unspecified type; Neuropathy; Mixed hyperlipidemia Social History Tobacco Use Types Packs/Day Years Used Date Smoking Tobacco: Former Cigarettes 0 Q uit: 1991 Smokeless Tobacco: Former Snuff Quit: 2011 Alcohol Use Standard Drinks/Week Comments No 0 (1 standard drink = 0.6 oz pur e alcohol) PHQ-2 Answer Date Recorded Patient Health Questionnaire-2 Score 0 12/18/2024 AUDIT-C Answer Date Recorded Q1: How often do you have a drink containing alcohol? Never 12/18/2024 Q2: How many drinks containi ng alcohol do you have on a typical day when you are drinking? Patient does not drink Q3: How often do you have si x or more drinks on one occasion? Never 12/18/2024 Sex and Gender Information Value Date Recorded Sex Assigned at Not on file Legal Sex Male 7:58 PM EDT Gender Identity Not on file Sexual Orientation Not on file documented as of this encounter Miscellaneous Notes * Progress Notes - Elayne Campbell, ABNER - 05/15/2025 9:40 AM EST Subjective Adeel Nichole is a 70 y.o. male who presents for an follow up evaluation of Diabetes Mellitis Type 2. Patient was diagnosed approximately 2004. History LOC with hypoglycemia, retinopathy, legallyblind, neuropathy, past diabetic foot ulcer, hypertension, hyperlipidemia, obesity, hypothyroidism,thyroid nodule, asthma, chronic latham catheter Telehealth Statement Patient Verification Patient identity has been confirmed using name and date of ? Yes Authorizations and Agreements/Telemedicine Consent sent and consent confirmed? Yes Patient Location: Home/Other Patient confirms they are physically located in [place]? Yes If the patient is not physically located in [place], the provider has confirmed with [employer] thatthe provider is authorized to provide services in patient's stated location? N/A Provider Location: home Audio and video or audio only? Audio and video Total visit time: 30 minutes HPI -accompanied by spouse -daughter and spouse are caregivers, they do have some caregivers/nurses that assist with his home care as well -daughter or spouse gives insulin to him, they are comfortable adjusting the doses based on blood glucose and meal content as have been helping to manage his diabetes for many years -no recent A1C for review -last A1C: 5.4% December 2024, 6.6% 08/12/24 Current treatment includes intensive insulin injection program and GLP1 -Ozempic 2 mg weekly, no GI SE -Basaglar 65 units daily in AM -Humalog three times daily with meals per sliding scale 10:50>150: BG 150-200 takes 10u BG 200-250 takes 20u BG 250-300 takes 30u BG 300-350 takes 40u BG 350-400 takes 50u -failed DENNIS and metformin with SE, declined SGLT2 at previous visit- history chronic UTIs Known diabetic complications: retinopathy and peripheral neuropathy Compliance at present is estimated to be good. -injecting insulin into the abdomen, rotates injection site, denies scar tissue noted at injection site, denies insulin leakage at injection site -denies missed injections Cardiovascular risk factors: advanced age (older than 55 for men, 65 for women), diabetes mellitus,dyslipidemia, hypertension, male gender, and obesity (BMI >= 30 kg/m2) Is he on SWATI inhibitor or angiotensin II receptor sharona? No on BB, lasix, spironolactone, Isosorbide, reports good control Is he on a StatinYes -on asa, xarelto Current diet: 1 meal daily with snacking/grazing, main meal around 4pm, drinking ensure, eating yogurt, beans Current exercise: limited, bedridden Home blood sugar records: using dexcom 7 with certified substance abuse counselor therefore unable to view over , reports blood glucose range 125, no hypoglycemia -Last Eye exam: history retinopathy, legally blind, he has reported no longer seeing an eye doctor at past visits -Last Foot exam: history neuropathy- on lyrica per outside provider, reports has wound on right foot- seeing wound care, no infection, has had some toenails removed permanently, spouse and daughter check his feet regularly, history calluses, foot exam deferred due to TH visit -Last Labs: December 2024, August 2024 -recent/interval events: denies recent illness, hospital visits -seeing ballet professor next week -history of chronic UTIs (denies recent), uses indwelling catheter -has seen cardiology in the past Adeel Nichole has ketone strips: yes/no: No, no history DKA Adeel Nichole has glucagon kit: yes/no: No, no history severe low bg Hypothyroidism -Current regimen: 150 mcg Levothyroxine daily (reduced December 2024 with tsh level slightly low) -Reports good compliance -he is taking it with food and other medications -Hx of thyroid nodule, last U/S 2018 in which biopsy declined and recommended repeat U/S 1 year, patient declines -denies history radiation to neck, thyroid ablation -Last TSH: 0.335 low December 2024, 6.88 elevated August 2024 The following portions of the chart were reviewed this encounter and updated as appropriate: Tobacco Allergies Meds Problems Med Hx Surg Hx Fam Hx Review of Systems Constitutional: Negative. HENT: Negative. Eyes: Positive for visual disturbance. Legally blind Respiratory: Negative. Cardiovascular: Negative. Gastrointestinal: Negative. Endocrine: See HPI Genitourinary: Latham catheter Musculoskeletal: Positive for gait problem. Skin: Negative. Neurological: Neuropathy Psychiatric/Behavioral: Negative. Objective Physical Exam Constitutional: Appearance: Normal appearance. Comments: Visualized on video through telehealth HENT: Head: Normocephalic. Nose: Nose normal. Pulmonary: Effort: Pulmonary effort is normal. Musculoskeletal: Cervical back: Normal range of motion. Neurological: Mental Status: He is alert and oriented to person, place, and time. Psychiatric: Mood and Affect: Mood normal. Behavior: Behavior normal. Thought Content: Thought content normal. Judgment: Judgment normal. Lab Review Glucose, Plasma (mg/dL) Date Value 08/01/2023 175 (H) 09/26/2021 168 (H) 03/01/2020 208 (H) POCT Hemoglobin A1C Date Value 08/01/2023 6.9 04/16/2023 8.9 10/04/2022 5.5 % 03/25/2021 6.2 % 12/13/2020 6.3 % 08/09/2020 7.4 CO2, Plasma (mmol/L) Date Value 08/01/2023 27 09/26/2021 26 03/01/2020 29 BUN, Plasma (mg/dL) Date Value 08/01/2023 13 09/26/2021 18 03/01/2020 10 Creatinine, Plasma (mg/dL) Date Value 08/01/2023 1.09 09/26/2021 1.32 (H) 03/01/2020 1.38 (H) Assessment/Plan Diabetes Mellitis Type 2, is controlled. Rx changes: continue -Ozempic 2 mg weekly, no GI SE -Basaglar 65 units daily -Humalog three times daily with meals per sliding scale 10:50>150: BG 150-200 takes 10u BG 200-250 takes 20u BG 250-300 takes 30u BG 300-350 takes 40u BG 350-400 takes 50u -encouraged healthy diet -labs ordered (will mail outside lab order) -follow up: 3 months TH # Hypothyroidism with hx thyroid nodule -Current regimen: 150 mcg Levothyroxine daily -repeat thyroid U/S ordered at previous visit, last U/S biopsy indicated and declined -repeat TFTs # Neuropathy -stable on Lyrica per PCP -recommend daily foot checks -continue follow up with wound care -encouraged to continue with good blood glucose control to prevent disease progression # Retinopathy -legally blind - declined annual eye exams - encouraged to continue with good blood glucose control to prevent disease progression # HLD -lipid panel pending -stable on statin, continue per PCP # HTN -on BB, lasix, spironolactone -continue antihypertensives per PCP # Obesity -encouraged healthy diet for optimal glycemic control The following Diabetes education was reviewed: []SBGM to evaluate dose needs []Insulin coverage with carbohydrate intake []Site rotation [] Exercise impact on glucose levels []Driving safety related to diabetes []Sick day management []Ketone testing []Over treatment of hypoglycemia [] Hypoglycemia management [x]Call-in line use []Insulin pump pros and cons []Sensor home use []Pump class offerings []Staci phenomena []Somogyi effect [] Alcohol related to diabetes []Benefits of written records []Pre-meal Bolusing []Daily foot care [] Healthy diet and regular exercise []Long-term complications related to poor diabetes management [] Injection timing related to changes in activity/exercise I personally spent a total of minutes on this encounter. This time includes face to face with patient, counseling and discussion and/or coordination of care. Electronically signed by: Elayne Campbell APRN [facility] ENDOCRINOLOGY [address] [place]. [address] PHONE [phone] FAX: [phone] documented in this encounter Plan of Treatment Upcoming Encounters Date Type Department Care Team (Late st Contact Info) Description 08/28/2025 9:40 AM EDT Office Visit [facility] Endocrinology [address] [place] [address] Elayne Campbell APRN [address] [place] [address] Scheduled Orders Name Type Priority Associated Diagnoses Orde r Schedule Thyroid Stimulating Hormone, Plasma Lab Routine Type 2 diabetes mellitus with diabetic neuropathy, with long-term current use of insulin 1 Occurrences starting 05/15/2025 until 11/16/2026 Albumin-creatinine ratio, urine, random Lab Routine Type 2 diabetes mellitus with diabetic neuropathy, with long-term current use of insulin 1 Occurrences starting 05/15/2025 until 11/16/2026 Comprehensive Metabolic Panel, Plasma Lab Routine Type 2 diabetes mellitus with diabetic neuropathy, with long-term current use of insulin 1 Occurrences starting 05/15/2025 until 11/16/2026 Lipid Profile, Plasma Lab Routine Type 2 diabetes mellitus with diabetic neuropathy, with long-term current use of insulin 1 Occurrences starting 05/15/2025 until 11/16/2026 Hemoglobin A1c Lab Routine Type 2 diabetes mellitus with diabetic neuropathy, with long-term current use of insulin 1 Occurrences starting 05/15/2025 until 11/16/2026 Scheduled Referrals Name Type Priority Associated Diagnoses Orde r Schedule Follow Up [facility] Outpatient Referral Routine Type 2 diabetes mellitus with diabetic neuropathy, with long-term current use of insulin Expected: 08/13/2025, Expires: 11/16/2026 documented as of this encounter Visit Diagnoses Diagnosis Type 2 diabetes mellitus with diabetic neuropathy, with long-term current use of insulin- Primary Hypothyroidism, unspecified type Neuropathy Mononeuritis of unspecified site Mixed hyperlipidemia documented in this encounter Additional Health Concerns Assessment Noted Time A fall risk assessment has been complete d for the patient 11/27/2023 3:20 PM EDT A Body Mass Index follow-up plan has been documented for the patient 05/15/2025 10:09 AM EST documented as of this encounter Care Teams Supervisor Grading Relationship Specialty Start Date End Date Paulo Brody DO [address] [place] [address] PCP - General 08/01/23 documented as of this encounter
--- OUTSIDE RECORDS SUMMARY | 2025-05-15 09:40 | XMS_ITS | Encounter Summary ---
Author Organization [facility] Address [address] [place] [address] Care Team Providers Care Airline Stewardess Name Role Phone Paulo Brody DO Primary Care Provider [phone] Reason for Referral * Consultation (Routine) - Authorized Specialty Diagnoses / Procedures Referred By Mo zamorano Referred To Contact Diagnoses Type 2 diabetes mellitus with diabetic neuropathy, with long-term current use of insulin lEayne Cambpell APRN [address] [address] Phone: tel: fax: Referral ID Status Reason Start Date Expiration Date V isits Requested Visits Authorized [id number] Authorized 05/15/2025 11/14/2026 1 1 Reason for Visit * Consultation (Routine) - Closed Specialty Diagnoses / Procedures Referred By Mo zamorano Referred To Contact Diagnoses Type 2 diabetes mellitus with diabetic neuropathy, with long-term current use of insulin Elayne Campbell APRN 3 [facility] [address] [place] [address] Phone: tel: fax: Referral ID Status Reason Start Date Expiration Date Visits Re quested Visits Authorized [id number] Closed 12/19/2024 06/20/2026 1 1 Encounter Details Date Type Department Care Team (Late st Contact Info) Description 05/15/2025 9:40 AM EST Office Visit [facility] Endocrinology [address] [place] [address] Elayne Campbell, DIRECTOR INDUSTRIAL NURSING [address] [place] [address] Type 2 diabetes mellitus with [...] Patient confirms they are physically located in [place]? Yes If the patient is not physically located in [place], the provider has confirmed with [employer] [...] blood sugar records: using dexcom 7 with market research specialist therefore unable to view over , reports [...] events: denies recent illness, hospital visits -seeing hydroelectric systems technician next week -history of chronic UTIs (denies [...] care. Electronically signed by: Elayne Campbell APRN [facility] ENDOCRINOLOGY [address] [place]. [address] PHONE [phone] FAX: [phone] documented in this encounter Plan of Treatment Upcoming Encounters Date Type Department Care Team (Late st Contact Info) Description 08/28/2025 9:40 AM EDT Office Visit [facility] Endocrinology [address] [place] [address] Elayne Campbell APRN [address] [place] [address] Scheduled Orders Name Type Priority Associated [...] Associated Diagnoses Orde r Schedule Follow Up [facility] Outpatient Referral Routine Type 2 diabetes [...] documented as of this encounter Care Teams Airline Stewardess Relationship Specialty Start Date End Date Paulo Brody DO [address] [place] [address] PCP - General 08/01/23 documented as of this encounter
[2025-05-21] VITALS (12 sets, daily range): BP systolic 90–113; BP diastolic 44–59; PULSE 65–78; RESP 10–12; TEMP 34.3–35.8; O2SAT 98–100; BMI 44.1; BMI 25.4
--- NOTE | 2025-05-21 18:09 | XR_ITS ---
PROCEDURE INFORMATION: Exam: XR Left Foot Exam date and time: 05/21/2025 7:54 PM Age: 70 years old Clinical indication: Pain; Foot; Left; Additional info: Eval for osteomyelitis TECHNIQUE: Imaging protocol: Radiologic exam of the left foot. Views: 3 or more views. COMPARISON: US Lower Arterial 11/04/2018 7:50 AM FINDINGS: Bones/joints: Disuse osteopenia. No convincing plain film evidence of osteomyelitis. Soft tissues: Normal. IMPRESSION: Disuse osteopenia. No convincing plain film evidence of osteomyelitis.
--- NOTE | 2025-05-21 18:09 | XR_ITS ---
PROCEDURE INFORMATION: Exam: XR Right Foot Exam date and time: 05/21/2025 7:54 PM Age: 70 years old Clinical indication: Pain; Foot; Right; Additional info: Eval for osteomyelitis TECHNIQUE: Imaging protocol: Radiologic exam of the right foot. Views: 3 or more views. COMPARISON: US Lower Arterial 11/04/2018 7:50 AM FINDINGS: Bones/joints: Disuse osteopenia. No convincing plain film evidence of osteomyelitis. Consider MRI. Soft tissues: Normal. IMPRESSION: Disuse osteopenia. No convincing plain film evidence of osteomyelitis. Consider MRI.
--- NOTE | 2025-05-21 18:11 | XR_ITS ---
PROCEDURE INFORMATION: Exam: XR Chest Exam date and time: 05/21/2025 7:54 PM Age: 70 years old Clinical indication: Other: Hypotension TECHNIQUE: Imaging protocol: Radiologic exam of the chest. Views: 1 view. COMPARISON: CT ANGIO CHEST PE PROTOCOL 05/21/2025 7:45 PM FINDINGS: Lungs: Unremarkable. No consolidation. Pleural spaces: Unremarkable. No pleural effusion. No pneumothorax. Heart/Mediastinum: Unremarkable. No cardiomegaly. Bones/joints: Unremarkable. IMPRESSION: No acute findings.
--- OUTSIDE RECORDS SUMMARY | 2025-05-21 18:17 | XMS_ITS | Encounter Summary ---
Author Organization Healthcare Address [address] [place] [address] Care Team Providers Care Motor And Generator Assembler Name Role Phone Paulo Brody Primary Care Provider [phone] Encounter Details Date Type Department Care Team (Late st Contact Info) Description [facility] [address] [place] [phone] Pierce Mckeon Social History Tobacco Use Types [...] 08/28/2025 9:40 AM EDT [facility] [address] [place] [phone] Elayne Campbell, WATER COMMISSIONER [address] [facility] [address] [place] [address] documented as of this encounter Visit Diagnoses Not on filedocumented in this encounter Additional Health Concerns Assessment Noted Time A fall risk assessment has been complete d for the patient 11/27/2023 3:20 PM EDT A Body Mass Index follow-up plan has been documented for the patient 12/19/2024 10:39 AM EDT documented as of this encounter Care Teams Motor And Generator Assembler Relationship Specialty Start Date End Date Paulo Brody DO [address] [place] [address] PCP - General 08/01/23 documented as of this encounter
--- OUTSIDE RECORDS SUMMARY | 2025-05-21 18:17 | XMS_ITS | Encounter Summary ---
Author Organization Healthcare Address [address] [place] [address] Care Team Providers Care Cryptologist Name Role Phone Paulo Brody Primary Care Provider [phone] Encounter Details Date Type Department Care Team (Late st Contact Info) Description 03/24/2025 Orders Only [facility] Endocrinology [address] [place] [address] Elayne Campbell S, SUMMER CHILD CAREGIVER [address] [facility] [address] [place] [address] Social History Tobacco Use Types [...] 08/28/2025 9:40 AM EDT [facility] [address] [place] [address] Elayne Campbell, SUMMER CHILD CAREGIVER [address] [facility] [address] [place] [address] documented as of this encounter Visit Diagnoses Not on filedocumented in this encounter Additional Health Concerns Assessment Noted Time A fall risk assessment has been complete d for the patient 11/27/2023 3:20 PM EDT A Body Mass Index follow-up plan has been documented for the patient 12/19/2024 10:39 AM EDT documented as of this encounter Care Teams Cryptologist Relationship Specialty Start Date End Date Paulo Brody DO [address] [place] [address] PCP - General 08/01/23 documented as of this encounter
--- OUTSIDE RECORDS SUMMARY | 2025-05-21 18:17 | XMS_ITS | Encounter Summary ---
Author Organization [facility] ([place], [place], [place], [place], [place]) Address [address] [place] [address] Care Team Providers Care Program Manufacturing Leader Name Role Phone Unavailable Primary Care Provider Unavailabl e Encounter Details Date Type Department Care Team (Late st Contact Info) Description 12/31/2024 Lab Requisition [facility] [address] [place] [phone] Social History Tobacco Use Types Packs/Day [...] Do you speak a language other than Croatian at [facility]? No 09/22/2023 Do you want help [...]
--- OUTSIDE RECORDS SUMMARY | 2025-05-21 18:17 | XMS_ITS | Clinical Summary ---
Author Organization [facility] Address [address] [place] [address] Care Team Providers Care Amalgamator Name Role Phone System, Provider Not In [...] therelease of HIV test results or diagnoses. [id number] Allergies No known active allergies Medications [...] Advance Directives For more information, please contact: [phone] Documents on File Type Date Recorded Patient Scientific Programmer Analyst Expl anation Durable Power of Aerospace Mechanic - scan 08/25/2022 11:34 PM * DNRCC-A (Latest Code Status on File) Date Activated Date Inactivated Comments 08/26/2022 5:45 AM 08/26/2022 11:12 PM Okay for in tubation * Full Code Date Activated Date Inactivated Comments 08/26/2022 5:40 AM 08/26/2022 5:45 AM Care Teams Amalgamator Relationship Specialty Start Date End Date System, Provider Not In PCP - General 08/25/22
--- OUTSIDE RECORDS SUMMARY | 2025-05-21 18:17 | XMS_ITS | Encounter Summary ---
Author Organization [facility] Address [address] [place] [address] Care Team Providers Care Insurance Specialist Name Role Phone Paulo Brody Primary Care Provider Reason for Visit * Reason Onset Date Comments HCN - Patient Message 05/21/2025 Encounter Details Date Type Department Care Team (Late st Contact Info) Description 05/21/2025 Telephone [facility] Endocrinology [address] [place] [address] Elayne Campbell, SUPERVISING EDITOR NEWS REEL [address] [facility] [address] [place] [address] HCN - Patient Message Social History Tobacco Use Types Packs/Day Years [...] encounter Miscellaneous Notes * Telephone Encounter - Naz Willingham - 05/21/2025 2:52 PM EST Clinical Concern/Question Reason for Call: Elayne with pts home health, she is calling to let us know that she saw a letter about a blood draw that pt is suppose to have. She wants to know if she needs to draw those or take him to a lab to draw them.She says that if she needs to draw the order please fax to # [phone] Best contact number: Other: [phone] Optimal time of day to reach caller: ANYTIME Additional comments/information from caller: None Note: Please do not reply to this message. Follow-up communication and further actions as a result of this message need to be communicated with the patient directly, if the patient is not active onMyChart. If the patient is active on MyChart, they will receive notification of the communication/outcome via [employer]. documented in this encounter Plan of Treatment Upcoming Encounters Date Type Department Care Team (Late st Contact Info) Description 08/28/2025 9:40 AM EDT Office Visit [facility] Endocrinology [address] [place] [phone] Elayne Campbell S, SUPERVISING EDITOR NEWS REEL [address] [place] [phone] documented as of this encounter Visit Diagnoses Not on filedocumented in this encounter Additional Health Concerns Assessment Noted Time A fall risk assessment has been complete d for the patient 11/27/2023 3:20 PM EDT A Body Mass Index follow-up plan has been documented for the patient 05/15/2025 10:09 AM EST documented as of this encounter Care Teams Insurance Specialist Relationship Specialty Start Date End Date Paulo Brody DO [address] [place] [address] PCP - General 08/01/23 documented as of this encounter
--- OUTSIDE RECORDS SUMMARY | 2025-05-21 18:17 | XMS_ITS | Encounter Summary ---
Author Organization [facility] Address [address] [place] [address] Care Team Providers Care Material Worker Name Role Phone Paulo Brody Primary Care Provider [phone] Encounter Details Date Type Department Care Team (Late st Contact Info) Description 05/15/2025 Telephone [facility] Endocrinology [address] [place] [address] Elayne Campbell, FILE KEEPER [address] [facility] [address] [place] [address] Social History Tobacco Use Types [...] 9:40 AM EDT Office Visit [facility] Endocrinology [address] [place] [phone] Elayne Campbell APRN [address] [facility] [address] [place] [phone] documented as of this encounter Visit Diagnoses Not on filedocumented in this encounter Additional Health Concerns Assessment Noted Time A fall risk assessment has been complete d for the patient 11/27/2023 3:20 PM EDT A Body Mass Index follow-up plan has been documented for the patient 05/15/2025 10:09 AM EST documented as of this encounter Care Teams Material Worker Relationship Specialty Start Date End Date Paulo Brody DO [address] [place] [id number] PCP - General 08/01/23 documented as of this encounter
--- OUTSIDE RECORDS SUMMARY | 2025-05-21 18:17 | XMS_ITS | Encounter Summary ---
Author Organization [employer] ([place], [place], [place], [place], [place]) Address [address] [place] [address] Care Team Providers Care Aviation Technician Name Role Phone Unavailable Primary Care Provider Unavailabl e Encounter Details Date Type Department Care Team (Late st Contact Info) Description 12/31/2024 Lab Requisition [facility] [address] [place] [address] Elayne Campbell, ABNER [address] [place] [address] Social History Tobacco Use Types [...] Do you speak a language other than Citizen Of [place] at [facility]? No 09/22/2023 Do you want help with [...] - 3.740 uIU/mL 12/31/2024 5:33 PM EDT [facility] Blood 12/31/2024 10:3 1 AM EDT 12/31/2024 5:02 PM EDT Elayne Campbell TRANSMISSION SUPERVISOR LAB BLOOD ORDERABLES Final Re sult Performing Organization Address City/[facility]/ZIP Co de Phone Number [facility] [address] [place] [address], [facility] [phone] * T4 (12/31/2024 10:31 AM EDT) T4, Total 13.3 4.7 - 13.3 ug/dL 12/31/2024 5:33 PM EDT [facility] Blood 12/31/2024 10:3 1 AM EDT 12/31/2024 5:02 PM EDT Elayne Campbell TRANSMISSION SUPERVISOR LAB BLOOD ORDERABLES Final Re sult Performing Organization Address [place] de Phone Number [facility] [address] [place] [address] * Hemoglobin A1c (12/31/2024 10:31 AM EDT) Hemoglobin A1C 5.4 % 12/31/2024 5:39 PM EDT [facility] Comment: Hemoglobin A1C levels are related to mean glucose during the preceding 2-3 months. Less than 7% demonstrates glycemic control in diabetic patients. Hemoglobin AlC % Suggested Diagnosis > or = 6.5 Diabetic 5.7 - 6.4 Prediabetic <5.7 Non-diabetic eAVG Glucose 108.28 mg/dL 12/31/2024 5:39 PM EDT [facility] Blood 12/31/2024 10:3 1 AM EDT 12/31/2024 5:02 PM EDT Result [facility] Elayne Campbell TRANSMISSION SUPERVISOR LAB BLOOD ORDERABLES Final Re sult Performing Organization Address City/[facility] Co de Phone Number [facility] [address] [place] [address], [facility] [phone] documented in this encounter Visit Diagnoses Not on filedocumented in this encounter Additional Health Concerns Infection Onset Date Last Indicated Resolved Time MDR E.coli (C) Comment:ESBL/MDR 09/26/2023 09/26/2023 documented as of this encounter
--- OUTSIDE RECORDS SUMMARY | 2025-05-21 18:17 | XMS_ITS | Clinical Summary ---
[facility] Organization [facility] Address [address] [place] [address] Care Team Providers Care Training Systems Officer Name Role Phone Provider, No Known Primary [...] AAA SCREEN ONCE Completed 08/25/2022, 04/30/2018 Insurance [facility] Care Teams Training Systems Officer Relationship Specialty Start Date End Date Provider, [place] [address] PCP - General 06/14/17
--- OUTSIDE RECORDS SUMMARY | 2025-05-21 18:17 | XMS_ITS | Referral Summary ---
Author Organization [employer] ([place], [place], [place], [place], [place]) Address [address] [place] [address] Care Team Providers Care Protective Signal Superintendent Name Role Phone Unavailable Primary Care Provider Unavailabl e Encounters Date Type Department Care Team Description 05/21/2025 Lab Requisition [facility] [address] [place] [address] Clifton Parr MD 05/14/2025 Lab Requisition [facility] [address] [place] [address] Clifton Parr MD Urinary tract infection, site not specified 05/14/2025 Travel 04/03/2025 Lab Requisition [facility] [address] [place] [address] Clifton Parr MD from Last 3 Months [...] (40 mg total) by mouth daily. 03/29/20 Active isosorbide mononitrate (IMDUR) 60 MG 24 hr tablet Take 1 tablet (60 mg total) by mouth daily. 07/20/19 Active levothyroxine (SYNTHROID, LEVOTHROID) 175 MCG tablet [...] the past 12 months, has t he Possibility Space, gas, oil, or water [employer] threatened to shut off services in your [...] Do you speak a language other than [place]ican at [facility]? No 09/22/2023 Do you want help [...] Procedure Name Priority Date/Time Associated Diagnosis Comments [facility] CBC SCAN Routine 05/21/2025 3:30 PM EST CBC HEMOGRAM (SJ-BKR) Routine 05/21/2025 3:30 PM EST URINALYSIS MICROSCOPIC Routine 05/14/2025 2:30 AM EST Urinary tract infection, site not specified URINALYSIS, REFLEX MICROSCOPIC AND CULTURE IF INDICATED Routine 05/14/2025 2:30 AM EST Urinary tract infection, site not specified WOUND CULTURE + GRAM STAIN Routine 04/03/2025 8:30 AM EDT STOOL CULTURE Routine 04/03/2025 8:30 AM EDT C DIFFICLE Routine 04/03/2025 8:30 AM EDT from Last 3 Months Results * (ABNORMAL) CBC Scan (05/21/2025 3:30 PM EST) Platelet Estimate Adequate Adequate 05/21/2025 4:03 PM EST [facility] RBC Morphology abnormal(A) Normal 4:03 PM EST [facility] Anisocytosis 2+ 05/21/2025 4:03 PM EST [facility] Hypochromia 2+ 05/21/2025 4:03 PM EST [facility] Microcytes 3+ 05/21/2025 4:03 PM EST [facility] Blood 05/21/2025 3:30 PM EST 05/21/2025 3:34 PM EST us Clifton Parr MD LAB BLOOD ORDERABLES Final R esult [facility] [address] [place] [address] * (ABNORMAL) CBC - Hemogram (SJ-BKR) (05/21/2025 3:30 PM EST) WBC 5.0 4.8 - 10.8 K/ L 05/21/2025 4:02 PM EST [facility] RBC 2.79(L) 3.80 - 5.20 M/ L 05/21/2025 4:02 PM [facility] Hemoglobin 4.7(LL) 12.8 - 17.4 GM/DL 05/21/2025 4:02 PM [facility] Hematocrit 19.0(L) 39.0 - 51.0 % 05/21/2025 4:02 PM [facility] MCV 68(L) 81 - 101 fL 05/21/2025 4:02 PM [facility] MCH <20.0(L) 27.0 - 34.0 pg 05/21/2025 4:02 PM [facility] MCHC <28.0(L) 32.0 - 36.0 GM/DL 05/21/2025 4:02 PM [facility] RDW 24.7(H) 11.5 - 14.5 % 05/21/2025 4:02 PM [facility] Platelets 342 150 - 400 K/CU MM 05/21/2025 4:02 PM [facility] MPV 10.2 9.4 - 12.4 fL 05/21/2025 4:02 PM [facility] Blood 05/21/2025 3:30 PM EST 05/21/2025 3:34 PM EST us Clifton Parr MD LAB BLOOD ORDERABLES Final R esult [facility] [address] [place] [address] * (ABNORMAL) Urinalysis, Reflex Microscopic and Culture If Indicated (05/14/2025 2:30 AM EST) Color, UA Straw 05/14/2025 4:31 PM [facility] Clarity, UA Clear 05/14/2025 4:31 PM [facility] Specific [place], UA <=1.005 1.002 - 1.030 05/14/2025 4:31 PM [facility] pH, UA 7.0 5.0 - 9.0 05/14/2025 4:31 PM EST [facility] Leukocytes, UA 3+(A) Negative 05/14/2025 4:31 PM EST [facility] Nitrite, UA Negative Negative 05/14/2025 4:31 PM EST [facility] Protein, UA Negative Negative 05/14/2025 4:31 PM EST [facility] Glucose, UA Negative Negative 05/14/2025 4:31 PM EST [facility] Ketones, UA Negative Negative 05/14/2025 4:31 PM [facility] Bilirubin, UA Negative Negative 05/14/2025 4:31 PM EST [facility] Blood, UA Negative Negative 05/14/2025 4:31 PM [facility] Urobilinogen, UA 0.2 mg/dL Normal 05/14/2025 4:31 PM [facility] Specimen Source random 05/14/2025 4:31 PM [facility] Urine 05/14/2025 2:30 AM EST 05/14/2025 4:24 PM EST Clifton Parr MD URINE ORDERABLES Final Resul t [facility] [address] [place] [address] * (ABNORMAL) Urinalysis Microscopic Only (05/14/2025 2:30 AM EST) WBC, UA 5-10(A) None Seen, Occasional , 0-5 /HPF 05/14/2025 4:51 PM EST [facility] RBC, UA 0-5(A) None Seen, Rare /HPF 05/14/2025 4:51 PM EST [facility] Bacteria, UA 2+(A) None Seen 05/14/2025 4:51 PM EST [facility] SQUAMOUS EPITHELIAL 0-5(A) None Seen, Rare /HPF 05/14/2025 4:51 PM EST [facility] Urine 05/14/2025 2:30 AM EST 05/14/2025 4:24 PM EST us Clifton Parr MD URINE ORDERABLES Final Resul t [facility] [address] [place] [address], [facility] [phone] * Stool Culture (04/03/2025 8:30 AM EDT) Result No Salmonella, Shigella, Campylobacter , E.coli: 0157 screen negative. Normal enteric asaf isolated 04/06/2025 7:[address] [facility] Feces FECES / Unknown 04/03/2025 8 :30 AM EDT 04/03/2025 11:54 AM EDT us Clifton Parr MD MICROBIOLOGY - GENERAL ORDER NANI Final Result [facility] [address] [place], [place] [address] [phone] * C Difficle (04/03/2025 8:30 AM EDT) CDIFF RESULT Negative Negative 04/03/2025 3:[address] [facility] C. Difficile Ribotype 027 Presumptive Negative Presumptive Negative 04/03/2025 3:[address] [facility] Stool 04/03/2025 8:30 AM EDT 04/03/2025 11:[address] [facility] - 04/03/2025 3:43 PM EDT [employer] [...] FLUIDS AND STOOLS ORDER NANI Final Result [facility] [address] [place] [address] * (ABNORMAL) Wound Culture + Gram Stain (04/03/2025 8:30 AM EDT) Result Heavy Growth Staphylococcus aureus(A) 04/07/2025 7:36 AM [facility] Result Moderate Growth Klebsiella aerogenes(A) 04/07/2025 7:36 AM [facility] Result Heavy Growth Coagulase negative Staphylococcus(A) 04/07/2025 7:36 AM [facility] Result Heavy Growth Corynebacterium species(A) 04/07/2025 7:36 AM [facility] Gram Stain Result Few WBCs 04/07/2025 7:36 AM [facility] Gram Stain Result Many gram positive cocci in pairs and clusters 04/07/2025 7:36 AM [facility] Gram Stain Result Rare gram positive rods 04/07/2025 7:36 AM [facility] Wound HEEL STRUCTURE / Unknown 04/03/2025 8:30 AM EDT 04/03/2025 11:[address] [facility] - 04/07/2025 7:36 AM EST Mixed [...] Klebsiella aerogenes Trimethoprim + Sulfamethoxazole <=0.5/9.5: Susceptible us Clifton Parr MD MICROBIOLOGY - GENERAL ORDER NANI Final Result [facility] [address] [place] [address], [facility] [phone] [facility] [address] [place] [address], [facility] [phone] from Last 3 Months Additional Health Concerns Infection Onset Date Last Indicated MDR E.coli (C) Comment:ESBL/MDR 09/26/2023 09/26/2023 Insurance [facility] MEDICARE PART A B Advance Directives For more information, please contact: [phone] Documents on File Type Date Recorded Patient Caser In Expl anation Power of Transonic Engineer 09/22/2023 * DNR - Limited Additional Intervention (Latest Code Status on File) Date Activated Date Inactivated Comments 09/22/2023 6:40 PM 09/27/2023 6:02 PM
--- OUTSIDE RECORDS SUMMARY | 2025-05-21 18:17 | XMS_ITS | Clinical Summary ---
Author Organization [employer] ([place], [place], [place], [place], [place]) Address [address] [place] [address] Care Team Providers Care Video Game Animator Name Role Phone Unavailable Primary Care Provider [...] Department Care Team Description 05/21/2025 Lab Requisition [facility] [address] [place] [address] Clifton Parr MD 05/14/2025 Lab Requisition [facility] [address] [place] [address] Clifton Parr MD Urinary tract infection, site not specified 05/14/2025 Travel 04/03/2025 Lab Requisition [facility] [address] [place] [address] Clifton Parr MD from Last 3 Months [...] Do you speak a language other than Danish at [facility]? No 09/22/2023 Do you want help [...] Procedure Name Priority Date/Time Associated Diagnosis Comments [facility] CBC SCAN Routine 05/21/2025 3:30 PM EST [...] Estimate Adequate Adequate 05/21/2025 4:03 PM EST [facility] RBC Morphology abnormal(A) Normal 4:03 PM [facility] Anisocytosis 2+ 05/21/2025 4:03 PM [facility] Hypochromia 2+ 05/21/2025 4:03 PM [facility] Microcytes 3+ 05/21/2025 4:03 PM [facility] Blood 05/21/2025 3:30 PM EST 05/21/2025 3:34 PM EST us Clifton Parr MD LAB BLOOD ORDERABLES Final R esult [facility] [address] [place], [place] [address] [phone] * (ABNORMAL) CBC - Hemogram (SJ-BKR) (05/21/2025 3:30 PM EST) WBC 5.0 4.8 - 10.8 K/ L 05/21/2025 4:02 PM [facility] RBC 2.79(L) 3.80 - 5.20 M/ L 05/21/2025 4:02 PM [facility] Hemoglobin 4.7(LL) 12.8 - 17.4 GM/DL 05/21/2025 4:02 PM [facility] Hematocrit 19.0(L) 39.0 - 51.0 % 05/21/2025 4:02 PM [facility] MCV 68(L) 81 - 101 fL 05/21/2025 4:02 PM [facility] MCH <20.0(L) 27.0 - 34.0 pg 05/21/2025 4:02 PM [facility] MCHC <28.0(L) 32.0 - 36.0 GM/DL 05/21/2025 4:02 PM [facility] RDW 24.7(H) 11.5 - 14.5 % 05/21/2025 4:02 PM [facility] Platelets 342 150 - 400 K/CU MM 05/21/2025 4:02 PM [facility] MPV 10.2 9.4 - 12.4 fL 05/21/2025 4:02 PM [facility] Blood 05/21/2025 3:30 PM EST 05/21/2025 3:34 PM EST us Clifton Parr MD LAB BLOOD ORDERABLES Final R esult [facility] [address] [place] [address], [facility] [phone] * (ABNORMAL) Urinalysis, Reflex Microscopic and Culture If Indicated (05/14/2025 2:30 AM EST) Color, UA Straw 05/14/2025 4:31 PM [facility] Clarity, UA Clear 05/14/2025 4:31 PM [facility] Specific [place], UA <=1.005 1.002 - 1.030 05/14/2025 4:31 PM [facility] pH, UA 7.0 5.0 - 9.0 05/14/2025 4:31 PM [facility] Leukocytes, UA 3+(A) Negative 05/14/2025 4:31 PM [facility] Nitrite, UA Negative Negative 05/14/2025 4:31 PM [facility] Protein, UA Negative Negative 05/14/2025 4:31 PM [facility] Glucose, UA Negative Negative 05/14/2025 4:31 PM [facility] Ketones, UA Negative Negative 05/14/2025 4:31 PM [facility] Bilirubin, UA Negative Negative 05/14/2025 4:31 PM [facility] Blood, UA Negative Negative 05/14/2025 4:31 PM [facility] Urobilinogen, UA 0.2 mg/dL Normal 05/14/2025 4:31 PM [facility] Specimen Source random 05/14/2025 4:31 PM EST [facility] Urine 05/14/2025 2:30 AM EST 05/14/2025 4:24 PM EST us Clifton Parr MD URINE ORDERABLES Final Resul t Performing Organization Address [facility] Co de Phone Number [facility] [address] [place] [address] * (ABNORMAL) Urinalysis Microscopic Only (05/14/2025 2:30 AM EST) WBC, UA 5-10(A) None Seen, Occasional , 0-5 /HPF 05/14/2025 4:51 PM EST [facility] RBC, UA 0-5(A) None Seen, Rare /HPF 05/14/2025 4:51 PM EST [facility] Bacteria, UA 2+(A) None Seen 05/14/2025 4:51 PM EST [facility] SQUAMOUS EPITHELIAL 0-5(A) None Seen, Rare /HPF 05/14/2025 4:51 PM EST [facility] Urine 05/14/2025 2:30 AM EST 05/14/2025 4:24 PM EST us Clifton Parr MD URINE ORDERABLES Final Resul t Performing Organization Address [facility] Co de Phone Number [facility] [address] [place] [address] * Stool Culture (04/03/2025 8:30 AM EDT) Result No Salmonella, Shigella, Campylobacter , E.coli: 0157 screen negative. Normal enteric asaf isolated 04/06/2025 7:55 AM EST [facility] Feces FECES / Unknown 04/03/2025 8 :30 AM EDT 04/03/2025 11:54 AM EDT us Clifton Parr MD MICROBIOLOGY - GENERAL ORDER NANI Final Result Performing Organization Address City/[facility]/ZIP Co de Phone Number [facility] [address] [place] [address], [facility] [phone] * C Difficle (04/03/2025 8:30 AM EDT) CDIFF RESULT Negative Negative 04/03/2025 3:43 PM EDT [facility] C. Difficile Ribotype 027 Presumptive Negative Presumptive Negative 04/03/2025 3:43 PM EDT [facility] Stool 04/03/2025 8:30 AM EDT 04/03/2025 11:54 AM EDT Narrative [facility] - 04/03/2025 3:43 PM EDT [...] FLUIDS AND STOOLS ORDER NANI Final Result Performing Organization Address City/[facility]/ZIP Co de Phone Number [facility] [address] [place] [address], [facility] [phone] * (ABNORMAL) Wound Culture + Gram Stain (04/03/2025 8:30 AM EDT) Result Heavy Growth Staphylococcus aureus(A) 04/07/2025 7:36 AM EST [facility] Result Moderate Growth Klebsiella aerogenes(A) 04/07/2025 7:36 AM EST [facility] Result Heavy Growth Coagulase negative Staphylococcus(A) 04/07/2025 7:36 AM EST [facility] Result Heavy Growth Corynebacterium species(A) 04/07/2025 7:36 AM EST [facility] Gram Stain Result Few WBCs 04/07/2025 7:36 AM EST [facility] Gram Stain Result Many gram positive cocci in pairs and clusters 04/07/2025 7:36 AM EST [facility] Gram Stain Result Rare gram positive rods 04/07/2025 7:36 AM EST [facility] Wound HEEL STRUCTURE / Unknown 04/03/2025 8:30 AM EDT 04/03/2025 11:54 AM EDT Narrative [facility] - 04/07/2025 7:36 AM EST [...] MICROBIOLOGY - GENERAL ORDER NANI Final Result [facility] [address] [place] [address], [facility] [phone] [facility] [address] [place] [address], [facility] [phone] from Last 3 Months Additional Health Concerns Infection Onset Date Last Indicated MDR E.coli (C) Comment:ESBL/MDR 09/26/2023 09/26/[address] [facility] MEDICARE PART A B Advance Directives For more information, please contact: [phone] Documents on File Type Date Recorded Patient Checker/Stocker Expl anation Power of Banquet Bartender 09/22/2023 * DNR - Limited Additional Intervention (Latest Code Status on File) Date Activated Date Inactivated Comments 09/22/2023 6:40 PM 09/27/2023 6:02 PM
--- OUTSIDE RECORDS SUMMARY | 2025-05-21 18:18 | XMS_ITS | Encounter Summary ---
Author Organization [employer] ([place], [place], [place], [place], [place]) Address [address] [place] [address] Care Team Providers Care Horse Racer Name Role Phone Unavailable Primary Care Provider [...] Do you speak a language other than [place] at [facility]? No 09/22/2023 Do you want help with [...]
--- OUTSIDE RECORDS SUMMARY | 2025-05-21 18:18 | XMS_ITS | Encounter Summary ---
Author Organization [employer] ([place], [place], [place], [place], [place]) Address [address] [place] [address] Care Team Providers Care Enthone Solder Stripper Name Role Phone Unavailable Primary Care Provider Unavailabl e Encounter Details Date Type Department Care Team (Late st Contact Info) Description 04/03/2025 Lab Requisition [facility] [address] [place] [address] Clifton Parr MD [address] [place] [address] Social History Tobacco Use Types [...] Do you speak a language other than Bhutanese at [facility]? No 09/22/2023 Do you want help [...] Heavy Growth Staphylococcus aureus(A) 04/07/2025 7:36 AM [facility] Result Moderate Growth Klebsiella aerogenes(A) 04/07/2025 7:36 AM [facility] Result Heavy Growth Coagulase negative Staphylococcus(A) 04/07/2025 7:36 AM EST [facility] Result Heavy Growth Corynebacterium species(A) 04/07/2025 7:36 AM EST [facility] Gram Stain Result Few WBCs 04/07/2025 7:36 AM EST [facility] Gram Stain Result Many gram positive cocci in pairs and clusters 04/07/2025 7:36 AM EST [facility] Gram Stain Result Rare gram positive rods 04/07/2025 7:36 AM EST [facility] Wound HEEL STRUCTURE / Unknown 04/03/2025 8:30 AM EDT 04/03/2025 11:54 AM EDT [facility] - 04/07/2025 7:36 AM EST Mixed [...] MICROBIOLOGY - GENERAL ORDER NANI Final Result [facility] [address] [place] [address] [facility] [address] [place] [address] * Stool Culture (04/03/2025 8:30 AM EDT) Result No Salmonella, Shigella, Campylobacter , E.coli: 0157 screen negative. Normal enteric asaf isolated 04/06/2025 7:55 AM EST [facility] Feces FECES / Unknown 04/03/2025 8 :30 AM EDT 04/03/2025 11:54 AM EDT Clifton Parr MD MICROBIOLOGY - GENERAL ORDER NANI Final Result Performing Organization Address [facility]/ZIP Co de Phone Number [facility] [address] [phone] * C Difficle (04/03/2025 8:30 AM EDT) CDIFF RESULT Negative Negative 04/03/2025 3:43 PM EDT [facility] C. Difficile Ribotype 027 Presumptive Negative Presumptive Negative 04/03/2025 3:43 PM EDT [facility] Stool 04/03/2025 8:30 AM EDT 04/03/2025 11:54 AM EDT Narrative [facility] - 04/03/2025 3:43 PM [...] FLUIDS AND STOOLS ORDER NANI Final Result [facility] [address] [phone] documented in this encounter Visit Diagnoses Not on filedocumented in this encounter Additional Health Concerns Infection Onset Date Last Indicated Resolved Time MDR E.coli (C) Comment:ESBL/MDR 09/26/2023 09/26/2023 documented as of this encounter
--- OUTSIDE RECORDS SUMMARY | 2025-05-21 18:18 | XMS_ITS | Clinical Summary ---
Author Organization [facility] Address [address] [place] [address] Care Team Providers Care Pet Care Assistant Name Role Phone Paulo Brody Primary Care Provider [phone] Allergies Active Allergy Reactions Criticality Noted Date [...] time each day. 11/26/19 24 Active Nystop 352310 UNIT/GM powder APPLY TOPICALLY TO THE AFFECTED [...] Date Type Department Care Team Description 05/21/2025 Telephone [facility] [address] [place] [address] Elayne Campbell APRN HCN - Patient Message 05/15/2025 9:40 AM EST Office Visit [facility] [address] [place] [address] Elayne Campbell, RUG TOUCH UP PAINTER Type 2 diabetes mellitus with diabetic neuropathy, with long-term current use of insulin (Primary Dx); Hypothyroidism, unspecified type; Neuropathy; Mixed hyperlipidemia 05/15/2025 Telephone [facility] [address] [place] [address] Elayne Campbell APRN 03/24/2025 Orders Only [facility] [address] [place] [address] Elayne Campblel APRN 03/24/2025 Telephone [facility] [address] [place] [address] Pierce Mckeon from Last 3 Months Immunizations [...] 1991 Smokeless Tobacco: Former Snuff Quit: 2011 Tobacco Cessation:Counseling Given: Not Answered Alcohol Use [...] 08/28/2025 9:40 AM EDT Office Visit [facility] [address] [place] [address] Elayne Campbell, RUG TOUCH UP PAINTER [address] [place] [address] Health Maintenance Due Date Last Done Comments [facility]-Medicare Annual Wellness (AWV) 1955 [facility]-Infant/Child/Adol SDOH Screenings 1955 Diabetes: Dental Exam 1967 [...] 2007 [facility]-Abdominal Aortic Aneurysm (AAA) Screening 2022 [id number] Vaccine (3 - season) 2025 04/20/2021, 09/30/2020 [facility]-Influenza Vaccine [...] Blood Venous blood specimen / Unknown Elayne Campbell RUG TOUCH UP PAINTER LAB BLOOD ORDERABLES Final Result * Acute Hepatitis Panel (04/30/2018 10:09 AM EST) Hepatitis B Surf Antigen NEGATIVE Reference Value: Negative [facility] Hepatitis C Antibody NEGATIVE Reference Range: Negative [facility] Hepatitis A Antibody IgM NEGATIVE Reference Value: Negative [facility] External Hepatitis B Core IgM (HBCM) NEGATIVE Reference Value: Negative [facility] 04/30/2018 10:0 9 AM EST 04/30/2018 10:17 AM EST Sara Ching RUG TOUCH UP PAINTER LAB BLOOD ORDERABLES Final R esult [facility] from Last 3 Months or Most Recently Relevant to Health Maintenance Insurance MEDICARE [facility] Advance Directives Documents on File Type Date Recorded Patient Customer Order Clerk Expl anation Power of Due Diligence Coordinator 05/20/2024 power of a ttorney Care Teams Pet Care Assistant Relationship Specialty Start Date End Date Paulo Brody DO [address] [place] [address] PCP - General 08/01/23
--- OUTSIDE RECORDS SUMMARY | 2025-05-21 18:18 | XMS_ITS | Encounter Summary ---
Author Organization [employer] ([place], [place], [place], [place], [place]) Address [address] [place] [address] Care Team Providers Care Technical Testing Engineer Name Role Phone Unavailable Primary Care Provider Unavailabl e Encounter Details Date Type Department Care Team (Late st Contact Info) Description 05/14/2025 Lab Requisition [facility] [address] [place] [phone] Clifton Parr MD [address] [place] [address] Urinary tract infection, site not specified Social [...] Do you speak a language other than [place] at [facility]? No 09/22/2023 Do you want help with [...] , 0-5 /HPF 05/14/2025 4:51 PM EST [facility] RBC, UA 0-5(A) None Seen, Rare /HPF 05/14/2025 4:51 PM EST [facility] Bacteria, UA 2+(A) None Seen 05/14/2025 4:51 PM EST [facility] SQUAMOUS EPITHELIAL 0-5(A) None Seen, Rare /HPF 05/14/2025 4:51 PM EST [facility] Urine 05/14/2025 2:30 AM EST 05/14/2025 4:24 PM EST us Clifton Parr MD URINE ORDERABLES Final Resul t [facility] [address] [phone] * (ABNORMAL) Urinalysis, Reflex Microscopic and Culture If Indicated (05/14/2025 2:30 AM EST) Color, UA Straw 05/14/2025 4:31 PM [facility] Clarity, UA Clear 05/14/2025 4:31 PM [facility] Specific [place], UA <=1.005 1.002 - 1.030 05/14/2025 4:31 PM EST [facility] pH, UA 7.0 5.0 - 9.0 05/14/2025 4:31 PM [facility] Leukocytes, UA 3+(A) Negative 05/14/2025 4:31 PM EST [facility] Nitrite, UA Negative Negative 05/14/2025 4:31 PM EST [facility] Protein, UA Negative Negative 05/14/2025 4:31 PM [facility] Glucose, UA Negative Negative 05/14/2025 4:31 PM EST [facility] Ketones, UA Negative Negative 05/14/2025 4:31 PM [facility] Bilirubin, UA Negative Negative 05/14/2025 4:31 PM EST [facility] Blood, UA Negative Negative 05/14/2025 4:31 PM EST [facility] Urobilinogen, UA 0.2 mg/dL Normal 05/14/2025 4:31 PM EST [facility] Specimen Source random 05/14/2025 4:31 PM EST [facility] Urine 05/14/2025 2:30 AM EST 05/14/2025 4:24 PM EST us Clifton Parr MD URINE ORDERABLES Final Resul t [facility] [address] [place] [address] documented in this encounter Visit Diagnoses Diagnosis Urinary tract infection, site not specified documented in this encounter Additional Health Concerns Infection Onset Date Last Indicated Resolved Time MDR E.coli (C) Comment:ESBL/MDR 09/26/2023 09/26/2023 documented as of this encounter
--- OUTSIDE RECORDS SUMMARY | 2025-05-21 18:18 | XMS_ITS | Encounter Summary ---
Author Organization [employer] ([place], [place], [place], [place], [place]) Address [address] [place] [address] Care Team Providers Care Equipment Washer Name Role Phone Unavailable Primary Care Provider Unavailabl e Encounter Details Date Type Department Care Team (Late st Contact Info) Description 05/21/2025 Lab Requisition [facility] [address] [place] [phone] Clifton Parr MD [address] [place] [address] Social History Tobacco Use Types [...] Do you speak a language other than Azerbaijani at [facility]? No 09/22/2023 Do you want help [...] Procedure Name Priority Date/Time Associated Diagnosis Comments [facility] CBC SCAN Routine 05/21/2025 3:30 PM EST CBC HEMOGRAM (-BKR) Routine 05/21/2025 3:30 PM EST documented in this encounter Results * (ABNORMAL) CBC Scan (05/21/2025 3:30 PM EST) Platelet Estimate Adequate Adequate 05/21/2025 4:03 PM EST [facility] RBC Morphology abnormal(A) Normal 4:03 PM EST [facility] Anisocytosis 2+ 05/21/2025 4:03 PM EST [facility] Hypochromia 2+ 05/21/2025 4:03 PM EST [facility] Microcytes 3+ 05/21/2025 4:03 PM [facility] Blood 05/21/2025 3:30 PM EST 05/21/2025 3:34 PM EST us Clifton Parr MD LAB BLOOD ORDERABLES Final R esult [facility] [address] [place] [id number] [phone] * (ABNORMAL) CBC - Hemogram (SJ-BKR) (05/21/2025 3:30 PM EST) WBC 5.0 4.8 - 10.8 K/ L 05/21/2025 4:02 PM [facility] RBC 2.79(L) 3.80 - 5.20 M/ L 05/21/2025 4:02 PM [facility] Hemoglobin 4.7(LL) 12.8 - 17.4 GM/DL 05/21/2025 4:02 PM [facility] Hematocrit 19.0(L) 39.0 - 51.0 % 05/21/2025 4:02 PM [facility] MCV 68(L) 81 - 101 fL 05/21/2025 4:02 PM [facility] MCH <20.0(L) 27.0 - 34.0 pg 05/21/2025 4:02 PM [facility] MCHC <28.0(L) 32.0 - 36.0 GM/DL 05/21/2025 4:02 PM [facility] RDW 24.7(H) 11.5 - 14.5 % 05/21/2025 4:02 PM [facility] Platelets 342 150 - 400 K/CU MM 05/21/2025 4:02 PM [facility] MPV 10.2 9.4 - 12.4 fL 05/21/2025 4:02 PM [facility] Blood 05/21/2025 3:30 PM EST 05/21/2025 3:34 PM EST us Clifton Parr MD LAB BLOOD ORDERABLES Final R esult [facility] [address] [phone] documented in this encounter Visit Diagnoses Not on filedocumented in this encounter Additional Health Concerns Infection Onset Date Last Indicated Resolved Time MDR E.coli (C) Comment:ESBL/MDR 09/26/2023 09/26/2023 documented as of this encounter
--- NOTE | 2025-05-21 18:42 | ECG_ITS ---
APPROVED REPORT Exam: Resting ECG HR:66 bpm ECG Measurements Heart Rate 66 AXES [place] 186 P 16 QRSd 98 QRS -12 QT 392 T 12 QTc 405 Conclusion Normal sinus rhythm without acute ST or T wave changes concerning for ischemia Electronically signed by : Oneyda James, 05/22/2025 00:55:01
[2025-05-21] MEDS: LACTATED RINGERS 1000ML 1,000 ML 999 ML IV (18:43)
[2025-05-21 18:45] LABS: Immature Granulocytes % 0.6 %; Mean Corpuscular HGB Conc 24.4 g/dL (31.8-35.4); Mean Corpuscular Hemoglobin 16.5 pg (27.0-31.2); Mean Corpuscular Volume 67.4 fl (80-94); Nucleated Red Blood Cells % 0.5 %; Platelet Count 380 K/mm3 (142-424); Red Blood Count 2.67 M/mm3 (4.60-6.20); Red Cell Distribution Width-SD 57.7 fL; White Blood Count 6.3 K/mm3 (4.8-10.8)
--- NOTE | 2025-05-21 18:52 | HMH.EDGENADL ---
Discharge Plan Disposition Patient Disposition: Admitted Condition: Fair Clinical Impressions Clinical Impression: Anemia, Sepsis Discharge ED Provider: Oneyda James General Adult HPI General Chief complaint: Weakness Stated complaint: Abnormal labs Time Seen by Provider: 05/21/25 18:06 History of Present Illness HPI narrative: Patient is a 70-year-old male with a history of paralysis in his lower extremities from unclear etiology per chart review chronic indwelling Rodriguez for the last 2 years, COPD, emphysema, diabetes who presented to the emergency department with abnormal labs. Per EMS, family noted that patient looked more unwell than usual repeat labs were obtained and patient had a hemoglobin that was 4.3 therefore patient was sent here to the emergency department to be evaluated. Patient states that he does not walk at baseline. Patient has had a Rodriguez for an extended period of time. Patient denies any urinary symptoms. Patient denies any new or worsening weakness. Patient denies any chest pain or shortness of breath. Patient denies any upper respiratory symptoms. Patient is unsure if he has had previous anemia in the past. Patient denies any blood in his stools patient denies any vomiting blood. Patient denies any dark stools. Patient denies any fevers. Patient does have some chronic wounds of his bilateral lower feet which he states were recently dressed at home. Patient follows with podiatry. Also has sacral wounds as well. On further discussion with daughter who is patient's POA, she states that a friend was checking on the patient at home and stated that he did not appear well therefore labs were obtained and they were called that his hemoglobin was low. She states that patient does have a history of anemia but typically his blood counts are around 7 or 8. She is unsure the cause of his anemia. She states that he wishes to be at home does not wish to be in a nursing facility. Multiple people take care of him at home. He does have some chronic wounds of his sacrum as well as his bilateral lower extremities. His wounds on his feet are being evaluated by podiatry. Daughter states that patient is a DNR, DNI. She states that he has otherwise been at his normal state of health. Related Data Home Medications ?Medication ?Instructions ?Recorded ?Confirmed aspirin 81 mg chewable tablet 81 mg PO DAILY 03/29/23 05/21/25 semaglutide 2 mg/dose (8 mg/3 mL) 2 mg SQ WEEKLY 06/14/23 05/21/25 subcutaneous pen injector (Ozempic) insulin glargine 100 unit/mL (3 110 unit SQ DAILY 05/12/24 05/21/25 mL) subcutaneous pen (Basaglar KwikPen U-100 Insulin) atorvastatin 40 mg tablet 40 mg PO HS 05/16/24 05/21/25 cetirizine 10 mg capsule (All Day 10 mg PO DAILY PRN Allergy Symptoms 05/16/24 05/21/25 Allergy (cetirizine)) cholecalciferol (vitamin D3) 50 50 mcg PO DAILY 05/16/24 05/21/25 mcg (2,000 unit) capsule Previous Rx's ?Medication ?Instructions ?Recorded hydrocortisone 1 % topical spray 1 applic topical BID psoarsis #50 05/13/24 (Anti-Itch (hydrocortisone)) mL nitroglycerin 0.4 mg sublingual 0.4 mg sublingual Q5-15M PRN chest 05/14/24 tablet pain #30 tabs insulin aspart U-100 100 unit/mL 1 sliding scale dose SQ .COMPLEX 05/16/24 (3 mL) subcutaneous pen (Novolog Diabetes #15 mL FlexPen U-100 Insulin aspart) albuterol sulfate 90 mcg/actuation 1 inh inhalation QID COPD #8.5 05/20/24 aerosol inhaler grams albuterol sulfate 0.63 mg/3 mL 0.63 mg (3 mL) inhalation Q6H COPD 05/21/24 solution for nebulization #360 mL spironolactone 25 mg tablet 25 mg PO DAILY 90 days #90 tabs 06/12/24 levothyroxine 75 mcg tablet 75 mcg PO .COMPLEX #4 tabs 08/20/24 promethazine 12.5 mg tablet 12.5 mg PO Q4-6H PRN nausea and 10/13/24 vomiting #60 tabs ondansetron HCl 4 mg tablet 4 mg PO Q8H PRN nausea and 11/03/24 vomiting 5 days #20 tabs methenamine hippurate 1 gram tablet 1 g PO DAILY #90 tabs 12/17/24 furosemide 40 mg tablet 40 mg PO BID 30 days #60 tabs 01/12/25 ranolazine 500 mg tablet,extended 500 mg PO BID #180 tabs 02/12/25 release,12 hr tizanidine 4 mg tablet See Rx Instructions .Route 10/06/25 .COMPLEX #180 tabs pantoprazole 40 mg tablet,delayed See Rx Instructions .Route 03/16/25 release .COMPLEX #90 tabs topiramate 100 mg tablet (Topamax) 100 mg PO BID #60 tabs 03/27/25 diazepam 5 mg tablet 5 mg PO TID 90 days #270 tabs 04/21/25 pregabalin 100 mg capsule 100 mg PO TID 90 days #270 caps 04/21/25 aripiprazole 5 mg tablet 5 mg PO DAILY #90 tabs 05/18/25 metoprolol succinate 25 mg 25 mg PO BID #180 tabs 05/18/25 tablet,extended release 24 hr nystatin 100,000 unit/gram topical See Rx Instructions .Route 05/18/25 powder (Nystop) .COMPLEX #30 grams potassium chloride 20 mEq See Rx Instructions .Route 05/18/25 tablet,extended release(part/cryst) .COMPLEX #90 tabs rivaroxaban 15 mg tablet 15 mg PO QPMWITHMEAL Blood 05/18/25 thinner/AFIB 90 days #90 tabs Heel Protectors (dme) #1 ea 05/19/25 collagenase clostridium histo. 250 1 applic topical DAILY PRN wound 05/19/25 unit/gram topical ointment (Santyl) care 30 days #90 grams oxycodone 15 mg tablet 15 mg PO QID PRN pain #120 tabs 05/19/25 allopurinol 300 mg tablet 300 mg PO DAILY #90 tabs 05/20/25 montelukast 10 mg tablet 10 mg PO HS #90 tabs 05/20/25 Allergies Allergy/AdvReac Type Severity Reaction Status Date / Time gabapentin (From Neurontin) Allergy Intermediate Rash Verified 05/19/25 13:57 [facility] Disclaimer: The information contained in this section may have been updated after the patient was seen, as this information can be updated by other users. Medical History Ulcer of right lower leg Diabetic ulcer of right heel HLD (hyperlipidemia) Functional quadriplegia Chronic pain Pressure ulcer, stage II, skin breakdown Pressure ulcers of skin of multiple topographic sites Constipation Constipation by delayed colonic transit Acute hyponatremia Catheter-associated urinary tract infection UTI (urinary tract infection) due to urinary indwelling catheter Palliative care status Tachycardia Acute exacerbation of chronic obstructive pulmonary disease Acute urinary retention At risk for osteoporosis Diabetes mellitus type 2 in obese At risk for polypharmacy Pneumonia Healthcare-associated pneumonia Chronic respiratory failure with hypoxia Chronic indwelling Rodriguez catheter Peritracheal mass Acute urinary retention Cauda equina syndrome Paralysis, progressive Encounter for immunization Atypical angina Chest pain Abnormal EKG Edema Leg pain, bilateral SOB (shortness of breath) Chronic systolic heart failure CKD (chronic kidney disease) stage 2, GFR 60-89 ml/min Diabetes mellitus COPD (chronic obstructive pulmonary disease) HTN (hypertension) Surgical History H/O repair of rotator cuff Family History Other Diabetes Hypertension Stroke Social History Smoking Status: Never smoker alcohol intake: never substance use type: denies use current occupational status: unemployed Travel in the last 8 weeks?: None household members: spouse housing: house caffeine: Yes Have you lived/traveled outside [place] in past 30 days?: No Contact w/someone who lives/traveled outside [place] past 30 days?: No Exposure to someone with infectious disease in past 14 days?: No Do you have a fever (greater than 100.4 F or 38 C)?: No Have you tested positive for COVID-19?: No Exposed to someone with COVID-19 in past 14 days?: No Do you have a sore throat?: No Do you have a cough?: No Do you have any weakness?: No Do you have any diarrhea?: No Are you experiencing any unusual bleeding?: No Do you have any muscle aches/pain?: No Do you have any abdominal pain?: No Are you experiencing loss of taste or smell?: No Other Medical History Have you received the Flu Vaccine for this season: No Have you received the Pneumonia Vaccine: Yes ROS Obtained: Yes All systems reviewed & no additional complaints except as documented and Yes Systems reviewed as appropriate & no additional complaints except as documented Physical Exam General General appearance: alert and in no apparent distress Head Head exam: atraumatic, normocephalic and normal inspection Eye Eye exam: Present normal appearance, PERRL, EOMI and other (conjunctival pallor ) ENT ENT exam: Present normal exam and normal external ear exam Neck Neck exam: Present normal inspection and full ROM Chest Chest inspection: Present normal inspection and symmetric chest wall rise Respiratory Respiratory exam: Present normal lung sounds bilaterally; Absent respiratory distress or wheezes Cardiovascular Cardiovascular exam: Present regular rate, normal rhythm and normal heart sounds Abdominal Exam Abdominal exam: Present soft and distention; Absent tenderness, guarding or rebound Extremities Exam Extremities exam: Present normal inspection and full ROM Back Exam Back exam: Present normal inspection and full ROM Neurological Exam Neurological exam: Present alert and oriented X3 Psychiatric Psychiatric exam: Present normal affect and normal mood Skin Skin exam: Present warm, dry and other (wounds on the bilateral heels, no purulence or drainage, eschar on heels) Medical Decision Making Medical Records Medical records reviewed: Yes I reviewed the patient's medical records. Screening: Per USPSTF and CDC recommendations, given the prevalence of disease in our region, it is our hospital?s policy to screen for HIV and viral Hepatitis for all patients aged 18 and over and those with ongoing risk factors. [place] Inquiry Pt receiving controlled substance: No Vital Signs: 05/21/25 18:00 05/21/25 20:16 05/21/25 20:17 Temperature 93.7 F L 95.0 F L 95.0 F L Temperature Source Core Core Core Pulse Rate 70 70 Pulse Rate [Left Radial] 65 Respiratory Rate 12 12 12 TAR Vitals Timing Pre-Blood Vitals Start Vitals Blood Pressure 98/48 L 96/52 L Blood Pressure [Right Arm] 93/55 L Blood Pressure Mean 64 66 Blood Pressure Mean [Right Arm] 67 02 Sat by Pulse Oximetry 100 100 100 Oxygen Delivery Method Nasal Cannula Oxygen Flow Rate (LPM) 2 05/21/25 20:22 05/21/25 20:27 05/21/25 20:32 Temperature 95.0 F L 95.0 F L 95.0 F L Temperature Source Core Core Core Pulse Rate 71 70 70 Pulse Rate [Left Radial] Respiratory Rate 11 L 12 11 L TAR Vitals Timing 5 Minute 10 Minute 15 Minute Blood Pressure 90/52 L 113/59 L 103/45 L Blood Pressure [Right Arm] Blood Pressure Mean 64 77 64 Blood Pressure Mean [Right Arm] 02 Sat by Pulse Oximetry 100 100 100 Oxygen Delivery Method Oxygen Flow Rate (LPM) 05/21/25 20:47 05/21/25 21:02 05/21/25 21:17 Temperature 95.4 F L 95.9 F L 95.9 F L Temperature Source Core Core Core Pulse Rate 69 72 75 Pulse Rate [Left Radial] Respiratory Rate 11 L 10 L 11 L TAR Vitals Timing 30 Minute 60 Minute Blood Pressure 99/48 L 105/56 L 99/44 L Blood Pressure [Right Arm] Blood Pressure Mean 65 72 62 Blood Pressure Mean [Right Arm] 02 Sat by Pulse Oximetry 100 100 100 Oxygen Delivery Method Oxygen Flow Rate (LPM) 05/21/25 22:13 Temperature 96.4 F L Temperature Source Pulse Rate 76 Pulse Rate [Left Radial] Respiratory Rate 12 TAR Vitals Timing Blood Pressure 99/55 L Blood Pressure [Right Arm] Blood Pressure Mean Blood Pressure Mean [Right Arm] 02 Sat by Pulse Oximetry Oxygen Delivery Method Nasal Cannula Oxygen Flow Rate (LPM) 2 Lab Data Lab results reviewed: Yes I reviewed the patient's lab results. Lab Results 05/21/25 18:20: WBC 6.3, RBC 2.67 L, Hgb 4.4 L*, Hct 18.0 L*, MCV 67.4 L, MCH 16.5 L, MCHC 24.4 L, RDW 24.8 H, Plt Count 380, MPV 9.6, Neut % (Auto) 59.1, Lymph % (Auto) 28.5, Edmunds % (Auto) 10.6 H, Eos % (Auto) 1.0, Baso % (Auto) 0.2, Neut # (Auto) 3.7, Lymph # (Auto) 1.8, Edmunds # (Auto) 0.7, Eos # (Auto) 0.1, Baso # (Auto) 0.0, Retic Count (auto) 3.8 H, PT 14.6 H, INR 1.34 H, APTT 46.9 H, Sodium 131 L, Potassium 5.2 H, Chloride 106, Carbon Dioxide 19 L, Anion Gap 11.2, BUN 18, Creatinine 1.10, Estimated GFR 67, Est GFR ( Amer) 81, Glucose 76, Lactate 1.2, Calcium 8.9, Phosphorus 4.9 H, Magnesium 1.8, Iron 25 L, TIBC 347, Iron Saturation 7.10705 L, Ferritin 18.9, Total Bilirubin 0.4, AST 70 H, ALT 24, Alkaline Phosphatase 89, Troponin I < 0.01, NT-Pro-B Natriuret Pep 389 H, Total Protein 6.5, Albumin 3.3 L, Globulin 3.2, Albumin/Globulin Ratio 1.0 L, Lipase 69, Vitamin B12 991 H, Folate > 20.00, TSH 0.63, Free T4 2.35 H, Blood Type O Positive, Antibody Screen Negative, Crossmatch (AHG) See Detail 05/21/25 18:49: Urine Color Yellow, Urine Appearance Clear, Urine pH 6.5, Ur Specific [place] 1.010, Urine Protein Negative, Urine Glucose (UA) Negative, Urine Ketones Negative, Urine Blood 1+ A, Urine Nitrate Negative, Urine Bilirubin Negative, Urine Urobilinogen 0.2, Ur Leukocyte Esterase 3+ A, Urine RBC 50-100, Urine WBC Tntc, Ur Squamous Epith Cells 20-50, Urine Bacteria 4+ 05/21/25 18:20 05/21/25 18:20 Orders (Tests/Meds): ED MEDICATIONS Generic Name Dose Route Start Last Admin Trade Name Freq PRN Reason Stop Dose Admin Sodium Chloride 250 mls @ 25 mls/hr 05/21/25 19:00 05/21/25 19:27 Sod Chlor 0.9% 250ml Bag IV 05/22/25 18:59 25 mls/hr .Q10H DORYS Administration Sodium Chloride 10 ml 05/21/25 20:13 05/21/25 20:14 Sodium Chloride 0.9% 10ml Syr (Rad Only) IV 06/20/25 20:12 10 ml NEEDED PRN Administration Maintain IV Site Discontinued Medications Generic Name Dose Route Start Last Admin Trade Name Freq PRN Reason Stop Dose Admin Lactated Ringer's 1,000 mls @ 999 mls/hr 05/21/25 18:09 05/21/25 20:38 Lactated Ringer's 1000 Ml Bag IV 05/21/25 19:09 Infused .Q1H1M ONE Infusion Piperacillin Sod/Tazobactam 100 mls @ 200 mls/hr 05/21/25 19:30 05/21/25 20:39 Sod 4.5 gm/ Sodium Chloride IV 05/31/25 19:29 Infused Q8H DORYS Infusion Piperacillin Sod/Tazobactam 100 mls @ 200 mls/hr 05/21/25 19:30 05/21/25 19:44 Sod 4.5 gm/ Sodium Chloride IV 05/21/25 19:59 Not Given ONCE ONE Vancomycin HCl 2,500 mg/ 500 mls @ 250 mls/hr 05/21/25 19:30 05/21/25 21:06 Sodium Chloride IV 05/21/25 21:29 250 mls/hr ONCE ONE Administration Iopamidol 80 ml 05/21/25 20:13 05/21/25 20:14 Iopamidol-370 (76%);100ml Bottle IV 05/21/25 20:14 80 ml ONCE ONE Administration Miscellaneous 1 each 05/21/25 19:30 05/21/25 19:33 Vancomycin Consult Request NOTAPPLIC 06/20/25 19:29 Not Given [facility] Sodium Chloride 50 ml 05/21/25 20:13 05/21/25 20:14 0.9 % Sodium Chloride 50 Ml Vial IV 05/21/25 20:14 50 ml ONCE ONE Administration ORDERS Category Date Time Status Transfuse RBC's [Red Blood Cells] Stat BBK 05/21/25 18:20 Results Type and Screen Stat BBK 05/21/25 18:[address] angio abdomen pelvis Stat Cat Scan 05/21/25 19:[address] head/brain wo con Stat Cat Scan 05/21/25 19:01 Completed CTA Chest [CT angio chest PE protocol] Stat Cat Scan 05/21/25 19:01 Completed Consult to Case Management [CONS] Routine Cons 05/21/25 20:47 Active CXR --portable [XR chest portable] Stat Exams 05/21/25 18:11 Completed Foot XR left minimum 3 views [XR foot LT min 3V] Stat Exams 05/21/25 18:09 Completed Foot XR right minimum 3 views [XR foot RT min 3V] Stat Exams 05/21/25 18:09 Completed BNP [NT Pro Brain Natriuretic Pep.] Stat Lab 05/21/25 18:20 Completed CBC w/Auto Diff [Complete Blood Count Auto Diff] Stat Lab 05/21/25 18:20 Completed CMP [Comprehensive Metabolic Panel] Stat Lab 05/21/25 18:20 Completed Complete Blood Count Auto Diff DAILY Lab 05/22/25 06:00 Ordered Comprehensive Metabolic Panel AMLAB Lab 05/22/25 06:00 Ordered Ferritin Stat Lab 05/21/25 18:20 Completed Folate Stat Lab 05/21/25 18:20 Completed Free T4 (Free Thyroxine) Stat Lab 05/21/25 18:20 Completed Iron and TIBC Stat Lab 05/21/25 18:20 Completed Lactic Acid Stat Lab 05/21/25 18:20 Completed Lipase Stat Lab 05/21/25 18:20 Completed MAG [Magnesium] Stat Lab 05/21/25 18:20 Completed Occult Blood,Stool Stat Lab 05/21/25 20:10 Ordered PHOS [Phosphorous] Stat Lab 05/21/25 18:20 Completed PT/PTT Stat Lab 05/21/25 18:20 Completed Prothrombin Time INR Stat Lab 05/21/25 18:20 Completed Reticulocyte % (Auto) Stat Lab 05/21/25 18:20 Completed TSH [Thyroid Stimulating Hormone] Stat Lab 05/21/25 18:20 Completed Trop I [Troponin I] Stat Lab 05/21/25 18:20 Completed Troponin I Q3H Lab 05/21/25 21:22 Completed Troponin I Q3H Lab 05/22/25 00:15 Ordered UA [Urinalysis and Microscopic] Stat Lab 05/21/25 18:49 Completed Vitamin B12 Stat Lab 05/21/25 18:20 Completed Blood Culture Stat Micro 05/21/25 18:20 Received Urine Culture Stat Micro 05/21/25 18:09 Ordered Medical Decision Narrative: Patient is a 70-year-old gentleman with a past medical history of chronic paralysis of his lower extremities, chronic indwelling Rodriguez, COPD, emphysema, diabetes who presented to the emergency department with concern for abnormal labs. On arrival, patient was hypotensive, patient was not tachycardic, patient was hypothermic to 93. Differential included but not limited to: Acute blood loss anemia, chronic anemia, sepsis, GI bleed, amongst others. On exam, patient did have conjunctival pallor, patient was pale appearing. Patient's exam was otherwise unremarkable. Had been given IV fluids prior to arrival. Patient's initial blood pressure with EMS was 70 systolic. On arrival patient's initial systolic was 90. A multitude of labs were obtained for both sepsis, and anemia. CT head CT chest and CT abdomen were obtained. Patient's labs were reviewed and interpreted by myself: CBC showed no leukocytosis, hemoglobin was 4.4 with a hematocrit of 18. Reticulocyte count was 3.8. INR was 1.34. Potassium mildly elevated at 5.2. Sodium mildly decreased at 131. Phosphorus mildly elevated at 4.9. Iron studies were sent. BNP normal at 389. Troponin less than 0.01. Lipase normal. UA likely chronically infected but did show too numerous to count white blood cells, large leukoesterase, 4+ bacteria. Patient was typed and screened and patient was ordered 3 units of blood. Although patient's urine may be chronically infected given that patient was hypothermic hypotensive, patient was treated as if he is septic and patient was ordered broad-spectrum antibiotics with vancomycin and Zosyn. Patient CT scans including CT head CT chest and CT abdomen showed no acute pathology or evidence of active bleeding. At this time, I discussed the case with the hospitalist and patient was ultimately admitted to the ICU for further workup and evaluation. Critical Care Critical Care Time Critical Care Time: Yes Attestation: On 05/21/25, the high probability of a clinically significant, sudden or life threatening deterioration of the following system(s) required my full and direct attention, intervention and personal management. The time I documented below is in addition to time spent performing reported procedures but includes the following listed in this critical care notation. Total Time Total Critical Care Time: 45
[2025-05-21 18:53] LABS: Alanine Aminotransferase 24 U/L (12-78); Albumin Level 3.3 g/dl (3.5-5.0); Albumin/Globulin Ratio 1.0 (1.1-1.8); Alkaline Phosphatase 89 U/L (38-126); Anion Gap 11.2 mEq/L (5-15); Aspartate Amino Transferase 70 U/L (17-59); Bilirubin,Total 0.4 mg/dl (0.2-1.3); Blood Urea Nitrogen 18 mg/dl (9-20); Calcium 8.9 mg/dl (8.4-10.2); Carbon Dioxide 19 mmol/L (22.0-30.0); Chloride 106 mmol/L (98-107); Creatinine,Serum 1.10 mg/dl (0.66-1.25); Estimated Glomerular Filt Rate 67 ml/min (>60); GFR (African American) 81 ML/MIN (>60); Globulin 3.2 g/dL (1.3-3.2); Glucose 76 mg/dl (74-100); Magnesium 1.8 mg/dl (1.6-2.3); Phosphorous 4.9 mg/dl (2.5-4.5); Potassium 5.2 mmoL/L (3.5-5.1); Sodium 131 mmol/L (136-145); Total Protein,Serum 6.5 g/dl (6.3-8.2)
[2025-05-21 18:54] LABS: Microscopic, Urine URINE MICROSCOPIC (MICROSCOPIC)
[2025-05-21 18:58] LABS: Hematocrit 18.0 % (42.0-52.0)
--- NOTE | 2025-05-21 19:01 | CT_ITS ---
PROCEDURE INFORMATION: Exam: CTA Chest With Contrast Exam date and time: 05/21/2025 7:45 PM Age: 70 years old Clinical indication: Other: Acute blood loss TECHNIQUE: Imaging protocol: Computed tomographic angiography of the chest with contrast. Exam focused on the arteries. 3D rendering (Not supervised by radiologist): MIP and/or 3D reconstructed images were created by the technologist. Radiation optimization: All CT scans at this facility use at least one of these dose optimization techniques: automated exposure control; mA and/or kV adjustment per patient size (includes targeted exams where dose is matched to clinical indication); or iterative reconstruction. Contrast material: ISOVUE; Contrast volume: 80 ml; Contrast route: INTRAVENOUS (IV); COMPARISON: CT ANGIO CHEST PE PROTOCOL 12/24/2023 12:52 PM FINDINGS: Pulmonary arteries: Normal. No pulmonary emboli. Aorta: Unremarkable. No aortic aneurysm. No aortic dissection. Thyroid: 7 cm heterogeneously enhancing left lobe thyroid mass. Biopsy recommended. Lungs: Unremarkable. No consolidation. No masses. Pleural spaces: Unremarkable. No pneumothorax. No pleural effusion. Heart: Unremarkable. No cardiomegaly. No pericardial effusion. Lymph nodes: Unremarkable. No enlarged lymph nodes. Bones/joints: Unremarkable. No acute fracture. Soft tissues: Unremarkable. IMPRESSION: 1. 7 cm heterogeneously enhancing left lobe thyroid mass. Biopsy recommended. 2. No acute cardiopulmonary findings. COMMENTS: Consistent with the [place] [employer]'s Incidental Findings Committee white paper (J Am Heather Radiol 2015): In patients aged 35 years and older with an incidental thyroid nodule equal to or greater than 1.[address], MRI or extrathyroidal US, further evaluation with dedicated thyroid US is recommended for patients with normal life expectancy and without comorbidities. For smaller nodules without suspicious features, no further evaluation or follow up is recommended.
--- NOTE | 2025-05-21 19:01 | CT_ITS ---
PROCEDURE INFORMATION: Exam: CTA Abdomen and Pelvis With Contrast Exam date and time: 05/21/2025 7:45 PM Age: 70 years old Clinical indication: Other: Acute blood loss TECHNIQUE: Imaging protocol: Computed tomographic angiography of the abdomen and pelvis with contrast. Exam focused on the arteries. 3D rendering (Not supervised by radiologist): MIP and/or 3D reconstructed images were created by the technologist. Radiation optimization: All CT scans at this facility use at least one of these dose optimization techniques: automated exposure control; mA and/or kV adjustment per patient size (includes targeted exams where dose is matched to clinical indication); or iterative reconstruction. Contrast material: ISOVUE; Contrast volume: 80 ml; Contrast route: INTRAVENOUS (IV); COMPARISON: CT ANGIO ABDOMEN PELVIS 09/22/2023 5:17 PM FINDINGS: Lungs: Right lower lobe infiltrate. Patchy left lower lobe infiltrate. Aorta: No aortic aneurysm. No aortic dissection. Celiac and mesenteric arteries: No occlusion or significant stenosis. Renal arteries: No occlusion or significant stenosis. Right iliac arteries: No occlusion or significant stenosis. Left iliac arteries: No occlusion or significant stenosis. Liver: No mass. Gallbladder and biliary ducts: Unremarkable. No calcified stones. No ductal dilation. Pancreas: Unremarkable. No mass. No ductal dilation. Spleen: Unremarkable. No splenomegaly. Adrenal glands: Unremarkable. No mass. Kidneys and ureters: Unremarkable. No solid mass. No hydronephrosis. Stomach and bowel: Large amount of stool in the colon. Appendix: No evidence of appendicitis. Intraperitoneal space: Unremarkable. No free air. No significant fluid collection. Lymph nodes: Unremarkable. No enlarged lymph nodes. Urinary bladder: Rodriguez catheter in the bladder. Thickened bladder wall. Correlate with urinalysis. Reproductive: Unremarkable as visualized. Bones/joints: No acute fracture. Soft tissues: Unremarkable. IMPRESSION: 1. Rodriguez catheter in the bladder. Thickened bladder wall. Correlate with urinalysis. 2. No CTA evidence of active GI bleeding at the time of the study.
--- NOTE | 2025-05-21 19:01 | CT_ITS ---
PROCEDURE INFORMATION: Exam: CT Head Without Contrast Exam date and time: 05/21/2025 7:43 PM Age: 70 years old Clinical indication: Other: Septic, blood loss TECHNIQUE: Imaging protocol: Computed tomography of the head without contrast. Radiation optimization: All CT scans at this facility use at least one of these dose optimization techniques: automated exposure control; mA and/or kV adjustment per patient size (includes targeted exams where dose is matched to clinical indication); or iterative reconstruction. COMPARISON: CT SOFT TISSUE NECK W CON 04/12/2023 1:07 AM FINDINGS: Brain: There is moderate diffuse cerebral volume loss present. Multiple subcortical and deep hypoattenuating white matter foci are present, likely related to small vessel senescent changes and can also be seen with prior infectious / inflammatory insult, or prior traumatic events. No hyperattenuating foci are identified to suggest acute intracranial hemorrhage. Cerebral ventricles: No ventriculomegaly. Paranasal sinuses: Visualized sinuses are unremarkable. No fluid levels. Mastoid air cells: Visualized mastoid air cells are well aerated. Bones: Unremarkable. No acute fracture. Soft tissues: Unremarkable. IMPRESSION: 1. Multiple subcortical and deep hypoattenuating white matter foci are present, likely related to small vessel senescent changes and can also be seen with prior infectious / inflammatory insult, or prior traumatic events. 2. No hyperattenuating foci are identified to suggest acute intracranial hemorrhage.
[2025-05-21 19:02] LABS: Bilirubin,Urine Negative (Negative); Color,Urine YELLOW (Yellow); Glucose,Urine (UA) Negative (Negative); Ketones,Urine Negative (Negative); Leukocyte Esterase,Urine 3+ (Negative); PH,Urine 6.5 (5.0-8.5); Protein,Urine Negative (Negative); Specific Gravity, Urine 1.010 (1.005-1.030); Urobilinogen,Urine 0.2 EU/dl (0.2)
[2025-05-21 19:04] LABS: Hemoglobin 4.4 g/dL (14.1-18.0)
[2025-05-21 19:11] LABS: Troponin I < 0.01 ng/ml (0.00-0.034)
[2025-05-21 19:14] LABS: Activated Partial Thrombo Time 46.9 seconds (22.8-30.6); INR 1.34 (0.9-1.1); Prothrombin Time 14.6 seconds (10.1-12.5)
[2025-05-21 19:23] LABS: Reticulocyte % (Auto) 3.8 % (0.9-3.2)
--- NOTE | 2025-05-21 19:23 | PC.NURSE ---
rounded on pt and spoke with Daughter,JO. Daughter signed DNR/DNI forms and blood consents at this time.
[2025-05-21] MEDS: PIPERACILLIN/TAZO 4.5 GM in 0.9 % SODIUM CHLORIDE 100 ML IV (19:26)
[2025-05-21] MEDS: 0.9 % SODIUM CHLORIDE 250 ML 25 ML IV (19:27)
[2025-05-21 19:35] LABS: Lipase 69 U/L (23-300)
[2025-05-21 19:40] LABS: Bacteria,Urine 4+ /lpf; RBC,Urine 50-100 #/hpf (0-3); Squamous Epithelial Cell,Urine 20-50 #/hpf (0-5); WBC,Urine TNTC #/hpf (0-3)
[2025-05-21 19:50] LABS: NT Pro Brain Natriuretic Pep. 389 pg/mL (0-125)
[2025-05-21 19:53] LABS: Iron 25 ug/dL (49-181)
[2025-05-21 20:03] LABS: Total Iron Binding Capacity 347 ug/dL (261-462)
[2025-05-21] MEDS: 0.9 % SODIUM CHLORIDE 50 ML VIAL IV (20:14)
[2025-05-21] MEDS: IOPAMIDOL-370 (76%);100ML BOTTLE 80 ML IV (20:14)
[2025-05-21] MEDS: SODIUM CHLORIDE 0.9% 10ML SYR (RAD ONLY) 10 ML IV (20:14)
[2025-05-21 20:38] LABS: Ferritin 18.9 ng/ml (17.9-464)
[2025-05-21 20:48] LABS: Thyroid Stimulating Hormone 0.63 uIU/mL (0.465-4.68)
--- NOTE | 2025-05-21 20:52 | EXP.HP ---
History of Present Illness *Admission Date: 05/21/25 *Reason for visit:: Abnormal laboratory finding and generalized weakness *History of present illness: Adeel Nichole is a 70-year-old male with past medical history significant for type 2 diabetes mellitus, COPD, CKD, indwelling Rodriguez catheter, quadriplegia, anemia and chronic anticoagulation with Xarelto. Patient presents to [facility] due to generalized weakness. History provided his daughter/POA. Daughter reports abnormal laboratory finding of low hemoglobin along with patient feeling unwell prompted them to follow-up to the emergency department. Repeat laboratory findings while in the emergency did pertinent confirmed outpatient finding of low hemoglobin. Daughter states patient does have a history of anemia and occasionally will find to have a low hemoglobin at times. Baseline hemoglobin approximately around 7-8. Patient's hemoglobin was noted to be 4.3 which was consistent with finding in the emergency department. Patient and daughter denies any known active bleeding. Denies any new/worsening weakness from his baseline. He also has a chronic indwelling Rodriguez catheter. Patient and daughter denies any new complications and/or urinary symptoms. ED workup also found patient to be hypothermic, tachycardic with notable large leukocyte esterase and 4+ bacteria within urine. Patient typed and screened within the ED with 3 units packed red blood cells to be transfused. Patient placed on bear hugger. Admitted to hospital for further evaluation/treatment. Patient fever, chills, nausea, vomiting, abdominal pain, chest pain or shortness of breath . Initial ED workup included laboratory studies. Significant laboratory findings included hemoglobin 4.4, hematocrit 18, sodium 131, iron 25, AST 70, BNP 389, free T4 2.35, UA with 3+ leukocyte esterase, 1+ urine blood, 4+ urine bacteria. Imaging study included foot x-ray, chest x-ray, abdomen pelvis CTA, chest CTA, head CT, I personally reviewed all imaging and were found without acute findings. Patient assessed at bedside, POA present. Currently without acute distress resting in bed comfortably. Hemodynamically stable. [facility] Disclaimer: The information contained in this section may have been updated after the patient was seen, as this information can be updated by other users. Medical History Ulcer of right lower leg Diabetic ulcer of right heel HLD (hyperlipidemia) Functional quadriplegia Chronic pain Pressure ulcer, stage II, skin breakdown Pressure ulcers of skin of multiple topographic sites Constipation Constipation by delayed colonic transit Acute hyponatremia Catheter-associated urinary tract infection UTI (urinary tract infection) due to urinary indwelling catheter Palliative care status Tachycardia Acute exacerbation of chronic obstructive pulmonary disease Acute urinary retention At risk for osteoporosis Diabetes mellitus type 2 in obese At risk for polypharmacy Pneumonia Healthcare-associated pneumonia Chronic respiratory failure with hypoxia Chronic indwelling Rodriguez catheter Peritracheal mass Acute urinary retention Cauda equina syndrome Paralysis, progressive Encounter for immunization Atypical angina Chest pain Abnormal EKG Edema Leg pain, bilateral SOB (shortness of breath) Chronic systolic heart failure CKD (chronic kidney disease) stage 2, GFR 60-89 ml/min Diabetes mellitus COPD (chronic obstructive pulmonary disease) HTN (hypertension) Surgical History H/O repair of rotator cuff Family History Other Diabetes Hypertension Stroke Social History Smoking Status: Never smoker alcohol intake: never substance use type: denies use current occupational status: unemployed Travel in the last 8 weeks?: None household members: spouse housing: house caffeine: Yes Have you lived/traveled outside US in past 30 days?: No Contact w/someone who lives/traveled outside US past 30 days?: No Exposure to someone with infectious disease in past 14 days?: No Do you have a fever (greater than 100.4 F or 38 C)?: No Have you tested positive for COVID-19?: No Exposed to someone with COVID-19 in past 14 days?: No Do you have a sore throat?: No Do you have a cough?: No Do you have any weakness?: No Do you have any diarrhea?: No Are you experiencing any unusual bleeding?: No Do you have any muscle aches/pain?: No Do you have any abdominal pain?: No Are you experiencing loss of taste or smell?: No Other Medical History Have you received the Flu Vaccine for this season: No Have you received the Pneumonia Vaccine: Yes Review of Systems Review of Systems Review of systems:: pertinent systems reviewed and negative unless documented below Constitutional Constitutional: Reports system reviewed and no additional complaints, except as documented and Reports as per HPI Eyes Eyes: Reports system reviewed and no additional complaints, except as documented and Reports as per HPI ENT Ears, Nose, Mouth, and Throat: Reports system reviewed and no additional complaints, except as documented and Reports as per HPI *Cardiovascular Cardiovascular: Reports system reviewed and no additional complaints, except as documented and Reports as per HPI *Respiratory Respiratory: Reports system reviewed and no additional complaints, except as documented and Reports as per HPI *Gastrointestinal Gastrointestinal: Reports system reviewed and no additional complaints, except as documented and Reports as per HPI *Genitourinary Genitourinary: Reports as per HPI Comments: Chronic indwelling Rodriguez catheter *Musculoskeletal Musculoskeletal: Reports as per HPI and Reports limited range of motion Integumentary/Breasts Skin/Breast: Reports system reviewed and no additional complaints, except as documented and Reports as per HPI *Neurologic Neurologic: Reports as per HPI Comments: Quadriplegia Psychiatric Psychiatric: Reports system reviewed and no additional complaints, except as documented and Reports as per HPI Endocrine Endocrine: Reports system reviewed and no additional complaints, except as documented and Reports as per HPI Hematologic/Lymphatic Hematologic/Lymphatic: Reports system reviewed and no additional complaints, except as documented and Reports as per HPI Allergic/Immunologic Allergic/Immunologic: Reports system reviewed and no additional complaints, except as documented and Reports as per HPI Meds Home Medications and Allergies Home Medications ?Medication ?Instructions ?Recorded ?Confirmed ?Type aspirin 81 mg chewable tablet 81 mg PO DAILY 03/29/23 05/21/25 History semaglutide 2 mg/dose (8 mg/3 mL) 2 mg SQ WEEKLY 06/14/23 05/21/25 History subcutaneous pen injector (Ozempic) insulin glargine 100 unit/mL (3 110 unit SQ DAILY 05/12/24 05/21/25 History mL) subcutaneous pen (Basaglar KwikPen U-100 Insulin) hydrocortisone 1 % topical spray 1 applic topical BID psoarsis #50 05/13/24 05/21/25 Rx (Anti-Itch (hydrocortisone)) mL nitroglycerin 0.4 mg sublingual 0.4 mg sublingual Q5-15M PRN chest 05/14/24 05/21/25 Rx tablet pain #30 tabs atorvastatin 40 mg tablet 40 mg PO HS 05/16/24 05/21/25 History cetirizine 10 mg capsule (All Day 10 mg PO DAILY PRN Allergy Symptoms 05/16/24 05/21/25 History Allergy (cetirizine)) cholecalciferol (vitamin D3) 50 50 mcg PO DAILY 05/16/24 05/21/25 History mcg (2,000 unit) capsule insulin aspart U-100 100 unit/mL 1 sliding scale dose SQ .COMPLEX 05/16/24 05/21/25 Rx (3 mL) subcutaneous pen (Novolog Diabetes #15 mL FlexPen U-100 Insulin aspart) albuterol sulfate 90 mcg/actuation 1 inh inhalation QID COPD #8.5 05/20/24 05/21/25 Rx aerosol inhaler grams albuterol sulfate 0.63 mg/3 mL 0.63 mg (3 mL) inhalation Q6H COPD 05/21/24 05/21/25 Rx solution for nebulization #360 mL spironolactone 25 mg tablet 25 mg PO DAILY 90 days #90 tabs 06/12/24 05/21/25 Rx levothyroxine 75 mcg tablet 75 mcg PO .COMPLEX #4 tabs 08/20/24 05/21/25 Rx promethazine 12.5 mg tablet 12.5 mg PO Q4-6H PRN nausea and 10/13/24 05/21/25 Rx vomiting #60 tabs ondansetron HCl 4 mg tablet 4 mg PO Q8H PRN nausea and 11/03/24 05/21/25 Rx vomiting 5 days #20 tabs methenamine hippurate 1 gram tablet 1 g PO DAILY #90 tabs 12/17/24 05/21/25 Rx furosemide 40 mg tablet 40 mg PO BID 30 days #60 tabs 01/12/25 05/21/25 Rx ranolazine 500 mg tablet,extended 500 mg PO BID #180 tabs 02/12/25 05/21/25 Rx release,12 hr tizanidine 4 mg tablet See Rx Instructions .Route 03/09/25 05/21/25 Rx .COMPLEX #180 tabs pantoprazole 40 mg tablet,delayed See Rx Instructions .Route 03/16/25 05/21/25 Rx release .COMPLEX #90 tabs topiramate 100 mg tablet (Topamax) 100 mg PO BID #60 tabs 03/27/25 05/21/25 Rx diazepam 5 mg tablet 5 mg PO TID 90 days #270 tabs 04/21/25 05/21/25 Rx pregabalin 100 mg capsule 100 mg PO TID 90 days #270 caps 04/21/25 05/21/25 Rx aripiprazole 5 mg tablet 5 mg PO DAILY #90 tabs 05/18/25 05/21/25 Rx metoprolol succinate 25 mg 25 mg PO BID #180 tabs 05/18/25 05/21/25 Rx tablet,extended release 24 hr nystatin 100,000 unit/gram topical See Rx Instructions .Route 05/18/25 05/21/25 Rx powder (Nystop) .COMPLEX #30 grams potassium chloride 20 mEq See Rx Instructions .Route 05/18/25 05/21/25 Rx tablet,extended release(part/cryst) .COMPLEX #90 tabs rivaroxaban 15 mg tablet 15 mg PO QPMWITHMEAL Blood 05/18/25 05/21/25 Rx thinner/AFIB 90 days #90 tabs Heel Protectors (dme) #1 ea 05/19/25 05/21/25 Rx collagenase clostridium histo. 250 1 applic topical DAILY PRN wound 05/19/25 05/21/25 Rx unit/gram topical ointment (Santyl) care 30 days #90 grams oxycodone 15 mg tablet 15 mg PO QID PRN pain #120 tabs 05/19/25 05/21/25 Rx allopurinol 300 mg tablet 300 mg PO DAILY #90 tabs 05/20/25 05/21/25 Rx montelukast 10 mg tablet 10 mg PO HS #90 tabs 05/20/25 05/21/25 Rx New Prescriptions to Start Prescriptions: Allergies Allergy/AdvReac Type Severity Reaction Status Date / Time gabapentin (From Neurontin) Allergy Intermediate Rash Verified 05/19/25 13:57 Exam Data for Last 24 hours Vital signs and Labs for Last 24 Hours: Temp Pulse Resp BP Pulse Ox O2 Del Method O2 Flow Rate 95.0 F L 70 11 L 103/45 L 100 Nasal Cannula 2 05/21/25 20:32 05/21/25 20:32 05/21/25 20:32 05/21/25 20:32 05/21/25 20:32 05/21/25 18:00 05/21/25 18:00 Laboratory Results - last 24 hr 05/21/25 18:20: WBC 6.3, RBC 2.67 L, Hgb 4.4 L*, Hct 18.0 L*, MCV 67.4 L, MCH 16.5 L, MCHC 24.4 L, RDW 24.8 H, Plt Count 380, MPV 9.6, Neut % (Auto) 59.1, Lymph % (Auto) 28.5, [place] % (Auto) 10.6 H, Eos % (Auto) 1.0, Baso % (Auto) 0.2, Neut # (Auto) 3.7, Lymph # (Auto) 1.8, [place] # (Auto) 0.7, Eos # (Auto) 0.1, Baso # (Auto) 0.0, Retic Count (auto) 3.8 H, PT 14.6 H, INR 1.34 H, APTT 46.9 H, Sodium 131 L, Potassium 5.2 H, Chloride 106, Carbon Dioxide 19 L, Anion Gap 11.2, BUN 18, Creatinine 1.10, Estimated GFR 67, Est GFR ( Amer) 81, Glucose 76, Lactate 1.2, Calcium 8.9, Phosphorus 4.9 H, Magnesium 1.8, Iron 25 L, TIBC 347, Iron Saturation 7.86018 L, Ferritin 18.9, Total Bilirubin 0.4, AST 70 H, ALT 24, Alkaline Phosphatase 89, Troponin I < 0.01, NT-Pro-B Natriuret Pep 389 H, Total Protein 6.5, Albumin 3.3 L, Globulin 3.2, Albumin/Globulin Ratio 1.0 L, Lipase 69, TSH 0.63, Blood Type O Positive, Antibody Screen Negative, Crossmatch (AHG) See Detail 05/21/25 18:49: Urine Color Yellow, Urine Appearance Clear, Urine pH 6.5, Ur Specific [place] 1.010, Urine Protein Negative, Urine Glucose (UA) Negative, Urine Ketones Negative, Urine Blood 1+ A, Urine Nitrate Negative, Urine Bilirubin Negative, Urine Urobilinogen 0.2, Ur Leukocyte Esterase 3+ A, Urine RBC 50-100, Urine WBC Tntc, Ur Squamous Epith Cells 20-50, Urine Bacteria 4+ I & O for Last 24 hours: Intake & Output 05/18/25 05/19/25 05/20/25 05/21/25 23:59 23:59 23:59 23:59 Intake Total 1100 / 1100 Balance 1100 / 1100 Weight 120.202 kg *Routine HEENT Exam Head: Present normocephalic, atraumatic and cushingoid faces Eye: Present EOMI, PERRL and normal accommodation ENT: Present mucous membranes moist *Routine Neck Exam Neck: Present supple and full ROM *Routine Respiratory Exam Respiratory: Present normal respiratory effort *Routine Cardiovascular Exam Cardiovascular: Present RRR, Normal S1 and Normal S2 *Routine Abdominal Exam Abdominal: Present soft and normoactive bowel sounds *Routine Rectal Exam Rectal:: deferred *Routine Genitalia Exam Genitalia:: deferred *Routine Extremities Exam Extremities: Present full ROM, pulses intact and normal capillary refill *Routine Skin Exam Skin: Present intact and wounds Comments: Sacral and foot wound ulcers *Routine Neurological Exam Neurological: Present alert, oriented X3 and CN II-XII intact Routine Psychiatric Exam Psychiatric: Present normal affect Assessment and Plan *Assessment and plan (1) Acute on chronic anemia: Status: Acute Category: Medical Code(s): D64.9 - Anemia, unspecified (2) Catheter-associated urinary tract infection: Status: Acute Qualifiers: Indwelling urinary catheter type: unspecified Encounter type: subsequent encounter Qualified Code(s): T83.511D - Infection and inflammatory reaction due to indwelling urethral catheter, subsequent encounter; N39.0 - Urinary tract infection, site not specified Category: Medical Code(s): T83.511A - Infection and inflammatory reaction due to indwelling urethral catheter, initial encounter; N39.0 - Urinary tract infection, site not specified (3) Hypothermia: Status: Acute Qualifiers: Encounter type: initial encounter Qualified Code(s): T68.XXXA - Hypothermia, initial encounter Category: Medical Code(s): T68.XXXA - Hypothermia, initial encounter (4) Functional quadriplegia: Status: Acute Category: Medical Code(s): R53.2 - Functional quadriplegia (5) Diabetic ulcer of right heel: Status: Acute Qualifiers: Diabetes mellitus type: type 2 Non-pressure ulcer stage: with fat layer exposed Qualified Code(s): E11.621 - Type 2 diabetes mellitus with foot ulcer; L97.412 - Non-pressure chronic ulcer of right heel and midfoot with fat layer exposed Category: Medical Code(s): E11.621 - Type 2 diabetes mellitus with foot ulcer; L97.419 - Non-pressure chronic ulcer of right heel and midfoot with unspecified severity (6) HTN (hypertension): Status: Acute Qualifiers: Hypertension type: primary hypertension Qualified Code(s): I10 - Essential (primary) hypertension Category: Medical Code(s): I10 - Essential (primary) hypertension (7) Diabetes mellitus type 2 in obese: Status: Acute Category: Medical Code(s): E11.69 - Type 2 diabetes mellitus with other specified complication; E66.9 - Obesity, unspecified (8) COPD (chronic obstructive pulmonary disease): Status: Acute Qualifiers: COPD type: unspecified COPD Qualified Code(s): J44.9 - Chronic obstructive pulmonary disease, unspecified Category: Medical Code(s): J44.9 - Chronic obstructive pulmonary disease, unspecified (9) HLD (hyperlipidemia): Status: Acute Qualifiers: Hyperlipidemia type: other hyperlipidemia Qualified Code(s): E78.49 - Other hyperlipidemia Category: Medical Code(s): E78.5 - Hyperlipidemia, unspecified (10) CKD (chronic kidney disease) stage 2, GFR 60-89 ml/min: Status: Acute Category: Medical Code(s): N18.2 - Chronic kidney disease, stage 2 (mild) (11) DNR (do not resuscitate): Status: Acute Category: Medical Code(s): Z66 - Do not resuscitate (12) Hypothyroidism: Status: Acute Qualifiers: Hypothyroidism type: acquired Qualified Code(s): E03.9 - Hypothyroidism, unspecified Category: Medical Code(s): E03.9 - Hypothyroidism, unspecified Plan Assessment/plan: I personally discussed the management of this patient with the emergency department and agree with admission. Patient is a 70-year-old male with past medical history significant for quadriplegia, COPD, CKD, DM2 and anemia. Patient presents due to feeling unwell and abnormal Hgb lab finding. ED workup resulted hemoglobin 4.4, no active source of bleeding. Prior remote history of low hemoglobin due to anemia. Patient typed and screened with 3 units of packed red blood cells to be transfused. ED workup also found patient to be hypothermic, tachycardic with notable large leukocyte esterase and 4+ bacteria within urine. History of chronic Rodriguez catheter. Due to presentation patient treated as sepsis. Broad-spectrum IV antibiotics initiated in the emergency department with vancomycin and Zosyn. Admitted to the ICU for further evaluation and treatment. 1. Acute on chronic anemia: Hemoglobin 4.4, no active source of bleeding. Typed and screened with 3 units of packed red cells to be transfused. POA noted baseline hemoglobin approximately 7-8. Patient is on blood thinner with Xarelto-but is noted no obvious active bleeding. Continue to monitor trend labs. 2. Catheter associated urinary tract infection: UA with large leukocyte esterase, 4+ bacteria-possibly chronic infection. Rodriguez catheter exchanged in the emergency department. Due to presentation hypothermia tachycardia patient placed on broad-spectrum IV antibiotics. Blood culture and urine culture obtained and pending. Resume IV Vanco and Zosyn. 3. HTN/HLD: Normotensive, monitor vitals closely due to underlying sepsis. At this time will resume antihypertensive and statin therapy. 7. DM2: Stable-resume home antihyperglycemic medication. Including insulin sliding scale. Accu-Cheks ACHS. Diabetic diet. 8. COPD: Stable without complication. Resume home inhaler and nebs. Pulmonary hygiene. 9. CKD: Creatinine 1.10, BUN 18, GFR 67. Renal function baseline-> continue to monitor, avoid nephrotoxic medication if at all possible. Trend with morning labs. 10. Hypothyroidism: Resume home levothyroxine 75 mcg-> TSH 0.63, free T4 2.35. Per imaging chest CTA-notable7 cm heterogeneously enhancing left lobe thyroid mass. POA reports this is a known mass, inoperable, present for 10 years. 11. Chronic anticoagulation: Patient receiving Xarelto for chronic anticoagulation, PT 14.6, INR 1.34-> as noted above no obvious signs of bleeding. Will hold today's dose for evaluation overnight. Will likely be okay to resume tomorrow after transfusion or no active bleeding. DNR/DNI DVT prophylaxis Xarelto Diabetic diet
[2025-05-21] MEDS: VANCOMYCIN HCL 2,500 MG in 0.9 % SODIUM CHLORIDE 500 ML 250 MG IV (21:06)
[2025-05-21 21:23] LABS: Vitamin B12 991 pg/mL (239-931)
[2025-05-21 21:42] LABS: Folate > 20.00 ng/mL
--- NOTE | 2025-05-21 21:49 | PC.NURSE ---
report called to ANGELLA Collazo
[2025-05-21 22:12] LABS: Free T4 (Free Thyroxine) 2.35 ng/dl (0.78-2.19)
[2025-05-21 22:14] LABS: Troponin I < 0.01 ng/ml (0.00-0.034)
--- NOTE | 2025-05-21 22:55 | PC.NURSE ---
Patient arrived to ICU via stretcher from ED at 22:40.
[2025-05-22] VITALS (26 sets, daily range): BP systolic 101–133; BP diastolic 55–74; PULSE 76–97; RESP 9–18; TEMP 35.8–37.2; O2SAT 91–100; BMI 26.5
[2025-05-22] MEDS: 0.9 % SODIUM CHLORIDE 250 ML 25 ML IV ×2 (00:15→06:53)
--- NOTE | 2025-05-22 00:30 | ECG_ITS ---
APPROVED REPORT Exam: Resting ECG HR:85 bpm ECG Measurements Heart Rate 85 AXES QRSd 90 QRS -24 QT 322 T 102 QTc 364 Conclusion SUPRAVENTRICULAR RHYTHM - marked artifact limits interpretation BORDERLINE LEFT AXIS DEVIATION [QRS AXIS < -20] NONSPECIFIC T-WAVE ABNORMALITY ABNORMAL ECG UNCONFIRMED REPORT Electronically signed by : Clifton Kulkarni MD 05/22/2025 18:13:17
[2025-05-22] MEDS: PIPERCILLIN/TAZO 3.375 GM in 0.9 % SODIUM CHLORIDE 50 ML IV (01:06)
[2025-05-22] MEDS: TOPIRAMATE 100MG TABLET 100 MG PO ×3 (01:07→20:57)
[2025-05-22] MEDS: PREGABALIN 100MG CAPSULE 100 MG PO ×4 (01:07→20:33)
[2025-05-22] MEDS: RANOLAZINE 500MG ER TABLET 500 MG PO ×3 (01:07→20:33)
[2025-05-22] MEDS: diazePAM 5MG TABLET 5 MG PO ×4 (01:08→20:32)
[2025-05-22] MEDS: FUROSEMIDE 20 MG/2 ML VIAL IV (01:08)
[2025-05-22 05:23] LABS: Albumin Level 3.3 g/dl (3.5-5.0); Chloride 105 mmol/L (98-107); Potassium 4.6 mmoL/L (3.5-5.1); Sodium 134 mmol/L (136-145)
[2025-05-22 05:25] LABS: Hematocrit 27.2 % (42.0-52.0); Immature Granulocytes % 0.7 %; Mean Corpuscular HGB Conc 26.8 g/dL (31.8-35.4); Mean Corpuscular Hemoglobin 20.5 pg (27.0-31.2); Mean Corpuscular Volume 76.4 fl (80-94); Nucleated Red Blood Cells % 0.4 %; Platelet Count 303 K/mm3 (142-424); Red Blood Count 3.56 M/mm3 (4.60-6.20); Red Cell Distribution Width-SD 73.1 fL; White Blood Count 6.8 K/mm3 (4.8-10.8)
[2025-05-22 05:26] LABS: Alanine Aminotransferase 24 U/L (12-78); Albumin/Globulin Ratio 1.1 (1.1-1.8); Alkaline Phosphatase 81 U/L (38-126); Anion Gap 15.6 mEq/L (5-15); Aspartate Amino Transferase 70 U/L (17-59); Bilirubin,Total 0.4 mg/dl (0.2-1.3); Blood Urea Nitrogen 17 mg/dl (9-20); Calcium 8.5 mg/dl (8.4-10.2); Carbon Dioxide 18 mmol/L (22.0-30.0); Creatinine Clearance Estimated 86 mL/min (50-200); Creatinine,Serum 1.00 mg/dl (0.66-1.25); Estimated Glomerular Filt Rate 74 ml/min (>60); GFR (African American) 90 ML/MIN (>60); Globulin 3.1 g/dL (1.3-3.2); Glucose 85 mg/dl (74-100); Total Protein,Serum 6.4 g/dl (6.3-8.2)
[2025-05-22 05:27] LABS: Hemoglobin 7.0 g/dL (14.1-18.0)
[2025-05-22 07:05] LABS: POC Glucose,Bedside 105 gm/dL (70-110)
--- OUTSIDE RECORDS SUMMARY | 2025-05-22 08:19 | XMS_ITS | Encounter Summary ---
Author Organization Healthcare Address [address] [place] [address] Care Team Providers Care Assurance Services Manager Health Care Name Role Phone Paulo Brody Primary Care Provider [phone] Encounter Details Date Type Department Care Team (Late st Contact Info) Description [facility] [address] [place] [address] [phone] Pierce Mckeon Social History Tobacco Use Types [...] AM EDT [facility] [address] [place] [phone] Elayne Campbell, TEENAGE PROGRAM DIRECTOR [address] [facility] [address] [place] [address] documented as of this encounter Visit Diagnoses Not on filedocumented in this encounter Additional Health Concerns Assessment Noted Time A fall risk assessment has been complete d for the patient 11/27/2023 3:20 PM EDT A Body Mass Index follow-up plan has been documented for the patient 12/19/2024 10:39 AM EDT documented as of this encounter Care Teams Assurance Services Manager Health Care Relationship Specialty Start Date End Date Paulo Brody DO [address] [place] [address] PCP - General 08/01/23 documented as of this encounter
--- OUTSIDE RECORDS SUMMARY | 2025-05-22 08:19 | XMS_ITS | Encounter Summary ---
Author Organization [facility] Address [address] [place] [address] Care Team Providers Care Supervisor [employer] Name Role Phone Paulo Brody Primary Care Provider [phone] Reason for Visit * Reason Onset Date Comments HCN - Patient Message 05/21/2025 Encounter Details Date Type Department Care Team (Late st Contact Info) Description 05/21/2025 Telephone [facility] Endocrinology [address] [place] [address] Elayne Campbell, PLUMBER'S HELPER [address] [facility] [address] [place] [address] HCN - Patient Message Social [...] draw the order please fax to # [phone] Best contact number: Other: [phone] Optimal time of day to reach caller: ANYTIME Additional comments/information from caller: None Note: Please do not reply to this message. Follow-up communication and further actions as a result of this message need to be communicated with the patient directly, if the patient is not active onMyChart. If the patient is active on MyChart, they will receive notification of the communication/outcome via [employer]. documented in this encounter Plan of Treatment Upcoming Encounters Date Type Department Care Team (Late st Contact Info) Description 08/28/2025 9:40 AM EDT Office Visit [facility] Endocrinology [address] [place] [phone] Elayne Campbell S, PLUMBER'S HELPER [address] [place] [phone] documented as of this encounter Visit Diagnoses Not on filedocumented in this encounter Additional Health Concerns Assessment Noted Time A fall risk assessment has been complete d for the patient 11/27/2023 3:20 PM EDT A Body Mass Index follow-up plan has been documented for the patient 05/15/2025 10:09 AM EST documented as of this encounter Care Teams Supervisor [employer] Relationship Specialty Start Date End Date Paulo Brody DO [address] [place] [address] PCP - General 08/01/23 documented as of this encounter
--- OUTSIDE RECORDS SUMMARY | 2025-05-22 08:19 | XMS_ITS | Encounter Summary ---
Author Organization [employer] ([place], [place], [place], [place], [place]) Address [address] [place] [address] Care Team Providers Care Video Intern Name Role Phone Unavailable Primary Care Provider Unavailabl e Encounter Details Date Type Department Care Team (Late st Contact Info) Description 12/31/2024 Lab Requisition [facility] Lab [address] [place] [address] Elayne Campbell, ABNER [address] [place] [address] Social History Tobacco Use Types [...] speak a language other than Citizen Of [place] at [facility]? No 09/22/2023 Do you want [...] - 3.740 uIU/mL 12/31/2024 5:33 PM EDT [facility] Blood 12/31/2024 10:3 1 AM EDT 12/31/2024 5:02 PM EDT Elayne Campbell FINISHING RANGE OPERATOR LAB BLOOD ORDERABLES Final Re sult Performing Organization Address City/[facility]/ZIP Co de Phone Number [facility] [address] [place] [address], [facility] [phone] * T4 (12/31/2024 10:31 AM EDT) T4, Total 13.3 4.7 - 13.3 ug/dL 12/31/2024 5:33 PM EDT [facility] Blood 12/31/2024 10:3 1 AM EDT 12/31/2024 5:02 PM EDT Elayne Campbell FINISHING RANGE OPERATOR LAB BLOOD ORDERABLES Final Re sult Performing Organization Address [facility] de Phone Number [facility] [address] [place] [address] * Hemoglobin A1c (12/31/2024 10:31 AM EDT) Hemoglobin A1C 5.4 % 12/31/2024 5:39 PM EDT [facility] Comment: Hemoglobin A1C levels are related to mean glucose during the preceding 2-3 months. Less than 7% demonstrates glycemic control in diabetic patients. Hemoglobin AlC % Suggested Diagnosis > or = 6.5 Diabetic 5.7 - 6.4 Prediabetic <5.7 Non-diabetic eAVG Glucose 108.28 mg/dL 12/31/2024 5:39 PM EDT [facility] Blood 12/31/2024 10:3 1 AM EDT 12/31/2024 5:02 PM EDT Result [facility] Elayne Campbell FINISHING RANGE OPERATOR LAB BLOOD ORDERABLES Final Re sult Performing Organization Address City/[facility] Co de Phone Number [facility] [address] [place] [address], [facility] [phone] documented in this encounter Visit Diagnoses Not on filedocumented in this encounter Additional Health Concerns Infection Onset Date Last Indicated Resolved Time MDR E.coli (C) Comment:ESBL/MDR 09/26/2023 09/26/2023 documented as of this encounter
--- OUTSIDE RECORDS SUMMARY | 2025-05-22 08:19 | XMS_ITS | Encounter Summary ---
Author Organization [employer] ([place], [place], [place], [place], [place]) Address [address] [place] [address] Care Team Providers Care Special Events Director Name Role Phone Unavailable Primary Care Provider Unavailabl e Encounter Details Date Type Department Care Team (Late st Contact Info) Description 05/21/2025 Lab Requisition [facility] Lab [address] [place] [phone] Clifton Parr MD [address] [place] [address] Social History Tobacco Use Types [...] speak a language other than Citizen Of [place] at [facility]? No 09/22/2023 Do you want help with [...] Procedure Name Priority Date/Time Associated Diagnosis Comments [facility] CBC SCAN Routine 05/21/2025 3:30 PM EST CBC HEMOGRAM (-BKR) Routine 05/21/2025 3:30 PM EST documented in this encounter Results * (ABNORMAL) CBC Scan (05/21/2025 3:30 PM EST) Platelet Estimate Adequate Adequate 05/21/2025 4:03 PM EST [facility] RBC Morphology abnormal(A) Normal 4:03 PM EST [facility] Anisocytosis 2+ 05/21/2025 4:03 PM EST [facility] Hypochromia 2+ 05/21/2025 4:03 PM EST [facility] Microcytes 3+ 05/21/2025 4:03 PM [facility] Blood 05/21/2025 3:30 PM EST 05/21/2025 3:34 PM EST us Clifton Parr MD LAB BLOOD ORDERABLES Final R esult [facility] [address] [place] [id number] [phone] * (ABNORMAL) CBC - Hemogram (SJ-BKR) (05/21/2025 3:30 PM EST) WBC 5.0 4.8 - 10.8 K/ L 05/21/2025 4:02 PM [facility] RBC 2.79(L) 3.80 - 5.20 M/ L 05/21/2025 4:02 PM [facility] Hemoglobin 4.7(LL) 12.8 - 17.4 GM/DL 05/21/2025 4:02 PM [facility] Hematocrit 19.0(L) 39.0 - 51.0 % 05/21/2025 4:02 PM [facility] MCV 68(L) 81 - 101 fL 05/21/2025 4:02 PM [facility] MCH <20.0(L) 27.0 - 34.0 pg 05/21/2025 4:02 PM [facility] MCHC <28.0(L) 32.0 - 36.0 GM/DL 05/21/2025 4:02 PM [facility] RDW 24.7(H) 11.5 - 14.5 % 05/21/2025 4:02 PM [facility] Platelets 342 150 - 400 K/CU MM 05/21/2025 4:02 PM [facility] MPV 10.2 9.4 - 12.4 fL 05/21/2025 4:02 PM [facility] Blood 05/21/2025 3:30 PM EST 05/21/2025 3:34 PM EST us Clifton Parr MD LAB BLOOD ORDERABLES Final R esult [facility] [address] [phone] documented in this encounter Visit Diagnoses Not on filedocumented in this encounter Additional Health Concerns Infection Onset Date Last Indicated Resolved Time MDR E.coli (C) Comment:ESBL/MDR 09/26/2023 09/26/2023 documented as of this encounter
--- OUTSIDE RECORDS SUMMARY | 2025-05-22 08:19 | XMS_ITS | Encounter Summary ---
Author Organization [employer] ([place], [place], [place], [place], [place]) Address [address] [place] [address] Care Team Providers Care Manager Forms Name Role Phone Unavailable Primary Care Provider Unavailabl e Encounter Details Date Type Department Care Team (Late st Contact Info) Description 12/31/2024 Lab Requisition [facility] [address] [place] [phone] Social History Tobacco Use Types Packs/Day [...] Do you speak a language other than Canadian at [facility]? No 09/22/2023 Do you want help [...]
--- OUTSIDE RECORDS SUMMARY | 2025-05-22 08:19 | XMS_ITS | Referral Summary ---
Author Organization [employer] ([place], [place], [place], [place], [place]) Address [address] [place] [address] Care Team Providers Care Hotel Clerk Name Role Phone Unavailable Primary Care Provider Unavailabl e Encounters Date Type Department Care Team Description 05/21/2025 Lab Requisition [facility] [address] [place] [address] Clifton Parr MD 05/14/2025 Lab Requisition [facility] [address] [place] [address] Clifton Parr MD Urinary tract infection, site not specified 05/14/2025 Travel 04/03/2025 Lab Requisition [facility] [address] [place] [address] Clifton Parr MD from Last 3 Months [...] the past 12 months, has t he [employer], gas, oil, or water [employer] threatened to shut off services in your [...] speak a language other than Chinese at [facility]? No 09/22/2023 Do you want help [...] Procedure Name Priority Date/Time Associated Diagnosis Comments [facility] CBC SCAN Routine 05/21/2025 3:30 [...] Estimate Adequate Adequate 05/21/2025 4:03 PM EST [facility] RBC Morphology abnormal(A) Normal 4:03 PM EST [facility] Anisocytosis 2+ 05/21/2025 4:03 PM EST [facility] Hypochromia 2+ 05/21/2025 4:03 PM EST [facility] Microcytes 3+ 05/21/2025 4:03 PM EST [facility] Blood 05/21/2025 3:30 PM EST 05/21/2025 3:34 PM EST us Clifton Parr MD LAB BLOOD ORDERABLES Final R esult [facility] [address] [place] [address] * (ABNORMAL) CBC - Hemogram (SJ-BKR) (05/21/2025 3:30 PM EST) WBC 5.0 4.8 - 10.8 K/ L 05/21/2025 4:02 PM EST [facility] RBC 2.79(L) 3.80 - 5.20 M/ L 05/21/2025 4:02 PM [facility] Hemoglobin 4.7(LL) 12.8 - 17.4 GM/DL 05/21/2025 4:02 PM [facility] Hematocrit 19.0(L) 39.0 - 51.0 % 05/21/2025 4:02 PM [facility] MCV 68(L) 81 - 101 fL 05/21/2025 4:02 PM [facility] MCH <20.0(L) 27.0 - 34.0 pg 05/21/2025 4:02 PM [facility] MCHC <28.0(L) 32.0 - 36.0 GM/DL 05/21/2025 4:02 PM [facility] RDW 24.7(H) 11.5 - 14.5 % 05/21/2025 4:02 PM [facility] Platelets 342 150 - 400 K/CU MM 05/21/2025 4:02 PM [facility] MPV 10.2 9.4 - 12.4 fL 05/21/2025 4:02 PM [facility] Blood 05/21/2025 3:30 PM EST 05/21/2025 3:34 PM EST us Clifton Parr MD LAB BLOOD ORDERABLES Final R esult [facility] [address] [place] [address] * (ABNORMAL) Urinalysis, Reflex Microscopic and Culture If Indicated (05/14/2025 2:30 AM EST) Color, UA Straw 05/14/2025 4:31 PM [facility] Clarity, UA Clear 05/14/2025 4:31 PM [facility] Specific [place], UA <=1.005 1.002 - 1.030 05/14/2025 4:31 PM [facility] pH, UA 7.0 5.0 - 9.0 05/14/2025 4:31 PM EST [facility] Leukocytes, UA 3+(A) Negative 05/14/2025 4:31 PM EST [facility] Nitrite, UA Negative Negative 05/14/2025 4:31 PM EST [facility] Protein, UA Negative Negative 05/14/2025 4:31 PM EST [facility] Glucose, UA Negative Negative 05/14/2025 4:31 PM EST [facility] Ketones, UA Negative Negative 05/14/2025 4:31 PM [facility] Bilirubin, UA Negative Negative 05/14/2025 4:31 PM EST [facility] Blood, UA Negative Negative 05/14/2025 4:31 PM [facility] Urobilinogen, UA 0.2 mg/dL Normal 05/14/2025 4:31 PM [facility] Specimen Source random 05/14/2025 4:31 PM [facility] Urine 05/14/2025 2:30 AM EST 05/14/2025 4:24 PM EST Clifton Parr MD URINE ORDERABLES Final Resul t [facility] [address] [place] [address] * (ABNORMAL) Urinalysis Microscopic Only (05/14/2025 2:30 AM EST) WBC, UA 5-10(A) None Seen, Occasional , 0-5 /HPF 05/14/2025 4:51 PM EST [facility] RBC, UA 0-5(A) None Seen, Rare /HPF 05/14/2025 4:51 PM EST [facility] Bacteria, UA 2+(A) None Seen 05/14/2025 4:51 PM EST [facility] SQUAMOUS EPITHELIAL 0-5(A) None Seen, Rare /HPF 05/14/2025 4:51 PM EST [facility] Urine 05/14/2025 2:30 AM EST 05/14/2025 4:24 PM EST us Clifton Parr MD URINE ORDERABLES Final Resul t [facility] [address] [place] [address], [facility] [phone] * Stool Culture (04/03/2025 8:30 AM EDT) Result No Salmonella, Shigella, Campylobacter , E.coli: 0157 screen negative. Normal enteric asaf isolated 04/06/2025 7:55 AM EST [facility] Feces FECES / Unknown 04/03/2025 8 :30 AM EDT 04/03/2025 11:54 AM EDT us Clifton Parr MD MICROBIOLOGY - GENERAL ORDER NANI Final Result [facility] [address] [place], [place] [address] [phone] * C Difficle (04/03/2025 8:30 AM EDT) CDIFF RESULT Negative Negative 04/03/2025 3:43 PM EDT [facility] C. Difficile Ribotype 027 Presumptive Negative Presumptive Negative 04/03/2025 3:43 PM EDT [facility] Stool 04/03/2025 8:30 AM EDT 04/03/2025 11:54 AM EDT Narrative [facility] - 04/03/2025 3:43 PM EDT [...] FLUIDS AND STOOLS ORDER NANI Final Result [facility] [address] [place] [address] * (ABNORMAL) Wound Culture + Gram Stain (04/03/2025 8:30 AM EDT) Result Heavy Growth Staphylococcus aureus(A) 04/07/2025 7:36 AM [facility] Result Moderate Growth Klebsiella aerogenes(A) 04/07/2025 7:36 AM [facility] Result Heavy Growth Coagulase negative Staphylococcus(A) 04/07/2025 7:36 AM [facility] Result Heavy Growth Corynebacterium species(A) 04/07/2025 7:36 AM [facility] Gram Stain Result Few WBCs 04/07/2025 7:36 AM [facility] Gram Stain Result Many gram positive cocci in pairs and clusters 04/07/2025 7:36 AM [facility] Gram Stain Result Rare gram positive rods 04/07/2025 7:36 AM [facility] Wound HEEL STRUCTURE / Unknown 04/03/2025 8:30 AM EDT 04/03/2025 11:54 AM EDT Narrative [facility] - 04/07/2025 7:36 AM EST [...] MICROBIOLOGY - GENERAL ORDER NANI Final Result [facility] [address] [place] [address], [facility] [phone] [facility] [address] [place] [address], [facility] [phone] from Last 3 Months Additional Health Concerns Infection Onset Date Last Indicated MDR E.coli (C) Comment:ESBL/MDR 09/26/2023 09/26/2023 Insurance [facility] MEDICARE PART A B Advance Directives For more information, please contact: [phone] Documents on File Type Date Recorded Patient Inspector Subassembly Expl anation Power of Practice Physician 09/22/2023 * DNR - Limited Additional Intervention (Latest Code Status on File) Date Activated Date Inactivated Comments 09/22/2023 6:40 PM 09/27/2023 6:02 PM
--- OUTSIDE RECORDS SUMMARY | 2025-05-22 08:19 | XMS_ITS | Encounter Summary ---
Author Organization Healthcare Address [address] [place] [address] Care Team Providers Care Systems Requirements Planner Name Role Phone Paulo Brody Primary Care Provider [phone] Encounter Details Date Type Department Care Team (Late st Contact Info) Description 03/24/2025 Orders Only [facility] Endocrinology [address] [place] [address] Elayne Campbell S, SEAM PRESSER [address] [facility] [address] [place] [address] Social History Tobacco Use Types [...] 08/28/2025 9:40 AM EDT [facility] [address] [place] [address] Elayne Campbell, SEAM PRESSER [address] [facility] [address] [place] [address] documented as of this encounter Visit Diagnoses Not on filedocumented in this encounter Additional Health Concerns Assessment Noted Time A fall risk assessment has been complete d for the patient 11/27/2023 3:20 PM EDT A Body Mass Index follow-up plan has been documented for the patient 12/19/2024 10:39 AM EDT documented as of this encounter Care Teams Systems Requirements Planner Relationship Specialty Start Date End Date Paulo Brody DO [address] [place] [address] PCP - General 08/01/23 documented as of this encounter
--- OUTSIDE RECORDS SUMMARY | 2025-05-22 08:19 | XMS_ITS | Clinical Summary ---
Author Organization [facility] Address [address] [place] [address] Care Team Providers Care Employment Director Name Role Phone Paulo Brody Primary Care Provider [phone] Allergies Active Allergy Reactions Criticality Noted Date [...] time each day. 11/26/19 24 Active Nystop [id number] UNIT/GM powder APPLY TOPICALLY TO THE AFFECTED [...] Type Department Care Team Description 05/21/2025 Telephone [facility] Endocrinology [address] [place] [address] Elayne Campbell APRN HCN - Patient Message 05/15/2025 9:40 AM EST Office Visit [facility] Endocrinology [address] [place] [address] Elayne Campbell, CONFIGURATION MANAGEMENT SPECIALIST Type 2 diabetes mellitus with diabetic neuropathy, with long-term current use of insulin (Primary Dx); Hypothyroidism, unspecified type; Neuropathy; Mixed hyperlipidemia 05/15/2025 Telephone [facility] Endocrinology [address] [place] [address] Elayne Campbell APRN 03/24/2025 Orders Only [facility] Endocrinology [address] [place] [address] Elayne Campbell APRN 03/24/2025 Telephone [facility] Endocrinology [address] [place] [address] Pierce Mckeon from Last 3 [...] Visit [facility] [address] [place] [address] Elayne Campbell, CONFIGURATION MANAGEMENT SPECIALIST [address] [place] [address] Health Maintenance Due Date Last [...] 2007 [facility]Y-Abdominal Aortic Aneurysm (AAA) Screening 2022 [id number] Vaccine (3 - season) 2025 04/20/2021, 09/30/2020 [...] Venous blood specimen / Unknown Elayne Campbell CONFIGURATION MANAGEMENT SPECIALIST LAB BLOOD ORDERABLES Final Result * Acute Hepatitis Panel (04/30/2018 10:09 AM EST) Hepatitis B Surf Antigen NEGATIVE Reference Value: Negative [facility] Hepatitis C Antibody NEGATIVE Reference Range: Negative [facility] Hepatitis A Antibody IgM NEGATIVE Reference Value: Negative [facility] External Hepatitis B Core IgM (HBCM) NEGATIVE Reference Value: Negative [facility] 04/30/2018 10:0 9 AM EST 04/30/2018 10:17 AM EST Sara Ching CONFIGURATION MANAGEMENT SPECIALIST LAB BLOOD ORDERABLES Final R esult [facility] from Last 3 Months or Most Recently Relevant to Health Maintenance Insurance [facility] Advance Directives Documents on File Type Date Recorded Patient Supervisor Die Casting Expl anation Power of Digital Photo Printer 05/20/2024 power of a ttorney Care Teams Employment Director Relationship Specialty Start Date End Date Paulo Brody DO [address] [place] [address] PCP - General 08/01/23
--- OUTSIDE RECORDS SUMMARY | 2025-05-22 08:19 | XMS_ITS | Clinical Summary ---
[facility] Address [address] [place] [address] Care Team Providers Care Flatbed Press Operator Name Role Phone Provider, No Known Primary [...] AAA SCREEN ONCE Completed 08/25/2022, 04/30/2018 Insurance [facility] Care Teams Flatbed Press Operator Relationship Specialty Start Date End Date Provider, [place] [address] PCP - General 06/14/17
--- OUTSIDE RECORDS SUMMARY | 2025-05-22 08:19 | XMS_ITS | Clinical Summary ---
Author Organization [facility] Address [address] [place] [address] Care Team Providers Care Data Base Design Analyst Name Role Phone System, Provider Not In [...] therelease of HIV test results or diagnoses. [id number] Allergies No known active allergies Medications [...] Advance Directives For more information, please contact: [phone] Documents on File Type Date Recorded Patient Shroudman Expl anation Durable Power of Steel Wheel Engraver - scan 08/25/2022 11:34 PM * DNRCC-A (Latest Code Status on File) Date Activated Date Inactivated Comments 08/26/2022 5:45 AM 08/26/2022 11:12 PM Okay for in tubation * Full Code Date Activated Date Inactivated Comments 08/26/2022 5:40 AM 08/26/2022 5:45 AM Care Teams Data Base Design Analyst Relationship Specialty Start Date End Date System, Provider Not In PCP - General 08/25/22
--- OUTSIDE RECORDS SUMMARY | 2025-05-22 08:19 | XMS_ITS | Clinical Summary ---
Author Organization [employer] ([place], [place], [place], [place], [place]) Address [address] [place] [address] Care Team Providers Care Performance Improvement Manager Name Role Phone Unavailable Primary Care [...] Department Care Team Description 05/21/2025 Lab Requisition [facility] [address] [place] [address] Clifton Parr MD 05/14/2025 Lab Requisition [facility] [address] [place] [address] Clifton Parr MD Urinary tract infection, site not specified 05/14/2025 Travel 04/03/2025 Lab Requisition [facility] [address] [place] [address] Clifton Parr MD from Last 3 Months [...] Do you speak a language other than [facility]? No 09/22/2023 Do you want help [...] Procedure Name Priority Date/Time Associated Diagnosis Comments [facility] Routine 05/21/2025 3:30 PM [...] Estimate Adequate Adequate 05/21/2025 4:03 PM EST [facility] RBC Morphology abnormal(A) Normal 4:03 PM [facility] Anisocytosis 2+ 05/21/2025 4:03 PM [facility] Hypochromia 2+ 05/21/2025 4:03 PM [facility] Microcytes 3+ 05/21/2025 4:03 PM [facility] Blood 05/21/2025 3:30 PM EST 05/21/2025 3:34 PM EST us Clifton Parr MD LAB BLOOD ORDERABLES Final R esult [facility] [address] [place], [place] [address] [phone] * (ABNORMAL) CBC - Hemogram (SJ-BKR) (05/21/2025 [...] MD LAB BLOOD ORDERABLES Final R esult [facility] [address] [place] [address], [facility] [[email or web address]] [phone] * (ABNORMAL) Urinalysis, Reflex Microscopic and Culture If Indicated (05/14/2025 2:30 AM EST) Color, UA Straw 05/14/2025 4:31 PM [facility] Clarity, UA Clear 05/14/2025 4:31 PM [facility] Specific [place], UA <=1.005 1.002 - 1.030 05/14/2025 4:31 [...] Specimen Source random 05/14/2025 4:31 PM EST [facility] Urine 05/14/2025 2:30 AM EST 05/14/2025 4:24 PM EST us Clifton Parr MD URINE ORDERABLES Final Resul t Performing Organization Address [facility] Co de Phone Number [facility] [address] [place] [address] * (ABNORMAL) Urinalysis Microscopic Only (05/14/2025 2:30 AM EST) WBC, UA 5-10(A) None Seen, Occasional , 0-5 /HPF 05/14/2025 4:51 PM EST [facility] RBC, UA 0-5(A) None Seen, Rare /HPF 05/14/2025 4:51 PM EST [facility] Bacteria, UA 2+(A) None Seen 05/14/2025 4:51 PM EST [facility] SQUAMOUS EPITHELIAL 0-5(A) None Seen, Rare /HPF 05/14/2025 4:51 PM EST [facility] Urine 05/14/2025 2:30 AM EST 05/14/2025 4:24 PM EST us Clifton Parr MD URINE ORDERABLES Final Resul t Performing Organization Address [facility] Co de Phone Number [facility] [address] [place] [address] * Stool Culture (04/03/2025 8:30 AM EDT) Result No Salmonella, Shigella, Campylobacter , E.coli: 0157 screen negative. Normal enteric asaf isolated 04/06/2025 7:55 AM EST [facility] Feces FECES / Unknown 04/03/2025 8 :30 AM EDT 04/03/2025 11:54 AM EDT us Clifton Parr MD MICROBIOLOGY - GENERAL ORDER NANI Final Result Performing Organization Address City/[facility]/ZIP Co de Phone Number [facility] [address] [place] [address], [facility] [[email or web address]] [phone] * C Difficle (04/03/2025 8:30 AM EDT) CDIFF RESULT Negative Negative 04/03/2025 3:43 PM EDT [facility] C. Difficile Ribotype 027 Presumptive Negative Presumptive Negative 04/03/2025 3:43 PM EDT [facility] Stool 04/03/2025 8:30 AM EDT 04/03/2025 11:54 AM EDT Narrative [facility] - 04/03/2025 3:43 PM EDT [...] ORDER NANI Final Result Performing Organization Address City/[facility]/ZIP Co de Phone Number [facility] [address] [place] [address], [facility] [[email or web address]] [phone] * (ABNORMAL) Wound Culture + Gram Stain (04/03/2025 8:30 AM EDT) Result Heavy Growth Staphylococcus aureus(A) 04/07/2025 7:36 AM EST [facility] Result Moderate Growth Klebsiella aerogenes(A) 04/07/2025 7:36 AM EST [facility] Result Heavy Growth Coagulase negative Staphylococcus(A) 04/07/2025 7:36 AM EST [facility] Result Heavy Growth Corynebacterium species(A) 04/07/2025 7:36 AM EST [facility] Gram Stain Result Few WBCs 04/07/2025 7:36 AM EST [facility] Gram Stain Result Many gram positive cocci in pairs and clusters 04/07/2025 7:36 AM EST [facility] Gram Stain Result Rare gram positive rods 04/07/2025 7:36 AM EST [facility] Wound HEEL STRUCTURE / Unknown 04/03/2025 8:30 AM EDT 04/03/2025 11:54 AM EDT Narrative [facility] - 04/07/2025 7:36 AM EST [...] MICROBIOLOGY - GENERAL ORDER NANI Final Result [facility] [address] [place] [address], [facility] [[email or web address]] [phone] [facility] [address] [place] [address], [facility] [[email or web address]] [phone] from Last 3 Months Additional Health Concerns Infection Onset Date Last Indicated MDR E.coli (C) Comment:ESBL/MDR 09/26/2023 09/26/2023 Insurance [facility] MEDIC[facility] PART A B Advance Directives For more information, please contact: [phone] Documents on File Type Date Recorded Patient Streetcar Operator Expl anation Power of Sorting Machine Operator 09/22/2023 * DNR - Limited Additional Intervention (Latest Code Status on File) Date Activated Date Inactivated Comments 09/22/2023 6:40 PM 09/27/2023 6:02 PM
--- OUTSIDE RECORDS SUMMARY | 2025-05-22 08:19 | XMS_ITS | Encounter Summary ---
Author Organization Healthcare Address [address] [place] [address] Care Team Providers Care Manager Wealth Management Name Role Phone Paulo Brody Primary Care Provider [phone] Encounter Details Date Type Department Care Team (Late st Contact Info) Description 05/15/2025 Telephone [facility] Endocrinology [address] [place] [address] Elayne Campbell, CITY SECRETARY [address] [facility] [address] [place] [address] Social History Tobacco Use Types [...] 9:40 AM EDT Office Visit [facility] Endocr[facility]ology [address] [place] [phone] Elayne Campbell APRN [address] [facility] [address] [place] [phone] documented as of this encounter Visit Diagnoses Not on filedocumented in this encounter Additional Health Concerns Assessment Noted Time A fall risk assessment has been complete d for the patient 11/27/2023 3:20 PM EDT A Body Mass Index follow-up plan has been documented for the patient 05/15/2025 10:09 AM EST documented as of this encounter Care Teams Manager Wealth Management Relationship Specialty Start Date End Date Paulo Brody DO [address] [place] [id number] PCP - General 08/01/23 documented as of this encounter
--- OUTSIDE RECORDS SUMMARY | 2025-05-22 08:20 | XMS_ITS | Encounter Summary ---
Author Organization [employer] ([place], [place], [place], [place], [place]) Address [address] [place] [address] Care Team Providers Care Form Setter Name Role Phone Unavailable Primary Care Provider Unavailabl e Encounter Details Date Type Department Care Team (Late st Contact Info) Description 04/03/2025 Lab Requisition [facility] [address] [place] [address] Clifton Parr MD [address] [place] [address] Social History Tobacco Use Types [...] Do you [facility] a [facility] 09/22/2023 Do you want help [...] Heavy Growth Staphylococcus aureus(A) 04/07/2025 7:36 AM [facility] Result Moderate Growth Klebsiella aerogenes(A) 04/07/2025 7:36 AM [facility] Result Heavy Growth Coagulase negative Staphylococcus(A) 04/07/2025 7:[address] [facility] Result Heavy Growth Corynebacterium species(A) 04/07/2025 7:[address] [facility] Gram Stain Result Few WBCs 04/07/2025 7:36 AM EST [facility] Gram Stain Result Many gram positive cocci in pairs and clusters 04/07/2025 7:36 AM EST [facility] Gram Stain Result Rare gram positive rods 04/07/2025 7:36 AM EST [facility] Wound HEEL STRUCTURE / Unknown 04/03/2025 8:30 AM EDT 04/03/2025 11:54 AM EDT [facility] - 04/07/2025 7:36 AM EST Mixed [...] - GENERAL ORDER NANI Final Result [facility] [address] [place] [address] [facility] [address] [place] [address] * Stool Culture (04/03/2025 8:30 AM EDT) Result No Salmonella, Shigella, Campylobacter , E.coli: 0157 screen negative. Normal enteric asaf isolated 04/06/2025 7:[address] [facility] Feces FECES / Unknown 04/03/2025 8 :30 AM EDT 04/03/2025 11:54 AM EDT Clifton Parr MD MICROBIOLOGY - GENERAL ORDER NANI Final Result Performing Organization Address [facility]/ZIP Co de Phone Number [facility] [address] [phone] * C Difficle (04/03/2025 8:30 AM EDT) CDIFF RESULT Negative Negative 04/03/2025 3:[address] [facility] C. Difficile Ribotype 027 Presumptive Negative Presumptive Negative 04/03/2025 3:[address] [facility] Stool 04/03/2025 8:30 AM EDT 04/03/2025 11:[address] [facility] - 04/03/2025 3:43 PM EDT [...] AND STOOLS ORDER NANI Final Result [facility] [address] [phone] documented in this encounter Visit Diagnoses Not on filedocumented in this encounter Additional Health Concerns Infection Onset Date Last Indicated Resolved Time MDR E.coli (C) Comment:ESBL/MDR 09/26/2023 09/26/2023 documented as of this encounter
--- OUTSIDE RECORDS SUMMARY | 2025-05-22 08:20 | XMS_ITS | Encounter Summary ---
Author Organization [employer] ([place], [place], [place], [place], [place]) Address [address] [place] [address] Care Team Providers Care Industrial Paramedic Name Role Phone Unavailable Primary Care Provider Unavailabl e Encounter Details Date Type Department Care Team (Late st Contact Info) Description 05/14/2025 Lab Requisition [facility] [address] [place] [phone] Clifton Parr MD [address] [place] [address] Urinary tract infection, site not specified Social [...] speak a language other than [place] at [facility]? No 09/22/2023 Do you [...] 05/14/2025 4:51 PM EST [facility] RBC, UA 0-5(A) None Seen, Rare /HPF 05/14/2025 4:51 PM EST [facility] Bacteria, UA 2+(A) None Seen 05/14/2025 4:51 PM EST [facility] SQUAMOUS EPITHELIAL 0-5(A) None Seen, Rare /HPF 05/14/2025 4:51 PM EST [facility] Urine 05/14/2025 2:30 AM EST 05/14/2025 4:24 PM EST us Clifton Parr MD URINE ORDERABLES Final Resul t [facility] [address] [phone] * (ABNORMAL) Urinalysis, Reflex Microscopic and Culture If Indicated (05/14/2025 2:30 AM EST) Color, UA Straw 05/14/2025 4:31 PM [facility] Clarity, UA Clear 05/14/2025 4:31 PM [facility] Specific [place], UA <=1.005 1.002 - 1.030 05/14/2025 4:31 PM EST [facility] pH, UA 7.0 5.0 - 9.0 05/14/2025 4:31 PM [facility] Leukocytes, UA 3+(A) Negative 05/14/2025 4:31 PM EST [facility] Nitrite, UA Negative Negative 05/14/2025 4:31 PM EST [facility] Protein, UA Negative Negative 05/14/2025 4:31 PM [facility] Glucose, UA Negative Negative 05/14/2025 4:31 PM EST [facility] Ketones, UA Negative Negative 05/14/2025 4:31 PM [facility] Bilirubin, UA Negative Negative 05/14/2025 4:31 PM EST [facility] Blood, UA Negative Negative 05/14/2025 4:31 PM EST [facility] Urobilinogen, UA 0.2 mg/dL Normal 05/14/2025 4:31 PM EST [facility] Specimen Source random 05/14/2025 4:31 PM EST [facility] Urine 05/14/2025 2:30 AM EST 05/14/2025 4:24 PM EST us Clifton Parr MD URINE ORDERABLES Final Resul t [facility] [address] [place] [address] documented in this encounter Visit Diagnoses Diagnosis Urinary tract infection, site not specified documented in this encounter Additional Health Concerns Infection Onset Date Last Indicated Resolved Time MDR E.coli (C) Comment:ESBL/MDR 09/26/2023 09/26/2023 documented as of this encounter
--- OUTSIDE RECORDS SUMMARY | 2025-05-22 08:20 | XMS_ITS | Data Portability ---
Author Organization [facility] NERISSA Preston DEVOL CLOSED Address [address] [facility] [address] [place] [address] Care Team Providers Care Career Development Associate Name Role Phone BLADE TOURE Primary Care Provider [phone] Assessment No assessment recorded. 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 Procedures Surgical History Date Name Laterality Status Provider Name and Address Organization Details Recorded Time 4 Cystoscopy completed ALANA KELLEY MD [address] [place] [address], [phone] 09/28/2023 08:19:55 partial repair of rotator cuff completed Charles Lezama [facility] 04/24/2023 14:57:08 Imaging Results None recorded. Procedure Notes None recorded. Medical Equipment None Reported. Allergies Allergen ID Allergen Name Allergen Category Reaction Reaction Severity Criticality Documentation Date Start Date Code Code System Note Provider Name and Address Organization Details Recorded Time 291424 morphine sulfate medicatio n Not available Not available Not available 04/28/20162014 18225 RxNorm Comme nt: Creat ed By: Hever corona;Adenike luo Date: 2014 3:03: 33 PM; Not Available [facility] 6 03:28:58 515553 Neurontin medicatio n Not available Not available Not available 04/24/2023 04049 8 [facility] 14:54:57 Medications Name Sig [...] active ESBL Ecoli UTI while admitted to [facility] Not Available Not Available Not Available [facility] [...] Updated DateTime 10/04/2023 177.8 cm 33 kg/m2 732308.25 g Adele Hernandez [facility] 10/04/2023 10:37:53 Date Recorded Body height Body mass index (BMI) Body weight Provider Name and Address Organization Details Last Updated DateTime 04/24/2023 180.34 cm 30.7 kg/m2 22053.32 g anil [facility] 04/24/2023 14:51:07 Date Recorded Body height Body mass index (BMI) Body weight Provider Name and Address Organization Details Last Updated DateTime 05/17/2023 177.8 cm 33 kg/m2 560051.25 g [facility] 05/17/2023 13:51:19 Social History Question Answer Notes LastModified by Organizat ion Details LastModified Time Tobacco Smoking Status Former Smoker Charles Lezama dior, [facility] 04/24/2023 14:57:42 What Was The Date Of Your Most Recent Tobacco Screening? 10/04/2023 Information not available 10/04/2023 Has Tobacco Cessation Counseling Been Provided? No [email or web address] Information not available 04/24/2023 Sex: Male Functional Status Question Answer Note LastModified by Organizat ion Details LastModified Time Do you use any illicit or recreational drugs? No [email or web address] Information not available 04/24/2023 Do you or have you ever used any other forms of tobacco or nicotine? No [email or web address] Information not available 04/24/2023 What is your level of alcohol consumption? Occasional [email or web address] Information not available 04/24/2023 Are you currently employed? No [email or web address] Information not available 04/24/2023 Mental Status None recorded. Family History Relationship Description Onset Age of this Age Resolved Age Notes LastModified by Organization Details LastModified Time Brother Diabetes mellitus Not available 04/05 14:58:11 Daughter Diabetes mellitus [email or web address] Not available 04/05 14:58:11 Maternal Aunt Family history of malignant neoplasm [email or web address] Not available 04/05 14:58:42 Maternal Uncle Family history of malignant neoplasm [email or web address] Not available 04/05 14:58:42 Medical History Condition Response Anxiety Disorder Y Diabetes Y Anemia Y Arthritis Y Chronic Obstructive Pulmonary Disease Y High Cholesterol Y Emphysema Y Hypertension Y Depression Y Asthma Y Past Encounters Encounter ID Performer Location Encounter Start Date Encounter Closed Date Diagnosis/Indication Diagnosis SNOMED-CT Code Diagnosis ICD10 Code Diagnosis IMO Codes Diagnosis Note [id number] [facility] [address] 09/04/2016 17:32:18 09/04/2016 17:32:18 [id number] EUSEBIO CHEN MD [facility] [address] [place] [address] 04/24/2023 14:04:08 04/24/2023 15:11:41 Retention of urine 472665592 R33.9 Benign pro static hyperplasia with outflow obstruction 763827728 N40.1 [id number] MD [facility] [address] [place] [address] 05/17/2023 13:02:31 05/17/2023 14:20:18 Retention of urine 906716269 R33.9 Benign pro static hyperplasia with outflow obstruction 979716353 N40.1 [id number] MD [facility] [address] [place] [address] 10/04/2023 10:18:19 10/04/2023 10:49:26 Retention of urine 592512354 R33.9 Health Concerns Section Related Observation LastModified by Organization Detai ls LastModified Time None Recorded Concern Status LastModified by Organization Details LastModified Time None Recorded Advance Directives Directive None Recorded Payers Insurance Date Sequence Insurance Name Policy Number Policy Alex Covered Member ID Alex Member ID Guarantor Name 10/04/2023 2 [facility] (MEDICARE SUPPLEMENT) Adeel Nichole [id number] Adeel Nichole 04/24/[address] [facility] ([facility]PL[facility] - HMO) [place] Adeel Nichole Jr [id number] Adeel Nichole 04/24/2023 3 [facility] ([facility]ICA[facility]PLAC[facility] - HMO) Adeel Deweyp [id number] Adeel Deweyp 10/04/2023 1 [employer] (MEDICARE[place] Adeel Nichole Jr [id number] Adeel Nichole Notes Date Note Type [...] postvoid residual EUSEBIO CHEN MD [address] [place], [address], [facility] 04/24/2023 16:24:37 05/17/2023 text/html He failed a voiding trial and catheter is back in place. We talked about surgical intervention but he is a very high risk for any anesthesia. He would prefer just to keep the catheter. He does have home health. Will have him change his catheter every 4 to 6 weeks. EUSEBIO CHEN MD [address] [place], [address], [facility] 05/17/2023 14:30:08 10/04/2023 text/html Visiting [...] monthly basis EUSEBIO CHEN MD [address] [place], [address], [facility] 10/04/2023 10:55:05
--- OUTSIDE RECORDS SUMMARY | 2025-05-22 08:20 | XMS_ITS | Encounter Summary ---
Author Organization [employer] ([place], [place], [place], [place], [place]) Address [address] [place] [address] Care Team Providers Care Chief Physical Therapist Name Role Phone Unavailable Primary Care Provider [...] Do you speak a language other than Jamaican at [facility]? No 09/22/2023 Do you want help with [...]
--- NOTE | 2025-05-22 08:25 | EXP.PHA.CONS ---
Pharmacy Consult Date: 05/22/25 Time: 08:25 Referring provider: DR. WINTER Reason for Consult:: VANCOMYCIN DOSING Allergies Allergy/AdvReac Type Severity Reaction Status Date / Time gabapentin (From Neurontin) Allergy Intermediate Rash Verified 05/19/25 13:57 Home Medications ?Medication ?Instructions ?Recorded ?Confirmed ?Type aspirin 81 mg chewable tablet 81 mg PO DAILY 03/29/23 05/21/25 History semaglutide 2 mg/dose (8 mg/3 mL) 2 mg SQ WEEKLY 06/14/23 05/21/25 History subcutaneous pen injector (Ozempic) insulin glargine 100 unit/mL (3 110 unit SQ DAILY 05/12/24 05/21/25 History mL) subcutaneous pen (Basaglar KwikPen U-100 Insulin) hydrocortisone 1 % topical spray 1 applic topical BID psoarsis #50 05/13/24 05/21/25 Rx (Anti-Itch (hydrocortisone)) mL nitroglycerin 0.4 mg sublingual 0.4 mg sublingual Q5-15M PRN chest 05/14/24 05/21/25 Rx tablet pain #30 tabs atorvastatin 40 mg tablet 40 mg PO HS 05/16/24 05/21/25 History cetirizine 10 mg capsule (All Day 10 mg PO DAILY PRN Allergy Symptoms 05/16/24 05/21/25 History Allergy (cetirizine)) cholecalciferol (vitamin D3) 50 50 mcg PO DAILY 05/16/24 05/21/25 History mcg (2,000 unit) capsule insulin aspart U-100 100 unit/mL 1 sliding scale dose SQ .COMPLEX 05/16/24 05/21/25 Rx (3 mL) subcutaneous pen (Novolog Diabetes #15 mL FlexPen U-100 Insulin aspart) albuterol sulfate 90 mcg/actuation 1 inh inhalation QID COPD #8.5 05/20/24 05/21/25 Rx aerosol inhaler grams albuterol sulfate 0.63 mg/3 mL 0.63 mg (3 mL) inhalation Q6H COPD 05/21/24 05/21/25 Rx solution for nebulization #360 mL spironolactone 25 mg tablet 25 mg PO DAILY 90 days #90 tabs 06/12/24 05/21/25 Rx levothyroxine 75 mcg tablet 75 mcg PO .COMPLEX #4 tabs 08/20/24 05/21/25 Rx promethazine 12.5 mg tablet 12.5 mg PO Q4-6H PRN nausea and 10/13/24 05/21/25 Rx vomiting #60 tabs ondansetron HCl 4 mg tablet 4 mg PO Q8H PRN nausea and 11/03/24 05/21/25 Rx vomiting 5 days #20 tabs methenamine hippurate 1 gram tablet 1 g PO DAILY #90 tabs 12/17/24 05/21/25 Rx furosemide 40 mg tablet 40 mg PO BID 30 days #60 tabs 01/12/25 05/21/25 Rx ranolazine 500 mg tablet,extended 500 mg PO BID #180 tabs 02/12/25 05/21/25 Rx release,12 hr tizanidine 4 mg tablet See Rx Instructions .Route 03/09/25 05/21/25 Rx .COMPLEX #180 tabs pantoprazole 40 mg tablet,delayed See Rx Instructions .Route 03/16/25 05/21/25 Rx release .COMPLEX #90 tabs topiramate 100 mg tablet (Topamax) 100 mg PO BID #60 tabs 03/27/25 05/21/25 Rx diazepam 5 mg tablet 5 mg PO TID 90 days #270 tabs 04/21/25 05/21/25 Rx pregabalin 100 mg capsule 100 mg PO TID 90 days #270 caps 04/21/25 05/21/25 Rx aripiprazole 5 mg tablet 5 mg PO DAILY #90 tabs 05/18/25 05/21/25 Rx metoprolol succinate 25 mg 25 mg PO BID #180 tabs 05/18/25 05/21/25 Rx tablet,extended release 24 hr nystatin 100,000 unit/gram topical See Rx Instructions .Route 05/18/25 05/21/25 Rx powder (Nystop) .COMPLEX #30 grams potassium chloride 20 mEq See Rx Instructions .Route 05/18/25 05/21/25 Rx tablet,extended release(part/cryst) .COMPLEX #90 tabs rivaroxaban 15 mg tablet 15 mg PO QPMWITHMEAL Blood 05/18/25 05/21/25 Rx thinner/AFIB 90 days #90 tabs Heel Protectors (dme) #1 ea 05/19/25 05/21/25 Rx collagenase clostridium histo. 250 1 applic topical DAILY PRN wound 05/19/25 05/21/25 Rx unit/gram topical ointment (Santyl) care 30 days #90 grams oxycodone 15 mg tablet 15 mg PO QID PRN pain #120 tabs 05/19/25 05/21/25 Rx allopurinol 300 mg tablet 300 mg PO DAILY #90 tabs 05/20/25 05/21/25 Rx montelukast 10 mg tablet 10 mg PO HS #90 tabs 05/20/25 05/21/25 Rx New Prescriptions to Start Prescriptions: Height: 1.8 m Weight: 85.9 kg Laboratory Results:: Laboratory Results - last 24 hr 05/21/25 18:20: WBC 6.3, RBC 2.67 L, Hgb 4.4 L*, Hct 18.0 L*, MCV 67.4 L, MCH 16.5 L, MCHC 24.4 L, RDW 24.8 H, Plt Count 380, MPV 9.6, Neut % (Auto) 59.1, Lymph % (Auto) 28.5, [place] % (Auto) 10.6 H, Eos % (Auto) 1.0, Baso % (Auto) 0.2, Neut # (Auto) 3.7, Lymph # (Auto) 1.8, [place] # (Auto) 0.7, Eos # (Auto) 0.1, Baso # (Auto) 0.0, Retic Count (auto) 3.8 H, PT 14.6 H, INR 1.34 H, APTT 46.9 H, Sodium 131 L, Potassium 5.2 H, Chloride 106, Carbon Dioxide 19 L, Anion Gap 11.2, BUN 18, Creatinine 1.10, Estimated GFR 67, Est GFR ( Amer) 81, Glucose 76, Lactate 1.2, Calcium 8.9, Phosphorus 4.9 H, Magnesium 1.8, Iron 25 L, TIBC 347, Iron Saturation 7.36869 L, Ferritin 18.9, Total Bilirubin 0.4, AST 70 H, ALT 24, Alkaline Phosphatase 89, Troponin I < 0.01, NT-Pro-B Natriuret Pep 389 H, Total Protein 6.5, Albumin 3.3 L, Globulin 3.2, Albumin/Globulin Ratio 1.0 L, Lipase 69, Vitamin B12 991 H, Folate > 20.00, TSH 0.63, Free T4 2.35 H, Blood Type O Positive, Antibody Screen Negative, Crossmatch (AHG) See Detail 05/21/25 18:49: Urine Color Yellow, Urine Appearance Clear, Urine pH 6.5, Ur Specific [place] 1.010, Urine Protein Negative, Urine Glucose (UA) Negative, Urine Ketones Negative, Urine Blood 1+ A, Urine Nitrate Negative, Urine Bilirubin Negative, Urine Urobilinogen 0.2, Ur Leukocyte Esterase 3+ A, Urine RBC 50-100, Urine WBC Tntc, Ur Squamous Epith Cells 20-50, Urine Bacteria 4+ 05/21/25 21:22: Troponin I < 0.01 05/22/25 04:25: WBC 6.8, RBC 3.56 L D, Hgb 7.0 L, Hct 27.2 L, MCV 76.4 L, MCH 20.5 L, MCHC 26.8 L, RDW 27.0 H*, Plt Count 303, MPV 10.1, Neut % (Auto) 68.8, Lymph % (Auto) 17.4, [place] % (Auto) 12.2 H, Eos % (Auto) 0.6, Baso % (Auto) 0.3, Neut # (Auto) 4.7, Lymph # (Auto) 1.2, [place] # (Auto) 0.8, Eos # (Auto) 0.0, Baso # (Auto) 0.0, Sodium 134 L, Potassium 4.6, Chloride 105, Carbon Dioxide 18 L, Anion Gap 15.6 H, BUN 17, Creatinine 1.00, Estimated Creat Clear 86, Estimated GFR 74, Est GFR ( Amer) 90, Glucose 85, Calcium 8.5, Total Bilirubin 0.4, AST 70 H, ALT 24, Alkaline Phosphatase 81, Total Protein 6.4, Albumin 3.3 L, Globulin 3.1, Albumin/Globulin Ratio 1.1 05/22/25 06:52: POC Glucose 105 Medical History: Medical History (Updated 05/22/25 @ 06:10 by Estephania Márquez APRN) Ulcer of right lower leg Diabetic ulcer of right heel HLD (hyperlipidemia) Functional quadriplegia Chronic pain Pressure ulcer, stage II, skin breakdown Pressure ulcers of skin of multiple topographic sites Constipation Constipation by delayed colonic transit Acute hyponatremia Catheter-associated urinary tract infection UTI (urinary tract infection) due to urinary indwelling catheter Palliative care status Tachycardia Acute exacerbation of chronic obstructive pulmonary disease Acute urinary retention At risk for osteoporosis Diabetes mellitus type 2 in obese At risk for polypharmacy Pneumonia Healthcare-associated pneumonia Chronic respiratory failure with hypoxia Chronic indwelling Rodriguez catheter Peritracheal mass Acute urinary retention Cauda equina syndrome Paralysis, progressive Encounter for immunization Atypical angina Chest pain Abnormal EKG Edema Leg pain, bilateral SOB (shortness of breath) Chronic systolic heart failure CKD (chronic kidney disease) stage 2, GFR 60-89 ml/min Diabetes mellitus COPD (chronic obstructive pulmonary disease) HTN (hypertension) Assessment and Plan Assessment and plan all Dx Assessment and Plan for all problems:: Pharmacokinetic dosing service Objective: Patient: Floor: Age: 70 yo Serum creatinine: 1.00 mg/dL Height: 70.9 Inches Weight (kg): 86 Assessment: IBW (kg): 75.07 Dosing wt(kg): 86 Estimated Creatinine clearance (ml/min): 75.1 CRCL method: Cockcroft and Gault using ibw(default). Drug selected: Vancomycin Loading dose (mg): Vd (liters): 68.8 (factor used: 0.8 L/kg) William (hr-1): 0.067 Half life (hrs): 10.35 CLvanco=?? 4.610 L/hr Recommended dose: 1750 mg Interval: 18 hrs Infusion time (hrs): 2.0 Predicted peak (mcg/mL): 34.0 Predicted trough (mcg/mL): 11.64 Total body weight is being used for vancomycin dosing. Recommendations: Give Vancomycin 1750 mg q 18 hrs with an expected Cpeak of 34.0 mcg/ml and an expected Ctrough of 11.64 mcg/ml AUC 0-24 /CHRISTIANO Data: CHRISTIANO 0.5 mcg/mL:?? AUC/CHRISTIANO:? 1012.3 CHRISTIANO 1.0 mcg/mL:?? AUC/CHRISTIANO:? 506.1 --------- CHRISTIANO 1.5 mcg/mL:?? AUC/CHRISTIANO:? 337.4 CHRISTIANO 2.0 mcg/mL:?? AUC/CHRISTIANO:? 253.1 Thank you for the consult, will continue to follow. -GLADIS OLMSTEAD, COND
--- NOTE | 2025-05-22 08:30 | HMH.PTEV ---
Physical Therapy Evaluation Rehab PT IP Evaluation Start: 05/21/25 23:20 Freq: ONCE Status: Active Protocol: Document 05/22/25 08:24 ERNIE (Rec: 05/22/25 08:28 ERNIE [email or web address]) Subjective/History History History Per H&P: Adeel Nichole is a 70-year-old male with past medical history significant for type 2 diabetes mellitus, COPD, CKD, indwelling Rodriguez catheter , quadriplegia, anemia and chronic anticoagulation with Xarelto. Patient presents to [facility] due to generalized weakness. History provided his daughter/POA. Daughter reports abnormal laboratory finding of low hemoglobin along with patient feeling unwell prompted them to follow-up to the emergency department. Repeat laboratory findings while in the emergency did pertinent confirmed outpatient finding of low hemoglobin. Daughter states patient does have a history of anemia and occasionally will find to have a low hemoglobin at times. Baseline hemoglobin approximately around 7-8. Patient's hemoglobin was noted to be 4.3 which was consistent with finding in the emergency department. Patient and daughter denies any known active bleeding. Denies any new/worsening weakness from his baseline. He also has a chronic indwelling Rodriguez catheter. Patient and daughter denies any new complications and/or urinary symptoms. ED workup also found patient to be hypothermic, tachycardic with notable large leukocyte esterase and 4+ bacteria within urine. Patient typed and screened within the ED with 3 units packed red blood cells to be transfused. Patient placed on bear hugger. Admitted to hospital for further evaluation/ treatment. Patient fever, chills, nausea, vomiting, abdominal pain, chest pain or shortness of breath . Initial ED workup included laboratory studies. Significant laboratory findings included hemoglobin 4.4 , hematocrit 18, sodium 131, iron 25, AST 70, BNP 389, free T4 2.35, UA with 3+ leukocyte esterase, 1+ urine blood, 4+ urine bacteria. Imaging study included foot x-ray, chest x-ray, abdomen pelvis CTA, chest CTA, head CT, I personally reviewed all imaging and were found without acute findings. Patient assessed at bedside, POA present. Currently without acute distress resting in bed comfortably. Hemodynamically stable. Subjective Subjective Pt reports he has been bed bound and paralyzed for 2 years. Pt reports he has no function or feeling from the neck down. Pt reports he lives with his . Pt owns a hospital bed and lubna lift. Pt reports he receives 24/ assist from his and daughter. Pt reports that family responds to his needs well. [facility] How much help from another person do you currently need... Turning from your Total back to your side while in a flat bed without using bedrails? Moving from lying on Total back to sitting on the side of a flat bed without using bedrails? Moving to and from a Total bed to a chair ( including a wheelchair)? Standing up from a Total chair using your arms? (e.g., wheelchair, bedside chair) Walking in hospital Total room? Climbing 3-5 steps Total with a railing? Mobility Score 6 Mobility Level [facility] Mobility 2 Bed activities/dependent transfer Mobility Calculator Rehab PT IP Eval Objective Appearance Patient Behavior Appropriate,Cooperative Patient Orientation Person,Situation Difficulty following none instructions Speech Pattern Clear Ambulation Patient Able to No Ambulate Balance Ability to Arise Unable Transfers Bed Transfer Ability Total/Dependent (100%) Rehab PT IP prob,goals,plan Problems Date of Evaluation: 05/22/25 Rehab Potential Rehab Potential Innapropriate for Skilled Therapy Discharge Plan PT Discharge Plan Pt appears to be at his reported baseline in functional mobility and would not benefit from skilled PT at this time. Eval Complexity Eval Charge Codes 84575 - Moderate Complexity PHYSICIAN CERTIFICATION: I certify the specified therapy services for Adeel Deweynata YO are required, authorized, and reviewed every 30 days.
[2025-05-22] MEDS: ALLOPURINOL 300MG TABLET 300 MG PO (08:32)
[2025-05-22] MEDS: ASPIRIN 81MG CHEWABLE TABLET 81 MG PO (08:33)
[2025-05-22] MEDS: LORATADINE 10MG TABLET 10 MG PO (08:34)
[2025-05-22] MEDS: LEVOTHYROXINE 75MCG (0.075MG) TAB 75 MCG PO (08:34)
[2025-05-22] MEDS: METOPROLOL SUCCINATE XL 25MG TABLET 25 MG PO ×2 (08:34→20:33)
[2025-05-22] MEDS: CHOLECALCIFEROL 1,000 UNITS (25MCG) TABLET 50 MCG PO (08:34)
[2025-05-22] MEDS: FUROSEMIDE 40 MG TABLET PO ×2 (08:34→17:21)
[2025-05-22] MEDS: SPIRONOLACTONE 25MG TABLET 25 MG PO (08:35)
[2025-05-22] MEDS: INSULIN GLARGINE 100 UNITS/ML 3ML FLEXPEN 110 UNIT SUBCUT (08:54)
[2025-05-22] MEDS: IRON SUCROSE COMPLEX 200 MG in 0.9 % SODIUM CHLORIDE 100 ML 220 MG IV (09:01)
[2025-05-22] MEDS: OXYCODONE 5MG IMMEDIATE RELEASE TABLET 15 MG PO ×2 (09:01→20:33)
--- NOTE | 2025-05-22 09:39 | HMH.PHAAMS2 ---
- Antimicrobial Stewardship Review culture & sensitivity review Stewardship interventions: culture & sensitivity review, reviewed - no change Comments: URINE AND BLOOD CX PENDING, RIGHT FOOT WOUND CX PENDING, ON VANCOMYCIN/ZOSYN EMPIRICALLY FOR SEPSIS/CATHETER ASSOCIATED UTI, WBC WNL AT 6.8 K/mm3, AFEBRILE OVER 24 HR.
--- NOTE | 2025-05-22 09:49 | EXP.CARD.CON ---
History of Present Illness History of Present Illness Consult date: 05/22/25 Requesting physician: Paulo Paulino Chief complaint: Generalized weakness and Abnormal labs History of present illness: Hospitalist note: Adeel Nichole is a 70-year-old male with past medical history significant for type 2 diabetes mellitus, COPD, CKD, indwelling Rodriguez catheter, quadriplegia, anemia and chronic anticoagulation with Xarelto. Patient presents to [facility] due to generalized weakness. History provided his daughter/POA. Daughter reports abnormal laboratory finding of low hemoglobin along with patient feeling unwell prompted them to follow-up to the emergency department. Repeat laboratory findings while in the emergency did pertinent confirmed outpatient finding of low hemoglobin. Daughter states patient does have a history of anemia and occasionally will find to have a low hemoglobin at times. Baseline hemoglobin approximately around 7-8. Patient's hemoglobin was noted to be 4.3 which was consistent with finding in the emergency department. Patient and daughter denies any known active bleeding. Denies any new/worsening weakness from his baseline. He also has a chronic indwelling Rodriguez catheter. Patient and daughter denies any new complications and/or urinary symptoms. ED workup also found patient to be hypothermic, tachycardic with notable large leukocyte esterase and 4+ bacteria within urine. Patient typed and screened within the ED with 3 units packed red blood cells to be transfused. Patient placed on bear hugger. Admitted to hospital for further evaluation/treatment. Patient fever, chills, nausea, vomiting, abdominal pain, chest pain or shortness of breath . Initial ED workup included laboratory studies. Significant laboratory findings included hemoglobin 4.4, hematocrit 18, sodium 131, iron 25, AST 70, BNP 389, free T4 2.35, UA with 3+ leukocyte esterase, 1+ urine blood, 4+ urine bacteria. Imaging study included foot x-ray, chest x-ray, abdomen pelvis CTA, chest CTA, head CT, I personally reviewed all imaging and were found without acute findings. Patient assessed at bedside, POA present. Currently without acute distress resting in bed comfortably. Hemodynamically stable. Cardiology note: Mr. Nichole is a 70-year-old male with a past medical history of coronary artery disease status post medical management heart cath in 2021 with mild to moderate coronary disease noted, hypertension, hyperlipidemia and history of PE on Xarelto who presented to emergency department with complaints of generalized weakness and abnormal labs. Initial hemoglobin found to be 4.4. Serial troponins negative. EKG showed normal sinus rhythm at a rate of [address] or T wave changes noted. Cardiology asked to evaluate patient for chronic anticoagulation in the setting of acute on chronic anemia. Today hemoglobin is up to 7 status post transfusions. [facility] Disclaimer: The information contained in this section may have been updated after the patient was seen, as this information can be updated by other users. Medical History Ulcer of right lower leg Diabetic ulcer of right heel HLD (hyperlipidemia) Functional quadriplegia Chronic pain Pressure ulcer, stage II, skin breakdown Pressure ulcers of skin of multiple topographic sites Constipation Constipation by delayed colonic transit Acute hyponatremia Catheter-associated urinary tract infection UTI (urinary tract infection) due to urinary indwelling catheter Palliative care status Tachycardia Acute exacerbation of chronic obstructive pulmonary disease Acute urinary retention At risk for osteoporosis Diabetes mellitus type 2 in obese At risk for polypharmacy Pneumonia Healthcare-associated pneumonia Chronic respiratory failure with hypoxia Chronic indwelling Rodriguez catheter Peritracheal mass Acute urinary retention Cauda equina syndrome Paralysis, progressive Encounter for immunization Atypical angina Chest pain Abnormal EKG Edema Leg pain, bilateral SOB (shortness of breath) Chronic systolic heart failure CKD (chronic kidney disease) stage 2, GFR 60-89 ml/min Diabetes mellitus COPD (chronic obstructive pulmonary disease) HTN (hypertension) Surgical History H/O repair of rotator cuff Family History Other Diabetes Hypertension Stroke Social History Smoking Status: Never smoker alcohol intake: never substance use type: denies use current occupational status: unemployed Travel in the last 8 weeks?: None household members: spouse housing: house caffeine: Yes Have you lived/traveled outside [place] in past 30 days?: No Contact w/someone who lives/traveled outside US past 30 days?: No Exposure to someone with infectious disease in past 14 days?: No Do you have a fever (greater than 100.4 F or 38 C)?: No Have you tested positive for COVID-19?: No Exposed to someone with COVID-19 in past 14 days?: No Do you have a sore throat?: No Do you have a cough?: No Do you have any weakness?: No Do you have any diarrhea?: No Are you experiencing any unusual bleeding?: No Do you have any muscle aches/pain?: No Do you have any abdominal pain?: No Are you experiencing loss of taste or smell?: No Review of Systems Review of Systems Review of systems:: pertinent systems reviewed and negative unless documented below *Neurologic Neurologic: Reports as per HPI Exam Data for Last 24 hours Vital signs and Labs for Last 24 Hours: Temp Pulse Resp BP Pulse Ox O2 Del Method O2 Flow Rate 96.7 F L 84 12 113/61 100 Nasal Cannula 2 05/22/25 06:45 05/22/25 06:45 05/22/25 06:45 05/22/25 06:45 05/22/25 06:45 05/22/25 05:00 05/22/25 05:00 Laboratory Results - last 24 hr 05/21/25 18:20: WBC 6.3, RBC 2.67 L, Hgb 4.4 L*, Hct 18.0 L*, MCV 67.4 L, MCH 16.5 L, MCHC 24.4 L, RDW 24.8 H, Plt Count 380, MPV 9.6, Neut % (Auto) 59.1, Lymph % (Auto) 28.5, [place] % (Auto) 10.6 H, Eos % (Auto) 1.0, Baso % (Auto) 0.2, Neut # (Auto) 3.7, Lymph # (Auto) 1.8, [place] # (Auto) 0.7, Eos # (Auto) 0.1, Baso # (Auto) 0.0, Retic Count (auto) 3.8 H, PT 14.6 H, INR 1.34 H, APTT 46.9 H, Sodium 131 L, Potassium 5.2 H, Chloride 106, Carbon Dioxide 19 L, Anion Gap 11.2, BUN 18, Creatinine 1.10, Estimated GFR 67, Est GFR ( Amer) 81, Glucose 76, Lactate 1.2, Calcium 8.9, Phosphorus 4.9 H, Magnesium 1.8, Iron 25 L, TIBC 347, Iron Saturation 7.70467 L, Ferritin 18.9, Total Bilirubin 0.4, AST 70 H, ALT 24, Alkaline Phosphatase 89, Troponin I < 0.01, NT-Pro-B Natriuret Pep 389 H, Total Protein 6.5, Albumin 3.3 L, Globulin 3.2, Albumin/Globulin Ratio 1.0 L, Lipase 69, Vitamin B12 991 H, Folate > 20.00, TSH 0.63, Free T4 2.35 H, Blood Type O Positive, Antibody Screen Negative, Crossmatch (AHG) See Detail 05/21/25 18:49: Urine Color Yellow, Urine Appearance Clear, Urine pH 6.5, Ur Specific [place] 1.010, Urine Protein Negative, Urine Glucose (UA) Negative, Urine Ketones Negative, Urine Blood 1+ A, Urine Nitrate Negative, Urine Bilirubin Negative, Urine Urobilinogen 0.2, Ur Leukocyte Esterase 3+ A, Urine RBC 50-100, Urine WBC Tntc, Ur Squamous Epith Cells 20-50, Urine Bacteria 4+ 05/21/25 21:22: Troponin I < 0.01 05/22/25 04:25: WBC 6.8, RBC 3.56 L D, Hgb 7.0 L, Hct 27.2 L, MCV 76.4 L, MCH 20.5 L, MCHC 26.8 L, RDW 27.0 H*, Plt Count 303, MPV 10.1, Neut % (Auto) 68.8, Lymph % (Auto) 17.4, [place] % (Auto) 12.2 H, Eos % (Auto) 0.6, Baso % (Auto) 0.3, Neut # (Auto) 4.7, Lymph # (Auto) 1.2, [place] # (Auto) 0.8, Eos # (Auto) 0.0, Baso # (Auto) 0.0, Sodium 134 L, Potassium 4.6, Chloride 105, Carbon Dioxide 18 L, Anion Gap 15.6 H, BUN 17, Creatinine 1.00, Estimated Creat Clear 86, Estimated GFR 74, Est GFR ( Amer) 90, Glucose 85, Calcium 8.5, Total Bilirubin 0.4, AST 70 H, ALT 24, Alkaline Phosphatase 81, Total Protein 6.4, Albumin 3.3 L, Globulin 3.1, Albumin/Globulin Ratio 1.1 05/22/25 06:52: POC Glucose 105 I & O for Last 24 hours: Intake & Output 05/19/25 05/20/25 05/21/25 05/22/25 23:59 23:59 23:59 23:59 Intake Total 1350 / 1572 1307.833 / 1307.833 Output Total 1800 / 1800 Balance 1350 / 1572 -492.167 / -492.167 Weight 182 lb 1.629 oz 189 lb 6.033 oz Meds Home Medications and Allergies Home Medications ?Medication ?Instructions ?Recorded ?Confirmed ?Type aspirin 81 mg chewable tablet 81 mg PO DAILY 03/29/23 05/21/25 History semaglutide 2 mg/dose (8 mg/3 mL) 2 mg SQ WEEKLY 06/14/23 05/21/25 History subcutaneous pen injector (Ozempic) insulin glargine 100 unit/mL (3 110 unit SQ DAILY 05/12/24 05/21/25 History mL) subcutaneous pen (Basaglar KwikPen U-100 Insulin) hydrocortisone 1 % topical spray 1 applic topical BID psoarsis #50 05/13/24 05/21/25 Rx (Anti-Itch (hydrocortisone)) mL nitroglycerin 0.4 mg sublingual 0.4 mg sublingual Q5-15M PRN chest 05/14/24 05/21/25 Rx tablet pain #30 tabs cetirizine 10 mg capsule (All Day 10 mg PO DAILY PRN Allergy Symptoms 05/16/24 05/21/25 History Allergy (cetirizine)) cholecalciferol (vitamin D3) 50 50 mcg PO DAILY 05/16/24 05/21/25 History mcg (2,000 unit) capsule insulin aspart U-100 100 unit/mL 1 sliding scale dose SQ .COMPLEX 05/16/24 05/21/25 Rx (3 mL) subcutaneous pen (Novolog Diabetes #15 mL FlexPen U-100 Insulin aspart) spironolactone 25 mg tablet 25 mg PO DAILY 90 days #90 tabs 06/12/24 05/21/25 Rx methenamine hippurate 1 gram tablet 1 g PO DAILY #90 tabs 12/17/24 05/21/25 Rx furosemide 40 mg tablet 40 mg PO BID 30 days #60 tabs 01/12/25 05/21/25 Rx ranolazine 500 mg tablet,extended 500 mg PO BID #180 tabs 02/12/25 05/21/25 Rx release,12 hr topiramate 100 mg tablet (Topamax) 100 mg PO BID #60 tabs 03/27/25 05/21/25 Rx diazepam 5 mg tablet 5 mg PO TID 90 days #270 tabs 04/21/25 05/21/25 Rx pregabalin 100 mg capsule 100 mg PO TID 90 days #270 caps 04/21/25 05/21/25 Rx aripiprazole 5 mg tablet 5 mg PO DAILY #90 tabs 05/18/25 05/21/25 Rx metoprolol succinate 25 mg 25 mg PO BID #180 tabs 05/18/25 05/21/25 Rx tablet,extended release 24 hr rivaroxaban 15 mg tablet 15 mg PO QPMWITHMEAL Blood 05/18/25 05/21/25 Rx thinner/AFIB 90 days #90 tabs Heel Protectors (dme) #1 ea 05/19/25 05/21/25 Rx collagenase clostridium histo. 250 1 applic topical DAILY PRN wound 05/19/25 05/21/25 Rx unit/gram topical ointment (Santyl) care 30 days #90 grams oxycodone 15 mg tablet 15 mg PO QID PRN pain #120 tabs 05/19/25 05/21/25 Rx allopurinol 300 mg tablet 300 mg PO DAILY #90 tabs 05/20/25 05/21/25 Rx montelukast 10 mg tablet 10 mg PO HS #90 tabs 05/20/25 05/21/25 Rx levothyroxine 150 mcg tablet 150 mcg PO DAILY 05/22/25 05/22/25 History nystatin 100,000 unit/gram topical 1 applic topical TID 05/22/25 05/22/25 History powder pantoprazole 40 mg tablet,delayed 40 mg PO DAILY 05/22/25 05/22/25 History release potassium chloride 20 mEq 20 meq PO DAILY 05/22/25 05/22/25 History tablet,extended release(part/cryst) tizanidine 4 mg tablet 4 mg PO BID PRN muscle spasm 05/22/25 05/22/25 History New Prescriptions to Start Prescriptions: Allergies Allergy/AdvReac Type Severity Reaction Status Date / Time gabapentin (From Neurontin) Allergy Intermediate Rash Verified 05/19/25 13:57 Assessment and Plan *Assessment and plan (1) Acute on chronic anemia: Status: Acute Category: Medical Code(s): D64.9 - Anemia, unspecified Plan Acute on chronic anemia Chronic anticoagulation History of pulmonary embolism History of coronary artery disease Hemoglobin 4.4 on admission up to 7 post transfusion. No active bleeding noted. Patient on both aspirin and Xarelto for coronary disease and pulmonary embolism Patient was noted to have a pulmonary embolism in June-July 2018 during a hospital admission for sepsis and pneumonia. Likely provoked due to hospitalization but never followed up with pulm or hematology for further evaluation or testing. History of coronary artery disease-medical management heart cath May 10/2022 Reasonable to stop aspirin and continue patient just on Xarelto for PE/DVT prevention OR transition patient to Eliquis given lower bleeding risk Recommend patient follows up with pulmonology and/or hematology for hx of PE and further OAC management
--- NOTE | 2025-05-22 10:23 | HMH.PTWOUND ---
Rehab Wound Evaluation Rehab IP Wound Evaluation Start: 05/22/25 01:38 Freq: ONCE Status: Active Protocol: Document 05/22/25 10:19 RAMÍREZ (Rec: 05/22/25 10:23 PHOROBBIE [id number]) Rehab PT Wound Assessment Subjective Subjective 70-year-old male with past medical history significant for type 2 diabetes mellitus, COPD, CKD, indwelling Rodriguez catheter, quadriplegia, anemia and chronic anticoagulation with Xarelto. Patient presents to [facility] due to generalized weakness. History provided his daughter/POA. Daughter reports abnormal laboratory finding of low hemoglobin along with patient feeling unwell prompted them to follow-up to the emergency department. Repeat laboratory findings while in the emergency did pertinent confirmed outpatient finding of low hemoglobin. Daughter states patient does have a history of anemia and occasionally will find to have a low hemoglobin at times. Baseline hemoglobin approximately around 7-8. Patient's hemoglobin was noted to be 4.3 which was consistent with finding in the emergency department. Patient and daughter denies any known active bleeding. Denies any new/worsening weakness from his baseline. He also has a chronic indwelling Rodriguez catheter. Patient and daughter denies any new complications and/or urinary symptoms. ED workup also found patient to be hypothermic, tachycardic with notable large leukocyte esterase and 4+ bacteria within urine. Patient typed and screened within the ED with 3 units packed red blood cells to be transfused. Patient placed on bear hugger. Admitted to hospital for further evaluation/ treatment. Patient fever, chills, nausea, vomiting, abdominal pain, chest pain or shortness of breath . Pt has multiple wounds on L hip, R heel, and sacrum upon admission. Wound Sacrum Wound Type Pressure Ulcer Is This a Chronic Yes Wound Wound Staging Stage II Query Text:Stage I - Unbroken, red skin, no blanching. Stage II - Skin broken, superficial skin loss involving epidermis alone or also dermis. Partial loss of skin layers. Stage III - Pressure area involves epidermis, dermis and subcutaneous tissue, full thickness skin loss. Stage IV - Pressure area involves epidermis, subcutaneous tissue, bone and other supportive tissue. Full thickness skin loss with extensive destruction of underlying tissue and structures. Wound Length (cm) 6.5 Wound Width (cm) 8.0 Wound Depth (cm) 0.1 Wound Bed Appearance Beefy Red,Surrency,Yellow Percentage of Slough 20 (%) Wound Margins Well Defined Description Primary Dressing Composite Comment optifoam gentle sacrum Dressing Change Tolerated Well Patient Tolerance Right Heel Wound Type Pressure Ulcer Is This a Chronic Yes Wound Wound Staging Unstageable Query Text:Stage I - Unbroken, red skin, no blanching. Stage II - Skin broken, superficial skin loss involving epidermis alone or also dermis. Partial loss of skin layers. Stage III - Pressure area involves epidermis, dermis and subcutaneous tissue, full thickness skin loss. Stage IV - Pressure area involves epidermis, subcutaneous tissue, bone and other supportive tissue. Full thickness skin loss with extensive destruction of underlying tissue and structures. Wound Length (cm) 4.0 Wound Width (cm) 4.0 Wound Depth (cm) 0.1 Wound Bed Appearance Eschar Percentage of Eschar 95 (Black) (%) Wound Margins Well Defined Description Surrounding Tissue Surrency Appearance Primary Dressing Gauze Pad Comment betadine soaked gauze Wound Secondary Gauze Roll/Wrap,Adhering Gauze Roll Dressing Type Comment kerlix and coban Wound Debridement None Amount of Tissue Removed Dressing Change Tolerated Well Patient Tolerance Plan/Recommendation Comment Nursing staff currently treating all wounds appropriately. No PT wound care debridement needed at this time. Recommend no debridement for R heel wound due to stable hard black eschar at this time. Eval Complexity Eval Charge Codes 64778 - High Complexity PHYSICIAN CERTIFICATION: I certify the specified therapy services for Adeel Nichole JR are required, authorized, and reviewed every 30 days.
[2025-05-22] MEDS: PIPERACILLIN/TAZO 4.5 GM in 0.9 % SODIUM CHLORIDE 100 ML IV ×2 (10:27→20:33)
[2025-05-22 11:08] LABS: Hematocrit 28.5 % (42.0-52.0)
[2025-05-22 11:18] LABS: Hemoglobin 8.3 g/dL (14.1-18.0)
--- NOTE | 2025-05-22 11:29 | CARE MANAGER ---
Spoke with daughter this morning via phone, who is JO. She stated that the patient currently lives with his spouse and has family and friends that help out. He currently has [facility] for wound care. She also stated that they have all the DME that is needed at this time. They are not interested in Hospice. No known needs, other than help with transportation to and from MD appts. CM will provide spouse with [employer] phone number, which will schedule appropriate transport for patient.
[2025-05-22 11:40] LABS: POC Glucose,Bedside 98 gm/dL (70-110)
--- NOTE | 2025-05-22 11:40 | P.DS_ITS ---
General Admission date:: 05/21/25 HPI HPI HPI: Adeel Deweyp is a 70-year-old male with past medical history significant for type 2 diabetes mellitus, COPD, CKD, indwelling Rodriguez catheter, quadriplegia, anemia and chronic anticoagulation with Xarelto. Patient presents to [facility] due to generalized weakness. History provided his daughter/POA. Daughter reports abnormal laboratory finding of low hemoglobin a long with patient feeling unwell prompted them to follow-up to the emergency department. Repeat laboratory findings while in the emergency did pertinent confirmed outpatient finding of low hemoglobin. Daughter states patient does have a history of anemia and occasionally will find to have a low hemoglobin at times. Baseline hemoglobin approximately around 7-8. Patient's hemoglobin was noted to be 4.3 which was consistent with finding in the emergency department. Patient and daughter denies any known active bleeding. Denies any new/worsening weakness from his baseline. He also has a chronic indwelling Rodriguez catheter. Patient and daughter denies any new complications and/or urinary symptoms. ED workup also found patient to be hypothermic, tachycardic with notable large leukocyte esterase and 4+ bacteria within urine. Patient typed and screened within the ED with 3 units packed red blood cells to be transfused. Patient placed on bear hugger. Admitted to hospital for further evaluation/treatment. Patient fever, chills, nausea, vomiting, abdominal pain, chest pain or shortness of breath . Initial ED workup included laboratory studies. Significant laboratory findings included hemoglobin 4.4, hematocrit 18, sodium 131, iron 25, AST 70, BNP 389, free T4 2.35, UA with 3+ leukocyte esterase, 1+ urine blood, 4+ urine bacteria. Imaging study included foot x-ray, chest x-ray, abdomen pelvis CTA, chest CTA, head CT, I personally reviewed all imaging and were found without acute findings. Patient assessed at bedside, POA present. Currently without acute distress resting in bed comfortably. Hemodynamically stable. Hospital Course Hospital Course Hospital Course: Patient is a 70-year-old male with past medical history significant for quadriplegia, COPD, CKD, DM2 and anemia. Patient presented due to feeling unwell and abnormal Hgb lab finding. ED workup resulted hemoglobin 4.4, no active source of bleeding. Prior remote history of low hemoglobin due to anemia. Patient was initially typed and screened with 3 units of packed red blood cells to be transfused. ED workup also found patient to be hypothermic, tachycardic with notable large leukocyte esterase and 4+ bacteria within urine. History of chronic Rodrigeuz catheter. Due to presentation patient treated as sepsis. Broad-spectrum IV antibiotics initiated in the emergency department with vancomycin and Zosyn. Admitted to the ICU for further evaluation and treatment. 1. Acute on chronic anemia, iron deficiency anemia: Initial hemoglobin 4.4, no active source of bleeding. Improved to 8.3 after 3 units PRBC transfusion. No active signs of bleeding. Extensively discussed with patient regarding possibility of occult bleed, including but not limited to malignancy. At this time, patient does not want to proceed with investigation including with an EGD, colonoscopy. Also not interested in hospice at this time. Vital signs stable. Currently takes Xarelto for A-fib, switched to Eliquis 5 mg twice daily after discussing with cardiology. Iron studies also indicate deficiency, discharged with ferrous sulfate 325 mcg twice daily with MiraLAX. 2. Catheter associated urinary tract infection: UA with large leukocyte esterase, 4+ bacteria-possibly chronic infection. Rodriguez catheter exchanged in the emergency department. Due to presentation hypothermia tachycardia patient placed on broad-spectrum IV antibiotics. Discharged with Bactrim DS for 7 more days. Will follow-up on urine culture. Rodriguez catheter exchanged. 3. HTN/HLD: Normotensive, monitor vitals closely due to underlying sepsis. At this time will resume antihypertensive and statin therapy. 7. DM2: A1c 6.5%. Continue home regimen. 8. COPD: Stable without complication. Resume home inhaler and nebs. 9. CKD: Creatinine 1.10, BUN 18, GFR 67. Renal function baseline. 10. Hypothyroidism: TSH low normal 0.63, free T4 high 2.35. Reduced home levothyroxine from 150 to 137 mcg. Follow-up TFTs in 6 weeks. Per imaging chest [id number] cm heterogeneously enhancing left lobe thyroid mass. POA re ports this is a known mass, inoperable, present for 10 years. Total time spent on discharge: 33 minutes on chart review, counseling, documentation, and direct care with patient. Exam Data for Last 24 hours Vital signs and Labs for Last 24 Hours: Temp Pulse Resp BP Pulse Ox O2 Del Method O2 Flow Rate 98.8 F 80 12 113/61 100 Nasal Cannula 2 05/22/25 10:00 05/22/25 08:00 05/22/25 06:45 05/22/25 06:45 05/22/25 08:30 05/22/25 09:00 05/22/25 09:00 Laboratory Results - last 24 hr 05/21/25 18:20: WBC 6.3, RBC 2.67 L, Hgb 4.4 L*, Hct 18.0 L*, MCV 67.4 L, MCH 16.5 L, MCHC 24.4 L, RDW 24.8 H, Plt Count 380, MPV 9.6, Neut % (Auto) 59.1, Lymph % (Auto) 28.5, [place] % (Auto) 10.6 H, Eos % (Auto) 1.0, Baso % (Auto) 0.2, Neut # (Auto) 3.7, Lymph # (Auto) 1.8, [place] # (Auto) 0.7, Eos # (Auto) 0.1, Baso # (Auto) 0.0, Retic Count (auto) 3.8 H, PT 14.6 H, INR 1.34 H, APTT 46.9 H, Sodium 131 L, Potassium 5.2 H, Chloride 106, Carbon Dioxide 19 L, Anion Gap 11.2, BUN 18, Creatinine 1.10, Estimated GFR 67, Est GFR ( Amer) 81, Glucose 76, Lactate 1.2, Calcium 8.9, Phosphorus 4.9 H, Magnesium 1.8, Iron 25 L , TIBC 347, Iron Saturation 7.50595 L, Ferritin 18.9, Total Bilirubin 0.4, AST 70 H, ALT 24, Alkaline Phosphatase 89, Troponin I < 0.01, NT-Pro-B Natriuret Pep 389 H, Total Protein 6.5, Albumin 3.3 L, Globulin 3.2, Albumin/Globulin Ratio 1.0 L, Lipase 69, Vitamin B12 991 H, Folate > 20.00, TSH 0.63, Free T4 2.35 H, Blood Type O Positive, Antibody Screen Negative, Crossmatch (AHG) See Detail 05/21/25 18:49: Urine Color Yellow, Urine Appearance Clear, Urine pH 6.5, Ur Specific [place] 1.010, Urine Protein Negative, Urine Glucose (UA) Negative, Urine Ketones Negative, Urine Blood 1+ A, Urine Nitrate Negative, Urine Bilirubin Negative, Urine Urobilinogen 0.2, Ur Leukocyte Esterase 3+ A, Urine RBC 50-100, Urine WBC Tntc, Ur Squamous Epith Cells 20-50, Urine Bacteria 4+ 05/21/25 21:22: Troponin I < 0.01 05/22/25 04:25: WBC 6.8, RBC 3.56 L D, Hgb 7.0 L, Hct 27.2 L, MCV 76.4 L, MCH 20.5 L, MCHC 26.8 L, RDW 27.0 H*, Plt Count 303, MPV 10.1, Neut % (Auto) 68.8, Lymph % (Auto) 17.4, [place] % (Auto) 12.2 H, Eos % (Auto) 0.6, Baso % (Auto) 0.3, Neut # (Auto) 4.7, Lymph # (Auto) 1.2, [place] # (Auto) 0.8, Eos # (Auto) 0.0, Baso # (Auto) 0.0, Sodium 134 L, Potassium 4.6, Chloride 105, Carbon Dioxide 18 L, Anion Gap 15.6 H, BUN 17, Creatinine 1.00, Estimated Creat Clear 86, Estimated GFR 74, Est GFR ( Amer) 90, Glucose 85, Calcium 8.5, Total Bilirubin 0.4, AST 70 H, ALT 24, Alkaline Phosphatase 81, Total Protein 6.4, Albumin 3.3 L, Globulin 3.1, Albumin/Globulin Ratio 1.1 05/22/25 06:52: POC Glucose 105 05/22/25 10:58: Hgb 8.3 L D, Hct 28.5 L Temp Pulse Resp BP Pulse Ox O2 Del Method O2 Flow Rate 96.7 F L 84 12 113/61 100 Nasal Cannula 2 05/22/25 06:45 05/22/25 06:45 05/22/25 06:45 05/22/25 06:45 05/22/25 06:45 05/22/25 05:00 05/22/25 05:00 Laboratory Results - last 24 hr 05/21/25 18:20: WBC 6.3, RBC 2.67 L, Hgb 4.4 L*, Hct 18.0 L*, MCV 67.4 L, MCH 16.5 L, MCHC 24.4 L, RDW 24.8 H, Plt Count 380, MPV 9.6, Neut % (Auto) 59.1, Lymph % (Auto) 28.5, [place] % (Auto) 10.6 H, Eos % (Auto) 1.0, Baso % (Auto) 0.2, Neut # (Auto) 3.7, Lymph # (Auto) 1.8, [place] # (Auto) 0.7, Eos # (Auto) 0.1, Baso # (Auto) 0.0, Retic Count (auto) 3.8 H, PT 14.6 H, INR 1.34 H, APTT 46.9 H, Sodium 131 L, Potassium 5.2 H, Chloride 106, Carbon Dioxide 19 L, Anion Gap 11.2, BUN 18, Creatinine 1.10, Estimated GFR 67, Est GFR ( Amer) 81, Glucose 76, Lactate 1.2, Calcium 8.9, Phosphorus 4.9 H, Magnesium 1.8, Iron 25 L , TIBC 347, Iron Saturation 7.59394 L, Ferritin 18.9, Total Bilirubin 0.4, AST 70 H, ALT 24, Alkaline Phosphatase 89, Troponin I < 0.01, NT-Pro-B Natriuret Pep 389 H, Total Protein 6.5, Albumin 3.3 L, Globulin 3.2, Albumin/Globulin Ratio 1.0 L, Lipase 69, Vitamin B12 991 H, Folate > 20.00, TSH 0.63, Free T4 2.35 H, Blood Type O Positive, Antibody Screen Negative, Crossmatch (AHG) See Detail 05/21/25 18:49: Urine Color Yellow, Urine Appearance Clear, Urine pH 6.5, Ur Specific [place] 1.010, Urine Protein Negative, Urine Glucose (UA) Negative, Urine Ketones Negative, Urine Blood 1+ A, Urine Nitrate Negative, Urine Bilirubin Negative, Urine Urobilinogen 0.2, Ur Leukocyte Esterase 3+ A, Urine RBC 50-100, Urine WBC Tntc, Ur Squamous Epith Cells 20-50, Urine Bacteria 4+ 05/21/25 21:22: Troponin I < 0.01 05/22/25 04:25: WBC 6.8, RBC 3.56 L D, Hgb 7.0 L, Hct 27.2 L, MCV 76.4 L, MCH 20.5 L, MCHC 26.8 L, RDW 27.0 H*, Plt Count 303, MPV 10.1, Neut % (Auto) 68.8, Lymph % (Auto) 17.4, [place] % (Auto) 12.2 H, Eos % (Auto) 0.6, Baso % (Auto) 0.3, Neut # (Auto) 4.7, Lymph # (Auto) 1.2, [place] # (Auto) 0.8, Eos # (Auto) 0.0, Baso # (Auto) 0.0, Sodium 134 L, Potassium 4.6, Chloride 105, Carbon Dioxide 18 L, Anion Gap 15.6 H, BUN 17, Creatinine 1.00, Estimated Creat Clear 86, Estimated GFR 74, Est GFR ( Amer) 90, Glucose 85, Calcium 8.5, Total Bilirubin 0.4, AST 70 H, ALT 24, Alkaline Phosphatase 81, Total Protein 6.4, Albumin 3.3 L, Globulin 3.1, Albumin/Globulin Ratio 1.1 05/22/25 06:52: POC Glucose 105 I & O for Last 24 hours: Intake & Output 05/19/25 05/20/25 05/21/25 05/22/25 23:59 23:59 23:59 23:59 Intake Total 1350 / 1572 2077.833 / 2077.833 Output Total 2425 / 2425 Balance 1350 / 1572 -347.167 / -347.167 Weight 82.6 kg 85.9 kg Intake & Output 05/19/25 05/20/25 05/21/25 05/22/25 23:59 23:59 23:59 23:59 Intake Total 1350 / 1572 1307.833 / 1307.833 Output Total 1800 / 1800 Balance 1350 / 1572 -492.167 / -492.167 Weight 182 lb 1.629 oz 189 lb 6.033 oz Results Data Completed and Pending Labs on day of discharge: Labs from last 24 hours 05/22/25 05/22/25 05/22/25 10:58 06:52 04:25 WBC 6.8 RBC 3.56 L D Hgb 8.3 L D 7.0 L Hct 28.5 L 27.2 L MCV 76.4 L MCH 20.5 L MCHC 26.8 L RDW 27.0 H* Plt Count 303 MPV 10.1 Neut % (Auto) 68.8 Lymph % (Auto) 17.4 [place] % (Auto) 12.2 H Eos % (Auto) 0.6 Baso % (Auto) 0.3 Neut # (Auto) 4.7 Lymph # (Auto) 1.2 [place] # (Auto) 0.8 Eos # (Auto) 0.0 Baso # (Auto) 0.0 Retic Count (auto) PT INR APTT Sodium 134 L Potassium 4.6 Chloride 105 Carbon Dioxide 18 L Anion Gap 15.6 H BUN 17 Creatinine 1.00 Estimated Creat Clear 86 Estimated GFR 74 Est GFR ( Amer) 90 Glucose 85 POC Glucose 105 Lactate Calcium 8.5 Phosphorus Magnesium Iron TIBC Iron Saturation Ferritin Total Bilirubin 0.4 AST 70 H ALT 24 Alkaline Phosphatase 81 Troponin I NT-Pro-B Natriuret Pep Total Protein 6.4 Albumin 3.3 L Globulin 3.1 Albumin/Globulin Ratio 1.1 Lipase Vitamin B12 Folate TSH Free T4 Urine Color Urine Appearance Urine pH Ur Specific [place] Urine Protein Urine Glucose (UA) Urine Ketones Urine Blood Urine Nitrate Urine Bilirubin Urine Urobilinogen Ur Leukocyte Esterase Urine RBC Urine WBC Ur Squamous Epith Cells Urine Bacteria Blood Type Antibody Screen Crossmatch (AHG) 05/21/25 05/21/25 05/21/25 21:22 18:49 18:20 WBC 6.3 RBC 2.67 L Hgb 4.4 L* Hct 18.0 L* MCV 67.4 L MCH 16.5 L MCHC 24.4 L RDW 24.8 H Plt Count 380 MPV 9.6 Neut % (Auto) 59.1 Lymph % (Auto) 28.5 [place] % (Auto) 10.6 H Eos % (Auto) 1.0 Baso % (Auto) 0.2 Neut # (Auto) 3.7 Lymph # (Auto) 1.8 [place] # (Auto) 0.7 Eos # (Auto) 0.1 Baso # (Auto) 0.0 Retic Count (auto) 3.8 H PT 14.6 H INR 1.34 H APTT 46.9 H Sodium 131 L Potassium 5.2 H Chloride 106 Carbon Dioxide 19 L Anion Gap 11.2 BUN 18 Creatinine 1.10 Estimated Creat Clear Estimated GFR 67 Est GFR ( Amer) 81 Glucose 76 POC Glucose Lactate 1.2 Calcium 8.9 Phosphorus 4.9 H Magnesium 1.8 Iron 25 L TIBC 347 Iron Saturation 7.36811 L Ferritin 18.9 Total Bilirubin 0.4 AST 70 H ALT 24 Alkaline Phosphatase 89 Troponin I < 0.01 < 0.01 NT-Pro-B Natriuret Pep 389 H Total Protein 6.5 Albumin 3.3 L Globulin 3.2 Albumin/Globulin Ratio 1.0 L Lipase 69 Vitamin B12 991 H Folate > 20.00 TSH 0.63 Free T4 2.35 H Urine Color Yellow Urine Appearance Clear Urine pH 6.5 Ur Specific [place] 1.010 Urine Protein Negative Urine Glucose (UA) Negative Urine Ketones Negative Urine Blood 1+ A Urine Nitrate Negative Urine Bilirubin Negative Urine Urobilinogen 0.2 Ur Leukocyte Esterase 3+ A Urine RBC 50-100 Urine WBC Tntc Ur Squamous Epith Cells 20-50 Urine Bacteria 4+ Blood Type O Positive Antibody Screen Negative Crossmatch (AHG) See Detail DS: Diagnosis Discharge Diagnosis (1) Acute on chronic anemia: Status: Acute Code(s): D64.9 - Anemia, unspecified Meds Home Medications and Allergies Home Medications ?Medication ?Instructions ?Recorded ?Confirmed ?Type semaglutide 2 mg/dose (8 mg/3 mL) 2 mg SQ WEEKLY 06/1405/21/25 History subcutaneous pen injector (Ozempic) insulin glargine 100 unit/mL (3 80 unit SQ DAILY 05/1205/22/25 History mL) subcutaneous pen (Basaglar KwikPen U-100 Insulin) hydrocortisone 1 % topical spray 1 applic topical BID psoarsis #50 05/13/24 05/21/25 Rx (Anti-Itch (hydrocortisone)) mL nitroglycerin 0.4 mg sublingual 0.4 mg sublingual Q5-1 5M PRN chest 05/14/24 05/21/25 Rx tablet pain #30 tabs cetirizine 10 mg capsule (All Day 10 mg PO DAILY PRN A llergy Symptoms 05/16/24 05/21/25 History Allergy (cetirizine)) cholecalciferol (vitamin D3) 50 50 mcg PO DAILY 05/21/25 History mcg (2,000 unit) capsule insulin aspart U-100 100 unit/mL 1 sliding scale dose SQ .COMPLEX 05/16/24 05/21/25 Rx (3 mL) subcutaneous pen (Novolog Diabetes #15 mL FlexPen U-100 Insulin aspart) spironolactone 25 mg tablet 25 mg PO DAILY 90 days #90 tabs 06/12/24 05/21/25 Rx Held on 05/22/25. Instructions: Resume on 05/29/25. methenamine hippurate 1 gram tablet 1 g PO DAILY #90 t abs 12/17/24 05/21/25 Rx furosemide 40 mg tablet 40 mg PO BID 30 days #60 tab s 01/12/25 05/21/25 Rx ranolazine 500 mg tablet,extended 500 mg PO BID #180 t abs 02/12/25 05/21/25 Rx release,12 hr topiramate 100 mg tablet (Topamax) 100 mg PO BID #60 t abs 03/27/25 05/21/25 Rx diazepam 5 mg tablet 5 mg PO TID 90 days #270 tab s 04/21/25 05/21/25 Rx pregabalin 100 mg capsule 100 mg PO TID 90 days #270 c aps 04/21/25 05/21/25 Rx aripiprazole 5 mg tablet 5 mg PO DAILY #90 tabs 05/1805/21/25 Rx metoprolol succinate 25 mg 25 mg PO BID #180 tabs 05/0405/21/25 Rx tablet,extended release 24 hr Heel Protectors (dme) #1 ea 05/19/25 05/21/25 Rx collagenase clostridium histo. 250 1 applic topical DA DEIRDRE PRN wound 05/19/25 05/21/25 Rx unit/gram topical ointment (Santyl) care 30 days #90 g marques oxycodone 15 mg tablet 15 mg PO QID PRN pain #120 t abs 05/19/25 05/21/25 Rx allopurinol 300 mg tablet 300 mg PO DAILY #90 tabs 05/21/25 Rx montelukast 10 mg tablet 10 mg PO HS #90 tabs 5 05/21/25 Rx apixaban 5 mg tablet (Eliquis) 5 mg PO BID 30 days #60 tabs 05/22/25 Rx ferrous sulfate 325 mg (65 mg 325 mg PO BID #60 tabs 1 07/23/24 Rx iron) tablet levothyroxine 137 mcg capsule 137 mcg PO DAILY #30 cap s 05/22/25 Rx nystatin 100,000 unit/gram topical 1 applic topical TI D 05/22/25 05/22/25 History powder pantoprazole 40 mg tablet,delayed 40 mg PO DAILY 05/2205/22/25 History release polyethylene glycol 3350 17 17 g PO DAILY #119 grams 1 07/23/24 Rx gram/dose oral powder (Miralax) potassium chloride 20 mEq 20 meq PO DAILY 05/22/25 History tablet,extended release(part/cryst) Held on 05/22/25. Instructions: Resume on 05/29/25. sulfamethoxazole 800 1 tab PO BID 7 days #14 tabs 05/22/25 Rx mg-trimethoprim 160 mg tablet (Bactrim DS) tizanidine 4 mg tablet 4 mg PO BID PRN muscle spasm 05/22/25 05/22/25 History New Prescriptions to Start Prescriptions: apixaban [Eliquis] Lora,Paulo ferrous sulfate Lora,Paulo levothyroxine Lora,Paulo polyethylene glycol 3350 [Miralax] Lora,Paulo sulfamethoxazole-trimethoprim [Bactrim DS] Paulo Paulino Allergies Allergy/AdvReac Type Severity Reaction Status Date / Time gabapentin (From Neurontin) Allergy Intermediate Rash Verified 05/19/25 13:57 Discharge Plan Disposition Patient Disposition: Home, Self-Care Condition: Fair Discharge Order Discharge Orders: Discharge Order (Routine); Ordered 05/22/25 Ordered By: Paulo Paulino Follow up Plan Follow up with: Alondra Staples APRN [Nurse Practitioner, Cardiology] - Enter time for follow up Referral Note: Patient's family requests to make their own follow up appointments for the patient. Clifton Parr MD [Primary Care Provider, Family Practice] - Enter time for follow up Referral Note: Patient's family requests to make their own follow up appointments for the patient. Prescriptions/Medication Reconciliation: New Eliquis 5 mg tablet 5 mg PO BID 30 Days Qty: 60 0RF sulfamethoxazole-trimethoprim [Bactrim DS] 800-160 mg tablet 1 tab PO BID 7 Days Qty: 14 0RF levothyroxine 137 mcg capsule 137 mcg PO DAILY Qty: 30 0RF ferrous sulfate 325 mg (65 mg iron) tablet 325 mg PO BID Qty: 60 0RF polyethylene glycol 3350 [Miralax] 17 gram/dose powder 17 g PO DAILY Qty: 119 0RF Rx Instructions: Iron supplementation can cause constipation. Use MiraLAX as needed for constipation. Continued Ozempic 2 mg/dose (8 mg/3 mL) pen injector 2 mg SQ WEEKLY Rx Instructions: on mondays Santyl 250 unit/gram ointment 1 applic topical DAILY PRN (Reason: wound care) 30 Days Qty: 90 1RF Rx Instructions: Wound size 8.5 cm x 6.5 cm x 0.2cm= 282 grams (give qty#1-90 gram tube) apply 16.72 cm per application x 30 days. (DME) Heel Protectors (dme) 1 set See Rx Instructions .ROUTE .MEDSUPPLY Qty: 1 0RF Rx Instructions: [facility] Please submit bilateral Podus Boots to offload heels. Apply to feet while in bed every night. insulin glargine [Basaglar KwikPen U-100 Insulin] 100 unit/mL (3 mL) insulin pen 80 unit SQ DAILY Anti-Itch (HC) 1 % aerosol,spray 1 applic topical BID Qty: 50 2RF nitroglycerin 0.4 mg tablet, sublingual 0.4 mg sublingual Q5-15M PRN (Reason: chest pain) Qty: 30 4RF Rx Instructions: do not exceed 3 doses per episode All Day Allergy (cetirizine) 10 mg capsule 10 mg PO DAILY PRN (Reason: Allergy Symptoms) cholecalciferol (vitamin D3) 50 mcg (2,000 unit) capsule 50 mcg PO DAILY insulin aspart U-100 [Novolog FlexPen U-100 Insulin] 100 unit/mL (3 mL) insulin pen 1 sliding scale dose SQ .COMPLEX Qty: 15 2RF Rx Instructions: 1 sliding scale dose subcutaneously 200 to 250, 10 units per every 50 up to 120 units; methenamine hippurate 1 gram tablet 1 g PO DAILY Qty: 90 3RF furosemide 40 mg tablet 40 mg PO BID 30 Days Qty: 60 5RF ranolazine 500 mg tablet extended release 12 hr 500 mg PO BID Qty: 180 1RF Rx Instructions: do not break, crush, or chew tablet(s) topiramate [Topamax] 100 mg tablet 100 mg PO BID Qty: 60 2RF diazepam 5 mg tablet 5 mg PO TID 90 Days Qty: 270 0RF pregabalin 100 mg capsule 100 mg PO TID 90 Days Qty: 270 2RF metoprolol succinate 25 mg tablet extended release 24 hr 25 mg PO BID Qty: 180 1RF aripiprazole 5 mg tablet 5 mg PO DAILY Qty: 90 3RF oxycodone 15 mg tablet 15 mg PO QID PRN (Reason: pain) Qty: 120 0RF allopurinol 300 mg tablet 300 mg PO DAILY Qty: 90 3RF montelukast 10 mg tablet 10 mg PO HS Qty: 90 3RF tizanidine 4 mg tablet 4 mg PO BID PRN (Reason: muscle spasm) pantoprazole 40 mg tablet,delayed release (DR/EC) 40 mg PO DAILY nystatin 100,000 unit/gram powder 1 applic topical TID Held spironolactone 25 mg tablet 25 mg PO DAILY 90 Days Qty: 90 3RF Hold Instructions: Resume on 05/29/25. potassium chloride 20 mEq tablet,ER particles/crystals 20 meq PO DAILY Hold Instructions: Resume on 05/29/25. Discontinued rivaroxaban 15 mg tablet 15 mg PO QPMWITHMEAL 90 Days Qty: 90 1RF aspirin 81 mg tablet,chewable 81 mg PO DAILY levothyroxine 150 mcg tablet 150 mcg PO DAILY Problem Reconciliation Problems Reviewed?: Yes Patient Discharge Instructions Additional Instructions: Aspirin discontinued due to concern of very small GI bleed. Xarelto was switched to Eliquis as Eliquis is a lower risk of bleeding compared to Xarelto. Your blood work indicated Your thyroid levels were too high, decreased levothyroxine from 150 mcg to 137 mcg. He will need repeat thyroid function tests within 6 weeks with your primary care provider. Patient Instructions: Urinary Tract Infection, Pressure Injuries, DI for Hypothermia, DI for Muscle Weakness, DI for Hypothyroidism, Catheter-Associated Urinary Tract Infection Print Language: Russian Providers Primary Care Provider: Clifton Parr Admit Provider: Paulo Paulino Attending Provider: Paulo Paulino
--- NOTE | 2025-05-22 12:12 | SW/DCPLANNER ---
Spoke with [facility] about transporting patient to and from his appointments. EMS worker stated that they could transport patient as long as the family gives them a 1 week notice of the appointment. The number to [facility] is [phone] and i gave the number to Madalyn along with the information. Yony ROSALES Qa Auditor
[2025-05-22 16:46] LABS: POC Glucose,Bedside 117 gm/dL (70-110)
--- NOTE | 2025-05-22 16:59 | PC.NURSE ---
Pt has remained awake throughout the shift. pt is a/o x 4 nad noted. pt is noted to have numerous wounds on hips and coccyx. lungs are clear but diminished, bowel sounds are active. pt has had 2 bm this shift. pt is currently awaiting transport home via ems
--- NOTE | 2025-05-22 17:44 | PC.WOUNDNOTE ---
right lower abdomen wound right upper hip wound right lower hip bottom of left buttock coccyx/sacrum left hip left heel back/bottom of right leg. above right heel right heel
[2025-05-22] MEDS: ATORVASTATIN 40MG TABLET 40 MG PO (20:32)
[2025-05-22] MEDS: PANTOPRAZOLE 40MG TABLET 40 MG PO (20:33)
[2025-05-22 20:54] LABS: POC Glucose,Bedside 158 gm/dL (70-110)
[2025-05-22] MEDS: humaLOG 100 UNITS/ML 10ML VIAL (SSI) SUBCUT (20:57)
[2025-05-22] MEDS: MONTELUKAST SODIUM 10MG TAB 10 MG PO (20:57)
[2025-05-22] MEDS: VANCOMYCIN/WATER FOR INJ (PEG) 1.75 GM/350 ML PIGGYBACK IV (21:11)
--- NOTE | 2025-05-25 08:27 | PC.NURSE ---
Urine culture results forwarded to hospitalist.
--- NOTE | 2025-05-25 11:07 | PC.NURSE ---
received urine sowmya result of ESBL in urine. Dr. Nieto was notified. pt was sent home on Bactrim with sensitivity to culture result.
--- NOTE | 2025-05-25 11:11 | SW/DCPLANNER ---
Spoke with patient's daughter on the phone. Patient's daughter stated that she is aware of her dads appointments and that his health is declining and that he is refusing. Patient's daughter stated that she was able to get his new medicine picked up. Patient's daughter stated that she has no concerns or questions at this time. Yony Barros
--- OUTSIDE RECORDS SUMMARY | 2025-05-26 19:00 | XMS_ITS | Clinical Summary ---
Author Organization Unknown Care Team Providers Care Assistant District Attorney Name Role Phone ZHANG PATEL, ALANA Unavailable Unavailable JODIE PERALES, DENTON Unavailable Unavailable EMMANUEL ATKINSON, MARSHALL Unavailable Unavailable Payers Payer Name Policy Type Policy Number Effective Date Expira tion Date MEDICARE.[facility] [id number] Problems Condition Name Condition Details Condition Category Status Onset Date Resolution Date Last Treatment Date Treating Clinician Comments PRESSURE ULCER OF RIGHT HEEL, STAGE 2 Active 9-26 00:00: 00 ENCOUNTER FOR FITTING AND ADJUSTMENT OF URINARY DEVICE Active 8 00:00: 00 CAUDA EQUINA SYNDROME Active - 00:00: 00 HYP HRT AND CHR KDNY DIS W HRT FAIL AND STG 1-4/UNSP CHR KDNY Active - 00:00: 00 FUNCTIONAL QUADRIPLEGIA Active - 00:00: 00 OTHER CHRONIC PAIN Active 4-04 00:00: 00 CHRONIC SYSTOLIC (CONGESTIVE) HEART FAILURE Active 1- 00:00: 00 TYPE 2 DIABETES MELLITUS W DIABETIC CHRONIC KIDNEY DISEASE Active - 00:00: 00 CHRONIC KIDNEY DISEASE, STAGE 2 (MILD) Active - 00:00: 00 CHRONIC OBSTRUCTIVE PULMONARY DISEASE, UNSPECIFIED Active 1- 00:00: 00 CHRONIC RESPIRATORY FAILURE WITH HYPOXIA Active 1- 00:00: 00 TREMOR, UNSPECIFIED Active 1- 00:00: 00 FULL INCONTINENCE OF FECES Active 1- 00:00: 00 OBESITY, UNSPECIFIED Active 1- 00:00: 00 HYPERLIPIDEM IA, UNSPECIFIED Active 1- 00:00: 00 CONSTIPATION , UNSPECIFIED Active 06-04 00:00: 00 DEPENDENCE ON SUPPLEMENTAL OXYGEN Active 06-04 00:00: 00 LONGTERM (CURRENT) USE OF INSULIN Active 06-04 00:00: 00 LONGTERM (CURRENT) USE OF ANTICOAGULAN TS Active 06-04 00:00: 00 LNG TRM (CRNT) USE INJECTABLE NON-INSULIN ANTIDIABETIC DRUGS Active 06-04 00:00: 00 DEPENDENCE ON WHEELCHAIR Active 06-04 00:00: 00 PERSONAL HISTORY OF NICOTINE DEPENDENCE Active 06-04 00:00: 00 Allergies, Adverse Reactions, Alerts Allergy Name Allergy Type Status Severity Reaction(s) Onset Date Inactive Date Treating Clinician Comments GABAPENTIN Propensity to adverse reactions Active 09-30 09:54: 59 Medications Ordered Medication Name Filled Medication Name Start Date Stop Date Current Medication? Ordering Clinician Indication Dosage Frequency Signature (SIG) Comments Components tizanidine 4 mg tablet 09-24 00:00: 00 Yes [id number] MUSCLE 1 tablet 2 TIMES DAILY 1 tablet 2 TIMES DAILY (route: oral) Med Classific ation: Locomotor System Novolog FlexPen U-100 Insulin aspart 100 unit/mL (3 mL) [facility] 09-19 00:00: 00 Yes [id number] Unavailable Per instruc tions BEFORE each meal based ON correction scale Max Daily Per instructio ns BEFORE each meal based ON correction scale Max Daily ([facility] Med Classific ation: Endocrine levothyroxi ne 150 mcg tablet 09-18 00:00: 00 Yes [id number] Unavailable Per instruc tions EVERY DAY FOR 6 DAYS of THE WEEK FOR 1 DAY of THE WEEK Per instructio ns EVERY DAY FOR 6 DAYS of THE WEEK FOR 1 DAY of THE WEEK (route: oral) Med Classific ation: Endocrine pregabalin 100 mg capsule 16 00:00: 00 Yes [id number] PAIN 1 capsule THREE TIMES DAILY 1 capsule THREE TIMES DAILY (route: oral) Med Classific ation: Central Nervous System Agents allopurinol 300 mg tablet -14 00:00: 00 Yes [id number] GOUT 1 tablet DAILY 1 tablet DAILY (route: oral) Med Classific ation: Gout and Hyperuric emia Therapy aripiprazol e 5 mg tablet 09-15 00:00: 00 Yes [id number] DEPRESSION 1 tablet EVERY DAY 1 tablet EVERY DAY (route: oral) Med Classific ation: Central Nervous System Agents methenamine hippurate 1 gram tablet 09-15 00:00: 00 Yes [id number] Unavailable Per instruc tions EVERY DAY Per instructio ns EVERY DAY (route: oral) Med Classific ation: Genitouri nary Therapy metoprolol succinate ER 25 mg tablet,exte nded release 24 hr 09-15 00:00: 00 Yes [id number] BLOOD PRESSURE Per instruc tions TWICE DAILY Per instructio ns TWICE DAILY (route: oral) Med Classific ation: Cardiovas cular Therapy Agents montelukast 10 mg tablet 09-15 00:00: 00 Yes [id number] ALLERGIES Per instruc tions AT BEDTIME Per instructio ns AT BEDTIME (route: oral) Med Classific ation: Respirato ry Therapy Agents pantoprazol e 40 mg tablet,jess yed release 09-15 00:00: 00 Yes [id number] REFLUX 1 tablet EVERY DAY 1 tablet EVERY DAY (route: oral) Med Classific ation: Gastroint estinal Therapy Agents potassium chloride ER 20 mEq tablet,exte nded release(par t/cryst) 09-15 00:00: 00 Yes [id number] SUPPLEMENT 1 tablet EVERY DAY 1 tablet EVERY DAY (route: oral) Med Classific ation: Electroly te Balance-N utritiona l Products ranolazine ER 500 mg tablet,exte nded release,12 hr 09-15 00:00: 00 Yes [id number] CHESTVPAIN 1 tablet EVERY TWELVE HOURS 1 tablet EVERY TWELVE HOURS (route: oral) Med Classific ation: Cardiovas cular Therapy Agents spironolact one 25 mg tablet 09-15 00:00: 00 Yes [id number] FLUID Per instruc tions EVERY DAY Per instructio ns EVERY DAY (route: oral) Med Classific ation: Cardiovas cular Therapy Agents tizanidine 4 mg tablet 09-15 00:00: 00 09-30 00:00 :00 No [id number] Per instruc tions EVERY DAY AT BEDTIME NEEDED Per instructio ns EVERY DAY AT BEDTIME NEEDED (route: oral) Med Classific ation: Locomotor System topiramate 25 mg tablet 14 00:00: 00 Yes [id number] HEADACHE 1 tablet TWICE DAILY 1 tablet TWICE DAILY (route: oral) Med Classific ation: Central Nervous System Agents topiramate 50 mg tablet 14 00:00: 00 Yes [id number] HEADACHE 1 tablet TWICE DAILY 1 tablet TWICE DAILY (route: oral) Med Classific ation: Central Nervous System Agents Xarelto 15 mg tablet 09-15 00:00: 00 Yes [id number] HEART Per instruc tions EVERY Per instructio ns EVERY (route: oral) Med Classific ation: Hematolog ical Agents amoxicillin 500 mg capsule 09-12 00:00: 00 09-30 23:59 :00 No [id number] ANTIBIOTIC 1 capsule THREE TIMES DAILY FOR 7 DAYS 1 capsule THREE TIMES DAILY FOR 7 DAYS (route: oral) Med Classific ation: Anti-Infe ctive Agents Ozempic 2 mg/dose (8 mg/3 mL) subcutaneou s pen injector 09-11 00:00: 00 Yes [id number] A2DM 2 mg WEEKLY 2 mg WEEKLY (route: subcutaneo us) Med Classific ation: Endocrine oxycodone 15 mg tablet 331 00:00: 00 Yes [id number] PAIN 1 tablet 4 TIMES DAILY 1 tablet 4 TIMES DAILY (route: oral) Med Classific ation: Analgesic , Anti-infl ammatory or Antipyret ic furosemide 40 mg tablet 27 00:00: 00 Yes [id number] FLUID 1 tablet TWICE DAILY 1 tablet TWICE DAILY (route: oral) Med Classific ation: Cardiovas cular Therapy Agents albuterol sulfate 0.63 mg/3 mL solution for nebulizatio n 09-30 00:00: 00 Yes [id number] BREATHING 3 mL EVERY 6 HOURS 3 mL EVERY 6 HOURS (route: inhalation ) Med Classific ation: Respirato ry Therapy Agents albuterol sulfate HFA 90 mcg/actuati on aerosol inhaler 09-30 00:00: 00 Yes [id number] LUNGS 2 puff EVERY 4 HOURS 2 puff EVERY 4 HOURS (route: inhalation ) Med Classific ation: Respirato ry Therapy Agents aspirin 81 mg chewable tablet 09-30 00:00: 00 Yes [id number] HEART 1 tablet DAILY 1 tablet DAILY (route: oral) Med Classific ation: Hematolog ical Agents cetirizine 10 mg tablet 09-30 00:00: 00 Yes [id number] ALLERGIES 1 tablet DAILY 1 tablet DAILY (route: oral) Med Classific ation: Respirato ry Therapy Agents diazepam 5 mg tablet 09-30 00:00: 00 Yes [id number] ANXIETY 1 tablet 3 TIMES DAILY 1 tablet 3 TIMES DAILY (route: oral) Med Classific ation: Central Nervous System Agents nitroglycer in 0.4 mg sublingual tablet 09-30 00:00: 00 Yes [id number] HEART Per instruc tions DIRECTED Per instructio ns DIRECTED (route: sublingual ) Med Classific ation: Cardiovas cular Therapy Agents oxygen gas for inhalation 09-30 00:00: 00 Yes [id number] SUPPLEMENTA L OXYGEN 2 Liter DAILY 2 Liter DAILY (route: inhalation ) Med Classific ation: Medical Supplies and Durable Medical Equipment (DME) Vitamin D3 50 mcg (2,000 unit) capsule 09-30 00:00: 00 Yes [id number] SUPPLEMENT 1 capsule DAILY 1 capsule DAILY (route: oral) Med Classific ation: Electroly te Balance-N utritiona l Products Vital Signs Vital Name Observation Time Observation Value Commen ts Temperature 2025-05-18 19:13:00.000 96.9 [degF] Temperature 2025-05-14 12:50:00.000 97.9 [degF] Temperature 2025-05-11 09:24:00.000 97.8 [degF] Temperature 2025-05-08 13:33:00.000 97.6 [degF] Temperature 2025-05-06 13:43:00.000 97.1 [degF] Temperature 2025-05-02 19:44:00.000 97.9 [degF] Temperature 2025-05-01 11:50:00.000 97.1 [degF] Temperature 2025-04-27 19:09:00.000 97.7 [degF] Temperature 2025-04-23 15:57:00.000 97.9 [degF] Temperature 2025-04-20 12:54:00.000 97.9 [degF] Temperature 2025-04-16 14:49:00.000 97.8 [degF] Temperature 2025-04-13 09:28:00.000 97.9 [degF] Temperature 2025-04-09 10:43:00.000 97.9 [degF] Temperature 2025-04-03 08:23:00.000 97.9 [degF] Temperature 2025-03-30 12:22:00.000 97.9 [degF] Pulse 2025-05-18 19:13:00.000 76 /min Pulse 2025-05-14 12:50:00.000 82 /min Pulse 2025-05-11 09:24:00.000 60 /min Pulse 2025-05-08 13:33:00.000 89 /min Pulse 2025-05-06 13:43:00.000 84 /min Pulse 2025-05-02 19:44:00.000 78 /min Pulse 2025-05-01 11:50:00.000 77 /min Pulse 2025-04-27 19:09:00.000 78 /min Pulse 2025-04-23 15:57:00.000 72 /min Pulse 2025-04-20 12:54:00.000 84 /min Pulse 2025-04-16 14:49:00.000 65 /min Pulse 2025-04-13 09:28:00.000 82 /min Pulse 2025-04-09 10:43:00.000 96 /min Pulse 2025-04-03 08:23:00.000 78 /min Pulse 2025-03-30 12:22:00.000 93 /min O2 Saturation (%) 2025-05-18 19:13:00.000 97 % O2 Saturation (%) 2025-05-14 12:50:00.000 93 % O2 Saturation (%) 2025-05-11 09:25:00.000 95 % O2 Saturation (%) 2025-05-08 13:33:00.000 94 % O2 Saturation (%) 2025-05-06 13:43:00.000 98 % O2 Saturation (%) 2025-05-02 19:44:00.000 97 % O2 Saturation (%) 2025-05-01 11:50:00.000 98 % O2 Saturation (%) 2025-04-27 19:09:00.000 97 % O2 Saturation (%) 2025-04-23 15:57:00.000 91 % O2 Saturation (%) 2025-04-20 12:54:00.000 93 % O2 Saturation (%) 2025-04-16 14:49:00.000 96 % O2 Saturation (%) 2025-04-13 09:28:00.000 98 % O2 Saturation (%) 2025-04-09 10:43:00.000 97 % O2 Saturation (%) 2025-04-03 08:23:00.000 98 % O2 Saturation (%) 2025-03-30 12:22:00.000 98 % Respirations 2025-05-18 19:13:00.000 18 /min Respirations 2025-05-14 12:50:00.000 18 /min Respirations 2025-05-11 09:24:00.000 18 /min Respirations 2025-05-08 13:33:00.000 18 /min Respirations 2025-05-06 13:43:00.000 18 /min Respirations 2025-05-02 19:44:00.000 18 /min Respirations 2025-05-01 11:50:00.000 16 /min Respirations 2025-04-27 19:09:00.000 18 /min Respirations 2025-04-23 15:57:00.000 18 /min Respirations 2025-04-20 12:54:00.000 18 /min Respirations 2025-04-16 14:49:00.000 18 /min Respirations 2025-04-13 09:28:00.000 18 /min Respirations 2025-04-09 10:43:00.000 18 /min Respirations 2025-04-03 08:23:00.000 18 /min Respirations 2025-03-30 12:22:00.000 18 /min Weight (lbs) 2025-05-18 19:13:00.000 Weight (lbs) 2025-05-08 13:33:00.000 Weight (lbs) 2025-05-06 13:43:00.000 Systolic Blood Pressure 2025-05-18 19:13:00.000 115 mm [Hg] Systolic Blood Pressure 2025-05-14 12:50:00.000 110 mm [Hg] Systolic Blood Pressure 2025-05-11 09:24:00.000 95 mm[ Hg] Systolic Blood Pressure 2025-05-08 13:33:00.000 100 mm [Hg] Systolic Blood Pressure 2025-05-06 13:43:00.000 100 mm [Hg] Systolic Blood Pressure 2025-05-02 19:44:00.000 112 mm [Hg] Systolic Blood Pressure 2025-05-01 11:50:00.000 110 mm [Hg] Systolic Blood Pressure 2025-04-27 19:09:00.000 115 mm [Hg] Systolic Blood Pressure 2025-04-23 15:57:00.000 108 mm [Hg] Systolic Blood Pressure 2025-04-20 12:54:00.000 100 mm [Hg] Systolic Blood Pressure 2025-04-16 14:49:00.000 100 mm [Hg] Systolic Blood Pressure 2025-04-13 09:28:00.000 100 mm [Hg] Systolic Blood Pressure 2025-04-09 10:43:00.000 110 mm [Hg] Systolic Blood Pressure 2025-04-03 08:23:00.000 115 mm [Hg] Systolic Blood Pressure 2025-03-30 12:22:00.000 128 mm [Hg] Diastolic Blood Pressure 2025-05-18 19:13:00.000 60 mm [Hg] Diastolic Blood Pressure 2025-05-14 12:50:00.000 70 mm [Hg] Diastolic Blood Pressure 2025-05-11 09:24:00.000 55 mm [Hg] Diastolic Blood Pressure 2025-05-08 13:33:00.000 70 mm [Hg] Diastolic Blood Pressure 2025-05-06 13:43:00.000 60 mm [Hg] Diastolic Blood Pressure 2025-05-02 19:44:00.000 75 mm [Hg] Diastolic Blood Pressure 2025-05-01 11:50:00.000 75 mm [Hg] Diastolic Blood Pressure 2025-04-27 19:09:00.000 75 mm [Hg] Diastolic Blood Pressure 2025-04-23 15:57:00.000 75 mm [Hg] Diastolic Blood Pressure 2025-04-20 12:54:00.000 60 mm [Hg] Diastolic Blood Pressure 2025-04-16 14:49:00.000 70 mm [Hg] Diastolic Blood Pressure 2025-04-13 09:28:00.000 60 mm [Hg] Diastolic Blood Pressure 2025-04-09 10:43:00.000 75 mm [Hg] Diastolic Blood Pressure 2025-04-03 08:23:00.000 75 mm [Hg] Diastolic Blood Pressure 2025-03-30 12:22:00.000 75 mm [Hg] Plan of Treatment Planned Activity Planned Date Details Comments Future Scheduled Test RN TO OBSE RVE, ASSESS, EVALUATE, AND DEVELOP AN INDIVIDUALIZED PLAN OF CARE. AGENCY MAY ACCEPT ORDERS FROM CONSULTING PHYSICIANS ZHANG RN TO OBSERVE AND ASSESS, MEDICAL DRIVER/MATERIAL DAMAGE ADJUSTER TO OBSERVE FOR RISK FOR FALLS AND INSTRUCT IN FALL PREVENTION, HOME SAFETY, MEDICATION MANAGEMENT, INFECTION PREVENTION, AND NUTRITION MANAGEMENT. RN/MEDICAL DRIVER/MATERIAL DAMAGE ADJUSTER NURSE MAY PERFORM O2 SATURATION LEVEL ON ADMISSION AND PRN FOR RN TO ASSESS/MEDICAL DRIVER TO OBSERVE PATIENT, WITH NOTIFICATION TO THE PHYSICIAN IF SATURATION IS 90% IN THE ABSENCE OF MORE SPECIFIC PARAMETERS FROM THE PHYSICIAN. AGENCY MAY PERFORM A RESUMPTION OF CARE VISIT FOLLOWING ANY HOSPITAL ADMISSION. RN/MEDICAL DRIVER/MATERIAL DAMAGE ADJUSTER TO MONITOR CO-MORBID CONDITIONS LISTED ON THE PLAN OF CARE AND ANY NEW CONDITIONS THAT PRESENT THEMSELVES DURING THIS EPISODE TO IDENTIFY CHANGES AND INTERVENE TO MINIMIZE COMPLICATIONS. [code = RN TO OBSERVE, ASSESS, EVALUATE, AND DEVELOP AN INDIVIDUALIZED PLAN OF CARE. AGENCY MAY ACCEPT ORDERS FROM CONSULTING PHYSICIANS ZHANG PERALES TO OBSERVE AND ASSESS, MEDICAL DRIVER/MATERIAL DAMAGE ADJUSTER TO OBSERVE FOR RISK FOR FALLS AND INSTRUCT IN FALL PREVENTION, HOME SAFETY, MEDICATION MANAGEMENT, INFECTION PREVENTION, AND NUTRITION MANAGEMENT. RN/MEDICAL DRIVER/MATERIAL DAMAGE ADJUSTER NURSE MAY PERFORM O2 SATURATION LEVEL ON ADMISSION AND PRN FOR RN TO ASSESS/MEDICAL DRIVER TO OBSERVE PATIENT, WITH NOTIFICATION TO THE PHYSICIAN IF SATURATION IS 90% IN THE ABSENCE OF MORE SPECIFIC PARAMETERS FROM THE PHYSICIAN. AGENCY MAY PERFORM A RESUMPTION OF CARE VISIT FOLLOWING ANY HOSPITAL ADMISSION. RN/MEDICAL DRIVER/MATERIAL DAMAGE ADJUSTER TO MONITOR CO-MORBID CONDITIONS LISTED ON THE PLAN OF CARE AND ANY NEW CONDITIONS THAT PRESENT THEMSELVES DURING THIS EPISODE TO IDENTIFY CHANGES AND INTERVENE TO MINIMIZE COMPLICATIONS.] Future Scheduled Test MEDICATION MANAGEMENT; RN/MEDICAL DRIVER/MATERIAL DAMAGE ADJUSTER TO REVIEW MEDICATIONS FOR INTERACTIONS, EFFECTIVENESS OF DRUG THERAPY, AND SIGNS/SYMPTOMS OF ADVERSE REACTIONS. MAY INSTRUCT AND REINFORCE MEDICATION TEACHING RELATED TO THE USE OF MEDICATIONS, DOSAGE, FREQUENCY, PURPOSE, SIDE EFFECTS, AND TO REPORT COMPLICATIONS. [code = MEDICATION MANAGEMENT; RN/MEDICAL DRIVER/MATERIAL DAMAGE ADJUSTER TO REVIEW MEDICATIONS FOR INTERACTIONS, EFFECTIVENESS OF DRUG THERAPY, AND SIGNS/SYMPTOMS OF ADVERSE REACTIONS. MAY INSTRUCT AND REINFORCE MEDICATION TEACHING RELATED TO THE USE OF MEDICATIONS, DOSAGE, FREQUENCY, PURPOSE, SIDE EFFECTS, AND TO REPORT COMPLICATIONS.] Future Scheduled Test RESPIRATOR Y SYSTEM MANAGEMENT; RN TO ASSESS AND TEACH, MEDICAL DRIVER/MATERIAL DAMAGE ADJUSTER TO OBSERVE AND TEACH RELATED TO ALTERED RESPIRATORY STATUS TO MINIMIZE COMPLICATIONS AND REDUCE HOSPITALIZATION. [code = RESPIRATORY SYSTEM MANAGEMENT; RN TO ASSESS AND TEACH, MEDICAL DRIVER/MATERIAL DAMAGE ADJUSTER TO OBSERVE AND TEACH RELATED TO ALTERED RESPIRATORY STATUS TO MINIMIZE COMPLICATIONS AND REDUCE HOSPITALIZATION.] Future Scheduled Test COPD MANAG EMENT; RN TO ASSESS AND TEACH, MEDICAL DRIVER/MATERIAL DAMAGE ADJUSTER TO OBSERVE AND TEACH SIGNS/SYMPTOMS OF COPD EXACERBATION AND PROVIDE EARLY INTERVENTIONS TO MINIMIZE RISK OF HOSPITALIZATION. RN/MEDICAL DRIVER/MATERIAL DAMAGE ADJUSTER TO INSTRUCT ON SELF-CARE MANAGEMENT INCLUDING BREATHING TECHNIQUES, AIRWAY CLEARANCE, AND PROPER USE OF COPD MEDICATIONS. RN TO ASSESS AND TEACH, MEDICAL DRIVER/MATERIAL DAMAGE ADJUSTER TO OBSERVE AND TEACH PATIENT/CAREGIVER ABILITY TO MONITOR AND RECORD VITAL SIGNS INCLUDING PULSE OXIMETRY AND BLOOD PRESSURE. PULSE OXIMETER AND BP MONITOR TO BE PROVIDED IF NEEDED [code = COPD MANAGEMENT; RN TO ASSESS AND TEACH, MEDICAL DRIVER/MATERIAL DAMAGE ADJUSTER TO OBSERVE AND TEACH SIGNS/SYMPTOMS OF COPD EXACERBATION AND PROVIDE EARLY INTERVENTIONS TO MINIMIZE RISK OF HOSPITALIZATION. RN/MEDICAL DRIVER/MATERIAL DAMAGE ADJUSTER TO INSTRUCT ON SELF-CARE MANAGEMENT INCLUDING BREATHING TECHNIQUES, AIRWAY CLEARANCE, AND PROPER USE OF COPD MEDICATIONS. RN TO ASSESS AND TEACH, MEDICAL DRIVER/MATERIAL DAMAGE ADJUSTER TO OBSERVE AND TEACH PATIENT/CAREGIVER ABILITY TO MONITOR AND RECORD VITAL SIGNS INCLUDING PULSE OXIMETRY AND BLOOD PRESSURE. PULSE OXIMETER AND BP MONITOR TO BE PROVIDED IF NEEDED] Future Scheduled Test OXYGEN THE RAPY; RN/MEDICAL DRIVER/MATERIAL DAMAGE ADJUSTER TO INSTRUCT ON OXYGEN MANAGEMENT INCLUDING: ADMINISTRATION AT 3 L/MIN VIA CONTINUOUS/PRN FOR CARE OF EQUIPMENT AND SAFETY. [code = OXYGEN THERAPY; RN/MEDICAL DRIVER/MATERIAL DAMAGE ADJUSTER TO INSTRUCT ON OXYGEN MANAGEMENT INCLUDING: ADMINISTRATION AT 3 L/MIN VIA CONTINUOUS/PRN FOR CARE OF EQUIPMENT AND SAFETY.] Future Scheduled Test GENITOURIN MAHESH MANAGEMENT; RN TO ASSESS AND TEACH, MEDICAL DRIVER/MATERIAL DAMAGE ADJUSTER TO OBSERVE AND TEACH RELATED TO ALTERED GENITOURINARY STATUS TO MINIMIZE COMPLICATIONS AND REDUCE HOSPITALIZATION. [code = GENITOURINARY MANAGEMENT; RN TO ASSESS AND TEACH, MEDICAL DRIVER/MATERIAL DAMAGE ADJUSTER TO OBSERVE AND TEACH RELATED TO ALTERED GENITOURINARY STATUS TO MINIMIZE COMPLICATIONS AND REDUCE HOSPITALIZATION.] Future Scheduled Test INDWELLING URINARY CATHETER INSERTION; RN/MEDICAL DRIVER/MATERIAL DAMAGE ADJUSTER TO PERFORM INSERTION OF 18 FR INDWELLING CATHETER, INSTILL 30 CC OF STERILE WATER INTO BALLOON, SECURE TUBING WITH APPROPRIATE SECUREMENT DEVICE CHANGE MONTHLY AND PRN FOR LEAKAGE, BLOCKAGE, DISLODGEMENT, OR MALFUNCTION. [code = INDWELLING URINARY CATHETER INSERTION; RN/MEDICAL DRIVER/MATERIAL DAMAGE ADJUSTER TO PERFORM INSERTION OF 18 FR INDWELLING CATHETER, INSTILL 30 CC OF STERILE WATER INTO BALLOON, SECURE TUBING WITH APPROPRIATE SECUREMENT DEVICE CHANGE MONTHLY AND PRN FOR LEAKAGE, BLOCKAGE, DISLODGEMENT, OR MALFUNCTION.] Future Scheduled Test INDWELLING URINARY CATHETER MANAGEMENT; RN/MEDICAL DRIVER/MATERIAL DAMAGE ADJUSTER TO INSTRUCT PATIENT / CAREGIVER ON INDWELLING URINARY CATHETER MANAGEMENT INCLUDING CARE OF CATHETER, SIGN AND SYMPTOMS OF COMPLICATIONS, PERINEAL CARE, TUBE AND BAG PLACEMENT, PREVENTION OF INFECTION AND SKIN BREAKDOWN. [code = INDWELLING URINARY CATHETER MANAGEMENT; RN/MEDICAL DRIVER/MATERIAL DAMAGE ADJUSTER TO INSTRUCT PATIENT / CAREGIVER ON INDWELLING URINARY CATHETER MANAGEMENT INCLUDING CARE OF CATHETER, SIGN AND SYMPTOMS OF COMPLICATIONS, PERINEAL CARE, TUBE AND BAG PLACEMENT, PREVENTION OF INFECTION AND SKIN BREAKDOWN.] Future Scheduled Test PRN VISITS ; NUMBER OF RN/MEDICAL DRIVER/MATERIAL DAMAGE ADJUSTER VISITS: 2 RN/MEDICAL DRIVER/MATERIAL DAMAGE ADJUSTER TO PERFORM: 2 FOR THE FOLLOWING REASONS: CATHETER OBSERVATION [code = PRN VISITS; NUMBER OF RN/MEDICAL DRIVER/MATERIAL DAMAGE ADJUSTER VISITS: 2 RN/MEDICAL DRIVER/MATERIAL DAMAGE ADJUSTER TO PERFORM: 2 FOR THE FOLLOWING REASONS: CATHETER OBSERVATION] Future Scheduled Test RN/MEDICAL DRIVER/MATERIAL DAMAGE ADJUSTER TO PERFORM/TEACH PATIENT/CAREGIVER WOUND CARE PRESSURE INJURY TO RIGHT HEEL, LEFT AND RIGHT CHEEK OF BUTTOCKS IRRIGATE/CLEANSE WITH WOUND WASH APPLY CALCIUM ALGINATE PLACE BORDER GAUZE MAY APPLY SKIN BARRIER TO PERIWOUND PRN TO PREVENT MACERATION AND PROTECT PERIWOUND CHANGE DRESSING EVERY 2 DAYS AND CAREGIVER FOR DISLODGEMENT AND SOILING AND INBETWEEN AGENCY VISITS [code = RN/MEDICAL DRIVER/MATERIAL DAMAGE ADJUSTER TO PERFORM/TEACH PATIENT/CAREGIVER WOUND CARE PRESSURE INJURY TO RIGHT HEEL, LEFT AND RIGHT CHEEK OF BUTTOCKS IRRIGATE/CLEANSE WITH WOUND WASH APPLY CALCIUM ALGINATE PLACE BORDER GAUZE MAY APPLY SKIN BARRIER TO PERIWOUND PRN TO PREVENT MACERATION AND PROTECT PERIWOUND CHANGE DRESSING EVERY 2 DAYS AND CAREGIVER FOR DISLODGEMENT AND SOILING AND INBETWEEN AGENCY VISITS] Goal 2024-11-26 Patient Goal - DONT GET UTI Goal 2025-01-27 Patient Goal - DONT GET UTI Goal 2025-03-24 Patient Goal - DONT GET UTI Goal Patient Goal - DONT GET UTI Goal Provider Goal - A PLAN OF CARE WILL BE ESTABLISHED THAT MEETS THE PATIENT S NEEDS. PATIENT WILL DEMONSTRATE OXYGEN SATURATION WITHIN NORMAL LIMITS OR PATIENT S OPTIMAL LEVEL ESTABLISHED BY THE PHYSICIAN THROUGHOUT CARE. CHANGES TO CO-MORBID CONDITIONS AND ANY NEW CONDITIONS WILL BE IDENTIFIED AND REPORTED TO THE PHYSICIAN. Goal Provider Goal - PATIENT/CAREGIVER TO VERBALIZE, AND CONSISTENTLY DEMONSTRATE EFFECTIVE, SAFE MANAGEMENT OF MEDICATION INCLUDING KNOWLEDGE OF EFFECTIVENESS, POTENTIAL SIDE EFFECTS AND DRUG REACTIONS AND WHEN TO CONTACT THE APPROPRIATE CARE PROVIDER. PATIENT/CAREGIVER WILL BE ABLE TO VERBALIZE UNDERSTANDING OF MEDICATION REGIMEN AND ACCURATELY TAKE MEDICATIONS PRESCRIBED WITHOUT ADVERSE EFFECTS BY 05/27/25 Goal Provider Goal - PATIENT / CAREGIVER WILL VERBALIZE/DEMONSTRATE UNDERSTANDING OF MEASURES TO MANAGE ALTERED RESPIRATORY STATUS BY 05/27/25 Goal Provider Goal - PATIENT / CAREGIVER WILL VERBALIZE/DEMONSTRATE AN ABILITY TO ADHERE TO SELF-MANAGEMENT OF COPD TO MINIMIZE COMPLICATIONS AND AVOID HOSPITALIZATION BY 05/27/25 Goal Provider Goal - PATIENT/CAREGIVER WILL VERBALIZE/DEMONSTRATE UNDERSTANDING OF CARE AND MANAGEMENT OF OXYGEN THERAPY BY 05/27/25 Goal Provider Goal - PATIENT / CAREGIVER WILL VERBALIZE/DEMONSTRATE UNDERSTANDING OF MEASURES TO MANAGE ALTERED GENITOURINARY STATUS BY 05/27/25 Goal Provider Goal - PATIENT WILL VERBALIZE/TOLERATE CATHETER CHANGE BY 05/27/25 Goal Provider Goal - PATIENT/CAREGIVER WILL VERBALIZE/DEMONSTRATE UNDERSTANDING OF CARE AND MANAGEMENT OF INDWELLING CATHETER BY 05/27/25 Goal Provider Goal - Goal Provider Goal - PATIENT / CAREGIVER WILL VERBALIZE / DEMONSTRATE ABILITY TO PERFORM WOUND CARE. WOUND STATUS WILL IMPROVE EVIDENCED BY A DECREASE IN SIZE, DRAINAGE, ABSENCE OF INFECTION, AND DECREASED PAIN BY END OF EPISODE. Encounters Start Date/Time End Date/Time Encounter Type Admission Type Attending Clinicians Care Facility Care Department Encounter ID Discharge Date Discharge Status Discharge Condition Discharge Reason Percent Goals Met 2025-03-29 00:00:00 2025-05-27 00:00:00 Outpatient DENTON HICKS [facility] [id number]
--- OUTSIDE RECORDS SUMMARY | 2025-05-26 19:00 | XMS_ITS | Clinical Summary ---
Author Organization Unknown Care Team Providers Care Shell Reprint Operator Name Role Phone ZHANG PATEL, ALANA Unavailable Unavailable JODIE PERALES, DENTON Unavailable Unavailable EMMANUEL ATKINSON, MARSHALL Unavailable Unavailable Payers Payer Name Policy Type Policy Number Effective Date Expira tion Date MEDICARE.[facility] [id number] Problems Condition Name Condition Details Condition Category [...] ON SUPPLEMENTAL OXYGEN Active 06-04 00:00: 00 INTERMEDIATE (CURRENT) USE OF INSULIN Active 06-04 00:00: 00 INTERMEDIATE (CURRENT) USE OF ANTICOAGULAN TS Active 06-04 [...] 4 mg tablet 09-24 00:00: 00 Yes [id number] MUSCLE 1 tablet 2 TIMES DAILY 1 tablet 2 TIMES DAILY (route: oral) Med Classific ation: Locomotor System Novolog FlexPen U-100 Insulin aspart 100 unit/mL (3 mL) [facility] 09-19 00:00: 00 Yes [id number] Unavailable Per instruc tions BEFORE each meal based ON correction scale Max Daily Per instructio ns BEFORE each meal based ON correction scale Max Daily ([facility] Med Classific ation: Endocrine levothyroxi ne 150 mcg tablet 09-18 00:00: 00 Yes [id number] Unavailable Per instruc tions EVERY DAY FOR 6 DAYS of THE WEEK FOR 1 DAY of THE WEEK Per instructio ns EVERY DAY FOR 6 DAYS of THE WEEK FOR 1 DAY of THE WEEK (route: oral) Med Classific ation: Endocrine pregabalin 100 mg capsule 16 00:00: 00 Yes [id number] PAIN 1 capsule THREE TIMES DAILY 1 capsule THREE TIMES DAILY (route: oral) Med Classific ation: Central Nervous System Agents allopurinol 300 mg tablet -14 00:00: 00 Yes [id number] GOUT 1 tablet DAILY 1 tablet DAILY (route: oral) Med Classific ation: Gout and Hyperuric emia Therapy aripiprazol e 5 mg tablet 09-15 00:00: 00 Yes [id number] DEPRESSION 1 tablet EVERY DAY 1 tablet EVERY DAY (route: oral) Med Classific ation: Central Nervous System Agents methenamine hippurate 1 gram tablet 09-15 00:00: 00 Yes [id number] Unavailable Per instruc tions EVERY DAY Per instructio ns EVERY DAY (route: oral) Med Classific ation: Genitouri nary Therapy metoprolol succinate ER 25 mg tablet,exte nded release 24 hr 09-15 00:00: 00 Yes [id number] BLOOD PRESSURE Per instruc tions TWICE DAILY Per instructio ns TWICE DAILY (route: oral) Med Classific ation: Cardiovas cular Therapy Agents montelukast 10 mg tablet 09-15 00:00: 00 Yes [id number] ALLERGIES Per instruc tions AT BEDTIME Per instructio ns AT BEDTIME (route: oral) Med Classific ation: Respirato ry Therapy Agents pantoprazol e 40 mg tablet,jess yed release 09-15 00:00: 00 Yes [id number] REFLUX 1 tablet EVERY DAY 1 tablet EVERY DAY (route: oral) Med Classific ation: Gastroint estinal Therapy Agents potassium chloride ER 20 mEq tablet,exte nded release(par t/cryst) 09-15 00:00: 00 Yes [id number] SUPPLEMENT 1 tablet EVERY DAY 1 tablet EVERY DAY (route: oral) Med Classific ation: Electroly te Balance-N utritiona l Products ranolazine ER 500 mg tablet,exte nded release,12 hr 09-15 00:00: 00 Yes [id number] CHESTVPAIN 1 tablet EVERY TWELVE HOURS 1 tablet EVERY TWELVE HOURS (route: oral) Med Classific ation: Cardiovas cular Therapy Agents spironolact one 25 mg tablet 09-15 00:00: 00 Yes [id number] FLUID Per instruc tions EVERY DAY Per instructio ns EVERY DAY (route: oral) Med Classific ation: Cardiovas cular Therapy Agents tizanidine 4 mg tablet 09-15 00:00: 00 09-30 00:00 :00 No [id number] Per instruc tions EVERY DAY AT BEDTIME NEEDED Per instructio ns EVERY DAY AT BEDTIME NEEDED (route: oral) Med Classific ation: Locomotor System topiramate 25 mg tablet 14 00:00: 00 Yes [id number] HEADACHE 1 tablet TWICE DAILY 1 tablet TWICE DAILY (route: oral) Med Classific ation: Central Nervous System Agents topiramate 50 mg tablet 14 00:00: 00 Yes [id number] HEADACHE 1 tablet TWICE DAILY 1 tablet TWICE DAILY (route: oral) Med Classific ation: Central Nervous System Agents Xarelto 15 mg tablet 09-15 00:00: 00 Yes [id number] HEART Per instruc tions EVERY Per instructio ns EVERY (route: oral) Med Classific ation: Hematolog ical Agents amoxicillin 500 mg capsule 09-12 00:00: 00 09-30 23:59 :00 No [id number] ANTIBIOTIC 1 capsule THREE TIMES DAILY FOR 7 DAYS 1 capsule THREE TIMES DAILY FOR 7 DAYS (route: oral) Med Classific ation: Anti-Infe ctive Agents Ozempic 2 mg/dose (8 mg/3 mL) subcutaneou s pen injector 09-11 00:00: 00 Yes [id number] A2DM 2 mg WEEKLY 2 mg WEEKLY (route: subcutaneo us) Med Classific ation: Endocrine oxycodone 15 mg tablet 331 00:00: 00 Yes [id number] PAIN 1 tablet 4 TIMES DAILY 1 tablet 4 TIMES DAILY (route: oral) Med Classific ation: Analgesic , Anti-infl ammatory or Antipyret ic furosemide 40 mg tablet 27 00:00: 00 Yes [id number] FLUID 1 tablet TWICE DAILY 1 tablet TWICE DAILY (route: oral) Med Classific ation: Cardiovas cular Therapy Agents albuterol sulfate 0.63 mg/3 mL solution for nebulizatio n 09-30 00:00: 00 Yes [id number] BREATHING 3 mL EVERY 6 HOURS 3 mL EVERY 6 HOURS (route: inhalation ) Med Classific ation: Respirato ry Therapy Agents albuterol sulfate HFA 90 mcg/actuati on aerosol inhaler 09-30 00:00: 00 Yes [id number] LUNGS 2 puff EVERY 4 HOURS 2 puff EVERY 4 HOURS (route: inhalation ) Med Classific ation: Respirato ry Therapy Agents aspirin 81 mg chewable tablet 09-30 00:00: 00 Yes [id number] HEART 1 tablet DAILY 1 tablet DAILY (route: oral) Med Classific ation: Hematolog ical Agents cetirizine 10 mg tablet 09-30 00:00: 00 Yes [id number] ALLERGIES 1 tablet DAILY 1 tablet DAILY (route: oral) Med Classific ation: Respirato ry Therapy Agents diazepam 5 mg tablet 09-30 00:00: 00 Yes [id number] ANXIETY 1 tablet 3 TIMES DAILY 1 tablet 3 TIMES DAILY (route: oral) Med Classific ation: Central Nervous System Agents nitroglycer in 0.4 mg sublingual tablet 09-30 00:00: 00 Yes [id number] HEART Per instruc tions DIRECTED Per instructio ns DIRECTED (route: sublingual ) Med Classific ation: Cardiovas cular Therapy Agents oxygen gas for inhalation 09-30 00:00: 00 Yes [id number] SUPPLEMENTA L OXYGEN 2 Liter DAILY 2 Liter DAILY (route: inhalation ) Med Classific ation: Medical Supplies and Durable Medical Equipment (DME) Vitamin D3 50 mcg (2,000 unit) capsule 09-30 00:00: 00 Yes [id number] SUPPLEMENT 1 capsule DAILY 1 capsule DAILY [...] PHYSICIANS ZHANG RN TO OBSERVE AND ASSESS, REHABILITATION MEDICINE PHYSICIAN/DIE FINISHER FORGING TO OBSERVE FOR RISK FOR FALLS AND INSTRUCT IN FALL PREVENTION, HOME SAFETY, MEDICATION MANAGEMENT, INFECTION PREVENTION, AND NUTRITION MANAGEMENT. RN/REHABILITATION MEDICINE PHYSICIAN/DIE FINISHER FORGING NURSE MAY PERFORM O2 SATURATION LEVEL ON ADMISSION AND PRN FOR RN TO ASSESS/REHABILITATION MEDICINE PHYSICIAN TO OBSERVE PATIENT, WITH NOTIFICATION TO THE PHYSICIAN IF SATURATION IS 90% IN THE ABSENCE OF MORE SPECIFIC PARAMETERS FROM THE PHYSICIAN. AGENCY MAY PERFORM A RESUMPTION OF CARE VISIT FOLLOWING ANY HOSPITAL ADMISSION. RN/REHABILITATION MEDICINE PHYSICIAN/DIE FINISHER FORGING TO MONITOR CO-MORBID CONDITIONS LISTED ON THE PLAN OF CARE AND ANY NEW CONDITIONS THAT PRESENT THEMSELVES DURING THIS EPISODE TO IDENTIFY CHANGES AND INTERVENE TO MINIMIZE COMPLICATIONS. [code = RN TO OBSERVE, ASSESS, EVALUATE, AND DEVELOP AN INDIVIDUALIZED PLAN OF CARE. AGENCY MAY ACCEPT ORDERS FROM CONSULTING PHYSICIANS ZHANG PERALES TO OBSERVE AND ASSESS, REHABILITATION MEDICINE PHYSICIAN/DIE FINISHER FORGING TO OBSERVE FOR RISK FOR FALLS AND INSTRUCT IN FALL PREVENTION, HOME SAFETY, MEDICATION MANAGEMENT, INFECTION PREVENTION, AND NUTRITION MANAGEMENT. RN/REHABILITATION MEDICINE PHYSICIAN/DIE FINISHER FORGING NURSE MAY PERFORM O2 SATURATION LEVEL ON ADMISSION AND PRN FOR RN TO ASSESS/REHABILITATION MEDICINE PHYSICIAN TO OBSERVE PATIENT, WITH NOTIFICATION TO THE PHYSICIAN IF SATURATION IS 90% IN THE ABSENCE OF MORE SPECIFIC PARAMETERS FROM THE PHYSICIAN. AGENCY MAY PERFORM A RESUMPTION OF CARE VISIT FOLLOWING ANY HOSPITAL ADMISSION. RN/REHABILITATION MEDICINE PHYSICIAN/DIE FINISHER FORGING TO MONITOR CO-MORBID CONDITIONS LISTED ON THE PLAN OF CARE AND ANY NEW CONDITIONS THAT PRESENT THEMSELVES DURING THIS EPISODE TO IDENTIFY CHANGES AND INTERVENE TO MINIMIZE COMPLICATIONS.] Future Scheduled Test MEDICATION MANAGEMENT; RN/REHABILITATION MEDICINE PHYSICIAN/DIE FINISHER FORGING TO REVIEW MEDICATIONS FOR INTERACTIONS, EFFECTIVENESS OF DRUG THERAPY, AND SIGNS/SYMPTOMS OF ADVERSE REACTIONS. MAY INSTRUCT AND REINFORCE MEDICATION TEACHING RELATED TO THE USE OF MEDICATIONS, DOSAGE, FREQUENCY, PURPOSE, SIDE EFFECTS, AND TO REPORT COMPLICATIONS. [code = MEDICATION MANAGEMENT; RN/REHABILITATION MEDICINE PHYSICIAN/DIE FINISHER FORGING TO REVIEW MEDICATIONS FOR INTERACTIONS, EFFECTIVENESS OF DRUG THERAPY, AND SIGNS/SYMPTOMS OF ADVERSE REACTIONS. MAY INSTRUCT AND REINFORCE MEDICATION TEACHING RELATED TO THE USE OF MEDICATIONS, DOSAGE, FREQUENCY, PURPOSE, SIDE EFFECTS, AND TO REPORT COMPLICATIONS.] Future Scheduled Test RESPIRATOR Y SYSTEM MANAGEMENT; RN TO ASSESS AND TEACH, REHABILITATION MEDICINE PHYSICIAN/DIE FINISHER FORGING TO OBSERVE AND TEACH RELATED TO ALTERED RESPIRATORY STATUS TO MINIMIZE COMPLICATIONS AND REDUCE HOSPITALIZATION. [code = RESPIRATORY SYSTEM MANAGEMENT; RN TO ASSESS AND TEACH, REHABILITATION MEDICINE PHYSICIAN/DIE FINISHER FORGING TO OBSERVE AND TEACH RELATED TO ALTERED RESPIRATORY STATUS TO MINIMIZE COMPLICATIONS AND REDUCE HOSPITALIZATION.] Future Scheduled Test COPD MANAG EMENT; RN TO ASSESS AND TEACH, REHABILITATION MEDICINE PHYSICIAN/DIE FINISHER FORGING TO OBSERVE AND TEACH SIGNS/SYMPTOMS OF COPD EXACERBATION AND PROVIDE EARLY INTERVENTIONS TO MINIMIZE RISK OF HOSPITALIZATION. RN/REHABILITATION MEDICINE PHYSICIAN/DIE FINISHER FORGING TO INSTRUCT ON SELF-CARE MANAGEMENT INCLUDING BREATHING TECHNIQUES, AIRWAY CLEARANCE, AND PROPER USE OF COPD MEDICATIONS. RN TO ASSESS AND TEACH, REHABILITATION MEDICINE PHYSICIAN/DIE FINISHER FORGING TO OBSERVE AND TEACH PATIENT/CAREGIVER ABILITY TO MONITOR AND RECORD VITAL SIGNS INCLUDING PULSE OXIMETRY AND BLOOD PRESSURE. PULSE OXIMETER AND BP MONITOR TO BE PROVIDED IF NEEDED [code = COPD MANAGEMENT; RN TO ASSESS AND TEACH, REHABILITATION MEDICINE PHYSICIAN/DIE FINISHER FORGING TO OBSERVE AND TEACH SIGNS/SYMPTOMS OF COPD EXACERBATION AND PROVIDE EARLY INTERVENTIONS TO MINIMIZE RISK OF HOSPITALIZATION. RN/REHABILITATION MEDICINE PHYSICIAN/DIE FINISHER FORGING TO INSTRUCT ON SELF-CARE MANAGEMENT INCLUDING BREATHING TECHNIQUES, AIRWAY CLEARANCE, AND PROPER USE OF COPD MEDICATIONS. RN TO ASSESS AND TEACH, REHABILITATION MEDICINE PHYSICIAN/DIE FINISHER FORGING TO OBSERVE AND TEACH PATIENT/CAREGIVER ABILITY TO MONITOR AND RECORD VITAL SIGNS INCLUDING PULSE OXIMETRY AND BLOOD PRESSURE. PULSE OXIMETER AND BP MONITOR TO BE PROVIDED IF NEEDED] Future Scheduled Test OXYGEN THE RAPY; RN/REHABILITATION MEDICINE PHYSICIAN/DIE FINISHER FORGING TO INSTRUCT ON OXYGEN MANAGEMENT INCLUDING: ADMINISTRATION AT 3 L/MIN VIA CONTINUOUS/PRN FOR CARE OF EQUIPMENT AND SAFETY. [code = OXYGEN THERAPY; RN/REHABILITATION MEDICINE PHYSICIAN/DIE FINISHER FORGING TO INSTRUCT ON OXYGEN MANAGEMENT INCLUDING: ADMINISTRATION AT 3 L/MIN VIA CONTINUOUS/PRN FOR CARE OF EQUIPMENT AND SAFETY.] Future Scheduled Test GENITOURIN MAHESH MANAGEMENT; RN TO ASSESS AND TEACH, REHABILITATION MEDICINE PHYSICIAN/DIE FINISHER FORGING TO OBSERVE AND TEACH RELATED TO ALTERED GENITOURINARY STATUS TO MINIMIZE COMPLICATIONS AND REDUCE HOSPITALIZATION. [code = GENITOURINARY MANAGEMENT; RN TO ASSESS AND TEACH, REHABILITATION MEDICINE PHYSICIAN/DIE FINISHER FORGING TO OBSERVE AND TEACH RELATED TO ALTERED GENITOURINARY STATUS TO MINIMIZE COMPLICATIONS AND REDUCE HOSPITALIZATION.] Future Scheduled Test INDWELLING URINARY CATHETER INSERTION; RN/REHABILITATION MEDICINE PHYSICIAN/DIE FINISHER FORGING TO PERFORM INSERTION OF 18 FR INDWELLING CATHETER, INSTILL 30 CC OF STERILE WATER INTO BALLOON, SECURE TUBING WITH APPROPRIATE SECUREMENT DEVICE CHANGE MONTHLY AND PRN FOR LEAKAGE, BLOCKAGE, DISLODGEMENT, OR MALFUNCTION. [code = INDWELLING URINARY CATHETER INSERTION; RN/REHABILITATION MEDICINE PHYSICIAN/DIE FINISHER FORGING TO PERFORM INSERTION OF 18 FR INDWELLING CATHETER, INSTILL 30 CC OF STERILE WATER INTO BALLOON, SECURE TUBING WITH APPROPRIATE SECUREMENT DEVICE CHANGE MONTHLY AND PRN FOR LEAKAGE, BLOCKAGE, DISLODGEMENT, OR MALFUNCTION.] Future Scheduled Test INDWELLING URINARY CATHETER MANAGEMENT; RN/REHABILITATION MEDICINE PHYSICIAN/DIE FINISHER FORGING TO INSTRUCT PATIENT / CAREGIVER ON INDWELLING URINARY CATHETER MANAGEMENT INCLUDING CARE OF CATHETER, SIGN AND SYMPTOMS OF COMPLICATIONS, PERINEAL CARE, TUBE AND BAG PLACEMENT, PREVENTION OF INFECTION AND SKIN BREAKDOWN. [code = INDWELLING URINARY CATHETER MANAGEMENT; RN/REHABILITATION MEDICINE PHYSICIAN/DIE FINISHER FORGING TO INSTRUCT PATIENT / CAREGIVER ON INDWELLING URINARY CATHETER MANAGEMENT INCLUDING CARE OF CATHETER, SIGN AND SYMPTOMS OF COMPLICATIONS, PERINEAL CARE, TUBE AND BAG PLACEMENT, PREVENTION OF INFECTION AND SKIN BREAKDOWN.] Future Scheduled Test PRN VISITS ; NUMBER OF RN/REHABILITATION MEDICINE PHYSICIAN/DIE FINISHER FORGING VISITS: 2 RN/REHABILITATION MEDICINE PHYSICIAN/DIE FINISHER FORGING TO PERFORM: 2 FOR THE FOLLOWING REASONS: CATHETER OBSERVATION [code = PRN VISITS; NUMBER OF RN/REHABILITATION MEDICINE PHYSICIAN/DIE FINISHER FORGING VISITS: 2 RN/REHABILITATION MEDICINE PHYSICIAN/DIE FINISHER FORGING TO PERFORM: 2 FOR THE FOLLOWING REASONS: CATHETER OBSERVATION] Future Scheduled Test RN/REHABILITATION MEDICINE PHYSICIAN/DIE FINISHER FORGING TO PERFORM/TEACH PATIENT/CAREGIVER WOUND CARE PRESSURE INJURY TO RIGHT HEEL, LEFT AND RIGHT CHEEK OF BUTTOCKS IRRIGATE/CLEANSE WITH WOUND WASH APPLY CALCIUM ALGINATE PLACE BORDER GAUZE MAY APPLY SKIN BARRIER TO PERIWOUND PRN TO PREVENT MACERATION AND PROTECT PERIWOUND CHANGE DRESSING EVERY 2 DAYS AND CAREGIVER FOR DISLODGEMENT AND SOILING AND INBETWEEN AGENCY VISITS [code = RN/REHABILITATION MEDICINE PHYSICIAN/DIE FINISHER FORGING TO PERFORM/TEACH PATIENT/CAREGIVER WOUND CARE PRESSURE INJURY [...] HOME AND RECOMMENDED DEBRIDMENT. PT TO SEE SERVICE PORTER SARAVANAN. PT HAD NEW WOUNDS TO BODY. [...] End Date/Time Encounter Type Admission Type [facility] Care Department Encounter ID Discharge Date Discharge Status Discharge Condition Discharge Reason Percent Goals Met 2025-03-29 00:00:00 2025-05-27 00:00:00 Outpatient [facility] [id number]
--- OUTSIDE RECORDS SUMMARY | 2025-05-26 19:00 | XMS_ITS | Clinical Summary ---
Author Organization Unknown Care Team Providers Care Supervisor [employer] Name Role Phone ZHANG PATEL, ALANA Unavailable Unavailable JODIE PERALES, DENTON Unavailable Unavailable EMMANUEL ATKINSON, MARSHALL Unavailable Unavailable Payers Payer Name Policy Type Policy Number Effective Date Expira tion Date MEDICARE.[facility] [id number] Problems Condition Name Condition Details Condition Category [...] ON SUPPLEMENTAL OXYGEN Active 06-04 00:00: 00 DETENTION (CURRENT) USE OF INSULIN Active 06-04 00:00: 00 DETENTION (CURRENT) USE OF ANTICOAGULAN TS Active 06-04 [...] 4 mg tablet 09-24 00:00: 00 Yes [id number] MUSCLE 1 tablet 2 TIMES DAILY 1 tablet 2 TIMES DAILY (route: oral) Med Classific ation: Locomotor System Novolog FlexPen U-100 Insulin aspart 100 unit/mL (3 mL[facility] 00:00: 00 Yes [id number] Unavailable Per instruc tions BEFORE each meal based ON correction scale Max Daily Per instructio ns BEFORE each meal based ON correction scale [facility] Med Classific ation: Endocrine levothyroxi ne 150 mcg tablet 09-18 00:00: 00 Yes [id number] Unavailable Per instruc tions EVERY DAY FOR 6 DAYS of THE WEEK FOR 1 DAY of THE WEEK Per instructio ns EVERY DAY FOR 6 DAYS of THE WEEK FOR 1 DAY of THE WEEK (route: oral) Med Classific ation: Endocrine pregabalin 100 mg capsule 16 00:00: 00 Yes [id number] PAIN 1 capsule THREE TIMES DAILY 1 capsule THREE TIMES DAILY (route: oral) Med Classific ation: Central Nervous System Agents allopurinol 300 mg tablet -14 00:00: 00 Yes [id number] GOUT 1 tablet DAILY 1 tablet DAILY (route: oral) Med Classific ation: Gout and Hyperuric emia Therapy aripiprazol e 5 mg tablet 09-15 00:00: 00 Yes [id number] DEPRESSION 1 tablet EVERY DAY 1 tablet EVERY DAY (route: oral) Med Classific ation: Central Nervous System Agents methenamine hippurate 1 gram tablet 09-15 00:00: 00 Yes [id number] Unavailable Per instruc tions EVERY DAY Per instructio ns EVERY DAY (route: oral) Med Classific ation: Genitouri nary Therapy metoprolol succinate ER 25 mg tablet,exte nded release 24 hr 09-15 00:00: 00 Yes [id number] BLOOD PRESSURE Per instruc tions TWICE DAILY Per instructio ns TWICE DAILY (route: oral) Med Classific ation: Cardiovas cular Therapy Agents montelukast 10 mg tablet 09-15 00:00: 00 Yes [id number] ALLERGIES Per instruc tions AT BEDTIME Per instructio ns AT BEDTIME (route: oral) Med Classific ation: Respirato ry Therapy Agents pantoprazol e 40 mg tablet,jess yed release 09-15 00:00: 00 Yes [id number] REFLUX 1 tablet EVERY DAY 1 tablet EVERY DAY (route: oral) Med Classific ation: Gastroint estinal Therapy Agents potassium chloride ER 20 mEq tablet,exte nded release(par t/cryst) 09-15 00:00: 00 Yes [id number] SUPPLEMENT 1 tablet EVERY DAY 1 tablet EVERY DAY (route: oral) Med Classific ation: Electroly te Balance-N utritiona l Products ranolazine ER 500 mg tablet,exte nded release,12 hr 09-15 00:00: 00 Yes [id number] CHESTVPAIN 1 tablet EVERY TWELVE HOURS 1 tablet EVERY TWELVE HOURS (route: oral) Med Classific ation: Cardiovas cular Therapy Agents spironolact one 25 mg tablet 09-15 00:00: 00 Yes [id number] FLUID Per instruc tions EVERY DAY Per instructio ns EVERY DAY (route: oral) Med Classific ation: Cardiovas cular Therapy Agents tizanidine 4 mg tablet 09-15 00:00: 00 09-30 00:00 :00 No [id number] Per instruc tions EVERY DAY AT BEDTIME NEEDED Per instructio ns EVERY DAY AT BEDTIME NEEDED (route: oral) Med Classific ation: Locomotor System topiramate 25 mg tablet 14 00:00: 00 Yes [id number] HEADACHE 1 tablet TWICE DAILY 1 tablet TWICE DAILY (route: oral) Med Classific ation: Central Nervous System Agents topiramate 50 mg tablet 14 00:00: 00 Yes [id number] HEADACHE 1 tablet TWICE DAILY 1 tablet TWICE DAILY (route: oral) Med Classific ation: Central Nervous System Agents Xarelto 15 mg tablet 09-15 00:00: 00 Yes [id number] HEART Per instruc tions EVERY Per instructio ns EVERY (route: oral) Med Classific ation: Hematolog ical Agents amoxicillin 500 mg capsule 09-12 00:00: 00 09-30 23:59 :00 No [id number] ANTIBIOTIC 1 capsule THREE TIMES DAILY FOR 7 DAYS 1 capsule THREE TIMES DAILY FOR 7 DAYS (route: oral) Med Classific ation: Anti-Infe ctive Agents Ozempic 2 mg/dose (8 mg/3 mL) subcutaneou s pen injector 09-11 00:00: 00 Yes [id number] A2DM 2 mg WEEKLY 2 mg WEEKLY (route: subcutaneo us) Med Classific ation: Endocrine oxycodone 15 mg tablet 331 00:00: 00 Yes [id number] PAIN 1 tablet 4 TIMES DAILY 1 tablet 4 TIMES DAILY (route: oral) Med Classific ation: Analgesic , Anti-infl ammatory or Antipyret ic furosemide 40 mg tablet 27 00:00: 00 Yes [id number] FLUID 1 tablet TWICE DAILY 1 tablet TWICE DAILY (route: oral) Med Classific ation: Cardiovas cular Therapy Agents albuterol sulfate 0.63 mg/3 mL solution for nebulizatio n 09-30 00:00: 00 Yes [id number] BREATHING 3 mL EVERY 6 HOURS 3 mL EVERY 6 HOURS (route: inhalation ) Med Classific ation: Respirato ry Therapy Agents albuterol sulfate HFA 90 mcg/actuati on aerosol inhaler 09-30 00:00: 00 Yes [id number] LUNGS 2 puff EVERY 4 HOURS 2 puff EVERY 4 HOURS (route: inhalation ) Med Classific ation: Respirato ry Therapy Agents aspirin 81 mg chewable tablet 09-30 00:00: 00 Yes [id number] HEART 1 tablet DAILY 1 tablet DAILY (route: oral) Med Classific ation: Hematolog ical Agents cetirizine 10 mg tablet 09-30 00:00: 00 Yes [id number] ALLERGIES 1 tablet DAILY 1 tablet DAILY (route: oral) Med Classific ation: Respirato ry Therapy Agents diazepam 5 mg tablet 09-30 00:00: 00 Yes [id number] ANXIETY 1 tablet 3 TIMES DAILY 1 tablet 3 TIMES DAILY (route: oral) Med Classific ation: Central Nervous System Agents nitroglycer in 0.4 mg sublingual tablet 09-30 00:00: 00 Yes [id number] HEART Per instruc tions DIRECTED Per instructio ns DIRECTED (route: sublingual ) Med Classific ation: Cardiovas cular Therapy Agents oxygen gas for inhalation 09-30 00:00: 00 Yes [id number] SUPPLEMENTA L OXYGEN 2 Liter DAILY 2 Liter DAILY (route: inhalation ) Med Classific ation: Medical Supplies and Durable Medical Equipment (DME) Vitamin D3 50 mcg (2,000 unit) capsule 09-30 00:00: 00 Yes [id number] SUPPLEMENT 1 capsule DAILY 1 capsule DAILY [...] PHYSICIANS ZHANG RN TO OBSERVE AND ASSESS, STOREKEEPER HELPER/WARD SUPERVISOR TO OBSERVE FOR RISK FOR FALLS AND INSTRUCT IN FALL PREVENTION, HOME SAFETY, MEDICATION MANAGEMENT, INFECTION PREVENTION, AND NUTRITION MANAGEMENT. RN/STOREKEEPER HELPER/WARD SUPERVISOR NURSE MAY PERFORM O2 SATURATION LEVEL ON ADMISSION AND PRN FOR RN TO ASSESS/STOREKEEPER HELPER TO OBSERVE PATIENT, WITH NOTIFICATION TO THE PHYSICIAN IF SATURATION IS 90% IN THE ABSENCE OF MORE SPECIFIC PARAMETERS FROM THE PHYSICIAN. AGENCY MAY PERFORM A RESUMPTION OF CARE VISIT FOLLOWING ANY HOSPITAL ADMISSION. RN/STOREKEEPER HELPER/WARD SUPERVISOR TO MONITOR CO-MORBID CONDITIONS LISTED ON THE PLAN OF CARE AND ANY NEW CONDITIONS THAT PRESENT THEMSELVES DURING THIS EPISODE TO IDENTIFY CHANGES AND INTERVENE TO MINIMIZE COMPLICATIONS. [code = RN TO OBSERVE, ASSESS, EVALUATE, AND DEVELOP AN INDIVIDUALIZED PLAN OF CARE. AGENCY MAY ACCEPT ORDERS FROM CONSULTING PHYSICIANS ZHANG PERALES TO OBSERVE AND ASSESS, STOREKEEPER HELPER/WARD SUPERVISOR TO OBSERVE FOR RISK FOR FALLS AND INSTRUCT IN FALL PREVENTION, HOME SAFETY, MEDICATION MANAGEMENT, INFECTION PREVENTION, AND NUTRITION MANAGEMENT. RN/STOREKEEPER HELPER/WARD SUPERVISOR NURSE MAY PERFORM O2 SATURATION LEVEL ON ADMISSION AND PRN FOR RN TO ASSESS/STOREKEEPER HELPER TO OBSERVE PATIENT, WITH NOTIFICATION TO THE PHYSICIAN IF SATURATION IS 90% IN THE ABSENCE OF MORE SPECIFIC PARAMETERS FROM THE PHYSICIAN. AGENCY MAY PERFORM A RESUMPTION OF CARE VISIT FOLLOWING ANY HOSPITAL ADMISSION. RN/STOREKEEPER HELPER/WARD SUPERVISOR TO MONITOR CO-MORBID CONDITIONS LISTED ON THE PLAN OF CARE AND ANY NEW CONDITIONS THAT PRESENT THEMSELVES DURING THIS EPISODE TO IDENTIFY CHANGES AND INTERVENE TO MINIMIZE COMPLICATIONS.] Future Scheduled Test MEDICATION MANAGEMENT; RN/STOREKEEPER HELPER/WARD SUPERVISOR TO REVIEW MEDICATIONS FOR INTERACTIONS, EFFECTIVENESS OF DRUG THERAPY, AND SIGNS/SYMPTOMS OF ADVERSE REACTIONS. MAY INSTRUCT AND REINFORCE MEDICATION TEACHING RELATED TO THE USE OF MEDICATIONS, DOSAGE, FREQUENCY, PURPOSE, SIDE EFFECTS, AND TO REPORT COMPLICATIONS. [code = MEDICATION MANAGEMENT; RN/STOREKEEPER HELPER/WARD SUPERVISOR TO REVIEW MEDICATIONS FOR INTERACTIONS, EFFECTIVENESS OF DRUG THERAPY, AND SIGNS/SYMPTOMS OF ADVERSE REACTIONS. MAY INSTRUCT AND REINFORCE MEDICATION TEACHING RELATED TO THE USE OF MEDICATIONS, DOSAGE, FREQUENCY, PURPOSE, SIDE EFFECTS, AND TO REPORT COMPLICATIONS.] Future Scheduled Test RESPIRATOR Y SYSTEM MANAGEMENT; RN TO ASSESS AND TEACH, STOREKEEPER HELPER/WARD SUPERVISOR TO OBSERVE AND TEACH RELATED TO ALTERED RESPIRATORY STATUS TO MINIMIZE COMPLICATIONS AND REDUCE HOSPITALIZATION. [code = RESPIRATORY SYSTEM MANAGEMENT; RN TO ASSESS AND TEACH, STOREKEEPER HELPER/WARD SUPERVISOR TO OBSERVE AND TEACH RELATED TO ALTERED RESPIRATORY STATUS TO MINIMIZE COMPLICATIONS AND REDUCE HOSPITALIZATION.] Future Scheduled Test COPD MANAG EMENT; RN TO ASSESS AND TEACH, STOREKEEPER HELPER/WARD SUPERVISOR TO OBSERVE AND TEACH SIGNS/SYMPTOMS OF COPD EXACERBATION AND PROVIDE EARLY INTERVENTIONS TO MINIMIZE RISK OF HOSPITALIZATION. RN/STOREKEEPER HELPER/WARD SUPERVISOR TO INSTRUCT ON SELF-CARE MANAGEMENT INCLUDING BREATHING TECHNIQUES, AIRWAY CLEARANCE, AND PROPER USE OF COPD MEDICATIONS. RN TO ASSESS AND TEACH, STOREKEEPER HELPER/WARD SUPERVISOR TO OBSERVE AND TEACH PATIENT/CAREGIVER ABILITY TO MONITOR AND RECORD VITAL SIGNS INCLUDING PULSE OXIMETRY AND BLOOD PRESSURE. PULSE OXIMETER AND BP MONITOR TO BE PROVIDED IF NEEDED [code = COPD MANAGEMENT; RN TO ASSESS AND TEACH, STOREKEEPER HELPER/WARD SUPERVISOR TO OBSERVE AND TEACH SIGNS/SYMPTOMS OF COPD EXACERBATION AND PROVIDE EARLY INTERVENTIONS TO MINIMIZE RISK OF HOSPITALIZATION. RN/STOREKEEPER HELPER/WARD SUPERVISOR TO INSTRUCT ON SELF-CARE MANAGEMENT INCLUDING BREATHING TECHNIQUES, AIRWAY CLEARANCE, AND PROPER USE OF COPD MEDICATIONS. RN TO ASSESS AND TEACH, STOREKEEPER HELPER/WARD SUPERVISOR TO OBSERVE AND TEACH PATIENT/CAREGIVER ABILITY TO MONITOR AND RECORD VITAL SIGNS INCLUDING PULSE OXIMETRY AND BLOOD PRESSURE. PULSE OXIMETER AND BP MONITOR TO BE PROVIDED IF NEEDED] Future Scheduled Test OXYGEN THE RAPY; RN/STOREKEEPER HELPER/WARD SUPERVISOR TO INSTRUCT ON OXYGEN MANAGEMENT INCLUDING: ADMINISTRATION AT 3 L/MIN VIA CONTINUOUS/PRN FOR CARE OF EQUIPMENT AND SAFETY. [code = OXYGEN THERAPY; RN/STOREKEEPER HELPER/WARD SUPERVISOR TO INSTRUCT ON OXYGEN MANAGEMENT INCLUDING: ADMINISTRATION AT 3 L/MIN VIA CONTINUOUS/PRN FOR CARE OF EQUIPMENT AND SAFETY.] Future Scheduled Test GENITOURIN MAHESH MANAGEMENT; RN TO ASSESS AND TEACH, STOREKEEPER HELPER/WARD SUPERVISOR TO OBSERVE AND TEACH RELATED TO ALTERED GENITOURINARY STATUS TO MINIMIZE COMPLICATIONS AND REDUCE HOSPITALIZATION. [code = GENITOURINARY MANAGEMENT; RN TO ASSESS AND TEACH, STOREKEEPER HELPER/WARD SUPERVISOR TO OBSERVE AND TEACH RELATED TO ALTERED GENITOURINARY STATUS TO MINIMIZE COMPLICATIONS AND REDUCE HOSPITALIZATION.] Future Scheduled Test INDWELLING URINARY CATHETER INSERTION; RN/STOREKEEPER HELPER/WARD SUPERVISOR TO PERFORM INSERTION OF 18 FR INDWELLING CATHETER, INSTILL 30 CC OF STERILE WATER INTO BALLOON, SECURE TUBING WITH APPROPRIATE SECUREMENT DEVICE CHANGE MONTHLY AND PRN FOR LEAKAGE, BLOCKAGE, DISLODGEMENT, OR MALFUNCTION. [code = INDWELLING URINARY CATHETER INSERTION; RN/STOREKEEPER HELPER/WARD SUPERVISOR TO PERFORM INSERTION OF 18 FR INDWELLING CATHETER, INSTILL 30 CC OF STERILE WATER INTO BALLOON, SECURE TUBING WITH APPROPRIATE SECUREMENT DEVICE CHANGE MONTHLY AND PRN FOR LEAKAGE, BLOCKAGE, DISLODGEMENT, OR MALFUNCTION.] Future Scheduled Test INDWELLING URINARY CATHETER MANAGEMENT; RN/STOREKEEPER HELPER/WARD SUPERVISOR TO INSTRUCT PATIENT / CAREGIVER ON INDWELLING URINARY CATHETER MANAGEMENT INCLUDING CARE OF CATHETER, SIGN AND SYMPTOMS OF COMPLICATIONS, PERINEAL CARE, TUBE AND BAG PLACEMENT, PREVENTION OF INFECTION AND SKIN BREAKDOWN. [code = INDWELLING URINARY CATHETER MANAGEMENT; RN/STOREKEEPER HELPER/WARD SUPERVISOR TO INSTRUCT PATIENT / CAREGIVER ON INDWELLING URINARY CATHETER MANAGEMENT INCLUDING CARE OF CATHETER, SIGN AND SYMPTOMS OF COMPLICATIONS, PERINEAL CARE, TUBE AND BAG PLACEMENT, PREVENTION OF INFECTION AND SKIN BREAKDOWN.] Future Scheduled Test PRN VISITS ; NUMBER OF RN/STOREKEEPER HELPER/WARD SUPERVISOR VISITS: 2 RN/STOREKEEPER HELPER/WARD SUPERVISOR TO PERFORM: 2 FOR THE FOLLOWING REASONS: CATHETER OBSERVATION [code = PRN VISITS; NUMBER OF RN/STOREKEEPER HELPER/WARD SUPERVISOR VISITS: 2 RN/STOREKEEPER HELPER/WARD SUPERVISOR TO PERFORM: 2 FOR THE FOLLOWING REASONS: CATHETER OBSERVATION] Future Scheduled Test RN/STOREKEEPER HELPER/WARD SUPERVISOR TO PERFORM/TEACH PATIENT/CAREGIVER WOUND CARE PRESSURE INJURY TO RIGHT HEEL, LEFT AND RIGHT CHEEK OF BUTTOCKS IRRIGATE/CLEANSE WITH WOUND WASH APPLY CALCIUM ALGINATE PLACE BORDER GAUZE MAY APPLY SKIN BARRIER TO PERIWOUND PRN TO PREVENT MACERATION AND PROTECT PERIWOUND CHANGE DRESSING EVERY 2 DAYS AND CAREGIVER FOR DISLODGEMENT AND SOILING AND INBETWEEN AGENCY VISITS [code = RN/STOREKEEPER HELPER/WARD SUPERVISOR TO PERFORM/TEACH PATIENT/CAREGIVER WOUND CARE PRESSURE INJURY [...] HOME AND RECOMMENDED DEBRIDMENT. PT TO SEE TRIMMING MACHINE OPERATOR SARAVANAN. PT HAD NEW WOUNDS TO BODY. [...] End Date/Time Encounter Type Admission Type Attending [facility] Care Facility Care Department Encounter ID Discharge Date Discharge Status Discharge Condition Discharge Reason Percent Goals Met 2025-03-29 00:00:00 2025-05-27 00:00:00 Outpatient [facility] [id number]
--- OUTSIDE RECORDS SUMMARY | 2025-05-26 19:00 | XMS_ITS | Clinical Summary ---
Author Organization Unknown Care Team Providers Care Title Assistant Name Role Phone ZHANG PATEL, ALANA Unavailable Unavailable JODIE PERALES, DENTON Unavailable Unavailable EMMANUEL ATKINSON, MARSHALL Unavailable Unavailable Payers Payer Name Policy Type Policy Number Effective Date Expira tion Date MEDICARE.[place].[facility] [id number] Problems Condition Name Condition Details Condition Category [...] ON SUPPLEMENTAL OXYGEN Active 06-04 00:00: 00 NURSING HOME (CURRENT) USE OF INSULIN Active 06-04 00:00: 00 NURSING HOME (CURRENT) USE OF ANTICOAGULAN TS Active 06-04 [...] 4 mg tablet 09-24 00:00: 00 Yes [id number] MUSCLE 1 tablet 2 TIMES DAILY 1 tablet 2 TIMES DAILY (route: oral) Med Classific ation: Locomotor System Novolog FlexPen U-100 Insulin aspart 100 unit/mL (3 mL) [facility] 09-19 00:00: 00 Yes [id number] Unavailable Per instruc tions BEFORE each meal based ON correction scale Max Daily Per instructio ns BEFORE each meal based ON correction scale Max Daily ([facility] Med Classific ation: Endocrine levothyroxi ne 150 mcg tablet 09-18 00:00: 00 Yes [id number] Unavailable Per instruc tions EVERY DAY FOR 6 DAYS of THE WEEK FOR 1 DAY of THE WEEK Per instructio ns EVERY DAY FOR 6 DAYS of THE WEEK FOR 1 DAY of THE WEEK (route: oral) Med Classific ation: Endocrine pregabalin 100 mg capsule 16 00:00: 00 Yes [id number] PAIN 1 capsule THREE TIMES DAILY 1 capsule THREE TIMES DAILY (route: oral) Med Classific ation: Central Nervous System Agents allopurinol 300 mg tablet -14 00:00: 00 Yes [id number] GOUT 1 tablet DAILY 1 tablet DAILY (route: oral) Med Classific ation: Gout and Hyperuric emia Therapy aripiprazol e 5 mg tablet 09-15 00:00: 00 Yes [id number] DEPRESSION 1 tablet EVERY DAY 1 tablet EVERY DAY (route: oral) Med Classific ation: Central Nervous System Agents methenamine hippurate 1 gram tablet 09-15 00:00: 00 Yes [id number] Unavailable Per instruc tions EVERY DAY Per instructio ns EVERY DAY (route: oral) Med Classific ation: Genitouri nary Therapy metoprolol succinate ER 25 mg tablet,exte nded release 24 hr 09-15 00:00: 00 Yes [id number] BLOOD PRESSURE Per instruc tions TWICE DAILY Per instructio ns TWICE DAILY (route: oral) Med Classific ation: Cardiovas cular Therapy Agents montelukast 10 mg tablet 09-15 00:00: 00 Yes [id number] ALLERGIES Per instruc tions AT BEDTIME Per instructio ns AT BEDTIME (route: oral) Med Classific ation: Respirato ry Therapy Agents pantoprazol e 40 mg tablet,jess yed release 09-15 00:00: 00 Yes [id number] REFLUX 1 tablet EVERY DAY 1 tablet EVERY DAY (route: oral) Med Classific ation: Gastroint estinal Therapy Agents potassium chloride ER 20 mEq tablet,exte nded release(par t/cryst) 09-15 00:00: 00 Yes [id number] SUPPLEMENT 1 tablet EVERY DAY 1 tablet EVERY DAY (route: oral) Med Classific ation: Electroly te Balance-N utritiona l Products ranolazine ER 500 mg tablet,exte nded release,12 hr 09-15 00:00: 00 Yes [id number] CHESTVPAIN 1 tablet EVERY TWELVE HOURS 1 tablet EVERY TWELVE HOURS (route: oral) Med Classific ation: Cardiovas cular Therapy Agents spironolact one 25 mg tablet 09-15 00:00: 00 Yes [id number] FLUID Per instruc tions EVERY DAY Per instructio ns EVERY DAY (route: oral) Med Classific ation: Cardiovas cular Therapy Agents tizanidine 4 mg tablet 09-15 00:00: 00 09-30 00:00 :00 No [id number] Per instruc tions EVERY DAY AT BEDTIME NEEDED Per instructio ns EVERY DAY AT BEDTIME NEEDED (route: oral) Med Classific ation: Locomotor System topiramate 25 mg tablet 14 00:00: 00 Yes [id number] HEADACHE 1 tablet TWICE DAILY 1 tablet TWICE DAILY (route: oral) Med Classific ation: Central Nervous System Agents topiramate 50 mg tablet 14 00:00: 00 Yes [id number] HEADACHE 1 tablet TWICE DAILY 1 tablet TWICE DAILY (route: oral) Med Classific ation: Central Nervous System Agents Xarelto 15 mg tablet 09-15 00:00: 00 Yes [id number] HEART Per instruc tions EVERY Per instructio ns EVERY (route: oral) Med Classific ation: Hematolog ical Agents amoxicillin 500 mg capsule 09-12 00:00: 00 09-30 23:59 :00 No [id number] ANTIBIOTIC 1 capsule THREE TIMES DAILY FOR 7 DAYS 1 capsule THREE TIMES DAILY FOR 7 DAYS (route: oral) Med Classific ation: Anti-Infe ctive Agents Ozempic 2 mg/dose (8 mg/3 mL) subcutaneou s pen injector 09-11 00:00: 00 Yes [id number] A2DM 2 mg WEEKLY 2 mg WEEKLY (route: subcutaneo us) Med Classific ation: Endocrine oxycodone 15 mg tablet 331 00:00: 00 Yes [id number] PAIN 1 tablet 4 TIMES DAILY 1 tablet 4 TIMES DAILY (route: oral) Med Classific ation: Analgesic , Anti-infl ammatory or Antipyret ic furosemide 40 mg tablet 27 00:00: 00 Yes [id number] FLUID 1 tablet TWICE DAILY 1 tablet TWICE DAILY (route: oral) Med Classific ation: Cardiovas cular Therapy Agents albuterol sulfate 0.63 mg/3 mL solution for nebulizatio n 09-30 00:00: 00 Yes [id number] BREATHING 3 mL EVERY 6 HOURS 3 mL EVERY 6 HOURS (route: inhalation ) Med Classific ation: Respirato ry Therapy Agents albuterol sulfate HFA 90 mcg/actuati on aerosol inhaler 09-30 00:00: 00 Yes [id number] LUNGS 2 puff EVERY 4 HOURS 2 puff EVERY 4 HOURS (route: inhalation ) Med Classific ation: Respirato ry Therapy Agents aspirin 81 mg chewable tablet 09-30 00:00: 00 Yes [id number] HEART 1 tablet DAILY 1 tablet DAILY (route: oral) Med Classific ation: Hematolog ical Agents cetirizine 10 mg tablet 09-30 00:00: 00 Yes [id number] ALLERGIES 1 tablet DAILY 1 tablet DAILY (route: oral) Med Classific ation: Respirato ry Therapy Agents diazepam 5 mg tablet 09-30 00:00: 00 Yes [id number] ANXIETY 1 tablet 3 TIMES DAILY 1 tablet 3 TIMES DAILY (route: oral) Med Classific ation: Central Nervous System Agents nitroglycer in 0.4 mg sublingual tablet 09-30 00:00: 00 Yes [id number] HEART Per instruc tions DIRECTED Per instructio ns DIRECTED (route: sublingual ) Med Classific ation: Cardiovas cular Therapy Agents oxygen gas for inhalation 09-30 00:00: 00 Yes [id number] SUPPLEMENTA L OXYGEN 2 Liter DAILY 2 Liter DAILY (route: inhalation ) Med Classific ation: Medical Supplies and Durable Medical Equipment (DME) Vitamin D3 50 mcg (2,000 unit) capsule 09-30 00:00: 00 Yes [id number] SUPPLEMENT 1 capsule DAILY 1 capsule DAILY [...] PHYSICIANS ZHANG RN TO OBSERVE AND ASSESS, GRADUATING MACHINE OPERATOR/EMPLOYEE RELATIONS ASSISTANT TO OBSERVE FOR RISK FOR FALLS AND INSTRUCT IN FALL PREVENTION, HOME SAFETY, MEDICATION MANAGEMENT, INFECTION PREVENTION, AND NUTRITION MANAGEMENT. RN/GRADUATING MACHINE OPERATOR/EMPLOYEE RELATIONS ASSISTANT NURSE MAY PERFORM O2 SATURATION LEVEL ON ADMISSION AND PRN FOR RN TO ASSESS/GRADUATING MACHINE OPERATOR TO OBSERVE PATIENT, WITH NOTIFICATION TO THE PHYSICIAN IF SATURATION IS 90% IN THE ABSENCE OF MORE SPECIFIC PARAMETERS FROM THE PHYSICIAN. AGENCY MAY PERFORM A RESUMPTION OF CARE VISIT FOLLOWING ANY HOSPITAL ADMISSION. RN/GRADUATING MACHINE OPERATOR/EMPLOYEE RELATIONS ASSISTANT TO MONITOR CO-MORBID CONDITIONS LISTED ON THE PLAN OF CARE AND ANY NEW CONDITIONS THAT PRESENT THEMSELVES DURING THIS EPISODE TO IDENTIFY CHANGES AND INTERVENE TO MINIMIZE COMPLICATIONS. [code = RN TO OBSERVE, ASSESS, EVALUATE, AND DEVELOP AN INDIVIDUALIZED PLAN OF CARE. AGENCY MAY ACCEPT ORDERS FROM CONSULTING PHYSICIANS ZHANG PERALES TO OBSERVE AND ASSESS, GRADUATING MACHINE OPERATOR/EMPLOYEE RELATIONS ASSISTANT TO OBSERVE FOR RISK FOR FALLS AND INSTRUCT IN FALL PREVENTION, HOME SAFETY, MEDICATION MANAGEMENT, INFECTION PREVENTION, AND NUTRITION MANAGEMENT. RN/GRADUATING MACHINE OPERATOR/EMPLOYEE RELATIONS ASSISTANT NURSE MAY PERFORM O2 SATURATION LEVEL ON ADMISSION AND PRN FOR RN TO ASSESS/GRADUATING MACHINE OPERATOR TO OBSERVE PATIENT, WITH NOTIFICATION TO THE PHYSICIAN IF SATURATION IS 90% IN THE ABSENCE OF MORE SPECIFIC PARAMETERS FROM THE PHYSICIAN. AGENCY MAY PERFORM A RESUMPTION OF CARE VISIT FOLLOWING ANY HOSPITAL ADMISSION. RN/GRADUATING MACHINE OPERATOR/EMPLOYEE RELATIONS ASSISTANT TO MONITOR CO-MORBID CONDITIONS LISTED ON THE PLAN OF CARE AND ANY NEW CONDITIONS THAT PRESENT THEMSELVES DURING THIS EPISODE TO IDENTIFY CHANGES AND INTERVENE TO MINIMIZE COMPLICATIONS.] Future Scheduled Test MEDICATION MANAGEMENT; RN/GRADUATING MACHINE OPERATOR/EMPLOYEE RELATIONS ASSISTANT TO REVIEW MEDICATIONS FOR INTERACTIONS, EFFECTIVENESS OF DRUG THERAPY, AND SIGNS/SYMPTOMS OF ADVERSE REACTIONS. MAY INSTRUCT AND REINFORCE MEDICATION TEACHING RELATED TO THE USE OF MEDICATIONS, DOSAGE, FREQUENCY, PURPOSE, SIDE EFFECTS, AND TO REPORT COMPLICATIONS. [code = MEDICATION MANAGEMENT; RN/GRADUATING MACHINE OPERATOR/EMPLOYEE RELATIONS ASSISTANT TO REVIEW MEDICATIONS FOR INTERACTIONS, EFFECTIVENESS OF DRUG THERAPY, AND SIGNS/SYMPTOMS OF ADVERSE REACTIONS. MAY INSTRUCT AND REINFORCE MEDICATION TEACHING RELATED TO THE USE OF MEDICATIONS, DOSAGE, FREQUENCY, PURPOSE, SIDE EFFECTS, AND TO REPORT COMPLICATIONS.] Future Scheduled Test RESPIRATOR Y SYSTEM MANAGEMENT; RN TO ASSESS AND TEACH, GRADUATING MACHINE OPERATOR/EMPLOYEE RELATIONS ASSISTANT TO OBSERVE AND TEACH RELATED TO ALTERED RESPIRATORY STATUS TO MINIMIZE COMPLICATIONS AND REDUCE HOSPITALIZATION. [code = RESPIRATORY SYSTEM MANAGEMENT; RN TO ASSESS AND TEACH, GRADUATING MACHINE OPERATOR/EMPLOYEE RELATIONS ASSISTANT TO OBSERVE AND TEACH RELATED TO ALTERED RESPIRATORY STATUS TO MINIMIZE COMPLICATIONS AND REDUCE HOSPITALIZATION.] Future Scheduled Test COPD MANAG EMENT; RN TO ASSESS AND TEACH, GRADUATING MACHINE OPERATOR/EMPLOYEE RELATIONS ASSISTANT TO OBSERVE AND TEACH SIGNS/SYMPTOMS OF COPD EXACERBATION AND PROVIDE EARLY INTERVENTIONS TO MINIMIZE RISK OF HOSPITALIZATION. RN/GRADUATING MACHINE OPERATOR/EMPLOYEE RELATIONS ASSISTANT TO INSTRUCT ON SELF-CARE MANAGEMENT INCLUDING BREATHING TECHNIQUES, AIRWAY CLEARANCE, AND PROPER USE OF COPD MEDICATIONS. RN TO ASSESS AND TEACH, GRADUATING MACHINE OPERATOR/EMPLOYEE RELATIONS ASSISTANT TO OBSERVE AND TEACH PATIENT/CAREGIVER ABILITY TO MONITOR AND RECORD VITAL SIGNS INCLUDING PULSE OXIMETRY AND BLOOD PRESSURE. PULSE OXIMETER AND BP MONITOR TO BE PROVIDED IF NEEDED [code = COPD MANAGEMENT; RN TO ASSESS AND TEACH, GRADUATING MACHINE OPERATOR/EMPLOYEE RELATIONS ASSISTANT TO OBSERVE AND TEACH SIGNS/SYMPTOMS OF COPD EXACERBATION AND PROVIDE EARLY INTERVENTIONS TO MINIMIZE RISK OF HOSPITALIZATION. RN/GRADUATING MACHINE OPERATOR/EMPLOYEE RELATIONS ASSISTANT TO INSTRUCT ON SELF-CARE MANAGEMENT INCLUDING BREATHING TECHNIQUES, AIRWAY CLEARANCE, AND PROPER USE OF COPD MEDICATIONS. RN TO ASSESS AND TEACH, GRADUATING MACHINE OPERATOR/EMPLOYEE RELATIONS ASSISTANT TO OBSERVE AND TEACH PATIENT/CAREGIVER ABILITY TO MONITOR AND RECORD VITAL SIGNS INCLUDING PULSE OXIMETRY AND BLOOD PRESSURE. PULSE OXIMETER AND BP MONITOR TO BE PROVIDED IF NEEDED] Future Scheduled Test OXYGEN THE RAPY; RN/GRADUATING MACHINE OPERATOR/EMPLOYEE RELATIONS ASSISTANT TO INSTRUCT ON OXYGEN MANAGEMENT INCLUDING: ADMINISTRATION AT 3 L/MIN VIA CONTINUOUS/PRN FOR CARE OF EQUIPMENT AND SAFETY. [code = OXYGEN THERAPY; RN/GRADUATING MACHINE OPERATOR/EMPLOYEE RELATIONS ASSISTANT TO INSTRUCT ON OXYGEN MANAGEMENT INCLUDING: ADMINISTRATION AT 3 L/MIN VIA CONTINUOUS/PRN FOR CARE OF EQUIPMENT AND SAFETY.] Future Scheduled Test GENITOURIN MAHESH MANAGEMENT; RN TO ASSESS AND TEACH, GRADUATING MACHINE OPERATOR/EMPLOYEE RELATIONS ASSISTANT TO OBSERVE AND TEACH RELATED TO ALTERED GENITOURINARY STATUS TO MINIMIZE COMPLICATIONS AND REDUCE HOSPITALIZATION. [code = GENITOURINARY MANAGEMENT; RN TO ASSESS AND TEACH, GRADUATING MACHINE OPERATOR/EMPLOYEE RELATIONS ASSISTANT TO OBSERVE AND TEACH RELATED TO ALTERED GENITOURINARY STATUS TO MINIMIZE COMPLICATIONS AND REDUCE HOSPITALIZATION.] Future Scheduled Test INDWELLING URINARY CATHETER INSERTION; RN/GRADUATING MACHINE OPERATOR/EMPLOYEE RELATIONS ASSISTANT TO PERFORM INSERTION OF 18 FR INDWELLING CATHETER, INSTILL 30 CC OF STERILE WATER INTO BALLOON, SECURE TUBING WITH APPROPRIATE SECUREMENT DEVICE CHANGE MONTHLY AND PRN FOR LEAKAGE, BLOCKAGE, DISLODGEMENT, OR MALFUNCTION. [code = INDWELLING URINARY CATHETER INSERTION; RN/GRADUATING MACHINE OPERATOR/EMPLOYEE RELATIONS ASSISTANT TO PERFORM INSERTION OF 18 FR INDWELLING CATHETER, INSTILL 30 CC OF STERILE WATER INTO BALLOON, SECURE TUBING WITH APPROPRIATE SECUREMENT DEVICE CHANGE MONTHLY AND PRN FOR LEAKAGE, BLOCKAGE, DISLODGEMENT, OR MALFUNCTION.] Future Scheduled Test INDWELLING URINARY CATHETER MANAGEMENT; RN/GRADUATING MACHINE OPERATOR/EMPLOYEE RELATIONS ASSISTANT TO INSTRUCT PATIENT / CAREGIVER ON INDWELLING URINARY CATHETER MANAGEMENT INCLUDING CARE OF CATHETER, SIGN AND SYMPTOMS OF COMPLICATIONS, PERINEAL CARE, TUBE AND BAG PLACEMENT, PREVENTION OF INFECTION AND SKIN BREAKDOWN. [code = INDWELLING URINARY CATHETER MANAGEMENT; RN/GRADUATING MACHINE OPERATOR/EMPLOYEE RELATIONS ASSISTANT TO INSTRUCT PATIENT / CAREGIVER ON INDWELLING URINARY CATHETER MANAGEMENT INCLUDING CARE OF CATHETER, SIGN AND SYMPTOMS OF COMPLICATIONS, PERINEAL CARE, TUBE AND BAG PLACEMENT, PREVENTION OF INFECTION AND SKIN BREAKDOWN.] Future Scheduled Test PRN VISITS ; NUMBER OF RN/GRADUATING MACHINE OPERATOR/EMPLOYEE RELATIONS ASSISTANT VISITS: 2 RN/GRADUATING MACHINE OPERATOR/EMPLOYEE RELATIONS ASSISTANT TO PERFORM: 2 FOR THE FOLLOWING REASONS: CATHETER OBSERVATION [code = PRN VISITS; NUMBER OF RN/GRADUATING MACHINE OPERATOR/EMPLOYEE RELATIONS ASSISTANT VISITS: 2 RN/GRADUATING MACHINE OPERATOR/EMPLOYEE RELATIONS ASSISTANT TO PERFORM: 2 FOR THE FOLLOWING REASONS: CATHETER OBSERVATION] Future Scheduled Test RN/GRADUATING MACHINE OPERATOR/EMPLOYEE RELATIONS ASSISTANT TO PERFORM/TEACH PATIENT/CAREGIVER WOUND CARE PRESSURE INJURY TO RIGHT HEEL, LEFT AND RIGHT CHEEK OF BUTTOCKS IRRIGATE/CLEANSE WITH WOUND WASH APPLY CALCIUM ALGINATE PLACE BORDER GAUZE MAY APPLY SKIN BARRIER TO PERIWOUND PRN TO PREVENT MACERATION AND PROTECT PERIWOUND CHANGE DRESSING EVERY 2 DAYS AND CAREGIVER FOR DISLODGEMENT AND SOILING AND INBETWEEN AGENCY VISITS [code = RN/GRADUATING MACHINE OPERATOR/EMPLOYEE RELATIONS ASSISTANT TO PERFORM/TEACH PATIENT/CAREGIVER WOUND CARE PRESSURE INJURY [...] 2025-03-29 00:00:00 2025-05-27 00:00:00 Outpatient DENTON HICKS [facility] [id number] 100.00
== END 2025-05-22 22:19 | disposition home or self-care (01) | DRG 698 ==
LOC: ER 20:47 → ICU 21:36 → 2ND 05-22 08:17 → ICU 05-22 08:17
PROVIDERS: Nurse Practitioner Acute Care; Admitting Provider Student in an Organized Health Care Education/Training Program; Emergency Provider Student in an Organized Health Care Education/Training Program; PCP Family Medicine; Visit Provider Student in an Organized Health Care Education/Training Program
DX: T83.511A Infection and inflammatory reaction due to indwelling urethral catheter, initial encounter (principal); A41.9 Sepsis, unspecified organism; R53.2 Functional quadriplegia; L97.412 Non-pressure chronic ulcer of right heel and midfoot with fat layer exposed; D64.89 Other specified anemias; N39.0 Urinary tract infection, site not specified; Y73.8 Miscellaneous gastroenterology and urology devices associated with adverse incidents, not elsewhere classified; E78.5 Hyperlipidemia, unspecified; I12.9 Hypertensive chronic kidney disease with stage 1 through stage 4 chronic kidney disease, or unspecified chronic kidney disease; E11.621 Type 2 diabetes mellitus with foot ulcer; E66.9 Obesity, unspecified; J44.9 Chronic obstructive pulmonary disease, unspecified; N18.2 Chronic kidney disease, stage 2 (mild); Z66 Do not resuscitate; E03.9 Hypothyroidism, unspecified; E11.22 Type 2 diabetes mellitus with diabetic chronic kidney disease; D63.1 Anemia in chronic kidney disease; I25.10 Atherosclerotic heart disease of native coronary artery without angina pectoris; R68.0 Hypothermia, not associated with low environmental temperature; Z86.711 Personal history of pulmonary embolism; Z79.82 Long term (current) use of aspirin; Z79.85 Long-term (current) use of injectable non-insulin antidiabetic drugs; Z79.899 Other long term (current) drug therapy; Z79.01 Long term (current) use of anticoagulants; Z79.4 Long term (current) use of insulin; Z88.8 Allergy status to other drugs, medicaments and biological substances; Z68.25 Body mass index [BMI] 25.0-25.9, adult
CPT/HCPCS: 36415; 36430; 51702; 70450; 71045; 71275; 73630; 74174; 80053; 81001; 82607; 82728; 82746; 82962; 83540; 83550; 83605; 83690; 83735; 83880; 84100; 84439; 84443; 84484; 85014; 85018; 85025; 85044; 85610; 85730; 86850; 87040; 87081; 87086; 87088; 87186; 93005; 97162; 97165; 99285; J1756; J1938; J2543; J3373; J3375; J7040; J7050; J7120; P9016; Q9967

== ENCOUNTER 2025-05-31 22:05 | Emergency (ER) | payer MEDICARE, OTHER, SELFPAY ==
--- OUTSIDE RECORDS SUMMARY | 2025-05-15 09:40 | XMS_ITS | Encounter Summary ---
Author Organization [facility] Address [address] [place] [address] Care Team Providers Care Gate Technician Name Role Phone Paulo Brody DO Primary Care Provider [phone] Reason for Referral * Consultation (Routine) - Authorized Specialty Diagnoses / Procedures Referred By Mo zamorano Referred To Contact Diagnoses Type 2 diabetes mellitus with diabetic neuropathy, with long-term current use of insulin Elayne Campbell APRN [address] [address] Phone: tel: fax: Referral ID Status Reason Start Date Expiration Date V isits Requested Visits Authorized [id number] Authorized 05/15/2025 11/14/2026 1 1 Reason for Visit * Consultation (Routine) - Closed Specialty Diagnoses / Procedures Referred By Mo zamorano Referred To Contact Diagnoses Type 2 diabetes mellitus with diabetic neuropathy, with long-term current use of insulin Elayne Campbell APRN 2 [facility] [address] [place] [address] Phone: tel: fax: Referral ID Status Reason Start Date Expiration Date Visits Re quested Visits Authorized [id number] Closed 12/19/2024 06/20/2026 1 1 Encounter Details Date Type Department Care Team (Late st Contact Info) Description 05/15/2025 9:40 AM EST Office Visit [facility] Endocrinology [address] [place] [address] Elayne Campbell, COMPUTER HARDWARE DEVELOPER [address] [place] [address] Type 2 diabetes mellitus with [...] Patient confirms they are physically located in [place]? Yes If the patient is not physically located in [place], the provider has confirmed with [employer] [...] blood sugar records: using dexcom 7 with receiver bulk system therefore unable to view over , reports [...] events: denies recent illness, hospital visits -seeing shoe laster next week -history of chronic UTIs (denies [...] care. Electronically signed by: Elayne Campbell APRN [facility] ENDOCRINOLOGY [address] [place]. [address] PHONE [phone] FAX: [phone] documented in this encounter Plan of Treatment Upcoming Encounters Date Type Department Care Team (Late st Contact Info) Description 08/28/2025 9:40 AM EDT Office Visit [facility] Endocrinology [address] [place] [address] Elayne Campbell APRN [address] [place] [address] Scheduled Orders Name Type Priority Associated [...] Associated Diagnoses Orde r Schedule Follow Up [facility] Outpatient Referral Routine Type 2 diabetes [...] documented as of this encounter Care Teams Gate Technician Relationship Specialty Start Date End Date Paulo Brody DO [address] [place] [address] PCP - General 08/01/23 documented as of this encounter
--- OUTSIDE RECORDS SUMMARY | 2025-05-26 19:00 | XMS_ITS | Clinical Summary ---
Author Organization Unknown Care Team Providers Care Associate Professor Of Music Name Role Phone ZHANG PATEL, ALANA Unavailable Unavailable JODIE PERALES, DENTON Unavailable Unavailable EMMANUEL ATKINSON, MARSHALL Unavailable Unavailable Payers Payer Name Policy Type Policy Number Effective Date Expira tion Date MEDICARE.[facility] [id number] Problems Condition Name Condition Details Condition Category [...] ON SUPPLEMENTAL OXYGEN Active 06-04 00:00: 00 RESIDENTIAL (CURRENT) USE OF INSULIN Active 06-04 00:00: 00 RESIDENTIAL (CURRENT) USE OF ANTICOAGULAN TS Active 06-04 [...] 4 mg tablet 09-24 00:00: 00 Yes [id number] MUSCLE 1 tablet 2 TIMES DAILY 1 tablet 2 TIMES DAILY (route: oral) Med Classific ation: Locomotor System Novolog FlexPen U-100 Insulin aspart 100 unit/mL (3 mL) [facility] 09-[facility] 00:00: 00 Yes [id number] Unavailable Per instruc tions BEFORE each meal based ON correction scale Max Daily Per instructio ns BEFORE each meal based ON correction scale Max Daily [facility] Med Classific ation: Endocrine levothyroxi ne 150 mcg tablet 09-18 00:00: 00 Yes [id number] Unavailable Per instruc tions EVERY DAY FOR 6 DAYS of THE WEEK FOR 1 DAY of THE WEEK Per instructio ns EVERY DAY FOR 6 DAYS of THE WEEK FOR 1 DAY of THE WEEK (route: oral) Med Classific ation: Endocrine pregabalin 100 mg capsule 16 00:00: 00 Yes [id number] PAIN 1 capsule THREE TIMES DAILY 1 capsule THREE TIMES DAILY (route: oral) Med Classific ation: Central Nervous System Agents allopurinol 300 mg tablet -14 00:00: 00 Yes [id number] GOUT 1 tablet DAILY 1 tablet DAILY (route: oral) Med Classific ation: Gout and Hyperuric emia Therapy aripiprazol e 5 mg tablet 09-15 00:00: 00 Yes [id number] DEPRESSION 1 tablet EVERY DAY 1 tablet EVERY DAY (route: oral) Med Classific ation: Central Nervous System Agents methenamine hippurate 1 gram tablet 09-15 00:00: 00 Yes [id number] Unavailable Per instruc tions EVERY DAY Per instructio ns EVERY DAY (route: oral) Med Classific ation: Genitouri nary Therapy metoprolol succinate ER 25 mg tablet,exte nded release 24 hr 09-15 00:00: 00 Yes [id number] BLOOD PRESSURE Per instruc tions TWICE DAILY Per instructio ns TWICE DAILY (route: oral) Med Classific ation: Cardiovas cular Therapy Agents montelukast 10 mg tablet 09-15 00:00: 00 Yes [id number] ALLERGIES Per instruc tions AT BEDTIME Per instructio ns AT BEDTIME (route: oral) Med Classific ation: Respirato ry Therapy Agents pantoprazol e 40 mg tablet,jess yed release 09-15 00:00: 00 Yes [id number] REFLUX 1 tablet EVERY DAY 1 tablet EVERY DAY (route: oral) Med Classific ation: Gastroint estinal Therapy Agents potassium chloride ER 20 mEq tablet,exte nded release(par t/cryst) 09-15 00:00: 00 Yes [id number] SUPPLEMENT 1 tablet EVERY DAY 1 tablet EVERY DAY (route: oral) Med Classific ation: Electroly te Balance-N utritiona l Products ranolazine ER 500 mg tablet,exte nded release,12 hr 09-15 00:00: 00 Yes [id number] CHESTVPAIN 1 tablet EVERY TWELVE HOURS 1 tablet EVERY TWELVE HOURS (route: oral) Med Classific ation: Cardiovas cular Therapy Agents spironolact one 25 mg tablet 09-15 00:00: 00 Yes [id number] FLUID Per instruc tions EVERY DAY Per instructio ns EVERY DAY (route: oral) Med Classific ation: Cardiovas cular Therapy Agents tizanidine 4 mg tablet 09-15 00:00: 00 09-30 00:00 :00 No [id number] Per instruc tions EVERY DAY AT BEDTIME NEEDED Per instructio ns EVERY DAY AT BEDTIME NEEDED (route: oral) Med Classific ation: Locomotor System topiramate 25 mg tablet 14 00:00: 00 Yes [id number] HEADACHE 1 tablet TWICE DAILY 1 tablet TWICE DAILY (route: oral) Med Classific ation: Central Nervous System Agents topiramate 50 mg tablet 14 00:00: 00 Yes [id number] HEADACHE 1 tablet TWICE DAILY 1 tablet TWICE DAILY (route: oral) Med Classific ation: Central Nervous System Agents Xarelto 15 mg tablet 09-15 00:00: 00 Yes [id number] HEART Per instruc tions EVERY Per instructio ns EVERY (route: oral) Med Classific ation: Hematolog ical Agents amoxicillin 500 mg capsule 09-12 00:00: 00 09-30 23:59 :00 No [id number] ANTIBIOTIC 1 capsule THREE TIMES DAILY FOR 7 DAYS 1 capsule THREE TIMES DAILY FOR 7 DAYS (route: oral) Med Classific ation: Anti-Infe ctive Agents Ozempic 2 mg/dose (8 mg/3 mL) subcutaneou s pen injector 09-11 00:00: 00 Yes [id number] A2DM 2 mg WEEKLY 2 mg WEEKLY (route: subcutaneo us) Med Classific ation: Endocrine oxycodone 15 mg tablet 331 00:00: 00 Yes [id number] PAIN 1 tablet 4 TIMES DAILY 1 tablet 4 TIMES DAILY (route: oral) Med Classific ation: Analgesic , Anti-infl ammatory or Antipyret ic furosemide 40 mg tablet 27 00:00: 00 Yes [id number] FLUID 1 tablet TWICE DAILY 1 tablet TWICE DAILY (route: oral) Med Classific ation: Cardiovas cular Therapy Agents albuterol sulfate 0.63 mg/3 mL solution for nebulizatio n 09-30 00:00: 00 Yes [id number] BREATHING 3 mL EVERY 6 HOURS 3 mL EVERY 6 HOURS (route: inhalation ) Med Classific ation: Respirato ry Therapy Agents albuterol sulfate HFA 90 mcg/actuati on aerosol inhaler 09-30 00:00: 00 Yes [id number] LUNGS 2 puff EVERY 4 HOURS 2 puff EVERY 4 HOURS (route: inhalation ) Med Classific ation: Respirato ry Therapy Agents aspirin 81 mg chewable tablet 09-30 00:00: 00 Yes [id number] HEART 1 tablet DAILY 1 tablet DAILY (route: oral) Med Classific ation: Hematolog ical Agents cetirizine 10 mg tablet 09-30 00:00: 00 Yes [id number] ALLERGIES 1 tablet DAILY 1 tablet DAILY (route: oral) Med Classific ation: Respirato ry Therapy Agents diazepam 5 mg tablet 09-30 00:00: 00 Yes [id number] ANXIETY 1 tablet 3 TIMES DAILY 1 tablet 3 TIMES DAILY (route: oral) Med Classific ation: Central Nervous System Agents nitroglycer in 0.4 mg sublingual tablet 09-30 00:00: 00 Yes [id number] HEART Per instruc tions DIRECTED Per instructio ns DIRECTED (route: sublingual ) Med Classific ation: Cardiovas cular Therapy Agents oxygen gas for inhalation 09-30 00:00: 00 Yes [id number] SUPPLEMENTA L OXYGEN 2 Liter DAILY 2 Liter DAILY (route: inhalation ) Med Classific ation: Medical Supplies and Durable Medical Equipment (DME) Vitamin D3 50 mcg (2,000 unit) capsule 09-30 00:00: 00 Yes [id number] SUPPLEMENT 1 capsule DAILY 1 capsule DAILY (route: oral) Med Classific ation: Electroly te Balance-N utritiona l Products Vital Signs Vital Name Observation Time Observation Value Commen ts Temperature 2025-05-27 11:25:00.000 95.1 [degF] Temperature 2025-05-21 13:22:00.000 97.9 [degF] Temperature 2025-05-18 19:13:00.000 96.9 [degF] Temperature 2025-05-14 [...] 97.9 [degF] Temperature 2025-03-30 12:22:00.000 97.9 [degF] Height 2025-05-27 10:41:22.000 68 [in_us] Pulse 2025-05-27 11:25:00.000 86 /min Pulse 2025-05-21 13:22:00.000 63 /min Pulse 2025-05-18 19:13:00.000 76 /min Pulse 2025-05-14 [...] 2025-03-30 12:22:00.000 93 /min O2 Saturation (%) 2025-05-27 11:25:00.000 98 % O2 Saturation (%) 2025-05-21 13:22:00.000 97 % O2 Saturation (%) 2025-05-18 19:13:00.000 97 % [...] Saturation (%) 2025-03-30 12:22:00.000 98 % Respirations 2025-05-27 11:25:00.000 18 /min Respirations 2025-05-21 13:22:00.000 16 /min Respirations 2025-05-18 19:13:00.000 18 /min Respirations 2025-05-14 [...] Respirations 2025-03-30 12:22:00.000 18 /min Weight (lbs) 2025-05-27 10:41:31.000 Weight (lbs) 2025-05-18 19:13:00.000 Weight (lbs) 2025-05-08 13:33:00.000 Weight (lbs) 2025-05-06 13:43:00.000 Systolic Blood Pressure 2025-05-27 11:25:00.000 110 mm [Hg] Systolic Blood Pressure 2025-05-21 13:22:00.000 115 mm [Hg] Systolic Blood Pressure 2025-05-18 19:13:00.000 115 mm [...] 12:22:00.000 128 mm [Hg] Diastolic Blood Pressure 2025-05-27 11:25:00.000 80 mm [Hg] Diastolic Blood Pressure 2025-05-21 13:22:00.000 70 mm [Hg] Diastolic Blood Pressure 2025-05-18 19:13:00.000 [...] AGENCY MAY ACCEPT ORDERS FROM CONSULTING PHYSICIANS TOADVINE RN TO OBSERVE AND ASSESS, CLEANER GREASER/DRY GOODS INSPECTOR TO OBSERVE FOR RISK FOR FALLS AND INSTRUCT IN FALL PREVENTION, HOME SAFETY, MEDICATION MANAGEMENT, INFECTION PREVENTION, AND NUTRITION MANAGEMENT. RN/CLEANER GREASER/DRY GOODS INSPECTOR NURSE MAY PERFORM O2 SATURATION LEVEL ON ADMISSION AND PRN FOR RN TO ASSESS/CLEANER GREASER TO OBSERVE PATIENT, WITH NOTIFICATION TO THE PHYSICIAN IF SATURATION IS 90% IN THE ABSENCE OF MORE SPECIFIC PARAMETERS FROM THE PHYSICIAN. AGENCY MAY PERFORM A RESUMPTION OF CARE VISIT FOLLOWING ANY HOSPITAL ADMISSION. RN/CLEANER GREASER/DRY GOODS INSPECTOR TO MONITOR CO-MORBID CONDITIONS LISTED ON THE PLAN OF CARE AND ANY NEW CONDITIONS THAT PRESENT THEMSELVES DURING THIS EPISODE TO IDENTIFY CHANGES AND INTERVENE TO MINIMIZE COMPLICATIONS. [code = RN TO OBSERVE, ASSESS, EVALUATE, AND DEVELOP AN INDIVIDUALIZED PLAN OF CARE. AGENCY MAY ACCEPT ORDERS FROM CONSULTING PHYSICIANS ZHANG RN TO OBSERVE AND ASSESS, CLEANER GREASER/DRY GOODS INSPECTOR TO OBSERVE FOR RISK FOR FALLS AND INSTRUCT IN FALL PREVENTION, HOME SAFETY, MEDICATION MANAGEMENT, INFECTION PREVENTION, AND NUTRITION MANAGEMENT. RN/CLEANER GREASER/DRY GOODS INSPECTOR NURSE MAY PERFORM O2 SATURATION LEVEL ON ADMISSION AND PRN FOR RN TO ASSESS/CLEANER GREASER TO OBSERVE PATIENT, WITH NOTIFICATION TO THE PHYSICIAN IF SATURATION IS 90% IN THE ABSENCE OF MORE SPECIFIC PARAMETERS FROM THE PHYSICIAN. AGENCY MAY PERFORM A RESUMPTION OF CARE VISIT FOLLOWING ANY HOSPITAL ADMISSION. RN/CLEANER GREASER/DRY GOODS INSPECTOR TO MONITOR CO-MORBID CONDITIONS LISTED ON THE PLAN OF CARE AND ANY NEW CONDITIONS THAT PRESENT THEMSELVES DURING THIS EPISODE TO IDENTIFY CHANGES AND INTERVENE TO MINIMIZE COMPLICATIONS.] Future Scheduled Test MEDICATION MANAGEMENT; RN/CLEANER GREASER/DRY GOODS INSPECTOR TO REVIEW MEDICATIONS FOR INTERACTIONS, EFFECTIVENESS OF DRUG THERAPY, AND SIGNS/SYMPTOMS OF ADVERSE REACTIONS. MAY INSTRUCT AND REINFORCE MEDICATION TEACHING RELATED TO THE USE OF MEDICATIONS, DOSAGE, FREQUENCY, PURPOSE, SIDE EFFECTS, AND TO REPORT COMPLICATIONS. [code = MEDICATION MANAGEMENT; RN/CLEANER GREASER/DRY GOODS INSPECTOR TO REVIEW MEDICATIONS FOR INTERACTIONS, EFFECTIVENESS OF DRUG THERAPY, AND SIGNS/SYMPTOMS OF ADVERSE REACTIONS. MAY INSTRUCT AND REINFORCE MEDICATION TEACHING RELATED TO THE USE OF MEDICATIONS, DOSAGE, FREQUENCY, PURPOSE, SIDE EFFECTS, AND TO REPORT COMPLICATIONS.] Future Scheduled Test RESPIRATOR Y SYSTEM MANAGEMENT; RN TO ASSESS AND TEACH, CLEANER GREASER/DRY GOODS INSPECTOR TO OBSERVE AND TEACH RELATED TO ALTERED RESPIRATORY STATUS TO MINIMIZE COMPLICATIONS AND REDUCE HOSPITALIZATION. [code = RESPIRATORY SYSTEM MANAGEMENT; RN TO ASSESS AND TEACH, CLEANER GREASER/DRY GOODS INSPECTOR TO OBSERVE AND TEACH RELATED TO ALTERED RESPIRATORY STATUS TO MINIMIZE COMPLICATIONS AND REDUCE HOSPITALIZATION.] Future Scheduled Test COPD MANAG EMENT; RN TO ASSESS AND TEACH, CLEANER GREASER/DRY GOODS INSPECTOR TO OBSERVE AND TEACH SIGNS/SYMPTOMS OF COPD EXACERBATION AND PROVIDE EARLY INTERVENTIONS TO MINIMIZE RISK OF HOSPITALIZATION. RN/CLEANER GREASER/DRY GOODS INSPECTOR TO INSTRUCT ON SELF-CARE MANAGEMENT INCLUDING BREATHING TECHNIQUES, AIRWAY CLEARANCE, AND PROPER USE OF COPD MEDICATIONS. RN TO ASSESS AND TEACH, CLEANER GREASER/DRY GOODS INSPECTOR TO OBSERVE AND TEACH PATIENT/CAREGIVER ABILITY TO MONITOR AND RECORD VITAL SIGNS INCLUDING PULSE OXIMETRY AND BLOOD PRESSURE. PULSE OXIMETER AND BP MONITOR TO BE PROVIDED IF NEEDED [code = COPD MANAGEMENT; RN TO ASSESS AND TEACH, CLEANER GREASER/DRY GOODS INSPECTOR TO OBSERVE AND TEACH SIGNS/SYMPTOMS OF COPD EXACERBATION AND PROVIDE EARLY INTERVENTIONS TO MINIMIZE RISK OF HOSPITALIZATION. RN/CLEANER GREASER/DRY GOODS INSPECTOR TO INSTRUCT ON SELF-CARE MANAGEMENT INCLUDING BREATHING TECHNIQUES, AIRWAY CLEARANCE, AND PROPER USE OF COPD MEDICATIONS. RN TO ASSESS AND TEACH, CLEANER GREASER/DRY GOODS INSPECTOR TO OBSERVE AND TEACH PATIENT/CAREGIVER ABILITY TO MONITOR AND RECORD VITAL SIGNS INCLUDING PULSE OXIMETRY AND BLOOD PRESSURE. PULSE OXIMETER AND BP MONITOR TO BE PROVIDED IF NEEDED] Future Scheduled Test OXYGEN THE RAPY; RN/CLEANER GREASER/DRY GOODS INSPECTOR TO INSTRUCT ON OXYGEN MANAGEMENT INCLUDING: ADMINISTRATION AT 3 L/MIN VIA CONTINUOUS/PRN FOR CARE OF EQUIPMENT AND SAFETY. [code = OXYGEN THERAPY; RN/CLEANER GREASER/DRY GOODS INSPECTOR TO INSTRUCT ON OXYGEN MANAGEMENT INCLUDING: ADMINISTRATION AT 3 L/MIN VIA CONTINUOUS/PRN FOR CARE OF EQUIPMENT AND SAFETY.] Future Scheduled Test GENITOURIN MAHESH MANAGEMENT; RN TO ASSESS AND TEACH, CLEANER GREASER/DRY GOODS INSPECTOR TO OBSERVE AND TEACH RELATED TO ALTERED GENITOURINARY STATUS TO MINIMIZE COMPLICATIONS AND REDUCE HOSPITALIZATION. [code = GENITOURINARY MANAGEMENT; RN TO ASSESS AND TEACH, CLEANER GREASER/DRY GOODS INSPECTOR TO OBSERVE AND TEACH RELATED TO ALTERED GENITOURINARY STATUS TO MINIMIZE COMPLICATIONS AND REDUCE HOSPITALIZATION.] Future Scheduled Test INDWELLING URINARY CATHETER INSERTION; RN/CLEANER GREASER/DRY GOODS INSPECTOR TO PERFORM INSERTION OF 18 FR INDWELLING CATHETER, INSTILL 30 CC OF STERILE WATER INTO BALLOON, SECURE TUBING WITH APPROPRIATE SECUREMENT DEVICE CHANGE MONTHLY AND PRN FOR LEAKAGE, BLOCKAGE, DISLODGEMENT, OR MALFUNCTION. [code = INDWELLING URINARY CATHETER INSERTION; RN/CLEANER GREASER/DRY GOODS INSPECTOR TO PERFORM INSERTION OF 18 FR INDWELLING CATHETER, INSTILL 30 CC OF STERILE WATER INTO BALLOON, SECURE TUBING WITH APPROPRIATE SECUREMENT DEVICE CHANGE MONTHLY AND PRN FOR LEAKAGE, BLOCKAGE, DISLODGEMENT, OR MALFUNCTION.] Future Scheduled Test INDWELLING URINARY CATHETER MANAGEMENT; RN/CLEANER GREASER/DRY GOODS INSPECTOR TO INSTRUCT PATIENT / CAREGIVER ON INDWELLING URINARY CATHETER MANAGEMENT INCLUDING CARE OF CATHETER, SIGN AND SYMPTOMS OF COMPLICATIONS, PERINEAL CARE, TUBE AND BAG PLACEMENT, PREVENTION OF INFECTION AND SKIN BREAKDOWN. [code = INDWELLING URINARY CATHETER MANAGEMENT; RN/CLEANER GREASER/DRY GOODS INSPECTOR TO INSTRUCT PATIENT / CAREGIVER ON INDWELLING URINARY CATHETER MANAGEMENT INCLUDING CARE OF CATHETER, SIGN AND SYMPTOMS OF COMPLICATIONS, PERINEAL CARE, TUBE AND BAG PLACEMENT, PREVENTION OF INFECTION AND SKIN BREAKDOWN.] Future Scheduled Test PRN VISITS ; NUMBER OF RN/CLEANER GREASER/DRY GOODS INSPECTOR VISITS: 2 RN/CLEANER GREASER/DRY GOODS INSPECTOR TO PERFORM: 2 FOR THE FOLLOWING REASONS: CATHETER OBSERVATION [code = PRN VISITS; NUMBER OF RN/CLEANER GREASER/DRY GOODS INSPECTOR VISITS: 2 RN/CLEANER GREASER/DRY GOODS INSPECTOR TO PERFORM: 2 FOR THE FOLLOWING REASONS: CATHETER OBSERVATION] Future Scheduled Test RN/CLEANER GREASER/DRY GOODS INSPECTOR TO PERFORM/TEACH PATIENT/CAREGIVER WOUND CARE PRESSURE INJURY TO RIGHT HEEL, LEFT AND RIGHT CHEEK OF BUTTOCKS IRRIGATE/CLEANSE WITH WOUND WASH APPLY CALCIUM ALGINATE PLACE BORDER GAUZE MAY APPLY SKIN BARRIER TO PERIWOUND PRN TO PREVENT MACERATION AND PROTECT PERIWOUND CHANGE DRESSING EVERY 2 DAYS AND CAREGIVER FOR DISLODGEMENT AND SOILING AND INBETWEEN AGENCY VISITS [code = RN/CLEANER GREASER/DRY GOODS INSPECTOR TO PERFORM/TEACH PATIENT/CAREGIVER WOUND CARE PRESSURE INJURY TO RIGHT HEEL, LEFT AND RIGHT CHEEK OF BUTTOCKS IRRIGATE/CLEANSE WITH WOUND WASH APPLY CALCIUM ALGINATE PLACE BORDER GAUZE MAY APPLY SKIN BARRIER TO PERIWOUND PRN TO PREVENT MACERATION AND PROTECT PERIWOUND CHANGE DRESSING EVERY 2 DAYS AND CAREGIVER FOR DISLODGEMENT AND SOILING AND INBETWEEN AGENCY VISITS] Goal Patient Goal - DONT GET UTI Goal 2024-11-26 Patient Goal - DONT GET UTI Goal 2025-01-27 Patient Goal - DONT GET UTI Goal 2025-03-24 Patient Goal - DONT GET UTI Goal 2025-05-27 Patient Goal - DONT GET UTI Goal [...] Encounter Type Admission Type Attending Clinicians Care [facility] Care Department Encounter ID Discharge Date Discharge Status Discharge Condition Discharge Reason Percent Goals Met 2025-03-29 00:00:00 2025-05-27 00:00:00 Outpatient BONNIERTIFIC D[facility]ON [facility] [id number]
--- OUTSIDE RECORDS SUMMARY | 2025-05-31 22:15 | XMS_ITS | Encounter Summary ---
Author Organization Healthcare Address [address] [place] [address] Care Team Providers Care Keg Varnisher Name Role Phone Paulo Brody Primary Care Provider [phone] Encounter Details Date Type Department Care Team (Late st Contact Info) Description 05/15/2025 Telephone [facility] Endocrinology [address] [place] [address] Elayne Campbell, TAN ROOM SUPERVISOR [address] [facility] [address] [place] [address] Social History Tobacco Use Types [...] 9:40 AM EDT Office Visit Monserrat M[facility] Endocrinology [address] [place] [phone] Elayne Campbell APRN [address] [facility] [address] [place] [phone] documented as of this encounter Visit Diagnoses Not on filedocumented in this encounter Additional Health Concerns Assessment Noted Time A fall risk assessment has been complete d for the patient 11/27/2023 3:20 PM EDT A Body Mass Index follow-up plan has been documented for the patient 05/15/2025 10:09 AM EST documented as of this encounter Care Teams Keg Varnisher Relationship Specialty Start Date End Date Paulo Brody DO [address] [place] [id number] PCP - General 08/01/23 documented as of this encounter
--- OUTSIDE RECORDS SUMMARY | 2025-05-31 22:15 | XMS_ITS | Encounter Summary ---
Author Organization [employer] ([place], [place], [place], [place], [place]) Address [address] [place] [address] Care Team Providers Care Marine Mechanic Name Role Phone Unavailable Primary Care Provider Unavailabl e Encounter Details Date Type Department Care Team (Late st Contact Info) Description 12/31/2024 Lab Requisition [facility] Lab [address] [place] [phone] Social History Tobacco Use Types Packs/Day [...] Do you speak a language other than Sammarinese at [facility]? No 09/22/2023 Do you want help [...]
--- OUTSIDE RECORDS SUMMARY | 2025-05-31 22:15 | XMS_ITS | Encounter Summary ---
Author Organization [facility] ([place], [place], [place], [place], [place]) Address [address] [place] [address] Care Team Providers Care Wax Machine Operator Name Role Phone Unavailable Primary Care Provider Unavailabl e Encounter Details Date Type Department Care Team (Late st Contact Info) Description 12/31/2024 Lab Requisition [facility] Lab [address] [place] [address] Elayne Campbell, ABNER [address] [place] [address] Social History Tobacco Use Types [...] Do you speak a language other than Turkmen at [facility]? No 09/22/2023 Do you want help [...] - 3.740 uIU/mL 12/31/2024 5:33 PM EDT [facility] Blood 12/31/2024 10:3 1 AM EDT 12/31/2024 5:02 PM EDT Elayne Campbell GAS BLENDER LAB BLOOD ORDERABLES Final Re sult Performing Organization Address City/[facility]/ZIP Co de Phone Number [facility] [address] [place] [address], [facility] [phone] * T4 (12/31/2024 10:31 AM EDT) T4, Total 13.3 4.7 - 13.3 ug/dL 12/31/2024 5:33 PM EDT [facility] Blood 12/31/2024 10:3 1 AM EDT 12/31/2024 5:02 PM EDT Elayne Campbell GAS BLENDER LAB BLOOD ORDERABLES Final Re sult Performing Organization Address [facility] de Phone Number [facility] [address] [place] [address] * Hemoglobin A1c (12/31/2024 10:31 AM EDT) Hemoglobin A1C 5.4 % 12/31/2024 5:39 PM EDT [facility] Comment: Hemoglobin A1C levels are related to mean glucose during the preceding 2-3 months. Less than 7% demonstrates glycemic control in diabetic patients. Hemoglobin AlC % Suggested Diagnosis > or = 6.5 Diabetic 5.7 - 6.4 Prediabetic <5.7 Non-diabetic eAVG Glucose 108.28 mg/dL 12/31/2024 5:39 PM EDT [facility] Blood 12/31/2024 10:3 1 AM EDT 12/31/2024 5:02 PM EDT Result [facility] Elayne Campbell GAS BLENDER LAB BLOOD ORDERABLES Final Re sult Performing Organization Address City/[facility] Co de Phone Number [facility] [address] [place] [address], [facility] [phone] documented in this encounter Visit Diagnoses Not on filedocumented in this encounter Additional Health Concerns Infection Onset Date Last Indicated Resolved Time MDR E.coli (C) Comment:ESBL/MDR 09/26/2023 09/26/2023 documented as of this encounter
--- OUTSIDE RECORDS SUMMARY | 2025-05-31 22:15 | XMS_ITS | Encounter Summary ---
Author Organization [facility] Address [address] [place] [address] Care Team Providers Care Station Mechanic Name Role Phone Paulo Brody Primary Care Provider [phone] Reason for Visit * Reason Onset Date Comments HCN - Patient Message 05/21/2025 Encounter Details Date Type Department Care Team (Late st Contact Info) Description 05/21/2025 Telephone [facility] Endocrinology [address] [place] [address] Elayne Campbell, AUTOMOTIVE TEACHER [address] [facility] [address] [place] [address] HCN - Patient Message Social [...] encounter Miscellaneous Notes * Telephone Encounter - Melissa Harley - 05/29/2025 3:21 PM EST Called Elayne back who stated to have her draw blood work she needs a verbal from provider or charge nurse. Asked what labs were possibly drawn at recent Hospital stay and she stated will try and find out and call back on Sunday06/01/2025 with an update. * Telephone Encounter - Judy Pearson - 05/27/2025 11:48 AM EST Status Update Call #2 2nd call regarding the status of the initial request. Elayne calling from patients home health patient is out of the hospital back home and stated if labs need to be drawn [facility]. Best contact number: Other: [phone] Optimal time of day to reach caller: ANYTIME Additional comments/information from caller: Note: Please do not reply to this message. Follow-up communication and further actions as a result of this message need to be communicated with the patient directly, if the patient is not active onMyChart. If the patient is active on MyChart, they will receive notification of the communication/outcome via [employer]. * Telephone Encounter - Naz Willingham - [...] draw the order please fax to # [phone] Best contact number: Other: [phone] Optimal time of day to reach caller: ANYTIME Additional comments/information from caller: None Note: Please do not reply to this message. Follow-up communication and further actions as a result of this message need to be communicated with the patient directly, if the patient is not active onMyChart. If the patient is active on MyChart, they will receive notification of the communication/outcome via MyChart. documented in this encounter Plan of Treatment Upcoming Encounters Date Type Department Care Team (Late st Contact Info) Description 08/28/2025 9:40 AM EDT Office Visit [facility]errat Carrera Endocrinology [address] [place] [address] Elayne Campbell, AUTOMOTIVE TEACHER [address] [facility] [address] [place] [address] documented as of this encounter Visit Diagnoses Not on filedocumented in this encounter Additional Health Concerns Assessment Noted Time A fall risk assessment has been complete d for the patient 11/27/2023 3:20 PM EDT A Body Mass Index follow-up plan has been documented for the patient 05/15/2025 10:09 AM EST documented as of this encounter Care Teams Station Mechanic Relationship Specialty Start Date End Date Paulo Brody DO [address] [place] [id number] PCP - General 08/01/23 documented as of this encounter
--- OUTSIDE RECORDS SUMMARY | 2025-05-31 22:15 | XMS_ITS | Clinical Summary ---
Author Organization [employer] ([place], [place], [place], [place], [place]) Address [address] [place] [address] Care Team Providers Care It Risk Analyst Name Role Phone Unavailable Primary Care Provider [...] Department Care Team Description 05/21/2025 Lab Requisition [facility] [address] [place] [address] Clifton Parr MD 05/14/2025 Lab Requisition [facility] [address] [place] [address] Clifton Parr MD Urinary tract infection, site not specified 05/14/2025 Travel 04/03/2025 Lab Requisition [facility] [address] [place] [address] Clifton Parr MD from Last 3 Months [...] than Citizen Of [place] at [facility]? No 09/22/2023 Do you want help [...] Procedure Name Priority Date/Time Associated Diagnosis Comments [facility] CBC SCAN Routine 05/21/2025 3:30 [...] Estimate Adequate Adequate 05/21/2025 4:03 PM EST [facility] RBC Morphology abnormal(A) Normal 4:03 PM [facility] Anisocytosis 2+ 05/21/2025 4:03 PM [facility] Hypochromia 2+ 05/21/2025 4:03 PM [facility] Microcytes 3+ 05/21/2025 4:03 PM [facility] Blood 05/21/2025 3:30 PM EST 05/21/2025 3:34 PM EST us Clifton Parr MD LAB BLOOD ORDERABLES Final R esult [facility] [address] [place], [place] [address] [phone] * (ABNORMAL) CBC - Hemogram (SJ-BKR) (05/21/2025 3:30 PM EST) WBC 5.0 4.8 - 10.8 K/ L 05/21/2025 4:02 PM [facility] RBC 2.79(L) 3.80 - 5.20 M/ L 05/21/2025 4:02 PM [facility] Hemoglobin 4.7(LL) 12.8 - 17.4 GM/DL 05/21/2025 4:02 PM [facility] Hematocrit 19.0(L) 39.0 - 51.0 % 05/21/2025 4:02 PM [facility] MCV 68(L) 81 - 101 fL 05/21/2025 4:02 PM [facility] MCH <20.0(L) 27.0 - 34.0 pg 05/21/2025 4:02 PM [facility] MCHC <28.0(L) 32.0 - 36.0 GM/DL 05/21/2025 4:02 PM [facility] RDW 24.7(H) 11.5 - 14.5 % 05/21/2025 4:02 PM [facility] Platelets 342 150 - 400 K/CU MM 05/21/2025 4:02 PM [facility] MPV 10.2 9.4 - 12.4 fL 05/21/2025 4:02 PM [facility] Blood 05/21/2025 3:30 PM EST 05/21/2025 3:34 PM EST us Clifton Parr MD LAB BLOOD ORDERABLES Final R esult [facility] [address] [place] [address], [facility] [phone] * (ABNORMAL) Urinalysis, Reflex Microscopic and Culture If Indicated (05/14/2025 2:30 AM EST) Color, UA Straw 05/14/2025 4:31 PM [facility] Clarity, UA Clear 05/14/2025 4:31 PM [facility] Specific [place], UA <=1.005 1.002 - 1.030 05/14/2025 4:31 PM [facility] pH, UA 7.0 5.0 - 9.0 05/14/2025 4:31 PM [facility] Leukocytes, UA 3+(A) Negative 05/14/2025 4:31 PM [facility] Nitrite, UA Negative Negative 05/14/2025 4:31 PM [facility] Protein, UA Negative Negative 05/14/2025 4:31 PM [facility] Glucose, UA Negative Negative 05/14/2025 4:31 PM [facility] Ketones, UA Negative Negative 05/14/2025 4:31 PM [facility] Bilirubin, UA Negative Negative 05/14/2025 4:31 PM [facility] Blood, UA Negative Negative 05/14/2025 4:31 PM [facility] Urobilinogen, UA 0.2 mg/dL Normal 05/14/2025 4:31 PM [facility] Specimen Source random 05/14/2025 4:31 PM EST [facility] Urine 05/14/2025 2:30 AM EST 05/14/2025 4:24 PM EST us Clifton Parr MD URINE ORDERABLES Final Resul t Performing Organization Address [facility] Co de Phone Number [facility] [address] [place] [address] * (ABNORMAL) Urinalysis Microscopic Only (05/14/2025 2:30 AM EST) WBC, UA 5-10(A) None Seen, Occasional , 0-5 /HPF 05/14/2025 4:51 PM EST [facility] RBC, UA 0-5(A) None Seen, Rare /HPF 05/14/2025 4:51 PM EST [facility] Bacteria, UA 2+(A) None Seen 05/14/2025 4:51 PM EST [facility] SQUAMOUS EPITHELIAL 0-5(A) None Seen, Rare /HPF 05/14/2025 4:51 PM EST [facility] Urine 05/14/2025 2:30 AM EST 05/14/2025 4:24 PM EST us Clifton Parr MD URINE ORDERABLES Final Resul t Performing Organization Address [facility] Co de Phone Number [facility] [address] [place] [address] * Stool Culture (04/03/2025 8:30 AM EDT) Result No Salmonella, Shigella, Campylobacter , E.coli: 0157 screen negative. Normal enteric asaf isolated 04/06/2025 7:55 AM EST [facility] Feces FECES / Unknown 04/03/2025 8 :30 AM EDT 04/03/2025 11:54 AM EDT us Clifton Parr MD MICROBIOLOGY - GENERAL ORDER NANI Final Result Performing Organization Address City/[facility]/ZIP Co de Phone Number [facility] [address] [place] [address], [facility] [phone] * C Difficle (04/03/2025 8:30 AM EDT) CDIFF RESULT Negative Negative 04/03/2025 3:43 PM EDT [facility] C. Difficile Ribotype 027 Presumptive Negative Presumptive Negative 04/03/2025 3:43 PM EDT [facility] Stool 04/03/2025 8:30 AM EDT 04/03/2025 11:54 AM EDT Narrative [facility] - 04/03/2025 3:43 PM EDT [...] ORDER NANI Final Result Performing Organization Address City/[facility]/ZIP Co de Phone Number [facility] [address] [place] [address], [facility] [phone] * (ABNORMAL) Wound Culture + Gram Stain (04/03/2025 8:30 AM EDT) Result Heavy Growth Staphylococcus aureus(A) 04/07/2025 7:36 AM EST [facility] Result Moderate Growth Klebsiella aerogenes(A) 04/07/2025 7:36 AM EST [facility] Result Heavy Growth Coagulase negative Staphylococcus(A) 04/07/2025 7:36 AM EST [facility] Result Heavy Growth Corynebacterium species(A) 04/07/2025 7:36 AM EST [facility] Gram Stain Result Few WBCs 04/07/2025 7:36 AM EST [facility] Gram Stain Result Many gram positive cocci in pairs and clusters 04/07/2025 7:36 AM EST [facility] Gram Stain Result Rare gram positive rods 04/07/2025 7:36 AM EST [facility] Wound HEEL STRUCTURE / Unknown 04/03/2025 8:30 AM EDT 04/03/2025 11:54 AM EDT Narrative [facility] - 04/07/2025 7:36 AM EST [...] MICROBIOLOGY - GENERAL ORDER NANI Final Result [facility] [address] [place] [address], [facility] [phone] [facility] [address] [place] [address], [facility] [phone] from Last 3 Months Additional Health Concerns Infection Onset Date Last Indicated MDR E.coli (C) Comment:ESBL/MDR 09/26/2023 09/26/2023 Insurance [facility] MEDICARE PART A B Advance Directives For more information, please contact: [phone] Documents on File Type Date Recorded Patient Manager Flight Expl anation Power of Comic Book Writer 09/22/2023 * DNR - Limited Additional Intervention (Latest Code Status on File) Date Activated Date Inactivated Comments 09/22/2023 6:40 PM 09/27/2023 6:02 PM
--- OUTSIDE RECORDS SUMMARY | 2025-05-31 22:15 | XMS_ITS | Clinical Summary ---
Author Organization [facility] Address [address] [place] [address] Care Team Providers Care Dental Billing Specialist Name Role Phone System, Provider Not In [...] therelease of HIV test results or diagnoses. [id number] Allergies No known active allergies Medications [...] Advance Directives For more information, please contact: [phone] Documents on File Type Date Recorded Patient Financial Investment Adviser Expl anation Durable Power of Timing Inspector - scan 08/25/2022 11:34 PM * DNRCC-A (Latest Code Status on File) Date Activated Date Inactivated Comments 08/26/2022 5:45 AM 08/26/2022 11:12 PM Okay for in tubation * Full Code Date Activated Date Inactivated Comments 08/26/2022 5:40 AM 08/26/2022 5:45 AM Care Teams Dental Billing Specialist Relationship Specialty Start Date End Date System, Provider Not In PCP - General 08/25/22
--- OUTSIDE RECORDS SUMMARY | 2025-05-31 22:15 | XMS_ITS | Clinical Summary ---
[facility] Address [address] [place] [address] Care Team Providers Care Crew Foreman Name Role Phone Provider, No Known Primary [...] AAA SCREEN ONCE Completed 08/25/2022, 04/30/2018 Insurance [facility] Care Teams Crew Foreman Relationship Specialty Start Date End Date Provider, [place] [address] PCP - General 06/14/17
--- OUTSIDE RECORDS SUMMARY | 2025-05-31 22:16 | XMS_ITS | Clinical Summary ---
Author Organization [facility] Address [address] [place] [address] Care Team Providers Care Field Specialist Name Role Phone Paulo Brody Primary Care Provider [phone] Allergies Active Allergy Reactions Criticality Noted Date [...] time each day. 11/26/19 24 Active Nystop 104819 UNIT/GM powder APPLY TOPICALLY TO THE AFFECTED [...] Type Department Care Team Description 05/21/2025 Telephone [facility] [address] [place] [address] Elayne Campbell APRN HCN - Patient Message 05/15/2025 9:40 AM EST Office Visit [facility] [address] [place] [address] Elayne Campbell, [employer] Type 2 diabetes mellitus with diabetic neuropathy, with long-term current use of insulin (Primary Dx); Hypothyroidism, unspecified type; Neuropathy; Mixed hyperlipidemia 05/15/2025 Telephone [facility] [address] [place] [address] Elayne Campbell APRN 03/24/2025 Orders Only [facility] [address] [place] [address] Elayne Campbell APRN 03/24/2025 Telephone [facility] [address] [place] [address] Pierce Mckeon from Last 3 [...] Visit [facility] [address] [place] [address] Elayne Campbell, [employer] [address] [place] [address] Health Maintenance Due Date Last [...] 2007 UKY-Abdominal Aortic Aneurysm (AAA) Screening 2022 [id number] Vaccine (3 - season) 2025 04/20/2021, 09/30/2020 [...] Venous blood specimen / Unknown Elayne Campbell [employer] LAB BLOOD ORDERABLES Final Result * Acute Hepatitis Panel (04/30/2018 10:09 AM EST) Hepatitis B Surf Antigen NEGATIVE Reference Value: Negative [facility] Hepatitis C Antibody NEGATIVE Reference Range: Negative [facility] Hepatitis A Antibody IgM NEGATIVE Reference Value: Negative [facility]QUEST External Hepatitis B Core IgM (HBCM) NEGATIVE Reference Value: Negative [facility]QUEST 04/30/2018 10:0 9 AM EST 04/30/2018 10:17 AM EST Sara Ching [employer] LAB BLOOD ORDERABLES Final R esult [facility]QUEST from Last 3 Months or Most Recently Relevant to Health Maintenance Insurance MEDICARE [facility] Advance Directives Documents on File Type Date Recorded Patient Operator Prefinish Expl anation Power of Web Press Roll Tender 05/20/2024 power of a ttorney Care Teams Field Specialist Relationship Specialty Start Date End Date Paulo Brody DO [address] [place] [address] PCP - General 08/01/23
--- OUTSIDE RECORDS SUMMARY | 2025-05-31 22:16 | XMS_ITS | Referral Summary ---
Author Organization [employer] ([place], [place], [place], [place], [place]) Address [address] [place] [address] Care Team Providers Care Curer Acid Drum Name Role Phone Unavailable Primary Care Provider Unavailabl e Encounters Date Type Department Care Team Description 05/21/2025 Lab Requisition [facility] [address] [place] [address] Clifton Parr MD 05/14/2025 Lab Requisition [facility] [address] [place] [address] Clifton Parr MD Urinary tract infection, site not specified 05/14/2025 Travel 04/03/2025 Lab Requisition [facility] [address] [place] [address] Clifton Parr MD from Last 3 Months [...] the past 12 months, has t he [employer], gas, oil, or water [employer] threatened to shut off services in your [...] Do you speak a language other than [place]alese at [facility]? No 09/22/2023 Do you want help with [...] Procedure Name Priority Date/Time Associated Diagnosis Comments [facility] CBC SCAN Routine 05/21/2025 3:30 PM EST [...] Adequate 05/21/2025 4:03 PM EST [facility] RBC Morphology abnormal(A) Normal 4:03 PM EST [facility] Anisocytosis 2+ 05/21/2025 4:03 PM EST [facility] Hypochromia 2+ 05/21/2025 4:03 PM EST [facility] Microcytes 3+ 05/21/2025 4:03 PM EST [facility] Blood 05/21/2025 3:30 PM EST 05/21/2025 3:34 PM EST us Clifton Parr MD LAB BLOOD ORDERABLES Final R esult [facility] [address] [place] [address] * (ABNORMAL) CBC - Hemogram (SJ-BKR) (05/21/2025 3:30 PM EST) WBC 5.0 4.8 - 10.8 K/ L 05/21/2025 4:02 PM EST [facility] RBC 2.79(L) 3.80 - 5.20 M/ L 05/21/2025 4:02 PM [facility] Hemoglobin 4.7(LL) 12.8 - 17.4 GM/DL 05/21/2025 4:02 PM [facility] Hematocrit 19.0(L) 39.0 - 51.0 % 05/21/2025 4:02 PM [facility] MCV 68(L) 81 - 101 fL 05/21/2025 4:02 PM [facility] MCH <20.0(L) 27.0 - 34.0 pg 05/21/2025 4:02 PM [facility] MCHC <28.0(L) 32.0 - 36.0 GM/DL 05/21/2025 4:02 PM [facility] RDW 24.7(H) 11.5 - 14.5 % 05/21/2025 4:02 PM [facility] Platelets 342 150 - 400 K/CU MM 05/21/2025 4:02 PM [facility] MPV 10.2 9.4 - 12.4 fL 05/21/2025 4:02 PM [facility] Blood 05/21/2025 3:30 PM EST 05/21/2025 3:34 PM EST us Clifton Parr MD LAB BLOOD ORDERABLES Final R esult [facility] [address] [place] [address] * (ABNORMAL) Urinalysis, Reflex Microscopic and Culture If Indicated (05/14/2025 2:30 AM EST) Color, UA Straw 05/14/2025 4:31 PM [facility] Clarity, UA Clear 05/14/2025 4:31 PM [facility] Specific Ub[place], UA <=1.005 1.002 - 1.030 05/14/2025 4:31 PM [facility] pH, UA 7.0 5.0 - 9.0 05/14/2025 4:31 PM EST [facility] Leukocytes, UA 3+(A) Negative 05/14/2025 4:31 PM EST [facility] Nitrite, UA Negative Negative 05/14/2025 4:31 PM EST [facility] Protein, UA Negative Negative 05/14/2025 4:31 PM EST [facility] Glucose, UA Negative Negative 05/14/2025 4:31 PM EST [facility] Ketones, UA Negative Negative 05/14/2025 4:31 PM [facility] Bilirubin, UA Negative Negative 05/14/2025 4:31 PM EST [facility] Blood, UA Negative Negative 05/14/2025 4:31 PM [facility] Urobilinogen, UA 0.2 mg/dL Normal 05/14/2025 4:31 PM [facility] Specimen Source random 05/14/2025 4:31 PM [facility] Urine 05/14/2025 2:30 AM EST 05/14/2025 4:24 PM EST Clifton Parr MD URINE ORDERABLES Final Resul t [facility] [address] [place] [address] * (ABNORMAL) Urinalysis Microscopic Only (05/14/2025 2:30 AM EST) WBC, UA 5-10(A) None Seen, Occasional , 0-5 /HPF 05/14/2025 4:51 PM EST [facility] RBC, UA 0-5(A) None Seen, Rare /HPF 05/14/2025 4:51 PM EST [facility] Bacteria, UA 2+(A) None Seen 05/14/2025 4:51 PM EST [facility] SQUAMOUS EPITHELIAL 0-5(A) None Seen, Rare /HPF 05/14/2025 4:51 PM EST [facility] Urine 05/14/2025 2:30 AM EST 05/14/2025 4:24 PM EST us Clifton Parr MD URINE ORDERABLES Final Resul t [facility] [address] [place] [address], [facility] [phone] * Stool Culture (04/03/2025 8:30 AM EDT) Result No Salmonella, Shigella, Campylobacter , E.coli: 0157 screen negative. Normal enteric asaf isolated 04/06/2025 7:55 AM EST [facility] Feces FECES / Unknown 04/03/2025 8 :30 AM EDT 04/03/2025 11:54 AM EDT us Clifton Parr MD MICROBIOLOGY - GENERAL ORDER NAIN Final Result [facility] [address] [place], [place] [address] [phone] * C Difficle (04/03/2025 8:30 AM EDT) CDIFF RESULT Negative Negative 04/03/2025 3:43 PM EDT [facility] C. Difficile Ribotype 027 Presumptive Negative Presumptive Negative 04/03/2025 3:43 PM EDT [facility] Stool 04/03/2025 8:30 AM EDT 04/03/2025 11:54 AM EDT Narrative [facility] - 04/03/2025 3:43 PM [...] FLUIDS AND STOOLS ORDER NANI Final Result [facility] [address] [place] [address] * (ABNORMAL) Wound Culture + Gram Stain (04/03/2025 8:30 AM EDT) Result Heavy Growth Staphylococcus aureus(A) 04/07/2025 7:36 AM [facility] Result Moderate Growth Klebsiella aerogenes(A) 04/07/2025 7:36 AM [facility] Result Heavy Growth Coagulase negative Staphylococcus(A) 04/07/2025 7:36 AM [facility] Result Heavy Growth Corynebacterium species(A) 04/07/2025 7:36 AM [facility] Gram Stain Result Few WBCs 04/07/2025 7:36 AM [facility] Gram Stain Result Many gram positive cocci in pairs and clusters 04/07/2025 7:36 AM [facility] Gram Stain Result Rare gram positive rods 04/07/2025 7:36 AM [facility] Wound HEEL STRUCTURE / Unknown 04/03/2025 8:30 AM EDT 04/03/2025 11:54 AM EDT Narrative [facility] - 04/07/2025 7:36 AM [...] MICROBIOLOGY - GENERAL ORDER NANI Final Result [facility] [address] [place] [address], [facility] [phone] [facility] [address] [place] [address], [facility] [phone] from Last 3 Months Additional Health Concerns Infection Onset Date Last Indicated MDR E.coli (C) Comment:ESBL/MDR 09/26/2023 09/26/2023 Insurance [facility] MEDICARE PART A B Advance Directives For more information, please contact: [phone] Documents on File Type Date Recorded Patient Santa'S Helper Expl anation Power of Process Server 09/22/2023 * DNR - Limited Additional Intervention (Latest Code Status on File) Date Activated Date Inactivated Comments 09/22/2023 6:40 PM 09/27/2023 6:02 PM
--- OUTSIDE RECORDS SUMMARY | 2025-05-31 22:16 | XMS_ITS | Encounter Summary ---
Author Organization [employer] ([place], [place], [place], [place], [place]) Address [address] [place] [address] Care Team Providers Care Industrial Boilermaker Name Role Phone Unavailable Primary Care Provider Unavailabl e Encounter Details Date Type Department Care Team (Late st Contact Info) Description 04/03/2025 Lab Requisition [facility] [address] [place] [phone] Clifton Parr MD [address] [place] [address] Social History Tobacco Use Types [...] speak a language other than Turkmen at [facility]? No [...] Heavy Growth Staphylococcus aureus(A) 04/07/2025 7:36 AM [facility] Result Moderate Growth Klebsiella aerogenes(A) 04/07/2025 7:36 AM [facility] Result Heavy Growth Coagulase negative Staphylococcus(A) 04/07/2025 7:36 AM EST [facility] Result Heavy Growth Corynebacterium species(A) 04/07/2025 7:36 AM EST [facility] Gram Stain Result Few WBCs 04/07/2025 7:36 AM EST [facility] Gram Stain Result Many gram positive cocci in pairs and clusters 04/07/2025 7:36 AM EST [facility] Gram Stain Result Rare gram positive rods 04/07/2025 7:36 AM EST [facility] Wound HEEL STRUCTURE / Unknown 04/03/2025 8:30 AM EDT 04/03/2025 11:54 AM EDT [facility] - 04/07/2025 7:36 AM EST Mixed [...] MICROBIOLOGY - GENERAL ORDER NANI Final Result [facility] [address] [place] [address] [facility] [address] [place] [address] * Stool Culture (04/03/2025 8:30 AM EDT) Result No Salmonella, Shigella, Campylobacter , E.coli: 0157 screen negative. Normal enteric asaf isolated 04/06/2025 7:55 AM EST [facility] Feces FECES / Unknown 04/03/2025 8 :30 AM EDT 04/03/2025 11:54 AM EDT Clifton Parr MD MICROBIOLOGY - GENERAL ORDER NANI Final Result Performing Organization Address [facility]/ZIP Co de Phone Number [facility] [address] [phone] * C Difficle (04/03/2025 8:30 AM EDT) CDIFF RESULT Negative Negative 04/03/2025 3:43 PM EDT [facility] C. Difficile Ribotype 027 Presumptive Negative Presumptive Negative 04/03/2025 3:43 PM EDT [facility] Stool 04/03/2025 8:30 AM EDT 04/03/2025 11:54 AM EDT Narrative [facility] - 04/03/2025 3:43 PM EDT [employer] [...] FLUIDS AND STOOLS ORDER NANI Final Result [facility] [address] [phone] documented in this encounter Visit Diagnoses Not on filedocumented in this encounter Additional Health Concerns Infection Onset Date Last Indicated Resolved Time MDR E.coli (C) Comment:ESBL/MDR 09/26/2023 09/26/2023 documented as of this encounter
--- OUTSIDE RECORDS SUMMARY | 2025-05-31 22:16 | XMS_ITS | Encounter Summary ---
Author Organization [employer] ([place], [place], [place], [place], [place]) Address [address] [place] [address] Care Team Providers Care Surveyor Helper Rod Name Role Phone Unavailable Primary Care Provider Unavailabl e Encounter Details Date Type Department Care Team (Late st Contact Info) Description 05/21/2025 Lab Requisition [facility] [address] [place] [phone] Clifton Parr MD [address] [place] [address] Social History Tobacco Use Types [...] Do you speak a language other than [place]kin[place] at [facility]? No 09/22/2023 Do you want help [...] Procedure Name Priority Date/Time Associated Diagnosis Comments [facility] CBC SCAN Routine 05/21/2025 3:30 PM EST CBC HEMOGRAM (-BKR) Routine 05/21/2025 3:30 PM EST documented in this encounter Results * (ABNORMAL) CBC Scan (05/21/2025 3:30 PM EST) Platelet Estimate Adequate Adequate 05/21/2025 4:03 PM EST [facility] RBC Morphology abnormal(A) Normal 4:03 PM EST [facility] Anisocytosis 2+ 05/21/2025 4:03 PM EST [facility] Hypochromia 2+ 05/21/2025 4:03 PM EST [facility] Microcytes 3+ 05/21/2025 4:03 PM [facility] Blood 05/21/2025 3:30 PM EST 05/21/2025 3:34 PM EST us Clifton Parr MD LAB BLOOD ORDERABLES Final R esult [facility] [address] [place] [id number] [phone] * (ABNORMAL) CBC - Hemogram (SJ-BKR) (05/21/2025 3:30 PM EST) WBC 5.0 4.8 - 10.8 K/ L 05/21/2025 4:02 PM [facility] RBC 2.79(L) 3.80 - 5.20 M/ L 05/21/2025 4:02 PM [facility] Hemoglobin 4.7(LL) 12.8 - 17.4 GM/DL 05/21/2025 4:02 PM [facility] Hematocrit 19.0(L) 39.0 - 51.0 % 05/21/2025 4:02 PM [facility] MCV 68(L) 81 - 101 fL 05/21/2025 4:02 PM [facility] MCH <20.0(L) 27.0 - 34.0 pg 05/21/2025 4:02 PM [facility] MCHC <28.0(L) 32.0 - 36.0 GM/DL 05/21/2025 4:02 PM [facility] RDW 24.7(H) 11.5 - 14.5 % 05/21/2025 4:02 PM [facility] Platelets 342 150 - 400 K/CU MM 05/21/2025 4:02 PM [facility] MPV 10.2 9.4 - 12.4 fL 05/21/2025 4:02 PM [facility] Blood 05/21/2025 3:30 PM EST 05/21/2025 3:34 PM EST us Clifton Parr MD LAB BLOOD ORDERABLES Final R esult [facility] [address] [phone] documented in this encounter Visit Diagnoses Not on filedocumented in this encounter Additional Health Concerns Infection Onset Date Last Indicated Resolved Time MDR E.coli (C) Comment:ESBL/MDR 09/26/2023 09/26/2023 documented as of this encounter
--- OUTSIDE RECORDS SUMMARY | 2025-05-31 22:16 | XMS_ITS | Encounter Summary ---
Author Organization [employer] ([place], [place], [place], [place], [place]) Address [address] [place] [address] Care Team Providers Care Nursing Care Partner Name Role Phone Unavailable Primary Care Provider [...] Do you speak a language other than Maldivian at [place] or? No 09/22/2023 Do you want help with [...] on file documented as of this encounter Functional Status * Communicable Disease Screening Question Answer Date of Assessment Author Have you been in contact wit h someone who was sick? No / Unsure 05/14/2025 3:34 PM Chrissy Tai Do you have any of the follo wing new or worsening symptoms? None of these 05/14/2025 3:34 PM Chrissy Tai documented as of this encounter Plan of Treatment Not on file documented as of this encounter Visit Diagnoses Not on filedocumented in this encounter Additional Health Concerns Infection Onset Date Last Indicated Resolved Time MDR E.coli (C) Comment:ESBL/MDR 09/26/2023 09/26/2023 documented as of this encounter
--- OUTSIDE RECORDS SUMMARY | 2025-05-31 22:16 | XMS_ITS | Encounter Summary ---
Author Organization [employer] ([place], [place], [place], [place], [place]) Address [address] [place] [address] Care Team Providers Care Mixer Machine Feeder Name Role Phone Unavailable Primary Care Provider Unavailabl e Encounter Details Date Type Department Care Team (Late st Contact Info) Description 05/14/2025 Lab Requisition [facility] [address] [place] [phone] Clifton Parr MD [address] [place] [address] Urinary tract infection, site not specified Social [...] speak a language other than Citizen [place] at [facility]? No 09/22/2023 Do [...] , 0-5 /HPF 05/14/2025 4:51 PM EST [facility] RBC, UA 0-5(A) None Seen, Rare /HPF 05/14/2025 4:51 PM EST [facility] Bacteria, UA 2+(A) None Seen 05/14/2025 4:51 PM EST [facility] SQUAMOUS EPITHELIAL 0-5(A) None Seen, Rare /HPF 05/14/2025 4:51 PM EST [facility] Urine 05/14/2025 2:30 AM EST 05/14/2025 4:24 PM EST us Clifton Parr MD URINE ORDERABLES Final Resul t [facility] [address] [phone] * (ABNORMAL) Urinalysis, Reflex Microscopic and Culture If Indicated (05/14/2025 2:30 AM EST) Color, UA Straw 05/14/2025 4:31 PM [facility] Clarity, UA Clear 05/14/2025 4:31 PM [facility] Specific [place], UA <=1.005 1.002 - 1.030 05/14/2025 4:31 PM EST [facility] pH, UA 7.0 5.0 - 9.0 05/14/2025 4:31 PM [facility] Leukocytes, UA 3+(A) Negative 05/14/2025 4:31 PM EST [facility] Nitrite, UA Negative Negative 05/14/2025 4:31 PM EST [facility] Protein, UA Negative Negative 05/14/2025 4:31 PM [facility] Glucose, UA Negative Negative 05/14/2025 4:31 PM EST [facility] Ketones, UA Negative Negative 05/14/2025 4:31 PM [facility] Bilirubin, UA Negative Negative 05/14/2025 4:31 PM EST [facility] Blood, UA Negative Negative 05/14/2025 4:31 PM EST [facility] Urobilinogen, UA 0.2 mg/dL Normal 05/14/2025 4:31 PM EST [facility] Specimen Source random 05/14/2025 4:31 PM EST [facility] Urine 05/14/2025 2:30 AM EST 05/14/2025 4:24 PM EST us Clifton Parr MD URINE ORDERABLES Final Resul t [facility] [address] [place] [address] documented in this encounter Visit Diagnoses Diagnosis Urinary tract infection, site not specified documented in this encounter Additional Health Concerns Infection Onset Date Last Indicated Resolved Time MDR E.coli (C) Comment:ESBL/MDR 09/26/2023 09/26/2023 documented as of this encounter
--- OUTSIDE RECORDS SUMMARY | 2025-05-31 22:16 | XMS_ITS | Data Portability ---
Author Organization [facility] NERISSA Preston [place] Address [address] [place] [address] Care Team Providers Care Working Second Hand Name Role Phone BLADE TOURE Primary Care Provider Assessment No assessment recorded. 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 Procedures Surgical History Date Name Laterality Status Provider Name and Address Organization Details Recorded Time 4 Cystoscopy completed ALANA KELLEY MD [address] [place] [address], [phone] 09/28/2023 08:19:55 partial repair of rotator cuff completed Charles Lezama [facility] 04/24/2023 14:57:08 Imaging Results None recorded. Procedure Notes None recorded. Medical Equipment None Reported. Allergies Allergen ID Allergen Name Allergen Category Reaction Reaction Severity Criticality Documentation Date Start Date Code Code System Note Provider Name and Address Organization Details Recorded Time 254306 morphine sulfate medicatio n Not available Not available Not available 04/28/20162014 12091 RxNorm Comme nt: Creat ed By: Hever corona;Adenike luo Date: 2014 3:03: 33 PM; Not Available [facility] 6 03:28:58 [id number] Neurontin medicatio n Not available Not available Not available 04/24/2023 23104 8 [facility] 14:54:57 Medications Name Sig Start Date [...] active ESBL Ecoli UTI while admitted to [facility] Not Available Not Available Not Available Klor-Con [...] Updated DateTime 10/04/2023 177.8 cm 33 kg/m2 426298.25 g Adele Hernandez [facility] 10/04/2023 10:37:53 Date Recorded Body height Body mass index (BMI) Body weight Provider Name and Address Organization Details Last Updated DateTime 04/24/2023 180.34 cm 30.7 kg/m2 60280.32 g anil [facility] 04/24/2023 14:51:07 Date Recorded Body height Body mass index (BMI) Body weight Provider Name and Address Organization Details Last Updated DateTime 05/17/2023 177.8 cm 33 kg/m2 284369.25 g [facility] 05/17/2023 13:51:19 Social History Question Answer Notes LastModified by Organizat ion Details LastModified Time Tobacco Smoking Status Former Smoker Charles Lezama dior, [facility] 04/24/2023 14:57:42 What Was The Date Of Your Most Recent Tobacco Screening? 10/04/2023 Information not available 10/04/2023 Has Tobacco Cessation Counseling Been Provided? No [email or web address] Information not available 04/24/2023 Sex: Male Functional Status Question Answer Note LastModified by Organizat ion Details LastModified Time Do you use any illicit or recreational drugs? No [email or web address] Information not available 04/24/2023 Do you or have you ever used any other forms of tobacco or nicotine? No [email or web address] Information not available 04/24/2023 What is your level of alcohol consumption? Occasional [email or web address] Information not available 04/24/2023 Are you currently employed? No [email or web address] Information not available 04/24/2023 Mental Status None recorded. Family History Relationship Description Onset Age of this Age Resolved Age Notes LastModified by Organization Details LastModified Time Brother Diabetes mellitus [email or web address] Not available 04/05 14:58:11 Daughter Diabetes mellitus [email or web address] Not available 04/05 14:58:11 Maternal Aunt Family history of malignant neoplasm [email or web address] Not available 04/05 14:58:42 Maternal Uncle Family history of malignant neoplasm [email or web address] Not available 04/05 14:58:42 Medical History Condition Response Emphysema Y Depression Y Anxiety Disorder Y Arthritis Y High Cholesterol Y Chronic Obstructive Pulmonary Disease Y Anemia Y Diabetes Y Asthma Y Hypertension Y Past Encounters Encounter ID Performer Location Encounter Start Date Encounter Closed Date Diagnosis/Indication Diagnosis SNOMED-CT Code Diagnosis ICD10 Code Diagnosis IMO Codes Diagnosis Note [id number] [facility] [address] 09/04/2016 17:32:18 09/04/2016 17:32:18 [id number] EUSEBIO CHEN MD [facility] [address] [place] [address] 04/24/2023 14:04:08 04/24/2023 15:11:41 Retention of urine 120743690 R33.9 Benign pro static hyperplasia with outflow obstruction 031218480 N40.1 [id number] MD [facility] [address] [place] [address] 05/17/2023 13:02:31 05/17/2023 14:20:18 Retention of urine 017309853 R33.9 Benign pro static hyperplasia with outflow obstruction 347657053 N40.1 [id number] MD [facility] [address] [place] [address] 10/04/2023 10:18:19 10/04/2023 10:49:26 Retention of urine 866984343 R33.9 Health Concerns Section Related Observation LastModified by Organization Detai ls LastModified Time None Recorded Concern Status LastModified by Organization Details LastModified Time None Recorded Advance Directives Directive None Recorded Payers Insurance Date Sequence Insurance Name Policy Number Policy Alex Covered Member ID Alex Member ID Guarantor Name 10/04/2023 2 [facility] (MEDICARE SUPPLEMENT) Adeel Nichole [id number] Adeel Nichole 04/24/2023 1 [facility] - HMO[place] Adeel Nichole Jr [id number] Adeel Nichole 04/24/2023 3 [facility] - HMO) Adeel Deewyp [id number] Adeel Deweyp 10/04/2023 1 [place] Adeel Nichole Jr [id number] Adeel Nichole Notes Date Note Type [...] postvoid residual EUSEBIO CHEN MD [address] [place], [address], [facility] 04/24/2023 16:24:37 05/17/2023 text/html He failed a voiding trial and catheter is back in place. We talked about surgical intervention but he is a very high risk for any anesthesia. He would prefer just to keep the catheter. He does have home health. Will have him change his catheter every 4 to 6 weeks. EUSEBIO CHEN MD [address] [place], [address], [facility] 05/17/2023 14:30:08 10/04/2023 text/html Visiting nurse change his catheter and inflated the balloon in the urethra. He was admitted to the hospital and Dr. Kelley is cystoscopy with clot evacuation. Patient has some sepsis and hypotension. The urine is clear now. We will continue antibiotics we will have the visiting nurses change it on a monthly basis EUSEBIO CHEN MD [address] [place], [address], [facility] 10/04/2023 10:55:05
[2025-05-31 22:17] VITALS: BP 112/61; PULSE 92; RESP 22; TEMP 36.8; O2SAT 99; BMI 30.1
--- NOTE | 2025-05-31 22:21 | HMH.EDGENADL ---
Discharge Plan Disposition Patient Disposition: Home, Self-Care Prescriptions Prescriptions: No Action Ozempic 2 mg/dose (8 mg/3 mL) pen injector 2 mg SQ WEEKLY Rx Instructions: on mondays Santyl 250 unit/gram ointment 1 applic topical DAILY PRN (Reason: wound care) 30 Days Qty: 90 1RF Rx Instructions: Wound size 8.5 cm x 6.5 cm x 0.2cm= 282 grams (give qty#1-90 gram tube) apply 16.72 cm per application x 30 days. (DME) Heel Protectors (dme) 1 set See Rx Instructions .ROUTE .MEDSUPPLY Qty: 1 0RF Rx Instructions: [place], [facility] Please submit bilateral Podus Boots to offload heels. Apply to feet while in bed every night. insulin glargine [Basaglar KwikPen U-100 Insulin] 100 unit/mL (3 mL) insulin pen 80 unit SQ DAILY Anti-Itch (HC) 1 % aerosol,spray 1 applic topical BID Qty: 50 2RF nitroglycerin 0.4 mg tablet, sublingual 0.4 mg sublingual Q5-15M PRN (Reason: chest pain) Qty: 30 4RF Rx Instructions: do not exceed 3 doses per episode All Day Allergy (cetirizine) 10 mg capsule 10 mg PO DAILY PRN (Reason: Allergy Symptoms) cholecalciferol (vitamin D3) 50 mcg (2,000 unit) capsule 50 mcg PO DAILY insulin aspart U-100 [Novolog FlexPen U-100 Insulin] 100 unit/mL (3 mL) insulin pen 1 sliding scale dose SQ .COMPLEX Qty: 15 2RF Rx Instructions: 1 sliding scale dose subcutaneously 200 to 250, 10 units per every 50 up to 120 units; spironolactone 25 mg tablet 25 mg PO DAILY 90 Days Qty: 90 3RF methenamine hippurate 1 gram tablet 1 g PO DAILY Qty: 90 3RF furosemide 40 mg tablet 40 mg PO BID 30 Days Qty: 60 5RF ranolazine 500 mg tablet extended release 12 hr 500 mg PO BID Qty: 180 1RF Rx Instructions: do not break, crush, or chew tablet(s) topiramate [Topamax] 100 mg tablet 100 mg PO BID Qty: 60 2RF diazepam 5 mg tablet 5 mg PO TID 90 Days Qty: 270 0RF pregabalin 100 mg capsule 100 mg PO TID 90 Days Qty: 270 2RF metoprolol succinate 25 mg tablet extended release 24 hr 25 mg PO BID Qty: 180 1RF aripiprazole 5 mg tablet 5 mg PO DAILY Qty: 90 3RF oxycodone 15 mg tablet 15 mg PO QID PRN (Reason: pain) Qty: 120 0RF allopurinol 300 mg tablet 300 mg PO DAILY Qty: 90 3RF montelukast 10 mg tablet 10 mg PO HS Qty: 90 3RF tizanidine 4 mg tablet 4 mg PO BID PRN (Reason: muscle spasm) potassium chloride 20 mEq tablet,ER particles/crystals 20 meq PO DAILY pantoprazole 40 mg tablet,delayed release (DR/EC) 40 mg PO DAILY nystatin 100,000 unit/gram powder 1 applic topical TID Eliquis 5 mg tablet 5 mg PO BID 30 Days Qty: 60 0RF sulfamethoxazole-trimethoprim [Bactrim DS] 800-160 mg tablet 1 tab PO BID 7 Days Qty: 14 0RF levothyroxine 137 mcg capsule 137 mcg PO DAILY Qty: 30 0RF ferrous sulfate 325 mg (65 mg iron) tablet 325 mg PO BID Qty: 60 0RF polyethylene glycol 3350 [Miralax] 17 gram/dose powder 17 g PO DAILY Qty: 119 0RF Rx Instructions: Iron supplementation can cause constipation. Use MiraLAX as needed for constipation. Referrals Follow up/Referrals: Clifton Parr MD [Primary Care Provider, Family Practice] - See instructions Activity Restrictions/Add. Instructions Additional Instructions/Restrictions: Follow-up with your primary care doctor to discuss getting a doctors order for home health to perform Latham catheter replacements. If you develop any new or worsening symptoms, or if you become concerned for your help for any reason, return to the emergency department for Clinical Impressions Clinical Impression: Complication of Latham catheter Instructions Patient Instructions: DI for Urinary Tract Infection (UTI), DI for Urinary Tract Infection in Children Print Language Print Language: Indonesian Discharge ED Provider: Jona Serrano Adult [facility] General Chief complaint: Urogenital-Male Stated complaint: catheter issues Time Seen by Provider: 05/31/25 22:18 Mode of Arrival: EMS Source of Information: Patient Description of Symptoms (Recalled from ER Triage Doc. by RN): pt reports pain from his latham catheter, pt reports the home health agency that provides care to his latham has quit. pt denies any other pain History of Present Illness HPI narrative: Adeel Nichole is a 70y female with multiple medical comorbidities, chronic indwelling Latham catheter who presents to the emergency department for pain at the tip of his penis. Patient and family state that home health has been coming out but they changed companies recently and they will not change his Latham catheter unless there is a doctor's order. They state that it was last changed out 2 weeks. He started having pain at the tip of his penis today and feels that he needs his Latham catheter exchanged. He reports it was last changed proximately 2 weeks ago. He has no other complaints or concerns at this time Related Data Home Medications ?Medication ?Instructions ?Recorded ?Confirmed semaglutide 2 mg/dose (8 mg/3 mL) 2 mg SQ WEEKLY 06/14/23 05/21/25 subcutaneous pen injector (Ozempic) insulin glargine 100 unit/mL (3 80 unit SQ DAILY 05/12/24 05/22/25 mL) subcutaneous pen (Basaglar KwikPen U-100 Insulin) cetirizine 10 mg capsule (All Day 10 mg PO DAILY PRN Allergy Symptoms 05/16/24 05/21/25 Allergy (cetirizine)) cholecalciferol (vitamin D3) 50 50 mcg PO DAILY 05/16/24 05/21/25 mcg (2,000 unit) capsule nystatin 100,000 unit/gram topical 1 applic topical TID 05/22/25 05/22/25 powder pantoprazole 40 mg tablet,delayed 40 mg PO DAILY 05/22/25 05/22/25 release potassium chloride 20 mEq 20 meq PO DAILY 05/22/25 05/22/25 tablet,extended release(part/cryst) Held on 05/22/25. Instructions: Resume on 05/29/25. tizanidine 4 mg tablet 4 mg PO BID PRN muscle spasm 05/22/25 05/22/25 Previous Rx's ?Medication ?Instructions ?Recorded hydrocortisone 1 % topical spray 1 applic topical BID psoarsis #50 05/13/24 (Anti-Itch (hydrocortisone)) mL nitroglycerin 0.4 mg sublingual 0.4 mg sublingual Q5-15M PRN chest 05/14/24 tablet pain #30 tabs insulin aspart U-100 100 unit/mL 1 sliding scale dose SQ .COMPLEX 05/16/24 (3 mL) subcutaneous pen (Novolog Diabetes #15 mL FlexPen U-100 Insulin aspart) spironolactone 25 mg tablet 25 mg PO DAILY 90 days #90 tabs 06/12/24 Held on 05/22/25. Instructions: Resume on 05/29/25. methenamine hippurate 1 gram tablet 1 g PO DAILY #90 tabs 12/17/24 furosemide 40 mg tablet 40 mg PO BID 30 days #60 tabs 01/12/25 ranolazine 500 mg tablet,extended 500 mg PO BID #180 tabs 02/12/25 release,12 hr topiramate 100 mg tablet (Topamax) 100 mg PO BID #60 tabs 03/27/25 diazepam 5 mg tablet 5 mg PO TID 90 days #270 tabs 04/21/25 pregabalin 100 mg capsule 100 mg PO TID 90 days #270 caps 04/21/25 aripiprazole 5 mg tablet 5 mg PO DAILY #90 tabs 05/18/25 metoprolol succinate 25 mg 25 mg PO BID #180 tabs 05/18/25 tablet,extended release 24 hr Heel Protectors (dme) #1 ea 05/19/25 collagenase clostridium histo. 250 1 applic topical DAILY PRN wound 05/19/25 unit/gram topical ointment (Santyl) care 30 days #90 grams oxycodone 15 mg tablet 15 mg PO QID PRN pain #120 tabs 05/19/25 allopurinol 300 mg tablet 300 mg PO DAILY #90 tabs 05/20/25 montelukast 10 mg tablet 10 mg PO HS #90 tabs 05/20/25 apixaban 5 mg tablet (Eliquis) 5 mg PO BID 30 days #60 tabs 05/22/25 ferrous sulfate 325 mg (65 mg 325 mg PO BID #60 tabs 05/22/25 iron) tablet levothyroxine 137 mcg capsule 137 mcg PO DAILY #30 caps 05/22/25 polyethylene glycol 3350 17 17 g PO DAILY #119 grams 05/22/25 gram/dose oral powder (Miralax) sulfamethoxazole 800 1 tab PO BID 7 days #14 tabs 05/22/25 mg-trimethoprim 160 mg tablet (Bactrim DS) Allergies Allergy/AdvReac Type Severity Reaction Status Date / Time gabapentin (From Neurontin) Allergy Intermediate Rash Verified 05/19/25 13:57 [facility] Disclaimer: The information contained in this section may have been updated after the patient was seen, as this information can be updated by other users. Medical History Ulcer of right lower leg Diabetic ulcer of right heel HLD (hyperlipidemia) Functional quadriplegia Chronic pain Pressure ulcer, stage II, skin breakdown Pressure ulcers of skin of multiple topographic sites Constipation Constipation by delayed colonic transit Acute hyponatremia Catheter-associated urinary tract infection UTI (urinary tract infection) due to urinary indwelling catheter Palliative care status Tachycardia Acute exacerbation of chronic obstructive pulmonary disease Acute urinary retention At risk for osteoporosis Diabetes mellitus type 2 in obese At risk for polypharmacy Pneumonia Healthcare-associated pneumonia Chronic respiratory failure with hypoxia Chronic indwelling Latham catheter Peritracheal mass Acute urinary retention Cauda equina syndrome Paralysis, progressive Encounter for immunization Atypical angina Chest pain Abnormal EKG Edema Leg pain, bilateral SOB (shortness of breath) Chronic systolic heart failure CKD (chronic kidney disease) stage 2, GFR 60-89 ml/min Diabetes mellitus COPD (chronic obstructive pulmonary disease) HTN (hypertension) Surgical History H/O repair of rotator cuff Family History Other Diabetes Hypertension Stroke Social History Smoking Status: Never smoker alcohol intake: never substance use type: denies use current occupational status: unemployed Travel in the last 8 weeks?: None household members: spouse housing: house caffeine: Yes Have you lived/traveled outside [place] in past 30 days?: No Contact w/someone who lives/traveled outside [place] past 30 days?: No Exposure to someone with infectious disease in past 14 days?: No Do you have a fever (greater than 100.4 F or 38 C)?: No Have you tested positive for COVID-19?: No Exposed to someone with COVID-19 in past 14 days?: No Do you have a sore throat?: No Do you have a cough?: No Do you have any weakness?: No Do you have any diarrhea?: No Are you experiencing any unusual bleeding?: No Do you have any muscle aches/pain?: No Do you have any abdominal pain?: No Are you experiencing loss of taste or smell?: No Other Medical History Have you received the Flu Vaccine for this season: No Have you received the Pneumonia Vaccine: No ROS Obtained: Yes Systems reviewed as appropriate & no additional complaints except as documented Physical Exam General General appearance: alert and in no apparent distress Head Head exam: atraumatic Eye Eye exam: Present normal appearance ENT ENT exam: Present normal external ear exam Neck Neck exam: Present full ROM Chest Chest inspection: Present symmetric chest wall rise Respiratory Respiratory exam: Present normal lung sounds bilaterally; Absent respiratory distress Cardiovascular Cardiovascular exam: Present regular rate and normal rhythm Abdominal Exam Abdominal exam: Present soft; Absent tenderness or guarding exam: Present deferred Extremities Exam Extremities exam: Present normal inspection Back Exam Back exam: Present normal inspection Neurological Exam Neurological exam: Present alert and oriented X3 Psychiatric Psychiatric exam: Present normal affect Skin Skin exam: Present warm and dry Medical Decision Making Medical Records Screening: Per USPSTF and CDC recommendations, given the prevalence of disease in our region, it is our hospital?s policy to screen for HIV and viral Hepatitis for all patients aged 18 and over and those with ongoing risk factors. [place] Inquiry Pt receiving controlled substance: No Vital Signs: 05/31/25 22:17 Temperature 98.2 F Temperature Source Oral Pulse Rate [Right] 92 H Respiratory Rate 22 Blood Pressure [Right Arm] 112/61 Blood Pressure Mean [Right Arm] 78 02 Sat by Pulse Oximetry 99 Oxygen Delivery Method Nasal Cannula Oxygen Flow Rate (LPM) 2 Medical Decision Narrative: Adeel Nichole is a 70y female with multiple medical comorbidities, chronic indwelling Latham catheter who presents to the emergency department for pain at the tip of his penis. Patient and family state that home health has been coming out but they changed companies recently and they will not change his Latham catheter unless there is a doctor's order. They state that it was last changed out 2 weeks. He started having pain at the tip of his penis today and feels that he needs his Latham catheter exchanged. He reports it was last changed proximately 2 weeks ago. He has no other complaints or concerns at this time. Patient is hemodynamically stable on arrival, on his baseline oxygen requirement, afebrile. Physical exam, stated above, revealed overall well-appearing male in no distress. He has no complaints other than pain at the tip of his penis secondary to chronic indwelling Latham catheter. I have low concern for urinary tract infection as his urine is clear and he does not have a fever. Will exchange Latham catheter today. I encouraged him follow-up with Dr. Francois, his primary care doctor, for doctors order for home health to change his Latham catheter in the future. He demonstrated understanding and was in agreement this plan. He was then discharged from the emergency department in stable condition. Critical Care Critical Care Time Critical Care Time: No
[2025-05-31 23:07] VITALS: BP 111/50; PULSE 89; RESP 20; TEMP 36.8; O2SAT 100
== END 2025-05-31 23:28 | disposition home or self-care (01) ==
PROVIDERS: Emergency Provider Student in an Organized Health Care Education/Training Program; PCP Family Medicine
DX: T83.091A Other mechanical complication of indwelling urethral catheter, initial encounter (principal)
CPT/HCPCS: 99282; 99283